=== PATIENT | female | born 1965 | race Caucasian/White ===

== ENCOUNTER 2016-10-16 12:29 | Emergency (ER) | payer MEDICARE, OTHER ==
--- NOTE | 2016-10-16 12:41 | ED ---
SOB HPI - General Chief Complaint: Shortness of Breath Stated Complaint: Syncope Time Seen by Provider: 10/16/16 12:39 Source: patient, EMS Mode of arrival: EMS Limitations: no limitations - History of Present Illness Initial Comments: 51-year-old female presents via EMS. She is at a [facility] she felt dizzy for down to her buttocks but did not pass out. She has no headaches no current dizziness she did not take her blood pressure medicine when she awoke she states one about an hour ago. She is on the Catapres losartan as well as another. She has no current headache dizziness blurry vision double vision chest pain or shortness of breath at the time she states she did feel short of breath but is now feeling better. She has a history of COPD. The patient's ability to answer she appears to know her history she is somewhat guarded and is very simple and her answers. She only indicates she wants to go home back to [facility] she is or 5 days apparently because of depression. - Related Data Home Medications Medication Instructions Recorded Confirmed cloNIDine HCL 0.3 mg PO TID 02/11/16 10/16/16 Losartan Potassium [Cozaar] 100 mg PO DAILY 03/26/16 10/16/16 amLODIPine BESYLATE [Norvasc] 5 mg PO DAILY 05/13/16 10/16/16 HYDROcodone/APAP 7.5-325MG [[place] 1 tab PO BID PRN 09/19/16 10/16/16 7.5-325] diphenhydrAMINE [Benadryl] 50 mg PO HS PRN 10/16/16 10/16/16 Allergies Allergy/AdvReac Type Severity Reaction Status Date / Time latex Allergy Rash/Hives Verified 10/16/16 12:36 levofloxacin [From Levaquin] Allergy Rash/Hives Verified 10/16/16 12:36 Penicillins Allergy Rash/Hives Verified 10/16/16 12:36 propoxyphene Allergy Unknown Verified 10/16/16 12:36 Quinolones Allergy Rash/Hives Verified 10/16/16 12:36 Sulfa (Sulfonamide Allergy Unknown Verified 10/16/16 12:36 Antibiotics) Iodinated Contrast Media - AdvReac Unknown Verified 10/16/16 12:36 Oral and Review of Systems ROS Statement: Those systems with pertinent positive or pertinent negative responses have been documented in the HPI. ROS Other: All systems not noted in ROS Statement are negative. Constitutional: Denies: fever, chills Eyes: Denies: eye pain ENT: Denies: ear pain, throat pain Respiratory: Denies: cough Cardiovascular: Denies: chest pain Endocrine: Denies: fatigue Gastrointestinal: Denies: abdominal pain, nausea, vomiting, diarrhea Genitourinary: Denies: urgency, dysuria, frequency Skin: Denies: rash Neurological: Denies: headache, weakness, numbness, paresthesias, confusion, abnormal gait, vertigo Psychiatric: Denies: anxiety, depression Past Medical History Past Medical History: Hypertension, Respiratory Disorder, Sleep Apnea/CPAP/BIPAP Additional Past Medical History / Comment(s): head injury in the past History of Any Multi-Drug Resistant Organisms: None Reported Past Surgical History: Section, Uterine Ablation Additional Past Surgical History / Comment(s): eye surgery, lithotripsy Past Anesthesia/Blood Transfusion Reactions: No Reported Reaction Past Psychological History: Bipolar, Depression, Schizophrenia Smoking Status: Current every day smoker Past Alcohol Use History: None Reported Past Drug Use History: None Reported Additional Drug Use History / Comment(s): Pt's. UDS is positive for opiates and methamphetamines. - Past Family History Mother Family Medical History: Unable to Obtain Father Family Medical History: Unable to Obtain General Exam Limitations: no limitations General appearance: alert, in no apparent distress Head exam: Present: atraumatic Eye exam: Present: PERRL, EOMI ENT exam: Present: normal oropharynx, mucous membranes moist, TM's normal bilaterally Respiratory exam: Present: normal lung sounds bilaterally Cardiovascular Exam: Present: normal rhythm, normal heart sounds GI/Abdominal exam: Present: soft. Absent: tenderness, guarding Neurological exam: Present: alert, CN II-XII intact Psychiatric exam: Present: normal affect, normal mood Skin exam: Present: warm, dry Course Vital Signs 10/16/16 10/16/16 12:32 12:43 Temperature 97.4 F L Pulse Rate 108 H Respiratory 22 18 Rate Blood Pressure 178/89 O2 Sat by Pulse 96 Oximetry Medical Decision Making - Medical Decision Making Patient appears to be been dizzy from not taking her blood pressure pill her initial blood pressure was 170s to 180s. Is now down to 148 systolic she feels well she would like to go home her lab work is satisfactory chest x-ray shows a chronic right middle lobe scarring or infiltrate. She states she's believe she had a CAT scan in the past we have offered to do the CAT scan here she wants to go home with told her to be sure to discuss this with Dr. Parr. - Lab Data Result diagrams: 10/16/16 13:05 10/16/16 13:05 Lab Results 10/16/16 10/16/16 10/16/16 Range/Units 13:05 13:05 13:05 WBC 10.1 (3.8-10.6) k/uL RBC 5.35 (3.80-5.40) m/uL Hgb 17.2 H (11.4-16.0) gm/dL Hct 52.4 H (34.0-46.0) % MCV 97.8 (80.0-100.0) fL MCH 32.1 (25.0-35.0) pg MCHC 32.8 (31.0-37.0) g/dL RDW 13.4 (11.5-15.5) % Plt Count 317 (150-450) k/uL Neutrophils % 71 % Lymphocytes % 22 % Monocytes % 4 % Eosinophils % 1 % Basophils % 1 % Neutrophils # 7.2 (1.3-7.7) k/uL Lymphocytes # 2.2 (1.0-4.8) k/uL Monocytes # 0.4 (0-1.0) k/uL Eosinophils # 0.1 (0-0.7) k/uL Basophils # 0.1 (0-0.2) k/uL PT (9.0-12.0) sec INR (<1.1) APTT (22.0-30.0) sec Sodium 143 (137-145) mmol/L Potassium 4.5 (3.5-5.1) mmol/L Chloride 106 (98-107) mmol/L Carbon Dioxide 26 (22-30) mmol/L Anion Gap 11 mmol/L BUN 8 (7-17) mg/dL Creatinine 0.66 (0.52-1.04) mg/dL Est GFR (MDRD) Af Amer >60 (>60 ml/min/1.73 sqM) Est GFR (MDRD) Non-Af >60 (>60 ml/min/1.73 sqM) Glucose 121 H (74-99) mg/dL Calcium 9.8 (8.4-10.2) mg/dL Total Bilirubin 0.6 (0.2-1.3) mg/dL AST 22 (14-36) U/L ALT 29 (9-52) U/L Alkaline Phosphatase 103 (38-126) U/L Total Creatine Kinase 90 (30-135) U/L CK-MB (CK-2) 1.9 (0.0-2.4) ng/mL CK-MB (CK-2) Rel Index 2.1 Troponin I <0.012 (0.000-0.034) ng/mL Total Protein 7.4 (6.3-8.2) g/dL Albumin 4.2 (3.5-5.0) g/dL 10/16/16 Range/Units 13:05 WBC (3.8-10.6) k/uL RBC (3.80-5.40) m/uL Hgb (11.4-16.0) gm/dL Hct (34.0-46.0) % MCV (80.0-100.0) fL MCH (25.0-35.0) pg MCHC (31.0-37.0) g/dL RDW (11.5-15.5) % Plt Count (150-450) k/uL Neutrophils % % Lymphocytes % % Monocytes % % Eosinophils % % Basophils % % Neutrophils # (1.3-7.7) k/uL Lymphocytes # (1.0-4.8) k/uL Monocytes # (0-1.0) k/uL Eosinophils # (0-0.7) k/uL Basophils # (0-0.2) k/uL PT 11.1 (9.0-12.0) sec INR 1.1 (<1.1) APTT 25.5 (22.0-30.0) sec Sodium (137-145) mmol/L Potassium (3.5-5.1) mmol/L Chloride (98-107) mmol/L Carbon Dioxide (22-30) mmol/L Anion Gap mmol/L BUN (7-17) mg/dL Creatinine (0.52-1.04) mg/dL Est GFR (MDRD) Af Amer (>60 ml/min/1.73 sqM) Est GFR (MDRD) Non-Af (>60 ml/min/1.73 sqM) Glucose (74-99) mg/dL Calcium (8.4-10.2) mg/dL Total Bilirubin (0.2-1.3) mg/dL AST (14-36) U/L ALT (9-52) U/L Alkaline Phosphatase (38-126) U/L Total Creatine Kinase (30-135) U/L CK-MB (CK-2) (0.0-2.4) ng/mL CK-MB (CK-2) Rel Index Troponin I (0.000-0.034) ng/mL Total Protein (6.3-8.2) g/dL Albumin (3.5-5.0) g/dL - EKG Data -: EKG Interpreted by Me 10/16/16 12:40 EKG 10/16/2016 1236 ventricular rate 103 bpm, ME interval 170 ms, QRS duration 80 ms, QT interval 356 ms sinus tachycardia 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 Just some minor T ST-T changes and flattening. - Radiology Data Radiology results: report reviewed Mild cardiomegaly. Mild pulmonary fibrotic changes. There is chronic right middle lobe infiltrate and atelectasis that is significantly different than but appears to be overall slightly increased compared to old exam is back in 2011 clinical significance of this is not clear Disposition Clinical Impression: Dizziness, Hypertension, Pulmonary infiltrate in right lung on chest x-ray Disposition: HOME SELF-CARE Condition: Fair Instructions: Hypertension (ED) Additional Instructions: Take medications regularly, low-salt diet, follow-up with Dr. Kendrick regarding chronic right middle lobe infiltrate Referrals: Nico Parr MD [Primary Care Provider] - 1-2 days Time of Disposition: 14:09
[2016-10-16 13:13] LABS: Basophils # (A) 0.1 k/uL (0-0.2); Basophils % (A) 1 %; CH 32.8; CHCM 33.7; Eosinophils # (A) 0.1 k/uL (0-0.7); Eosinophils % (A) 1 %; HCT 52.4 % (34.0-46.0); HDW 2.39; HGB 17.2 gm/dL (11.4-16.0); Luc # (Auto) 0.13; Luc % (Auto) 1; Lymphocytes # (A) 2.2 k/uL (1.0-4.8); Lymphocytes % (A) 22 %; MCH 32.1 pg (25.0-35.0); MCHC 32.8 g/dL (31.0-37.0); MCV 97.8 fL (80.0-100.0); Mean Platelet Volume 7.9; Monocytes # (A) 0.4 k/uL (0-1.0); Monocytes % (A) 4 %; Neutrophils # (A) 7.2 k/uL (1.3-7.7); Neutrophils % (A) 71 %; RBC 5.35 m/uL (3.80-5.40); RDW 13.4 % (11.5-15.5); WBC 10.1 k/uL (3.8-10.6); WBC (Perox) 9.89
[2016-10-16 13:22] LABS: INR 1.1 (<1.1); Partial Thromboplastin Time 25.5 sec (22.0-30.0); Prothrombin Time 11.1 sec (9.0-12.0)
[2016-10-16 13:24] LABS: ALT 29 U/L (9-52); AST 22 U/L (14-36); Alkaline Phosphatase 103 U/L (38-126); Anion Gap 11 mmol/L; Blood Urea Nitrogen 8 mg/dL (7-17); Calcium 9.8 mg/dL (8.4-10.2); Carbon Dioxide 26 mmol/L (22-30); Chloride 106 mmol/L (98-107); Glucose 121 mg/dL (74-99); Non-African American GFR(MDRD) >60 (>60 ml/min/1.73 sqM); Sodium 143 mmol/L (137-145); Total Bilirubin 0.6 mg/dL (0.2-1.3); Total Protein 7.4 g/dL (6.3-8.2)
[2016-10-16 13:27] LABS: Creatine Kinase 90 U/L (30-135)
--- NOTE | 2016-10-16 13:31 | XR ---
EXAMINATION TYPE: XR chest 2V DATE OF EXAM: 10/16/2016 1:20 PM COMPARISON: 09/19/2016 HISTORY: Chest pain TECHNIQUE: Frontal and lateral views of the chest are obtained. FINDINGS: Heart is enlarged. There is coarsening of interstitial markings. There is no pleural effus ion. There are no hilar masses. There are chest leads. Bony thorax is intact. There is increased dens ity over the heart on the lateral view of the chest thought to be related to some consolidation and a telectasis in the right middle lobe at the right cardiac border. IMPRESSION: Mild cardiomegaly. Mild pulmonary fibrotic changes. There is a chronic right middle lobe infiltrate and atelectasis that is not significantly different than 07/16/2016 but appears to be ove rall slowly increasing compared to old exams back to 2011. The clinical significance of this is not c lear.
[2016-10-16 13:35] LABS: Potassium 4.5 mmol/L (3.5-5.1)
[2016-10-16 13:40] LABS: Creatine Kinase MB 1.9 ng/mL (0.0-2.4); Troponin I <0.012 ng/mL (0.000-0.034)
[2016-10-16 14:20] VITALS: BP 157/86; PULSE 73; RESP 16; TEMP 98.1
[2016-10-17 07:38] LABS: Glucose,Whole Blood 121 mg/dL (75-99)
== END 2016-10-16 14:28 | disposition home or self-care (01) ==
LOC: EC 12:29
DX: R42 Dizziness and giddiness (principal); R91.8 Other nonspecific abnormal finding of lung field; I10 Essential (primary) hypertension; F17.200 Nicotine dependence, unspecified, uncomplicated; G47.30 Sleep apnea, unspecified; Z99.89 Dependence on other enabling machines and devices; Z79.899 Other long term (current) drug therapy; Z88.0 Allergy status to penicillin; Z88.1 Allergy status to other antibiotic agents; Z88.2 Allergy status to sulfonamides; Z91.040 Latex allergy status
CPT/HCPCS: 36415; 71020; 80053; 82550; 82553; 84484; 85025; 85610; 85730; 93005; 99285

== ENCOUNTER 2016-10-20 12:10 | Emergency (ER) | payer MEDICARE, OTHER ==
[2016-10-20] MEDS ORDERED: methylPREDNISolone SOD SUCCI 125 MG/2 ML VIAL IV STA (12:20)
[2016-10-20] MEDS ORDERED: diphenhydrAMINE 50 MG/ML 1 ML VIAL IVP STA (12:20)
[2016-10-20] MEDS ORDERED: RX INFO: IV CONTRAST WAS GIVEN 1 EACH MISC MISCELLANE PRN (12:20)
--- NOTE | 2016-10-20 12:23 | ED ---
SOB HPI - General Chief Complaint: Shortness of Breath Stated Complaint: MARINA Time Seen by Provider: 10/20/16 12:16 Source: patient, EMS Mode of arrival: EMS Limitations: no limitations - History of Present Illness Initial Comments: Patient complains of chest pain and shortness of breath which began this morning. She has no belly pain. She has no lightheadedness. She has no dizziness. She has no neck pain or stiffness. She has no change in vision or hearing. She has not taken any medication for her symptoms. The pain is in the middle of the chest. It is nonradiating. There are no exacerbating or relieving factors. She denies any recent long plane or car rides. She has had no sick contacts or travel anywhere. - Related Data Home Medications Medication Instructions Recorded Confirmed cloNIDine HCL 0.3 mg PO TID 02/11/16 10/20/16 Losartan Potassium [Cozaar] 100 mg PO DAILY 03/26/16 10/20/16 amLODIPine BESYLATE [Norvasc] 5 mg PO DAILY 05/13/16 10/20/16 HYDROcodone/APAP 7.5-325MG [[place] 1 tab PO BID PRN 09/19/16 10/20/16 7.5-325] diphenhydrAMINE [Benadryl] 50 mg PO HS PRN 10/16/16 10/20/16 Allergies Allergy/AdvReac Type Severity Reaction Status Date / Time latex Allergy Rash/Hives Verified 10/20/16 12:22 levofloxacin [From Levaquin] Allergy Rash/Hives Verified 10/20/16 12:22 Penicillins Allergy Rash/Hives Verified 10/20/16 12:22 propoxyphene Allergy Unknown Verified 10/20/16 12:22 Quinolones Allergy Rash/Hives Verified 10/20/16 12:22 Sulfa (Sulfonamide Allergy Unknown Verified 10/20/16 12:22 Antibiotics) Iodinated Contrast Media - AdvReac Unknown Verified 10/20/16 12:22 Oral and Review of Systems ROS Statement: Those systems with pertinent positive or pertinent negative responses have been documented in the HPI. ROS Other: All systems not noted in ROS Statement are negative. Past Medical History Past Medical History: Hypertension, Respiratory Disorder, Sleep Apnea/CPAP/BIPAP Additional Past Medical History / Comment(s): head injury in the past History of Any Multi-Drug Resistant Organisms: None Reported Past Surgical History: Section, Uterine Ablation Additional Past Surgical History / Comment(s): eye surgery, lithotripsy Past Anesthesia/Blood Transfusion Reactions: No Reported Reaction Past Psychological History: Bipolar, Depression, Schizophrenia Smoking Status: Current every day smoker Past Alcohol Use History: None Reported Past Drug Use History: None Reported Additional Drug Use History / Comment(s): Pt's. UDS is positive for opiates and methamphetamines. - Past Family History Mother Family Medical History: Unable to Obtain Father Family Medical History: Unable to Obtain General Exam Limitations: no limitations General appearance: alert, in no apparent distress Head exam: Present: atraumatic, normocephalic, normal inspection Eye exam: Present: normal appearance, PERRL, EOMI. Absent: scleral icterus, conjunctival injection, periorbital swelling ENT exam: Present: normal exam, mucous membranes moist Neck exam: Present: normal inspection. Absent: tenderness, meningismus, lymphadenopathy Respiratory exam: Present: normal lung sounds bilaterally. Absent: respiratory distress, wheezes, rales, rhonchi, stridor Cardiovascular Exam: Present: regular rate, normal rhythm, normal heart sounds. Absent: systolic murmur, diastolic murmur, rubs, gallop, clicks GI/Abdominal exam: Present: soft, normal bowel sounds. Absent: distended, tenderness, guarding, rebound, rigid Extremities exam: Present: normal inspection, full ROM, normal capillary refill. Absent: tenderness, pedal edema, joint swelling, calf tenderness Back exam: Present: normal inspection Neurological exam: Present: alert, oriented X3, CN II-XII intact Psychiatric exam: Present: normal affect, normal mood Skin exam: Present: warm, dry, intact, normal color. Absent: rash Course Vital Signs 10/20/16 10/20/16 12:15 13:13 Temperature 97.9 F Pulse Rate 85 100 Respiratory 20 18 Rate Blood Pressure 141/69 164/87 O2 Sat by Pulse 97 98 Oximetry Medical Decision Making - Medical Decision Making Patient is complaining of chest pain. The differential includes pulmonary embolus and, acute coronary syndrome, pneumothorax or pneumonia. I ordered a CAT scan of the chest as well as laboratory studies. However patient decided that she does not want any workup and is choosing to leave AGAINST MEDICAL ADVICE. She is alert and oriented 3, capable of making her own medical decisions. I explained to the patient the serious risk of , however she refused to stay. 10/20/16 12:23 Twelve-lead EKG obtained, interpreted by me as showing ventricular rate 105 bpm , normal RI interval and QRS complex is, no ST elevation or depression, interpreted by me as sinus tachycardia. Disposition Clinical Impression: Chest pain Disposition: Left Against Medical Advice Condition: Good Time of Disposition: 13:27
[2016-10-20 13:16] VITALS: BP 164/87; PULSE 100; RESP 18
[2016-10-20] MEDS ORDERED: cloNIDine HCL 0.1 MG TAB PO STA (13:16)
[2016-10-20] MEDS ORDERED: LORazepam 2 MG/ML SYRINGE IV STA (13:17)
[2016-10-20 13:30] VITALS: TEMP 97.8
[2016-10-20 13:43] LABS: Basophils # (A) 0.1 k/uL (0-0.2); Basophils % (A) 1 %; CH 32.6; CHCM 33.2; Eosinophils # (A) 0.2 k/uL (0-0.7); Eosinophils % (A) 2 %; HDW 2.26; HGB 17.3 gm/dL (11.4-16.0); Luc # (Auto) 0.13; Luc % (Auto) 1; Lymphocytes # (A) 1.9 k/uL (1.0-4.8); Lymphocytes % (A) 22 %; MCH 32.8 pg (25.0-35.0); MCHC 33.4 g/dL (31.0-37.0); MCV 98.4 fL (80.0-100.0); Mean Platelet Volume 7.3; Monocytes # (A) 0.6 k/uL (0-1.0); Monocytes % (A) 7 %; Neutrophils % (A) 67 %; RBC 5.28 m/uL (3.80-5.40); RDW 13.1 % (11.5-15.5); WBC 8.9 k/uL (3.8-10.6); WBC (Perox) 8.78
[2016-10-20 13:50] LABS: INR 1.1 (<1.1); Partial Thromboplastin Time 25.4 sec (22.0-30.0); Prothrombin Time 11.1 sec (9.0-12.0)
== END 2016-10-20 13:29 | disposition left against medical advice (07) ==
LOC: EC 12:10 → EEVIPCON 12:10 → EC 13:29
DX: R07.9 Chest pain, unspecified (principal); Z79.899 Other long term (current) drug therapy; Z88.0 Allergy status to penicillin; Z88.2 Allergy status to sulfonamides; Z88.8 Allergy status to other drugs, medicaments and biological substances; Z88.1 Allergy status to other antibiotic agents; Z91.041 Radiographic dye allergy status; Z91.040 Latex allergy status; I10 Essential (primary) hypertension; G47.30 Sleep apnea, unspecified; F17.200 Nicotine dependence, unspecified, uncomplicated
CPT/HCPCS: 36415; 83880; 85025; 85610; 85730; 93005; 99285

== ENCOUNTER 2016-10-21 10:58 | Emergency (ER) | payer MEDICARE, OTHER ==
[2016-10-21 11:04] VITALS: TEMP 98
--- NOTE | 2016-10-21 11:40 | ED ---
General Adult HPI - General Chief complaint: Chest Pain Stated complaint: MARINA, CHEST PAIN, DIZZINESS Time Seen by Provider: 10/21/16 11:17 Source: patient, RN notes reviewed, old records reviewed Mode of arrival: wheelchair Limitations: no limitations - History of Present Illness Initial comments: Complaint history of present illness this is a 51-year-old female who was brought to the emergency room from her [facility] area because of complaint of shortness of breath and chest pain. Patient's been in emergency room several times this week. With similar complaints. Yesterday's notes report that the patient signed out AGAINST MEDICAL ADVICE. She states she did that because she can't lay down flat. Patient reports the pain is in the chest that the left side of the neck. Nausea but no sweats. Not reproducible. Sometimes it comes and lasts an hour and then gone. Currently chest pain-free. Reports that she is short of breath. States that she thinks she was told she had COPD in the past. - Related Data Home Medications Medication Instructions Recorded Confirmed cloNIDine HCL 0.3 mg PO TID 02/11/16 10/21/16 Losartan Potassium [Cozaar] 100 mg PO DAILY 03/26/16 10/21/16 amLODIPine BESYLATE [Norvasc] 5 mg PO DAILY 05/13/16 10/21/16 HYDROcodone/APAP 7.5-325MG [[place] 1 tab PO BID PRN 09/19/16 10/21/16 7.5-325] diphenhydrAMINE [Benadryl] 50 mg PO HS PRN 10/16/16 10/21/16 Allergies Allergy/AdvReac Type Severity Reaction Status Date / Time latex Allergy Rash/Hives Verified 10/21/16 11:22 levofloxacin [From Levaquin] Allergy Rash/Hives Verified 10/21/16 11:22 Penicillins Allergy Rash/Hives Verified 10/21/16 11:22 propoxyphene Allergy Unknown Verified 10/21/16 11:22 Quinolones Allergy Rash/Hives Verified 10/21/16 11:22 Sulfa (Sulfonamide Allergy Unknown Verified 10/21/16 11:22 Antibiotics) Iodinated Contrast Media - AdvReac Unknown Verified 10/21/16 11:22 Oral and Review of Systems ROS Statement: Those systems with pertinent positive or pertinent negative responses have been documented in the HPI. Review of systems. No visual acuity changes or headache she has discomfort when she hasn't into her chest up to her left side of her neck. Currently chest pain-free. When she has pain she is nauseated but denies being diaphoretic. No upset stomach no GI/ problems. No diarrhea. No significant change in any other activities. All systems were reviewed. Past medical problems bipolarschizophrenia. Hypertension, respiratory disorder which the patient characterizes his COPD. Says she has sleep apnea and does not use her CPAP machine. Reportedly per chart has had a head injury in the past which she can't remember. Also kidney stones. Surgeries , uterine ablation, eye surgery and lithotripsy. Family history mother had leukemia. Father had heart disease. Rations ALLERGIES include latex, Levaquin, penicillin, Darvocet, sulfa. Smoker. ROS Other: All systems not noted in ROS Statement are negative. Past Medical History Past Medical History: Hypertension, Respiratory Disorder, Sleep Apnea/CPAP/BIPAP Additional Past Medical History / Comment(s): head injury in the past History of Any Multi-Drug Resistant Organisms: None Reported Past Surgical History: Section, Uterine Ablation Additional Past Surgical History / Comment(s): eye surgery, lithotripsy Past Anesthesia/Blood Transfusion Reactions: No Reported Reaction Past Psychological History: Bipolar, Depression, Schizophrenia Smoking Status: Current every day smoker Past Alcohol Use History: None Reported Past Drug Use History: None Reported Additional Drug Use History / Comment(s): Pt's. UDS is positive for opiates and methamphetamines. - Past Family History Mother Family Medical History: Unable to Obtain Father Family Medical History: Unable to Obtain General Exam - General Exam Comments Initial Comments: General: The patient is awake and alert, in no distress, and does not appear acutely ill. Currently chest pain-free. Currently only complaining of some shortness of breath. Patient reports she has COPD and she smokes. Strongly encouraged stop her smoking. The patient's vital signs show temperature 98.0 pulse 97 respiratory rate 16 pulse ox 94% on room air upon arrival and then 98% while in emergency room being interviewed. A pressure 143/83. Mildly elevated systolic diastolic noted. The patient is mildly stressed. She'll be seen by her family physician. Eye: Pupils are equal, round and reactive to light, extra-ocular movements are intact ; there is normal conjunctiva bilaterally. No signs of icterus. Ears, nose, mouth and throat: There are moist mucous membranes and no oral lesions. Neck: The neck is supple, there is no tenderness . Cardiovascular: There is a regular rate and rhythm. No murmur, rub or gallop is appreciated. Respiratory: Lungs are clear to auscultation, respirations are non-labored, breath sounds are equal. No wheezes, stridor, rales, or rhonchi. Deep breathing does not cause increased discomfort. Gastrointestinal: Soft, non-distended, non-tender abdomen without masses or organomegaly noted. There is no rebound or guarding present. No CVA tenderness. Bowel sounds are unremarkable. Back: There is no tenderness to palpation in the midline. There is no obvious deformity. Patient picks and scratches herself until she believes multiple spots on the back especially the left scapular region. Musculoskeletal: Normal ROM, no tenderness, minimal edema There is no calf tenderness or swelling. Sensation intact. Pulses equal bilaterally 2+. Neurological: CN II-XII intact, There are no obvious motor or sensory deficits. Coordination appears grossly intact. Speech is normal. No evidence of a neuro deficits. No complaints at this time of dizziness. Skin: Patient has self-inflicted abrasions and areas where she scratched herself and bled arms and back. Psychiatric: History of bipolar disorder and schizophrenia. Follows up with [facility]. Denies any depression or suicidal thoughts this time. Limitations: no limitations Course Vital Signs 10/21/16 10/21/16 11:01 11:10 Temperature 98.0 F Pulse Rate 97 Pulse Rate [ 81 Conference Planner ] Respiratory 16 18 Rate Blood Pressure 143/83 O2 Sat by Pulse 94 L Oximetry EKG Findings - EKG Comments: EKG Findings:: EKG was done and reviewed at 11:40 AM showing normal sinus rhythm with a possible age undetermined anteroseptal injury. Otherwise rate 85 , IA interval was 186 QRS 88 QT [address]Tc [address] No [address] ST elevation no ectopy. This EKG was compared to one done just 24 hours ago and they're similar. Medical Decision Making - Medical Decision Making Medical decision making; patient's white count 8.9 hemoglobin; hematocrit of 52 , potassium 4.8 with a BUN 11 creatinine 0.78 GFR greater than 60. Glucose 149. Urine clean no signs of infection. Troponin less than 0.012. Chest x-ray was done and reviewed by radiologist his final impression is heart size is mildly enlarged with pulmonary venous congestion. Hyperinflation compatible with COPD. As read by Dr. rosa Willett - Lab Data Result diagrams: 10/21/16 11:41 10/21/16 11:41 Lab Results 10/21/16 10/21/16 10/21/16 Range/Units 11:41 11:41 11:41 WBC 8.9 (3.8-10.6) k/uL RBC 5.30 (3.80-5.40) m/uL Hgb 17.0 H (11.4-16.0) gm/dL Hct 52.2 H (34.0-46.0) % MCV 98.4 (80.0-100.0) fL MCH 32.0 (25.0-35.0) pg MCHC 32.5 (31.0-37.0) g/dL RDW 13.0 (11.5-15.5) % Plt Count 283 (150-450) k/uL Neutrophils % 73 % Lymphocytes % 18 % Monocytes % 6 % Eosinophils % 2 % Basophils % 1 % Neutrophils # 6.5 (1.3-7.7) k/uL Lymphocytes # 1.6 (1.0-4.8) k/uL Monocytes # 0.5 (0-1.0) k/uL Eosinophils # 0.1 (0-0.7) k/uL Basophils # 0.1 (0-0.2) k/uL PT (9.0-12.0) sec INR (<1.1) APTT (22.0-30.0) sec D-Dimer (<0.60) mg/L FEU Sodium 141 (137-145) mmol/L Potassium 4.8 (3.5-5.1) mmol/L Chloride 106 (98-107) mmol/L Carbon Dioxide 23 (22-30) mmol/L Anion Gap 12 mmol/L BUN 11 (7-17) mg/dL Creatinine 0.78 (0.52-1.04) mg/dL Est GFR (MDRD) Af Amer >60 (>60 ml/min/1.73 sqM) Est GFR (MDRD) Non-Af >60 (>60 ml/min/1.73 sqM) Glucose 149 H (74-99) mg/dL Calcium 9.7 (8.4-10.2) mg/dL Magnesium 1.8 (1.6-2.3) mg/dL Total Bilirubin 0.7 (0.2-1.3) mg/dL AST 27 (14-36) U/L ALT 33 (9-52) U/L Alkaline Phosphatase 101 (38-126) U/L Total Creatine Kinase 95 (30-135) U/L CK-MB (CK-2) 2.0 (0.0-2.4) ng/mL CK-MB (CK-2) Rel Index 2.1 Troponin I <0.012 (0.000-0.034) ng/mL Total Protein 7.6 (6.3-8.2) g/dL Albumin 4.2 (3.5-5.0) g/dL Urine Color Urine Appearance (Clear) Urine pH (5.0-8.0) Ur Specific [place] (1.001-1.035) Urine Protein (Negative) Urine Glucose (UA) (Negative) Urine Ketones (Negative) Urine Blood (Negative) Urine Nitrate (Negative) Urine Bilirubin (Negative) Urine Urobilinogen (<2.0) mg/dL Ur Leukocyte Esterase (Negative) 10/21/16 10/21/16 Range/Units 11:41 11:41 WBC (3.8-10.6) k/uL RBC (3.80-5.40) m/uL Hgb (11.4-16.0) gm/dL Hct (34.0-46.0) % MCV (80.0-100.0) fL MCH (25.0-35.0) pg MCHC (31.0-37.0) g/dL RDW (11.5-15.5) % Plt Count (150-450) k/uL Neutrophils % % Lymphocytes % % Monocytes % % Eosinophils % % Basophils % % Neutrophils # (1.3-7.7) k/uL Lymphocytes # (1.0-4.8) k/uL Monocytes # (0-1.0) k/uL Eosinophils # (0-0.7) k/uL Basophils # (0-0.2) k/uL PT 13.2 H (9.0-12.0) sec INR 1.3 (<1.1) APTT 25.8 (22.0-30.0) sec D-Dimer 0.21 (<0.60) mg/L FEU Sodium (137-145) mmol/L Potassium (3.5-5.1) mmol/L Chloride (98-107) mmol/L Carbon Dioxide (22-30) mmol/L Anion Gap mmol/L BUN (7-17) mg/dL Creatinine (0.52-1.04) mg/dL Est GFR (MDRD) Af Amer (>60 ml/min/1.73 sqM) Est GFR (MDRD) Non-Af (>60 ml/min/1.73 sqM) Glucose (74-99) mg/dL Calcium (8.4-10.2) mg/dL Magnesium (1.6-2.3) mg/dL Total Bilirubin (0.2-1.3) mg/dL AST (14-36) U/L ALT (9-52) U/L Alkaline Phosphatase (38-126) U/L Total Creatine Kinase (30-135) U/L CK-MB (CK-2) (0.0-2.4) ng/mL CK-MB (CK-2) Rel Index Troponin I (0.000-0.034) ng/mL Total Protein (6.3-8.2) g/dL Albumin (3.5-5.0) g/dL Urine Color Colorless Urine Appearance Clear (Clear) Urine pH 5.5 (5.0-8.0) Ur Specific [place] 1.001 (1.001-1.035) Urine Protein Negative (Negative) Urine Glucose (UA) Negative (Negative) Urine Ketones Negative (Negative) Urine Blood Negative (Negative) Urine Nitrate Negative (Negative) Urine Bilirubin Negative (Negative) Urine Urobilinogen <2.0 (<2.0) mg/dL Ur Leukocyte Esterase Negative (Negative) Disposition Clinical Impression: Chest pain Disposition: ADMITTED IP TO THIS [facility] Condition: Fair
[2016-10-21 11:59] LABS: Basophils # (A) 0.1 k/uL (0-0.2); Basophils % (A) 1 %; CH 32.9; CHCM 33.6; Eosinophils # (A) 0.1 k/uL (0-0.7); Eosinophils % (A) 2 %; HCT 52.2 % (34.0-46.0); HDW 2.28; Luc # (Auto) 0.08; Luc % (Auto) 1; Lymphocytes # (A) 1.6 k/uL (1.0-4.8); Lymphocytes % (A) 18 %; MCHC 32.5 g/dL (31.0-37.0); MCV 98.4 fL (80.0-100.0); Mean Platelet Volume 8.5; Monocytes # (A) 0.5 k/uL (0-1.0); Monocytes % (A) 6 %; Neutrophils # (A) 6.5 k/uL (1.3-7.7); Neutrophils % (A) 73 %; WBC 8.9 k/uL (3.8-10.6); WBC (Perox) 8.66
[2016-10-21 12:05] LABS: Appearance,Urine Clear (Clear); Bilirubin,Urine Negative (Negative); Glucose,Urine (UA) Negative (Negative); Ketones,Urine Negative (Negative); Leukocyte Esterase,Urine Negative (Negative); Nitrite,Urine Negative (Negative); PH, Urine 5.5 (5.0-8.0); Protein,Urine Negative (Negative); UA Billing (MACRO vs. MICRO) CHEM; Urobilinogen,Urine <2.0 mg/dL (<2.0)
--- NOTE | 2016-10-21 12:06 | XR ---
EXAMINATION TYPE: XR chest 2V DATE OF EXAM: 10/21/2016 12:01 PM COMPARISON: NONE HISTORY: Shortness of breath TECHNIQUE: Frontal and lateral views of the chest are obtained. FINDINGS: Scattered senescent parenchymal changes noted. Hyperinflation compatible with COPD. No evidence for infiltrate. No evidence for atelectasis. Heart size is mildly enlarged with pulmonary venous congestion. Mediastinal structures are stable and grossly unremarkable. No evidence for hilar prominence. Degenerative changes dorsal spine. IMPRESSION: 1. Heart size is mildly enlarged with pulmonary venous congestion.
[2016-10-21 12:13] LABS: ALT 33 U/L (9-52); AST 27 U/L (14-36); Alkaline Phosphatase 101 U/L (38-126); Anion Gap 12 mmol/L; Blood Urea Nitrogen 11 mg/dL (7-17); Calcium 9.7 mg/dL (8.4-10.2); Carbon Dioxide 23 mmol/L (22-30); Chloride 106 mmol/L (98-107); Glucose 149 mg/dL (74-99); Magnesium 1.8 mg/dL (1.6-2.3); Non-African American GFR(MDRD) >60 (>60 ml/min/1.73 sqM); Sodium 141 mmol/L (137-145); Total Bilirubin 0.7 mg/dL (0.2-1.3); Total Protein 7.6 g/dL (6.3-8.2)
[2016-10-21 12:19] LABS: Potassium 4.8 mmol/L (3.5-5.1)
[2016-10-21 12:20] VITALS: RESP 18
[2016-10-21 12:26] LABS: INR 1.3 (<1.1); Partial Thromboplastin Time 25.8 sec (22.0-30.0); Prothrombin Time 13.2 sec (9.0-12.0)
[2016-10-21 12:28] LABS: Creatine Kinase 95 U/L (30-135)
[2016-10-21 12:40] LABS: Troponin I <0.012 ng/mL (0.000-0.034)
[2016-10-21] MEDS ORDERED: cloNIDine HCL 0.1 MG TAB PO STA (12:47)
[2016-10-21 12:49] LABS: Specific Gravity,Urine 1.001 (1.001-1.035)
[2016-10-21] MEDS ORDERED: FUROSEMIDE 10 MG/ML 4 ML VIAL IV STA (12:52)
[2016-10-21] MEDS ORDERED: IPRATROPIUM-ALBUTEROL 3 ML NEB INHALATION STA (12:52)
[2016-10-21 13:23] VITALS: BP 166/85; PULSE 78
== END 2016-10-21 13:26 | disposition left against medical advice (07) ==
LOC: EC 10:58
DX: R07.9 Chest pain, unspecified (principal); R42 Dizziness and giddiness; R06.02 Shortness of breath; R11.0 Nausea; I10 Essential (primary) hypertension; J44.9 Chronic obstructive pulmonary disease, unspecified; Z79.899 Other long term (current) drug therapy; Z88.0 Allergy status to penicillin; Z88.2 Allergy status to sulfonamides; Z88.8 Allergy status to other drugs, medicaments and biological substances; Z88.1 Allergy status to other antibiotic agents; Z91.041 Radiographic dye allergy status; Z91.040 Latex allergy status; F17.200 Nicotine dependence, unspecified, uncomplicated; F31.9 Bipolar disorder, unspecified; F20.9 Schizophrenia, unspecified; G47.30 Sleep apnea, unspecified; S40.812A Abrasion of left upper arm, initial encounter; S40.811A Abrasion of right upper arm, initial encounter; Y33.XXXA Other specified events, undetermined intent, initial encounter
CPT/HCPCS: 36415; 71020; 80053; 81003; 82550; 82553; 83735; 84484; 85025; 85379; 85610; 85730; 87086; 93005; 99285

== ENCOUNTER → 2016-11-04 | Outpatient (CLI) | payer MEDICARE, OTHER ==
--- NOTE | 2016-11-05 08:39 | ECHOF ---
Referral Reason:R06.01 orhopnea MEASUREMENTS -------- HEIGHT: 154.9 cm WEIGHT: 106.6 kg BP: RVIDd: 3.7 cm (< 3.3) IVSd: 1.4 cm (0.6 - 1.1) LVIDd: 3.7 cm (3.9 - 5.3) LVPWd: 1.4 cm (0.6 - 1.1) IVSs: 2.1 cm LVIDs: 2.4 cm LVPWs: 2.0 cm LA Diam: 3.6 cm (2.7 - 3.8) Ao Diam: 2.6 cm (2.0 - 3.7) AV Cusp: 1.8 cm (1.5 - 2.6) LA Diam: 3.9 cm (2.7 - 3.8) MV EXCURSION: 13.275 mm (> 18.000) MV EF SLOPE: 68 mm/s (70 - 150) EPSS: 0.7 cm MV E Qasim: 0.78 m/s MV DecT: 144 ms MV A Qasim: 0.85 m/s MV E/A Ratio: 0.91 RAP: 5.00 mmHg RVSP: 43.77 mmHg FINDINGS -------- Sinus rhythm. This was a technically difficult study with suboptimal views. Pt. not compliant. There is moderate concentric left ventricular hypertrophy. Overall left ventricular systolic function is normal with, an EF between 55 - 60 %. The right ventricle is mildly enlarged. The left atrial size is normal. The right atrium is normal in size. Aortic valve is trileaflet and is mildly thickened. The mitral valve leaflets are mildly thickened. Mild mitral annular calcification present. There is trace mitral regurgitation. Mild tricuspid regurgitation present. There is mild pulmonary hypertension. The right ventricular systolic pressure, as measured by Doppler, is 43.77mmHg. The pulmonic valve was not well visualized. The aortic root size is normal. Echo free space may represent effusion or a pericardial fat pad. CONCLUSIONS -------- 1. Sinus rhythm. 2. The mitral valve leaflets are mildly thickened. 3. Mild mitral annular calcification present. 4. There is trace mitral regurgitation. 5. Mild tricuspid regurgitation present. 6. There is mild pulmonary hypertension. 7. The right ventricular systolic pressure, as measured by Doppler, is 43.77mmHg. 8. The pulmonic valve was not well visualized. 9. The aortic root size is normal. 10. Echo free space may represent effusion or a pericardial fat pad. 11. This was a technically difficult study with suboptimal views. 12. Pt. not compliant. 13. There is moderate concentric left ventricular hypertrophy. 14. Overall left ventricular systolic function is normal with, an EF between 55 - 60 %. 15. The right ventricle is mildly enlarged. 16. The left atrial size is normal. 17. The right atrium is normal in size. 18. Aortic valve is trileaflet and is mildly thickened. INSULATION MECHANIC: Katrina Post RDCS
== END | disposition home or self-care (01) ==
LOC: RADECHMAIN 12:38
PROVIDERS: ATTEND Internal Medicine
DX: I08.1 Rheumatic disorders of both mitral and tricuspid valves (principal); I27.2 Other secondary pulmonary hypertension; I51.7 Cardiomegaly
CPT/HCPCS: 93306

== ENCOUNTER 2016-11-13 17:50 | Emergency (ER) | payer MEDICARE, OTHER ==
[2016-11-13] MEDS ORDERED: IPRATROPIUM-ALBUTEROL 3 ML NEB INHALATION STA (17:54)
[2016-11-13] MEDS ORDERED: methylPREDNISolone SOD SUCCI 125 MG/2 ML VIAL IV STA (18:00)
--- NOTE | 2016-11-13 18:00 | ED ---
Chest Pain HPI - General Stated Complaint: Chest Pain Time Seen by Provider: 11/13/16 17:50 Source: patient, EMS, RN notes reviewed Mode of arrival: EMS - History of Present Illness Initial Comments: This is a 51-year-old female history of COPD who still smokes who states she's had some shortness of breath police over last couple days with yellow phlegm some chills the phlegm is moderately thick. Patient states that this prior to admission she passed out. She states she has chest tightness was 10/10 severity she was given nitroglycerin per EMS as well as aspirin the pain is now 8/10. She has no prior history of heart disease she does have hypertension. She does not use inhalers or updraft. MD Complaint: chest pain, other - Related Data Home Medications Medication Instructions Recorded Confirmed cloNIDine HCL 0.3 mg PO TID 02/11/16 11/13/16 Losartan Potassium [Cozaar] 100 mg PO DAILY 03/26/16 11/13/16 amLODIPine BESYLATE [Norvasc] 5 mg PO DAILY 05/13/16 11/13/16 HYDROcodone/APAP 7.5-325MG [[place] 1 tab PO BID PRN 09/19/16 11/13/16 7.5-325] diphenhydrAMINE [Benadryl] 50 mg PO HS PRN 10/16/16 11/13/16 Ipratropium-Albuterol Nebulize 3 ml INHALATION RT-Q6H PRN 11/13/16 11/13/16 [Duoneb 0.5 mg-3 mg/3 ml Soln] Previous Rx's Medication Instructions Recorded Azithromycin [Zithromax Z-pack] 250 mg PO DIRECTED #6 tab 11/13/16 predniSONE 20 mg PO BID #10 tab 11/13/16 Allergies Allergy/AdvReac Type Severity Reaction Status Date / Time latex Allergy Rash/Hives Verified 11/13/16 18:36 levofloxacin [From Levaquin] Allergy Rash/Hives Verified 11/13/16 18:36 Penicillins Allergy Rash/Hives Verified 11/13/16 18:36 propoxyphene Allergy Unknown Verified 11/13/16 18:36 Quinolones Allergy Rash/Hives Verified 11/13/16 18:36 Sulfa (Sulfonamide Allergy Unknown Verified 11/13/16 18:36 Antibiotics) Iodinated Contrast Media - AdvReac Unknown Verified 11/13/16 18:36 Oral and Review of Systems ROS Statement: Those systems with pertinent positive or pertinent negative responses have been documented in the HPI. ROS Other: All systems not noted in ROS Statement are negative. Past Medical History Past Medical History: Hypertension, Respiratory Disorder, Sleep Apnea/CPAP/BIPAP Additional Past Medical History / Comment(s): head injury in the past History of Any Multi-Drug Resistant Organisms: None Reported Past Surgical History: Section, Uterine Ablation Additional Past Surgical History / Comment(s): eye surgery, lithotripsy Past Anesthesia/Blood Transfusion Reactions: No Reported Reaction Past Psychological History: Bipolar, Depression, Schizophrenia Smoking Status: Current every day smoker Past Alcohol Use History: None Reported Past Drug Use History: None Reported Additional Drug Use History / Comment(s): Pt's. UDS is positive for opiates and methamphetamines. - Past Family History Mother Family Medical History: Unable to Obtain Father Family Medical History: Unable to Obtain General Exam - General Exam Comments Initial Comments: This is a well-developed well-nourished awake alert anxious appearing female General appearance: alert, anxious Head exam: Present: atraumatic, normocephalic, normal inspection Eye exam: Present: normal appearance, PERRL, EOMI. Absent: scleral icterus, conjunctival injection, periorbital swelling ENT exam: Present: normal exam, mucous membranes moist Neck exam: Present: normal inspection. Absent: tenderness, meningismus, lymphadenopathy Respiratory exam: Present: wheezes, decreased breath sounds. Absent: respiratory distress, rales, rhonchi, stridor Cardiovascular Exam: Present: regular rate, normal rhythm, normal heart sounds. Absent: systolic murmur, diastolic murmur, rubs, gallop, clicks GI/Abdominal exam: Present: soft, normal bowel sounds. Absent: distended, tenderness, guarding, rebound, rigid Extremities exam: Present: normal inspection, full ROM, normal capillary refill. Absent: tenderness, pedal edema, joint swelling, calf tenderness Back exam: Present: normal inspection Neurological exam: Present: alert, oriented X3, CN II-XII intact Psychiatric exam: Present: normal mood, flat affect Skin exam: Present: warm, dry, intact, normal color. Absent: rash Course Vital Signs 02/12/17 02/12/17 02/12/17 17:57 18:06 18:21 Temperature 98.6 F Pulse Rate 83 68 Respiratory 16 14 16 Rate Blood Pressure 139/83 147/89 O2 Sat by Pulse 96 97 Oximetry 11/13/16 11/13/16 18:30 19:50 Temperature 98.0 F Pulse Rate 67 76 Respiratory 16 Rate Blood Pressure 164/92 O2 Sat by Pulse 98 Oximetry - Reevaluation(s) Reevaluation #1: 11/13/16 18:00 We did discuss the risks of smoking and the need to quit smoking. This lasted approximately 3.1 minutes Chest Pain MDM - MDM Reevaluation patient reveals that she is improved in really much better no more chest pain. X-rays were reviewed there is evidence of a right posterior new infiltrate. I did a long discussion with the patient regarding the findings she does not want to be admitted she would rather be discharged and go home this is probably feasible. Patient will be discharged on appropriate medication she is a follow-up with her doctor return when necessary I did again discuss smoking with her she is to stop smoking Critical Care Time Critical Care Time: Yes Critical Care Time: 31 minutes of critical care time which includes initial presentation with history physical monitoring initially EMS run and discussed with paramedics. Reevaluation the patient response to therapy. Multiple discussions with the patient discharge orders and documentation Disposition Clinical Impression: Acute exacerbation of chronic obstructive airways disease, Adult respiratory distress syndrome, Atypical chest pain, Pneumonia, Smoking Disposition: HOME SELF-CARE Condition: Good Instructions: Pneumonia (ED), COPD (Chronic Obstructive Pulmonary Disease) (ED) , How to Stop Smoking (ED) Prescriptions: Azithromycin [Zithromax Z-pack] 250 mg PO DIRECTED #6 tab predniSONE 20 mg PO BID #10 tab
[2016-11-13 18:13] LABS: Basophils # (A) 0.1 k/uL (0-0.2); Basophils % (A) 1 %; CH 32.8; CHCM 34.1; Eosinophils # (A) 0.3 k/uL (0-0.7); Eosinophils % (A) 3 %; HCT 51.4 % (34.0-46.0); HDW 2.29; HGB 17.3 gm/dL (11.4-16.0); Luc # (Auto) 0.16; Luc % (Auto) 2; Lymphocytes # (A) 2.4 k/uL (1.0-4.8); Lymphocytes % (A) 24 %; MCH 32.5 pg (25.0-35.0); MCHC 33.7 g/dL (31.0-37.0); MCV 96.5 fL (80.0-100.0); Mean Platelet Volume 7.8; Monocytes # (A) 0.5 k/uL (0-1.0); Monocytes % (A) 5 %; Neutrophils # (A) 6.6 k/uL (1.3-7.7); Neutrophils % (A) 66 %; RBC 5.33 m/uL (3.80-5.40); RDW 12.8 % (11.5-15.5); WBC (Perox) 10.02
[2016-11-13 18:24] LABS: ALT 40 U/L (9-52); AST 26 U/L (14-36); Alkaline Phosphatase 82 U/L (38-126); Anion Gap 13 mmol/L; Blood Urea Nitrogen 12 mg/dL (7-17); Calcium 9.2 mg/dL (8.4-10.2); Carbon Dioxide 24 mmol/L (22-30); Chloride 104 mmol/L (98-107); Glucose 108 mg/dL (74-99); INR 1.3 (<1.1); Magnesium 1.7 mg/dL (1.6-2.3); Non-African American GFR(MDRD) >60 (>60 ml/min/1.73 sqM); Partial Thromboplastin Time 26.5 sec (22.0-30.0); Prothrombin Time 12.4 sec (9.0-12.0); Sodium 141 mmol/L (137-145); Total Bilirubin 0.3 mg/dL (0.2-1.3); Total Protein 6.8 g/dL (6.3-8.2)
[2016-11-13 18:45] LABS: Creatine Kinase 106 U/L (30-135)
[2016-11-13 18:48] LABS: Potassium 3.8 mmol/L (3.5-5.1)
--- NOTE | 2016-11-13 18:52 | XR ---
EXAMINATION TYPE: XR chest 2V DATE OF EXAM: 11/13/2016 6:39 PM COMPARISON: 10/21/2016 INDICATION: Chest pain and shortness of breath TECHNIQUE: Single frontal view of the chest is obtained. FINDINGS: The heart size is normal. The pulmonary vasculature is normal. Mild posterior medial right lower lobe infiltrate is present. IMPRESSION: 1. Developing posterior medial right lower lobe infiltrate. Correlate for pneumonia
[2016-11-13 18:56] LABS: Troponin I <0.012 ng/mL (0.000-0.034)
[2016-11-13] MEDS ORDERED: AZITHROMYCIN 500 MG TAB PO STA (20:12)
[2016-11-13 20:21] VITALS: BP 166/89; PULSE 72; RESP 18; TEMP 98.4
== END 2016-11-13 20:18 | disposition home or self-care (01) ==
LOC: EC 17:50
DX: J44.1 Chronic obstructive pulmonary disease with (acute) exacerbation (principal); J44.0 Chronic obstructive pulmonary disease with (acute) lower respiratory infection; J18.9 Pneumonia, unspecified organism; J80 Acute respiratory distress syndrome; F20.9 Schizophrenia, unspecified; F31.9 Bipolar disorder, unspecified; F17.200 Nicotine dependence, unspecified, uncomplicated; Z79.52 Long term (current) use of systemic steroids; Z79.899 Other long term (current) drug therapy; Z88.0 Allergy status to penicillin; Z88.1 Allergy status to other antibiotic agents; Z91.040 Latex allergy status; Z91.041 Radiographic dye allergy status; Z88.2 Allergy status to sulfonamides
CPT/HCPCS: 99291 ×2; 96374 ×2; 36415; 94640; 93005; 83880; 80053; 82550; 82553; 83735; 84484; 85025; 85610; 85730; 87040; 71020; J2930

== ENCOUNTER 2016-11-14 12:33 | Emergency (ER) | payer MEDICARE, OTHER ==
[2016-11-14 12:40] VITALS: TEMP 97
--- NOTE | 2016-11-14 12:58 | ED ---
Psych HPI - General Chief Complaint: Psychiatric Symptoms Stated Complaint: Suicidal Time Seen by Provider: 11/14/16 12:36 Source: patient, EMS Mode of arrival: EMS - History of Present Illness Initial Comments: She has a history of psych disorder and she has a cardiac today she is presenting with a suicidal ideation and she said she has financial problems and she is very depressed and feels like slicing S rest or taking her blood pressure pills to harm herself she denies any alcohol or street drugs she sees Dr. Rivera first for psych disorders she seen Dr. Rick couple days ago this according to the patient and she has been taken her psych meds regularly. Denies any headaches no chest pain or shortness of breath or abdominal pain no frequency urgency dysuria - Related Data Home Medications Medication Instructions Recorded Confirmed cloNIDine HCL 0.3 mg PO TID 02/11/16 11/14/16 Losartan Potassium [Cozaar] 100 mg PO DAILY 03/26/16 11/14/16 amLODIPine BESYLATE [Norvasc] 5 mg PO DAILY 05/13/16 11/14/16 HYDROcodone/APAP 7.5-325MG [[place] 1 tab PO BID PRN 09/19/16 11/14/16 7.5-325] diphenhydrAMINE [Benadryl] 50 mg PO HS PRN 10/16/16 11/14/16 Ipratropium-Albuterol Nebulize 3 ml INHALATION RT-Q6H PRN 11/13/16 11/14/16 [Duoneb 0.5 mg-3 mg/3 ml Soln] Previous Rx's Medication Instructions Recorded Azithromycin [Zithromax Z-pack] 250 mg PO DIRECTED #6 tab 11/13/16 predniSONE 20 mg PO BID #10 tab 11/13/16 Allergies Allergy/AdvReac Type Severity Reaction Status Date / Time latex Allergy Rash/Hives Verified 11/14/16 13:21 levofloxacin [From Levaquin] Allergy Rash/Hives Verified 11/14/16 13:21 Penicillins Allergy Rash/Hives Verified 11/14/16 13:21 propoxyphene Allergy Unknown Verified 11/14/16 13:21 Quinolones Allergy Rash/Hives Verified 11/14/16 13:21 Sulfa (Sulfonamide Allergy Unknown Verified 11/14/16 13:21 Antibiotics) Iodinated Contrast Media - AdvReac Unknown Verified 11/14/16 13:21 Oral and Review of Systems ROS Statement: Those systems with pertinent positive or pertinent negative responses have been documented in the HPI. ROS Other: All systems not noted in ROS Statement are negative. Past Medical History Past Medical History: Hypertension, Respiratory Disorder, Sleep Apnea/CPAP/BIPAP Additional Past Medical History / Comment(s): head injury in the past History of Any Multi-Drug Resistant Organisms: None Reported Past Surgical History: Section, Uterine Ablation Additional Past Surgical History / Comment(s): eye surgery, lithotripsy Past Anesthesia/Blood Transfusion Reactions: No Reported Reaction Past Psychological History: Anxiety, Bipolar, Depression, Schizophrenia Smoking Status: Current every day smoker Past Alcohol Use History: None Reported Past Drug Use History: None Reported Additional Drug Use History / Comment(s): Pt's. UDS is positive for opiates and methamphetamines. - Past Family History Mother Family Medical History: Unable to Obtain Father Family Medical History: Unable to Obtain General Exam - General Exam Comments Initial Comments: General: The patient is awake and alert, in no distress, and does not appear acutely ill. Skin: Skin is warm and dry and no rashes or lesions are noted. Eye: Pupils are equal, round and reactive to light, extra-ocular movements are intact; there is normal conjunctiva bilaterally. Ears, nose, mouth and throat: There are moist mucous membranes and no oral lesions. Neck: The neck is supple, there is no tenderness or JVD. Cardiovascular: There is a regular rate and rhythm. No murmur, rub or gallop is appreciated. Respiratory: To auscultation bilateral, no wheezing no rhonchi no distress respiratory becerra noticed Gastrointestinal: Soft, non-distended, non-tender abdomen without masses or organomegaly noted. There is no rebound or guarding present. Bowel sounds are unremarkable. Back: There is no tenderness to palpation in the midline. There is no obvious deformity. Musculoskeletal: Normal ROM, no tenderness, There is no pedal edema. There is no calf tenderness or swelling. No cords were appreciated. Neurological: CN II-XII intact, Cranial nerves III through XII are intact. There are no obvious motor or sensory deficits. Coordination appears grossly intact. Speech is normal. Psychiatric: Cooperative, flat affect, admits to suicidal ideation, feels like slicing her wrist or do overdosed with her blood pressure pills Limitations: no limitations Course Vital Signs 11/14/16 11/14/16 12:34 15:01 Temperature 97 F L Pulse Rate 101 H 103 H Respiratory 16 20 Rate Blood Pressure 186/105 159/70 O2 Sat by Pulse 96 95 Oximetry She was assessed by department of psychiatry they felt that she is safe to go home and considering that patient be discharged and she will follow-up with her psychiatrist as outpatient Disposition Clinical Impression: Schizophrenia Clinical Impression: (Ruled Out): Suicidal ideation Disposition: HOME SELF-CARE Condition: Good Instructions: Schizophrenia (ED) Referrals: Nico Parr MD [Primary Care Provider] - 1-2 days
[2016-11-14] MEDS ORDERED: NICOTINE 21MG/24HR PATCH TRANSDERM STA (14:29)
[2016-11-14 15:02] VITALS: BP 159/70; PULSE 103; RESP 20
== END 2016-11-14 15:23 | disposition home or self-care (01) ==
LOC: EC 12:33
DX: F20.9 Schizophrenia, unspecified (principal); R45.851 Suicidal ideations; I10 Essential (primary) hypertension; G47.30 Sleep apnea, unspecified; F41.9 Anxiety disorder, unspecified; F31.9 Bipolar disorder, unspecified; F17.200 Nicotine dependence, unspecified, uncomplicated; Z79.899 Other long term (current) drug therapy; Z88.0 Allergy status to penicillin; Z88.1 Allergy status to other antibiotic agents; Z91.040 Latex allergy status; Z91.041 Radiographic dye allergy status; Z88.2 Allergy status to sulfonamides; Z88.8 Allergy status to other drugs, medicaments and biological substances
CPT/HCPCS: 99284; 82075; S4990

== ENCOUNTER 2016-11-22 16:08 | Emergency (ER) | payer MEDICARE, OTHER ==
[2016-11-22 16:16] VITALS: TEMP 97.8
[2016-11-22] MEDS ORDERED: methylPREDNISolone SOD SUCCI 125 MG/2 ML VIAL IV STA (16:30)
[2016-11-22] MEDS ORDERED: IPRATROPIUM-ALBUTEROL 3 ML NEB INHALATION STA (16:30)
--- NOTE | 2016-11-22 16:33 | ED ---
Chest Pain HPI - General Chief Complaint: Chest Pain Stated Complaint: Pain Time Seen by Provider: 11/22/16 16:08 Source: patient, EMS, RN notes reviewed, old records reviewed Mode of arrival: EMS Limitations: no limitations - History of Present Illness Initial Comments: This is a 51-year-old female history of COPD who was recently maintains a smoker who presents with complaints of shortness of breath some midsternal chest pain. She is unclear exactly when it started. She denies any fevers chills or sweats she was brought in by EMS. MD Complaint: chest pain, other - Related Data Home Medications Medication Instructions Recorded Confirmed cloNIDine HCL 0.3 mg PO TID 02/11/16 11/22/16 Losartan Potassium [Cozaar] 100 mg PO DAILY 03/26/16 11/22/16 amLODIPine BESYLATE [Norvasc] 5 mg PO DAILY 05/13/16 11/22/16 HYDROcodone/APAP 7.5-325MG [[place] 1 tab PO BID PRN 09/19/16 11/22/16 7.5-325] diphenhydrAMINE [Benadryl] 50 mg PO HS PRN 10/16/16 11/22/16 Ipratropium-Albuterol Nebulize 3 ml INHALATION RT-Q6H PRN 11/13/16 11/22/16 [Duoneb 0.5 mg-3 mg/3 ml Soln] Cetirizine HCl 10 mg PO DAILY 11/22/16 11/22/16 fluPHENAZine DECANOATE [Prolixin 50 mg IM Q7D 11/22/16 11/22/16 Decanoate] Previous Rx's Medication Instructions Recorded Azithromycin [Zithromax Z-pack] 250 mg PO DIRECTED #6 tab 11/22/16 predniSONE 20 mg PO BID #10 tab 11/22/16 Allergies Allergy/AdvReac Type Severity Reaction Status Date / Time latex Allergy Rash/Hives Verified 11/22/16 16:16 levofloxacin [From Levaquin] Allergy Rash/Hives Verified 11/22/16 16:16 Penicillins Allergy Rash/Hives Verified 11/22/16 16:16 propoxyphene Allergy Unknown Verified 11/22/16 16:16 Quinolones Allergy Rash/Hives Verified 11/22/16 16:16 Sulfa (Sulfonamide Allergy Unknown Verified 11/22/16 16:16 Antibiotics) Iodinated Contrast Media - AdvReac Unknown Verified 11/22/16 16:16 Oral and Review of Systems ROS Statement: Those systems with pertinent positive or pertinent negative responses have been documented in the HPI. ROS Other: All systems not noted in ROS Statement are negative. EKG Findings - EKG Results: EKG: interpreted by KORY, sinus rhythm (Sinus rhythm rate of 89. Interval 198 QRS duration 80 daily since QTC of 376/457 red exodeviation poor R-wave progression no acute change seen with compared to an EKG dated 11/13/16) Past Medical History Past Medical History: Hypertension, Respiratory Disorder, Sleep Apnea/CPAP/BIPAP Additional Past Medical History / Comment(s): head injury in the past History of Any Multi-Drug Resistant Organisms: None Reported Past Surgical History: Section, Uterine Ablation Additional Past Surgical History / Comment(s): eye surgery, lithotripsy Past Anesthesia/Blood Transfusion Reactions: No Reported Reaction Past Psychological History: Anxiety, Bipolar, Depression, Schizophrenia Smoking Status: Current every day smoker Past Alcohol Use History: None Reported Past Drug Use History: None Reported Additional Drug Use History / Comment(s): Pt's. UDS is positive for opiates and methamphetamines. - Past Family History Mother Family Medical History: Unable to Obtain Father Family Medical History: Unable to Obtain General Exam - General Exam Comments Initial Comments: This is a well-developed well-nourished awake alert oriented history female Limitations: no limitations General appearance: alert, in no apparent distress Head exam: Present: atraumatic, normocephalic, normal inspection Eye exam: Present: normal appearance, PERRL, EOMI. Absent: scleral icterus, conjunctival injection, periorbital swelling ENT exam: Present: normal exam, mucous membranes moist Neck exam: Present: normal inspection. Absent: tenderness, meningismus, lymphadenopathy Respiratory exam: Present: wheezes, chest wall tenderness (Midsternal and xiphoid tenderness palpation), decreased breath sounds. Absent: respiratory distress, rales, rhonchi, stridor Cardiovascular Exam: Present: regular rate, normal rhythm, normal heart sounds. Absent: systolic murmur, diastolic murmur, rubs, gallop, clicks GI/Abdominal exam: Present: soft, normal bowel sounds. Absent: distended, tenderness, guarding, rebound, rigid Extremities exam: Present: normal inspection, full ROM, normal capillary refill , other (Nicotine stains seen on her left thumb and fingers). Absent: tenderness, pedal edema, joint swelling, calf tenderness Back exam: Present: normal inspection Neurological exam: Present: alert, oriented X3, CN II-XII intact Psychiatric exam: Present: flat affect Skin exam: Present: warm, dry, intact, normal color. Absent: rash Course Vital Signs 11/22/16 11/22/16 11/22/16 16:14 16:40 16:49 Temperature 97.8 F Pulse Rate 73 85 86 Respiratory 18 Rate Blood Pressure 130/73 O2 Sat by Pulse 97 Oximetry Chest Pain MDM - MDM I did review the x-ray report there is some question will evidence of an early infiltrate in the right lower lobe patient does not want to stay longer chest pains got she is breathing better she will be discharged. Disposition Clinical Impression: Chest wall syndrome, Costalchondritis, Acute exacerbation of chronic obstructive airways disease, Pneumonitis, Smoking Disposition: HOME SELF-CARE Condition: Good Instructions: Costochondritis (ED), How to Stop Smoking (ED), COPD (Chronic Obstructive Pulmonary Disease) (ED), Pneumonitis (ED) Prescriptions: Azithromycin [Zithromax Z-pack] 250 mg PO DIRECTED #6 tab predniSONE 20 mg PO BID #10 tab
[2016-11-22 17:01] VITALS: PULSE 86
[2016-11-22 17:04] LABS: Basophils # (A) 0.1 k/uL (0-0.2); Basophils % (A) 1 %; CH 33.1; CHCM 33.7; Eosinophils # (A) 0.2 k/uL (0-0.7); Eosinophils % (A) 2 %; HCT 52.2 % (34.0-46.0); HDW 2.25; HGB 17.3 gm/dL (11.4-16.0); Luc # (Auto) 0.11; Luc % (Auto) 1; Lymphocytes # (A) 2.3 k/uL (1.0-4.8); Lymphocytes % (A) 24 %; MCH 32.7 pg (25.0-35.0); MCHC 33.1 g/dL (31.0-37.0); MCV 98.7 fL (80.0-100.0); Mean Platelet Volume 8.6; Monocytes # (A) 0.5 k/uL (0-1.0); Monocytes % (A) 5 %; Neutrophils # (A) 6.3 k/uL (1.3-7.7); Neutrophils % (A) 67 %; RBC 5.29 m/uL (3.80-5.40); WBC 9.4 k/uL (3.8-10.6); WBC (Perox) 8.76
[2016-11-22 17:04] LABS: Appearance,Urine Clear (Clear); Bilirubin,Urine Negative (Negative); Glucose,Urine (UA) Negative (Negative); Ketones,Urine Negative (Negative); Leukocyte Esterase,Urine Negative (Negative); Nitrite,Urine Negative (Negative); Protein,Urine Negative (Negative); Specific Gravity,Urine 1.001 (1.001-1.035); UA Billing (MACRO vs. MICRO) CHEM; Urobilinogen,Urine <2.0 mg/dL (<2.0)
--- NOTE | 2016-11-22 17:07 | XR ---
EXAMINATION TYPE: XR chest 2V DATE OF EXAM: 11/22/2016 4:59 PM COMPARISON: 11/13/2016 HISTORY: 51-year-old female with chest pain and shortness of breath TECHNIQUE: Frontal and lateral views FINDINGS: Heart remains upper limits of normal in size. Similar diffuse interstitial prominence. No pleural eff usion seen. There is some focal right basilar density. IMPRESSION: Chronic changes but with focal right basilar density. Unable to determine if this relates to underpen etration or developing infiltrate. Dedicated PA view of the chest can be considered.
[2016-11-22 17:21] LABS: ALT 25 U/L (9-52); AST 33 U/L (14-36); Alkaline Phosphatase 87 U/L (38-126); Amylase <30 U/L (30-110); Anion Gap 8 mmol/L; Blood Urea Nitrogen 10 mg/dL (7-17); Calcium 9.8 mg/dL (8.4-10.2); Carbon Dioxide 25 mmol/L (22-30); Chloride 103 mmol/L (98-107); Glucose 120 mg/dL (74-99); Magnesium 1.7 mg/dL (1.6-2.3); Non-African American GFR(MDRD) >60 (>60 ml/min/1.73 sqM); Sodium 136 mmol/L (137-145); Total Bilirubin 1.1 mg/dL (0.2-1.3); Total Protein 7.6 g/dL (6.3-8.2)
[2016-11-22 17:22] LABS: INR 1.2 (<1.1); Partial Thromboplastin Time 26.2 sec (22.0-30.0); Prothrombin Time 11.5 sec (9.0-12.0)
[2016-11-22 17:27] LABS: Potassium 5.2 mmol/L (3.5-5.1)
[2016-11-22 17:33] LABS: Creatine Kinase 104 U/L (30-135)
[2016-11-22 17:46] LABS: Creatine Kinase MB 2.4 ng/mL (0.0-2.4); Troponin I <0.012 ng/mL (0.000-0.034)
[2016-11-22 17:55] VITALS: BP 160/73; RESP 16
== END 2016-11-22 17:41 | disposition home or self-care (01) ==
LOC: EC 16:08
DX: M94.0 Chondrocostal junction syndrome [Tietze] (principal); R07.1 Chest pain on breathing; J44.1 Chronic obstructive pulmonary disease with (acute) exacerbation; J18.9 Pneumonia, unspecified organism; F41.9 Anxiety disorder, unspecified; F31.9 Bipolar disorder, unspecified; F20.9 Schizophrenia, unspecified; F17.200 Nicotine dependence, unspecified, uncomplicated; Z79.899 Other long term (current) drug therapy; Z91.040 Latex allergy status; Z91.041 Radiographic dye allergy status; Z88.0 Allergy status to penicillin; Z88.2 Allergy status to sulfonamides; Z88.1 Allergy status to other antibiotic agents; Z88.8 Allergy status to other drugs, medicaments and biological substances
CPT/HCPCS: 99285; 96374; 36415; 94640; 93005; 83880; 80053; 82150; 82550; 82553; 83690; 83735; 84484; 85025; 85610; 85730; 81003; 71020; J2930

== ENCOUNTER 2016-11-23 12:49 | Inpatient (IN) | payer MEDICARE, MEDICAID ==
--- NOTE | 2016-11-23 13:04 | ED ---
General Adult HPI - General Stated complaint: Psych Eval Time Seen by Provider: 11/23/16 12:55 Source: RN notes reviewed - History of Present Illness Initial comments: 51-year-old female presents to the emergency department with a chief complaint of suicidal ideation. Patient states that she is a plan to either overdose on her blood pressure medication or slit her wrists. Patient states that she has not been hospitalized in a while. Patient states she has no homicidal thoughts. Patient denies any current health concerns. Patient states that she is not currently having any other complaints at this time.Patient denies any recent fever, chills, shortness of breath, chest pain, back pain, abdominal pain , nausea vomiting, numbness or tingling, dysuria or hematuria, constipation or diarrhea, headaches or visual changes, or any other current symptoms. - Related Data Home Medications Medication Instructions Recorded Confirmed cloNIDine HCL 0.3 mg PO TID 02/11/16 11/23/16 Losartan Potassium [Cozaar] 100 mg PO DAILY 03/26/16 11/23/16 amLODIPine BESYLATE [Norvasc] 5 mg PO DAILY 05/13/16 11/23/16 HYDROcodone/APAP 7.5-325MG [[place] 1 tab PO BID PRN 09/19/16 11/23/16 7.5-325] diphenhydrAMINE [Benadryl] 50 mg PO HS PRN 10/16/16 11/23/16 Ipratropium-Albuterol Nebulize 3 ml INHALATION RT-Q6H PRN 11/13/16 11/23/16 [Duoneb 0.5 mg-3 mg/3 ml Soln] Cetirizine HCl 10 mg PO DAILY 11/22/16 11/23/16 fluPHENAZine DECANOATE [Prolixin 50 mg IM Q7D 11/22/16 11/23/16 Decanoate] Previous Rx's Medication Instructions Recorded Azithromycin [Zithromax Z-pack] 250 mg PO DIRECTED #6 tab 11/22/16 predniSONE 20 mg PO BID #10 tab 11/22/16 Allergies Allergy/AdvReac Type Severity Reaction Status Date / Time latex Allergy Rash/Hives Verified 11/23/16 13:20 levofloxacin [From Levaquin] Allergy Rash/Hives Verified 11/23/16 13:20 Penicillins Allergy Rash/Hives Verified 11/23/16 13:20 propoxyphene Allergy Unknown Verified 11/23/16 13:20 Quinolones Allergy Rash/Hives Verified 11/23/16 13:20 Sulfa (Sulfonamide Allergy Unknown Verified 11/23/16 13:20 Antibiotics) Iodinated Contrast Media - AdvReac Unknown Verified 11/23/16 13:20 Oral and Review of Systems ROS Statement: Those systems with pertinent positive or pertinent negative responses have been documented in the HPI. ROS Other: All systems not noted in ROS Statement are negative. Past Medical History Past Medical History: Hypertension, Respiratory Disorder, Sleep Apnea/CPAP/BIPAP Additional Past Medical History / Comment(s): head injury in the past History of Any Multi-Drug Resistant Organisms: None Reported Past Surgical History: Section, Uterine Ablation Additional Past Surgical History / Comment(s): eye surgery, lithotripsy Past Anesthesia/Blood Transfusion Reactions: No Reported Reaction Past Psychological History: Anxiety, Bipolar, Depression, Schizophrenia Smoking Status: Current every day smoker Past Alcohol Use History: None Reported Past Drug Use History: None Reported Additional Drug Use History / Comment(s): Pt's. UDS is positive for opiates and methamphetamines. - Past Family History Mother Family Medical History: Unable to Obtain Father Family Medical History: Unable to Obtain General Exam General appearance: alert, in no apparent distress Neck exam: Present: normal inspection. Absent: tenderness, meningismus, lymphadenopathy Respiratory exam: Present: normal lung sounds bilaterally. Absent: respiratory distress, wheezes, rales, rhonchi, stridor Cardiovascular Exam: Present: regular rate, normal rhythm, normal heart sounds. Absent: systolic murmur, diastolic murmur, rubs, gallop, clicks Back exam: Present: normal inspection Neurological exam: Present: alert, oriented X3, CN II-XII intact. Absent: motor sensory deficit Psychiatric exam: Present: depressed, suicidal ideation. Absent: homicidal ideation Skin exam: Present: warm, dry, intact, normal color. Absent: rash Course Vital Signs 11/23/16 13:20 Temperature 97.1 F L Pulse Rate 99 Respiratory 17 Rate Blood Pressure 164/87 O2 Sat by Pulse 96 Oximetry Medical Decision Making - Medical Decision Making 51-year-old female presents emergency Department chief complaint of suicidal ideation. This time the patient does not appear to have any acute medical health concerns. The patient is cleared to be evaluated by psychiatry. This and the patient will be admitted to the psychiatric unit. Patient agreed with plan. - Lab Data Lab Results 11/23/16 Range/Units 13:02 Urine Color Yellow Urine Appearance Clear (Clear) Urine pH 5.0 (5.0-8.0) Ur Specific [place] 1.006 (1.001-1.035) Urine Protein Negative (Negative) Urine Glucose (UA) Negative (Negative) Urine Ketones Negative (Negative) Urine Blood Small H (Negative) Urine Nitrate Negative (Negative) Urine Bilirubin Negative (Negative) Urine Urobilinogen <2.0 (<2.0) mg/dL Ur Leukocyte Esterase Negative (Negative) Urine RBC <1 (0-5) /hpf Urine WBC 1 (0-5) /hpf Ur Squamous Epith Cells 1 (0-4) /hpf Urine Bacteria Rare H (None) /hpf Urine Mucus Rare H (None) /hpf Disposition Clinical Impression: Depression Disposition: TRANSFER TO PSYCH HOSP/UNIT Time of Disposition: 14:46
[2016-11-23 14:14] LABS: Appearance,Urine Clear (Clear); Bacteria,Urine Rare /hpf; Bilirubin,Urine Negative (Negative); Glucose,Urine (UA) Negative (Negative); Ketones,Urine Negative (Negative); Leukocyte Esterase,Urine Negative (Negative); Mucus,Urine Rare /hpf; Nitrite,Urine Negative (Negative); Particle Count 728; Protein,Urine Negative (Negative); RBC,Urine <1 /hpf (0-5); Specific Gravity,Urine 1.006 (1.001-1.035); Squamous Epithelial Cell,Urine 1 /hpf (0-4); UA Billing (MACRO vs. MICRO) MICRO; Urobilinogen,Urine <2.0 mg/dL (<2.0); WBC,Urine 1 /hpf (0-5)
[2016-11-23] MEDS ORDERED: NICOTINE 14MG/24HR PATCH TRANSDERM STA (14:59)
[2016-11-23] MEDS ORDERED: MAGNESIUM HYDROXIDE 2,400 MG/10 ML CUP PO PRN (15:52)
[2016-11-23] MEDS ORDERED: MAG HYDROX/AL HYDROX/SIMETH 30 ML CUP PO PRN (15:52)
[2016-11-23] MEDS ORDERED: ACETAMINOPHEN TAB 325 MG TAB PO PRN (15:52)
[2016-11-23] MEDS ORDERED: IPRATROPIUM-ALBUTEROL 3 ML NEB INHALATION PRN (15:55)
[2016-11-23] MEDS ORDERED: hydrOXYzine PAMOATE 25 MG CAP PO PRN (16:11)
[2016-11-23] MEDS: HYDROcodone/APAP 5-325MG 1 EACH TAB PO PRN (16:35)
[2016-11-23] MEDS: cloNIDine HCL 0.1 MG TAB PO SCH ×2 (16:35→20:49)
[2016-11-23 17:01] VITALS: BMI 42.3
[2016-11-24] MEDS: HYDROcodone/APAP 5-325MG 1 EACH TAB PO PRN (04:10)
[2016-11-24] MEDS: amLODIPine 5 MG TAB PO SCH (08:35)
[2016-11-24] MEDS: LORATADINE 10 MG TAB PO SCH (08:35)
[2016-11-24] MEDS: cloNIDine HCL 0.1 MG TAB PO SCH ×3 (08:35→18:40)
[2016-11-24] MEDS: LOSARTAN 50 MG TAB PO SCH (08:35)
[2016-11-24] MEDS: NICOTINE 14MG/24HR PATCH TRANSDERM SCH (08:36)
[2016-11-24 10:22] LABS: ALT 26 U/L (9-52); AST 22 U/L (14-36); Alkaline Phosphatase 67 U/L (38-126); Anion Gap 14 mmol/L; Blood Urea Nitrogen 14 mg/dL (7-17); Calcium 9.3 mg/dL (8.4-10.2); Carbon Dioxide 20 mmol/L (22-30); Chloride 107 mmol/L (98-107); Glucose 147 mg/dL (74-99); Non-African American GFR(MDRD) >60 (>60 ml/min/1.73 sqM); Potassium 4.1 mmol/L (3.5-5.1); Sodium 141 mmol/L (137-145); Total Bilirubin 0.6 mg/dL (0.2-1.3); Total Protein 6.6 g/dL (6.3-8.2)
[2016-11-24 10:37] LABS: Basophils # (A) 0.1 k/uL (0-0.2); Basophils % (A) 1 %; CH 31.8; CHCM 32.5; Eosinophils # (A) 0.1 k/uL (0-0.7); Eosinophils % (A) 1 %; HCT 52.7 % (34.0-46.0); HDW 2.19; HGB 17.2 gm/dL (11.4-16.0); Luc # (Auto) 0.19; Luc % (Auto) 2; Lymphocytes # (A) 3.5 k/uL (1.0-4.8); Lymphocytes % (A) 40 %; MCH 32.2 pg (25.0-35.0); MCHC 32.7 g/dL (31.0-37.0); MCV 98.4 fL (80.0-100.0); Monocytes # (A) 0.5 k/uL (0-1.0); Monocytes % (A) 5 %; Neutrophils # (A) 4.5 k/uL (1.3-7.7); Neutrophils % (A) 51 %; RBC 5.35 m/uL (3.80-5.40); WBC 8.8 k/uL (3.8-10.6)
--- NOTE | 2016-11-24 17:58 | HP ---
DATE OF ADMISSION: I did review the patient's records from [facility]. In addition I did interview the patient. HISTORY OF PRESENT ILLNESS: Patient is a 51-year-old female who is currently on court order for one year for treatment. Patient is receiving Social Security Disability benefits and has been living with a roommate (Iesha) for the last 7 months. Patient [facility] for suicidal ideation. Patient has extensive history of mental illness and poor compliance with medication; that is why she is on court order for treatment. She is on long-acting antipsychotic. When I saw the patient this morning, she said, "I'm not suicidal anymore and I want to be discharged." Patient denied any suicidal or homicide ideation. She denied any psychotic feature, but it seems that she is very guarded, suspicious, with paranoia, and very somatic preoccupied. She stated that she has been not sleeping for the last couple of weeks, as "my outpatient psychiatrist doesn't give me Ativan because I am on [place]." According to the patient, she did start taking [place] 2 months ago for arthritis. She denied any current substance abuse history. When I did confront the patient about her urine drug screen that came back positive for cocaine but was not positive for any opiate pain medication, she became very agitated and kept saying "I don't do drugs. I don't know who gave me the cocaine." Patient stated that she did try all the antidepressants, and "Nothing is working with me." According to the patient, she is feeling depressed, but not to the point that she is feeling hopeless or helpless because "I am having financial problems. I'm getting only $30 a month from my guardian and it's not enough." Her current psychotropic medication is Prolixin 150 mg IM injection once a week. ALLERGIES: 1. LATEX. 2. LEVAQUIN. 3. PENICILLIN. 4. SULFA. MEDICAL HISTORY: 1. Hypertension. 2. Sleep apnea, but she is not using CPAP machine. 3. Morbid obesity. PAST PSYCHIATRIC HISTORY: As I mentioned, she has a long history of mental illness with multiple psychiatric hospitalizations. Her last psychiatric hospitalization was here a couple of years ago, and due to poor compliance with medication, she is currently on treatment ordered by the probate court. Psychotropic medication tried on her includes trazodone, Lexapro, Latuda, Haldol Decanoate, Saphris, Risperdal Consta, Fanapt, Lamictal, Abilify, Tegretol, and it seems that most of the medications were discontinued, as the patient was always complaining that "nothing working with me." SUBSTANCE ABUSE HISTORY: As I mentioned before, she denied any current substance abuse history; however, it seems that she has been using cocaine; her urine drug screen was positive for cocaine. But patient denied any. There is past history of alcohol abuse. SOCIAL HISTORY: Patient was after 16 years of marriage. She has been for at least 10 or 11 years. She is the mother of 4 sons and 1 daughter. She is receiving Social Security Disability benefits and she has a guardian whose name is Rachana Tejada. Patient is currently living with a roommate. She stated that she has a very good relationship with her current roommate. MENTAL STATUS EXAMINATION: Patient is a morbidly obese female. Poor hygiene. Poor grooming. Body odor. She was staring at me. Very limited speech productivity. Very defensive. Does not have any insight to her addiction. She denied any current psychotic feature. She denied any current suicidal or homicide ideation. Her only complaint is that she has been not able to sleep since she does not have her Ativan. She was very somatic preoccupied and obsessive about how much [place] I have to put her on. She was oriented to person, place and time. Her thinking is very concrete. Her insight and judgment are very limited. Cognitive function: She scored 22/30 in the mini-mental status examination. INTELLECTUAL FUNCTION: Below average. STRENGTHS: Patient is on court order for treatment. WEAKNESSES: Extensive history of substance abuse with limited insight to it. Poor compliance with medication as prescribed. Extensive history of mental illness. IMPRESSION: 1. Schizophrenia, paranoid type, versus schizoaffective disorder, depressed. 2. Cocaine use disorder. 3. Poor compliance with treatment recommendations. TREATMENT PLAN: The patient was admitted to the mental health unit to stabilize her mood and to monitor her suicidal ideation. Currently she denies any suicidal ideation. She did agree to start Remeron or Mirtazapine to restore her sleep and also help her mood. I will continue her on Prolixin Decanoate 50 mg once a week. Will request a routine medical consultation. Social Work will meet with the patient to complete a psychosocial assessment. Length of stay 1 to 2 days with plan to discharge back to [facility].
--- NOTE | 2016-11-24 18:39 | CONS ---
DATE OF CONSULTATION: ADDENDUM: This is a continuation of my consult: Please include this dictation as a continuation of my previous consult dictation, include it in the same note: ASSESSMENT AND PLAN: 1. Elevated blood pressures and hypertension. The patient appears to have gestational hypertension or ( ) hypertension ( ) which is expected to come down within 12 weeks. Recommend to continue with Labetalol at home and patient ( ) measuring her pressure and if the patient becomes lightheaded or her blood pressure starts dropping down we may need to taper down her labetalol at that time and patient was asked to call either primary care physician or Dr. Cannon at that time. Patient does not have any signs or symptoms of eclampsia at this point of time. Patient was recommended to have her primary care physician ( ) I am recommending either Dr. Phillips or ( ) for that reason. 2. Status post section. Further management as per primary service. Patient is okay to discharge if she is ready to be discharged from [facility] on 100 b.i.d. of Labetalol. The patient was mildly tachycardic which at this point of time, improved with Labetalol itself. Thank you for letting me participate in this patient's care.
--- NOTE | 2016-11-24 19:09 | CONS ---
DATE OF CONSULTATION: REASON FOR CONSULTATION: Recommendations regarding antihypertensive and medical clearance. The patient is a 51-year-old female admitted to the psychiatric floor for management of severe depression and suicidal ideation. Patient is clinically doing well. The patient is on multiple antihypertensives. The patient's blood pressure is doing well. The patient is complaining of shortness of breath. Denied any orthopnea or PND. The patient denied any fever, chills. Patient denied any nausea or vomiting. The patient does have intertrigo for which patient will require Nystatin. Depression is being managed by primary service. Patient is definitely depressed when I evaluated the patient although patient does not have any signs or symptoms of COPD exacerbation. The patient is ( ) breathing treatments, I do not believe the patient will require any systemic steroids or inhalation steroids at this point of time. Her blood pressure remains stable and controlled on ( ). REVIEW OF SYSTEMS: CONSTITUTIONAL: No fever, no malaise, no fatigue. HEENT: No recent visual problems or hearing problems. Denied any sore throat. CARDIOVASCULAR: No chest pain, orthopnea, PND, no palpitations, no syncope. PULMONARY: No shortness of breath, no cough, no hemoptysis. GASTROINTESTINAL: No diarrhea, no nausea, no vomiting, no abdominal pain. Normoactive bowel sounds. NEUROLOGICAL: No headaches, no weakness, no numbness. HEMATOLOGICAL: Denies any bleeding or petechiae. GENITOURINARY: Denies any burning micturition, frequency, or urgency. MUSCULOSKELETAL/RHEUMATOLOGICAL: Denies any joint pain, swelling, or any muscle pain. ENDOCRINE: Denies any polyuria or polydipsia. PSYCHIATRY: As mentioned earlier. The rest of the 14 point review of systems is negative. Home medications include: 1. Clonidine. 2. Amlodipine. 3. Hydrocodone/acetaminophen. 4. ( ). 5. ( ). 6. ( ). 7. Azithromycin. Patient is complaining of cough without any sputum production. ALLERGIES: ALLERGIC TO LATEX, LEVOFLOXACIN AND PROPOXYPHENE, QUINOLONES, SULFA DRUGS, IODINATED CONTRAST. PAST MEDICAL HISTORY: Hypertension. Appears to have COPD and sleep apnea, uses CPAP machine ( ) section, ( ) surgery ( ). Depression. The patient does smoke 1/2 pack per day. Denied any alcohol abuse or any drug abuse. FAMILY HISTORY: Significant for hypertension in the family. PHYSICAL EXAMINATION: Temperature is 97.1, pulse of 99, respiratory rate of 17. Blood pressure is 130/75. Saturating at 96% on room air. PHYSICAL EXAMINATION: GENERAL: The patient is alert and oriented x3, not in any acute distress. Well developed, well nourished. HEENT: Pupils are round and equally reacting to light. EOMI. No scleral icterus. No conjunctival pallor. Normocephalic, atraumatic. No pharyngeal erythema. No thyromegaly. CARDIOVASCULAR: S1 and S2 present. No murmurs, rubs, or gallops. PULMONARY: Chest is clear to auscultation, no wheezing or crackles. ABDOMEN: Soft, nontender, nondistended, normoactive bowel sounds. No palpable organomegaly. MUSCULOSKELETAL: No joint swelling or deformity. EXTREMITIES: No cyanosis, clubbing, or pedal edema. NEUROLOGICAL: Gross neurological examination did not reveal any focal deficits. SKIN: The patient has intertrigo in the right groin area. LABORATORY DATA: UA essentially within normal limits. ASSESSMENT AND PLAN: 1. Hypertension, the patient blood pressure is well-controlled with the present regimen, recommend to continue the current medications. 2. Right groin intertrigo, recommend nystatin twice a day. The patient was consulted to keep it dry. 3. Chronic obstructive pulmonary disease without ( ) continue inhalational treatments. Patient is on prednisone p.o. twice a day 20 mg which can be continued. I do not believe patient has any acute bronchitis at this point of time. 4. Continued nicotine abuse, counselling was provided. 5. Sleep apnea. Patient can continue her CPAP machine. Thank you for letting me participate in this patient's care. Call us back if needed.
[2016-11-24] MEDS ORDERED: MIRTAZAPINE 15 MG TAB PO SCH (21:00)
[2016-11-24] MEDS: NYSTATIN 100,000 UNIT/GM POWD 15 GM TOPICAL SCH (21:37)
[2016-11-25] MEDS: cloNIDine HCL 0.1 MG TAB PO SCH ×2 (06:10→11:10)
[2016-11-25 06:52] VITALS: TEMP 97.7
[2016-11-25] MEDS: amLODIPine 5 MG TAB PO SCH (08:51)
[2016-11-25] MEDS: LORATADINE 10 MG TAB PO SCH (08:51)
[2016-11-25] MEDS: LOSARTAN 50 MG TAB PO SCH (08:51)
[2016-11-25] MEDS: NICOTINE 14MG/24HR PATCH TRANSDERM SCH (08:51)
[2016-11-25] MEDS: NYSTATIN 100,000 UNIT/GM POWD 15 GM TOPICAL SCH (08:51)
[2016-11-25 11:09] VITALS: BP 160/92; PULSE 97; RESP 16
[2016-11-25] MEDS: HYDROcodone/APAP 5-325MG 1 EACH TAB PO PRN (11:21)
--- NOTE | 2016-11-25 19:07 | DS ---
DATE OF ADMISSION: 11/23/2016 DATE OF DISCHARGE: 11/25/2016 Consult physician: Nikki. Consulting provider: Dr. Madison. Consult reason for medical management. Do you want consulting provider notified: He was already notified. DISCHARGE DIAGNOSES: 1. Schizoaffective disorder. 2. Cocaine use disorder. 3. History of polysubstance abuse disorder. 4. History of poor compliance with treatment. For brief summary of admission note: Patient was admitted to the mental health unit from the emergency room after she was presented with suicidal ideation. For complete history and physical examination, please refer to my dictation. HOSPITAL COURSE: Patient was seen for consultation and the assessment and plan stated that the patient has history of hypertension, and they did recommend to continue her on her clonidine. I did restart patient back on Prolixin or she is supposed to have her next injection on the , Prolixin Decanoate 50 mg. In one-to-one I did discuss with the patient her positive drug screen of cocaine and she gets very defensive and angry and she stated "I don't use any drugs. The only think I am using is [place] for back pain"; however, her urine drug screen was not positive for opiate. Patient was asking more than once to be on Ativan as needed especially for sleep; however, I had a lengthy discussion with her about her extensive history of substance abuse and I will not give her any habit-forming medication. When I saw the patient on the she said that she was not suicidal anymore and according to her, what triggered this was that she was not sleeping for a couple of days. In addition, the patient was on prednisone, as he had been on the steroid for her COPD, but the medical affairs manager stated that patient does not need any steroid and he said, I do not believe that the patient will require any more steroid or inhalation steroids at this point and he did recommend just to treat with simple inhaler. Patient is aware that she is on court order. She did not participate in any group therapy. She was staying in bed most of her stay, I did initiate Remeron or mirtazapine at bedtime to help her sleep and she was able to sleep six or seven hours and when I did discuss with her that I will give her prescription for Remeron she said, "I slept on my own" I tried to discuss with her that using any Benadryl for sleep or Ativan is not recommended. She did agree to take the prescription for Remeron. I did discuss her case with the team treatment and they stated that it seems that the patient did reach her base function level and she is ready to be discharged to the outpatient. On the mental status examination at the time of the discharge, patient was sitting quietly on her seat just staring to me, blunted affect. Speech is nonspontaneous but coherent. Thought process is tangential. She is reporting no homicidal or suicide ideation or plan. She does not feel hopeless or helpless. Denied any psychotic feature. No evidence of hypomania or joe. Insight and judgment are limited. PLAN: The patient will be discharged from the mental health unit today to return back home. [facility] will [facility] with [facility]. Patient was given one-month supply of Remeron 15 mg at bedtime. Patient Prolixin 50 mg decanoate is due on November 28. Patient condition at the discharge: stable.
[2016-11-29] MEDS ORDERED: fluPHENAZine DECANOATE 25 MG/ML 5ML MDV IM SCH (10:30)
== END 2016-11-25 12:35 | disposition home or self-care (01) | DRG 885 ==
LOC: EC 12:49 → 3MHU 15:03
PROVIDERS: ADMIT Psychiatry & Neurology Psychiatry; ATTEND Psychiatry & Neurology Psychiatry
DX: F25.9 Schizoaffective disorder, unspecified (principal); R45.851 Suicidal ideations; Z91.14 Patient's other noncompliance with medication regimen; I10 Essential (primary) hypertension; F32.9 Major depressive disorder, single episode, unspecified; F17.200 Nicotine dependence, unspecified, uncomplicated; F14.90 Cocaine use, unspecified, uncomplicated; G47.30 Sleep apnea, unspecified; J44.9 Chronic obstructive pulmonary disease, unspecified; L30.4 Erythema intertrigo; Z79.899 Other long term (current) drug therapy; Z82.49 Family history of ischemic heart disease and other diseases of the circulatory system; Z91.19 Patient's noncompliance with other medical treatment and regimen; Z88.0 Allergy status to penicillin; Z88.2 Allergy status to sulfonamides; Z88.1 Allergy status to other antibiotic agents; Z91.040 Latex allergy status
CPT/HCPCS: 80053; 80306; 81001; 82075; 84443; 85025; 94640; 99285

== ENCOUNTER 2016-12-03 16:42 | Emergency (ER) | payer MEDICARE, OTHER ==
[2016-12-03 16:50] VITALS: RESP 18
--- NOTE | 2016-12-03 17:55 | XR ---
EXAMINATION TYPE: XR chest 2V DATE OF EXAM: 12/03/2016 5:41 PM COMPARISON: 11/22/2016 INDICATION: Chest pain COPD TECHNIQUE: Frontal and lateral views of the chest are obtained. FINDINGS: The heart size is mildly prominent. The pulmonary vasculature is prominent. There is a right lower lobe infiltrate. This is well visualized on the lateral projection. IMPRESSION: 1. Right lower lobe infiltrate. Correlate for pneumonia.
--- NOTE | 2016-12-03 17:56 | ED ---
General Adult HPI - General Chief complaint: Chest Pain Stated complaint: Chest pain Time Seen by Provider: 12/03/16 16:44 Source: patient, family, EMS, RN notes reviewed, old records reviewed Mode of arrival: EMS Limitations: no limitations - History of Present Illness Initial comments: Chief complaint history of present illness this is a 51-year-old female with schizophrenia well-known emergency room for frequent visits for shortness of breath and chest pain. The patient reports she hadn't mid chest discomfort that increases with deep breathing and coughing. Denies any injury. No associated nausea vomiting or sweats. No radiation of pain. - Related Data Home Medications Medication Instructions Recorded Confirmed cloNIDine HCL 0.3 mg PO TID 02/11/16 12/03/16 Losartan Potassium [Cozaar] 100 mg PO DAILY 03/26/16 12/03/16 amLODIPine BESYLATE [Norvasc] 5 mg PO DAILY 05/13/16 12/03/16 Ipratropium-Albuterol Nebulize 3 ml INHALATION RT-Q6H PRN 11/13/16 12/03/16 [Duoneb 0.5 mg-3 mg/3 ml Soln] Cetirizine HCl 10 mg PO DAILY 11/22/16 12/03/16 fluPHENAZine DECANOATE [Prolixin 50 mg IM Q7D 11/22/16 12/03/16 Decanoate] Previous Rx's Medication Instructions Recorded Mirtazapine [Remeron] 15 mg PO HS 30 Days 11/25/16 Azithromycin [Zithromax Z-pack] 250 mg PO DIRECTED #6 tab 12/03/16 Allergies Allergy/AdvReac Type Severity Reaction Status Date / Time latex Allergy Rash/Hives Verified 12/03/16 16:52 levofloxacin [From Levaquin] Allergy Rash/Hives Verified 12/03/16 16:52 Penicillins Allergy Rash/Hives Verified 12/03/16 16:52 propoxyphene Allergy Unknown Verified 12/03/16 16:52 Quinolones Allergy Rash/Hives Verified 12/03/16 16:52 Sulfa (Sulfonamide Allergy Unknown Verified 12/03/16 16:52 Antibiotics) Iodinated Contrast Media - AdvReac Unknown Verified 12/03/16 16:52 Oral and Review of Systems ROS Statement: Those systems with pertinent positive or pertinent negative responses have been documented in the HPI. Review of systems. Denying any headache or visual acuity changes no chest pain at this time no GI/ problems no neuro deficits. All systems reviewed are otherwise negative. Past medical problems negative for COPD and she continues to smoke. Strongly encouraged to stop. Also hypertension, sleep apnea and does not use any CPAP machine. Previous head injury. Surgeries include a and uterine ablation. She's also had kidney stone lithotripsy and eye surgery. The patient 's psychological history significant for depression and bipolar disorder and schizophrenia. This is a he does smoke denies alcohol use. Ration the patient was in emergency room and she had a drug screen done was positive for opiates and amphetamines which she denies taking. ROS Other: All systems not noted in ROS Statement are negative. Past Medical History Past Medical History: Hypertension, Respiratory Disorder, Sleep Apnea/CPAP/BIPAP Additional Past Medical History / Comment(s): head injury in the past History of Any Multi-Drug Resistant Organisms: None Reported Past Surgical History: Section, Uterine Ablation Additional Past Surgical History / Comment(s): eye surgery, lithotripsy Past Anesthesia/Blood Transfusion Reactions: No Reported Reaction Past Psychological History: Anxiety, Bipolar, Depression, Schizophrenia Smoking Status: Current every day smoker Past Alcohol Use History: None Reported Past Drug Use History: None Reported Additional Drug Use History / Comment(s): Pt's. UDS is positive for opiates and methamphetamines. - Past Family History Mother Family Medical History: Unable to Obtain Father Family Medical History: Unable to Obtain General Exam - General Exam Comments Initial Comments: General: The patient is awake and alert, in no distress, and does not appear acutely ill. Complains of mid chest pain one spot increases with deep breathing and coughing. Denies injury. Denies nausea vomiting or sweats. No radiation of pain. Temp 97, pulse 81 respiratory rate 18 pulse ox 94% on room air blood pressure 143/84. Elevated systolic noted patient is going to be referred back to her family physician this week. Eye: Pupils are equal, round and reactive to light, extra-ocular movements are intact ; there is normal conjunctiva bilaterally. No signs of icterus. Ears, nose, mouth and throat: There are moist mucous membranes and no oral lesions. Neck: The neck is supple, there is no tenderness . Cardiovascular: There is a regular rate and rhythm. No murmur, rub or gallop is appreciated. Respiratory: , respirations are non-labored, breath sounds are equal. Occasional rales at the bases. Chest pain she is complaining of is easily reproduced by taking a deep breath or coughing. Chest wall examined no evidence of any rash shingles- like. Early shingles was discussed. Gastrointestinal: Soft, non-distended, non-tender abdomen without masses or organomegaly noted. There is no rebound or guarding present. No CVA tenderness. Bowel sounds are unremarkable. Back: There is no tenderness to palpation in the midline. There is no obvious deformity. No rashes noted. Patient does pick at her skin has multiple small open areas none of which per to be infected. Musculoskeletal: Normal ROM, no tenderness, There is no pedal edema. There is no calf tenderness or swelling. Sensation intact. Neurological: CN II-XII intact, There are no obvious motor or sensory deficits. Coordination appears grossly intact. Speech is normal. Denies any balance problems. No complaint of any focal or lateralizing problems Skin: Skin is warm and dry and no rashes or lesions are noted. Psychiatric: Past history includes bipolar disorder and schizophrenia. The patient is seeing a psychiatrist. Denies depression or suicidal thoughts this time. Limitations: no limitations Course Vital Signs 12/03/16 16:44 Temperature 97.4 F L Pulse Rate 81 Respiratory 18 Rate Blood Pressure 143/84 O2 Sat by Pulse 94 L Oximetry Medical Decision Making - Medical Decision Making S x-ray is done and reviewed by radiologist his impression is heart size is mildly prominent. Pulmonary vasculature is prominent. There is right lower lobe infiltrate. This is well visualized on the lateral projection. Impression right lower lobe infiltrate. Correlate for pneumonia. As read by Dr. Pepper Patient wants to leave now. We did discuss use of azithromycin and acute acquired pneumonia. She states she cannot take Levaquin which is why she is not being prescribed at this time. She develops a fever productive cough or worsening condition she is to return emergency room. Disposition Clinical Impression: Pneumonia Disposition: HOME SELF-CARE Condition: Fair Instructions: Costochondritis (ED), Bacterial Pneumonia (ED) Additional Instructions: Stop smoking. Increase fluids. Take azithromycin until complete. Prescriptions: Azithromycin [Zithromax Z-pack] 250 mg PO DIRECTED #6 tab Time of Disposition: 18:29
[2016-12-03] MEDS ORDERED: AZITHROMYCIN 250 MG TAB PO STA (18:09)
[2016-12-03 19:20] VITALS: BP 166/91; PULSE 88; TEMP 98.4
== END 2016-12-03 19:20 | disposition home or self-care (01) ==
LOC: EC 16:42
DX: J15.9 Unspecified bacterial pneumonia (principal); M94.0 Chondrocostal junction syndrome [Tietze]; I10 Essential (primary) hypertension; G47.30 Sleep apnea, unspecified; F41.9 Anxiety disorder, unspecified; F31.9 Bipolar disorder, unspecified; F20.9 Schizophrenia, unspecified; F17.200 Nicotine dependence, unspecified, uncomplicated; Z79.899 Other long term (current) drug therapy; Z91.040 Latex allergy status; Z88.1 Allergy status to other antibiotic agents; Z88.0 Allergy status to penicillin; Z88.8 Allergy status to other drugs, medicaments and biological substances; Z88.2 Allergy status to sulfonamides; Z91.041 Radiographic dye allergy status
CPT/HCPCS: 36415; 71020; 84484; 93005; 99285

== ENCOUNTER 2016-12-24 17:30 | Emergency (ER) | payer MEDICARE, OTHER ==
[2016-12-24] MEDS ORDERED: ASPIRIN 81 MG CHEW PO STA (17:48)
[2016-12-24] MEDS ORDERED: IPRATROPIUM-ALBUTEROL 3 ML NEB INHALATION STA (17:51)
[2016-12-24 18:27] LABS: Basophils # (A) 0.2 k/uL (0-0.2); Basophils % (A) 2 %; CH 32.4; CHCM 34.4; Eosinophils % (A) 0 %; HCT 51.2 % (34.0-46.0); HDW 2.22; HGB 17.4 gm/dL (11.4-16.0); Luc % (Auto) 2; Lymphocytes # (A) 1.5 k/uL (1.0-4.8); Lymphocytes % (A) 17 %; MCH 32.2 pg (25.0-35.0); MCV 94.5 fL (80.0-100.0); Mean Platelet Volume 8.2; Monocytes # (A) 0.7 k/uL (0-1.0); Monocytes % (A) 8 %; Neutrophils % (A) 71 %; RBC 5.42 m/uL (3.80-5.40); RDW 12.9 % (11.5-15.5); WBC 8.5 k/uL (3.8-10.6); WBC (Perox) 7.39
[2016-12-24 18:36] LABS: ALT 24 U/L (9-52); AST 19 U/L (14-36); Alkaline Phosphatase 125 U/L (38-126); Anion Gap 11 mmol/L; Blood Urea Nitrogen 12 mg/dL (7-17); Calcium 9.6 mg/dL (8.4-10.2); Carbon Dioxide 26 mmol/L (22-30); Chloride 103 mmol/L (98-107); Glucose 96 mg/dL (74-99); Non-African American GFR(MDRD) >60 (>60 ml/min/1.73 sqM); Potassium 4.2 mmol/L (3.5-5.1); Sodium 140 mmol/L (137-145); Total Bilirubin 0.4 mg/dL (0.2-1.3); Total Protein 7.6 g/dL (6.3-8.2)
[2016-12-24 18:44] LABS: INR 1.2 (<1.1); Prothrombin Time 11.6 sec (9.0-12.0)
[2016-12-24 18:45] LABS: Partial Thromboplastin Time 25.8 sec (22.0-30.0)
--- NOTE | 2016-12-24 18:46 | XR ---
EXAMINATION TYPE: XR chest 2V DATE OF EXAM: 12/24/2016 6:29 PM COMPARISON: 12/03/2016 HISTORY: Chest pain TECHNIQUE: Frontal and lateral views of the chest are obtained. FINDINGS: There is no heart failure nor confluent pneumonic infiltrate. There is probably some inter stitial infiltrate in the right lower lobe. There are no hilar masses. Mediastinum is normal. There a re chest leads. There is no sign of pleural effusion. IMPRESSION: There is mild interstitial density in the right lower lobe that could relate to mild pne umonia that is improved compared to previous exams. No heart failure.
[2016-12-24 19:02] LABS: Creatine Kinase 101 U/L (30-135)
[2016-12-24 19:15] LABS: Creatine Kinase MB 1.3 ng/mL (0.0-2.4); Troponin I <0.012 ng/mL (0.000-0.034)
--- NOTE | 2016-12-24 19:27 | ED ---
URI HPI - General Chief Complaint: Upper Respiratory Infection Stated Complaint: Chest Pain Time Seen by Provider: 12/24/16 17:39 Source: patient, EMS Mode of arrival: EMS Limitations: no limitations - History of Present Illness Initial Comments: This 51-year-old white female presents with a complaint of having a cough for the last 2 weeks. She states that she will have a reproducible bilateral chest pain which is described as a tightness. She's felt short of breath at times. She is brought up a whitish phlegm-type production. She was seen here approximately 2 weeks ago and diagnosed with a pneumonia. She did take some Zithromax and her symptoms did seem to improve but then reoccurred. She does still utilize tobacco and states that she smokes 3 cigars earlier today. She does have a history of COPD. She is here quite frequently and the staff knows her quite well due to the frequency of her ER visits for similar symptoms. No other complaints or modifying factors. No fevers or chills. - Related Data Home Medications Medication Instructions Recorded Confirmed cloNIDine HCL 0.3 mg PO TID 02/11/16 12/24/16 Losartan Potassium [Cozaar] 100 mg PO DAILY 03/26/16 12/24/16 amLODIPine BESYLATE [Norvasc] 5 mg PO DAILY 05/13/16 12/24/16 Ipratropium-Albuterol Nebulize 3 ml INHALATION RT-Q6H PRN 11/13/16 12/24/16 [Duoneb 0.5 mg-3 mg/3 ml Soln] Cetirizine HCl 10 mg PO DAILY 11/22/16 12/24/16 fluPHENAZine DECANOATE [Prolixin 50 mg IM Q7D 11/22/16 12/24/16 Decanoate] HYDROcodone/APAP 7.5-325MG [[place] 1 tab PO BID 12/24/16 12/24/16 7.5-325] Previous Rx's Medication Instructions Recorded Mirtazapine [Remeron] 15 mg PO HS 30 Days 11/25/16 Albuterol Sulfate [Proair Hfa] 2 puff INHALATION Q4H PRN #1 12/24/16 inhaler Doxycycline Hyclate [Vibramycin] 100 mg PO BID #20 cap 12/24/16 Allergies Allergy/AdvReac Type Severity Reaction Status Date / Time latex Allergy Rash/Hives Verified 12/03/16 16:52 levofloxacin [From Levaquin] Allergy Rash/Hives Verified 12/03/16 16:52 Penicillins Allergy Rash/Hives Verified 12/03/16 16:52 propoxyphene Allergy Unknown Verified 12/03/16 16:52 Quinolones Allergy Rash/Hives Verified 12/03/16 16:52 Sulfa (Sulfonamide Allergy Unknown Verified 12/03/16 16:52 Antibiotics) Iodinated Contrast Media - AdvReac Unknown Verified 12/03/16 16:52 Oral and Review of Systems ROS Statement: Those systems with pertinent positive or pertinent negative responses have been documented in the HPI. ROS Other: All systems not noted in ROS Statement are negative. Past Medical History Past Medical History: Hypertension, Respiratory Disorder, Sleep Apnea/CPAP/BIPAP Additional Past Medical History / Comment(s): head injury in the past History of Any Multi-Drug Resistant Organisms: None Reported Past Surgical History: Section, Uterine Ablation Additional Past Surgical History / Comment(s): eye surgery, lithotripsy Past Anesthesia/Blood Transfusion Reactions: No Reported Reaction Past Psychological History: Anxiety, Bipolar, Depression, Schizophrenia Smoking Status: Current every day smoker Past Alcohol Use History: None Reported Past Drug Use History: None Reported Additional Drug Use History / Comment(s): Pt's. UDS is positive for opiates and methamphetamines. - Past Family History Mother Family Medical History: Unable to Obtain Father Family Medical History: Unable to Obtain General Exam - General Exam Comments Initial Comments: GENERAL: The patient is well nourished and well hydrated. VITAL SIGNS: Heart rate, blood pressure, respiratory rate reviewed as recorded in nurse's notes. EYES: Pupils are round and reactive. Extraocular movements are intact. No conjunctival / lid redness or swelling. ENT: No external evidence of injury, swelling, or ecchymosis. Airway is patent. Throat is clear. NECK: Nontender. No swelling or evidence of injury. No subcutaneous emphysema. Trachea is midline. No thyroid mass. HEART: Regular rate and rhythm. Good peripheral pulses. LUNGS/CHEST: Occasional wheezing noted bilaterally. No ecchymosis, subcutaneous emphysema. There is mild tenderness on upon palpation of the chest wall. ABDOMEN: Abdomen soft without tenderness. No palpable masses or organomegaly. No peritoneal signs. No abdominal wall swelling or ecchymosis. EXTREMITIES: No extremity tenderness. Normal muscle tone and function. No thoracolumbar tenderness. NEUROLOGIC: Sensation is grossly intact. Cranial nerve exam reveals face is symmetrical, tongue is midline, speech is clear. SKIN: No abrasions or ecchymosis is noted. No induration or masses noted. PSYCHIATRIC: Alert and oriented. Appropriate behavior and judgment. Limitations: no limitations Course Vital Signs 12/24/16 12/24/16 12/24/16 17:32 18:06 18:15 Temperature 99.8 F H Pulse Rate 100 103 H 96 Respiratory 20 Rate Blood Pressure 145/94 O2 Sat by Pulse 95 Oximetry Medical Decision Making - Medical Decision Making The patient was seen and examined. All diagnostics were reviewed. The patient did have a EKG which shows a normal sinus rhythm at a rate of [address]-T wave changes noted. The ND interval is 184, QRS duration is 84, and the QTc interval is 467. The patient also had a chest x-ray which showed a mild interstitial density in the right lower lobe that could relate to mild pneumonia that is improved compared to previous exams. There is no evidence of heart failure. Is felt that she may have a slight degree of pneumonia. Overall , is felt as though she is stable for discharge. Her chest pain is reproducible and is quite atypical for any cardiac ischemic disease. She does have a slight temperature 99.8. She'll be placed on some antibiotics. Is felt as though she is stable for discharge and leaves in no severe distress. - Lab Data Result diagrams: 12/24/16 18:15 12/24/16 18:15 Lab Results 12/24/16 12/24/16 12/24/16 Range/Units 18:15 18:15 18:15 WBC 8.5 (3.8-10.6) k/uL RBC 5.42 H (3.80-5.40) m/uL Hgb 17.4 H (11.4-16.0) gm/dL Hct 51.2 H (34.0-46.0) % MCV 94.5 (80.0-100.0) fL MCH 32.2 (25.0-35.0) pg MCHC 34.0 (31.0-37.0) g/dL RDW 12.9 (11.5-15.5) % Plt Count 252 (150-450) k/uL Neutrophils % 71 % Lymphocytes % 17 % Monocytes % 8 % Eosinophils % 0 % Basophils % 2 % Neutrophils # 6.0 (1.3-7.7) k/uL Lymphocytes # 1.5 (1.0-4.8) k/uL Monocytes # 0.7 (0-1.0) k/uL Eosinophils # 0.0 (0-0.7) k/uL Basophils # 0.2 (0-0.2) k/uL PT (9.0-12.0) sec INR (<1.1) APTT (22.0-30.0) sec Sodium 140 (137-145) mmol/L Potassium 4.2 (3.5-5.1) mmol/L Chloride 103 (98-107) mmol/L Carbon Dioxide 26 (22-30) mmol/L Anion Gap 11 mmol/L BUN 12 (7-17) mg/dL Creatinine 0.74 (0.52-1.04) mg/dL Est GFR (MDRD) Af Amer >60 (>60 ml/min/1.73 sqM) Est GFR (MDRD) Non-Af >60 (>60 ml/min/1.73 sqM) Glucose 96 (74-99) mg/dL Calcium 9.6 (8.4-10.2) mg/dL Magnesium 2.0 (1.6-2.3) mg/dL Total Bilirubin 0.4 (0.2-1.3) mg/dL AST 19 (14-36) U/L ALT 24 (9-52) U/L Alkaline Phosphatase 125 (38-126) U/L Total Creatine Kinase 101 (30-135) U/L CK-MB (CK-2) 1.3 (0.0-2.4) ng/mL CK-MB (CK-2) Rel Index 1.3 Troponin I <0.012 (0.000-0.034) ng/mL NT-Pro-B Natriuret Pep pg/mL Total Protein 7.6 (6.3-8.2) g/dL Albumin 4.2 (3.5-5.0) g/dL 12/24/16 12/24/16 Range/Units 18:15 18:15 WBC (3.8-10.6) k/uL RBC (3.80-5.40) m/uL Hgb (11.4-16.0) gm/dL Hct (34.0-46.0) % MCV (80.0-100.0) fL MCH (25.0-35.0) pg MCHC (31.0-37.0) g/dL RDW (11.5-15.5) % Plt Count (150-450) k/uL Neutrophils % % Lymphocytes % % Monocytes % % Eosinophils % % Basophils % % Neutrophils # (1.3-7.7) k/uL Lymphocytes # (1.0-4.8) k/uL Monocytes # (0-1.0) k/uL Eosinophils # (0-0.7) k/uL Basophils # (0-0.2) k/uL PT 11.6 (9.0-12.0) sec INR 1.2 (<1.1) APTT 25.8 (22.0-30.0) sec Sodium (137-145) mmol/L Potassium (3.5-5.1) mmol/L Chloride (98-107) mmol/L Carbon Dioxide (22-30) mmol/L Anion Gap mmol/L BUN (7-17) mg/dL Creatinine (0.52-1.04) mg/dL Est GFR (MDRD) Af Amer (>60 ml/min/1.73 sqM) Est GFR (MDRD) Non-Af (>60 ml/min/1.73 sqM) Glucose (74-99) mg/dL Calcium (8.4-10.2) mg/dL Magnesium (1.6-2.3) mg/dL Total Bilirubin (0.2-1.3) mg/dL AST (14-36) U/L ALT (9-52) U/L Alkaline Phosphatase (38-126) U/L Total Creatine Kinase (30-135) U/L CK-MB (CK-2) (0.0-2.4) ng/mL CK-MB (CK-2) Rel Index Troponin I (0.000-0.034) ng/mL NT-Pro-B Natriuret Pep 119 pg/mL Total Protein (6.3-8.2) g/dL Albumin (3.5-5.0) g/dL Disposition Clinical Impression: Pneumonia, COPD (chronic obstructive pulmonary disease), Musculoskeletal chest pain, Tobacco abuse Disposition: HOME SELF-CARE Condition: Good Instructions: Bacterial Pneumonia (ED), COPD (Chronic Obstructive Pulmonary Disease) (ED), Chest Wall Pain (ED), How to Stop Smoking (ED) Additional Instructions: Please use your home nebulized treatments every 4 hours while home and utilize the inhaler when away from home. He also may take Tylenol if needed for any fever or pain. Prescriptions: Albuterol Sulfate [Proair Hfa] 2 puff INHALATION Q4H PRN #1 inhaler PRN Reason: Shortness Of Breath Or Wheezing Doxycycline Hyclate [Vibramycin] 100 mg PO BID #20 cap Referrals: Nico Parr MD [Primary Care Provider] - 1-2 days Time of Disposition: 19:33
[2016-12-24 20:23] VITALS: BP 150/92; PULSE 90; RESP 18; TEMP 98.1
== END 2016-12-24 20:28 | disposition home or self-care (01) ==
LOC: EC 17:30
DX: J18.9 Pneumonia, unspecified organism (principal); J44.9 Chronic obstructive pulmonary disease, unspecified; R07.89 Other chest pain; F17.290 Nicotine dependence, other tobacco product, uncomplicated; I10 Essential (primary) hypertension; F20.9 Schizophrenia, unspecified; F31.9 Bipolar disorder, unspecified; F41.9 Anxiety disorder, unspecified; G47.30 Sleep apnea, unspecified; Z99.89 Dependence on other enabling machines and devices; Z79.899 Other long term (current) drug therapy; Z91.040 Latex allergy status; Z88.0 Allergy status to penicillin; Z88.1 Allergy status to other antibiotic agents; Z88.2 Allergy status to sulfonamides
CPT/HCPCS: 36415; 71020; 80053; 82550; 82553; 83735; 83880; 84484; 85025; 85610; 85730; 87040; 93005; 94640; 99284

== ENCOUNTER 2016-12-27 14:45 | Observation (INO) | payer MEDICARE, OTHER ==
[2016-12-27] MEDS ORDERED: methylPREDNISolone SOD SUCCI 125 MG/2 ML VIAL IV STA (15:57)
[2016-12-27] MEDS ORDERED: IPRATROPIUM-ALBUTEROL 3 ML NEB INHALATION STA (15:57)
[2016-12-27] MEDS ORDERED: SODIUM CHLORIDE 0.9% 1,000 ML IV ONE (15:57)
[2016-12-27] MEDS ORDERED: KETOROLAC 30 MG/ML 1 ML VIAL IVP STA (16:13)
[2016-12-27 16:37] LABS: Appearance,Urine Clear (Clear); Bilirubin,Urine Negative (Negative); Glucose,Urine (UA) Negative (Negative); Ketones,Urine Trace (Negative); Leukocyte Esterase,Urine Negative (Negative); Mucus,Urine Rare /hpf; Nitrite,Urine Negative (Negative); PH, Urine 5.5 (5.0-8.0); Particle Count 1040; Protein,Urine Negative (Negative); RBC,Urine 5 /hpf (0-5); Specific Gravity,Urine 1.007 (1.001-1.035); Squamous Epithelial Cell,Urine 2 /hpf (0-4); UA Billing (MACRO vs. MICRO) MICRO; Urobilinogen,Urine <2.0 mg/dL (<2.0); WBC,Urine 1 /hpf (0-5)
[2016-12-27 17:26] LABS: Basophils # (A) 0.1 k/uL (0-0.2); Basophils % (A) 1 %; CH 32.3; CHCM 33.9; Eosinophils % (A) 1 %; HCT 54.9 % (34.0-46.0); HDW 2.32; HGB 18.4 gm/dL (11.4-16.0); Luc # (Auto) 0.19; Luc % (Auto) 3; Lymphocytes # (A) 2.5 k/uL (1.0-4.8); Lymphocytes % (A) 35 %; MCHC 33.5 g/dL (31.0-37.0); MCV 95.6 fL (80.0-100.0); Mean Platelet Volume 8.4; Monocytes # (A) 0.4 k/uL (0-1.0); Monocytes % (A) 5 %; Neutrophils % (A) 56 %; RBC 5.74 m/uL (3.80-5.40); RDW 12.9 % (11.5-15.5); WBC 7.2 k/uL (3.8-10.6); WBC (Perox) 7.23
[2016-12-27] MEDS ORDERED: fentaNYL (PF) 50 MCG/ML 2 ML AMP IV ONE (17:31)
[2016-12-27 17:34] LABS: INR 1.2 (<1.1); Partial Thromboplastin Time 24.6 sec (22.0-30.0); Prothrombin Time 11.8 sec (9.0-12.0)
[2016-12-27 17:35] LABS: ALT 34 U/L (9-52); AST 32 U/L (14-36); Alkaline Phosphatase 120 U/L (38-126); Anion Gap 10 mmol/L; Blood Urea Nitrogen 9 mg/dL (7-17); Calcium 9.5 mg/dL (8.4-10.2); Carbon Dioxide 24 mmol/L (22-30); Chloride 107 mmol/L (98-107); Glucose 96 mg/dL (74-99); Non-African American GFR(MDRD) >60 (>60 ml/min/1.73 sqM); Sodium 141 mmol/L (137-145); Total Protein 7.9 g/dL (6.3-8.2)
--- NOTE | 2016-12-27 17:40 | XR ---
EXAMINATION TYPE: XR chest 2V DATE OF EXAM: 12/27/2016 5:29 PM COMPARISON: 12/24/2016 HISTORY: Dyspnea and dizziness TECHNIQUE: Frontal and lateral views of the chest are obtained. FINDINGS: There is no focal air space opacity, pleural effusion, or pneumothorax seen. The cardiac silhouette size is within normal limits. The osseous structures are intact. IMPRESSION: No acute cardiopulmonary process.
[2016-12-27] MEDS ORDERED: NICOTINE 21MG/24HR PATCH TRANSDERM STA (17:49)
[2016-12-27] MEDS ORDERED: cloNIDine HCL 0.1 MG TAB PO STA (18:40)
[2016-12-27] MEDS ORDERED: MORPHINE SULFATE 4 MG/ML SYRINGE IV PRN ×2 (18:59→20:39)
[2016-12-27] MEDS ORDERED: ONDANSETRON 4 MG/2 ML VIAL IVP PRN (18:59)
[2016-12-27] MEDS ORDERED: ACETAMINOPHEN TAB 325 MG TAB PO PRN (18:59)
[2016-12-27] MEDS ORDERED: KETOROLAC 30 MG/ML 1 ML VIAL IVP PRN (18:59)
[2016-12-27] MEDS ORDERED: NALOXONE 0.4 MG/ML 1 ML VIAL IV PRN (18:59)
[2016-12-27] MEDS ORDERED: IBUPROFEN 400 MG TAB PO PRN (18:59)
[2016-12-27] MEDS ORDERED: IPRATROPIUM-ALBUTEROL 3 ML NEB INHALATION PRN (19:04)
[2016-12-27] MEDS ORDERED: ALBUTEROL NEBULIZED 2.5 MG/3 ML INHALATION PRN (19:04)
--- NOTE | 2016-12-27 19:06 | ED ---
General Adult HPI - General Chief complaint: Psychiatric Symptoms Stated complaint: difficulty breathing Source: patient Mode of arrival: wheelchair Limitations: no limitations - History of Present Illness Initial comments: 51-year-old female with multiple visits to this department this year presenting for evaluation of chest pain and shortness of breath. She states that 2 days ago she was diagnosed with pneumonia by her primary care physician and started on doxycycline. She states she continues to have her symptoms with the chest pain described as a tightness worse with coughing. There is also associated dizziness cough but she denies any fever. Severity scale (1-10): 10 - Related Data Home Medications Medication Instructions Recorded Confirmed cloNIDine HCL 0.3 mg PO TID 02/11/16 12/27/16 Losartan Potassium [Cozaar] 100 mg PO DAILY 03/26/16 12/27/16 amLODIPine BESYLATE [Norvasc] 5 mg PO DAILY 05/13/16 12/27/16 Ipratropium-Albuterol Nebulize 3 ml INHALATION RT-Q6H PRN 11/13/16 12/27/16 [Duoneb 0.5 mg-3 mg/3 ml Soln] Cetirizine HCl 10 mg PO DAILY 11/22/16 12/27/16 HYDROcodone/APAP 7.5-325MG [[place] 1 tab PO BID 12/24/16 12/27/16 7.5-325] Albuterol Sulfate [Proair Hfa] 2 puff INHALATION RT-Q4H PRN 12/27/16 12/27/16 Prolixin(Unknown Dose) 1 dose IM MO 12/27/16 12/27/16 Previous Rx's Medication Instructions Recorded Doxycycline Hyclate [Vibramycin] 100 mg PO BID #20 cap 12/24/16 Allergies Allergy/AdvReac Type Severity Reaction Status Date / Time latex Allergy Rash/Hives Verified 12/27/16 21:37 levofloxacin [From Levaquin] Allergy Rash/Hives Verified 12/27/16 21:37 Penicillins Allergy Rash/Hives Verified 12/27/16 21:37 propoxyphene Allergy Unknown Verified 12/27/16 21:37 Quinolones Allergy Rash/Hives Verified 12/27/16 21:37 Sulfa (Sulfonamide Allergy Unknown Verified 12/27/16 21:37 Antibiotics) Iodinated Contrast Media - AdvReac Unknown Verified 12/27/16 21:37 Oral and Review of Systems ROS Statement: Those systems with pertinent positive or pertinent negative responses have been documented in the HPI. ROS Other: All systems not noted in ROS Statement are negative. Constitutional: Denies: fever, chills Eyes: Denies: eye pain, eye discharge, vision change ENT: Denies: ear pain, throat pain, dental pain, hearing loss Respiratory: Reports: cough, dyspnea. Denies: wheezes, hemoptysis Cardiovascular: Reports: chest pain, dyspnea on exertion. Denies: palpitations , orthopnea Endocrine: Reports: fatigue. Denies: polydipsia, polyuria Gastrointestinal: Denies: abdominal pain, nausea, vomiting, diarrhea, constipation, hematemesis Genitourinary: Denies: urgency, dysuria Musculoskeletal: Reports: back pain (Chronic). Denies: arthralgia, myalgia Skin: Denies: rash, lesions Neurological: Denies: headache, weakness Psychiatric: Reports: homicidal thoughts (A week or 2 ago but not currently), suicidal thoughts (A week or 2 ago but not currently). Denies: anxiety, depression Past Medical History Past Medical History: Hypertension, Respiratory Disorder, Sleep Apnea/CPAP/BIPAP Additional Past Medical History / Comment(s): head injury in the past History of Any Multi-Drug Resistant Organisms: None Reported Past Surgical History: Section, Uterine Ablation Additional Past Surgical History / Comment(s): eye surgery, lithotripsy Past Anesthesia/Blood Transfusion Reactions: No Reported Reaction Past Psychological History: Anxiety, Bipolar, Depression, Schizophrenia Smoking Status: Current every day smoker Past Alcohol Use History: None Reported Past Drug Use History: None Reported Additional Drug Use History / Comment(s): Pt's. UDS is positive for opiates and methamphetamines. - Past Family History Mother Family Medical History: Unable to Obtain Father Family Medical History: Unable to Obtain General Exam Limitations: no limitations General appearance: alert, in no apparent distress Head exam: Present: atraumatic, normocephalic, normal inspection Eye exam: Present: normal appearance, PERRL, EOMI. Absent: scleral icterus, conjunctival injection, periorbital swelling ENT exam: Present: normal exam, mucous membranes moist Neck exam: Present: normal inspection. Absent: tenderness, meningismus, lymphadenopathy Respiratory exam: Present: normal lung sounds bilaterally. Absent: respiratory distress, wheezes, rales, rhonchi, stridor Cardiovascular Exam: Present: regular rate, normal rhythm, normal heart sounds. Absent: systolic murmur, diastolic murmur, rubs, gallop, clicks GI/Abdominal exam: Present: soft, normal bowel sounds. Absent: distended, tenderness, guarding, rebound, rigid Rectal exam: Present: deferred Extremities exam: Present: normal inspection, full ROM, normal capillary refill. Absent: tenderness, pedal edema, joint swelling, calf tenderness Back exam: Present: normal inspection Neurological exam: Present: alert, oriented X3, CN II-XII intact Psychiatric exam: Present: flat affect Skin exam: Present: warm, dry, intact, normal color. Absent: rash Course Vital Signs 12/27/16 12/27/16 12/27/16 15:06 15:47 16:10 Temperature 98.2 F Pulse Rate 101 H Pulse Rate [ 96 92 Pulse Oximetery ] Respiratory 16 16 16 Rate Blood Pressure 182/101 Blood Pressure 171/87 170/81 [Right Arm] O2 Sat by Pulse 96 99 99 Oximetry 12/27/16 12/27/16 12/27/16 16:15 16:18 16:26 Temperature Pulse Rate 96 Pulse Rate [ 90 92 Pulse Oximetery ] Respiratory 16 Rate Blood Pressure Blood Pressure 172/88 172/88 [Right Arm] O2 Sat by Pulse 99 96 Oximetry 12/27/16 12/27/16 12/27/16 16:27 16:36 17:00 Temperature 98.3 F Pulse Rate 91 Pulse Rate [ 92 96 Pulse Oximetery ] Respiratory 16 Rate Blood Pressure Blood Pressure 162/83 166/86 [Right Arm] O2 Sat by Pulse 94 L 94 L Oximetry 12/27/16 12/27/16 12/27/16 17:15 17:30 17:45 Temperature 98.3 F Pulse Rate Pulse Rate [ 98 100 96 Pulse Oximetery ] Respiratory 16 Rate Blood Pressure Blood Pressure 187/97 188/86 164/75 [Right Arm] O2 Sat by Pulse 97 94 L 94 L Oximetry 12/27/16 12/27/16 12/27/16 18:00 18:38 19:15 Temperature 98.6 F 98.2 F Pulse Rate 99 Pulse Rate [ 100 100 Pulse Oximetery ] Respiratory 20 Rate Blood Pressure 168/100 Blood Pressure 185/95 163/111 [Right Arm] O2 Sat by Pulse 93 L 95 99 Oximetry 12/27/16 19:57 Temperature 98.1 F Pulse Rate 83 Pulse Rate [ Pulse Oximetery ] Respiratory 20 Rate Blood Pressure 158/72 Blood Pressure [Right Arm] O2 Sat by Pulse 99 Oximetry EKG Findings - EKG Comments: EKG Findings:: EKG shows normal sinus rhythm with possible left atrial enlargement. Ventricular rate 98, KOREY 178, QRS 90, QT/QTC 378/42. Medical Decision Making - Medical Decision Making 51-year-old female with past psych history presenting for evaluation of chest pain shortness of breath. Although she was recently diagnosed with pneumonia and treated with doxycycline she continues to have her symptoms. She further states that week or 2 ago she had suicidal homicidal thoughts but has none currently. On physical examination she has clear lung sounds bilaterally and there are no significant abnormalities on exam. Patient does have a flat affect however and continues to state that she is in pain and having difficulty breathing despite any outward indication. We'll obtain EKG, chest x-ray, labs and provide IV fluid and aspirin. Labs revealed no significant abnormalities checks x-ray shows no acute process including being negative for pneumonia. The patient was reevaluated and continued to have a flat affect without any change in her physical exam. She was informed of these results and through shared decision making it was determined that she would be admitted for further evaluation. The PA for Dr. Madison accepted the admission with request for consults with cardiology and psych. Admission order placed and bed request submitted. - Lab Data Result diagrams: 12/27/16 16:59 12/27/16 16:59 Lab Results 12/27/16 12/27/16 12/27/16 Range/Units 16:00 16:00 16:59 WBC 7.2 (3.8-10.6) k/uL RBC 5.74 H (3.80-5.40) m/uL Hgb 18.4 H (11.4-16.0) gm/dL Hct 54.9 H (34.0-46.0) % MCV 95.6 (80.0-100.0) fL MCH 32.0 (25.0-35.0) pg MCHC 33.5 (31.0-37.0) g/dL RDW 12.9 (11.5-15.5) % Plt Count 266 (150-450) k/uL Neutrophils % 56 % Lymphocytes % 35 % Monocytes % 5 % Eosinophils % 1 % Basophils % 1 % Neutrophils # 4.0 (1.3-7.7) k/uL Lymphocytes # 2.5 (1.0-4.8) k/uL Monocytes # 0.4 (0-1.0) k/uL Eosinophils # 0.0 (0-0.7) k/uL Basophils # 0.1 (0-0.2) k/uL PT (9.0-12.0) sec INR (<1.1) APTT (22.0-30.0) sec D-Dimer (<0.60) mg/L FEU Sodium (137-145) mmol/L Potassium (3.5-5.1) mmol/L Chloride (98-107) mmol/L Carbon Dioxide (22-30) mmol/L Anion Gap mmol/L BUN (7-17) mg/dL Creatinine (0.52-1.04) mg/dL Est GFR (MDRD) Af Amer (>60 ml/min/1.73 sqM) Est GFR (MDRD) Non-Af (>60 ml/min/1.73 sqM) Glucose (74-99) mg/dL Plasma Lactic Acid Armaan (0.7-2.0) mmol/L Calcium (8.4-10.2) mg/dL Total Bilirubin (0.2-1.3) mg/dL AST (14-36) U/L ALT (9-52) U/L Alkaline Phosphatase (38-126) U/L Troponin I (0.000-0.034) ng/mL NT-Pro-B Natriuret Pep pg/mL Total Protein (6.3-8.2) g/dL Albumin (3.5-5.0) g/dL Urine Color Yellow Urine Appearance Clear (Clear) Urine pH 5.5 (5.0-8.0) Ur Specific [place] 1.007 (1.001-1.035) Urine Protein Negative (Negative) Urine Glucose (UA) Negative (Negative) Urine Ketones Trace H (Negative) Urine Blood Small H (Negative) Urine Nitrite Negative (Negative) Urine Bilirubin Negative (Negative) Urine Urobilinogen <2.0 (<2.0) mg/dL Ur Leukocyte Esterase Negative (Negative) Urine RBC 5 (0-5) /hpf Urine WBC 1 (0-5) /hpf Ur Squamous Epith Cells 2 (0-4) /hpf Urine Mucus Rare H (None) /hpf Influenza Type A RNA Not Detected (Not Detectd) Influenza Type B (PCR) Not Detected (Not Detectd) 12/27/16 12/27/16 12/27/16 Range/Units 16:59 16:59 16:59 WBC (3.8-10.6) k/uL RBC (3.80-5.40) m/uL Hgb (11.4-16.0) gm/dL Hct (34.0-46.0) % MCV (80.0-100.0) fL MCH (25.0-35.0) pg MCHC (31.0-37.0) g/dL RDW (11.5-15.5) % Plt Count (150-450) k/uL Neutrophils % % Lymphocytes % % Monocytes % % Eosinophils % % Basophils % % Neutrophils # (1.3-7.7) k/uL Lymphocytes # (1.0-4.8) k/uL Monocytes # (0-1.0) k/uL Eosinophils # (0-0.7) k/uL Basophils # (0-0.2) k/uL PT 11.8 (9.0-12.0) sec INR 1.2 (<1.1) APTT 24.6 (22.0-30.0) sec D-Dimer (<0.60) mg/L FEU Sodium 141 (137-145) mmol/L Potassium 5.0 (3.5-5.1) mmol/L Chloride 107 (98-107) mmol/L Carbon Dioxide 24 (22-30) mmol/L Anion Gap 10 mmol/L BUN 9 (7-17) mg/dL Creatinine 0.61 (0.52-1.04) mg/dL Est GFR (MDRD) Af Amer >60 (>60 ml/min/1.73 sqM) Est GFR (MDRD) Non-Af >60 (>60 ml/min/1.73 sqM) Glucose 96 (74-99) mg/dL Plasma Lactic Acid [place] 1.0 (0.7-2.0) mmol/L Calcium 9.5 (8.4-10.2) mg/dL Total Bilirubin 1.0 (0.2-1.3) mg/dL AST 32 (14-36) U/L ALT 34 (9-52) U/L Alkaline Phosphatase 120 (38-126) U/L Troponin I (0.000-0.034) ng/mL NT-Pro-B Natriuret Pep pg/mL Total Protein 7.9 (6.3-8.2) g/dL Albumin 4.3 (3.5-5.0) g/dL Urine Color Urine Appearance (Clear) Urine pH (5.0-8.0) Ur Specific [place] (1.001-1.035) Urine Protein (Negative) Urine Glucose (UA) (Negative) Urine Ketones (Negative) Urine Blood (Negative) Urine Nitrite (Negative) Urine Bilirubin (Negative) Urine Urobilinogen (<2.0) mg/dL Ur Leukocyte Esterase (Negative) Urine RBC (0-5) /hpf Urine WBC (0-5) /hpf Ur Squamous Epith Cells (0-4) /hpf Urine Mucus (None) /hpf Influenza Type A RNA (Not Detectd) Influenza Type B (PCR) (Not Detectd) 12/27/16 12/27/16 12/27/16 Range/Units 16:59 16:59 16:59 WBC (3.8-10.6) k/uL RBC (3.80-5.40) m/uL Hgb (11.4-16.0) gm/dL Hct (34.0-46.0) % MCV (80.0-100.0) fL MCH (25.0-35.0) pg MCHC (31.0-37.0) g/dL RDW (11.5-15.5) % Plt Count (150-450) k/uL Neutrophils % % Lymphocytes % % Monocytes % % Eosinophils % % Basophils % % Neutrophils # (1.3-7.7) k/uL Lymphocytes # (1.0-4.8) k/uL Monocytes # (0-1.0) k/uL Eosinophils # (0-0.7) k/uL Basophils # (0-0.2) k/uL PT (9.0-12.0) sec INR (<1.1) APTT (22.0-30.0) sec D-Dimer 0.35 (<0.60) mg/L FEU Sodium (137-145) mmol/L Potassium (3.5-5.1) mmol/L Chloride (98-107) mmol/L Carbon Dioxide (22-30) mmol/L Anion Gap mmol/L BUN (7-17) mg/dL Creatinine (0.52-1.04) mg/dL Est GFR (MDRD) Af Amer (>60 ml/min/1.73 sqM) Est GFR (MDRD) Non-Af (>60 ml/min/1.73 sqM) Glucose (74-99) mg/dL Plasma Lactic Acid Armaan (0.7-2.0) mmol/L Calcium (8.4-10.2) mg/dL Total Bilirubin (0.2-1.3) mg/dL AST (14-36) U/L ALT (9-52) U/L Alkaline Phosphatase (38-126) U/L Troponin I <0.012 (0.000-0.034) ng/mL NT-Pro-B Natriuret Pep 81 pg/mL Total Protein (6.3-8.2) g/dL Albumin (3.5-5.0) g/dL Urine Color Urine Appearance (Clear) Urine pH (5.0-8.0) Ur Specific [place] (1.001-1.035) Urine Protein (Negative) Urine Glucose (UA) (Negative) Urine Ketones (Negative) Urine Blood (Negative) Urine Nitrite (Negative) Urine Bilirubin (Negative) Urine Urobilinogen (<2.0) mg/dL Ur Leukocyte Esterase (Negative) Urine RBC (0-5) /hpf Urine WBC (0-5) /hpf Ur Squamous Epith Cells (0-4) /hpf Urine Mucus (None) /hpf Influenza Type A RNA (Not Detectd) Influenza Type B (PCR) (Not Detectd) Disposition Clinical Impression: Chest pain, Shortness of breath, History of suicidal ideation Disposition: ADMITTED IP TO THIS [facility] Decision to Admit Reason: Admit from EC Decision Date: 12/27/16 Decision Time: 19:06
[2016-12-27] MEDS ORDERED: fluPHENAZine DECANOATE 25 MG/ML 5ML MDV IM SCH (19:15)
[2016-12-27] MEDS: SODIUM CHLORIDE 0.9% 1,000 ML IV SCH (19:28)
[2016-12-27] MEDS ORDERED: DOXYCYCLINE 50 MG CAP PO SCH (21:00)
[2016-12-27] MEDS ORDERED: MIRTAZAPINE 15 MG TAB PO SCH (21:00)
[2016-12-27 21:15] VITALS: RESP 16
[2016-12-27] MEDS: cloNIDine HCL 0.1 MG TAB PO SCH (21:26)
[2016-12-27] MEDS ORDERED: HYDROcodone/APAP 7.5-325MG 1 EACH TAB PO PRN (21:43)
[2016-12-27] MEDS ORDERED: LORazepam 2 MG/ML SYRINGE IV PRN (21:44)
[2016-12-28] MEDS: SODIUM CHLORIDE 0.9% 1,000 ML IV SCH (05:40)
[2016-12-28] MEDS: cloNIDine HCL 0.1 MG TAB PO SCH (06:05)
[2016-12-28 06:24] LABS: Basophils % (A) 1 %; CHCM 33.7; Eosinophils % (A) 0 %; HCT 52.5 % (34.0-46.0); HDW 2.32; HGB 17.7 gm/dL (11.4-16.0); Luc % (Auto) 2; Lymphocytes # (A) 1.5 k/uL (1.0-4.8); Lymphocytes % (A) 24 %; MCHC 33.7 g/dL (31.0-37.0); MCV 95.1 fL (80.0-100.0); Mean Platelet Volume 8.7; Monocytes # (A) 0.3 k/uL (0-1.0); Monocytes % (A) 4 %; Neutrophils # (A) 4.4 k/uL (1.3-7.7); Neutrophils % (A) 70 %; RBC 5.52 m/uL (3.80-5.40); RDW 12.8 % (11.5-15.5); WBC 6.3 k/uL (3.8-10.6); WBC (Perox) 6.54
[2016-12-28 06:52] LABS: Anion Gap 13 mmol/L; Blood Urea Nitrogen 12 mg/dL (7-17); Carbon Dioxide 20 mmol/L (22-30); Chloride 106 mmol/L (98-107); Glucose 117 mg/dL (74-99); Non-African American GFR(MDRD) >60 (>60 ml/min/1.73 sqM); Potassium 4.9 mmol/L (3.5-5.1); Sodium 139 mmol/L (137-145)
[2016-12-28 07:49] VITALS: BP 147/83; PULSE 83; TEMP 98.6
[2016-12-28] MEDS ORDERED: amLODIPine 5 MG TAB PO SCH (09:00)
[2016-12-28] MEDS ORDERED: LOSARTAN 50 MG TAB PO SCH (09:00)
--- NOTE | 2017-01-06 22:59 | HP ---
Patient was neither seen by me or recommended to me.
== END 2016-12-28 08:40 | disposition left against medical advice (07) ==
LOC: EC 14:45 → 3OBS 18:59
PROVIDERS: ADMIT Internal Medicine; ATTEND Internal Medicine
DX: R07.9 Chest pain, unspecified (principal); R06.02 Shortness of breath; R42 Dizziness and giddiness; R05 Cough; I10 Essential (primary) hypertension; G47.30 Sleep apnea, unspecified; F17.200 Nicotine dependence, unspecified, uncomplicated; Z99.89 Dependence on other enabling machines and devices; F20.9 Schizophrenia, unspecified; Z79.899 Other long term (current) drug therapy; Z79.891 Long term (current) use of opiate analgesic; Z88.5 Allergy status to narcotic agent; Z88.0 Allergy status to penicillin; Z88.2 Allergy status to sulfonamides; Z88.1 Allergy status to other antibiotic agents; Z91.041 Radiographic dye allergy status; Z91.040 Latex allergy status; Z87.828 Personal history of other (healed) physical injury and trauma
CPT/HCPCS: 99285; 96374; 96375 ×2; 96361 ×2; 36415; 94640; 93005; 85379; 83880; 80053; 80048; 83605; 84484 ×2; 85025 ×2; 85610; 85730; 81001; 87040; 87086; 87502; 71020; G0378 ×2; S4990; J2270; J2930; J3010; J1885

== ENCOUNTER 2017-01-09 11:15 | Emergency (ER) | payer MEDICARE, OTHER ==
--- NOTE | 2017-01-09 12:08 | ED ---
General Adult HPI - General Chief complaint: Chest Pain Stated complaint: CHEST PAIN, MARINA, LEFT SIDE NUMBNESS, PAIN NECK Time Seen by Provider: 01/09/17 11:45 Source: patient, RN notes reviewed Mode of arrival: wheelchair - History of Present Illness Initial comments: This is a 51-year-old female who presents to the emergency department complaining of chest pain with deep inspiration. Patient states it's sharp in nature and only occurs when she takes a deep breath. Patient states the pain does not radiate anywhere. Patient denies any diaphoresis. Patient denies any nausea. Patient denies any vomiting. Patient states she also complained of some pain in her left trapezius muscles motion when she palpates it. Patient states she woke up with that pain. Patient states that sharp chest pain is not related to exertion. Patient states she does not notice it getting worse with walking or moving. Patient denies any fever chills or cough. Patient states she thought she might be a little short of breath. Patient denies any abdominal pain patient denies any headache patient denies numbness weakness. Patient states she has a stress test scheduled for tomorrow. Patient states she continues to smoke. - Related Data Home Medications Medication Instructions Recorded Confirmed cloNIDine HCL 0.3 mg PO TID 02/11/16 01/09/17 Losartan Potassium [Cozaar] 100 mg PO DAILY 03/26/16 01/09/17 amLODIPine BESYLATE [Norvasc] 5 mg PO DAILY 05/13/16 01/09/17 Ipratropium-Albuterol Nebulize 3 ml INHALATION RT-Q6H PRN 11/13/16 01/09/17 [Duoneb 0.5 mg-3 mg/3 ml Soln] Cetirizine HCl 10 mg PO DAILY 11/22/16 01/09/17 HYDROcodone/APAP 7.5-325MG [[place] 1 tab PO BID 12/24/16 01/09/17 7.5-325] Albuterol Sulfate [Proair Hfa] 2 puff INHALATION RT-Q4H PRN 12/27/16 01/09/17 Prolixin(Unknown Dose) 1 dose IM MO 12/27/16 01/09/17 Previous Rx's Medication Instructions Recorded Doxycycline Hyclate [Vibramycin] 100 mg PO BID #20 cap 12/24/16 Allergies Allergy/AdvReac Type Severity Reaction Status Date / Time latex Allergy Rash/Hives Verified 01/09/17 12:11 levofloxacin [From Levaquin] Allergy Rash/Hives Verified 01/09/17 12:11 Penicillins Allergy Rash/Hives Verified 01/09/17 12:11 propoxyphene Allergy Unknown Verified 01/09/17 12:11 Quinolones Allergy Rash/Hives Verified 01/09/17 12:11 Sulfa (Sulfonamide Allergy Unknown Verified 01/09/17 12:11 Antibiotics) Iodinated Contrast Media - AdvReac Unknown Verified 01/09/17 12:11 Oral and Review of Systems ROS Statement: Those systems with pertinent positive or pertinent negative responses have been documented in the HPI. ROS Other: All systems not noted in ROS Statement are negative. Past Medical History Past Medical History: Hypertension, Respiratory Disorder, Sleep Apnea/CPAP/BIPAP Additional Past Medical History / Comment(s): head injury in the past History of Any Multi-Drug Resistant Organisms: None Reported Past Surgical History: Section, Uterine Ablation Additional Past Surgical History / Comment(s): eye surgery, lithotripsy, OVARIAN CYST REMOVED RIGHT SIDE Past Anesthesia/Blood Transfusion Reactions: No Reported Reaction Past Psychological History: Anxiety, Bipolar, Depression, Schizophrenia Additional Psychological History / Comment(s): pt only states that she has depression Smoking Status: Current every day smoker Past Alcohol Use History: None Reported Past Drug Use History: None Reported Additional Drug Use History / Comment(s): Pt's. UDS is positive for opiates and methamphetamines. - Past Family History Mother Family Medical History: Unable to Obtain Father Family Medical History: Unable to Obtain General Exam - General Exam Comments Initial Comments: GENERAL: Patient is well-developed and well-nourished. Patient is nontoxic and well- hydrated and is in no distress. ENT: Neck is soft and supple. No significant lymphadenopathy is noted. Oropharynx is clear. Moist mucous membranes. Tenderness to the left trapezius muscle EYES: The sclera were anicteric and conjunctiva were pink and moist. Extraocular movements were intact and pupils were equal round and reactive to light. Eyelids were unremarkable. PULMONARY: Unlabored respirations. Good breath sounds bilaterally. No audible rales rhonchi or wheezing was noted. CARDIOVASCULAR: There is a regular rate and rhythm without any murmurs gallops or rubs. ABDOMEN: Soft and nontender with normal bowel sounds. SKIN: Skin is clear with no lesions or rashes and otherwise unremarkable. NEUROLOGIC: Patient is alert and oriented x3. Cranial nerves II through XII are grossly intact. Motor and sensory are also intact. Normal speech, volume and content. Symmetrical smile. MUSCULOSKELETAL: Normal extremities with adequate strength and full range of motion. No lower extremity swelling or edema. No calf tenderness. LYMPHATICS: No significant lymphadenopathy is noted Course Vital Signs 01/09/17 01/09/17 01/09/17 11:43 12:15 13:48 Temperature 97.9 F 98.9 F 98 F Pulse Rate 91 85 80 Pulse Rate [ 85 Brim Ironer Hand ] Respiratory 18 20 16 Rate Blood Pressure 129/74 129/71 118/78 O2 Sat by Pulse 99 94 L 97 Oximetry Medical Decision Making - Medical Decision Making EKG shows a normal sinus rhythm at 86 bpm [place] interval is 184 QRS is 90 QT interval 384 QTC is 459. Patient's EKG shows no ST segment elevation or depression. Patient's EKG is unchanged from previous EKGs. Chest x-ray showed no acute abnormality. - Lab Data Result diagrams: 01/09/17 12:45 01/09/17 12:45 Lab Results 01/09/17 01/09/17 01/09/17 Range/Units 12:42 12:45 12:45 WBC 11.9 H (3.8-10.6) k/uL RBC 5.38 (3.80-5.40) m/uL Hgb 17.2 H (11.4-16.0) gm/dL Hct 52.4 H (34.0-46.0) % MCV 97.2 (80.0-100.0) fL MCH 31.9 (25.0-35.0) pg MCHC 32.8 (31.0-37.0) g/dL RDW 13.6 (11.5-15.5) % Plt Count 311 (150-450) k/uL Neutrophils % 54 % Lymphocytes % 36 % Monocytes % 6 % Eosinophils % 1 % Basophils % 1 % Neutrophils # 6.5 (1.3-7.7) k/uL Lymphocytes # 4.3 (1.0-4.8) k/uL Monocytes # 0.7 (0-1.0) k/uL Eosinophils # 0.1 (0-0.7) k/uL Basophils # 0.1 (0-0.2) k/uL Sodium 143 (137-145) mmol/L Potassium 4.8 (3.5-5.1) mmol/L Chloride 107 (98-107) mmol/L Carbon Dioxide 24 (22-30) mmol/L Anion Gap 12 mmol/L BUN 12 (7-17) mg/dL Creatinine 0.72 (0.52-1.04) mg/dL Est GFR (MDRD) Af Amer >60 (>60 ml/min/1.73 sqM) Est GFR (MDRD) Non-Af >60 (>60 ml/min/1.73 sqM) Glucose 64 L (74-99) mg/dL Calcium 10.0 (8.4-10.2) mg/dL Total Bilirubin 0.7 (0.2-1.3) mg/dL AST 23 (14-36) U/L ALT 33 (9-52) U/L Alkaline Phosphatase 106 (38-126) U/L Troponin I (0.000-0.034) ng/mL Total Protein 7.8 (6.3-8.2) g/dL Albumin 4.3 (3.5-5.0) g/dL Urine Opiates Screen Not Detected (NotDetected) Ur Oxycodone Screen Not Detected (NotDetected) Urine Methadone Screen Not Detected (NotDetected) Ur Propoxyphene Screen Not Detected (NotDetected) Ur Barbiturates Screen Not Detected (NotDetected) U Tricyclic Antidepress Not Detected (NotDetected) Ur Phencyclidine Scrn Not Detected (NotDetected) Ur Amphetamines Screen Not Detected (NotDetected) U Methamphetamines Scrn Not Detected (NotDetected) U Benzodiazepines Scrn Not Detected (NotDetected) Urine Cocaine Screen Not Detected (NotDetected) U Marijuana (THC) Screen Not Detected (NotDetected) 01/09/17 Range/Units 12:45 WBC (3.8-10.6) k/uL RBC (3.80-5.40) m/uL Hgb (11.4-16.0) gm/dL Hct (34.0-46.0) % MCV (80.0-100.0) fL MCH (25.0-35.0) pg MCHC (31.0-37.0) g/dL RDW (11.5-15.5) % Plt Count (150-450) k/uL Neutrophils % % Lymphocytes % % Monocytes % % Eosinophils % % Basophils % % Neutrophils # (1.3-7.7) k/uL Lymphocytes # (1.0-4.8) k/uL Monocytes # (0-1.0) k/uL Eosinophils # (0-0.7) k/uL Basophils # (0-0.2) k/uL Sodium (137-145) mmol/L Potassium (3.5-5.1) mmol/L Chloride (98-107) mmol/L Carbon Dioxide (22-30) mmol/L Anion Gap mmol/L BUN (7-17) mg/dL Creatinine (0.52-1.04) mg/dL Est GFR (MDRD) Af Amer (>60 ml/min/1.73 sqM) Est GFR (MDRD) Non-Af (>60 ml/min/1.73 sqM) Glucose (74-99) mg/dL Calcium (8.4-10.2) mg/dL Total Bilirubin (0.2-1.3) mg/dL AST (14-36) U/L ALT (9-52) U/L Alkaline Phosphatase (38-126) U/L Troponin I <0.012 (0.000-0.034) ng/mL Total Protein (6.3-8.2) g/dL Albumin (3.5-5.0) g/dL Urine Opiates Screen (NotDetected) Ur Oxycodone Screen (NotDetected) Urine Methadone Screen (NotDetected) Ur Propoxyphene Screen (NotDetected) Ur Barbiturates Screen (NotDetected) U Tricyclic Antidepress (NotDetected) Ur Phencyclidine Scrn (NotDetected) Ur Amphetamines Screen (NotDetected) U Methamphetamines Scrn (NotDetected) U Benzodiazepines Scrn (NotDetected) Urine Cocaine Screen (NotDetected) U Marijuana (THC) Screen (NotDetected) Disposition Clinical Impression: Pleuritic chest pain Disposition: HOME SELF-CARE Condition: Good Instructions: Pleurisy (ED) Referrals: Nico Parr MD [Primary Care Provider] - 1-2 days Time of Disposition: 14:09
[2017-01-09] MEDS ORDERED: KETOROLAC 60 MG/2 ML VIAL IM STA (12:10)
[2017-01-09 13:05] LABS: Basophils # (A) 0.1 k/uL (0-0.2); Basophils % (A) 1 %; CH 32.4; CHCM 33.5; Eosinophils # (A) 0.1 k/uL (0-0.7); Eosinophils % (A) 1 %; HCT 52.4 % (34.0-46.0); HDW 2.22; HGB 17.2 gm/dL (11.4-16.0); Luc # (Auto) 0.26; Luc % (Auto) 2; Lymphocytes # (A) 4.3 k/uL (1.0-4.8); Lymphocytes % (A) 36 %; MCH 31.9 pg (25.0-35.0); MCHC 32.8 g/dL (31.0-37.0); MCV 97.2 fL (80.0-100.0); Mean Platelet Volume 7.8; Monocytes # (A) 0.7 k/uL (0-1.0); Monocytes % (A) 6 %; Neutrophils # (A) 6.5 k/uL (1.3-7.7); Neutrophils % (A) 54 %; RBC 5.38 m/uL (3.80-5.40); RDW 13.6 % (11.5-15.5); WBC 11.9 k/uL (3.8-10.6); WBC (Perox) 11.18
[2017-01-09 13:14] LABS: Anion Gap 12 mmol/L; Carbon Dioxide 24 mmol/L (22-30); Chloride 107 mmol/L (98-107); Glucose 64 mg/dL (74-99); Non-African American GFR(MDRD) >60 (>60 ml/min/1.73 sqM); Sodium 143 mmol/L (137-145); Total Bilirubin 0.7 mg/dL (0.2-1.3); Total Protein 7.8 g/dL (6.3-8.2)
[2017-01-09 13:29] LABS: AST 23 U/L (14-36); Blood Urea Nitrogen 12 mg/dL (7-17); Potassium 4.8 mmol/L (3.5-5.1)
[2017-01-09 13:30] LABS: ALT 33 U/L (9-52); Alkaline Phosphatase 106 U/L (38-126)
[2017-01-09 14:44] VITALS: BP 164/82; PULSE 91; RESP 18; TEMP 97.9
== END 2017-01-09 14:44 | disposition home or self-care (01) ==
LOC: EC 11:15
DX: R07.89 Other chest pain (principal); I10 Essential (primary) hypertension; F17.200 Nicotine dependence, unspecified, uncomplicated; Z91.040 Latex allergy status; Z88.0 Allergy status to penicillin; Z88.1 Allergy status to other antibiotic agents; Z88.2 Allergy status to sulfonamides; Z91.041 Radiographic dye allergy status; Z88.8 Allergy status to other drugs, medicaments and biological substances; Z79.899 Other long term (current) drug therapy
CPT/HCPCS: 36415; 80053; 80306; 84484; 85025; 93005; 99285

== ENCOUNTER 2017-01-14 16:34 | Emergency (ER) | payer MEDICARE, OTHER ==
[2017-01-14 16:47] VITALS: RESP 18; TEMP 98.7
[2017-01-14] MEDS ORDERED: cloNIDine HCL 0.1 MG TAB PO STA (17:24)
--- NOTE | 2017-01-14 17:27 | ED ---
General Adult HPI - General Chief complaint: Chest Pain Stated complaint: MARINA Chest Pain Time Seen by Provider: 01/14/17 17:00 Source: patient, EMS, RN notes reviewed Mode of arrival: EMS Limitations: no limitations - History of Present Illness Initial comments: This is a 51-year-old female presents emergency department stating she is having chest pain when I asked her when the chest pain started she states his been ongoing for weeks. Patient states she's been seen in the emergency department before for the same. Patient states she also gets short of breath after she walked 3 blocks. Patient states she still smoking. Patient states currently lying in bed she has no shortness of breath. Patient states the chest pain is same sharp chest pain she has had for the last few weeks. Patient denies any recent fever chills or cough. Patient denies abdominal pain patient denies any nausea vomiting diarrhea. Patient denies any calf pain patient denies any leg swelling. Patient states she is due for a blood pressure med at 6:00 is a Catapres 0.3 mg she denies any headache patient denies numbness weakness patient denies lightheadedness dizziness or near syncopal episode. - Related Data Home Medications Medication Instructions Recorded Confirmed cloNIDine HCL 0.3 mg PO TID 02/11/16 01/14/17 Losartan Potassium [Cozaar] 100 mg PO DAILY 03/26/16 01/14/17 amLODIPine BESYLATE [Norvasc] 5 mg PO DAILY 05/13/16 01/14/17 Ipratropium-Albuterol Nebulize 3 ml INHALATION RT-Q6H PRN 11/13/16 01/14/17 [Duoneb 0.5 mg-3 mg/3 ml Soln] Cetirizine HCl 10 mg PO DAILY 11/22/16 01/14/17 HYDROcodone/APAP 7.5-325MG [[place] 1 tab PO BID 12/24/16 01/14/17 7.5-325] Albuterol Sulfate [Proair Hfa] 2 puff INHALATION RT-Q4H PRN 12/27/16 01/14/17 Prolixin(Unknown Dose) 1 dose IM MO 12/27/16 01/14/17 Previous Rx's Medication Instructions Recorded Doxycycline Hyclate [Vibramycin] 100 mg PO BID #20 cap 12/24/16 Allergies Allergy/AdvReac Type Severity Reaction Status Date / Time latex Allergy Rash/Hives Verified 01/14/17 17:03 levofloxacin [From Levaquin] Allergy Rash/Hives Verified 01/14/17 17:03 Penicillins Allergy Rash/Hives Verified 01/14/17 17:03 propoxyphene Allergy Unknown Verified 01/14/17 17:03 Quinolones Allergy Rash/Hives Verified 01/14/17 17:03 Sulfa (Sulfonamide Allergy Unknown Verified 01/14/17 17:03 Antibiotics) Iodinated Contrast Media - AdvReac Unknown Verified 01/14/17 17:03 Oral and Review of Systems ROS Statement: Those systems with pertinent positive or pertinent negative responses have been documented in the HPI. ROS Other: All systems not noted in ROS Statement are negative. Past Medical History Past Medical History: Hypertension, Respiratory Disorder, Sleep Apnea/CPAP/BIPAP Additional Past Medical History / Comment(s): head injury in the past History of Any Multi-Drug Resistant Organisms: None Reported Past Surgical History: Section, Uterine Ablation Additional Past Surgical History / Comment(s): eye surgery, lithotripsy, OVARIAN CYST REMOVED RIGHT SIDE Past Anesthesia/Blood Transfusion Reactions: No Reported Reaction Past Psychological History: Anxiety, Bipolar, Depression, Schizophrenia Additional Psychological History / Comment(s): pt only states that she has depression Smoking Status: Current every day smoker Past Alcohol Use History: None Reported Past Drug Use History: None Reported Additional Drug Use History / Comment(s): Pt's. UDS is positive for opiates and methamphetamines. - Past Family History Mother Family Medical History: Unable to Obtain Father Family Medical History: Unable to Obtain General Exam - General Exam Comments Initial Comments: GENERAL: Patient is well-developed and well-nourished. Patient is nontoxic and well- hydrated and is in no acute distress. Patient's pulse ox is 96-97% on room air ENT: Neck is soft and supple. No significant lymphadenopathy is noted. Oropharynx is clear. Moist mucous membranes. Neck has full range of motion without eliciting any pain. EYES: The sclera were anicteric and conjunctiva were pink and moist. Extraocular movements were intact and pupils were equal round and reactive to light. Eyelids were unremarkable. PULMONARY: Unlabored respirations. Good breath sounds bilaterally. No audible rales rhonchi or wheezing was noted. CARDIOVASCULAR: There is a regular rate and rhythm without any murmurs gallops or rubs. ABDOMEN: Soft and nontender with normal bowel sounds. No palpable organomegaly was noted. There is no palpable pulsatile mass. SKIN: Skin is clear with no lesions or rashes and otherwise unremarkable. NEUROLOGIC: Patient is alert and oriented x3. Cranial nerves II through XII are grossly intact. Motor and sensory are also intact. Normal speech, volume and content. Symmetrical smile. MUSCULOSKELETAL: Normal extremities with adequate strength and full range of motion. No lower extremity swelling or edema. No calf tenderness. LYMPHATICS: No significant lymphadenopathy is noted PSYCHIATRIC: Normal psychiatric evaluation. Limitations: no limitations Course Vital Signs 01/14/17 16:39 Temperature 98.7 F Pulse Rate 89 Respiratory 18 Rate Blood Pressure 184/116 O2 Sat by Pulse 96 Oximetry Medical Decision Making - Medical Decision Making patient states this pain is been constant since her last ER visit 5 days ago and it is a sharp pain which is worsened with movement. EKG shows a normal sinus rhythm at 84 bpm [place] interval 168 QRSs 84 QT interval 388 QTC is 458 patient's EKG shows no ST segment elevation or depression or T- wave abdomen is noted. I compared it to an old EKG and there is no acute changes. Disposition Clinical Impression: Hypertension, Angina pectoris Disposition: HOME SELF-CARE Condition: Good Instructions: Chest Pain (ED) Referrals: Nico Parr MD [Primary Care Provider] - 1-2 days
[2017-01-14 17:37] VITALS: BP 179/99; PULSE 82
== END 2017-01-14 17:40 | disposition home or self-care (01) ==
LOC: EC 16:34
DX: I10 Essential (primary) hypertension (principal); I20.9 Angina pectoris, unspecified; F20.9 Schizophrenia, unspecified; F17.200 Nicotine dependence, unspecified, uncomplicated; Z79.899 Other long term (current) drug therapy; Z88.0 Allergy status to penicillin; Z88.1 Allergy status to other antibiotic agents; Z88.2 Allergy status to sulfonamides; Z88.5 Allergy status to narcotic agent; Z91.040 Latex allergy status; Z91.041 Radiographic dye allergy status
CPT/HCPCS: 93005; 99285

== ENCOUNTER 2017-01-24 17:59 | Emergency (ER) | payer MEDICARE, OTHER ==
[2017-01-24] MEDS ORDERED: ASPIRIN 81 MG CHEW PO STA (18:08)
[2017-01-24] MEDS ORDERED: cloNIDine HCL 0.1 MG TAB PO STA (18:21)
--- NOTE | 2017-01-24 18:25 | ED ---
Chest Pain HPI - General Chief Complaint: Chest Pain Stated Complaint: MARINA, Chest pain Time Seen by Provider: 01/24/17 18:06 Source: patient, EMS, RN notes reviewed Mode of arrival: EMS Limitations: no limitations - History of Present Illness Initial Comments: This a 51-year-old female presents emergency Department chief complaint of chest pain, shortness breath. Patient states symptoms started earlier today. Patient was seen at [facility] just prior to coming here. She states that she had lab work, CT. Patient states that she was discharged and she called EMS. Patient states she continues to smoke. Patient has a history of hypertension in hyperlipidemia. Patient has been seen multiple times and had multiple cardiac workups which have been benign. Patient states she is scheduled for cardiac cath and [address] Mercado. Patient states that nothing seems to make the pain feel better or worse. Patient has not taken her Catapres as she normally would. - Related Data Home Medications Medication Instructions Recorded Confirmed cloNIDine HCL 0.3 mg PO TID 02/11/16 01/14/17 Losartan Potassium [Cozaar] 100 mg PO DAILY 03/26/16 01/14/17 amLODIPine BESYLATE [Norvasc] 5 mg PO DAILY 05/13/16 01/14/17 Ipratropium-Albuterol Nebulize 3 ml INHALATION RT-Q6H PRN 11/13/16 01/14/17 [Duoneb 0.5 mg-3 mg/3 ml Soln] Cetirizine HCl 10 mg PO DAILY 11/22/16 01/14/17 HYDROcodone/APAP 7.5-325MG [[place] 1 tab PO BID 12/24/16 01/14/17 7.5-325] Albuterol Sulfate [Proair Hfa] 2 puff INHALATION RT-Q4H PRN 12/27/16 01/14/17 Prolixin(Unknown Dose) 1 dose IM MO 12/27/16 01/14/17 Previous Rx's Medication Instructions Recorded Doxycycline Hyclate [Vibramycin] 100 mg PO BID #20 cap 12/24/16 Allergies Allergy/AdvReac Type Severity Reaction Status Date / Time latex Allergy Rash/Hives Verified 01/24/17 19:19 levofloxacin [From Levaquin] Allergy Rash/Hives Verified 01/24/17 19:19 Penicillins Allergy Rash/Hives Verified 01/24/17 19:19 propoxyphene Allergy Unknown Verified 01/24/17 19:19 Quinolones Allergy Rash/Hives Verified 01/24/17 19:19 Sulfa (Sulfonamide Allergy Rash/Hives Verified 01/24/17 19:19 Antibiotics) Iodinated Contrast Media - AdvReac Rash/Hives Verified 01/24/17 19:19 Oral and Review of Systems ROS Statement: Those systems with pertinent positive or pertinent negative responses have been documented in the HPI. ROS Other: All systems not noted in ROS Statement are negative. EKG Findings - EKG Comments: EKG Findings:: EKG performed at 18:13 normal sinus rhythm with rate of 95, LA interval 198, QRS duration 98, QT/QTC 364/457 Past Medical History Past Medical History: Hypertension, Respiratory Disorder, Sleep Apnea/CPAP/BIPAP Additional Past Medical History / Comment(s): head injury in the past History of Any Multi-Drug Resistant Organisms: None Reported Past Surgical History: Section, Uterine Ablation Additional Past Surgical History / Comment(s): eye surgery, lithotripsy, OVARIAN CYST REMOVED RIGHT SIDE Past Anesthesia/Blood Transfusion Reactions: No Reported Reaction Past Psychological History: Anxiety, Bipolar, Depression, Schizophrenia Additional Psychological History / Comment(s): pt only states that she has depression Smoking Status: Current every day smoker Past Alcohol Use History: None Reported Past Drug Use History: None Reported Additional Drug Use History / Comment(s): Pt's. UDS is positive for opiates and methamphetamines. - Past Family History Mother Family Medical History: Unable to Obtain Father Family Medical History: Unable to Obtain General Exam General appearance: alert, in no apparent distress Head exam: Present: atraumatic, normocephalic, normal inspection Eye exam: Present: normal appearance, PERRL, EOMI. Absent: scleral icterus, conjunctival injection, periorbital swelling ENT exam: Present: normal oropharynx Neck exam: Present: normal inspection. Absent: tenderness, meningismus, lymphadenopathy Respiratory exam: Present: normal lung sounds bilaterally. Absent: respiratory distress, wheezes, rales, rhonchi, stridor Cardiovascular Exam: Present: regular rate, normal rhythm, normal heart sounds. Absent: systolic murmur, diastolic murmur, rubs, gallop, clicks Neurological exam: Present: alert Skin exam: Present: warm, dry, intact, normal color. Absent: rash Course Vital Signs 01/24/17 01/24/17 01/24/17 18:01 18:54 19:02 Temperature 98.4 F Pulse Rate 96 96 91 Respiratory 18 Rate Blood Pressure 197/99 O2 Sat by Pulse 96 Oximetry Chest Pain MDM - MDM 51-year-old female presents emergency department for chest pain shortness of breath. Patient is well-known emergency Department sent multiple cardiac workups. Patient was at [facility] just prior arrival here. Patient had a workup including troponin, x-ray and CT of the chest which was negative for acute PE. Patient had a negative troponin. There is no EKG changes here and his negative troponin. Patient is scheduled for cardiac cath 3 days secondary to recurrent chest pain. Patient will be discharged at this time and advised to follow-up. Disposition Clinical Impression: Chest pain Disposition: HOME SELF-CARE Condition: Stable Instructions: Chest Pain (ED) Additional Instructions: Please return to the Emergency Department if symptoms worsen or any other concerns. Time of Disposition: 19:22
[2017-01-24 18:32] LABS: Basophils % (A) 0 %; CH 32.4; Eosinophils % (A) 0 %; HDW 2.25; HGB 18.2 gm/dL (11.4-16.0); Luc # (Auto) 0.04; Luc % (Auto) 0; Lymphocytes # (A) 0.7 k/uL (1.0-4.8); Lymphocytes % (A) 8 %; MCH 34.2 pg (25.0-35.0); MCHC 35.8 g/dL (31.0-37.0); MCV 95.5 fL (80.0-100.0); Mean Platelet Volume 7.7; Monocytes # (A) 0.1 k/uL (0-1.0); Monocytes % (A) 2 %; Neutrophils % (A) 89 %; RBC 5.34 m/uL (3.80-5.40); RDW 12.7 % (11.5-15.5); WBC (Perox) 8.88
[2017-01-24 18:36] VITALS: RESP 18
[2017-01-24] MEDS ORDERED: ALBUTEROL NEBULIZED 2.5 MG/3 ML INHALATION STA (18:38)
[2017-01-24] MEDS ORDERED: ACETAMINOPHEN TAB 500 MG TAB PO STA (18:38)
[2017-01-24 18:39] LABS: INR 1.3 (<1.1); Partial Thromboplastin Time 27.4 sec (22.0-30.0); Prothrombin Time 12.4 sec (9.0-12.0)
[2017-01-24 18:47] LABS: ALT 21 U/L (9-52); AST 24 U/L (14-36); Alkaline Phosphatase 100 U/L (38-126); Anion Gap 12 mmol/L; Blood Urea Nitrogen 12 mg/dL (7-17); Calcium 9.9 mg/dL (8.4-10.2); Carbon Dioxide 21 mmol/L (22-30); Chloride 108 mmol/L (98-107); Glucose 188 mg/dL (74-99); Magnesium 1.8 mg/dL (1.6-2.3); Non-African American GFR(MDRD) >60 (>60 ml/min/1.73 sqM); Potassium 4.2 mmol/L (3.5-5.1); Sodium 141 mmol/L (137-145); Total Bilirubin 0.6 mg/dL (0.2-1.3); Total Protein 7.9 g/dL (6.3-8.2)
[2017-01-24 18:53] LABS: Creatine Kinase 84 U/L (30-135)
[2017-01-24 19:06] LABS: Creatine Kinase MB 1.3 ng/mL (0.0-2.4); Troponin I <0.012 ng/mL (0.000-0.034)
[2017-01-24 19:23] VITALS: BP 158/95; PULSE 92; TEMP 97.9
== END 2017-01-24 19:38 | disposition home or self-care (01) ==
LOC: EC 17:59
DX: R07.9 Chest pain, unspecified (principal); R06.02 Shortness of breath; I10 Essential (primary) hypertension; F20.9 Schizophrenia, unspecified; F31.9 Bipolar disorder, unspecified; F41.9 Anxiety disorder, unspecified; F17.200 Nicotine dependence, unspecified, uncomplicated; Z79.899 Other long term (current) drug therapy; Z88.0 Allergy status to penicillin; Z88.1 Allergy status to other antibiotic agents; Z88.2 Allergy status to sulfonamides; Z91.041 Radiographic dye allergy status; Z91.040 Latex allergy status
CPT/HCPCS: 36415; 80053; 82550; 82553; 83735; 84484; 85025; 85610; 85730; 93005; 94640; 99285

== ENCOUNTER 2017-01-27 06:59 | Day surgery (SDC) | payer MEDICARE, OTHER ==
[2017-01-25 08:56] VITALS: BMI 42.7
[~2017-01-27 06:59] MED LIST: ALPRAZolam 0.25 MG TAB PO PRN; ASPIRIN 325 MG TAB PO ONE; SODIUM CHLORIDE 0.9% 1,000 ML in EMPTY BAG 1 BAG IV ONE
[2017-01-27 07:25] VITALS: RESP 18
[2017-01-27] MEDS ORDERED: MIDAZOLAM 2 MG/2 ML VIAL IVP ONE (08:18)
[2017-01-27] MEDS ORDERED: fentaNYL (PF) 50 MCG/ML 2 ML AMP IV ONE (08:26)
[2017-01-27] MEDS ORDERED: LIDOCAINE 2% INJ 20 MG/ML SQ ONE (08:30)
[2017-01-27] MEDS ORDERED: hydrALAZINE HCL 20 MG/ML 1 ML VIAL IVP ONE ×2 (08:31)
[2017-01-27] MEDS ORDERED: ENALAPRILAT 1.25 MG/ML 1 ML VIAL IVP ONE (08:31)
[2017-01-27] MEDS: VERAPAMIL SYRINGE (5 MG/10 ML) INTRAARTER ONE ×2 (08:35→08:43)
[2017-01-27] MEDS ORDERED: HEPARIN SODIUM 1,000 UNIT/ML VIAL IV ONE (08:36)
[2017-01-27] MEDS ORDERED: IODIXANOL 320 MG/ML 100 ML INTRAARTER ONE (08:43)
[2017-01-27] MEDS ORDERED: RX INFO: IV CONTRAST WAS GIVEN 1 EACH MISC MISCELLANE PRN (08:59)
[2017-01-27] MEDS ORDERED: SODIUM CHLORIDE 0.9% 1,000 ML IV SCH (09:00)
[2017-01-27] MEDS ORDERED: NICOTINE 14MG/24HR PATCH TRANSDERM STA (09:29)
[2017-01-27] MEDS ORDERED: cloNIDine HCL 0.1 MG TAB PO STA (10:10)
[2017-01-27 13:18] VITALS: BP 125/72; PULSE 75; TEMP 98.2
--- NOTE | 2017-01-27 14:31 | CC ---
DATE OF SERVICE: 01/27/2017 PERFORMING PHYSICIAN: Clay Chang MD, Configuration Consultant. PROCEDURE PERFORMED: 1. Selective right and left coronary angiogram. 2. Left heart catheterization. INDICATION: This is a pleasant 51-year-old female patient with hypertension and significant history of smoking who was experiencing recurrent chest discomfort consistent with angina. As a matter of fact, she had multiple ER visits with chest discomfort. APPROACH: Right radial artery. COMPLICATION: None. LEVEL OF SEDATION: Moderate with a sedation length of one-half hour. PROCEDURE DESCRIPTION: After obtaining informed consent, the patient was brought to the Cardiac Resource Manager Forester. The right radial artery was cannulated using micropuncture technique, the micropuncture wire passed easily, then I placed a 6 [place] sheath in the right radial artery. Subsequently, I did selective right and left coronary angiogram using JR4 and JL3.5 catheters. I did left heart catheterization using JR4 which flowed into the LV across the aortic valve and I did pullback after flushing the catheter. The procedure was completed without any complication. SELECTIVE CORONARY ANGIOGRAM: 1. Right coronary artery is a large-caliber vessel and it is a dominant vessel. It is angiographically normal. It bifurcates into PDA and PLV branches; both are angiographically normal. 2. The left main is angiographically normal. It bifurcates into the left circumflex and left anterior descending artery. 3. The left circumflex is a large-caliber vessel. The left circumflex is angiographically normal as well. 4. Left anterior descending artery: The proximal LAD is angiographically normally. The mid LAD is normal and gives rise into 2 diagonal branches; both are angiographically normally. The LAD distally is angiographically normal. HEMODYNAMICS: The left ventricle end-diastolic pressure was 24 mmHg and no gradient was identified across the aortic valve. CONCLUSION: 1. Normal coronary angiogram. 2. Elevated left ventricular and diastolic pressure. POSTPROCEDURE MANAGEMENT: 1. Maximize medical treatment. 2. Follow up with the patient. 3. ( ).
--- NOTE | 2017-01-27 16:52 | LTR ---
January 27, 2017 RE: Smooth Funk Dear Dr. aPrr: Mrs. Smooth Funk underwent a heart catheterization which showed normal coronaries. I want to thank you for allowing me to participate in her care. Sincerely, SABRA QUARLES MD
== END 2017-01-27 13:00 | disposition home or self-care (01) ==
LOC: CATHCVL 06:59
PROVIDERS: ATTEND Internal Medicine Interventional Cardiology
DX: R07.9 Chest pain, unspecified (principal); I10 Essential (primary) hypertension; F17.210 Nicotine dependence, cigarettes, uncomplicated; Z79.899 Other long term (current) drug therapy; Z88.1 Allergy status to other antibiotic agents; Z91.040 Latex allergy status; Z88.0 Allergy status to penicillin; Z88.2 Allergy status to sulfonamides; Z91.09 Other allergy status, other than to drugs and biological substances
CPT/HCPCS: 93458; 99152; 99153; C1894; S4990; J2001; J2250; J0360; Q9967; J3010; J1644

== ENCOUNTER 2017-02-08 13:50 | Emergency (ER) | payer MEDICARE, OTHER ==
[2017-02-08 14:01] VITALS: BP 159/88; PULSE 84; TEMP 97.5
[2017-02-08 14:03] VITALS: RESP 20
[2017-02-08] MEDS ORDERED: IPRATROPIUM-ALBUTEROL 3 ML NEB INHALATION STA (14:36)
--- NOTE | 2017-02-08 14:48 | ED ---
SOB HPI - General Chief Complaint: Shortness of Breath Stated Complaint: Difficulty Breathing Time Seen by Provider: 02/08/17 13:56 Source: patient Mode of arrival: EMS Limitations: no limitations - History of Present Illness MD Complaint: shortness of breath - Related Data Home Medications Medication Instructions Recorded Confirmed cloNIDine HCL 0.3 mg PO TID 02/11/16 02/08/17 Losartan Potassium [Cozaar] 100 mg PO DAILY 03/26/16 02/08/17 amLODIPine BESYLATE [Norvasc] 5 mg PO DAILY 05/13/16 02/08/17 Albuterol Sulfate [Proair Hfa] 3 puff INHALATION RT-Q4H PRN 12/27/16 02/08/17 fluPHENAZine DECANOATE [Prolixin 50 mg IM Q7D 02/08/17 02/08/17 Decanoate] Allergies Allergy/AdvReac Type Severity Reaction Status Date / Time iodine Allergy Rash/Hives Verified 02/08/17 14:17 latex Allergy Rash/Hives Verified 02/08/17 14:17 levofloxacin [From Levaquin] Allergy Rash/Hives Verified 02/08/17 14:17 Penicillins Allergy Rash/Hives Verified 02/08/17 14:17 propoxyphene Allergy Unknown Verified 02/08/17 14:17 Quinolones Allergy Rash/Hives Verified 02/08/17 14:17 Sulfa (Sulfonamide Allergy Rash/Hives Verified 02/08/17 14:17 Antibiotics) Iodinated Contrast Media - AdvReac Rash/Hives Verified 02/08/17 14:17 Oral and Review of Systems ROS Statement: Those systems with pertinent positive or pertinent negative responses have been documented in the HPI. ROS Other: All systems not noted in ROS Statement are negative. Past Medical History Past Medical History: Hypertension, Respiratory Disorder, Sleep Apnea/CPAP/BIPAP Additional Past Medical History / Comment(s): head injury in the past History of Any Multi-Drug Resistant Organisms: None Reported Past Surgical History: Section, Uterine Ablation Additional Past Surgical History / Comment(s): eye surgery, lithotripsy, OVARIAN CYST REMOVED RIGHT SIDE Past Anesthesia/Blood Transfusion Reactions: No Reported Reaction Past Psychological History: Anxiety, Bipolar, Depression, Schizophrenia Additional Psychological History / Comment(s): pt only states that she has depression Smoking Status: Current every day smoker Past Alcohol Use History: None Reported Past Drug Use History: None Reported Additional Drug Use History / Comment(s): Pt's. UDS is positive for opiates and methamphetamines. 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
== END 2017-02-08 14:51 | disposition left against medical advice (07) ==
LOC: EC 13:50
DX: R06.02 Shortness of breath (principal); I10 Essential (primary) hypertension; F17.200 Nicotine dependence, unspecified, uncomplicated; Z53.21 Procedure and treatment not carried out due to patient leaving prior to being seen by health care provider; Z88.0 Allergy status to penicillin; Z91.040 Latex allergy status; Z88.1 Allergy status to other antibiotic agents; Z91.048 Other nonmedicinal substance allergy status; Z91.041 Radiographic dye allergy status; Z88.2 Allergy status to sulfonamides; Z88.8 Allergy status to other drugs, medicaments and biological substances; Z79.899 Other long term (current) drug therapy
CPT/HCPCS: 93005; 99285

== ENCOUNTER 2017-02-12 13:16 | Emergency (ER) | payer MEDICARE, OTHER ==
[2017-02-12] MEDS ORDERED: NICOTINE 7MG/24HR PATCH TRANSDERM STA (14:06)
[2017-02-12] MEDS ORDERED: ASPIRIN 325 MG TAB PO STA (14:06)
[2017-02-12 14:23] LABS: Basophils # (A) 0.1 k/uL (0-0.2); Basophils % (A) 1 %; CH 32.5; CHCM 33.8; Eosinophils # (A) 0.2 k/uL (0-0.7); Eosinophils % (A) 2 %; HCT 51.2 % (34.0-46.0); HDW 2.09; HGB 16.8 gm/dL (11.4-16.0); Luc # (Auto) 0.13; Luc % (Auto) 2; Lymphocytes # (A) 2.1 k/uL (1.0-4.8); Lymphocytes % (A) 26 %; MCH 31.7 pg (25.0-35.0); MCHC 32.9 g/dL (31.0-37.0); MCV 96.5 fL (80.0-100.0); Mean Platelet Volume 7.2; Monocytes # (A) 0.5 k/uL (0-1.0); Monocytes % (A) 7 %; Neutrophils # (A) 5.2 k/uL (1.3-7.7); Neutrophils % (A) 64 %; RDW 13.3 % (11.5-15.5); WBC 8.3 k/uL (3.8-10.6); WBC (Perox) 7.87
[2017-02-12] MEDS ORDERED: IPRATROPIUM-ALBUTEROL 3 ML NEB INHALATION STA (14:26)
--- NOTE | 2017-02-12 14:27 | ED ---
SOB HPI - General Chief Complaint: Shortness of Breath Stated Complaint: MARINA Source: EMS Mode of arrival: EMS - History of Present Illness Initial Comments: 51-year-old female with past medical history of hypertension, respiratory disorder, sleep apnea, , uterine ablation, lithotripsy, presenting for evaluation of shortness of breath and chest discomfort that started today. She underwent a cardiac catheterization on 01/27/[address] Marin which revealed no significant abnormalities. She states she feels like she can't catch her breath. Tried her inhaler (ventolin) with no relief. States she doesn't know how to use her nebulizer that she's had for 2 months. Further states productive cough with subjective fevers. - Related Data Home Medications Medication Instructions Recorded Confirmed cloNIDine HCL 0.3 mg PO TID 02/11/16 02/12/17 Losartan Potassium [Cozaar] 100 mg PO DAILY 03/26/16 02/12/17 amLODIPine BESYLATE [Norvasc] 5 mg PO DAILY 05/13/16 02/12/17 Albuterol Sulfate [Proair Hfa] 3 puff INHALATION RT-Q4H PRN 12/27/16 02/12/17 fluPHENAZine DECANOATE [Prolixin 50 mg IM MO 02/08/17 02/12/17 Decanoate] Allergies Allergy/AdvReac Type Severity Reaction Status Date / Time iodine Allergy Rash/Hives Verified 02/12/17 14:13 latex Allergy Rash/Hives Verified 02/12/17 14:13 levofloxacin [From Levaquin] Allergy Rash/Hives Verified 02/12/17 14:13 Penicillins Allergy Rash/Hives Verified 02/12/17 14:13 propoxyphene Allergy Unknown Verified 02/12/17 14:13 Quinolones Allergy Rash/Hives Verified 02/12/17 14:13 Sulfa (Sulfonamide Allergy Rash/Hives Verified 02/12/17 14:13 Antibiotics) Iodinated Contrast Media - AdvReac Rash/Hives Verified 02/12/17 14:13 Oral and Review of Systems ROS Statement: Those systems with pertinent positive or pertinent negative responses have been documented in the HPI. ROS Other: All systems not noted in ROS Statement are negative. Constitutional: Denies: fever, chills Eyes: Denies: eye pain, eye discharge, vision change ENT: Denies: ear pain, throat pain Respiratory: Reports: cough, dyspnea, wheezes. Denies: hemoptysis, stridor Cardiovascular: Reports: chest pain. Denies: palpitations, dyspnea on exertion , orthopnea, edema Endocrine: Denies: fatigue, polydipsia, polyuria Gastrointestinal: Denies: abdominal pain, nausea, vomiting Genitourinary: Denies: urgency, dysuria Musculoskeletal: Denies: back pain, arthralgia, myalgia Skin: Denies: rash, lesions Neurological: Denies: headache, weakness Psychiatric: Denies: anxiety, depression Hematological/Lymphatic: Denies: easy bleeding, easy bruising Past Medical History Past Medical History: Hypertension, Respiratory Disorder, Sleep Apnea/CPAP/BIPAP Additional Past Medical History / Comment(s): head injury in the past History of Any Multi-Drug Resistant Organisms: None Reported Past Surgical History: Section, Uterine Ablation Additional Past Surgical History / Comment(s): eye surgery, lithotripsy, OVARIAN CYST REMOVED RIGHT SIDE Past Anesthesia/Blood Transfusion Reactions: No Reported Reaction Past Psychological History: Anxiety, Bipolar, Depression, Schizophrenia Additional Psychological History / Comment(s): pt only states that she has depression Smoking Status: Current every day smoker Past Alcohol Use History: None Reported Past Drug Use History: None Reported Additional Drug Use History / Comment(s): Pt's. UDS is positive for opiates and methamphetamines. - Past Family History Mother Family Medical History: Cancer Father Family Medical History: Unable to Obtain General Exam General appearance: alert, in no apparent distress Head exam: Present: atraumatic, normocephalic, normal inspection Eye exam: Present: normal appearance, PERRL, EOMI. Absent: scleral icterus, conjunctival injection, periorbital swelling ENT exam: Present: normal exam, mucous membranes moist Neck exam: Present: normal inspection. Absent: tenderness, meningismus, lymphadenopathy Respiratory exam: Present: normal lung sounds bilaterally. Absent: respiratory distress, wheezes, rales, rhonchi, stridor Cardiovascular Exam: Present: regular rate, normal rhythm, normal heart sounds. Absent: systolic murmur, diastolic murmur, rubs, gallop, clicks GI/Abdominal exam: Present: soft, normal bowel sounds. Absent: distended, tenderness, guarding, rebound, rigid Rectal exam: Present: deferred Extremities exam: Present: normal inspection, full ROM, normal capillary refill. Absent: tenderness, pedal edema, joint swelling, calf tenderness Back exam: Present: normal inspection Neurological exam: Present: alert, oriented X3, CN II-XII intact Psychiatric exam: Present: normal affect, normal mood Skin exam: Present: warm, dry, intact, normal color. Absent: rash Course Vital Signs 02/12/17 02/12/17 02/12/17 13:18 15:00 15:30 Temperature 98.1 F Pulse Rate 92 80 76 Respiratory 16 18 Rate Blood Pressure 168/89 164/85 O2 Sat by Pulse 98 100 Oximetry 02/12/17 15:40 Temperature Pulse Rate 80 Respiratory Rate Blood Pressure O2 Sat by Pulse Oximetry Medical Decision Making - Medical Decision Making 51-year-old female presented for evaluation of shortness of breath with chest discomfort and productive cough that started today. Patient has been seen here multiple times for similar symptoms. She recently had a cardiac catheterization on 01/27/2017 which showed normal coronary arteries. Physical examination revealed no significant abnormalities including lung sounds clear to auscultation bilaterally. The remainder of her physical exam is benign. We' ll obtain labs, EKG, chest x-ray, and provide aspirin, IV fluid, and breathing treatments. Labs revealed no significant abnormalities and chest x-ray shows no acute process. On reevaluation the patient had normal breath sounds that she was feeling much better. She was given a by mouth challenge in the department and ate 2 sandwiches and a couple drinks. Pt has a HEART score of 2 with a risk of MACE at 0.9-1.7% given her clean heart cath less than a month ago and normal labs will discharge with instructions to follow up with her PCP but to return to this facility if her symptoms should worsen or persist. The patient's status was updated to her legal guardian, Rachana Lugo and she was informed that the patient was requesting to have a Service called for her transport home. The legal guardian stated that she lives very close and that she would be able to walk home without any problems. The patient was discharged from the department and acknowledged an understanding of this information without further questions - Lab Data Result diagrams: 02/12/17 14:11 02/12/17 14:11 Lab Results 02/12/17 02/12/17 02/12/17 Range/Units 14:11 14:11 14:11 WBC 8.3 (3.8-10.6) k/uL RBC 5.30 (3.80-5.40) m/uL Hgb 16.8 H (11.4-16.0) gm/dL Hct 51.2 H (34.0-46.0) % MCV 96.5 (80.0-100.0) fL MCH 31.7 (25.0-35.0) pg MCHC 32.9 (31.0-37.0) g/dL RDW 13.3 (11.5-15.5) % Plt Count 292 (150-450) k/uL Neutrophils % 64 % Lymphocytes % 26 % Monocytes % 7 % Eosinophils % 2 % Basophils % 1 % Neutrophils # 5.2 (1.3-7.7) k/uL Lymphocytes # 2.1 (1.0-4.8) k/uL Monocytes # 0.5 (0-1.0) k/uL Eosinophils # 0.2 (0-0.7) k/uL Basophils # 0.1 (0-0.2) k/uL Sodium 141 (137-145) mmol/L Potassium 4.4 (3.5-5.1) mmol/L Chloride 107 (98-107) mmol/L Carbon Dioxide 24 (22-30) mmol/L Anion Gap 10 mmol/L BUN 15 (7-17) mg/dL Creatinine 0.80 (0.52-1.04) mg/dL Est GFR (MDRD) Af Amer >60 (>60 ml/min/1.73 sqM) Est GFR (MDRD) Non-Af >60 (>60 ml/min/1.73 sqM) Glucose 85 (74-99) mg/dL Calcium 10.1 (8.4-10.2) mg/dL Troponin I (0.000-0.034) ng/mL NT-Pro-B Natriuret Pep 55 pg/mL 02/12/17 Range/Units 14:11 WBC (3.8-10.6) k/uL RBC (3.80-5.40) m/uL Hgb (11.4-16.0) gm/dL Hct (34.0-46.0) % MCV (80.0-100.0) fL MCH (25.0-35.0) pg MCHC (31.0-37.0) g/dL RDW (11.5-15.5) % Plt Count (150-450) k/uL Neutrophils % % Lymphocytes % % Monocytes % % Eosinophils % % Basophils % % Neutrophils # (1.3-7.7) k/uL Lymphocytes # (1.0-4.8) k/uL Monocytes # (0-1.0) k/uL Eosinophils # (0-0.7) k/uL Basophils # (0-0.2) k/uL Sodium (137-145) mmol/L Potassium (3.5-5.1) mmol/L Chloride (98-107) mmol/L Carbon Dioxide (22-30) mmol/L Anion Gap mmol/L BUN (7-17) mg/dL Creatinine (0.52-1.04) mg/dL Est GFR (MDRD) Af Amer (>60 ml/min/1.73 sqM) Est GFR (MDRD) Non-Af (>60 ml/min/1.73 sqM) Glucose (74-99) mg/dL Calcium (8.4-10.2) mg/dL Troponin I <0.012 (0.000-0.034) ng/mL NT-Pro-B Natriuret Pep pg/mL 02/12/17 14:19 Normal sinus rhythm with a ventricular rate of 75, KOREY 192, QRS 88, QT/QTC 418/ 466. Disposition Clinical Impression: Shortness of breath, Chest pain Disposition: HOME SELF-CARE Condition: Stable Instructions: Dyspnea (ED), Chest Pain (ED) Time of Disposition: 15:48
--- NOTE | 2017-02-12 14:29 | XR ---
EXAMINATION TYPE: XR chest 2V DATE OF EXAM: 02/12/2017 2:25 PM COMPARISON: 12/27/2016 HISTORY: Short of breath TECHNIQUE: Frontal and lateral views of the chest are obtained. FINDINGS: Heart is top normal in size. There is no gross heart failure. Lungs are clear of consolida tion. There is no pleural effusion. There are no hilar masses. Bony thorax appears intact. IMPRESSION: Mild cardiomegaly. No acute lung disease. No change.
[2017-02-12 14:35] LABS: Anion Gap 10 mmol/L; Blood Urea Nitrogen 15 mg/dL (7-17); Calcium 10.1 mg/dL (8.4-10.2); Carbon Dioxide 24 mmol/L (22-30); Chloride 107 mmol/L (98-107); Glucose 85 mg/dL (74-99); Non-African American GFR(MDRD) >60 (>60 ml/min/1.73 sqM); Potassium 4.4 mmol/L (3.5-5.1); Sodium 141 mmol/L (137-145)
[2017-02-12 15:09] VITALS: RESP 18
[2017-02-12 16:02] VITALS: BP 187/105; PULSE 89; TEMP 98
== END 2017-02-12 16:03 | disposition home or self-care (01) ==
LOC: EC 13:16
DX: R06.02 Shortness of breath (principal); R07.89 Other chest pain; R05 Cough; R50.9 Fever, unspecified; I10 Essential (primary) hypertension; F20.9 Schizophrenia, unspecified; F31.9 Bipolar disorder, unspecified; F41.9 Anxiety disorder, unspecified; F17.200 Nicotine dependence, unspecified, uncomplicated; Z79.899 Other long term (current) drug therapy; Z91.040 Latex allergy status; Z88.0 Allergy status to penicillin; Z88.1 Allergy status to other antibiotic agents; Z88.2 Allergy status to sulfonamides; Z91.041 Radiographic dye allergy status; Z88.8 Allergy status to other drugs, medicaments and biological substances; Z95.818 Presence of other cardiac implants and grafts
CPT/HCPCS: 36415; 94640; 93005; 83880; 80048; 84484; 85025; 71020; 99285; S4990

== ENCOUNTER 2017-02-14 10:18 | Emergency (ER) | payer MEDICARE, OTHER ==
[2017-02-14 10:42] VITALS: RESP 16
--- NOTE | 2017-02-14 10:59 | ED ---
Psych HPI - General Chief Complaint: Psychiatric Symptoms Stated Complaint: Mental Health Time Seen by Provider: 02/14/17 10:47 Source: patient Mode of arrival: ambulatory - History of Present Illness Initial Comments: This 51-year-old white female presents complaining of being depressed. She states that it started this morning. She is having suicidal ideations. She has a plan of cutting her wrists or overdosing on her medications. She does relate a long-standing history of depression. She denies any hallucinations. She states that she has been diagnosed with schizophrenia in the past as well. She is currently on psychiatric medications. She has not had any attempts at suicide today. She feels as though she would benefit from further psychiatric admission. She only has 1 medical complaint of having some lumps under her right axillary region. She saw her primary doctor yesterday and was prescribed antibiotics. No other complaints or modifying factors. During the ER course she relates that she is feeling much improved. She states that she no longer has any suicidal ideations or plan. She feels much better. There is no signs of depression noted on examination. She feels well enough to be discharged home. - Related Data Home Medications Medication Instructions Recorded Confirmed cloNIDine HCL 0.3 mg PO TID 02/11/16 02/14/17 Losartan Potassium [Cozaar] 100 mg PO DAILY 03/26/16 02/14/17 amLODIPine BESYLATE [Norvasc] 5 mg PO DAILY 05/13/16 02/14/17 Albuterol Sulfate [Proair Hfa] 3 puff INHALATION RT-Q4H PRN 12/27/16 02/14/17 fluPHENAZine DECANOATE [Prolixin 50 mg IM MO 02/08/17 02/14/17 Decanoate] Minocycline HCl [Minocin] 100 mg PO BID 02/14/17 02/14/17 Triamcinolone 0.1% Cream [Kenalog] 1 applicatio TOPICAL BID 02/14/17 02/14/17 Allergies Allergy/AdvReac Type Severity Reaction Status Date / Time iodine Allergy Rash/Hives Verified 02/14/17 11:37 latex Allergy Rash/Hives Verified 02/14/17 11:37 levofloxacin [From Levaquin] Allergy Rash/Hives Verified 02/14/17 11:37 Penicillins Allergy Rash/Hives Verified 02/14/17 11:37 propoxyphene Allergy Unknown Verified 02/14/17 11:37 Quinolones Allergy Rash/Hives Verified 02/14/17 11:37 Sulfa (Sulfonamide Allergy Rash/Hives Verified 02/14/17 11:37 Antibiotics) Iodinated Contrast Media - AdvReac Rash/Hives Verified 02/14/17 11:37 Oral and Review of Systems ROS Statement: Those systems with pertinent positive or pertinent negative responses have been documented in the HPI. ROS Other: All systems not noted in ROS Statement are negative. Past Medical History Past Medical History: Hypertension, Respiratory Disorder, Sleep Apnea/CPAP/BIPAP Additional Past Medical History / Comment(s): head injury in the past History of Any Multi-Drug Resistant Organisms: None Reported Past Surgical History: Section, Uterine Ablation Additional Past Surgical History / Comment(s): eye surgery, lithotripsy, OVARIAN CYST REMOVED RIGHT SIDE Past Anesthesia/Blood Transfusion Reactions: No Reported Reaction Past Psychological History: Anxiety, Bipolar, Depression, Schizophrenia Additional Psychological History / Comment(s): pt only states that she has depression Smoking Status: Current every day smoker Past Alcohol Use History: None Reported Past Drug Use History: None Reported Additional Drug Use History / Comment(s): Pt's. UDS is positive for opiates and methamphetamines. - Past Family History Mother Family Medical History: Cancer Father Family Medical History: Unable to Obtain General Exam - General Exam Comments Initial Comments: GENERAL: The patient is well nourished and well hydrated. VITAL SIGNS: Heart rate, blood pressure, respiratory rate reviewed as recorded in nurse's notes. EYES: Pupils are round and reactive. Extraocular movements are intact. No conjunctival / lid redness or swelling. ENT: No external evidence of injury, swelling, or ecchymosis. Airway is patent. Throat is clear. NECK: Nontender. No swelling or evidence of injury. No subcutaneous emphysema. Trachea is midline. No thyroid mass. HEART: Regular rate and rhythm. Good peripheral pulses. LUNGS/CHEST: Breath sounds clear and equal bilaterally. No rales, rhonchi, or wheezes. No ecchymosis, subcutaneous emphysema, or tenderness. ABDOMEN: Abdomen soft without tenderness. No palpable masses or organomegaly. No peritoneal signs. No abdominal wall swelling or ecchymosis. EXTREMITIES: No extremity tenderness. Normal muscle tone and function. No thoracolumbar tenderness. NEUROLOGIC: Sensation is grossly intact. Cranial nerve exam reveals face is symmetrical, tongue is midline, speech is clear. SKIN: There is minimal areas of erythema and slight swelling under the right axillary region. No induration or masses noted. PSYCHIATRIC: Alert and oriented. No apparent psychiatric distress. Limitations: no limitations Course Vital Signs 02/14/17 10:39 Temperature 98.1 F Pulse Rate 82 Respiratory 16 Rate Blood Pressure 148/79 Medical Decision Making - Medical Decision Making The patient was seen and examined. All diagnostics were reviewed. It is felt as though the patient is medically cleared for further psychiatric evaluation. The psychiatric team did evaluate the patient. The apparently relate that she oftentimes will come in depressed but then feels much better. They wanted to watch her in the ER for some time. Sure enough, she does end up feeling much improved. She is apparently very well known to the psychiatric team. She is known by myself as she's been here before multiple times. It is felt as though she is stable for discharge home and leaves in no distress. She no longer has any suicidal ideations and denies any plan. This is apparently a fairly normal course. Return parameters are discussed and she leaves in no distress. - Lab Data Lab Results 02/14/17 Range/Units 11:13 Urine Opiates Screen Not Detected (NotDetected) Ur Oxycodone Screen Not Detected (NotDetected) Urine Methadone Screen Not Detected (NotDetected) Ur Propoxyphene Screen Not Detected (NotDetected) Ur Barbiturates Screen Not Detected (NotDetected) U Tricyclic Antidepress Not Detected (NotDetected) Ur Phencyclidine Scrn Not Detected (NotDetected) Ur Amphetamines Screen Not Detected (NotDetected) U Methamphetamines Scrn Not Detected (NotDetected) U Benzodiazepines Scrn Not Detected (NotDetected) Urine Cocaine Screen Not Detected (NotDetected) U Marijuana (THC) Screen Not Detected (NotDetected) Disposition Clinical Impression: Depressed Disposition: HOME SELF-CARE Condition: Good Instructions: Depression (ED) Referrals: Nico Parr MD [Primary Care Provider] - 1-2 days Time of Disposition: 16:02
[2017-02-14] MEDS ORDERED: cloNIDine HCL 0.1 MG TAB PO STA (12:34)
[2017-02-14] MEDS ORDERED: NICOTINE 21MG/24HR PATCH TRANSDERM STA (12:35)
[2017-02-14 16:18] VITALS: BP 140/70; PULSE 78; TEMP 98
== END 2017-02-14 16:17 | disposition home or self-care (01) ==
LOC: EC 10:18
DX: F31.9 Bipolar disorder, unspecified (principal); R22.31 Localized swelling, mass and lump, right upper limb; I10 Essential (primary) hypertension; F20.9 Schizophrenia, unspecified; F41.9 Anxiety disorder, unspecified; F17.200 Nicotine dependence, unspecified, uncomplicated; Z79.899 Other long term (current) drug therapy; Z88.1 Allergy status to other antibiotic agents; Z88.2 Allergy status to sulfonamides; Z88.0 Allergy status to penicillin; Z91.041 Radiographic dye allergy status; Z88.8 Allergy status to other drugs, medicaments and biological substances; Z91.040 Latex allergy status
CPT/HCPCS: 82075; 80306; 99284; S4990

== ENCOUNTER 2017-02-16 12:19 | Emergency (ER) | payer MEDICARE, OTHER ==
[2017-02-16] MEDS ORDERED: NICOTINE 21MG/24HR PATCH TRANSDERM STA (12:59)
[2017-02-16 14:03] LABS: Basophils # (A) 0.1 k/uL (0-0.2); Basophils % (A) 1 %; CH 32.8; CHCM 34.8; Eosinophils # (A) 0.1 k/uL (0-0.7); Eosinophils % (A) 1 %; HCT 45.9 % (34.0-46.0); HDW 2.17; Luc # (Auto) 0.11; Luc % (Auto) 1; Lymphocytes % (A) 21 %; MCH 33.1 pg (25.0-35.0); MCHC 34.9 g/dL (31.0-37.0); MCV 94.6 fL (80.0-100.0); Mean Platelet Volume 7.7; Monocytes # (A) 0.6 k/uL (0-1.0); Monocytes % (A) 6 %; Neutrophils # (A) 6.8 k/uL (1.3-7.7); Neutrophils % (A) 70 %; RBC 4.85 m/uL (3.80-5.40); RDW 12.9 % (11.5-15.5); WBC 9.7 k/uL (3.8-10.6); WBC (Perox) 8.64
[2017-02-16 14:19] LABS: Acetaminophen <10.0 ug/mL; Alcohol <10 mg/dL; Anion Gap 10 mmol/L; Blood Urea Nitrogen 15 mg/dL (7-17); Calcium 9.5 mg/dL (8.4-10.2); Carbon Dioxide 24 mmol/L (22-30); Chloride 107 mmol/L (98-107); Glucose 107 mg/dL (74-99); Non-African American GFR(MDRD) >60 (>60 ml/min/1.73 sqM); Potassium 4.2 mmol/L (3.5-5.1); Salicylate <1.0 mg/dL; Sodium 141 mmol/L (137-145)
--- NOTE | 2017-02-16 15:39 | XR ---
EXAMINATION TYPE: XR chest 1V portable DATE OF EXAM: 02/16/2017 3:26 PM COMPARISON: Chest x-ray from 4 days ago. HISTORY: History of COPD presents with shortness of breath TECHNIQUE: Single AP portable frontal upright view of the chest is obtained. FINDINGS: There is no focal air space opacity, pleural effusion, or pneumothorax seen. Perhaps mild central vascular congestion on prior study is improved. The cardiac silhouette size is stable and mil dly enlarged. The osseous structures are intact. IMPRESSION: Mild cardiomegaly without acute pulmonary.
--- NOTE | 2017-02-16 16:00 | ED ---
General Adult HPI - General Chief complaint: Shortness of Breath Stated complaint: MARINA Source: EMS Mode of arrival: EMS Limitations: no limitations - History of Present Illness Initial comments: 51-year-old female presented for evaluation of shortness of breath. She states that she has been seen multiple times in the last week for shortness of breath but states this is different saying it is "more severe". She states that there is associated chest pain intermittently and she feels as though she can't take a deep breath. Upon further questioning about her shortness of breath and trying to differentiate how it is different than the other 3 visits in the last week she became frustrated and then stated that she was feeling suicidal. Further questioning reveals that she has also visited outside hospitals for similar type symptoms. - Related Data Home Medications Medication Instructions Recorded Confirmed cloNIDine HCL 0.3 mg PO TID 02/11/16 02/16/17 Losartan Potassium [Cozaar] 100 mg PO DAILY 03/26/16 02/16/17 amLODIPine BESYLATE [Norvasc] 5 mg PO DAILY 05/13/16 02/16/17 Albuterol Sulfate [Proair Hfa] 3 puff INHALATION RT-Q4H PRN 12/27/16 02/16/17 fluPHENAZine DECANOATE [Prolixin 50 mg IM MO 02/08/17 02/16/17 Decanoate] Minocycline HCl [Minocin] 100 mg PO BID 02/14/17 02/16/17 Triamcinolone 0.1% Cream [Kenalog] 1 applicatio TOPICAL BID 02/14/17 02/16/17 Allergies Allergy/AdvReac Type Severity Reaction Status Date / Time iodine Allergy Rash/Hives Verified 02/16/17 12:45 latex Allergy Rash/Hives Verified 02/16/17 12:45 levofloxacin [From Levaquin] Allergy Rash/Hives Verified 02/16/17 12:45 Penicillins Allergy Rash/Hives Verified 02/16/17 12:45 propoxyphene Allergy Unknown Verified 02/16/17 12:45 Quinolones Allergy Rash/Hives Verified 02/16/17 12:45 Sulfa (Sulfonamide Allergy Rash/Hives Verified 02/16/17 12:45 Antibiotics) Iodinated Contrast Media - AdvReac Rash/Hives Verified 02/16/17 12:45 Oral and Review of Systems ROS Statement: Those systems with pertinent positive or pertinent negative responses have been documented in the HPI. ROS Other: All systems not noted in ROS Statement are negative. Constitutional: Denies: fever, chills Eyes: Denies: eye pain, eye discharge, vision change ENT: Denies: ear pain, throat pain, dental pain, hearing loss Respiratory: Reports: dyspnea, wheezes. Denies: cough, hemoptysis, stridor Cardiovascular: Reports: chest pain. Denies: palpitations, dyspnea on exertion , orthopnea Endocrine: Denies: fatigue, polydipsia, polyuria Gastrointestinal: Denies: abdominal pain, nausea, vomiting, diarrhea, constipation, hematemesis, melena Genitourinary: Denies: urgency, dysuria Musculoskeletal: Denies: back pain, arthralgia, myalgia Skin: Denies: rash, lesions Neurological: Denies: headache, weakness Psychiatric: Denies: anxiety, depression Hematological/Lymphatic: Denies: easy bleeding, easy bruising Past Medical History Past Medical History: Hypertension, Respiratory Disorder, Sleep Apnea/CPAP/BIPAP Additional Past Medical History / Comment(s): head injury in the past History of Any Multi-Drug Resistant Organisms: None Reported Past Surgical History: Section, Uterine Ablation Additional Past Surgical History / Comment(s): eye surgery, lithotripsy, OVARIAN CYST REMOVED RIGHT SIDE Past Anesthesia/Blood Transfusion Reactions: No Reported Reaction Past Psychological History: Anxiety, Bipolar, Depression, Schizophrenia Additional Psychological History / Comment(s): pt only states that she has depression Smoking Status: Current every day smoker Past Alcohol Use History: None Reported Past Drug Use History: None Reported Additional Drug Use History / Comment(s): Pt's. UDS is positive for opiates and methamphetamines. - Past Family History Mother Family Medical History: Cancer Father Family Medical History: Unable to Obtain General Exam Limitations: no limitations General appearance: alert, in no apparent distress Head exam: Present: atraumatic, normocephalic, normal inspection Eye exam: Present: normal appearance, PERRL, EOMI. Absent: scleral icterus, conjunctival injection, periorbital swelling ENT exam: Present: normal exam, mucous membranes moist Neck exam: Present: normal inspection. Absent: tenderness, meningismus, lymphadenopathy Respiratory exam: Present: normal lung sounds bilaterally. Absent: respiratory distress, wheezes, rales, rhonchi, stridor Cardiovascular Exam: Present: regular rate, normal rhythm, normal heart sounds. Absent: systolic murmur, diastolic murmur, rubs, gallop, clicks GI/Abdominal exam: Present: soft, normal bowel sounds. Absent: distended, tenderness, guarding, rebound, rigid Rectal exam: Present: deferred Extremities exam: Present: normal inspection, full ROM, normal capillary refill. Absent: tenderness, pedal edema, joint swelling, calf tenderness Back exam: Present: normal inspection Neurological exam: Present: alert, oriented X3, CN II-XII intact Psychiatric exam: Present: flat affect. Absent: depressed, agitated, manic, homicidal ideation Skin exam: Present: warm, dry, intact, normal color. Absent: rash Course Vital Signs 02/16/17 02/16/17 12:20 16:07 Temperature 99.4 F 98.0 F Pulse Rate 86 77 Respiratory 16 18 Rate Blood Pressure 140/67 163/81 O2 Sat by Pulse 96 99 Oximetry Medical Decision Making - Medical Decision Making 51-year-old female with recent history of recurrent visits to this ED as well as outside hospitals presented for evaluation of shortness of breath and suicidal ideations. The threats of suicidal ideations only started after further investigation into her respiratory symptoms during which she became frustrated and stated that she was feeling suicidal. She has been seen by psych multiple times at this facility and has also had recurrent workups for cardiac and respiratory issues all of which have been negative. On physical examination she has normal vital signs and is in no apparent distress. Lungs are clear to auscultation bilaterally and cardiac exam is benign. Abdomen is soft and nontender without peritoneal signs of guarding, rigidity, or rebound. Labs were submitted for medical clearance and pH evaluation. All labs were resulted and then pH came to see her and they recommended from a psych standpoint that she be discharged with instructions to follow-up with her primary care physician. The patient was informed of all these results and that should be discharged and agreed with this plan of care. She was further advised to return to this facility if her symptoms should worsen or persist. - Lab Data Result diagrams: 02/16/17 13:48 02/16/17 13:48 Lab Results 02/16/17 02/16/17 02/16/17 Range/Units 12:44 13:48 13:48 WBC 9.7 (3.8-10.6) k/uL RBC 4.85 (3.80-5.40) m/uL Hgb 16.0 (11.4-16.0) gm/dL Hct 45.9 (34.0-46.0) % MCV 94.6 (80.0-100.0) fL MCH 33.1 (25.0-35.0) pg MCHC 34.9 (31.0-37.0) g/dL RDW 12.9 (11.5-15.5) % Plt Count 275 (150-450) k/uL Neutrophils % 70 % Lymphocytes % 21 % Monocytes % 6 % Eosinophils % 1 % Basophils % 1 % Neutrophils # 6.8 (1.3-7.7) k/uL Lymphocytes # 2.0 (1.0-4.8) k/uL Monocytes # 0.6 (0-1.0) k/uL Eosinophils # 0.1 (0-0.7) k/uL Basophils # 0.1 (0-0.2) k/uL Sodium 141 (137-145) mmol/L Potassium 4.2 (3.5-5.1) mmol/L Chloride 107 (98-107) mmol/L Carbon Dioxide 24 (22-30) mmol/L Anion Gap 10 mmol/L BUN 15 (7-17) mg/dL Creatinine 0.68 (0.52-1.04) mg/dL Est GFR (MDRD) Af Amer >60 (>60 ml/min/1.73 sqM) Est GFR (MDRD) Non-Af >60 (>60 ml/min/1.73 sqM) Glucose 107 H (74-99) mg/dL Calcium 9.5 (8.4-10.2) mg/dL Salicylates <1.0 mg/dL Urine Opiates Screen Not Detected (NotDetected) Ur Oxycodone Screen Not Detected (NotDetected) Urine Methadone Screen Not Detected (NotDetected) Ur Propoxyphene Screen Not Detected (NotDetected) Acetaminophen <10.0 ug/mL Ur Barbiturates Screen Not Detected (NotDetected) U Tricyclic Antidepress Not Detected (NotDetected) Ur Phencyclidine Scrn Not Detected (NotDetected) Ur Amphetamines Screen Not Detected (NotDetected) U Methamphetamines Scrn Not Detected (NotDetected) U Benzodiazepines Scrn Not Detected (NotDetected) Urine Cocaine Screen Not Detected (NotDetected) U Marijuana (THC) Screen Not Detected (NotDetected) Serum Alcohol <10 mg/dL Disposition Clinical Impression: Shortness of breath Disposition: HOME SELF-CARE Condition: Stable Instructions: Dyspnea (ED) Referrals: Nico Parr MD [Primary Care Provider] - 1-2 days Time of Disposition: 16:00
[2017-02-16 16:08] VITALS: BP 163/81; PULSE 77; RESP 18; TEMP 98
== END 2017-02-16 16:08 | disposition home or self-care (01) ==
LOC: EC 12:19
DX: R06.02 Shortness of breath (principal); R07.9 Chest pain, unspecified; R45.851 Suicidal ideations; I11.9 Hypertensive heart disease without heart failure; F17.200 Nicotine dependence, unspecified, uncomplicated; Z88.0 Allergy status to penicillin; Z88.1 Allergy status to other antibiotic agents; Z88.2 Allergy status to sulfonamides; Z88.8 Allergy status to other drugs, medicaments and biological substances; Z91.040 Latex allergy status; Z91.041 Radiographic dye allergy status; Z91.048 Other nonmedicinal substance allergy status; Z79.899 Other long term (current) drug therapy
CPT/HCPCS: 99285; 82075; 36415; 80048; 85025; 80306; 83520 ×2; 80320; 71010; S4990

== ENCOUNTER 2017-02-24 15:38 | Emergency (ER) | payer MEDICARE, OTHER ==
[2017-02-24 15:47] VITALS: BP 143/74; PULSE 92; RESP 18; TEMP 97.7
--- NOTE | 2017-02-24 16:09 | ED ---
General Adult HPI - General Chief complaint: Psychiatric Symptoms Stated complaint: Mental Health Time Seen by Provider: 02/24/17 15:56 Source: patient, police, RN notes reviewed, old records reviewed Mode of arrival: ambulatory Limitations: no limitations - History of Present Illness Initial comments: This is a 51-year-old female here for reduction of psychiatric illness. Patient coming in for evaluation of suicidal or homicidal thoughts, also asking for food. Patient is well-known to this facility for same, does have action plan. Patient still complains of just not feeling well, does feel unhappy, feel suicidal. Mainly hungry - Related Data Home Medications Medication Instructions Recorded Confirmed cloNIDine HCL 0.3 mg PO TID 02/11/16 02/24/17 Losartan Potassium [Cozaar] 100 mg PO DAILY 03/26/16 02/24/17 amLODIPine BESYLATE [Norvasc] 5 mg PO DAILY 05/13/16 02/24/17 Albuterol Sulfate [Proair Hfa] 1 - 2 puff INHALATION RT-Q4H PRN 12/27/16 fluPHENAZine DECANOATE [Prolixin 50 mg IM MO 02/08/17 02/24/17 Decanoate] Minocycline HCl [Minocin] 100 mg PO BID 02/14/17 02/24/17 Triamcinolone 0.1% Cream [Kenalog] 1 applic TOPICAL BID 02/14/17 02/24/17 Isosorbide Mononitrate ER [Imdur] 30 mg PO QAM 02/24/17 02/24/17 Nicotine 21Mg/24Hr Patch [Habitrol 1 patch TRANSDERM DAILY 02/24/17 02/24/17 21Mg/24Hr Patch] Allergies Allergy/AdvReac Type Severity Reaction Status Date / Time Iodinated Contrast Media - Allergy Rash/Hives Verified 02/24/17 16:26 Oral and latex Allergy Rash/Hives Verified 02/24/17 16:26 Penicillins Allergy Rash/Hives Verified 02/24/17 16:26 propoxyphene Allergy Unknown Verified 02/24/17 16:26 Quinolones Allergy Rash/Hives Verified 02/24/17 16:26 Sulfa (Sulfonamide Allergy Rash/Hives Verified 02/24/17 16:26 Antibiotics) Review of Systems ROS Statement: Those systems with pertinent positive or pertinent negative responses have been documented in the HPI. ROS Other: All systems not noted in ROS Statement are negative. Past Medical History Past Medical History: Hypertension, Respiratory Disorder, Sleep Apnea/CPAP/BIPAP Additional Past Medical History / Comment(s): head injury in the past History of Any Multi-Drug Resistant Organisms: None Reported Past Surgical History: Section, Uterine Ablation Additional Past Surgical History / Comment(s): eye surgery, lithotripsy, OVARIAN CYST REMOVED RIGHT SIDE Past Anesthesia/Blood Transfusion Reactions: No Reported Reaction Past Psychological History: Anxiety, Bipolar, Depression, Schizophrenia Additional Psychological History / Comment(s): pt only states that she has depression Smoking Status: Current every day smoker Past Alcohol Use History: None Reported Past Drug Use History: None Reported Additional Drug Use History / Comment(s): Pt's. UDS is positive for opiates and methamphetamines. - Past Family History Mother Family Medical History: Cancer Father Family Medical History: Unable to Obtain General Exam Limitations: no limitations General appearance: alert, in no apparent distress Head exam: Present: atraumatic, normocephalic, normal inspection Eye exam: Present: normal appearance, PERRL, EOMI. Absent: scleral icterus, conjunctival injection, periorbital swelling ENT exam: Present: normal exam, mucous membranes moist Neck exam: Present: normal inspection. Absent: tenderness, meningismus, lymphadenopathy Respiratory exam: Present: normal lung sounds bilaterally. Absent: respiratory distress, wheezes, rales, rhonchi, stridor Cardiovascular Exam: Present: regular rate, normal rhythm, normal heart sounds. Absent: systolic murmur, diastolic murmur, rubs, gallop, clicks GI/Abdominal exam: Present: soft, normal bowel sounds. Absent: distended, tenderness, guarding, rebound, rigid Extremities exam: Present: normal inspection, full ROM, normal capillary refill. Absent: tenderness, pedal edema, joint swelling, calf tenderness Back exam: Present: normal inspection Neurological exam: Present: alert, oriented X3, CN II-XII intact Psychiatric exam: Present: normal affect, normal mood Skin exam: Present: warm, dry, intact, normal color. Absent: rash Course Vital Signs 02/24/17 15:43 Temperature 97.7 F Pulse Rate 92 Respiratory 18 Rate Blood Pressure 143/74 O2 Sat by Pulse 96 Oximetry - Reevaluation(s) Reevaluation #1: 02/24/17 17:33 Medically clear for psychiatric evaluation Medical Decision Making - Medical Decision Making 51-year-old female seen and evaluated with psychiatry, patient can be discharged home - Lab Data Lab Results 02/24/17 Range/Units 18:30 Urine Opiates Screen Not Detected (NotDetected) Ur Oxycodone Screen Not Detected (NotDetected) Urine Methadone Screen Not Detected (NotDetected) Ur Propoxyphene Screen Not Detected (NotDetected) Ur Barbiturates Screen Not Detected (NotDetected) U Tricyclic Antidepress Not Detected (NotDetected) Ur Phencyclidine Scrn Not Detected (NotDetected) Ur Amphetamines Screen Not Detected (NotDetected) U Methamphetamines Scrn Not Detected (NotDetected) U Benzodiazepines Scrn Not Detected (NotDetected) Urine Cocaine Screen Detected H (NotDetected) U Marijuana (THC) Screen Not Detected (NotDetected) Disposition Clinical Impression: Psychosis, Depression, Schizo affective schizophrenia Disposition: HOME SELF-CARE Condition: Good Instructions: Mood Disorders (ED) Referrals: Nico Parr MD [Primary Care Provider] - 1-2 days
[2017-02-24] MEDS ORDERED: cloNIDine HCL 0.1 MG TAB PO STA (17:40)
[2017-02-24] MEDS ORDERED: NICOTINE 21MG/24HR PATCH TRANSDERM STA (17:41)
== END 2017-02-24 20:36 | disposition home or self-care (01) ==
LOC: EC 15:38
DX: F32.3 Major depressive disorder, single episode, severe with psychotic features (principal); F25.9 Schizoaffective disorder, unspecified; I10 Essential (primary) hypertension; F17.200 Nicotine dependence, unspecified, uncomplicated; Z88.0 Allergy status to penicillin; Z88.2 Allergy status to sulfonamides; Z88.1 Allergy status to other antibiotic agents; Z91.040 Latex allergy status; Z91.041 Radiographic dye allergy status; Z79.899 Other long term (current) drug therapy
CPT/HCPCS: 99285; 82075; 80306; S4990

== ENCOUNTER 2017-03-13 11:01 | Emergency (ER) | payer MEDICARE, OTHER ==
[2017-03-13] MEDS ORDERED: IPRATROPIUM-ALBUTEROL 3 ML NEB INHALATION STA (12:29)
--- NOTE | 2017-03-13 12:37 | ED ---
General Adult HPI - General Chief complaint: Shortness of Breath Stated complaint: Diff breathing, mental health Time Seen by Provider: 03/13/17 12:25 Source: patient, RN notes reviewed, old records reviewed Mode of arrival: ambulatory Limitations: no limitations - History of Present Illness Initial comments: Patient's a 51-year-old female who presents emergency room today with chief complaint of feeling suicidal. She states that she is thought about taking all her medications at home or cutting her wrists. Patient also admits that she feels short of breath. She states shortness of breath is same that she's had in the past. She states breathing treatments to help but she does not have them at home. She denies any other complaints or symptoms at this time. Patient denies any recent fever, chills, chest pain, back pain, abdominal pain, nausea or vomiting, numbness or tingling, dysuria or hematuria, constipation or diarrhea, headaches or visual changes, or any other complaints. - Related Data Home Medications Medication Instructions Recorded Confirmed cloNIDine HCL 0.3 mg PO TID 02/11/16 03/13/17 Losartan Potassium [Cozaar] 100 mg PO DAILY 03/26/16 03/13/17 amLODIPine BESYLATE [Norvasc] 5 mg PO DAILY 05/13/16 03/13/17 Albuterol Sulfate [Proair Hfa] 1 - 2 puff INHALATION RT-Q4H PRN 12/27/16 fluPHENAZine DECANOATE [Prolixin 50 mg IM MO 02/08/17 03/13/17 Decanoate] Minocycline HCl [Minocin] 100 mg PO BID 02/14/17 03/13/17 Triamcinolone 0.1% Cream [Kenalog] 1 applic TOPICAL BID 02/14/17 03/13/17 Isosorbide Mononitrate ER [Imdur] 30 mg PO QAM 02/24/17 03/13/17 Nicotine 21Mg/24Hr Patch [Habitrol 1 patch TRANSDERM DAILY 02/24/17 03/13/17 21Mg/24Hr Patch] Previous Rx's Medication Instructions Recorded Nystatin 100,000 Unit/gm Powd 1 applic TOPICAL TID 10 Days 03/13/17 [Mycostatin Powder] Allergies Allergy/AdvReac Type Severity Reaction Status Date / Time Iodinated Contrast Media - Allergy Rash/Hives Verified 03/13/17 13:06 Oral and latex Allergy Rash/Hives Verified 03/13/17 13:06 Penicillins Allergy Rash/Hives Verified 03/13/17 13:06 propoxyphene Allergy Unknown Verified 03/13/17 13:06 Quinolones Allergy Rash/Hives Verified 03/13/17 13:06 Sulfa (Sulfonamide Allergy Rash/Hives Verified 03/13/17 13:06 Antibiotics) Review of Systems ROS Statement: Those systems with pertinent positive or pertinent negative responses have been documented in the HPI. ROS Other: All systems not noted in ROS Statement are negative. Past Medical History Past Medical History: Hypertension, Respiratory Disorder, Sleep Apnea/CPAP/BIPAP Additional Past Medical History / Comment(s): head injury in the past History of Any Multi-Drug Resistant Organisms: None Reported Past Surgical History: Section, Uterine Ablation Additional Past Surgical History / Comment(s): eye surgery, lithotripsy, OVARIAN CYST REMOVED RIGHT SIDE Past Anesthesia/Blood Transfusion Reactions: No Reported Reaction Past Psychological History: Anxiety, Bipolar, Depression, Schizophrenia Additional Psychological History / Comment(s): pt only states that she has depression Smoking Status: Current every day smoker Past Alcohol Use History: None Reported Past Drug Use History: None Reported Additional Drug Use History / Comment(s): Pt's. UDS is positive for opiates and methamphetamines. - Past Family History Mother Family Medical History: Cancer Father Family Medical History: Unable to Obtain General Exam - General Exam Comments Initial Comments: General: The patient is awake and alert, in no distress, and does not appear acutely ill. Eye: Pupils are equal, round and reactive to light, extra-ocular movements are intact. No nystagmus. There is normal conjunctiva bilaterally. No signs of icterus. Ears, nose, mouth and throat: There are moist mucous membranes and no oral lesions. Neck: The neck is supple, there is no tenderness or JVD. Cardiovascular: There is a regular rate and rhythm. No murmur, rub or gallop is appreciated. Respiratory: Lungs are clear to auscultation, respirations are non-labored, breath sounds are equal. No wheezes, stridor, rales, or rhonchi Musculoskeletal: Normal ROM, no tenderness. Strength 5/5. Sensation intact. Pulses equal bilaterally 2+. Neurological: A&O x 3. CN II-XII intact, There are no obvious motor or sensory deficits. Coordination appears grossly intact. Speech is normal. Skin: Skin is warm and dry and no rashes or lesions are noted. Psychiatric: Cooperative. Limitations: no limitations Course Vital Signs 03/13/17 03/13/17 03/13/17 11:29 12:29 12:35 Temperature 98.1 F Pulse Rate 100 100 Respiratory 20 16 Rate Blood Pressure 143/73 O2 Sat by Pulse 98 Oximetry 03/13/17 03/13/17 03/13/17 12:44 13:34 14:52 Temperature 97.8 F Pulse Rate 108 H 97 92 Respiratory 18 Rate Blood Pressure 178/81 O2 Sat by Pulse 94 L 97 Oximetry Medical Decision Making - Medical Decision Making Patient's been seen here in the emergency room by mental health. They recommended the patient can follow up and be discharged home with [facility]. Patient does have active team in place. Patient does have rash underneath the breast bilaterally and into the groin consistent with infection. Will be treated. - Lab Data Lab Results 03/13/17 Range/Units 12:46 Urine Opiates Screen Not Detected (NotDetected) Ur Oxycodone Screen Not Detected (NotDetected) Urine Methadone Screen Not Detected (NotDetected) Ur Propoxyphene Screen Not Detected (NotDetected) Ur Barbiturates Screen Not Detected (NotDetected) U Tricyclic Antidepress Not Detected (NotDetected) Ur Phencyclidine Scrn Not Detected (NotDetected) Ur Amphetamines Screen Not Detected (NotDetected) U Methamphetamines Scrn Not Detected (NotDetected) U Benzodiazepines Scrn Not Detected (NotDetected) Urine Cocaine Screen Not Detected (NotDetected) U Marijuana (THC) Screen Not Detected (NotDetected) Disposition Clinical Impression: Mental health problem, Yeast infection Disposition: HOME SELF-CARE Condition: Stable Instructions: Skin Yeast Infection (ED) Additional Instructions: Please use medication as discussed. Please follow-up with the [facility] mental health as discussed here in the emergency room. Please follow-up with family doctor in the next 2 days of symptoms have not improved. Please return to emergency room if the symptoms increase or worsen or for any other concerns. Prescriptions: Nystatin 100,000 Unit/gm Powd [Mycostatin Powder] 1 applic TOPICAL TID 10 Days Referrals: Nico Parr MD [Primary Care Provider] - 1-2 days Time of Disposition: 14:59
[2017-03-13 14:53] VITALS: BP 178/81; PULSE 92; RESP 18; TEMP 97.8
== END 2017-03-13 15:07 | disposition home or self-care (01) ==
LOC: EC 11:01
DX: B37.2 Candidiasis of skin and nail (principal); F99 Mental disorder, not otherwise specified; R45.851 Suicidal ideations; R06.02 Shortness of breath; I10 Essential (primary) hypertension; F20.9 Schizophrenia, unspecified; F17.200 Nicotine dependence, unspecified, uncomplicated; Z79.899 Other long term (current) drug therapy; Z88.0 Allergy status to penicillin; Z88.1 Allergy status to other antibiotic agents; Z88.2 Allergy status to sulfonamides; Z88.5 Allergy status to narcotic agent; Z91.040 Latex allergy status; Z91.041 Radiographic dye allergy status
CPT/HCPCS: 80306; 82075; 94640; 99285

== ENCOUNTER 2017-03-19 14:17 | Emergency (ER) | payer MEDICARE, OTHER ==
[2017-03-19 14:31] VITALS: RESP 18
[2017-03-19] MEDS ORDERED: IPRATROPIUM-ALBUTEROL 3 ML NEB INHALATION STA (14:49)
--- NOTE | 2017-03-19 14:58 | ED ---
General Adult HPI - General Chief complaint: Chest Pain Stated complaint: chest pain Time Seen by Provider: 03/19/17 14:18 Source: patient, RN notes reviewed Mode of arrival: EMS Limitations: no limitations - History of Present Illness Initial comments: Patient is a pleasant 51-year-old female presenting to the emergency department with complaints of shortness of breath. Patient states source of breath is chronic for the past 6 months. Patient also has some sharp chest discomfort that is also been chronic over the past 6 months. Patient states she does not always have the discomfort however generally gets it at least a couple of times per week. Patient states the discomfort is mild. Patient states breathing is worse. Patient states breathing treatments usually helpful. Patient requests breathing treatment and to go home. - Related Data Home Medications Medication Instructions Recorded Confirmed cloNIDine HCL 0.3 mg PO TID 02/11/16 03/19/17 Losartan Potassium [Cozaar] 100 mg PO DAILY 03/26/16 03/19/17 amLODIPine BESYLATE [Norvasc] 5 mg PO DAILY 05/13/16 03/19/17 Albuterol Sulfate [Proair Hfa] 1 - 2 puff INHALATION RT-Q4H PRN 12/27/16 fluPHENAZine DECANOATE [Prolixin 50 mg IM MO 02/08/17 03/19/17 Decanoate] Triamcinolone 0.1% Cream [Kenalog] 1 applic TOPICAL BID 02/14/17 03/19/17 Isosorbide Mononitrate ER [Imdur] 30 mg PO QAM 02/24/17 03/19/17 Nicotine 21Mg/24Hr Patch [Habitrol 1 patch TRANSDERM DAILY 02/24/17 03/19/17 21Mg/24Hr Patch] Previous Rx's Medication Instructions Recorded Nystatin 100,000 Unit/gm Powd 1 applic TOPICAL TID 10 Days 03/13/17 [Mycostatin Powder] Allergies Allergy/AdvReac Type Severity Reaction Status Date / Time Iodinated Contrast Media - Allergy Rash/Hives Verified 03/19/17 14:32 Oral and latex Allergy Rash/Hives Verified 03/19/17 14:32 Penicillins Allergy Rash/Hives Verified 03/19/17 14:32 propoxyphene Allergy Unknown Verified 03/19/17 14:32 Quinolones Allergy Rash/Hives Verified 03/19/17 14:32 Sulfa (Sulfonamide Allergy Rash/Hives Verified 03/19/17 14:32 Antibiotics) Review of Systems ROS Statement: Those systems with pertinent positive or pertinent negative responses have been documented in the HPI. ROS Other: All systems not noted in ROS Statement are negative. Constitutional: Denies: fever Eyes: Denies: eye pain ENT: Denies: ear pain Respiratory: Reports: dyspnea. Denies: cough Cardiovascular: Reports: chest pain Endocrine: Denies: fatigue Gastrointestinal: Denies: abdominal pain Genitourinary: Denies: urgency Musculoskeletal: Denies: back pain Skin: Denies: rash Neurological: Denies: weakness Past Medical History Past Medical History: Hypertension, Respiratory Disorder, Sleep Apnea/CPAP/BIPAP Additional Past Medical History / Comment(s): head injury in the past History of Any Multi-Drug Resistant Organisms: None Reported Past Surgical History: Section, Uterine Ablation Additional Past Surgical History / Comment(s): eye surgery, lithotripsy, OVARIAN CYST REMOVED RIGHT SIDE Past Anesthesia/Blood Transfusion Reactions: No Reported Reaction Past Psychological History: Anxiety, Bipolar, Depression, Schizophrenia Smoking Status: Current every day smoker Past Alcohol Use History: None Reported Past Drug Use History: None Reported - Past Family History Mother Family Medical History: Cancer Father Family Medical History: Unable to Obtain General Exam Limitations: no limitations General appearance: alert, in no apparent distress Head exam: Present: atraumatic Eye exam: Present: normal appearance, PERRL ENT exam: Present: normal oropharynx Neck exam: Present: normal inspection Respiratory exam: Present: normal lung sounds bilaterally, chest wall tenderness Cardiovascular Exam: Present: regular rate, normal rhythm GI/Abdominal exam: Present: soft. Absent: tenderness Extremities exam: Present: pedal edema. Absent: calf tenderness Neurological exam: Present: alert Psychiatric exam: Present: normal affect, normal mood Skin exam: Present: normal color Course Vital Signs 03/19/17 03/19/17 03/19/17 14:20 15:29 15:39 Temperature 97.4 F L Pulse Rate 81 64 65 Respiratory 18 Rate Blood Pressure 149/83 O2 Sat by Pulse 97 Oximetry EKG Findings - EKG Comments: EKG Findings:: Normal sinus rhythm 71. First-degree AV block with FL of 204. QRS 86. QT 420. QTc 456. Normal axis. Septal Q waves. No acute ST change. Medical Decision Making - Medical Decision Making Patient reevaluated and resting comfortably in bed without complaint. Patient updated on results and need for follow-up. Patient is comfortable with discharge home if she receives a prescription for a handheld inhaler. - Radiology Data Radiology results: image reviewed (Chest x-ray shows mild cardiomegaly and small posterior pleural effusion.) Disposition Clinical Impression: Chronic chest pain Disposition: HOME SELF-CARE Condition: Stable Instructions: Chest Pain (ED) Additional Instructions: Please follow-up tomorrow with Dr. Parr. Return for fevers, difficulty breathing, swelling, worsening symptoms or other concerns. Referrals: Nico Parr MD [Primary Care Provider] - 1-2 days Time of Disposition: 15:54
--- NOTE | 2017-03-19 15:37 | XR ---
EXAMINATION TYPE: XR chest 2V DATE OF EXAM: 03/19/2017 COMPARISON: 02/16/2017 INDICATION: Chest pain short of breath TECHNIQUE: Frontal and lateral views of the chest are obtained. FINDINGS: The heart size is mildly prominent. The pulmonary vasculature is normal. Small posterior pleural effusions are present.. IMPRESSION: 1. Mild cardiomegaly 2. Small posterior pleural effusions.
[2017-03-19 16:10] VITALS: BP 154/95; PULSE 74; TEMP 97.6
== END 2017-03-19 15:54 | disposition home or self-care (01) ==
LOC: EC 14:17
DX: R07.89 Other chest pain (principal); R06.02 Shortness of breath; I10 Essential (primary) hypertension; F31.9 Bipolar disorder, unspecified; F41.9 Anxiety disorder, unspecified; F20.9 Schizophrenia, unspecified; F17.200 Nicotine dependence, unspecified, uncomplicated; Z79.899 Other long term (current) drug therapy; Z91.041 Radiographic dye allergy status; Z91.040 Latex allergy status; Z88.2 Allergy status to sulfonamides; Z88.1 Allergy status to other antibiotic agents; Z88.8 Allergy status to other drugs, medicaments and biological substances
CPT/HCPCS: 71020; 93005; 94640; 99285

== ENCOUNTER 2017-03-25 20:29 | Emergency (ER) | payer MEDICARE, OTHER ==
[2017-03-25 20:40] VITALS: TEMP 97.8
--- NOTE | 2017-03-25 22:11 | ED ---
General Adult HPI - General Chief complaint: Chest Pain Stated complaint: Chest Pain Time Seen by Provider: 03/25/17 21:10 Source: patient, EMS, RN notes reviewed Mode of arrival: EMS Limitations: no limitations - History of Present Illness Initial comments: Patient is a pleasant 51-year-old female presenting to the emergency department complaining of chest pain and shortness of breath. Patient states this is a chronic problem that has been present over 6 or 8 months. Patient states symptoms actually resolved at this time. Patient did have recent negative cardiac catheterization. Patient admits to not taking her clonidine appropriately. Patient requests clonidine - Related Data Home Medications Medication Instructions Recorded Confirmed cloNIDine HCL 0.3 mg PO TID 02/11/16 03/25/17 Losartan Potassium [Cozaar] 100 mg PO DAILY 03/26/16 03/25/17 amLODIPine BESYLATE [Norvasc] 5 mg PO DAILY 05/13/16 03/25/17 Albuterol Sulfate [Proair Hfa] 1 - 2 puff INHALATION RT-Q4H PRN 12/27/16 fluPHENAZine DECANOATE [Prolixin 50 mg IM MO 02/08/17 03/25/17 Decanoate] Triamcinolone 0.1% Cream [Kenalog] 1 applic TOPICAL BID 02/14/17 03/25/17 Isosorbide Mononitrate ER [Imdur] 30 mg PO QAM 02/24/17 03/25/17 Nicotine 21Mg/24Hr Patch [Habitrol 1 patch TRANSDERM DAILY 02/24/17 03/25/17 21Mg/24Hr Patch] Previous Rx's Medication Instructions Recorded Nystatin 100,000 Unit/gm Powd 1 applic TOPICAL TID 10 Days 03/13/17 [Mycostatin Powder] Allergies Allergy/AdvReac Type Severity Reaction Status Date / Time Iodinated Contrast Media - Allergy Rash/Hives Verified 03/25/17 20:40 Oral and latex Allergy Rash/Hives Verified 03/25/17 20:40 Penicillins Allergy Rash/Hives Verified 03/25/17 20:40 propoxyphene Allergy Unknown Verified 03/25/17 20:40 Quinolones Allergy Rash/Hives Verified 03/25/17 20:40 Sulfa (Sulfonamide Allergy Rash/Hives Verified 03/25/17 20:40 Antibiotics) Review of Systems ROS Statement: Those systems with pertinent positive or pertinent negative responses have been documented in the HPI. ROS Other: All systems not noted in ROS Statement are negative. Constitutional: Denies: fever Eyes: Denies: eye pain ENT: Denies: ear pain Respiratory: Reports: dyspnea. Denies: cough Cardiovascular: Reports: chest pain Endocrine: Denies: fatigue Gastrointestinal: Denies: abdominal pain Genitourinary: Denies: urgency Musculoskeletal: Denies: back pain Skin: Denies: rash Neurological: Denies: weakness Past Medical History Past Medical History: Hypertension, Respiratory Disorder, Sleep Apnea/CPAP/BIPAP Additional Past Medical History / Comment(s): head injury in the past History of Any Multi-Drug Resistant Organisms: None Reported Past Surgical History: Section, Uterine Ablation Additional Past Surgical History / Comment(s): eye surgery, lithotripsy, OVARIAN CYST REMOVED RIGHT SIDE Past Anesthesia/Blood Transfusion Reactions: No Reported Reaction Past Psychological History: Anxiety, Bipolar, Depression, Schizophrenia Smoking Status: Current every day smoker Past Alcohol Use History: None Reported Past Drug Use History: None Reported - Past Family History Mother Family Medical History: Cancer Father Family Medical History: Unable to Obtain General Exam Limitations: no limitations General appearance: alert, in no apparent distress Head exam: Present: atraumatic Eye exam: Present: normal appearance, PERRL ENT exam: Present: normal oropharynx Neck exam: Present: normal inspection Respiratory exam: Present: normal lung sounds bilaterally. Absent: chest wall tenderness Cardiovascular Exam: Present: regular rate, normal rhythm GI/Abdominal exam: Present: soft. Absent: tenderness Extremities exam: Present: normal inspection Neurological exam: Present: alert Psychiatric exam: Present: flat affect Skin exam: Present: normal color Course Vital Signs 03/25/17 03/25/17 03/25/17 20:31 21:10 21:32 Temperature 97.8 F Pulse Rate 93 78 Respiratory 20 18 Rate Blood Pressure 162/76 151/92 O2 Sat by Pulse 96 98 99 Oximetry EKG Findings - EKG Comments: EKG Findings:: Sinus rhythm at 84. First-degree AV block with a NV of 214. QRS 88. QT 404. QTC 477. Normal axis. Septal Q waves. No acute ST change. Previous EKG reviewed. Medical Decision Making - Medical Decision Making Patient states she is symptom-free at this time and requests discharge home. Patient does not want further evaluation. Disposition Clinical Impression: Chronic chest pain Disposition: HOME SELF-CARE Condition: Stable Instructions: Chest Pain (ED) Additional Instructions: Please follow-up Monday with Dr. Parr. Return for change or worsening symptoms or other concerns. Referrals: Nico Parr MD [Primary Care Provider] - 1-2 days Time of Disposition: 22:11
[2017-03-25 22:27] VITALS: BP 152/90; PULSE 84; RESP 16
== END 2017-03-25 22:27 | disposition home or self-care (01) ==
LOC: EC 20:29
DX: I44.0 Atrioventricular block, first degree (principal); R07.9 Chest pain, unspecified; R06.02 Shortness of breath; I10 Essential (primary) hypertension; F20.9 Schizophrenia, unspecified; F17.200 Nicotine dependence, unspecified, uncomplicated; Z79.899 Other long term (current) drug therapy; Z88.0 Allergy status to penicillin; Z88.1 Allergy status to other antibiotic agents; Z88.2 Allergy status to sulfonamides; Z88.5 Allergy status to narcotic agent; Z91.040 Latex allergy status; Z91.041 Radiographic dye allergy status
CPT/HCPCS: 93005; 99285

== ENCOUNTER 2017-03-26 08:35 | Emergency (ER) | payer MEDICARE, OTHER ==
[2017-03-26 09:05] VITALS: BP 178/84; RESP 18; TEMP 98.9
[2017-03-26] MEDS ORDERED: IPRATROPIUM-ALBUTEROL 3 ML NEB INHALATION STA (09:10)
[2017-03-26] MEDS ORDERED: cloNIDine HCL 0.1 MG TAB PO STA (09:10)
--- NOTE | 2017-03-26 09:18 | ED ---
General Adult HPI - General Chief complaint: Recheck/Abnormal Lab/Rx Stated complaint: high blood pressure Time Seen by Provider: 03/26/17 08:35 Source: patient, EMS, RN notes reviewed, old records reviewed Mode of arrival: EMS - History of Present Illness Initial comments: Social 51-year-old female who was here complaining of being high blood pressure medication feeling well. This is her seventh visit to the emergency department in less than 2 weeks. This does not include visit to the other emergency departments in town. She comes in by EMS today stating she needs her medication refill. She did give a prescription yesterday at [facility] for her prescription. Patient does admit to smoking and has not quite yet. She does states she has some difficulty breathing no fevers chills nausea vomiting sweats no chest pain. - Related Data Home Medications Medication Instructions Recorded Confirmed cloNIDine HCL 0.3 mg PO TID 02/11/16 03/25/17 Losartan Potassium [Cozaar] 100 mg PO DAILY 03/26/16 03/25/17 amLODIPine BESYLATE [Norvasc] 5 mg PO DAILY 05/13/16 03/25/17 Albuterol Sulfate [Proair Hfa] 1 - 2 puff INHALATION RT-Q4H PRN 12/27/16 fluPHENAZine DECANOATE [Prolixin 50 mg IM MO 02/08/17 03/25/17 Decanoate] Triamcinolone 0.1% Cream [Kenalog] 1 applic TOPICAL BID 02/14/17 03/25/17 Isosorbide Mononitrate ER [Imdur] 30 mg PO QAM 02/24/17 03/25/17 Nicotine 21Mg/24Hr Patch [Habitrol 1 patch TRANSDERM DAILY 02/24/17 03/25/17 21Mg/24Hr Patch] Previous Rx's Medication Instructions Recorded Nystatin 100,000 Unit/gm Powd 1 applic TOPICAL TID 10 Days 03/13/17 [Mycostatin Powder] Allergies Allergy/AdvReac Type Severity Reaction Status Date / Time Iodinated Contrast Media - Allergy Rash/Hives Verified 03/25/17 20:40 Oral and latex Allergy Rash/Hives Verified 03/25/17 20:40 Penicillins Allergy Rash/Hives Verified 03/25/17 20:40 propoxyphene Allergy Unknown Verified 03/25/17 20:40 Quinolones Allergy Rash/Hives Verified 03/25/17 20:40 Sulfa (Sulfonamide Allergy Rash/Hives Verified 03/25/17 20:40 Antibiotics) Review of Systems ROS Statement: Those systems with pertinent positive or pertinent negative responses have been documented in the HPI. ROS Other: All systems not noted in ROS Statement are negative. Past Medical History Past Medical History: Hypertension, Respiratory Disorder, Sleep Apnea/CPAP/BIPAP Additional Past Medical History / Comment(s): head injury in the past History of Any Multi-Drug Resistant Organisms: None Reported Past Surgical History: Section, Uterine Ablation Additional Past Surgical History / Comment(s): eye surgery, lithotripsy, OVARIAN CYST REMOVED RIGHT SIDE Past Anesthesia/Blood Transfusion Reactions: No Reported Reaction Past Psychological History: Anxiety, Bipolar, Depression, Schizophrenia Smoking Status: Current every day smoker Past Alcohol Use History: None Reported Past Drug Use History: None Reported - Past Family History Mother Family Medical History: Cancer Father Family Medical History: Unable to Obtain General Exam - General Exam Comments Initial Comments: This is a well-developed well-nourished awake alert oriented x 3 female Limitations: no limitations General appearance: alert Head exam: Present: atraumatic, normocephalic, normal inspection Eye exam: Present: normal appearance, PERRL, EOMI. Absent: scleral icterus, conjunctival injection, periorbital swelling ENT exam: Present: normal exam, mucous membranes moist Neck exam: Present: normal inspection. Absent: tenderness, meningismus, lymphadenopathy Respiratory exam: Present: normal lung sounds bilaterally, decreased breath sounds (Social decreased breath sounds no wheezes no consolidations). Absent: respiratory distress, wheezes, rales, rhonchi, stridor Cardiovascular Exam: Present: regular rate, normal rhythm, normal heart sounds. Absent: systolic murmur, diastolic murmur, rubs, gallop, clicks GI/Abdominal exam: Present: soft, normal bowel sounds. Absent: distended, tenderness, guarding, rebound, rigid Extremities exam: Present: normal inspection, full ROM, normal capillary refill. Absent: tenderness, pedal edema, joint swelling, calf tenderness Back exam: Present: normal inspection Neurological exam: Present: alert, oriented X3, CN II-XII intact Psychiatric exam: Present: normal mood Skin exam: Present: warm, dry, intact, normal color. Absent: rash Course Vital Signs 03/26/17 09:00 Temperature 98.9 F Pulse Rate 104 H Respiratory 18 Rate Blood Pressure 178/84 O2 Sat by Pulse 95 Oximetry - Reevaluation(s) Reevaluation #1: 03/26/17 09:16 I did discuss the need for smoking cessation with the patient including risks and benefits. This lasted 3.1 minutes I also did also read very to need to follow-up with her doctor considered using the 911 system for nonemergency transport Medical Decision Making - Medical Decision Making The patient will get her morning dose of clonidine and a DuoNeb she will be discharged is a follow-up with her doctor return when necessary Disposition Clinical Impression: Bronchospasm, Hypertension, Noncompliance, Smoking Disposition: HOME SELF-CARE Condition: Good Instructions: Hypertension (ED), How to Stop Smoking (ED), Effects of Smoking, Alcohol, and Medicines on (ED), Bronchospasm (ED) Additional Instructions: Failure prescriptions filled and follow-up with your doctor tomorrow Referrals: Nico Parr MD [Primary Care Provider] - 1-2 days
[2017-03-26 09:32] VITALS: PULSE 118
== END 2017-03-26 09:35 | disposition home or self-care (01) ==
LOC: EC 08:35
DX: J98.01 Acute bronchospasm (principal); I10 Essential (primary) hypertension; F20.9 Schizophrenia, unspecified; F31.9 Bipolar disorder, unspecified; F41.9 Anxiety disorder, unspecified; F17.200 Nicotine dependence, unspecified, uncomplicated; Z79.899 Other long term (current) drug therapy; Z88.0 Allergy status to penicillin; Z88.2 Allergy status to sulfonamides; Z91.040 Latex allergy status; Z91.041 Radiographic dye allergy status; Z88.8 Allergy status to other drugs, medicaments and biological substances
CPT/HCPCS: 99284

== ENCOUNTER 2017-04-02 10:00 | Emergency (ER) | payer MEDICARE, OTHER ==
[2017-04-02] MEDS ORDERED: DIPH,PERTUS(ACELL)TETVAC-LF 0.5 ML VIAL IM ONE (10:12)
--- NOTE | 2017-04-02 10:20 | ED ---
General Adult HPI - General Stated complaint: Stewart Time Seen by Provider: 04/02/17 10:04 Source: EMS, RN notes reviewed Mode of arrival: EMS Limitations: no limitations - History of Present Illness Initial comments: 51-year-old female presents emergency room chief complaint of stewart to the left hand. Patient's dates that she burned her hand 2 days ago on the stove when she was cooking pizza. Patient states that she thought that they should be seen. Patient states that she hasn't had any bleeding but they are tender. Patient does not recall her last tetanus. Patient denies any fever chills with this and the redness surrounding the area. Patient states that she is not currently having any other complaints at this time. Patient states that she was concerned due to the stewart and she did not know how to care for them at home. Patient also does suffer from chronic shortness of breath and hypertension when she was also concerned about. Patient states is exactly like normal. Patient denies any chest pain at this time. Patient denies any recent fever, chills, chest pain, back pain, abdominal pain, nausea vomiting, numbness or tingling, dysuria or hematuria, constipation or diarrhea, headaches or visual changes, or any other current symptoms. - Related Data Home Medications Medication Instructions Recorded Confirmed cloNIDine HCL 0.3 mg PO TID 02/11/16 04/01/17 Losartan Potassium [Cozaar] 100 mg PO DAILY 03/26/16 04/01/17 amLODIPine BESYLATE [Norvasc] 5 mg PO DAILY 05/13/16 04/01/17 Albuterol Sulfate [Proair Hfa] 1 - 2 puff INHALATION RT-Q4H PRN 12/27/16 fluPHENAZine DECANOATE [Prolixin 50 mg IM MO 02/08/17 04/01/17 Decanoate] Isosorbide Mononitrate ER [Imdur] 30 mg PO QAM 02/24/17 03/25/17 Previous Rx's Medication Instructions Recorded Bacitracin Oint 1 applic TOPICAL TID #1 tube 04/02/17 Allergies Allergy/AdvReac Type Severity Reaction Status Date / Time Iodinated Contrast Media - Allergy Rash/Hives Verified 04/02/17 10:14 Oral and latex Allergy Rash/Hives Verified 04/02/17 10:14 Penicillins Allergy Rash/Hives Verified 04/02/17 10:14 propoxyphene Allergy Unknown Verified 04/02/17 10:14 Quinolones Allergy Rash/Hives Verified 04/02/17 10:14 Sulfa (Sulfonamide Allergy Rash/Hives Verified 04/02/17 10:14 Antibiotics) Review of Systems ROS Statement: Those systems with pertinent positive or pertinent negative responses have been documented in the HPI. ROS Other: All systems not noted in ROS Statement are negative. Past Medical History Past Medical History: Hypertension, Respiratory Disorder, Sleep Apnea/CPAP/BIPAP Additional Past Medical History / Comment(s): head injury in the past History of Any Multi-Drug Resistant Organisms: None Reported Past Surgical History: Section, Uterine Ablation Additional Past Surgical History / Comment(s): eye surgery, lithotripsy, OVARIAN CYST REMOVED RIGHT SIDE Past Anesthesia/Blood Transfusion Reactions: No Reported Reaction Past Psychological History: Anxiety, Bipolar, Depression, Schizophrenia Smoking Status: Current every day smoker Past Alcohol Use History: None Reported Past Drug Use History: None Reported - Past Family History Mother Family Medical History: Cancer Father Family Medical History: Unable to Obtain General Exam Limitations: no limitations General appearance: alert, in no apparent distress Head exam: Present: atraumatic, normocephalic, normal inspection ENT exam: Present: normal exam, mucous membranes moist Neck exam: Present: normal inspection. Absent: tenderness, meningismus, lymphadenopathy Respiratory exam: Present: normal lung sounds bilaterally. Absent: respiratory distress, wheezes, rales, rhonchi, stridor Cardiovascular Exam: Present: regular rate, normal rhythm, normal heart sounds. Absent: systolic murmur, diastolic murmur, rubs, gallop, clicks Neurological exam: Present: alert, oriented X3 Psychiatric exam: Present: normal affect, normal mood Skin exam: Present: warm, dry, normal color. Absent: intact (Patient does appear to have second-degree stewart to the left hand in the first second and third digits at the tips. They're not circumferential. There is blisters noted. No sign of secondary infection.), rash Course Vital Signs 04/02/17 10:09 Temperature 97.8 F Pulse Rate 113 H Respiratory 18 Rate Blood Pressure 158/81 O2 Sat by Pulse 98 Oximetry Medical Decision Making - Medical Decision Making 51-year-old smoker presents for second-degree stewart to the left hand. At this time the areas were cleaned and soaked. At this time bacitracin bandages were placed. We did get the prescription for bacitracin for home to continued care of this. We did discuss follow-up with her doctor. Patient's blood pressure is mildly high and she seen her doctor tomorrow to get a refill of her medications. We did discuss all the patient's questions. We did discuss all return parameters. He stated he understood and they are in agreement plan. Patient was informed that she is hypertensive this was treated we discussed close follow-up with her doctor. Disposition Clinical Impression: Burn of finger, second degree, Hypertension Disposition: HOME SELF-CARE Condition: Stable Instructions: Second Degree Burn (ED) Additional Instructions: Please use medication as discussed. Please follow up with family doctor if symptoms have not improved over the next two days. Please return to the emergency room if your symptoms increase or worsen or for any other concerns. Prescriptions: Bacitracin Oint 1 applic TOPICAL TID #1 tube Referrals: Nico Parr MD [Primary Care Provider] - 1-2 days Time of Disposition: 10:45
[2017-04-02 10:24] VITALS: RESP 18
[2017-04-02] MEDS ORDERED: cloNIDine HCL 0.1 MG TAB PO STA (10:44)
[2017-04-02 11:11] VITALS: BP 147/82; PULSE 101; TEMP 98
== END 2017-04-02 11:11 | disposition home or self-care (01) ==
LOC: EC 10:00
DX: T23.242A Burn of second degree of multiple left fingers (nail), including thumb, initial encounter (principal); I10 Essential (primary) hypertension; F20.9 Schizophrenia, unspecified; F17.200 Nicotine dependence, unspecified, uncomplicated; Z23 Encounter for immunization; Z91.041 Radiographic dye allergy status; Z91.040 Latex allergy status; Z88.0 Allergy status to penicillin; Z88.2 Allergy status to sulfonamides; Z88.1 Allergy status to other antibiotic agents; Z88.8 Allergy status to other drugs, medicaments and biological substances; Z79.899 Other long term (current) drug therapy; X15.0XXA Contact with hot stove (kitchen), initial encounter; Y93.G3 Activity, cooking and baking
CPT/HCPCS: 16020; 90471; 90715; 99284

== ENCOUNTER 2017-04-18 07:13 | Emergency (ER) | payer MEDICARE, OTHER ==
[2017-04-18 07:23] VITALS: BP 196/89; PULSE 69; RESP 20; TEMP 98.2
[2017-04-18] MEDS ORDERED: cloNIDine HCL 0.1 MG TAB PO STA (08:18)
--- NOTE | 2017-04-18 08:28 | ED ---
General Adult HPI - General Chief complaint: Recheck/Abnormal Lab/Rx Stated complaint: Difficulty Breathing Time Seen by Provider: 04/18/17 08:03 Source: patient, RN notes reviewed Mode of arrival: EMS Limitations: no limitations - History of Present Illness Initial comments: Patient is a 51-year-old female who presents emergency room today with a chief complaint of elevated blood pressure at home. She does admit that theACT tingling comes daily to give her medication. States she lost until yesterday when was given to her. Patient was worried that they recommended coming today. She states she noticed her blood pressure was elevated. She denies any other complaints or associated symptoms. Patient denies any recent fever, chills, shortness of breath, chest pain, back pain, abdominal pain, nausea or vomiting, numbness or tingling, dysuria or hematuria, constipation or diarrhea, headaches or visual changes, or any other complaints. - Related Data Home Medications Medication Instructions Recorded Confirmed cloNIDine HCL 0.3 mg PO TID 02/11/16 04/18/17 Losartan Potassium [Cozaar] 100 mg PO DAILY 03/26/16 04/18/17 amLODIPine BESYLATE [Norvasc] 5 mg PO DAILY 05/13/16 04/18/17 Albuterol Sulfate [Proair Hfa] 1 - 2 puff INHALATION RT-Q4H PRN 12/27/16 fluPHENAZine DECANOATE [Prolixin 50 mg IM MO 02/08/17 04/18/17 Decanoate] Isosorbide Mononitrate ER [Imdur] 30 mg PO QAM 02/24/17 04/18/17 Previous Rx's Medication Instructions Recorded Bacitracin Oint 1 applic TOPICAL TID #1 tube 04/02/17 Allergies Allergy/AdvReac Type Severity Reaction Status Date / Time Iodinated Contrast- Oral and Allergy Rash/Hives Verified 04/18/17 07:33 IV Dye latex Allergy Rash/Hives Verified 04/18/17 07:33 Penicillins Allergy Rash/Hives Verified 04/18/17 07:33 propoxyphene Allergy Unknown Verified 04/18/17 07:33 Quinolones Allergy Rash/Hives Verified 04/18/17 07:33 Sulfa (Sulfonamide Allergy Rash/Hives Verified 04/18/17 07:33 Antibiotics) Review of Systems ROS Statement: Those systems with pertinent positive or pertinent negative responses have been documented in the HPI. ROS Other: All systems not noted in ROS Statement are negative. Past Medical History Past Medical History: Hypertension, Respiratory Disorder, Sleep Apnea/CPAP/BIPAP Additional Past Medical History / Comment(s): head injury in the past History of Any Multi-Drug Resistant Organisms: None Reported Past Surgical History: Section, Heart Catheterization, Uterine Ablation Additional Past Surgical History / Comment(s): eye surgery, lithotripsy, OVARIAN CYST REMOVED RIGHT SIDE Past Anesthesia/Blood Transfusion Reactions: No Reported Reaction Past Psychological History: Anxiety, Bipolar, Depression, Schizophrenia Smoking Status: Current every day smoker Past Alcohol Use History: None Reported Past Drug Use History: None Reported - Past Family History Mother Family Medical History: Cancer Father Family Medical History: Unable to Obtain General Exam - General Exam Comments Initial Comments: General: The patient is awake and alert, in no distress, and does not appear acutely ill. Eye: Pupils are equal, round and reactive to light, extra-ocular movements are intact. No nystagmus. There is normal conjunctiva bilaterally. No signs of icterus. Ears, nose, mouth and throat: There are moist mucous membranes and no oral lesions. Neck: The neck is supple, there is no tenderness or JVD. Cardiovascular: There is a regular rate and rhythm. No murmur, rub or gallop is appreciated. Respiratory: Lungs are clear to auscultation, respirations are non-labored, breath sounds are equal. No wheezes, stridor, rales, or rhonchi. Musculoskeletal: Normal ROM, no tenderness. Strength 5/5. Sensation intact. Pulses equal bilaterally 2+. Neurological: A&O x 3. CN II-XII intact, There are no obvious motor or sensory deficits. Coordination appears grossly intact. Speech is normal. Skin: Skin is warm and dry and no rashes or lesions are noted. Psychiatric: Cooperative,Flat affect. Limitations: no limitations Course Vital Signs 04/18/17 07:20 Temperature 98.2 F Pulse Rate 69 Respiratory 20 Rate Blood Pressure 196/89 O2 Sat by Pulse 94 L Oximetry Medical Decision Making - Medical Decision Making Given dose of clonidine here in the emergency room discharged home Disposition Clinical Impression: HTN (hypertension) Disposition: HOME SELF-CARE Condition: Good Instructions: Chronic Hypertension (ED) Additional Instructions: Please use medication as discussed. Please follow-up with family doctor in the next 2 days of symptoms have not improved. Please return to emergency room if the symptoms increase or worsen or for any other concerns. Referrals: Nico Parr MD [Primary Care Provider] - 1-2 days Time of Disposition: 08:27
== END 2017-04-18 08:34 | disposition home or self-care (01) ==
LOC: EC 07:13
DX: I10 Essential (primary) hypertension (principal); F20.9 Schizophrenia, unspecified; F31.9 Bipolar disorder, unspecified; F41.9 Anxiety disorder, unspecified; F17.200 Nicotine dependence, unspecified, uncomplicated; Z79.899 Other long term (current) drug therapy; Z91.041 Radiographic dye allergy status; Z91.040 Latex allergy status; Z88.0 Allergy status to penicillin; Z88.2 Allergy status to sulfonamides; Z88.8 Allergy status to other drugs, medicaments and biological substances; Z87.09 Personal history of other diseases of the respiratory system; Z95.818 Presence of other cardiac implants and grafts
CPT/HCPCS: 99285

== ENCOUNTER 2017-04-23 12:35 | Emergency (ER) | payer MEDICARE, OTHER ==
[2017-04-23] MEDS ORDERED: cloNIDine HCL 0.1 MG TAB PO STA (12:46)
[2017-04-23 13:52] VITALS: BP 189/91; PULSE 58; RESP 16
--- NOTE | 2017-04-23 13:58 | ED ---
General Adult HPI - General Chief complaint: Recheck/Abnormal Lab/Rx Stated complaint: MARINA, Chest Pain Time Seen by Provider: 04/23/17 12:42 Source: patient, EMS, RN notes reviewed, old records reviewed Mode of arrival: EMS Limitations: no limitations - History of Present Illness Initial comments: Chief complaint history of present illness is a 51-year-old female well-known emergency room. The patient comes in very frequently with a request for her clonidine. The patient's blood pressures usually elevated complains chest discomfort and shortness of breath. Blood pressure was elevated upon arrival to emergency room she was given Catapres 0.3 which is her normal dose which is taking 3 times a day. Patient reports all discomforts go away when she takes her pill. - Related Data Home Medications Medication Instructions Recorded Confirmed cloNIDine HCL 0.3 mg PO TID 02/11/16 04/23/17 Losartan Potassium [Cozaar] 100 mg PO DAILY 03/26/16 04/23/17 amLODIPine BESYLATE [Norvasc] 5 mg PO DAILY 05/13/16 04/23/17 Albuterol Sulfate [Proair Hfa] 1 - 2 puff INHALATION RT-Q4H PRN 12/27/16 fluPHENAZine DECANOATE [Prolixin 50 mg IM MO 02/08/17 04/23/17 Decanoate] Isosorbide Mononitrate ER [Imdur] 30 mg PO QAM 02/24/17 04/23/17 Previous Rx's Medication Instructions Recorded Bacitracin Oint 1 applic TOPICAL TID #1 tube 04/02/17 Allergies Allergy/AdvReac Type Severity Reaction Status Date / Time Iodinated Contrast- Oral and Allergy Rash/Hives Verified 04/23/17 12:43 IV Dye latex Allergy Rash/Hives Verified 04/23/17 12:43 Penicillins Allergy Rash/Hives Verified 04/23/17 12:43 propoxyphene Allergy Unknown Verified 04/23/17 12:43 Quinolones Allergy Rash/Hives Verified 04/23/17 12:43 Sulfa (Sulfonamide Allergy Rash/Hives Verified 04/23/17 12:43 Antibiotics) Review of Systems ROS Statement: Those systems with pertinent positive or pertinent negative responses have been documented in the HPI. review of systems patient has schizophrenia. Chronically complains of discomfort to the chest and shortness of breath. She takes medications as listed. No recent injury. Stat EKG was done which showed normal sinus rhythm same as previous EKGs without acute changes. Lungs are clear to auscultation. No abdominal pain. Patient denies depression or suicidal thoughts. Past medical problems significant for hypertension, respiratory disorder, sleep apnea. Previous head injury. Surgeries heart catheterization uterine ablation , eye surgery and C-sections. Family history noncontributory. The patient's ALLERGIES include IV dye, latex, penicillin, propoxyphene, quinolones, sulfa drugs. Patient is a very heavy smoker causing calluses to her fingers. Strongly encouraged to stop. Denies alcohol use. ROS Other: All systems not noted in ROS Statement are negative. Past Medical History Past Medical History: Hypertension, Respiratory Disorder, Sleep Apnea/CPAP/BIPAP Additional Past Medical History / Comment(s): head injury in the past History of Any Multi-Drug Resistant Organisms: None Reported Past Surgical History: Section, Heart Catheterization, Uterine Ablation Additional Past Surgical History / Comment(s): eye surgery, lithotripsy, OVARIAN CYST REMOVED RIGHT SIDE Past Anesthesia/Blood Transfusion Reactions: No Reported Reaction Past Psychological History: Anxiety, Bipolar, Depression, Schizophrenia Smoking Status: Current every day smoker Past Alcohol Use History: None Reported Past Drug Use History: None Reported - Past Family History Mother Family Medical History: Cancer Father Family Medical History: Unable to Obtain General Exam - General Exam Comments Initial Comments: General: The patient is awake and alert, recurrent complaint of shortness of breath and chest discomfort. Vital signs shows temperature 98.5 pulse 71 respiratory rate 20 pulse ox 95% room air blood pressure 190/94 Eye: Pupils are equal, round and reactive to light, extra-ocular movements are intact ; there is normal conjunctiva bilaterally. No signs of icterus. Ears, nose, mouth and throat: There are moist mucous membranes and no oral lesions. Neck: The neck is supple, there is no tenderness .. Cardiovascular: There is a regular rate and rhythm. No murmur, rub or gallop is appreciated.patient denies any chest pain at this time. EKG was done which did not show any acute changes or ischemic changes. It was similar to EKG done several weeks ago. Patient was given Catapres 0.3 by mouth. Respiratory: Lungs are clear to auscultation, respirations are non-labored, breath sounds are equal. No wheezes, stridor, rales, or rhonchi.no complaint of shortness of breath on physical examination. Gastrointestinal: Soft, non-distended, non-tender abdomen without masses or organomegaly noted. There is no rebound or guarding present. No CVA tenderness. Bowel sounds are unremarkable. Back: There is no tenderness to palpation in the midline. There is no obvious deformity. Musculoskeletal: no complaint of upper or lower extremity pain or problems. Mild edema distally. Neurological: no complaint of or any evidence of any gross neurological deficits. Skin: Skin is warm and dry and no rashes or lesions are noted. Psychiatric: history of schizophrenia. Denying depression or suicidal thoughts. Limitations: no limitations Course Vital Signs 04/23/17 04/23/17 04/23/17 12:38 13:06 13:50 Temperature 98.5 F Pulse Rate 71 70 58 L Respiratory 20 18 16 Rate Blood Pressure 198/94 201/105 189/91 O2 Sat by Pulse 95 95 96 Oximetry Medical Decision Making - Medical Decision Making patient received Catapres 0.3 by mouth. No complaint chest pain or shortness of breath. The patient's guardian did call the hospital. She has not want Soumya to receive the things she normally requests including a taxicab ride home and a sandwich upon arrival to emergency room. EMS reports that she had called them earlier in the day but changed her mind, told them they may need to come back later. Disposition Clinical Impression: Schizophrenia, History of hypertension Disposition: HOME SELF-CARE Condition: Stable Instructions: Hypertension (ED) Additional Instructions: Continue with home medications. Contact follow-up family physician. Referrals: Nico Parr MD [Primary Care Provider] - 1-2 days Time of Disposition: 13:58
[2017-04-23 13:59] VITALS: TEMP 98.4
== END 2017-04-23 14:02 | disposition home or self-care (01) ==
LOC: EC 12:35
DX: F20.9 Schizophrenia, unspecified (principal); I10 Essential (primary) hypertension; F17.200 Nicotine dependence, unspecified, uncomplicated; Z79.899 Other long term (current) drug therapy; Z88.0 Allergy status to penicillin; Z88.1 Allergy status to other antibiotic agents; Z88.2 Allergy status to sulfonamides; Z88.5 Allergy status to narcotic agent; Z91.040 Latex allergy status; Z91.041 Radiographic dye allergy status
CPT/HCPCS: 93005; 99285

== ENCOUNTER 2017-05-08 08:31 | Emergency (ER) | payer MEDICARE, OTHER ==
[2017-05-08 08:39] VITALS: TEMP 97.8
[2017-05-08 08:58] VITALS: BP 199/122; PULSE 78; RESP 20
--- NOTE | 2017-05-08 09:16 | ED ---
General Adult HPI - General Chief complaint: Chest Pain Stated complaint: Hypertension Time Seen by Provider: 05/08/17 08:42 Source: patient, RN notes reviewed Mode of arrival: wheelchair Limitations: no limitations - History of Present Illness Initial comments: Patient is a 51-year-old female returning to the emergency department requesting blood pressure medication. Patient states she took her blood pressure at home this morning and it was high. Patient admits she did not yet take her blood pressure medication. Patient states she is supposed to go to the act team at 10:00 for her medication. Patient states she likes to come here instead because she likes are medication better. Patient requests clonidine. Patient states she does have chest discomfort and shortness of breath however states this is her chronic chest discomfort and shortness of breath that she does have daily. No change in her chronic chest discomfort or shortness of breath. - Related Data Home Medications Medication Instructions Recorded Confirmed cloNIDine HCL 0.3 mg PO TID 02/11/16 04/23/17 Losartan Potassium [Cozaar] 100 mg PO DAILY 03/26/16 04/23/17 amLODIPine BESYLATE [Norvasc] 5 mg PO DAILY 05/13/16 04/23/17 Albuterol Sulfate [Proair Hfa] 1 - 2 puff INHALATION RT-Q4H PRN 12/27/16 fluPHENAZine DECANOATE [Prolixin 50 mg IM MO 02/08/17 04/23/17 Decanoate] Isosorbide Mononitrate ER [Imdur] 30 mg PO QAM 02/24/17 04/23/17 Previous Rx's Medication Instructions Recorded Bacitracin Oint 1 applic TOPICAL TID #1 tube 04/02/17 Allergies Allergy/AdvReac Type Severity Reaction Status Date / Time Iodinated Contrast- Oral and Allergy Rash/Hives Verified 05/08/17 09:09 IV Dye latex Allergy Rash/Hives Verified 05/08/17 09:09 Penicillins Allergy Rash/Hives Verified 05/08/17 09:09 propoxyphene Allergy Unknown Verified 05/08/17 09:09 Quinolones Allergy Rash/Hives Verified 05/08/17 09:09 Sulfa (Sulfonamide Allergy Rash/Hives Verified 05/08/17 09:09 Antibiotics) Review of Systems ROS Statement: Those systems with pertinent positive or pertinent negative responses have been documented in the HPI. ROS Other: All systems not noted in ROS Statement are negative. Constitutional: Denies: fever Eyes: Denies: eye pain ENT: Denies: ear pain Respiratory: Reports: dyspnea. Denies: cough Cardiovascular: Reports: chest pain Endocrine: Denies: fatigue Gastrointestinal: Denies: abdominal pain Genitourinary: Denies: dysuria Musculoskeletal: Denies: back pain Skin: Denies: rash Neurological: Denies: weakness Past Medical History Past Medical History: Hypertension, Respiratory Disorder, Sleep Apnea/CPAP/BIPAP Additional Past Medical History / Comment(s): head injury in the past History of Any Multi-Drug Resistant Organisms: None Reported Past Surgical History: Section, Heart Catheterization, Uterine Ablation Additional Past Surgical History / Comment(s): eye surgery, lithotripsy, OVARIAN CYST REMOVED RIGHT SIDE Past Anesthesia/Blood Transfusion Reactions: No Reported Reaction Past Psychological History: Anxiety, Bipolar, Depression, Schizophrenia Smoking Status: Current every day smoker Past Alcohol Use History: None Reported Past Drug Use History: None Reported - Past Family History Mother Family Medical History: Cancer Father Family Medical History: Unable to Obtain General Exam Limitations: no limitations General appearance: alert, in no apparent distress, other (Poor hygiene) Head exam: Present: atraumatic Eye exam: Present: normal appearance, PERRL ENT exam: Present: normal oropharynx Neck exam: Present: normal inspection Respiratory exam: Present: normal lung sounds bilaterally Cardiovascular Exam: Present: regular rate, normal rhythm Expanded Peripheral pulses: 2+: Radial (R), Radial (L), Dorsalis Pedis (R), Dorsalis Pedis (L) GI/Abdominal exam: Present: soft. Absent: tenderness Extremities exam: Present: normal inspection. Absent: pedal edema, calf tenderness Neurological exam: Present: alert Psychiatric exam: Present: flat affect Skin exam: Present: normal color Course Vital Signs 05/08/17 05/08/17 08:36 08:57 Temperature 97.8 F Pulse Rate 77 78 Respiratory 18 20 Rate Blood Pressure 226/107 199/122 O2 Sat by Pulse 97 98 Oximetry - Reevaluation(s) Reevaluation #1: 05/08/17 09:12 Repeat blood pressure 194/91. Patient is advised to go to the act team for her blood pressure medication. EKG Findings - EKG Comments: EKG Findings:: Normal sinus rhythm 68. GA 190. QRS 80. QT 432. QTC 459. Normal axis. Septal Q waves. No acute ST change. Disposition Clinical Impression: Hypertension Disposition: HOME SELF-CARE Condition: Stable Instructions: Chest Pain (ED), Hypertension (ED) Additional Instructions: Please head to the act team to get your medication. Return for worsening or change in symptoms. Referrals: Nico Parr MD [Primary Care Provider] - 1-2 days Time of Disposition: 09:16
== END 2017-05-08 09:26 | disposition home or self-care (01) ==
LOC: EC 08:31
DX: I10 Essential (primary) hypertension (principal); R07.89 Other chest pain; R06.02 Shortness of breath; Z79.899 Other long term (current) drug therapy; Z91.040 Latex allergy status; Z91.041 Radiographic dye allergy status; Z88.0 Allergy status to penicillin; Z88.2 Allergy status to sulfonamides; Z88.1 Allergy status to other antibiotic agents; Z88.8 Allergy status to other drugs, medicaments and biological substances
CPT/HCPCS: 99284

== ENCOUNTER 2017-05-11 03:39 | Emergency (ER) | payer MEDICARE, OTHER ==
[2017-05-11] MEDS ORDERED: cloNIDine HCL 0.1 MG TAB PO STA (04:09)
--- NOTE | 2017-05-11 04:09 | ED ---
General Adult HPI - General Chief complaint: Recheck/Abnormal Lab/Rx Stated complaint: Hypertension Time Seen by Provider: 05/11/17 03:41 Source: patient, EMS, RN notes reviewed, old records reviewed Mode of arrival: EMS Limitations: no limitations - History of Present Illness Initial comments: This is a 51-year-old female the ER for evaluation of multiple complaints. Patient as well as his emergency room for similar complaints, patient complains of chest pain syncope and elevated blood pressure. Do not take her blood pressure tonight. Patient brought by EMS. - Related Data Home Medications Medication Instructions Recorded Confirmed cloNIDine HCL 0.3 mg PO TID 02/11/16 05/08/17 Losartan Potassium [Cozaar] 100 mg PO DAILY 03/26/16 05/08/17 amLODIPine BESYLATE [Norvasc] 5 mg PO DAILY 05/13/16 05/08/17 Albuterol Sulfate [Proair Hfa] 1 - 2 puff INHALATION RT-Q4H PRN 12/27/16 fluPHENAZine DECANOATE [Prolixin 50 mg IM MO 02/08/17 05/08/17 Decanoate] Atenolol 25 mg PO DAILY 05/08/17 05/08/17 Allergies Allergy/AdvReac Type Severity Reaction Status Date / Time Iodinated Contrast- Oral and Allergy Rash/Hives Verified 05/11/17 03:44 IV Dye latex Allergy Rash/Hives Verified 05/11/17 03:44 Penicillins Allergy Rash/Hives Verified 05/11/17 03:44 propoxyphene Allergy Unknown Verified 05/11/17 03:44 Quinolones Allergy Rash/Hives Verified 05/11/17 03:44 Sulfa (Sulfonamide Allergy Rash/Hives Verified 05/11/17 03:44 Antibiotics) Review of Systems ROS Statement: Those systems with pertinent positive or pertinent negative responses have been documented in the HPI. ROS Other: All systems not noted in ROS Statement are negative. Past Medical History Past Medical History: Hypertension, Respiratory Disorder, Sleep Apnea/CPAP/BIPAP Additional Past Medical History / Comment(s): head injury in the past History of Any Multi-Drug Resistant Organisms: None Reported Past Surgical History: Section, Heart Catheterization, Uterine Ablation Additional Past Surgical History / Comment(s): eye surgery, lithotripsy, OVARIAN CYST REMOVED RIGHT SIDE Past Anesthesia/Blood Transfusion Reactions: No Reported Reaction Past Psychological History: Anxiety, Bipolar, Depression, Schizophrenia Smoking Status: Current some day smoker Past Alcohol Use History: None Reported Past Drug Use History: None Reported - Past Family History Mother Family Medical History: Cancer Father Family Medical History: Unable to Obtain General Exam Limitations: no limitations General appearance: alert, in no apparent distress Head exam: Present: atraumatic, normocephalic, normal inspection Eye exam: Present: normal appearance, PERRL, EOMI. Absent: scleral icterus, conjunctival injection, periorbital swelling ENT exam: Present: normal exam, mucous membranes moist Neck exam: Present: normal inspection. Absent: tenderness, meningismus, lymphadenopathy Respiratory exam: Present: normal lung sounds bilaterally. Absent: respiratory distress, wheezes, rales, rhonchi, stridor Cardiovascular Exam: Present: regular rate, normal rhythm, normal heart sounds. Absent: systolic murmur, diastolic murmur, rubs, gallop, clicks GI/Abdominal exam: Present: soft, normal bowel sounds. Absent: distended, tenderness, guarding, rebound, rigid Extremities exam: Present: normal inspection, full ROM, normal capillary refill. Absent: tenderness, pedal edema, joint swelling, calf tenderness Back exam: Present: normal inspection Neurological exam: Present: alert, oriented X3, CN II-XII intact Psychiatric exam: Present: normal affect, normal mood Skin exam: Present: warm, dry, intact, normal color. Absent: rash Course Vital Signs 05/11/17 03:40 Temperature 97.6 F Pulse Rate 70 Respiratory 20 Rate Blood Pressure 192/77 O2 Sat by Pulse 96 Oximetry - Reevaluation(s) Reevaluation #1: 05/11/17 04:08 ACT team contated Medical Decision Making - Medical Decision Making 51 female and is emergency room, patient will be discharged home Disposition Clinical Impression: Chest pain, Hypertension Disposition: HOME SELF-CARE Condition: Good Instructions: Hypertension (ED) Referrals: Nico Parr MD [Primary Care Provider] - 1-2 days
[2017-05-11 05:07] VITALS: BP 165/76; PULSE 84; RESP 18; TEMP 97.9
== END 2017-05-11 05:06 | disposition home or self-care (01) ==
LOC: EC 03:39
DX: I10 Essential (primary) hypertension (principal); R07.9 Chest pain, unspecified; R55 Syncope and collapse; F20.9 Schizophrenia, unspecified; F17.200 Nicotine dependence, unspecified, uncomplicated; Z79.899 Other long term (current) drug therapy; Z88.0 Allergy status to penicillin; Z88.1 Allergy status to other antibiotic agents; Z88.5 Allergy status to narcotic agent; Z88.2 Allergy status to sulfonamides; Z91.040 Latex allergy status; Z91.041 Radiographic dye allergy status; Z95.818 Presence of other cardiac implants and grafts
CPT/HCPCS: 93005; 99284

== ENCOUNTER 2017-05-14 10:42 | Emergency (ER) | payer MEDICARE, OTHER ==
[2017-05-14 10:48] LABS: Glucose,Whole Blood 107 mg/dL (75-99)
[2017-05-14] MEDS ORDERED: SODIUM CHLORIDE 0.9% 1,000 ML IV STA ×2 (10:48)
--- NOTE | 2017-05-14 10:51 | ED ---
Syncope HPI - General Stated Complaint: Syncope Time Seen by Provider: 05/14/17 10:42 Source: patient, EMS, RN notes reviewed, old records reviewed Mode of arrival: EMS - History of Present Illness Initial Comments: Is a 51-year-old female with a history of multiple visits the emergency department for multiple reasons who is here today for states she passed out when she got up off her front porch with no injury sustained. She states she was unconscious for 2 minutes. She also complains of sharp midsternal chest pain it radiates to her back. She denies any fevers chills nausea vomiting sweats she does state her blood pressure is elevated and she needs a 0.3 mg clonidine. She does states she took her medications this morning. She is a smoker one half pack per day. No other complaints. MD Complaint: loss of consciousness, other - Related Data Home Medications Medication Instructions Recorded Confirmed cloNIDine HCL 0.3 mg PO TID 02/11/16 05/14/17 Losartan Potassium [Cozaar] 100 mg PO DAILY 03/26/16 05/14/17 amLODIPine BESYLATE [Norvasc] 5 mg PO DAILY 05/13/16 05/14/17 Albuterol Sulfate [Proair Hfa] 1 - 2 puff INHALATION RT-Q4H PRN 12/27/16 fluPHENAZine DECANOATE [Prolixin 50 mg IM MO 02/08/17 05/14/17 Decanoate] Atenolol 25 mg PO DAILY 05/08/17 05/14/17 Allergies Allergy/AdvReac Type Severity Reaction Status Date / Time Iodinated Contrast- Oral and Allergy Rash/Hives Verified 05/14/17 11:09 IV Dye latex Allergy Rash/Hives Verified 05/14/17 11:09 Penicillins Allergy Rash/Hives Verified 05/14/17 11:09 propoxyphene Allergy Unknown Verified 05/14/17 11:09 Quinolones Allergy Rash/Hives Verified 05/14/17 11:09 Sulfa (Sulfonamide Allergy Rash/Hives Verified 05/14/17 11:09 Antibiotics) Review of Systems ROS Statement: Those systems with pertinent positive or pertinent negative responses have been documented in the HPI. ROS Other: All systems not noted in ROS Statement are negative. Past Medical History Past Medical History: Hypertension, Respiratory Disorder, Sleep Apnea/CPAP/BIPAP Additional Past Medical History / Comment(s): head injury in the past History of Any Multi-Drug Resistant Organisms: None Reported Past Surgical History: Section, Heart Catheterization, Uterine Ablation Additional Past Surgical History / Comment(s): eye surgery, lithotripsy, OVARIAN CYST REMOVED RIGHT SIDE Past Anesthesia/Blood Transfusion Reactions: No Reported Reaction Past Psychological History: Anxiety, Bipolar, Depression, Schizophrenia Smoking Status: Current some day smoker Past Alcohol Use History: None Reported Past Drug Use History: None Reported - Past Family History Mother Family Medical History: Cancer Father Family Medical History: Unable to Obtain General Exam - General Exam Comments Initial Comments: Is a well-developed well-nourished awake alert oriented 3 female General appearance: alert Head exam: Present: atraumatic, normocephalic, normal inspection Eye exam: Present: normal appearance, PERRL, EOMI. Absent: scleral icterus, conjunctival injection, periorbital swelling ENT exam: Present: mucous membranes dry Neck exam: Present: normal inspection. Absent: tenderness, meningismus, lymphadenopathy Respiratory exam: Present: normal lung sounds bilaterally, chest wall tenderness (Reproducible tenderness palpation over the mid sternal costochondral costal sternal junction no step-off or crepitation.). Absent: respiratory distress, wheezes, rales, rhonchi, stridor Cardiovascular Exam: Present: regular rate, normal rhythm, normal heart sounds. Absent: systolic murmur, diastolic murmur, rubs, gallop, clicks GI/Abdominal exam: Present: soft, normal bowel sounds, other (Obese abdomen). Absent: distended, tenderness, guarding, rebound, rigid, pulsatile mass Extremities exam: Present: normal inspection, full ROM, normal capillary refill. Absent: tenderness, pedal edema, joint swelling, calf tenderness Back exam: Present: normal inspection Neurological exam: Present: alert, oriented X3, CN II-XII intact Psychiatric exam: Present: normal affect, normal mood Skin exam: Present: warm, dry, intact, normal color. Absent: rash Course Vital Signs 05/14/17 05/14/17 11:09 12:02 Temperature 98 F Pulse Rate 71 65 Respiratory 18 18 Rate Blood Pressure 204/95 189/100 O2 Sat by Pulse 98 99 Oximetry EKG Findings - EKG Results: EKG: interpreted by KORY, [place] rhythm [place] [address] QRS duration 90 QT since QTC of 448/458 poor R-wave progression no acute ST-T wave changes seen at this time) Medical Decision Making - Medical Decision Making Is refusing to stay for the results of her testing that was performed. Is awake alert oriented history she is able amulet without difficulty. She is demanding blood pressure medications and nicotine patch which she apparently has not gotten filled the prescription was written. Patient refuses a seen in the emergency department any longer. The findings with he did indeed happen or consistent with orthostatic hypotension and chest wall pain we did discuss smoking cessation for 3.1 minutes. - Lab Data Result diagrams: 05/14/17 12:00 05/14/17 12:00 Lab Results 05/14/17 05/14/17 05/14/17 Range/Units 10:47 12:00 12:00 WBC 7.5 (3.8-10.6) k/uL RBC 5.47 H (3.80-5.40) m/uL Hgb 17.4 H (11.4-16.0) gm/dL Hct 53.5 H (34.0-46.0) % MCV 97.8 (80.0-100.0) fL MCH 31.9 (25.0-35.0) pg MCHC 32.6 (31.0-37.0) g/dL RDW 13.3 (11.5-15.5) % Plt Count 313 (150-450) k/uL Neutrophils % 64 % Lymphocytes % 28 % Monocytes % 5 % Eosinophils % 1 % Basophils % 1 % Neutrophils # 4.8 (1.3-7.7) k/uL Lymphocytes # 2.1 (1.0-4.8) k/uL Monocytes # 0.4 (0-1.0) k/uL Eosinophils # 0.1 (0-0.7) k/uL Basophils # 0.1 (0-0.2) k/uL PT (9.0-12.0) sec INR (<1.2) APTT (22.0-30.0) sec Sodium 143 (137-145) mmol/L Potassium 5.0 (3.5-5.1) mmol/L Chloride 106 (98-107) mmol/L Carbon Dioxide 27 (22-30) mmol/L Anion Gap 10 mmol/L BUN 12 (7-17) mg/dL Creatinine 0.99 (0.52-1.04) mg/dL Est GFR (MDRD) Af Amer >60 (>60 ml/min/1.73 sqM) Est GFR (MDRD) Non-Af 59 (>60 ml/min/1.73 sqM) Glucose 98 (74-99) mg/dL POC Glucose (mg/dL) 107 H (75-99) mg/dL POC Glu [employer] Kitchen ID [place] Coyne Calcium 9.8 (8.4-10.2) mg/dL Magnesium 1.9 (1.6-2.3) mg/dL Total Bilirubin 0.4 (0.2-1.3) mg/dL AST 18 (14-36) U/L ALT 31 (9-52) U/L Alkaline Phosphatase 110 (38-126) U/L Total Protein 7.2 (6.3-8.2) g/dL Albumin 4.0 (3.5-5.0) g/dL 05/14/17 Range/Units 12:00 WBC (3.8-10.6) k/uL RBC (3.80-5.40) m/uL Hgb (11.4-16.0) gm/dL Hct (34.0-46.0) % MCV (80.0-100.0) fL MCH (25.0-35.0) pg MCHC (31.0-37.0) g/dL RDW (11.5-15.5) % Plt Count (150-450) k/uL Neutrophils % % Lymphocytes % % Monocytes % % Eosinophils % % Basophils % % Neutrophils # (1.3-7.7) k/uL Lymphocytes # (1.0-4.8) k/uL Monocytes # (0-1.0) k/uL Eosinophils # (0-0.7) k/uL Basophils # (0-0.2) k/uL PT 11.0 (9.0-12.0) sec INR 1.1 (<1.2) APTT 25.3 (22.0-30.0) sec Sodium (137-145) mmol/L Potassium (3.5-5.1) mmol/L Chloride (98-107) mmol/L Carbon Dioxide (22-30) mmol/L Anion Gap mmol/L BUN (7-17) mg/dL Creatinine (0.52-1.04) mg/dL Est GFR (MDRD) Af Amer (>60 ml/min/1.73 sqM) Est GFR (MDRD) Non-Af (>60 ml/min/1.73 sqM) Glucose (74-99) mg/dL POC Glucose (mg/dL) (75-99) mg/dL POC Glu [employer] Kitchen ID Calcium (8.4-10.2) mg/dL Magnesium (1.6-2.3) mg/dL Total Bilirubin (0.2-1.3) mg/dL AST (14-36) U/L ALT (9-52) U/L Alkaline Phosphatase (38-126) U/L Total Protein (6.3-8.2) g/dL Albumin (3.5-5.0) g/dL Disposition Clinical Impression: Syncope due to orthostatic hypotension, Chest wall pain, Noncompliance Disposition: Left Against Medical Advice Condition: Stable Referrals: Nico Parr MD [Primary Care Provider] - 1-2 days
[2017-05-14 11:15] VITALS: RESP 18; TEMP 98
[2017-05-14 12:03] VITALS: BP 189/100; PULSE 65
[2017-05-14] MEDS ORDERED: cloNIDine HCL 0.1 MG TAB PO STA (12:06)
[2017-05-14 12:18] LABS: Basophils # (A) 0.1 k/uL (0-0.2); Basophils % (A) 1 %; CHCM 33.9; Eosinophils # (A) 0.1 k/uL (0-0.7); Eosinophils % (A) 1 %; HCT 53.5 % (34.0-46.0); HDW 2.35; HGB 17.4 gm/dL (11.4-16.0); Luc # (Auto) 0.14; Luc % (Auto) 2; Lymphocytes # (A) 2.1 k/uL (1.0-4.8); Lymphocytes % (A) 28 %; MCH 31.9 pg (25.0-35.0); MCHC 32.6 g/dL (31.0-37.0); MCV 97.8 fL (80.0-100.0); Mean Platelet Volume 8.2; Monocytes # (A) 0.4 k/uL (0-1.0); Monocytes % (A) 5 %; Neutrophils # (A) 4.8 k/uL (1.3-7.7); Neutrophils % (A) 64 %; RBC 5.47 m/uL (3.80-5.40); RDW 13.3 % (11.5-15.5); WBC 7.5 k/uL (3.8-10.6); WBC (Perox) 7.47
[2017-05-14 12:25] LABS: INR 1.1 (<1.2); Partial Thromboplastin Time 25.3 sec (22.0-30.0)
--- NOTE | 2017-05-14 12:25 | XR ---
EXAMINATION TYPE: XR chest 2V DATE OF EXAM: 05/14/2017 COMPARISON: March 19 2017. HISTORY: Chest pain TECHNIQUE: Frontal and lateral views of the chest are obtained. FINDINGS: Cardiac silhouette is mildly enlarged and stable. No pneumothorax is identified. There are small bilateral pleural effusions. There is mild to moderate pulmonary vascular congestion. IMPRESSION: Mild to moderate CHF with small bilateral pleural effusions.
[2017-05-14 12:31] LABS: ALT 31 U/L (9-52); AST 18 U/L (14-36); Alkaline Phosphatase 110 U/L (38-126); Anion Gap 10 mmol/L; Blood Urea Nitrogen 12 mg/dL (7-17); Calcium 9.8 mg/dL (8.4-10.2); Carbon Dioxide 27 mmol/L (22-30); Chloride 106 mmol/L (98-107); Glucose 98 mg/dL (74-99); Magnesium 1.9 mg/dL (1.6-2.3); Non-African American GFR(MDRD) 59 (>60 ml/min/1.73 sqM); Sodium 143 mmol/L (137-145); Total Bilirubin 0.4 mg/dL (0.2-1.3); Total Protein 7.2 g/dL (6.3-8.2)
[2017-05-14 12:42] LABS: Creatine Kinase 64 U/L (30-135)
[2017-05-14 12:55] LABS: Creatine Kinase MB 1.2 ng/mL (0.0-2.4); Troponin I <0.012 ng/mL (0.000-0.034)
== END 2017-05-14 12:47 | disposition left against medical advice (07) ==
LOC: EC 10:42
DX: I95.1 Orthostatic hypotension (principal); R07.89 Other chest pain; F20.9 Schizophrenia, unspecified; I10 Essential (primary) hypertension; F17.200 Nicotine dependence, unspecified, uncomplicated; Z91.14 Patient's other noncompliance with medication regimen; Z91.041 Radiographic dye allergy status; Z91.040 Latex allergy status; Z88.0 Allergy status to penicillin; Z88.2 Allergy status to sulfonamides; Z88.8 Allergy status to other drugs, medicaments and biological substances; Z53.29 Procedure and treatment not carried out because of patient's decision for other reasons; Z79.899 Other long term (current) drug therapy
CPT/HCPCS: 36415; 71020; 80053; 82550; 82553; 83735; 84484; 85025; 85610; 85730; 93005; 99285

== ENCOUNTER 2017-05-15 04:10 | Emergency (ER) | payer MEDICARE, OTHER ==
[2017-05-15 04:15] VITALS: TEMP 98.4
[2017-05-15] MEDS ORDERED: cloNIDine HCL 0.1 MG TAB PO STA (04:29)
[2017-05-15 05:56] VITALS: BP 166/73; PULSE 78; RESP 16
--- NOTE | 2017-06-16 08:41 | ED ---
General Adult HPI - General Chief complaint: Recheck/Abnormal Lab/Rx Stated complaint: high bp Time Seen by Provider: 05/15/17 04:29 Source: patient Mode of arrival: EMS Limitations: no limitations - History of Present Illness Initial comments: This patient is a 51-year-old woman with history of hypertension who presents because she noted that her blood pressure was high. She states that she did not have her usual dose of clonidine. She denies having any symptoms other than the fact that she feels a little anxious. She is not having chest pain, dyspnea, headache or any neurologic symptoms. -: hour(s) Consistency: constant Improves with: none Worsens with: none Associated Symptoms: denies other symptoms Treatments Prior to Arrival: none - Related Data Home Medications Medication Instructions Recorded Confirmed cloNIDine HCL 0.3 mg PO TID 02/11/16 06/13/17 Losartan Potassium [Cozaar] 100 mg PO QAM 03/26/16 06/13/17 fluPHENAZine DECANOATE [Prolixin 50 mg IM MO 02/08/17 06/13/17 Decanoate] Atenolol 25 mg PO DAILY 05/08/17 06/13/17 Allergies Allergy/AdvReac Type Severity Reaction Status Date / Time diphenhydramine Allergy Itching Verified 06/13/17 08:24 [From Benadryl] Iodinated Contrast- Oral and Allergy Rash/Hives Verified 06/13/17 08:24 IV Dye latex Allergy Rash/Hives Verified 06/13/17 08:24 Penicillins Allergy Rash/Hives Verified 06/13/17 08:24 propoxyphene Allergy Unknown Verified 06/13/17 08:24 Quinolones Allergy Rash/Hives Verified 06/13/17 08:24 Sulfa (Sulfonamide Allergy Rash/Hives Verified 06/13/17 08:24 Antibiotics) Review of Systems ROS Statement: Those systems with pertinent positive or pertinent negative responses have been documented in the HPI. ROS Other: All systems not noted in ROS Statement are negative. Respiratory: Denies: cough, dyspnea Cardiovascular: Denies: chest pain, palpitations Gastrointestinal: Denies: abdominal pain Neurological: Denies: headache Psychiatric: Reports: anxiety Past Medical History Past Medical History: Hypertension, Respiratory Disorder, Sleep Apnea/CPAP/BIPAP Additional Past Medical History / Comment(s): head injury in the past History of Any Multi-Drug Resistant Organisms: None Reported Past Surgical History: Section, Heart Catheterization, Uterine Ablation Additional Past Surgical History / Comment(s): eye surgery, lithotripsy, OVARIAN CYST REMOVED RIGHT SIDE Past Anesthesia/Blood Transfusion Reactions: No Reported Reaction Past Psychological History: Anxiety, Bipolar, Depression, Schizophrenia Smoking Status: Current some day smoker Past Alcohol Use History: None Reported Past Drug Use History: None Reported - Past Family History Mother Family Medical History: Cancer Father Family Medical History: Unable to Obtain General Exam Limitations: no limitations General appearance: alert, in no apparent distress Head exam: Present: atraumatic, normocephalic Respiratory exam: Present: normal lung sounds bilaterally. Absent: respiratory distress, wheezes, rales, rhonchi, stridor Cardiovascular Exam: Present: regular rate, normal rhythm, normal heart sounds. Absent: systolic murmur, diastolic murmur, rubs, gallop GI/Abdominal exam: Present: soft. Absent: distended, tenderness, guarding, rebound, pulsatile mass Neurological exam: Present: alert, normal gait Skin exam: Present: warm, dry, intact, normal color. Absent: rash Course Vital Signs 05/15/17 05/15/17 04:11 05:56 Temperature 98.4 F 98.4 F Pulse Rate 83 78 Respiratory 18 16 Rate Blood Pressure 198/88 166/73 O2 Sat by Pulse 95 96 Oximetry Disposition Clinical Impression: Hypertension Disposition: Left Against Medical Advice Condition: Undetermined Referrals: Nico Parr MD [Primary Care Provider] - 1-2 days
== END 2017-05-15 06:42 | disposition left against medical advice (07) ==
LOC: EC 04:10
DX: I10 Essential (primary) hypertension (principal); F20.9 Schizophrenia, unspecified; F17.200 Nicotine dependence, unspecified, uncomplicated; Z79.899 Other long term (current) drug therapy; Z88.0 Allergy status to penicillin; Z88.1 Allergy status to other antibiotic agents; Z88.2 Allergy status to sulfonamides; Z88.5 Allergy status to narcotic agent; Z88.8 Allergy status to other drugs, medicaments and biological substances; Z91.040 Latex allergy status; Z91.041 Radiographic dye allergy status; Z95.818 Presence of other cardiac implants and grafts
CPT/HCPCS: 93005; 99284

== ENCOUNTER 2017-05-21 10:09 | Emergency (ER) | payer MEDICARE, OTHER ==
[2017-05-21] MEDS ORDERED: cloNIDine HCL 0.1 MG TAB PO STA (10:16)
--- NOTE | 2017-05-21 10:25 | ED ---
General Adult HPI - General Stated complaint: High Blood Pressure Time Seen by Provider: 05/21/17 10:09 Source: RN notes reviewed - History of Present Illness Initial comments: This is a 51-year-old female presents emergency apartment with multiple previous visits. Her complaint today is that she didn't have any more blood pressure medications she took her blood pressure was mildly elevated she came in. Patient denies any symptoms. Patient denies chest pain palpitations difficulty breathing shortness of breath per patient denies any fever chills or cough. Patient denies any abdominal pain patient denies nausea vomiting or diarrhea. Patient denies headache patient denies numbness weakness. Patient denies lightheadedness dizziness or near syncopal episode. - Related Data Home Medications Medication Instructions Recorded Confirmed cloNIDine HCL 0.3 mg PO TID 02/11/16 05/21/17 Losartan Potassium [Cozaar] 100 mg PO DAILY 03/26/16 05/21/17 Albuterol Sulfate [Proair Hfa] 1 - 2 puff INHALATION RT-Q4H PRN 12/27/16 fluPHENAZine DECANOATE [Prolixin 50 mg IM MO 02/08/17 05/21/17 Decanoate] Atenolol 25 mg PO DAILY 05/08/17 05/21/17 Previous Rx's Medication Instructions Recorded cloNIDine HCL [Catapres] 0.3 mg PO TID #6 tab 05/21/17 Allergies Allergy/AdvReac Type Severity Reaction Status Date / Time Iodinated Contrast- Oral and Allergy Rash/Hives Verified 05/21/17 10:16 IV Dye latex Allergy Rash/Hives Verified 05/21/17 10:16 Penicillins Allergy Rash/Hives Verified 05/21/17 10:16 propoxyphene Allergy Unknown Verified 05/21/17 10:16 Quinolones Allergy Rash/Hives Verified 05/21/17 10:16 Sulfa (Sulfonamide Allergy Rash/Hives Verified 05/21/17 10:16 Antibiotics) Review of Systems ROS Statement: Those systems with pertinent positive or pertinent negative responses have been documented in the HPI. ROS Other: All systems not noted in ROS Statement are negative. Past Medical History Past Medical History: Hypertension, Respiratory Disorder, Sleep Apnea/CPAP/BIPAP Additional Past Medical History / Comment(s): head injury in the past History of Any Multi-Drug Resistant Organisms: None Reported Past Surgical History: Section, Heart Catheterization, Uterine Ablation Additional Past Surgical History / Comment(s): eye surgery, lithotripsy, OVARIAN CYST REMOVED RIGHT SIDE Past Anesthesia/Blood Transfusion Reactions: No Reported Reaction Past Psychological History: Anxiety, Bipolar, Depression, Schizophrenia Smoking Status: Current some day smoker Past Alcohol Use History: None Reported Past Drug Use History: None Reported - Past Family History Mother Family Medical History: Cancer Father Family Medical History: Unable to Obtain General Exam - General Exam Comments Initial Comments: GENERAL: Patient is well-developed and well-nourished. Patient is nontoxic and well- hydrated and is in no acute distress. ENT: Neck is soft and supple. No significant lymphadenopathy is noted. Oropharynx is clear. Moist mucous membranes. Neck has full range of motion without eliciting any pain. EYES: The sclera were anicteric and conjunctiva were pink and moist. Extraocular movements were intact and pupils were equal round and reactive to light. Eyelids were unremarkable. PULMONARY: Unlabored respirations. Good breath sounds bilaterally. No audible rales rhonchi or wheezing was noted. CARDIOVASCULAR: There is a regular rate and rhythm without any murmurs gallops or rubs. ABDOMEN: Soft and nontender with normal bowel sounds. SKIN: She has some excoriations on her arms and neck from her scratching. NEUROLOGIC: Patient is alert and oriented 2. Cranial nerves II through XII are grossly intact. Motor and sensory are also intact. Normal speech, volume and content. Symmetrical smile. MUSCULOSKELETAL: Normal extremities with adequate strength and full range of motion. LYMPHATICS: No significant lymphadenopathy is noted PSYCHIATRIC: Normal psychiatric evaluation. Medical Decision Making - Medical Decision Making EKG shows normal sinus rhythm at 79 bpm AK interval 190 QRS is 90 QT interval 408 QTC is 467. Patient's EKG shows no ST segment elevation or depression or T wave abnormalities are noted. Disposition Clinical Impression: Medication refill, Hypertension Disposition: HOME SELF-CARE Condition: Good Instructions: Hypertension (ED) Prescriptions: cloNIDine HCL [Catapres] 0.3 mg PO TID #6 tab Referrals: Nico Parr MD [Primary Care Provider] - 1-2 days Time of Disposition: 10:24
[2017-05-21 10:55] VITALS: BP 172/81; PULSE 78; RESP 16; TEMP 98.2
== END 2017-05-21 10:30 | disposition home or self-care (01) ==
LOC: EEVIPCON 10:09 → EC 10:09
DX: I10 Essential (primary) hypertension (principal); F20.9 Schizophrenia, unspecified; F17.200 Nicotine dependence, unspecified, uncomplicated; Z91.041 Radiographic dye allergy status; Z91.040 Latex allergy status; Z88.0 Allergy status to penicillin; Z88.2 Allergy status to sulfonamides; Z88.8 Allergy status to other drugs, medicaments and biological substances; Z79.899 Other long term (current) drug therapy
CPT/HCPCS: 93005; 99284

== ENCOUNTER 2017-05-25 18:16 | Emergency (ER) | payer MEDICARE, OTHER ==
--- NOTE | 2017-05-25 18:52 | ED ---
General Adult HPI - General Chief complaint: Chest Pain Time Seen by Provider: 05/25/17 18:37 Source: patient, RN notes reviewed Mode of arrival: wheelchair Limitations: no limitations - History of Present Illness Initial comments: 51-year-old female presents to the emergency department with a chief complaint of cough. Patient states she's had a cough for the last 2 days when she coughs she notices some chest discomfort. Patient states she has little bit of shortness of breath with this as well. Patient states that she felt when she was coughing a little lightheaded as well. Patient states she does not know if she passed out at home or not. She did feel lightheaded while she was coughing. Patient states that this time is a sharp type pain when she coughs to her chest. Patient states that she feels as if she is mildly short of breath with the cough as well. Patient states she hasn't had any sputum production with this. Patient was concerned due to the cough causing pain so she thought that she should be evaluated. Patient does frequently come to the emergency department. Patient states she is still smoking. Patient denies any recent fever, chills, back pain, abdominal pain, nausea vomiting, numbness or tingling, dysuria or hematuria, constipation or diarrhea, headaches or visual changes, or any other current symptoms. - Related Data Home Medications Medication Instructions Recorded Confirmed cloNIDine HCL 0.3 mg PO TID 02/11/16 05/25/17 Losartan Potassium [Cozaar] 100 mg PO DAILY 03/26/16 05/25/17 Albuterol Sulfate [Proair Hfa] 1 - 2 puff INHALATION RT-Q4H PRN 12/27/16 fluPHENAZine DECANOATE [Prolixin 50 mg IM MO 02/08/17 05/21/17 Decanoate] Atenolol 25 mg PO DAILY 05/08/17 05/25/17 Previous Rx's Medication Instructions Recorded Azithromycin [Zithromax] 250 mg PO DIRECTED #6 tab 05/25/17 Allergies Allergy/AdvReac Type Severity Reaction Status Date / Time diphenhydramine Allergy Itching Verified 05/25/17 18:40 [From Benadryl] Iodinated Contrast- Oral and Allergy Rash/Hives Verified 05/25/17 18:40 IV Dye latex Allergy Rash/Hives Verified 05/25/17 18:40 Penicillins Allergy Rash/Hives Verified 05/25/17 18:40 propoxyphene Allergy Unknown Verified 05/25/17 18:40 Quinolones Allergy Rash/Hives Verified 05/25/17 18:40 Sulfa (Sulfonamide Allergy Rash/Hives Verified 05/25/17 18:40 Antibiotics) Review of Systems ROS Statement: Those systems with pertinent positive or pertinent negative responses have been documented in the HPI. ROS Other: All systems not noted in ROS Statement are negative. Past Medical History Past Medical History: Hypertension, Respiratory Disorder, Sleep Apnea/CPAP/BIPAP Additional Past Medical History / Comment(s): head injury in the past History of Any Multi-Drug Resistant Organisms: None Reported Past Surgical History: Section, Heart Catheterization, Uterine Ablation Additional Past Surgical History / Comment(s): eye surgery, lithotripsy, OVARIAN CYST REMOVED RIGHT SIDE Past Anesthesia/Blood Transfusion Reactions: No Reported Reaction Past Psychological History: Anxiety, Bipolar, Depression, Schizophrenia Smoking Status: Current some day smoker Past Alcohol Use History: None Reported Past Drug Use History: None Reported - Past Family History Mother Family Medical History: Cancer Father Family Medical History: Unable to Obtain General Exam Limitations: no limitations General appearance: alert, in no apparent distress ENT exam: Present: normal exam, mucous membranes moist Neck exam: Present: normal inspection. Absent: tenderness, meningismus, lymphadenopathy Respiratory exam: Present: normal lung sounds bilaterally. Absent: respiratory distress, wheezes, rales, rhonchi, stridor Cardiovascular Exam: Present: regular rate, normal rhythm, normal heart sounds. Absent: systolic murmur, diastolic murmur, rubs, gallop, clicks Neurological exam: Present: alert, oriented X3 Psychiatric exam: Present: normal affect, normal mood Skin exam: Present: warm, dry, intact, normal color. Absent: rash Course Vital Signs 05/25/17 05/25/17 18:28 18:43 Temperature 98.1 F Pulse Rate 77 69 Respiratory 20 20 Rate Blood Pressure 195/93 167/86 O2 Sat by Pulse 99 98 Oximetry EKG Findings - EKG Comments: EKG Findings:: normal sinus rhythm 71 bpm, normal axis, no atopy, no S-T depressions or elevations, Medical Decision Making - Medical Decision Making 51-year-old female presents emergency room chief complaint of cough that is causing her to have some chest discomfort and shortness of breath. She states that the cough seems to make her symptoms worse and she even had some lightheadedness when she was coughing episode today. Patient's chest x-ray shows pneumonia EKG is negative. This and we discussed follow-up with her doctor we discussed return parameters all the patient's questions. She stated that she understood and she is again plan. She will be discharged home. - Radiology Data Radiology results: report reviewed, image reviewed Disposition Clinical Impression: Chest wall pain, Right lower lobe pneumonia Disposition: HOME SELF-CARE Condition: Stable Instructions: Costochondritis (ED), Bacterial Pneumonia (ED) Additional Instructions: Please use medication as discussed. Please follow up with family doctor if symptoms have not improved over the next two days. Please return to the emergency room if your symptoms increase or worsen or for any other concerns. Prescriptions: Azithromycin [Zithromax] 250 mg PO DIRECTED #6 tab Referrals: Nico Parr MD [Primary Care Provider] - 1-2 days Time of Disposition: 19:11
--- NOTE | 2017-05-25 19:03 | XR ---
EXAMINATION TYPE: XR chest 2V DATE OF EXAM: 05/25/2017 COMPARISON: 1317 HISTORY: Shortness of breath TECHNIQUE: Frontal and lateral views of the chest are obtained. FINDINGS: Scattered senescent parenchymal changes noted. Hyperinflation compatible with COPD. There is a pulmonary venous congestion. The heart is at the upper limits of normal. No evidence for o vert failure. Mild increased density within the right middle lobe may reflect mild right middle lobe infiltrate. Mediastinal structures are stable and grossly unremarkable. No evidence for hilar prominence. Degenerative changes dorsal spine. IMPRESSION: 1. There is a pulmonary venous congestion. The heart is at the upper limits of normal. No evidence fo r overt failure. Mild increased density within the right middle lobe may reflect mild right middle lo be infiltrate.
[2017-05-25 19:24] VITALS: BP 168/87; PULSE 68; RESP 18; TEMP 98
== END 2017-05-25 19:20 | disposition home or self-care (01) ==
LOC: EC 18:16
DX: J18.1 Lobar pneumonia, unspecified organism (principal); R07.89 Other chest pain; R42 Dizziness and giddiness; I10 Essential (primary) hypertension; F20.9 Schizophrenia, unspecified; F17.200 Nicotine dependence, unspecified, uncomplicated; Z79.899 Other long term (current) drug therapy; Z88.0 Allergy status to penicillin; Z88.1 Allergy status to other antibiotic agents; Z88.2 Allergy status to sulfonamides; Z88.5 Allergy status to narcotic agent; Z88.8 Allergy status to other drugs, medicaments and biological substances; Z91.040 Latex allergy status; Z91.041 Radiographic dye allergy status
CPT/HCPCS: 71020; 93005; 99285

== ENCOUNTER 2017-05-27 12:55 | Emergency (ER) | payer MEDICARE, OTHER ==
[2017-05-27 13:08] VITALS: TEMP 98.4
--- NOTE | 2017-05-27 13:38 | ED ---
General Adult HPI - General Chief complaint: Recheck/Abnormal Lab/Rx Stated complaint: Hypertension Time Seen by Provider: 05/27/17 13:05 Source: patient, EMS, RN notes reviewed, old records reviewed, Caregiver Mode of arrival: EMS Limitations: no limitations - History of Present Illness Initial comments: 51-year-old female well-known to this emergency department presents for evaluation of hypertension. Patient did take her blood pressure at home and states that it was 2 or 30/130. She did not receive her antihypertensive medications which include Norvasc losartan and 0.3 of clonidine. She normally takes his medications in the morning, there are delivered to her by a surface. The cervix was late this morning and did not deliver medications Toprol once time. Patient also is complaining that she does not have food at home. Her bridge cart ran out of money and she will not have additional money for food until later in this week. Patient has no pain complaints. She was recently diagnosed with pneumonia and is planning on having her prescription filled on Monday. She states her cough is improving. Denies fever. Denies chest pain or shortness of breath. Patient's main complaint is elevated blood pressure, and being hungry. - Related Data Home Medications Medication Instructions Recorded Confirmed cloNIDine HCL 0.3 mg PO TID 02/11/16 05/25/17 Losartan Potassium [Cozaar] 100 mg PO DAILY 03/26/16 05/25/17 Albuterol Sulfate [Proair Hfa] 1 - 2 puff INHALATION RT-Q4H PRN 12/27/16 fluPHENAZine DECANOATE [Prolixin 50 mg IM MO 02/08/17 05/21/17 Decanoate] Atenolol 25 mg PO DAILY 05/08/17 05/25/17 Previous Rx's Medication Instructions Recorded Azithromycin [Zithromax] 250 mg PO DIRECTED #6 tab 05/25/17 Allergies Allergy/AdvReac Type Severity Reaction Status Date / Time diphenhydramine Allergy Itching Verified 05/25/17 18:40 [From Benadryl] Iodinated Contrast- Oral and Allergy Rash/Hives Verified 05/25/17 18:40 IV Dye latex Allergy Rash/Hives Verified 05/25/17 18:40 Penicillins Allergy Rash/Hives Verified 05/25/17 18:40 propoxyphene Allergy Unknown Verified 05/25/17 18:40 Quinolones Allergy Rash/Hives Verified 05/25/17 18:40 Sulfa (Sulfonamide Allergy Rash/Hives Verified 05/25/17 18:40 Antibiotics) Review of Systems ROS Statement: Those systems with pertinent positive or pertinent negative responses have been documented in the HPI. ROS Other: All systems not noted in ROS Statement are negative. Past Medical History Past Medical History: Hypertension, Respiratory Disorder, Sleep Apnea/CPAP/BIPAP Additional Past Medical History / Comment(s): head injury in the past History of Any Multi-Drug Resistant Organisms: None Reported Past Surgical History: Section, Heart Catheterization, Uterine Ablation Additional Past Surgical History / Comment(s): eye surgery, lithotripsy, OVARIAN CYST REMOVED RIGHT SIDE Past Anesthesia/Blood Transfusion Reactions: No Reported Reaction Past Psychological History: Anxiety, Bipolar, Depression, Schizophrenia Smoking Status: Current some day smoker Past Alcohol Use History: None Reported Past Drug Use History: None Reported - Past Family History Mother Family Medical History: Cancer Father Family Medical History: Unable to Obtain General Exam Limitations: no limitations General appearance: alert, in no apparent distress Head exam: Present: atraumatic, normocephalic Eye exam: Present: normal appearance, PERRL ENT exam: Present: normal exam, mucous membranes moist Neck exam: Present: normal inspection, full ROM. Absent: tenderness, meningismus Respiratory exam: Present: normal lung sounds bilaterally. Absent: respiratory distress, wheezes, rales Cardiovascular Exam: Present: regular rate, normal rhythm GI/Abdominal exam: Present: soft. Absent: distended, tenderness Extremities exam: Present: normal capillary refill, pedal edema (Trace). Absent : calf tenderness Back exam: Present: normal inspection, full ROM Neurological exam: Present: alert, oriented X3, CN II-XII intact. Absent: motor sensory deficit Psychiatric exam: Present: flat affect. Absent: depressed Skin exam: Present: warm, dry, intact. Absent: cyanosis, diaphoretic Course Vital Signs 05/27/17 12:59 Temperature 98.4 F Pulse Rate 93 Respiratory 20 Rate Blood Pressure 184/87 O2 Sat by Pulse 97 Oximetry Medical Decision Making - Medical Decision Making 51-year-old female presenting for evaluation of hypertension and lack of food at home. Patient's blood pressure medication was delivered late to her this afternoon she'll retake 60s in the morning. Blood pressure is initially elevated but down trending. Patient has no complaint headache, no chest pain, no abdominal pain. After reassurance about her blood pressure, she does state she has no food at home. Her guardian and called emergency department stating that she is not to be given food while in the emergency department as last time she was here she had a sandwich and as soon as she got home stated that she received food poisoning from our institution. She is well known to this department are there is no acute distress, physical exam is unremarkable. Nursing staff does contact the guardian letting her know that the patient's medications were delivered late and also that she is out of food. These issues will be handled by the guardian. Diagnosis: Chronic hypertension Disposition Clinical Impression: Chronic hypertension Disposition: HOME SELF-CARE Condition: Good Referrals: Nico Parr MD [Primary Care Provider] - 1-2 days Time of Disposition: 13:38
[2017-05-27 14:04] VITALS: BP 135/77; PULSE 73; RESP 16
== END 2017-05-27 14:20 | disposition home or self-care (01) ==
LOC: EC 12:55
DX: I10 Essential (primary) hypertension (principal); R05 Cough; F31.9 Bipolar disorder, unspecified; F41.9 Anxiety disorder, unspecified; F20.9 Schizophrenia, unspecified; F17.200 Nicotine dependence, unspecified, uncomplicated; Z79.899 Other long term (current) drug therapy; Z91.041 Radiographic dye allergy status; Z91.040 Latex allergy status; Z88.0 Allergy status to penicillin; Z88.2 Allergy status to sulfonamides; Z88.1 Allergy status to other antibiotic agents; Z88.8 Allergy status to other drugs, medicaments and biological substances
CPT/HCPCS: 99284

== ENCOUNTER 2017-05-31 07:12 | Emergency (ER) | payer MEDICARE, OTHER ==
[2017-05-31 07:19] VITALS: BP 191/102; PULSE 98; RESP 16; TEMP 97.8
[2017-05-31] MEDS ORDERED: LOSARTAN 50 MG TAB PO STA (07:39)
[2017-05-31] MEDS ORDERED: cloNIDine HCL 0.1 MG TAB PO STA (07:40)
--- NOTE | 2017-05-31 07:43 | ED ---
Recheck HPI - General Chief Complaint: Recheck/Abnormal Lab/Rx Stated Complaint: Hypertension Time Seen by Provider: 05/31/17 07:12 Source: patient, RN notes reviewed, old records reviewed Mode of arrival: EMS Limitations: no limitations - History of Present Illness Initial Comments: This is a 51-year-old female history of hypertension and noncompliance as well as tobacco abuse and other substance abuse who presents by EMS this way because her blood pressure is elevated. She states she did not get her medications yet this morning and early takes them in the morning. She states the act team brings him to her and didn't bring them yet. She has no headache dizziness blurry vision nausea vomiting chest pain or other symptoms to report. She does smoke she states she can't stop and advise in the past about smoking and admits risks. We did have another discussion this morning regarding this lasted 3.1 minutes. - Related Data Home Medications Medication Instructions Recorded Confirmed cloNIDine HCL 0.3 mg PO TID 02/11/16 05/31/17 Losartan Potassium [Cozaar] 100 mg PO QAM 03/26/16 05/31/17 fluPHENAZine DECANOATE [Prolixin 50 mg IM MO 02/08/17 05/31/17 Decanoate] Atenolol 25 mg PO DAILY 05/08/17 05/31/17 Allergies Allergy/AdvReac Type Severity Reaction Status Date / Time diphenhydramine Allergy Itching Verified 05/31/17 07:40 [From Benadryl] Iodinated Contrast- Oral and Allergy Rash/Hives Verified 05/31/17 07:40 IV Dye latex Allergy Rash/Hives Verified 05/31/17 07:40 Penicillins Allergy Rash/Hives Verified 05/31/17 07:40 propoxyphene Allergy Unknown Verified 05/31/17 07:40 Quinolones Allergy Rash/Hives Verified 05/31/17 07:40 Sulfa (Sulfonamide Allergy Rash/Hives Verified 05/31/17 07:40 Antibiotics) Review of Systems ROS Statement: Those systems with pertinent positive or pertinent negative responses have been documented in the HPI. ROS Other: All systems not noted in ROS Statement are negative. Past Medical History Past Medical History: Hypertension, Respiratory Disorder, Sleep Apnea/CPAP/BIPAP Additional Past Medical History / Comment(s): head injury in the past History of Any Multi-Drug Resistant Organisms: None Reported Past Surgical History: Section, Heart Catheterization, Uterine Ablation Additional Past Surgical History / Comment(s): eye surgery, lithotripsy, OVARIAN CYST REMOVED RIGHT SIDE Past Anesthesia/Blood Transfusion Reactions: No Reported Reaction Past Psychological History: Anxiety, Bipolar, Depression, Schizophrenia Smoking Status: Current some day smoker Past Alcohol Use History: None Reported Past Drug Use History: None Reported - Past Family History Mother Family Medical History: Cancer Father Family Medical History: Unable to Obtain General Exam - General Exam Comments Initial Comments: This is a well-developed well-nourished awake alert oriented 3 female she does have the smell of tobacco on her person. Limitations: no limitations General appearance: alert, in no apparent distress Head exam: Present: atraumatic, normocephalic, normal inspection Eye exam: Present: normal appearance, PERRL, EOMI. Absent: scleral icterus, conjunctival injection, periorbital swelling ENT exam: Present: normal exam, mucous membranes moist Neck exam: Present: normal inspection. Absent: tenderness, meningismus, lymphadenopathy Respiratory exam: Present: normal lung sounds bilaterally. Absent: respiratory distress, wheezes, rales, rhonchi, stridor Cardiovascular Exam: Present: regular rate, normal rhythm, normal heart sounds. Absent: systolic murmur, diastolic murmur, rubs, gallop, clicks GI/Abdominal exam: Absent: distended, tenderness, guarding, rebound, rigid Extremities exam: Present: normal inspection, full ROM, normal capillary refill. Absent: tenderness, pedal edema, joint swelling, calf tenderness Back exam: Present: normal inspection Neurological exam: Present: alert, oriented X3, CN II-XII intact Psychiatric exam: Present: normal affect (She does demonstrate her usual flat affect.), normal mood, flat affect Skin exam: Present: warm, dry, intact, normal color. Absent: rash Course Vital Signs 05/31/17 07:15 Temperature 97.8 F Pulse Rate 98 Respiratory 16 Rate Blood Pressure 191/102 O2 Sat by Pulse 95 Oximetry Medical Decision Making - Medical Decision Making No further workup is indicated at this time. Patient will receive her morning dose of medications and be discharged with follow-up with her physician or return when necessary Disposition Clinical Impression: Hypertension, Tobacco abuse Disposition: HOME SELF-CARE Condition: Good Instructions: Heart Healthy Diet (ED), Low Sodium Diet (ED), DASH Eating Plan ( ED), Chronic Hypertension (ED), How to Stop Smoking (ED) Referrals: Nico Parr MD [Primary Care Provider] - 1-2 days
[2017-05-31] MEDS: ATENOLOL 25 MG TAB PO STA ×2 (07:53)
[2017-05-31] MEDS ORDERED: amLODIPine 5 MG TAB PO STA (08:00)
== END 2017-05-31 08:06 | disposition home or self-care (01) ==
LOC: EC 07:12
DX: I10 Essential (primary) hypertension (principal); F31.9 Bipolar disorder, unspecified; F41.9 Anxiety disorder, unspecified; F20.9 Schizophrenia, unspecified; F17.200 Nicotine dependence, unspecified, uncomplicated; Z79.899 Other long term (current) drug therapy; Z88.0 Allergy status to penicillin; Z88.1 Allergy status to other antibiotic agents; Z88.2 Allergy status to sulfonamides; Z88.8 Allergy status to other drugs, medicaments and biological substances; Z91.040 Latex allergy status; Z91.041 Radiographic dye allergy status
CPT/HCPCS: 99284

== ENCOUNTER 2017-06-05 09:09 | Emergency (ER) | payer MEDICARE, OTHER ==
[2017-06-05] MEDS ORDERED: cloNIDine HCL 0.1 MG TAB PO STA (09:36)
[2017-06-05 09:41] VITALS: BP 192/88; PULSE 86; RESP 18; TEMP 98.3
--- NOTE | 2017-06-05 09:59 | ED ---
General Adult HPI - General Chief complaint: Recheck/Abnormal Lab/Rx Stated complaint: HTN Time Seen by Provider: 06/05/17 09:18 Source: patient, RN notes reviewed, old records reviewed Mode of arrival: EMS Limitations: no limitations - History of Present Illness Initial comments: Patient is a 51-year-old female who is well-known to the emergency room who presents today by EMS with a chief complaint of an elevated blood pressure. She states that the ACT team comes to give her medication. States they will not be there until approximately 11-12 AM this morning. She states that they give her blood pressure medication. She did check her blood pressure was elevated she says it was greater than 200/100. She states no other complaints or symptoms at this time. Patient denies any recent fever, chills, shortness of breath, chest pain, back pain, abdominal pain, nausea or vomiting, numbness or tingling, dysuria or hematuria, constipation or diarrhea, headaches or visual changes, or any other complaints. - Related Data Home Medications Medication Instructions Recorded Confirmed cloNIDine HCL 0.3 mg PO TID 02/11/16 06/05/17 Losartan Potassium [Cozaar] 100 mg PO QAM 03/26/16 06/05/17 fluPHENAZine DECANOATE [Prolixin 50 mg IM MO 02/08/17 06/05/17 Decanoate] Atenolol 25 mg PO DAILY 05/08/17 06/05/17 Allergies Allergy/AdvReac Type Severity Reaction Status Date / Time diphenhydramine Allergy Itching Verified 06/05/17 09:41 [From Benadryl] Iodinated Contrast- Oral and Allergy Rash/Hives Verified 06/05/17 09:41 IV Dye latex Allergy Rash/Hives Verified 06/05/17 09:41 Penicillins Allergy Rash/Hives Verified 06/05/17 09:41 propoxyphene Allergy Unknown Verified 06/05/17 09:41 Quinolones Allergy Rash/Hives Verified 06/05/17 09:41 Sulfa (Sulfonamide Allergy Rash/Hives Verified 06/05/17 09:41 Antibiotics) Review of Systems ROS Statement: Those systems with pertinent positive or pertinent negative responses have been documented in the HPI. ROS Other: All systems not noted in ROS Statement are negative. Past Medical History Past Medical History: Hypertension, Respiratory Disorder, Sleep Apnea/CPAP/BIPAP Additional Past Medical History / Comment(s): head injury in the past History of Any Multi-Drug Resistant Organisms: None Reported Past Surgical History: Section, Heart Catheterization, Uterine Ablation Additional Past Surgical History / Comment(s): eye surgery, lithotripsy, OVARIAN CYST REMOVED RIGHT SIDE Past Anesthesia/Blood Transfusion Reactions: No Reported Reaction Past Psychological History: Anxiety, Bipolar, Depression, Schizophrenia Smoking Status: Current some day smoker Past Alcohol Use History: None Reported Past Drug Use History: None Reported - Past Family History Mother Family Medical History: Cancer Father Family Medical History: Unable to Obtain General Exam - General Exam Comments Initial Comments: General: The patient is awake and alert, in no distress, and does not appear acutely ill. Eye: Pupils are equal, round and reactive to light, extra-ocular movements are intact. No nystagmus. There is normal conjunctiva bilaterally. No signs of icterus. Ears, nose, mouth and throat: There are moist mucous membranes and no oral lesions. Neck: The neck is supple, there is no tenderness or JVD. Cardiovascular: There is a regular rate and rhythm. No murmur, rub or gallop is appreciated. Respiratory: Lungs are clear to auscultation, respirations are non-labored, breath sounds are equal. No wheezes, stridor, rales, or rhonchi. Gastrointestinal: Soft, non-distended, non-tender abdomen without masses or organomegaly noted. There is no rebound or guarding present. No CVA tenderness. Bowel sounds are unremarkable. Musculoskeletal: Normal ROM, no tenderness. Strength 5/5. Sensation intact. Pulses equal bilaterally 2+. Neurological: A&O x 3. CN II-XII intact, There are no obvious motor or sensory deficits. Coordination appears grossly intact. Speech is normal. Skin: She does have small rash to the left and right forearm. Psychiatric: Cooperative, appropriate mood & affect, normal judgment. Limitations: no limitations Course Vital Signs 06/05/17 09:18 Temperature 98.3 F Pulse Rate 86 Respiratory 18 Rate Blood Pressure 192/88 O2 Sat by Pulse 98 Oximetry Medical Decision Making - Medical Decision Making Nursing staff did attempt to call patient's ACT team. Patient given her clonidine here in the emergency room. Patient asymptomatic otherwise. Will be discharged home. She does have a rash to the left and right forearm. Disposition Clinical Impression: HTN (hypertension) Disposition: HOME SELF-CARE Condition: Good Instructions: Chronic Hypertension (ED) Additional Instructions: Please follow-up with theACT team for the rest of your medications. Please follow-up with family doctor in the next 2 days of symptoms have not improved. Please return to emergency room if the symptoms increase or worsen or for any other concerns. Referrals: Nico Parr MD [Primary Care Provider] - 1-2 days Time of Disposition: 09:59
== END 2017-06-05 10:38 | disposition home or self-care (01) ==
LOC: EC 09:09
DX: I10 Essential (primary) hypertension (principal); F20.9 Schizophrenia, unspecified; F17.200 Nicotine dependence, unspecified, uncomplicated; Z91.041 Radiographic dye allergy status; Z91.040 Latex allergy status; Z88.0 Allergy status to penicillin; Z88.2 Allergy status to sulfonamides; Z88.8 Allergy status to other drugs, medicaments and biological substances; Z79.899 Other long term (current) drug therapy
CPT/HCPCS: 99283

== ENCOUNTER 2017-06-08 05:59 | Emergency (ER) | payer MEDICARE, OTHER ==
[2017-06-08] MEDS ORDERED: cloNIDine HCL 0.1 MG TAB PO STA (06:12)
[2017-06-08 06:13] VITALS: TEMP 97.9
[2017-06-08 06:51] VITALS: BP 190/86; PULSE 70; RESP 16
--- NOTE | 2017-06-08 06:51 | ED ---
Recheck HPI - General Chief Complaint: Recheck/Abnormal Lab/Rx Stated Complaint: chest pain Time Seen by Provider: 06/08/17 06:50 Source: patient Mode of arrival: ambulatory Limitations: no limitations - History of Present Illness Initial Comments: This patient is a 51-year-old woman with history of hypertension who complains that her blood pressure was elevated this morning. Patient states that she knows this because she is feeling a little bit jittery and states that shows feels this way when her blood pressure is high. Patient denies headache, change in vision, chest pain, dyspnea, palpitations or other symptoms. She states that she has not taken the clonidine that she usually takes. Complaint: other -: hour(s) Symptoms Since Prior Visit: no new symptoms Associated Symptoms: none - Related Data Home Medications Medication Instructions Recorded Confirmed cloNIDine HCL 0.3 mg PO TID 02/11/16 06/05/17 Losartan Potassium [Cozaar] 100 mg PO QAM 03/26/16 06/05/17 fluPHENAZine DECANOATE [Prolixin 50 mg IM MO 02/08/17 06/05/17 Decanoate] Atenolol 25 mg PO DAILY 05/08/17 06/05/17 Allergies Allergy/AdvReac Type Severity Reaction Status Date / Time diphenhydramine Allergy Itching Verified 06/05/17 09:41 [From Benadryl] Iodinated Contrast- Oral and Allergy Rash/Hives Verified 06/05/17 09:41 IV Dye latex Allergy Rash/Hives Verified 06/05/17 09:41 Penicillins Allergy Rash/Hives Verified 06/05/17 09:41 propoxyphene Allergy Unknown Verified 06/05/17 09:41 Quinolones Allergy Rash/Hives Verified 06/05/17 09:41 Sulfa (Sulfonamide Allergy Rash/Hives Verified 06/05/17 09:41 Antibiotics) Review of Systems ROS Statement: Those systems with pertinent positive or pertinent negative responses have been documented in the HPI. ROS Other: All systems not noted in ROS Statement are negative. Constitutional: Denies: fever Respiratory: Denies: cough, dyspnea Cardiovascular: Denies: chest pain, palpitations, orthopnea, edema Gastrointestinal: Denies: abdominal pain, vomiting, diarrhea Genitourinary: Denies: dysuria, hematuria Musculoskeletal: Denies: back pain Skin: Denies: rash Neurological: Denies: headache, weakness, numbness Past Medical History Past Medical History: Hypertension, Respiratory Disorder, Sleep Apnea/CPAP/BIPAP Additional Past Medical History / Comment(s): head injury in the past History of Any Multi-Drug Resistant Organisms: None Reported Past Surgical History: Section, Heart Catheterization, Uterine Ablation Additional Past Surgical History / Comment(s): eye surgery, lithotripsy, OVARIAN CYST REMOVED RIGHT SIDE Past Anesthesia/Blood Transfusion Reactions: No Reported Reaction Past Psychological History: Anxiety, Bipolar, Depression, Schizophrenia Smoking Status: Current some day smoker Past Alcohol Use History: None Reported Past Drug Use History: None Reported - Past Family History Mother Family Medical History: Cancer Father Family Medical History: Unable to Obtain General Exam Limitations: no limitations General appearance: alert, in no apparent distress Head exam: Present: atraumatic, normocephalic Eye exam: Present: normal appearance Respiratory exam: Present: normal lung sounds bilaterally. Absent: respiratory distress, wheezes, rales, rhonchi, stridor Cardiovascular Exam: Present: regular rate, normal rhythm, normal heart sounds. Absent: systolic murmur, diastolic murmur, rubs, gallop GI/Abdominal exam: Present: soft. Absent: tenderness, guarding, rebound Neurological exam: Present: alert, normal gait Skin exam: Present: warm, dry, intact, normal color. Absent: rash Course Vital Signs 06/08/17 06/08/17 06/08/17 06:11 06:33 06:51 Temperature 97.9 F Pulse Rate 82 71 70 Respiratory 18 18 16 Rate Blood Pressure 205/106 200/93 190/86 O2 Sat by Pulse 94 L 98 100 Oximetry Disposition Clinical Impression: Chronic hypertension Disposition: HOME SELF-CARE Condition: Fair Instructions: Hypertension (ED) Referrals: Nico Parr MD [Primary Care Provider] - 1-2 days
== END 2017-06-08 06:56 | disposition home or self-care (01) ==
LOC: EC 05:59
DX: I10 Essential (primary) hypertension (principal); F20.9 Schizophrenia, unspecified; F31.9 Bipolar disorder, unspecified; F17.200 Nicotine dependence, unspecified, uncomplicated; G47.30 Sleep apnea, unspecified; Z95.5 Presence of coronary angioplasty implant and graft; Z79.899 Other long term (current) drug therapy; Z99.89 Dependence on other enabling machines and devices; Z91.041 Radiographic dye allergy status; Z91.040 Latex allergy status; Z88.0 Allergy status to penicillin; Z88.1 Allergy status to other antibiotic agents; Z88.2 Allergy status to sulfonamides; Z88.8 Allergy status to other drugs, medicaments and biological substances
CPT/HCPCS: 99283; 99284

== ENCOUNTER 2017-06-09 07:10 | Emergency (ER) | payer MEDICARE, OTHER ==
[2017-06-09 07:20] VITALS: TEMP 98.2
[2017-06-09] MEDS ORDERED: cloNIDine HCL 0.1 MG TAB PO STA (07:52)
--- NOTE | 2017-06-09 07:56 | ED ---
General Adult HPI - General Chief complaint: Chest Pain Stated complaint: Hypertension Time Seen by Provider: 06/09/17 07:10 Source: patient, EMS, RN notes reviewed Mode of arrival: EMS - History of Present Illness Initial comments: This is a 51-year-old female who presents emergency Department complaining of her blood pressure being elevated. Patient states she supposed to take her blood pressure medications at 6 AM but the act team does not deliver them until 1011 so she did not take them. Patient states that the puppy why her blood pressures elevated. Patient denies any other complaint. Patient denied any chest pain nursing stated that she mentioned chest pain to them I asked her on 3 different occasions if she had chest pain she denied all 3 times per patient denies shortness of breath or difficulty breathing. Patient denies any palpations. Patient denies headache patient denied numbness weakness. Patient had any recent fever chills or cough. Patient denies abdominal pain patient denies nausea vomiting diarrhea. - Related Data Home Medications Medication Instructions Recorded Confirmed cloNIDine HCL 0.3 mg PO TID 02/11/16 06/09/17 Losartan Potassium [Cozaar] 100 mg PO QAM 03/26/16 06/09/17 fluPHENAZine DECANOATE [Prolixin 50 mg IM MO 02/08/17 06/09/17 Decanoate] Atenolol 25 mg PO DAILY 05/08/17 06/09/17 Allergies Allergy/AdvReac Type Severity Reaction Status Date / Time diphenhydramine Allergy Itching Verified 06/09/17 07:34 [From Benadryl] Iodinated Contrast- Oral and Allergy Rash/Hives Verified 06/09/17 07:34 IV Dye latex Allergy Rash/Hives Verified 06/09/17 07:34 Penicillins Allergy Rash/Hives Verified 06/09/17 07:34 propoxyphene Allergy Unknown Verified 06/09/17 07:34 Quinolones Allergy Rash/Hives Verified 06/09/17 07:34 Sulfa (Sulfonamide Allergy Rash/Hives Verified 06/09/17 07:34 Antibiotics) Review of Systems ROS Statement: Those systems with pertinent positive or pertinent negative responses have been documented in the HPI. ROS Other: All systems not noted in ROS Statement are negative. Past Medical History Past Medical History: Hypertension, Respiratory Disorder, Sleep Apnea/CPAP/BIPAP Additional Past Medical History / Comment(s): head injury in the past History of Any Multi-Drug Resistant Organisms: None Reported Past Surgical History: Section, Heart Catheterization, Uterine Ablation Additional Past Surgical History / Comment(s): eye surgery, lithotripsy, OVARIAN CYST REMOVED RIGHT SIDE Past Anesthesia/Blood Transfusion Reactions: No Reported Reaction Past Psychological History: Anxiety, Bipolar, Depression, Schizophrenia Smoking Status: Current every day smoker Past Alcohol Use History: None Reported Past Drug Use History: None Reported - Past Family History Mother Family Medical History: Cancer Father Family Medical History: Unable to Obtain General Exam - General Exam Comments Initial Comments: GENERAL: Patient is well-developed and well-nourished. Patient is nontoxic and well- hydrated and is in mild distress. ENT: Neck is soft and supple. No significant lymphadenopathy is noted. Oropharynx is clear. Moist mucous membranes. Neck has full range of motion without eliciting any pain. EYES: The sclera were anicteric and conjunctiva were pink and moist. Extraocular movements were intact and pupils were equal round and reactive to light. Eyelids were unremarkable. PULMONARY: Unlabored respirations. Good breath sounds bilaterally. No audible rales rhonchi or wheezing was noted. CARDIOVASCULAR: There is a regular rate and rhythm without any murmurs gallops or rubs. ABDOMEN: Soft and nontender with normal bowel sounds. No palpable organomegaly was noted. There is no palpable pulsatile mass. SKIN: Patient has a lot of areas of excoriated skin which appears to be from her itching when I asked her that she stated yes that is what it is from. NEUROLOGIC: Patient is alert and oriented x3. Cranial nerves II through XII are grossly intact. Motor and sensory are also intact. Normal speech, volume and content. Symmetrical smile. MUSCULOSKELETAL: Normal extremities with adequate strength and full range of motion. No lower extremity swelling or edema. No calf tenderness. Course Vital Signs 06/09/17 06/09/17 07:12 07:19 Temperature 98.2 F Pulse Rate 85 Respiratory 18 Rate Blood Pressure 183/87 183/110 O2 Sat by Pulse 97 96 Oximetry Medical Decision Making - Medical Decision Making EKG shows normal sinus rhythm at 87 bpm DE interval 190 QRS is 84 QT interval 408 QTC is 490. Patient's EKG shows no ST segment elevation or depression or T wave normalities are noted. Disposition Clinical Impression: Hypertension Disposition: HOME SELF-CARE Condition: Good Instructions: Hypertension (ED) Referrals: Nico Parr MD [Primary Care Provider] - 1-2 days Time of Disposition: 07:55
[2017-06-09 08:35] VITALS: BP 184/86; PULSE 84; RESP 20
== END 2017-06-09 08:30 | disposition home or self-care (01) ==
LOC: EC 07:10
DX: I10 Essential (primary) hypertension (principal); F20.9 Schizophrenia, unspecified; F17.200 Nicotine dependence, unspecified, uncomplicated; Z88.0 Allergy status to penicillin; Z88.2 Allergy status to sulfonamides; Z91.041 Radiographic dye allergy status; Z91.040 Latex allergy status; Z88.8 Allergy status to other drugs, medicaments and biological substances; Z79.899 Other long term (current) drug therapy
CPT/HCPCS: 93005; 99285

== ENCOUNTER 2017-06-10 11:54 | Emergency (ER) | payer MEDICARE, OTHER ==
[2017-06-10 12:06] VITALS: BP 215/93; PULSE 94; RESP 16; TEMP 98.2
[2017-06-10] MEDS ORDERED: cloNIDine HCL 0.1 MG TAB PO STA (12:20)
[2017-06-10] MEDS ORDERED: ATENOLOL 25 MG TAB PO STA (12:21)
[2017-06-10] MEDS ORDERED: LOSARTAN 50 MG TAB PO STA (12:21)
--- NOTE | 2017-06-10 12:34 | ED ---
General Adult HPI - General Chief complaint: Recheck/Abnormal Lab/Rx Stated complaint: Hypertension Time Seen by Provider: 06/10/17 11:54 Source: patient, EMS, RN notes reviewed, old records reviewed Mode of arrival: EMS Limitations: no limitations - History of Present Illness Initial comments: This is a 51-year-old female with a history of hypertension and chronic tobacco abuse who is here for another visit for complaints of elevated blood pressure. She called 911 and was brought in for evaluation she denies any shortness of breath fevers chills nausea vomiting sweats. This is her usual presentation she states is nothing different today than her usual presentation. She states they did not bring her medication when in fact the act team was try to contact her so they could bring her medication. - Related Data Home Medications Medication Instructions Recorded Confirmed cloNIDine HCL 0.3 mg PO TID 02/11/16 06/10/17 Losartan Potassium [Cozaar] 100 mg PO QAM 03/26/16 06/10/17 fluPHENAZine DECANOATE [Prolixin 50 mg IM MO 02/08/17 06/10/17 Decanoate] Atenolol 25 mg PO DAILY 05/08/17 06/10/17 Allergies Allergy/AdvReac Type Severity Reaction Status Date / Time diphenhydramine Allergy Itching Verified 06/10/17 12:03 [From Benadryl] Iodinated Contrast- Oral and Allergy Rash/Hives Verified 06/10/17 12:03 IV Dye latex Allergy Rash/Hives Verified 06/10/17 12:03 Penicillins Allergy Rash/Hives Verified 06/10/17 12:03 propoxyphene Allergy Unknown Verified 06/10/17 12:03 Quinolones Allergy Rash/Hives Verified 06/10/17 12:03 Sulfa (Sulfonamide Allergy Rash/Hives Verified 06/10/17 12:03 Antibiotics) Review of Systems ROS Statement: Those systems with pertinent positive or pertinent negative responses have been documented in the HPI. ROS Other: All systems not noted in ROS Statement are negative. Past Medical History Past Medical History: Hypertension, Respiratory Disorder, Sleep Apnea/CPAP/BIPAP Additional Past Medical History / Comment(s): head injury in the past History of Any Multi-Drug Resistant Organisms: None Reported Past Surgical History: Section, Heart Catheterization, Uterine Ablation Additional Past Surgical History / Comment(s): eye surgery, lithotripsy, OVARIAN CYST REMOVED RIGHT SIDE Past Anesthesia/Blood Transfusion Reactions: No Reported Reaction Past Psychological History: Anxiety, Bipolar, Depression, Schizophrenia Smoking Status: Current every day smoker Past Alcohol Use History: None Reported Past Drug Use History: None Reported - Past Family History Mother Family Medical History: Cancer Father Family Medical History: Unable to Obtain General Exam Limitations: no limitations General appearance: alert, in no apparent distress Head exam: Present: atraumatic, normocephalic, normal inspection Eye exam: Present: normal appearance, PERRL, EOMI. Absent: scleral icterus, conjunctival injection, periorbital swelling ENT exam: Present: normal exam, mucous membranes moist Neck exam: Present: normal inspection. Absent: tenderness, meningismus, lymphadenopathy Respiratory exam: Present: normal lung sounds bilaterally. Absent: respiratory distress, wheezes, rales, rhonchi, stridor Cardiovascular Exam: Present: regular rate, normal rhythm, normal heart sounds. Absent: systolic murmur, diastolic murmur, rubs, gallop, clicks GI/Abdominal exam: Absent: distended, tenderness, guarding, rebound, rigid Extremities exam: Present: normal inspection, full ROM, normal capillary refill. Absent: tenderness, pedal edema, joint swelling, calf tenderness Back exam: Present: normal inspection Neurological exam: Present: alert, oriented X3, CN II-XII intact Psychiatric exam: Present: normal mood, flat affect Skin exam: Present: warm, dry, intact, normal color. Absent: rash Course Vital Signs 06/10/17 12:03 Temperature 98.2 F Pulse Rate 94 Respiratory 16 Rate Blood Pressure 215/93 O2 Sat by Pulse 97 Oximetry - Reevaluation(s) Reevaluation #1: 06/10/17 12:32 We did again discuss smoking cessation and the risks and benefits thereof. Conversation totally lasted 3.1 minutes Medical Decision Making - Medical Decision Making Patient presents with her typical complaint in will be discharged after getting her oral medication the emergency department. The act team was made aware of this. Disposition Clinical Impression: Hypertension, Tobacco abuse Disposition: HOME SELF-CARE Condition: Good Instructions: Hypertension (ED), How to Stop Smoking (ED) Referrals: Nico Parr MD [Primary Care Provider] - 1-2 days
== END 2017-06-10 12:45 | disposition home or self-care (01) ==
LOC: EC 11:54
DX: I10 Essential (primary) hypertension (principal); F20.9 Schizophrenia, unspecified; F17.200 Nicotine dependence, unspecified, uncomplicated; Z79.899 Other long term (current) drug therapy; Z88.0 Allergy status to penicillin; Z88.1 Allergy status to other antibiotic agents; Z88.2 Allergy status to sulfonamides; Z88.5 Allergy status to narcotic agent; Z88.8 Allergy status to other drugs, medicaments and biological substances; Z91.040 Latex allergy status; Z91.041 Radiographic dye allergy status; Z95.818 Presence of other cardiac implants and grafts
CPT/HCPCS: 99283

== ENCOUNTER 2017-06-10 16:06 | Emergency (ER) | payer MEDICARE, OTHER ==
[2017-06-10 16:24] VITALS: RESP 20; TEMP 98.3
[2017-06-10 16:25] VITALS: BP 175/85; PULSE 80
--- NOTE | 2017-06-10 17:00 | ED ---
General Adult HPI - General Chief complaint: Recheck/Abnormal Lab/Rx Stated complaint: HTN Time Seen by Provider: 06/10/17 16:41 Source: patient, EMS, RN notes reviewed Mode of arrival: EMS Limitations: no limitations - History of Present Illness Initial comments: This a 51-year-old female well-known emergency department presents today chief complaint hypertension. Patient states that she needs her blood pressure medication which takes clonidine. Patient states she was seen here earlier today for similar problems. Patient is here with act team who has her medications. Patient is dispensed her medications daily. Patient denies any chest pain, shortness breath, fever, chills, headache or dizziness. She does complain of a rash which started over the week. She states it's very itchy she has tried some hydrocortisone cream no relief. Denies any new soaps or lotions or detergents. Denies any new medications. She states that nobody in her household has similar symptoms. - Related Data Home Medications Medication Instructions Recorded Confirmed cloNIDine HCL 0.3 mg PO TID 02/11/16 06/10/17 Losartan Potassium [Cozaar] 100 mg PO QAM 03/26/16 06/10/17 fluPHENAZine DECANOATE [Prolixin 50 mg IM MO 02/08/17 06/10/17 Decanoate] Atenolol 25 mg PO DAILY 05/08/17 06/10/17 Previous Rx's Medication Instructions Recorded Permethrin 5% Cream [Elimite] 1 applic TOPICAL ONCE #60 gram 06/10/17 Allergies Allergy/AdvReac Type Severity Reaction Status Date / Time diphenhydramine Allergy Itching Verified 06/10/17 16:08 [From Benadryl] Iodinated Contrast- Oral and Allergy Rash/Hives Verified 06/10/17 16:08 IV Dye latex Allergy Rash/Hives Verified 06/10/17 16:08 Penicillins Allergy Rash/Hives Verified 06/10/17 16:08 propoxyphene Allergy Unknown Verified 06/10/17 16:08 Quinolones Allergy Rash/Hives Verified 06/10/17 16:08 Sulfa (Sulfonamide Allergy Rash/Hives Verified 06/10/17 16:08 Antibiotics) Review of Systems ROS Statement: Those systems with pertinent positive or pertinent negative responses have been documented in the HPI. ROS Other: All systems not noted in ROS Statement are negative. Past Medical History Past Medical History: Hypertension, Respiratory Disorder, Sleep Apnea/CPAP/BIPAP Additional Past Medical History / Comment(s): head injury in the past History of Any Multi-Drug Resistant Organisms: None Reported Past Surgical History: Section, Heart Catheterization, Uterine Ablation Additional Past Surgical History / Comment(s): eye surgery, lithotripsy, OVARIAN CYST REMOVED RIGHT SIDE Past Anesthesia/Blood Transfusion Reactions: No Reported Reaction Past Psychological History: Anxiety, Bipolar, Depression, Schizophrenia Smoking Status: Current every day smoker Past Alcohol Use History: None Reported Past Drug Use History: None Reported - Past Family History Mother Family Medical History: Cancer Father Family Medical History: Unable to Obtain General Exam Limitations: no limitations General appearance: alert, in no apparent distress Head exam: Present: atraumatic, normocephalic, normal inspection Respiratory exam: Present: normal lung sounds bilaterally. Absent: respiratory distress, wheezes, rales, rhonchi, stridor Cardiovascular Exam: Present: regular rate, normal rhythm, normal heart sounds. Absent: systolic murmur, diastolic murmur, rubs, gallop, clicks Skin exam: Present: warm, dry, intact, normal color, rash (Erythematous macular and slightly papular rash with excoriations diffusely over her extremities primarily upper) Course Vital Signs 06/10/17 06/10/17 16:21 16:24 Temperature 98.3 F Pulse Rate 79 80 Respiratory 20 Rate Blood Pressure 189/107 175/85 O2 Sat by Pulse 99 Oximetry Medical Decision Making - Medical Decision Making 51-year-old female with a history of hypertension and is here for her medications. The erythematous here with [facility] act team who has her medications. Patient we given her medications as prescribed. Patient will be discharge at this time return parameters were discussed. Disposition Clinical Impression: Acute maculopapular rash, Hypertension Disposition: HOME SELF-CARE Condition: Stable Instructions: Hypertension (ED) Additional Instructions: Please return to the Emergency Department if symptoms worsen or any other concerns. Prescriptions: Permethrin 5% Cream [Elimite] 1 applic TOPICAL ONCE #60 gram Referrals: Nico Parr MD [Primary Care Provider] - 1-2 days Time of Disposition: 16:59
== END 2017-06-10 17:05 | disposition home or self-care (01) ==
LOC: EC 16:06
DX: I10 Essential (primary) hypertension (principal); R21 Rash and other nonspecific skin eruption; F17.200 Nicotine dependence, unspecified, uncomplicated; F20.9 Schizophrenia, unspecified; G47.30 Sleep apnea, unspecified; Z99.89 Dependence on other enabling machines and devices; Z95.5 Presence of coronary angioplasty implant and graft; Z79.899 Other long term (current) drug therapy; Z88.0 Allergy status to penicillin; Z88.1 Allergy status to other antibiotic agents; Z88.2 Allergy status to sulfonamides; Z88.8 Allergy status to other drugs, medicaments and biological substances; Z91.040 Latex allergy status; Z91.041 Radiographic dye allergy status
CPT/HCPCS: 99283

== ENCOUNTER 2017-06-13 00:50 | Emergency (ER) | payer MEDICARE, OTHER ==
--- NOTE | 2017-06-13 00:52 | ED ---
General Adult HPI - General Stated complaint: ABNORMAL LABS Time Seen by Provider: 06/13/17 00:51 Source: patient, EMS, RN notes reviewed Mode of arrival: EMS Limitations: no limitations - History of Present Illness Initial comments: Is a 51-year-old female presents emergency department via EMS for hypertension. Patient states she needs her clonidine dose she was given all of her doses today by [facility]. Patient denies any chest pain, headache, dizziness, nausea, vomiting diarrhea constipation. Patient states that she believes her blood pressure is too high. Patient denies any physical complaints at this time. - Related Data Home Medications Medication Instructions Recorded Confirmed cloNIDine HCL 0.3 mg PO TID 02/11/16 06/10/17 Losartan Potassium [Cozaar] 100 mg PO QAM 03/26/16 06/10/17 fluPHENAZine DECANOATE [Prolixin 50 mg IM MO 02/08/17 06/10/17 Decanoate] Atenolol 25 mg PO DAILY 05/08/17 06/10/17 Previous Rx's Medication Instructions Recorded Permethrin 5% Cream [Elimite] 1 applic TOPICAL ONCE #60 gram 06/10/17 Allergies Allergy/AdvReac Type Severity Reaction Status Date / Time diphenhydramine Allergy Itching Verified 06/10/17 16:08 [From Benadryl] Iodinated Contrast- Oral and Allergy Rash/Hives Verified 06/10/17 16:08 IV Dye latex Allergy Rash/Hives Verified 06/10/17 16:08 Penicillins Allergy Rash/Hives Verified 06/10/17 16:08 propoxyphene Allergy Unknown Verified 06/10/17 16:08 Quinolones Allergy Rash/Hives Verified 06/10/17 16:08 Sulfa (Sulfonamide Allergy Rash/Hives Verified 06/10/17 16:08 Antibiotics) Review of Systems ROS Statement: Those systems with pertinent positive or pertinent negative responses have been documented in the HPI. ROS Other: All systems not noted in ROS Statement are negative. Past Medical History Past Medical History: Hypertension, Respiratory Disorder, Sleep Apnea/CPAP/BIPAP Additional Past Medical History / Comment(s): head injury in the past History of Any Multi-Drug Resistant Organisms: None Reported Past Surgical History: Section, Heart Catheterization, Uterine Ablation Additional Past Surgical History / Comment(s): eye surgery, lithotripsy, OVARIAN CYST REMOVED RIGHT SIDE Past Anesthesia/Blood Transfusion Reactions: No Reported Reaction Past Psychological History: Anxiety, Bipolar, Depression, Schizophrenia Smoking Status: Current every day smoker Past Alcohol Use History: None Reported Past Drug Use History: None Reported - Past Family History Mother Family Medical History: Cancer Father Family Medical History: Unable to Obtain General Exam General appearance: alert, in no apparent distress Head exam: Present: atraumatic, normocephalic, normal inspection Respiratory exam: Present: normal lung sounds bilaterally. Absent: respiratory distress, wheezes, rales, rhonchi, stridor Cardiovascular Exam: Present: regular rate, normal rhythm, normal heart sounds. Absent: systolic murmur, diastolic murmur, rubs, gallop, clicks Neurological exam: Present: alert, oriented X3, CN II-XII intact Skin exam: Present: warm, dry, intact, normal color. Absent: rash Medical Decision Making - Medical Decision Making 31-year-old female presented for hypertension. Patient's blood pressure is minimally elevated. Patient has prescribed her medications and given all her doses by [facility]. She did have all of her doses today. Patient denies any chest pain or shortness of breath. Patient refuses EKG. Patient will be discharged at this time. Disposition Clinical Impression: Hypertension Disposition: HOME SELF-CARE Condition: Stable Instructions: Hypertension (ED) Additional Instructions: Please return to the Emergency Department if symptoms worsen or any other concerns. Referrals: Nico Parr MD [Primary Care Provider] - 1-2 days Time of Disposition: 00:52
[2017-06-13 00:55] VITALS: BP 168/97; PULSE 71; RESP 18; TEMP 98
== END 2017-06-13 00:57 | disposition home or self-care (01) ==
LOC: EC 00:50
DX: I10 Essential (primary) hypertension (principal); F20.9 Schizophrenia, unspecified; F31.9 Bipolar disorder, unspecified; F41.9 Anxiety disorder, unspecified; F17.200 Nicotine dependence, unspecified, uncomplicated; Z79.899 Other long term (current) drug therapy; Z91.041 Radiographic dye allergy status; Z91.040 Latex allergy status; Z88.0 Allergy status to penicillin; Z88.1 Allergy status to other antibiotic agents; Z88.2 Allergy status to sulfonamides; Z88.8 Allergy status to other drugs, medicaments and biological substances
CPT/HCPCS: 99283

== ENCOUNTER 2017-06-13 08:14 | Emergency (ER) | payer MEDICARE, OTHER ==
[2017-06-13 08:24] VITALS: RESP 20; TEMP 97.1
--- NOTE | 2017-06-13 08:56 | ED ---
General Adult HPI - General Chief complaint: Recheck/Abnormal Lab/Rx Stated complaint: Blood Pressure Time Seen by Provider: 06/13/17 08:43 Source: patient, EMS, RN notes reviewed, old records reviewed Mode of arrival: EMS - History of Present Illness Initial comments: Patient 51-year-old female who presents emergency room today by EMS, the chief complaint of elevated blood pressure. Patient received medication from the ACT team. Patient states her blood pressures been elevated this morning. She denies any complaints or symptoms. Patient denies any recent fever, chills, shortness of breath, chest pain, back pain, abdominal pain, nausea or vomiting, numbness or tingling, dysuria or hematuria, constipation or diarrhea, headaches or visual changes, or any other complaints. - Related Data Home Medications Medication Instructions Recorded Confirmed cloNIDine HCL 0.3 mg PO TID 02/11/16 06/13/17 Losartan Potassium [Cozaar] 100 mg PO QAM 03/26/16 06/13/17 fluPHENAZine DECANOATE [Prolixin 50 mg IM MO 02/08/17 06/13/17 Decanoate] Atenolol 25 mg PO DAILY 05/08/17 06/13/17 Allergies Allergy/AdvReac Type Severity Reaction Status Date / Time diphenhydramine Allergy Itching Verified 06/13/17 08:24 [From Benadryl] Iodinated Contrast- Oral and Allergy Rash/Hives Verified 06/13/17 08:24 IV Dye latex Allergy Rash/Hives Verified 06/13/17 08:24 Penicillins Allergy Rash/Hives Verified 06/13/17 08:24 propoxyphene Allergy Unknown Verified 06/13/17 08:24 Quinolones Allergy Rash/Hives Verified 06/13/17 08:24 Sulfa (Sulfonamide Allergy Rash/Hives Verified 06/13/17 08:24 Antibiotics) Review of Systems ROS Statement: Those systems with pertinent positive or pertinent negative responses have been documented in the HPI. ROS Other: All systems not noted in ROS Statement are negative. Past Medical History Past Medical History: Hypertension, Respiratory Disorder, Sleep Apnea/CPAP/BIPAP Additional Past Medical History / Comment(s): head injury in the past History of Any Multi-Drug Resistant Organisms: None Reported Past Surgical History: Section, Heart Catheterization, Uterine Ablation Additional Past Surgical History / Comment(s): eye surgery, lithotripsy, OVARIAN CYST REMOVED RIGHT SIDE Past Anesthesia/Blood Transfusion Reactions: No Reported Reaction Past Psychological History: Anxiety, Bipolar, Depression, Schizophrenia Smoking Status: Current every day smoker Past Alcohol Use History: None Reported Past Drug Use History: None Reported - Past Family History Mother Family Medical History: Cancer Father Family Medical History: Unable to Obtain General Exam - General Exam Comments Initial Comments: General: The patient is awake and alert, in no distress, and does not appear acutely ill. Eye: Pupils are equal, round and reactive to light, extra-ocular movements are intact. No nystagmus. There is normal conjunctiva bilaterally. No signs of icterus. Ears, nose, mouth and throat: There are moist mucous membranes and no oral lesions. Neck: The neck is supple, there is no tenderness or JVD. Cardiovascular: There is a regular rate and rhythm. No murmur, rub or gallop is appreciated. Respiratory: Lungs are clear to auscultation, respirations are non-labored, breath sounds are equal. No wheezes, stridor, rales, or rhonchi. Musculoskeletal: Normal ROM, no tenderness. Strength 5/5. Sensation intact. Pulses equal bilaterally 2+. Neurological: A&O x 3. CN II-XII intact, There are no obvious motor or sensory deficits. Coordination appears grossly intact. Speech is normal. Skin: Skin is warm and dry and no rashes or lesions are noted. Psychiatric: Cooperative, appropriate mood & affect, normal judgment. Course Vital Signs 06/13/17 08:21 Temperature 97.1 F L Pulse Rate 91 Respiratory 20 Rate Blood Pressure 215/120 O2 Sat by Pulse 97 Oximetry Medical Decision Making - Medical Decision Making Patient seen here in the emergency room. Her ACT team has been called they state that they are aware house to give her medication. Patient's blood pressure on repeat 169/85. Patient has no other complaints. She states blood pressure was high this morning she called EMS. This time case was discussed with her ACT team and they are on their way to give her her daily medications. Patient will be discharged. Disposition Clinical Impression: Blood pressure check Disposition: HOME SELF-CARE Condition: Good Instructions: Hypertension (ED) Additional Instructions: Please follow-up with family doctor in the next 2 days of symptoms have not improved. Please return to emergency room if the symptoms increase or worsen or for any other concerns. Referrals: Nico Parr MD [Primary Care Provider] - 1-2 days Time of Disposition: 08:56
[2017-06-13 08:59] VITALS: BP 169/85; PULSE 88
== END 2017-06-13 08:59 | disposition home or self-care (01) ==
LOC: EC 08:14
DX: I10 Essential (primary) hypertension (principal); F20.9 Schizophrenia, unspecified; F31.9 Bipolar disorder, unspecified; F41.9 Anxiety disorder, unspecified; F17.200 Nicotine dependence, unspecified, uncomplicated; Z79.899 Other long term (current) drug therapy; Z88.8 Allergy status to other drugs, medicaments and biological substances; Z88.0 Allergy status to penicillin; Z88.2 Allergy status to sulfonamides; Z88.1 Allergy status to other antibiotic agents; Z91.040 Latex allergy status; Z91.041 Radiographic dye allergy status
CPT/HCPCS: 99283

== ENCOUNTER 2017-06-18 10:44 | Emergency (ER) | payer MEDICARE, OTHER ==
[2017-06-18 11:02] VITALS: BP 205/104; PULSE 95; RESP 16; TEMP 98.9
[2017-06-18] MEDS ORDERED: cloNIDine HCL 0.1 MG TAB PO STA (11:05)
--- NOTE | 2017-06-18 11:05 | ED ---
General Adult HPI - General Chief complaint: Recheck/Abnormal Lab/Rx Stated complaint: High blood pressure Time Seen by Provider: 06/18/17 10:56 Source: patient, RN notes reviewed Mode of arrival: EMS Limitations: no limitations - History of Present Illness Initial comments: 51-year-old female presents to the emergency department with a chief complaint of hypertension. Patient states the accident has not arrived give her her medications. Her blood pressure is elevated. Patient states she just like her blood pressure medications and that she like to go home. Patient states when her blood pressure goes up she can tell so she took it and then she called the ambulance. Patient denies any chest pain or shortness of breath. Patient denies any fever chills with this. Patient states the acting does not normally bring her medications told them that she follows up her blood pressure is too high and she cannot wait this long. Patient denies any other symptoms at this time.Patient denies any recent fever, chills, shortness of breath, chest pain, back pain, abdominal pain, nausea vomiting, numbness or tingling, dysuria or hematuria, constipation or diarrhea, headaches or visual changes, or any other current symptoms. - Related Data Home Medications Medication Instructions Recorded Confirmed cloNIDine HCL 0.3 mg PO TID 02/11/16 06/18/17 Losartan Potassium [Cozaar] 100 mg PO QAM 03/26/16 06/18/17 fluPHENAZine DECANOATE [Prolixin 50 mg IM MO 02/08/17 06/18/17 Decanoate] Atenolol 25 mg PO DAILY 05/08/17 06/18/17 Allergies Allergy/AdvReac Type Severity Reaction Status Date / Time diphenhydramine Allergy Itching Verified 06/18/17 11:02 [From Benadryl] Iodinated Contrast- Oral and Allergy Rash/Hives Verified 06/18/17 11:02 IV Dye latex Allergy Rash/Hives Verified 06/18/17 11:02 Penicillins Allergy Rash/Hives Verified 06/18/17 11:02 propoxyphene Allergy Unknown Verified 06/18/17 11:02 Quinolones Allergy Rash/Hives Verified 06/18/17 11:02 Sulfa (Sulfonamide Allergy Rash/Hives Verified 06/18/17 11:02 Antibiotics) Review of Systems ROS Statement: Those systems with pertinent positive or pertinent negative responses have been documented in the HPI. ROS Other: All systems not noted in ROS Statement are negative. Past Medical History Past Medical History: Hypertension, Respiratory Disorder, Sleep Apnea/CPAP/BIPAP Additional Past Medical History / Comment(s): head injury in the past History of Any Multi-Drug Resistant Organisms: None Reported Past Surgical History: Section, Heart Catheterization, Uterine Ablation Additional Past Surgical History / Comment(s): eye surgery, lithotripsy, OVARIAN CYST REMOVED RIGHT SIDE Past Anesthesia/Blood Transfusion Reactions: No Reported Reaction Past Psychological History: Anxiety, Bipolar, Depression, Schizophrenia Smoking Status: Current every day smoker Past Alcohol Use History: None Reported Past Drug Use History: None Reported - Past Family History Mother Family Medical History: Cancer Father Family Medical History: Unable to Obtain General Exam Limitations: no limitations General appearance: alert, in no apparent distress ENT exam: Present: normal exam, mucous membranes moist Neck exam: Present: normal inspection. Absent: tenderness, meningismus, lymphadenopathy Respiratory exam: Present: normal lung sounds bilaterally. Absent: respiratory distress, wheezes, rales, rhonchi, stridor Cardiovascular Exam: Present: regular rate, normal rhythm, normal heart sounds. Absent: systolic murmur, diastolic murmur, rubs, gallop, clicks Neurological exam: Present: alert, oriented X3 Skin exam: Present: warm, dry, intact, normal color. Absent: rash Course Vital Signs 06/18/17 10:59 Temperature 98.9 F Pulse Rate 95 Respiratory 16 Rate Blood Pressure 205/104 O2 Sat by Pulse 95 Oximetry Medical Decision Making - Medical Decision Making 51-year-old female presents emergency Department chief complaint of hypertension. Patient's blood pressure medications were given however the patient left AGAINST MEDICAL ADVICE prior to us being in to evaluate this her blood pressure did improve. The nurse was able to educate her about the risks of leaving. Patient stated she understood but sleepy department without thoroughly continuing the evaluation. Patient is a found to have an elevated blood pressure on this ER visit. At this time patient is informed to follow-up with his family care doctor for continued monitoring. Disposition Clinical Impression: Hypertension Disposition: Left Against Medical Advice Referrals: Nico Parr MD [Primary Care Provider] - 1-2 days
[2017-06-18] MEDS ORDERED: cloNIDine HCL 0.2 MG TAB PO STA (12:07)
[2017-06-18] MEDS ORDERED: LOSARTAN 25 MG TAB PO STA (12:08)
[2017-06-18] MEDS ORDERED: LOSARTAN 50 MG TAB PO STA (12:08)
[2017-06-18] MEDS ORDERED: ATENOLOL 25 MG TAB PO STA (12:08)
== END 2017-06-18 12:57 | disposition left against medical advice (07) ==
LOC: EC 10:44
DX: I10 Essential (primary) hypertension (principal); F20.9 Schizophrenia, unspecified; F17.200 Nicotine dependence, unspecified, uncomplicated; Z88.0 Allergy status to penicillin; Z91.040 Latex allergy status; Z88.2 Allergy status to sulfonamides; Z88.8 Allergy status to other drugs, medicaments and biological substances; Z91.041 Radiographic dye allergy status; Z53.29 Procedure and treatment not carried out because of patient's decision for other reasons; Z79.899 Other long term (current) drug therapy
CPT/HCPCS: 99284

== ENCOUNTER 2017-06-18 15:21 | Emergency (ER) | payer MEDICARE, OTHER ==
[2017-06-18 15:59] VITALS: PULSE 91; RESP 20; TEMP 98.3
[2017-06-18] MEDS ORDERED: cloNIDine HCL 0.1 MG TAB PO STA (16:50)
--- NOTE | 2017-06-18 16:53 | ED ---
General Adult HPI - General Chief complaint: Recheck/Abnormal Lab/Rx Stated complaint: hypertension Time Seen by Provider: 06/18/17 16:48 Source: patient, RN notes reviewed Mode of arrival: EMS Limitations: no limitations - History of Present Illness Initial comments: 51 yo female presents to the ER with cc of hypertension. Patient suffers from chronic hypertension. She was seen here earlier today and left AMA before we could treat her hypertension. The patient has now returned. At this time we will give her clonidine. We did give her her daily prescription for her blood pressure medication earlier today. Patient denies any chest pain or any other symptoms with this. She states she is just concerned due to her elevated blood pressure.Patient denies any recent fever, chills, shortness of breath, chest pain, back pain, abdominal pain, nausea vomiting, numbness or tingling, dysuria or hematuria, constipation or diarrhea, headaches or visual changes, or any other current symptoms. - Related Data Home Medications Medication Instructions Recorded Confirmed cloNIDine HCL 0.3 mg PO TID 02/11/16 06/18/17 Losartan Potassium [Cozaar] 100 mg PO QAM 03/26/16 06/18/17 fluPHENAZine DECANOATE [Prolixin 50 mg IM MO 02/08/17 06/18/17 Decanoate] Atenolol 25 mg PO DAILY 05/08/17 06/18/17 Allergies Allergy/AdvReac Type Severity Reaction Status Date / Time diphenhydramine Allergy Itching Verified 06/18/17 15:59 [From Benadryl] Iodinated Contrast- Oral and Allergy Rash/Hives Verified 06/18/17 15:59 IV Dye latex Allergy Rash/Hives Verified 06/18/17 15:59 Penicillins Allergy Rash/Hives Verified 06/18/17 15:59 propoxyphene Allergy Unknown Verified 06/18/17 15:59 Quinolones Allergy Rash/Hives Verified 06/18/17 15:59 Sulfa (Sulfonamide Allergy Rash/Hives Verified 06/18/17 15:59 Antibiotics) Review of Systems ROS Statement: Those systems with pertinent positive or pertinent negative responses have been documented in the HPI. ROS Other: All systems not noted in ROS Statement are negative. Past Medical History Past Medical History: Hypertension, Respiratory Disorder, Sleep Apnea/CPAP/BIPAP Additional Past Medical History / Comment(s): head injury in the past History of Any Multi-Drug Resistant Organisms: None Reported Past Surgical History: Section, Heart Catheterization, Uterine Ablation Additional Past Surgical History / Comment(s): eye surgery, lithotripsy, OVARIAN CYST REMOVED RIGHT SIDE Past Anesthesia/Blood Transfusion Reactions: No Reported Reaction Past Psychological History: Anxiety, Bipolar, Depression, Schizophrenia Smoking Status: Current every day smoker Past Alcohol Use History: None Reported Past Drug Use History: None Reported - Past Family History Mother Family Medical History: Cancer Father Family Medical History: Unable to Obtain General Exam Limitations: no limitations General appearance: alert, in no apparent distress ENT exam: Present: normal exam, mucous membranes moist Neck exam: Present: normal inspection. Absent: tenderness, meningismus, lymphadenopathy Respiratory exam: Present: normal lung sounds bilaterally. Absent: respiratory distress, wheezes, rales, rhonchi, stridor Cardiovascular Exam: Present: regular rate, normal rhythm, normal heart sounds. Absent: systolic murmur, diastolic murmur, rubs, gallop, clicks Neurological exam: Present: alert Skin exam: Present: warm, dry, intact, normal color. Absent: rash Course Vital Signs 06/18/17 15:57 Temperature 98.3 F Pulse Rate 91 Respiratory 20 Rate Blood Pressure 222/96 O2 Sat by Pulse 99 Oximetry Medical Decision Making - Medical Decision Making 51-year-old female presents to the emergency Department chief complaint hypertension. This time blood pressure has improved. At this time the patient is informed to continue her home medications. We discussed return parameters and follow-up with the patient. She stated that she understood all cushions have been answered. She'll be discharged. Disposition Clinical Impression: Hypertension Disposition: HOME SELF-CARE Condition: Stable Instructions: Hypertension (ED) Additional Instructions: Please use medication as discussed. Please follow up with family doctor if symptoms have not improved over the next two days. Please return to the emergency room if your symptoms increase or worsen or for any other concerns. Referrals: Nico Parr MD [Primary Care Provider] - 1-2 days Time of Disposition: 17:26
[2017-06-18 17:26] VITALS: BP 176/86
== END 2017-06-18 17:57 | disposition home or self-care (01) ==
LOC: EC 15:21
DX: I10 Essential (primary) hypertension (principal); F20.9 Schizophrenia, unspecified; F17.200 Nicotine dependence, unspecified, uncomplicated; Z79.899 Other long term (current) drug therapy; Z88.0 Allergy status to penicillin; Z88.1 Allergy status to other antibiotic agents; Z88.2 Allergy status to sulfonamides; Z88.5 Allergy status to narcotic agent; Z88.8 Allergy status to other drugs, medicaments and biological substances; Z91.040 Latex allergy status; Z91.041 Radiographic dye allergy status; Z95.818 Presence of other cardiac implants and grafts
CPT/HCPCS: 99283; 99284

== ENCOUNTER 2017-06-20 07:07 | Emergency (ER) | payer MEDICARE, OTHER ==
[2017-06-20 07:25] VITALS: RESP 18; TEMP 97.9
[2017-06-20] MEDS ORDERED: LOSARTAN 50 MG TAB PO STA (07:33)
[2017-06-20] MEDS ORDERED: cloNIDine HCL 0.1 MG TAB PO STA (07:33)
--- NOTE | 2017-06-20 08:12 | ED ---
General Adult HPI - General Chief complaint: Recheck/Abnormal Lab/Rx Stated complaint: high BP Time Seen by Provider: 06/20/17 07:07 Source: patient, EMS, RN notes reviewed Mode of arrival: EMS Limitations: no limitations - History of Present Illness Initial comments: This is a 51-year-old female who presents emergency Department stating her blood pressures to high here patient is frequently in the ER for the same exact thing. Patient has a history of cocaine abuse. Patient denies any other complaint. Patient states her meds are not given to her to 11:00 so her blood pressure gets high so she calls any habits. Patient denies any chest pain difficulty breathing or shortness of breath patient denies headache patient denies numbness weakness. Patient denies any abdominal pain patient denies nausea vomiting diarrhea. Patient is already requesting to leave. - Related Data Home Medications Medication Instructions Recorded Confirmed cloNIDine HCL 0.3 mg PO TID 02/11/16 06/20/17 Losartan Potassium [Cozaar] 100 mg PO QAM 03/26/16 06/20/17 fluPHENAZine DECANOATE [Prolixin 50 mg IM MO 02/08/17 06/20/17 Decanoate] Atenolol 25 mg PO DAILY 05/08/17 06/20/17 Allergies Allergy/AdvReac Type Severity Reaction Status Date / Time diphenhydramine Allergy Itching Verified 06/20/17 07:21 [From Benadryl] Iodinated Contrast- Oral and Allergy Rash/Hives Verified 06/20/17 07:21 IV Dye latex Allergy Rash/Hives Verified 06/20/17 07:21 Penicillins Allergy Rash/Hives Verified 06/20/17 07:21 propoxyphene Allergy Unknown Verified 06/20/17 07:21 Quinolones Allergy Rash/Hives Verified 06/20/17 07:21 Sulfa (Sulfonamide Allergy Rash/Hives Verified 06/20/17 07:21 Antibiotics) Review of Systems ROS Statement: Those systems with pertinent positive or pertinent negative responses have been documented in the HPI. ROS Other: All systems not noted in ROS Statement are negative. Past Medical History Past Medical History: Hypertension, Respiratory Disorder, Sleep Apnea/CPAP/BIPAP Additional Past Medical History / Comment(s): head injury in the past History of Any Multi-Drug Resistant Organisms: None Reported Past Surgical History: Section, Heart Catheterization, Uterine Ablation Additional Past Surgical History / Comment(s): eye surgery, lithotripsy, OVARIAN CYST REMOVED RIGHT SIDE Past Anesthesia/Blood Transfusion Reactions: No Reported Reaction Past Psychological History: Anxiety, Bipolar, Depression, Schizophrenia Smoking Status: Current every day smoker Past Alcohol Use History: None Reported Past Drug Use History: None Reported - Past Family History Mother Family Medical History: Cancer Father Family Medical History: Unable to Obtain General Exam - General Exam Comments Initial Comments: GENERAL: Patient is well-developed and well-nourished. Patient is nontoxic and well- hydrated and is in no acute distress. ENT: Neck is soft and supple. No significant lymphadenopathy is noted. Oropharynx is clear. Moist mucous membranes. Neck has full range of motion without eliciting any pain. EYES: The sclera were anicteric and conjunctiva were pink and moist. Extraocular movements were intact and pupils were equal round and reactive to light. Eyelids were unremarkable. PULMONARY: Unlabored respirations. Good breath sounds bilaterally. No audible rales rhonchi or wheezing was noted. CARDIOVASCULAR: There is a regular rate and rhythm without any murmurs gallops or rubs. ABDOMEN: Soft and nontender with normal bowel sounds. No palpable organomegaly was noted. There is no palpable pulsatile mass. SKIN: Patient has multiple excoriations on her legs and arms and back according to EMS she has bedbugs in her house. NEUROLOGIC: Patient is alert and oriented x3. Cranial nerves II through XII are grossly intact. Motor and sensory are also intact. Normal speech, volume and content. Symmetrical smile. MUSCULOSKELETAL: Normal extremities with adequate strength and full range of motion. No lower extremity swelling or edema. No calf tenderness. LYMPHATICS: No significant lymphadenopathy is noted Limitations: no limitations Course Vital Signs 06/20/17 06/20/17 07:22 08:19 Temperature 97.9 F Pulse Rate 95 85 Respiratory 18 18 Rate Blood Pressure 200/88 174/84 O2 Sat by Pulse 99 97 Oximetry Medical Decision Making - Medical Decision Making I spoke with her public guardian and indicated to the public guardian that there needs to be a better system than allowing this patient to come in multiple times every single week of the year. Patient is not competent enough to indicate to us if there truly is a problem and because of the multiple visits I'm in fear that one day she will come in with a real problem and it will not be taken seriously. patient was given meds for htn Disposition Clinical Impression: Hypertension Disposition: HOME SELF-CARE Condition: Good Instructions: Hypertension (ED) Referrals: Nico Parr MD [Primary Care Provider] - 1-2 days Time of Disposition: 08:22
[2017-06-20 08:20] VITALS: BP 174/84; PULSE 85
== END 2017-06-20 08:31 | disposition home or self-care (01) ==
LOC: EC 07:07
DX: I10 Essential (primary) hypertension (principal); F20.9 Schizophrenia, unspecified; F31.9 Bipolar disorder, unspecified; F41.9 Anxiety disorder, unspecified; F17.200 Nicotine dependence, unspecified, uncomplicated; Z79.899 Other long term (current) drug therapy; Z91.041 Radiographic dye allergy status; Z91.040 Latex allergy status; Z88.0 Allergy status to penicillin; Z88.2 Allergy status to sulfonamides; Z88.8 Allergy status to other drugs, medicaments and biological substances
CPT/HCPCS: 99283

== ENCOUNTER 2017-06-21 05:08 | Emergency (ER) | payer MEDICARE, OTHER ==
[2017-06-21] MEDS ORDERED: cloNIDine HCL 0.1 MG TAB PO STA (06:47)
[2017-06-21] MEDS ORDERED: amLODIPine 5 MG TAB PO STA (06:48)
[2017-06-21] MEDS ORDERED: LOSARTAN 50 MG TAB PO STA (06:48)
[2017-06-21 06:49] VITALS: RESP 18; TEMP 97.9
--- NOTE | 2017-06-21 06:54 | ED ---
General Adult HPI - General Chief complaint: Recheck/Abnormal Lab/Rx Stated complaint: Hypertension Time Seen by Provider: 06/21/17 06:35 Source: patient, EMS, RN notes reviewed, old records reviewed Mode of arrival: EMS Limitations: no limitations - History of Present Illness Initial comments: This is a 51-year-old female the ER for evaluation of high blood pressure. Patient states she needs her blood pressure medication. States she is dispensed to her. She's concern for elevated blood pressure. Patient requesting to take will start clonidine and Catapres. Patient states that she gets his medications reliably be discharged home - Related Data Home Medications Medication Instructions Recorded Confirmed cloNIDine HCL 0.3 mg PO TID 02/11/16 06/20/17 Losartan Potassium [Cozaar] 100 mg PO QAM 03/26/16 06/20/17 fluPHENAZine DECANOATE [Prolixin 50 mg IM MO 02/08/17 06/20/17 Decanoate] Atenolol 25 mg PO DAILY 05/08/17 06/20/17 Allergies Allergy/AdvReac Type Severity Reaction Status Date / Time diphenhydramine Allergy Itching Verified 06/20/17 07:21 [From Benadryl] Iodinated Contrast- Oral and Allergy Rash/Hives Verified 06/20/17 07:21 IV Dye latex Allergy Rash/Hives Verified 06/20/17 07:21 Penicillins Allergy Rash/Hives Verified 06/20/17 07:21 propoxyphene Allergy Unknown Verified 06/20/17 07:21 Quinolones Allergy Rash/Hives Verified 06/20/17 07:21 Sulfa (Sulfonamide Allergy Rash/Hives Verified 06/20/17 07:21 Antibiotics) Review of Systems ROS Statement: Those systems with pertinent positive or pertinent negative responses have been documented in the HPI. ROS Other: All systems not noted in ROS Statement are negative. Past Medical History Past Medical History: Hypertension, Respiratory Disorder, Sleep Apnea/CPAP/BIPAP Additional Past Medical History / Comment(s): head injury in the past History of Any Multi-Drug Resistant Organisms: None Reported Past Surgical History: Section, Heart Catheterization, Uterine Ablation Additional Past Surgical History / Comment(s): eye surgery, lithotripsy, OVARIAN CYST REMOVED RIGHT SIDE Past Anesthesia/Blood Transfusion Reactions: No Reported Reaction Past Psychological History: Anxiety, Bipolar, Depression, Schizophrenia Smoking Status: Current every day smoker Past Alcohol Use History: None Reported Past Drug Use History: None Reported - Past Family History Mother Family Medical History: Cancer Father Family Medical History: Unable to Obtain General Exam Limitations: no limitations General appearance: alert, in no apparent distress Head exam: Present: atraumatic, normocephalic, normal inspection Eye exam: Present: normal appearance, PERRL, EOMI. Absent: scleral icterus, conjunctival injection, periorbital swelling ENT exam: Present: normal exam, mucous membranes moist Neck exam: Present: normal inspection. Absent: tenderness, meningismus, lymphadenopathy Respiratory exam: Present: normal lung sounds bilaterally. Absent: respiratory distress, wheezes, rales, rhonchi, stridor Cardiovascular Exam: Present: regular rate, normal rhythm, normal heart sounds. Absent: systolic murmur, diastolic murmur, rubs, gallop, clicks GI/Abdominal exam: Present: soft, normal bowel sounds. Absent: distended, tenderness, guarding, rebound, rigid Extremities exam: Present: normal inspection, full ROM, normal capillary refill. Absent: tenderness, pedal edema, joint swelling, calf tenderness Back exam: Present: normal inspection Neurological exam: Present: alert, oriented X3, CN II-XII intact Psychiatric exam: Present: normal affect, normal mood Skin exam: Present: warm, dry, intact, normal color. Absent: rash Course Vital Signs 06/21/17 06/21/17 06/21/17 05:32 06:15 06:43 Temperature 97.9 F Pulse Rate 78 87 78 Respiratory 18 18 Rate Blood Pressure 187/88 188/78 176/94 O2 Sat by Pulse 96 97 Oximetry Medical Decision Making - Medical Decision Making 51-year-old female D for medication refill, patient will be taking medications for blood pressure, requesting medications here, patient given medications and will be discharged home Disposition Clinical Impression: Psychosis, Medication refill, Hypertension Disposition: HOME SELF-CARE Condition: Good Referrals: Nico Parr MD [Primary Care Provider] - 1-2 days
[2017-06-21 07:16] VITALS: BP 115/71; PULSE 102
== END 2017-06-21 07:17 | disposition home or self-care (01) ==
LOC: EC 05:08
DX: F29 Unspecified psychosis not due to a substance or known physiological condition (principal); I10 Essential (primary) hypertension; F20.9 Schizophrenia, unspecified; F17.200 Nicotine dependence, unspecified, uncomplicated; Z88.0 Allergy status to penicillin; Z91.041 Radiographic dye allergy status; Z91.040 Latex allergy status; Z88.2 Allergy status to sulfonamides; Z88.8 Allergy status to other drugs, medicaments and biological substances; Z79.899 Other long term (current) drug therapy
CPT/HCPCS: 99284

== ENCOUNTER 2017-08-03 15:36 | Observation (INO) | payer MEDICARE, OTHER ==
--- NOTE | 2017-08-03 16:07 | ED ---
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 Patient's been having issues with her blood pressure for several weeks to months but has been worse recently. Patient's blood pressure was elevated over 240/100 at the halfway. Patient denies chest pain , shortness breath, headache or dizziness. Patient states caregiver stated that they did discuss this with Dr. Chang x ray service technician recommended the patient be brought to emergency department for evaluation and possible admission. - Related Data Home Medications Medication Instructions Recorded Confirmed cloNIDine HCL 0.3 mg PO TID 02/11/16 08/03/17 Losartan Potassium [Cozaar] 100 mg PO QAM 03/26/16 08/03/17 fluPHENAZine DECANOATE [Prolixin 50 mg IM MO 02/08/17 08/03/17 Decanoate] Atenolol 25 mg PO DAILY 05/08/17 08/03/17 Allergies Allergy/AdvReac Type Severity Reaction Status Date / Time diphenhydramine Allergy Itching Verified 08/03/17 16:05 [From Benadryl] Iodinated Contrast- Oral and Allergy Rash/Hives Verified 08/03/17 16:05 IV Dye latex Allergy Rash/Hives Verified 08/03/17 16:05 Penicillins Allergy Rash/Hives Verified 08/03/17 16:05 propoxyphene Allergy Unknown Verified 08/03/17 16:05 Quinolones Allergy Rash/Hives Verified 08/03/17 16:05 Sulfa (Sulfonamide Allergy Rash/Hives Verified 08/03/17 16:05 Antibiotics) Review of Systems ROS Statement: Those systems with pertinent positive or pertinent negative responses have been documented in the HPI. ROS Other: All systems not noted in ROS Statement are negative. Past Medical History Past Medical History: Hypertension, Respiratory Disorder, Sleep Apnea/CPAP/BIPAP Additional Past Medical History / Comment(s): head injury in the past History of Any Multi-Drug Resistant Organisms: None Reported Past Surgical History: Section, Heart Catheterization, Uterine Ablation Additional Past Surgical History / Comment(s): eye surgery, lithotripsy, OVARIAN CYST REMOVED RIGHT SIDE Past Anesthesia/Blood Transfusion Reactions: No Reported Reaction Past Psychological History: Anxiety, Bipolar, Depression, Schizophrenia Smoking Status: Current every day smoker Past Alcohol Use History: None Reported Past Drug Use History: None Reported - Past Family History Mother Family Medical History: Cancer Father Family Medical History: Unable to Obtain General Exam Limitations: no limitations General appearance: alert, in no apparent distress Neck exam: Present: normal inspection, full ROM. Absent: tenderness, meningismus, lymphadenopathy Respiratory exam: Present: normal lung sounds bilaterally. Absent: respiratory distress, wheezes, rales, rhonchi, stridor Cardiovascular Exam: Present: regular rate, normal rhythm, normal heart sounds. Absent: systolic murmur, diastolic murmur, rubs, gallop, clicks Neurological exam: Present: alert, oriented X3, CN II-XII intact, reflexes normal. Absent: motor sensory deficit Skin exam: Present: warm, dry, intact, normal color. Absent: rash Course Vital Signs 08/03/17 08/03/17 15:57 16:40 Temperature 97.0 F L Pulse Rate 72 73 Respiratory 18 18 Rate Blood Pressure 143/90 137/84 O2 Sat by Pulse 96 97 Oximetry Disposition Clinical Impression: Uncontrolled hypertension Disposition: ADMITTED IP TO THIS [facility] Condition: Stable Additional Instructions: Please return to the Emergency Department if symptoms worsen or any other concerns. Referrals: Perri Mcqueen MD [Primary Care Provider] - 1-2 days Time of Disposition: 16:07
[2017-08-03] MEDS ORDERED: ACETAMINOPHEN TAB 325 MG TAB PO PRN (17:07)
[2017-08-03] MEDS ORDERED: NALOXONE 0.4 MG/ML 1 ML VIAL IV PRN (17:07)
[2017-08-03] MEDS ORDERED: NICOTINE 21MG/24HR PATCH TRANSDERM STA (17:09)
[2017-08-03 17:31] LABS: Basophils # (A) 0.1 k/uL (0-0.2); Basophils % (A) 1 %; CH 31.3; Eosinophils # (A) 0.3 k/uL (0-0.7); Eosinophils % (A) 3 %; HCT 52.6 % (34.0-46.0); HGB 17.5 gm/dL (11.4-16.0); Luc # (Auto) 0.17; Luc % (Auto) 2; Lymphocytes # (A) 3.4 k/uL (1.0-4.8); Lymphocytes % (A) 33 %; MCH 31.7 pg (25.0-35.0); MCHC 33.3 g/dL (31.0-37.0); MCV 95.2 fL (80.0-100.0); Mean Platelet Volume 8.6; Monocytes # (A) 0.5 k/uL (0-1.0); Monocytes % (A) 5 %; Neutrophils % (A) 57 %; RBC 5.52 m/uL (3.80-5.40); WBC 10.4 k/uL (3.8-10.6); WBC (Perox) 10.68
[2017-08-03 17:44] LABS: Anion Gap 12 mmol/L; Blood Urea Nitrogen 14 mg/dL (7-17); Calcium 9.4 mg/dL (8.4-10.2); Carbon Dioxide 22 mmol/L (22-30); Chloride 99 mmol/L (98-107); Glucose 158 mg/dL (74-99); Non-African American GFR(MDRD) >60 (>60 ml/min/1.73 sqM); Potassium 4.3 mmol/L (3.5-5.1); Sodium 133 mmol/L (137-145)
[2017-08-03 19:49] VITALS: BMI 39.1
[2017-08-04 07:49] VITALS: RESP 20
[2017-08-04] MEDS ORDERED: LOSARTAN 50 MG TAB PO SCH (09:00)
[2017-08-04] MEDS ORDERED: ATENOLOL 25 MG TAB PO SCH (09:00)
[2017-08-04] MEDS: cloNIDine HCL 0.1 MG TAB PO SCH ×2 (09:24→14:54)
--- NOTE | 2017-08-04 13:39 | P.CRDCN ---
History of Present Illness Consult date: 08/04/17 History of present illness: This is a 51-year-old female has medical history significant for hypertension. She follows with Dr. Chang as an outpatient. We have been asked to see the patient in consultation for uncontrolled hypertension. Her current blood pressure medications include atenolol 25 mg daily, losartan 100 mg daily, clonidine 0.3 mg 3 times a day. [facility] [place] and states she takes her medications regularly as they are administered per staff. Blood pressure upon admission 143/90 with heart rate of 72. This morning was 164/88 before medication administration. At the time of my examination she is seen sitting in bed in no acute distress. She denies chest pain, shortness of breath , dizziness, palpitations or headache. She last saw Dr. Chang in the office and she was started on coreg 25 mg BID and hydrochlorothiazide 25 mg daily. There is no EKG for evaluation although she was also here on August 02 EKG from that time shows sinus mechanism with nonspecific septal T-wave abnormality. This is consistent with old EKGs. Lab data has been reviewed. She underwent cardiac catheterization December 2016 which revealed normal coronary arteries. Most recent echocardiogram was performed in November 2016 revealed normal LV systolic function with mild left ventricular hypertrophy. Review of Systems CONSTITUTIONAL: Denies fever. Denies chills. EYES: Denies blurred vision. Denies vision changes. Denies eye pain. EARS, NOSE, MOUTH & THROAT: Denies headache. Denies sore throat. Denies ear pain. CARDIOVASCULAR: Denies chest pain. Denies shortness of breath. Denies orthopnea. Denies PND. Denies palpitations. RESPIRATORY: Denies cough. GASTROINTESTINAL: Denies abdominal pain. Denies diarrhea. Denies constipation. Denies nausea. Denies vomitng. MUSCULOSKELETAL: Denies myalgias. INTEGUMENTARY: Denies pruitis. Denies rash. NEUROLOGIC: Denies numbness. Denies tingling. Denies weakness. PSYCHIATRIC: Denies anxiety. Denies depression. ENDOCRINE: Denies fatigue. Denies weight change. Denies polydipsia. Denies polyurina. GENITOURINARY: Denies burning, hematuria or urgency with micturation. HEMATOLOGIC: Denies history of anemia. Denies bleeding. Past Medical History Past Medical History: Hypertension, Respiratory Disorder, Sleep Apnea/CPAP/BIPAP Additional Past Medical History / Comment(s): head injury in the past History of Any Multi-Drug Resistant Organisms: None Reported Past Surgical History: Section, Heart Catheterization, Uterine Ablation Additional Past Surgical History / Comment(s): eye surgery, lithotripsy, OVARIAN CYST REMOVED RIGHT SIDE Past Anesthesia/Blood Transfusion Reactions: No Reported Reaction Past Psychological History: Anxiety, Bipolar, Depression, Schizophrenia Additional Psychological History / Comment(s): pt only states that she has depression Smoking Status: Never smoker Past Alcohol Use History: None Reported Past Drug Use History: None Reported Additional Drug Use History / Comment(s): Pt's. UDS is positive for opiates and methamphetamines. - Past Family History Mother Family Medical History: Cancer Father Family Medical History: Unable to Obtain Medications and Allergies Home Medications Medication Instructions Recorded Confirmed Type cloNIDine HCL 0.3 mg PO TID 02/11/16 08/03/17 History Losartan Potassium [Cozaar] 100 mg PO QAM 03/26/16 08/03/17 History fluPHENAZine DECANOATE [Prolixin 50 mg IM MO 02/08/17 08/03/17 History Decanoate] Atenolol 25 mg PO DAILY 05/08/17 08/03/17 History Allergies Allergy/AdvReac Type Severity Reaction Status Date / Time diphenhydramine Allergy Itching Verified 08/03/17 16:05 [From Benadryl] Iodinated Contrast- Oral and Allergy Rash/Hives Verified 08/03/17 16:05 IV Dye latex Allergy Rash/Hives Verified 08/03/17 16:05 Penicillins Allergy Rash/Hives Verified 08/03/17 16:05 propoxyphene Allergy Unknown Verified 08/03/17 16:05 Quinolones Allergy Rash/Hives Verified 08/03/17 16:05 Sulfa (Sulfonamide Allergy Rash/Hives Verified 08/03/17 16:05 Antibiotics) Physical Exam Vitals: Vital Signs Temp Pulse Pulse Resp BP BP Pulse Ox 08/04/17 08:00 76 20 08/04/17 07:00 97.9 F 76 20 164/88 91 L 08/03/17 23:00 97.8 F 63 18 117/69 92 L 08/03/17 19:23 97.4 F L 69 18 104/66 94 L 08/03/17 18:57 97.9 F 72 18 106/56 98 08/03/17 18:13 73 18 123/82 96 08/03/17 16:40 73 18 137/84 97 08/03/17 15:57 97.0 F L 72 18 143/90 96 Intake and Output 08/03/17 08/04/17 08/04/17 22:59 06:59 14:59 Intake Total 320 Balance 320 Intake: Oral 320 Other: Voiding Method Toilet # Voids 2 2 Weight 94 kg GENERAL: This is a 51-year-old female in no apparent distress at the time of my examination. Obese. HEENT: Head is atraumatic, normocephalic. Pupils are equal, round. Sclerae anicteric. Conjunctivae are clear. Mucous membranes of the mouth are moist. Neck is supple. There is no jugular venous distention. No carotid bruit is heard. Flat affect. LUNGS: Clear to auscultation no wheezes, rales or rhonchi. No chest wall tenderness is noted on palpation or with deep breathing. HEART: Regular rate and rhythm without murmurs, rubs or gallops. S1 and S2 heard. ABDOMEN: Soft, nontender. Bowel sounds are heard. No organomegaly noted. EXTREMITIES: Trace nonpitting edema right lower extremity. No edema left lower extremity. No calf tenderness noted. NEUROLOGIC: Patient is awake, alert and oriented x3. Results 08/03/17 17:15 08/03/17 17:15 CBC 08/03/17 Range/Units 17:15 WBC 10.4 (3.8-10.6) k/uL RBC 5.52 H (3.80-5.40) m/uL Hgb 17.5 H (11.4-16.0) gm/dL Hct 52.6 H (34.0-46.0) % Plt Count 275 (150-450) k/uL Comprehensive Metabolic Panel 08/03/17 Range/Units 17:15 Sodium 133 L (137-145) mmol/L Potassium 4.3 (3.5-5.1) mmol/L Chloride 99 (98-107) mmol/L Carbon Dioxide 22 (22-30) mmol/L BUN 14 (7-17) mg/dL Creatinine 0.69 (0.52-1.04) mg/dL Glucose 158 H (74-99) mg/dL Calcium 9.4 (8.4-10.2) mg/dL Current Medications Generic Name Dose Route Start Last Admin Trade Name Frejoe PRN Reason Stop Dose Admin Acetaminophen 650 mg 08/03/17 17:07 Tylenol Tab PO Q6HR PRN Mild Pain or Fever > 100.5 Atenolol 25 mg 08/04/17 09:00 08/04/17 07:40 Tenormin PO 25 mg DAILY MINDI Administration Clonidine 0.3 mg 08/04/17 09:30 08/04/17 09:24 Catapres PO 0.3 mg TID MINDI Administration Losartan Potassium 100 mg 08/04/17 09:00 08/04/17 07:40 Cozaar PO 100 mg QAM MINDI Administration Naloxone HCl 0.2 mg 08/03/17 17:07 Narcan IV Q2M PRN Opioid Reversal Intake and Output 08/03/17 08/04/17 08/04/17 22:59 06:59 14:59 Intake Total 320 Balance 320 Intake: Oral 320 Other: Voiding Method Toilet # Voids 2 2 Weight 94 kg 08/03/17 17:15 08/03/17 17:15 Assessment and Plan Assessment: ASSESSMENT 1. Essential hypertension, uncontrolled in the outpatient setting possibly secondary to noncompliance 2. Obesity 3. Chronic tobacco abuse PLAN Continue all current medications as previously ordered. I will add hydrochlorothiazide 25 mg daily to her regimen as well as recommended per Dr. Chang as an outpatient. Blood pressures since admission have been reasonable and unremarkable. From a cardiac perspective she is stable for discharge home to follow-up with Dr. Chang as an outpatient. She should continue taking her mentioned medications as prescribed. Lifestyle modifications are recommended and discussed the patient is resistant to tobacco cessation. Nurse Practitioner note has been reviewed, I agree with a documented findings and plan of care. Patient was seen and examined.
[2017-08-04 14:36] VITALS: BP 151/92; PULSE 73; TEMP 98.4
[2017-08-04] MEDS: HYDROCHLOROTHIAZIDE 25 MG TAB PO SCH ×2 (14:54→14:55)
[2017-08-04] MEDS ORDERED: cloNIDine HCL 0.1 MG TAB PO SCH (22:00)
--- NOTE | 2017-08-04 22:43 | P.HPIM ---
History of Present Illness H&P Date: 08/04/17 Chief Complaint: Elevated blood pressure Patient is a 51-year-old with a past medical history of hypertension was sent to Hospital from long term with uncontrolled blood pressure. Patient was found to have SBP greater than 250 MMAC and was sent to Hospital for further management. Patient does have some comprehensive issues. Patient has history of mental health issues and is currently in long term. Otherwise patient denied any chest pain or short of breath. No nausea vomiting or abdominal pain. No headache or dizziness. He is currently on clonidine, atenolol, losartan. Patient follows with Dr. Chang as an outpatient. Patient had normal coronaries. Status post cardiac In December 2016. Recent echocardiogram showed normal ejection fraction and left ventricular function. Patient is a poor historian due to underlying mental health issues. Review of Systems Constitutional: Patient denies any fever or chills . No generalized weakness or weight loss. Abdomen: Patient denied nausea vomiting and diarrhea and abdominal pain. Cardiovascular: Patient denies any chest pain or short of breath no palpitations. Respiratory: patient denied any cough is from production. No shortness of breath Neurologic: Patient denied any numbness or tingling headache. Musculoskeletal: Patient denies any complaints of joint swelling or deformity. Skin: Negative Psychiatric: Negative Endocrine: No heat or cold intolerance. No recent weight gain. Genitourinary: No dysuria or hematuria. All other 14 point ROS negative except the above Past Medical History Past Medical History: Hypertension, Respiratory Disorder, Sleep Apnea/CPAP/BIPAP Additional Past Medical History / Comment(s): head injury in the past History of Any Multi-Drug Resistant Organisms: None Reported Past Surgical History: Section, Heart Catheterization, Uterine Ablation Additional Past Surgical History / Comment(s): eye surgery, lithotripsy, OVARIAN CYST REMOVED RIGHT SIDE Past Anesthesia/Blood Transfusion Reactions: No Reported Reaction Past Psychological History: Anxiety, Bipolar, Depression, Schizophrenia Additional Psychological History / Comment(s): pt only states that she has depression Smoking Status: Never smoker Past Alcohol Use History: None Reported Past Drug Use History: None Reported Additional Drug Use History / Comment(s): Pt's. UDS is positive for opiates and methamphetamines. - Past Family History Mother Family Medical History: Cancer Father Family Medical History: Unable to Obtain Medications and Allergies Home Medications Medication Instructions Recorded Confirmed Type cloNIDine HCL 0.3 mg PO TID 02/11/16 08/03/17 History Losartan Potassium [Cozaar] 100 mg PO QAM 03/26/16 08/03/17 History fluPHENAZine DECANOATE [Prolixin 50 mg IM MO 02/08/17 08/03/17 History Decanoate] Atenolol 25 mg PO DAILY 05/08/17 08/03/17 History Hydrochlorothiazide [Hydrodiuril] 25 mg PO DAILY #30 tab 08/04/17 Rx Allergies Allergy/AdvReac Type Severity Reaction Status Date / Time diphenhydramine Allergy Itching Verified 08/03/17 16:05 [From Benadryl] Iodinated Contrast- Oral and Allergy Rash/Hives Verified 08/03/17 16:05 IV Dye latex Allergy Rash/Hives Verified 08/03/17 16:05 Penicillins Allergy Rash/Hives Verified 08/03/17 16:05 propoxyphene Allergy Unknown Verified 08/03/17 16:05 Quinolones Allergy Rash/Hives Verified 08/03/17 16:05 Sulfa (Sulfonamide Allergy Rash/Hives Verified 08/03/17 16:05 Antibiotics) Physical Exam Vitals: Vital Signs Temp Pulse Pulse Resp BP BP Pulse Ox 08/04/17 08:00 76 20 08/04/17 07:00 97.9 F 76 20 164/88 91 L 08/03/17 23:00 97.8 F 63 18 117/69 92 L 08/03/17 19:23 97.4 F L 69 18 104/66 94 L 08/03/17 18:57 97.9 F 72 18 106/56 98 08/03/17 18:13 73 18 123/82 96 08/03/17 16:40 73 18 137/84 97 08/03/17 15:57 97.0 F L 72 18 143/90 96 Intake and Output 08/03/17 08/04/17 08/04/17 22:59 06:59 14:59 Intake Total 320 Balance 320 Intake: Oral 320 Other: Voiding Method Toilet # Voids 2 2 Weight 94 kg PHYSICAL EXAMINATION: Patient is lying in the bed comfortably, no acute distress, awake alert and oriented.. HEENT: Normocephalic. Neck is supple. Pupils reactive. Nostrils clear. Oral cavity is moist. Ears reveal no drainage. Neck reveals no JVD, carotid bruits, or thyromegaly. CHEST EXAMINATION: Trachea is central. Symmetrical expansion. Lung caban clear to auscultation and percussion. CARDIAC: Normal S1, S2 with no gallops. No murmurs ABDOMEN: Soft. Bowel sounds normal. No organomegaly. No abdominal bruits. Extremities: reveal no edema. No clubbing or cyanosis Neurologically awake, alert, oriented x3 with well-coordinated movements. No focal deficits noted Skin: No rash or skin lesions. Psychiatric: Operative. Nonsuicidal Musculoskeletal: No joint swelling or deformity. Normal range of motion. Results CBC & Chem 7: 08/03/17 17:15 08/03/17 17:15 Labs: Abnormal Lab Results - Last 24 Hours (Table) 08/03/17 08/03/17 Range/Units 17:15 17:15 RBC 5.52 H (3.80-5.40) m/uL Hgb 17.5 H (11.4-16.0) gm/dL Hct 52.6 H (34.0-46.0) % Sodium 133 L (137-145) mmol/L Glucose 158 H (74-99) mg/dL Thrombosis Risk Factor Assmnt - Choose All That Apply Each Factor Represents 1 point: Age 41-60 years Thrombosis Risk Factor Assessment Total Risk Factor Score: 1 Thrombosis Risk Factor Assessment Level: Low Risk Assessment and Plan Assessment: Impression #1 hypertensive urgency on admission #2 medication noncompliance #3 depression/bipolar disorder history #4 mild hyponatremia Plan: Patient will be continued on current blood pressure medications including atenolol losartan and Catapres. Hydrochlorothiazide has been added. Patient was advised to follow with Dr. Marin as an outpatient. We will gradually titrate down Catapres as outpatient. Currently patient is requesting to be discharged.
--- NOTE | 2017-08-04 22:45 | P.DS ---
Providers Date of admission: 08/03/17 18:25 Expected date of discharge: 08/04/17 Attending physician: Blu Madison Consults: 08/03/17 17:08 Consult Physician Urgent Consulting Provider: Clay Chang Consult Reason/Comments: hypertension Do you want consulting provider notified?: Yes Primary care physician: Perri Mcqueen Hospital Course: Discharge diagnosis #1 hypertensive urgency on admission. Blood pressure controlled now #2 medication noncompliance #3 depression/bipolar disorder history #4 mild hyponatremia Hospital course Hospital course Patient is a 51-year-old with a past medical history of hypertension was sent to Hospital from [facility] with uncontrolled blood pressure. Patient was found to have SBP greater than 250 MMAC and was sent to Hospital for further management. Patient does have some comprehensive issues. Patient has history of mental health issues and is currently in [place] [facility]. Otherwise patient denied any chest pain or short of breath. No nausea vomiting or abdominal pain. No headache or dizziness. He is currently on clonidine, atenolol, losartan. Patient follows with Dr. Chang as an outpatient. Patient had normal coronaries. Status post cardiac In December 2016. Recent echocardiogram showed normal ejection fraction and left ventricular function. Patient is a poor historian due to underlying mental health issues. Patient was continued on current blood pressure medications including atenolol losartan and Catapres. Hydrochlorothiazide has been added. Patient was advised to follow with Dr. Marin as an outpatient. We will gradually titrate down Catapres as outpatient. Currently patient is requesting to be discharged. Patient is stable to be discharged at this time. Discharge physical examination was done Patient Condition at Discharge: Stable Plan - Discharge Summary New Discharge Prescriptions: New Hydrochlorothiazide [Hydrodiuril] 25 mg PO DAILY #30 tab Continue cloNIDine HCL 0.3 mg PO TID Losartan Potassium [Cozaar] 100 mg PO QAM fluPHENAZine DECANOATE [Prolixin Decanoate] 50 mg IM MO Atenolol 25 mg PO DAILY Discharge Medication List cloNIDine HCL 0.3 mg PO TID 02/11/16 [History] Losartan Potassium [Cozaar] 100 mg PO QAM 03/26/16 [History] fluPHENAZine DECANOATE [Prolixin Decanoate] 50 mg IM MO 02/08/17 [History] Atenolol 25 mg PO DAILY 05/08/17 [History] Hydrochlorothiazide [Hydrodiuril] 25 mg PO DAILY #30 tab 08/04/17 [Rx] Follow up Appointment(s)/Referral(s): Perri Mcqueen MD [Primary Care Provider] - 1-2 days Clay Chang MD [STAFF PHYSICIAN] - 2 Weeks Activity/Diet/Wound Care/Special Instructions: Please return to the Emergency Department if symptoms worsen or any other concerns. Discharge Disposition: HOME SELF-CARE
== END 2017-08-04 16:33 | disposition home or self-care (01) ==
LOC: EC 15:36 → 4MS4W 18:25
PROVIDERS: ADMIT Internal Medicine; ATTEND Internal Medicine
DX: I16.0 Hypertensive urgency (principal); I10 Essential (primary) hypertension; Z91.14 Patient's other noncompliance with medication regimen; F31.9 Bipolar disorder, unspecified; E87.1 Hypo-osmolality and hyponatremia; F17.200 Nicotine dependence, unspecified, uncomplicated; E66.9 Obesity, unspecified; Z68.39 Body mass index [BMI] 39.0-39.9, adult; F41.9 Anxiety disorder, unspecified; F20.9 Schizophrenia, unspecified; Z79.899 Other long term (current) drug therapy; Z88.0 Allergy status to penicillin; Z88.2 Allergy status to sulfonamides; Z88.8 Allergy status to other drugs, medicaments and biological substances; Z91.041 Radiographic dye allergy status; Z91.040 Latex allergy status; G47.30 Sleep apnea, unspecified; Z99.89 Dependence on other enabling machines and devices
CPT/HCPCS: 99284; 36415; 80048; 85025; G0378 ×2; S4990

== ENCOUNTER 2017-08-12 08:22 | Emergency (ER) | payer MEDICARE, OTHER ==
[2017-08-12] MEDS ORDERED: SODIUM CHLORIDE 0.9% 1,000 ML IV STA ×2 (08:29)
--- NOTE | 2017-08-12 08:34 | ED ---
Syncope HPI - General Chief Complaint: Syncope Stated Complaint: hypotension Time Seen by Provider: 08/12/17 08:29 Source: patient, EMS Mode of arrival: EMS Limitations: no limitations - History of Present Illness Initial Comments: Is a 51-year-old female with a fist to this emergency department who is here today for a syncopal episode. She was apparently getting up from a table she passed out briefly EMS was called she appeared be pale. The pressure 82/50 heart rate of 58. After 200 mL of fluid the pressure improved to 100/62 patient had no fevers chills nausea vomiting sweats she complains some left arm pain. No other complaints at this time. She was recently admitted for adjustment of her blood pressure medication. She had been coming in because of high blood pressure. The patient also states she's been having some difficulty with swallowing and has dry mouth. Complaint: loss of consciousness - Related Data Home Medications Medication Instructions Recorded Confirmed cloNIDine HCL 0.3 mg PO TID 02/11/16 08/05/17 Losartan Potassium [Cozaar] 100 mg PO QAM 03/26/16 08/05/17 fluPHENAZine DECANOATE [Prolixin 50 mg IM MO 02/08/17 08/05/17 Decanoate] Atenolol 25 mg PO DAILY 05/08/17 08/05/17 Previous Rx's Medication Instructions Recorded Hydrochlorothiazide [Hydrodiuril] 25 mg PO DAILY #30 tab 08/04/17 Allergies Allergy/AdvReac Type Severity Reaction Status Date / Time diphenhydramine Allergy Itching Verified 08/05/17 14:18 [From Benadryl] Iodinated Contrast- Oral and Allergy Rash/Hives Verified 08/05/17 14:18 IV Dye latex Allergy Rash/Hives Verified 08/05/17 14:18 Penicillins Allergy Rash/Hives Verified 08/05/17 14:18 propoxyphene Allergy Unknown Verified 08/05/17 14:18 Quinolones Allergy Rash/Hives Verified 08/05/17 14:18 Sulfa (Sulfonamide Allergy Rash/Hives Verified 08/05/17 14:18 Antibiotics) Review of Systems ROS Statement: Those systems with pertinent positive or pertinent negative responses have been documented in the HPI. ROS Other: All systems not noted in ROS Statement are negative. Past Medical History Past Medical History: Hypertension, Respiratory Disorder, Sleep Apnea/CPAP/BIPAP Additional Past Medical History / Comment(s): head injury in the past History of Any Multi-Drug Resistant Organisms: None Reported Past Surgical History: Section, Heart Catheterization, Uterine Ablation Additional Past Surgical History / Comment(s): eye surgery, lithotripsy, OVARIAN CYST REMOVED RIGHT SIDE Past Anesthesia/Blood Transfusion Reactions: No Reported Reaction Past Psychological History: Anxiety, Bipolar, Depression, Schizophrenia Smoking Status: Current every day smoker Past Alcohol Use History: None Reported Past Drug Use History: None Reported - Past Family History Mother Family Medical History: Cancer Father Family Medical History: Unable to Obtain General Exam - General Exam Comments Initial Comments: This is a well-developed well-nourished awake alert oriented 3 female Limitations: no limitations General appearance: alert, in no apparent distress Head exam: Present: atraumatic, normocephalic, normal inspection Eye exam: Present: normal appearance, PERRL, EOMI. Absent: scleral icterus, conjunctival injection, periorbital swelling ENT exam: Present: mucous membranes dry Neck exam: Present: normal inspection, full ROM, other (No stridor JVD or bruits ). Absent: tenderness, meningismus, lymphadenopathy Respiratory exam: Present: normal lung sounds bilaterally. Absent: respiratory distress, wheezes, rales, rhonchi, stridor Cardiovascular Exam: Present: regular rate, normal rhythm, normal heart sounds. Absent: systolic murmur, diastolic murmur, rubs, gallop, clicks GI/Abdominal exam: Present: soft, normal bowel sounds. Absent: distended, tenderness, guarding, rebound, rigid Extremities exam: Present: normal inspection, full ROM, normal capillary refill. Absent: tenderness, pedal edema, joint swelling, calf tenderness Back exam: Present: normal inspection Neurological exam: Present: alert, oriented X3, CN II-XII intact Psychiatric exam: Present: normal mood, flat affect Skin exam: Present: warm, dry, intact, normal color. Absent: rash Course Vital Signs 08/12/17 08/12/17 08/12/17 08:26 09:21 10:07 Temperature 97.7 F Pulse Rate 63 60 59 L Respiratory 18 18 16 Rate Blood Pressure 101/52 97/54 104/63 O2 Sat by Pulse 96 96 95 Oximetry 08/12/17 10:56 Temperature Pulse Rate 61 Respiratory 18 Rate Blood Pressure 132/74 O2 Sat by Pulse 95 Oximetry - Reevaluation(s) Reevaluation #1: 08/12/17 09:20 The patient has refused to have a chest x-ray done. She is willing to take responsibility for this. EKG Findings - EKG Results: EKG: interpreted by KORY, sinus rhythm (Sinus rhythm rate 61992 QRS 70 QT since QTC of 472/479 poor R-wave progression no acute ST-T wave changes) Medical Decision Making - Medical Decision Making Patient is much improved her blood pressure is improved after IV fluids the patient still refuses x-ray the patient will be discharged she presents with symptoms consistent with orthostatic etiology. - Lab Data Result diagrams: 08/12/17 08:55 08/12/17 08:55 Lab Results 08/12/17 08/12/17 08/12/17 Range/Units 08:55 08:55 08:55 WBC 9.1 (3.8-10.6) k/uL RBC 5.41 H (3.80-5.40) m/uL Hgb 17.1 H (11.4-16.0) gm/dL Hct 50.7 H (34.0-46.0) % MCV 93.8 (80.0-100.0) fL MCH 31.5 (25.0-35.0) pg MCHC 33.6 (31.0-37.0) g/dL RDW 14.1 (11.5-15.5) % Plt Count 286 (150-450) k/uL Neutrophils % 59 % Lymphocytes % 30 % Monocytes % 7 % Eosinophils % 1 % Basophils % 1 % Neutrophils # 5.4 (1.3-7.7) k/uL Lymphocytes # 2.7 (1.0-4.8) k/uL Monocytes # 0.7 (0-1.0) k/uL Eosinophils # 0.1 (0-0.7) k/uL Basophils # 0.1 (0-0.2) k/uL PT (9.0-12.0) sec INR (<1.2) APTT (22.0-30.0) sec Sodium 133 L (137-145) mmol/L Potassium 4.1 (3.5-5.1) mmol/L Chloride 96 L (98-107) mmol/L Carbon Dioxide 28 (22-30) mmol/L Anion Gap 9 mmol/L BUN 22 H (7-17) mg/dL Creatinine 0.88 (0.52-1.04) mg/dL Est GFR (MDRD) Af Amer >60 (>60 ml/min/1.73 sqM) Est GFR (MDRD) Non-Af >60 (>60 ml/min/1.73 sqM) Glucose 97 (74-99) mg/dL Calcium 9.9 (8.4-10.2) mg/dL Magnesium 1.8 (1.6-2.3) mg/dL Total Bilirubin 0.4 (0.2-1.3) mg/dL AST 23 (14-36) U/L ALT 41 (9-52) U/L Alkaline Phosphatase 74 (38-126) U/L Total Creatine Kinase 91 (30-135) U/L CK-MB (CK-2) 1.6 (0.0-2.4) ng/mL CK-MB (CK-2) Rel Index 1.8 Troponin I <0.012 (0.000-0.034) ng/mL Total Protein 7.1 (6.3-8.2) g/dL Albumin 4.0 (3.5-5.0) g/dL Urine Color Urine Appearance (Clear) Urine pH (5.0-8.0) Ur Specific Glide (1.001-1.035) Urine Protein (Negative) Urine Glucose (UA) (Negative) Urine Ketones (Negative) Urine Blood (Negative) Urine Nitrite (Negative) Urine Bilirubin (Negative) Urine Urobilinogen (<2.0) mg/dL Ur Leukocyte Esterase (Negative) 08/12/17 08/12/17 Range/Units 08:55 08:55 WBC (3.8-10.6) k/uL RBC (3.80-5.40) m/uL Hgb (11.4-16.0) gm/dL Hct (34.0-46.0) % MCV (80.0-100.0) fL MCH (25.0-35.0) pg MCHC (31.0-37.0) g/dL RDW (11.5-15.5) % Plt Count (150-450) k/uL Neutrophils % % Lymphocytes % % Monocytes % % Eosinophils % % Basophils % % Neutrophils # (1.3-7.7) k/uL Lymphocytes # (1.0-4.8) k/uL Monocytes # (0-1.0) k/uL Eosinophils # (0-0.7) k/uL Basophils # (0-0.2) k/uL PT 11.2 (9.0-12.0) sec INR 1.1 (<1.2) APTT 19.7 L (22.0-30.0) sec Sodium (137-145) mmol/L Potassium (3.5-5.1) mmol/L Chloride (98-107) mmol/L Carbon Dioxide (22-30) mmol/L Anion Gap mmol/L BUN (7-17) mg/dL Creatinine (0.52-1.04) mg/dL Est GFR (MDRD) Af Amer (>60 ml/min/1.73 sqM) Est GFR (MDRD) Non-Af (>60 ml/min/1.73 sqM) Glucose (74-99) mg/dL Calcium (8.4-10.2) mg/dL Magnesium (1.6-2.3) mg/dL Total Bilirubin (0.2-1.3) mg/dL AST (14-36) U/L ALT (9-52) U/L Alkaline Phosphatase (38-126) U/L Total Creatine Kinase (30-135) U/L CK-MB (CK-2) (0.0-2.4) ng/mL CK-MB (CK-2) Rel Index Troponin I (0.000-0.034) ng/mL Total Protein (6.3-8.2) g/dL Albumin (3.5-5.0) g/dL Urine Color Yellow Urine Appearance Clear (Clear) Urine pH 6.0 (5.0-8.0) Ur Specific Glide 1.010 (1.001-1.035) Urine Protein Negative (Negative) Urine Glucose (UA) Negative (Negative) Urine Ketones Negative (Negative) Urine Blood Negative (Negative) Urine Nitrite Negative (Negative) Urine Bilirubin Negative (Negative) Urine Urobilinogen <2.0 (<2.0) mg/dL Ur Leukocyte Esterase Negative (Negative) Disposition Clinical Impression: Syncope due to orthostatic hypotension, Vasovagal syncope, Dehydration Disposition: HOME SELF-CARE Condition: Good Instructions: Dehydration (ED) Referrals: Perri Mcqueen MD [Primary Care Provider] - 1-2 days
[2017-08-12 09:09] LABS: Appearance,Urine Clear (Clear); Bilirubin,Urine Negative (Negative); Glucose,Urine (UA) Negative (Negative); Ketones,Urine Negative (Negative); Leukocyte Esterase,Urine Negative (Negative); Nitrite,Urine Negative (Negative); Protein,Urine Negative (Negative); UA Billing (MACRO vs. MICRO) CHEM; Urobilinogen,Urine <2.0 mg/dL (<2.0)
[2017-08-12 09:10] LABS: Basophils # (A) 0.1 k/uL (0-0.2); Basophils % (A) 1 %; CH 31.9; CHCM 34.2; Eosinophils # (A) 0.1 k/uL (0-0.7); Eosinophils % (A) 1 %; HCT 50.7 % (34.0-46.0); HDW 2.05; HGB 17.1 gm/dL (11.4-16.0); Luc % (Auto) 2; Lymphocytes # (A) 2.7 k/uL (1.0-4.8); Lymphocytes % (A) 30 %; MCH 31.5 pg (25.0-35.0); MCHC 33.6 g/dL (31.0-37.0); MCV 93.8 fL (80.0-100.0); Mean Platelet Volume 8.7; Monocytes # (A) 0.7 k/uL (0-1.0); Monocytes % (A) 7 %; Neutrophils # (A) 5.4 k/uL (1.3-7.7); Neutrophils % (A) 59 %; RBC 5.41 m/uL (3.80-5.40); RDW 14.1 % (11.5-15.5); WBC 9.1 k/uL (3.8-10.6); WBC (Perox) 8.98
[2017-08-12 09:20] LABS: ALT 41 U/L (9-52); AST 23 U/L (14-36); Alkaline Phosphatase 74 U/L (38-126); Anion Gap 9 mmol/L; Blood Urea Nitrogen 22 mg/dL (7-17); Calcium 9.9 mg/dL (8.4-10.2); Carbon Dioxide 28 mmol/L (22-30); Chloride 96 mmol/L (98-107); Glucose 97 mg/dL (74-99); Magnesium 1.8 mg/dL (1.6-2.3); Non-African American GFR(MDRD) >60 (>60 ml/min/1.73 sqM); Potassium 4.1 mmol/L (3.5-5.1); Sodium 133 mmol/L (137-145); Total Bilirubin 0.4 mg/dL (0.2-1.3); Total Protein 7.1 g/dL (6.3-8.2)
[2017-08-12 09:23] LABS: INR 1.1 (<1.2); Prothrombin Time 11.2 sec (9.0-12.0)
[2017-08-12 09:41] LABS: Partial Thromboplastin Time 19.7 sec (22.0-30.0)
[2017-08-12 09:57] LABS: Creatine Kinase 91 U/L (30-135)
[2017-08-12 10:11] LABS: Creatine Kinase MB 1.6 ng/mL (0.0-2.4); Troponin I <0.012 ng/mL (0.000-0.034)
[2017-08-12 10:57] VITALS: RESP 18
[2017-08-12 11:13] VITALS: BP 124/78; PULSE 59; TEMP 97
== END 2017-08-12 11:45 | disposition home or self-care (01) ==
LOC: EC 08:22
DX: I95.1 Orthostatic hypotension (principal); E86.0 Dehydration; I10 Essential (primary) hypertension; F41.9 Anxiety disorder, unspecified; F17.200 Nicotine dependence, unspecified, uncomplicated; Z95.5 Presence of coronary angioplasty implant and graft; Z88.0 Allergy status to penicillin; Z88.2 Allergy status to sulfonamides; Z88.8 Allergy status to other drugs, medicaments and biological substances; Z91.040 Latex allergy status; Z91.041 Radiographic dye allergy status; Z79.899 Other long term (current) drug therapy
CPT/HCPCS: 36415; 80053; 81003; 82550; 82553; 83735; 84484; 85025; 85610; 85730; 93005; 96360; 96361; 99284

== ENCOUNTER 2017-08-19 12:36 | Emergency (ER) | payer MEDICARE, OTHER ==
[2017-08-19 12:44] VITALS: RESP 18
[2017-08-19 13:33] VITALS: BP 189/97; PULSE 73; TEMP 98
[2017-08-19] MEDS ORDERED: ONDANSETRON 4 MG/2 ML VIAL IVP STA (13:44)
[2017-08-19] MEDS ORDERED: NICOTINE 21MG/24HR PATCH TRANSDERM STA (13:58)
[2017-08-19] MEDS ORDERED: cloNIDine HCL 0.1 MG TAB PO STA (13:58)
--- NOTE | 2017-08-19 14:15 | ED ---
Chest Pain HPI - General Chief Complaint: Chest Pain Stated Complaint: SOB Time Seen by Provider: 08/19/17 13:44 Source: patient, EMS, RN notes reviewed Mode of arrival: EMS Limitations: no limitations - History of Present Illness Initial Comments: 51-year-old female well-known the emergency room presents today via EMS chief complaint shortness breath chest pain hypertension. Patient states that she has not had blood blood pressure medication since this morning. Patient states that pain started today. Patient states that shortness breath is intermittent but she is asking to smoke a cigarette this time. She states she smokes daily. Patient states she had an episode of nausea but no vomiting. - Related Data Home Medications Medication Instructions Recorded Confirmed cloNIDine HCL 0.3 mg PO TID 02/11/16 08/19/17 Losartan Potassium [Cozaar] 100 mg PO QAM 03/26/16 08/19/17 fluPHENAZine DECANOATE [Prolixin 50 mg IM MO 02/08/17 08/19/17 Decanoate] Carvedilol [Coreg] 12.5 mg PO BID 08/19/17 08/19/17 Triamcinolone 0.1% Cream [Kenalog] 1 applicatio TOPICAL BID 08/19/17 08/19/17 Allergies Allergy/AdvReac Type Severity Reaction Status Date / Time diphenhydramine Allergy Itching Verified 08/19/17 13:26 [From Benadryl] Iodinated Contrast- Oral and Allergy Rash/Hives Verified 08/19/17 13:26 IV Dye latex Allergy Rash/Hives Verified 08/19/17 13:26 Penicillins Allergy Rash/Hives Verified 08/19/17 13:26 propoxyphene Allergy Unknown Verified 08/19/17 13:26 Quinolones Allergy Rash/Hives Verified 08/19/17 13:26 Sulfa (Sulfonamide Allergy Rash/Hives Verified 08/19/17 13:26 Antibiotics) Review of Systems ROS Statement: Those systems with pertinent positive or pertinent negative responses have been documented in the HPI. ROS Other: All systems not noted in ROS Statement are negative. EKG Findings - EKG Comments: EKG Findings:: EKG performed at 12:46 normal sinus rhythm with a rate of 71 SC 190 QRS duration 86 QT/QTC 424/465 Past Medical History Past Medical History: Chest Pain / Angina, Hypertension, Respiratory Disorder, Sleep Apnea/CPAP/BIPAP Additional Past Medical History / Comment(s): head injury in the past History of Any Multi-Drug Resistant Organisms: None Reported Past Surgical History: Section, Heart Catheterization, Uterine Ablation Additional Past Surgical History / Comment(s): eye surgery, lithotripsy, OVARIAN CYST REMOVED RIGHT SIDE Past Anesthesia/Blood Transfusion Reactions: No Reported Reaction Past Psychological History: Anxiety, Bipolar, Depression, Schizophrenia Smoking Status: Current every day smoker Past Alcohol Use History: None Reported Past Drug Use History: None Reported - Past Family History Mother Family Medical History: Cancer Father Family Medical History: Unable to Obtain General Exam Limitations: no limitations General appearance: alert, in no apparent distress, obese ENT exam: Present: normal oropharynx Neck exam: Present: normal inspection, full ROM. Absent: tenderness, meningismus, lymphadenopathy Respiratory exam: Present: normal lung sounds bilaterally. Absent: respiratory distress, wheezes, rales, rhonchi, stridor Cardiovascular Exam: Present: regular rate, normal rhythm, normal heart sounds. Absent: systolic murmur, diastolic murmur, rubs, gallop, clicks Course Vital Signs 08/19/17 08/19/17 12:41 13:30 Temperature 97.5 F L 98.0 F Pulse Rate 75 73 Respiratory 18 18 Rate Blood Pressure 195/107 189/97 O2 Sat by Pulse 95 96 Oximetry Chest Pain MDM - MDM 51-year-old female presented for chest pain shortness with hypertension. Patient is requesting to leave AGAINST MEDICAL ADVICE secondary she to wanted smoke a cigarette. Patient was given nicotine patch and this was not good enough for her. Disposition Clinical Impression: Chest pain, Shortness of breath, Hypertension Disposition: Left Against Medical Advice Referrals: None,Stated [Primary Care Provider] - 1-2 days
== END 2017-08-19 14:14 | disposition left against medical advice (07) ==
LOC: EC 12:36
DX: R07.9 Chest pain, unspecified (principal); R06.02 Shortness of breath; I10 Essential (primary) hypertension; R11.0 Nausea; G47.30 Sleep apnea, unspecified; Z99.89 Dependence on other enabling machines and devices; F31.9 Bipolar disorder, unspecified; F20.9 Schizophrenia, unspecified; F17.210 Nicotine dependence, cigarettes, uncomplicated; Z79.899 Other long term (current) drug therapy; Z88.0 Allergy status to penicillin; Z88.2 Allergy status to sulfonamides; Z88.1 Allergy status to other antibiotic agents; Z91.040 Latex allergy status; Z91.041 Radiographic dye allergy status; Z88.8 Allergy status to other drugs, medicaments and biological substances
CPT/HCPCS: 93005; 99285; S4990

== ENCOUNTER 2017-10-07 14:38 | Emergency (ER) | payer MEDICARE, OTHER ==
[2017-10-07] MEDS ORDERED: ALBUTEROL NEBULIZED 2.5 MG/3 ML INHALATION STA (14:52)
--- NOTE | 2017-10-07 15:15 | ED ---
URI HPI - General Chief Complaint: Upper Respiratory Infection Stated Complaint: MARINA, COUGH Time Seen by Provider: 10/07/17 14:45 Source: EMS, RN notes reviewed, old records reviewed Mode of arrival: EMS Limitations: no limitations - History of Present Illness Initial Comments: This patient is a 51-year-old female presents emergency Department chief complaint of difficulty in breathing, and cough and upper respiratory infection for the past week. Patient reports that she currently lives in a residential. She is still smoking approximately 10 cigarettes a day. She isn't evaluated in the emergency department multiple times for similar complaints. She also complains of some chest discomfort. She denies any nausea or vomiting, denies any fever or chills. She states that she has no abdominal pain, epigastric tenderness or acid reflux like symptoms. Patient states that she has been taking her blood pressure medications as prescribed. - Related Data Home Medications Medication Instructions Recorded Confirmed cloNIDine HCL 0.3 mg PO TID 02/11/16 10/07/17 Losartan Potassium [Cozaar] 100 mg PO QAM 03/26/16 10/07/17 fluPHENAZine DECANOATE [Prolixin 50 mg IM TU 02/08/17 10/07/17 Decanoate] Carvedilol [Coreg] 12.5 mg PO BID 08/19/17 10/07/17 Triamcinolone 0.1% Cream [Kenalog] 1 applicatio TOPICAL BID 08/19/17 10/07/17 Ergocalciferol [Vitamin D2] 50,000 unit PO Q7D 09/19/17 10/07/17 Benzocaine/Menthol Lozeng [Cepacol 1 lozenge MUCOUS MEM Q4HR PRN 10/07/17 lozenge] Previous Rx's Medication Instructions Recorded Albuterol Inhaler [Ventolin Hfa 1 - 2 puff INHALATION Q6HR PRN #1 10/07/17 Inhaler] inhaler Fluticasone Nasal Wisner [Flonase 1 spray EA NOSTRIL DAILY #1 bottle 10/07/17 Nasal Wisner] methylPREDNISolone Dose Pack 4 mg PO DIRECTED #21 package 10/07/17 [Medrol Dose Pack] Allergies Allergy/AdvReac Type Severity Reaction Status Date / Time diphenhydramine Allergy Itching Verified 10/07/17 15:10 [From Benadryl] Iodinated Contrast- Oral and Allergy Rash/Hives Verified 10/07/17 15:10 IV Dye latex Allergy Rash/Hives Verified 10/07/17 15:10 Penicillins Allergy Rash/Hives Verified 10/07/17 15:10 propoxyphene Allergy Unknown Verified 10/07/17 15:10 Quinolones Allergy Rash/Hives Verified 10/07/17 15:10 Sulfa (Sulfonamide Allergy Rash/Hives Verified 10/07/17 15:10 Antibiotics) Review of Systems ROS Statement: Those systems with pertinent positive or pertinent negative responses have been documented in the HPI. ROS Other: All systems not noted in ROS Statement are negative. Past Medical History Past Medical History: Chest Pain / Angina, Hypertension, Respiratory Disorder, Sleep Apnea/CPAP/BIPAP Additional Past Medical History / Comment(s): head injury in the past History of Any Multi-Drug Resistant Organisms: None Reported Past Surgical History: Section, Heart Catheterization, Uterine Ablation Additional Past Surgical History / Comment(s): eye surgery, lithotripsy, OVARIAN CYST REMOVED RIGHT SIDE Past Anesthesia/Blood Transfusion Reactions: No Reported Reaction Past Psychological History: Anxiety, Bipolar, Depression, Schizophrenia Smoking Status: Current every day smoker Past Alcohol Use History: None Reported Past Drug Use History: None Reported - Past Family History Mother Family Medical History: Cancer Father Family Medical History: Unable to Obtain General Exam - General Exam Comments Initial Comments: This is a 51-year-old female. No distress. Limitations: no limitations General appearance: alert, in no apparent distress Head exam: Present: atraumatic, normocephalic, normal inspection Eye exam: Present: normal appearance, PERRL, EOMI. Absent: scleral icterus, conjunctival injection, periorbital swelling ENT exam: Present: normal exam Neck exam: Present: normal inspection. Absent: tenderness, meningismus, lymphadenopathy Respiratory exam: Present: normal lung sounds bilaterally. Absent: respiratory distress, wheezes, rales, rhonchi, stridor Cardiovascular Exam: Present: regular rate, normal rhythm, normal heart sounds. Absent: systolic murmur, diastolic murmur, rubs, gallop, clicks GI/Abdominal exam: Present: soft, normal bowel sounds. Absent: distended, tenderness, guarding, rebound, rigid Extremities exam: Present: normal inspection, full ROM, normal capillary refill. Absent: tenderness, pedal edema, joint swelling, calf tenderness Back exam: Present: normal inspection Neurological exam: Present: alert, oriented X3, CN II-XII intact, normal gait Psychiatric exam: Present: normal affect, normal mood Skin exam: Present: warm, dry, intact, normal color. Absent: rash Course Vital Signs 10/07/17 10/07/17 10/07/17 14:41 15:03 15:31 Temperature 99.0 F Pulse Rate 67 64 68 Respiratory 18 Rate Blood Pressure 128/78 O2 Sat by Pulse 99 Oximetry 10/07/17 17:20 Temperature 98.7 F Pulse Rate 72 Respiratory 20 Rate Blood Pressure 145/78 O2 Sat by Pulse 96 Oximetry Medical Decision Making - Medical Decision Making This patient is a 51-year-old female well-known to the emergency department to clean difficulty breathing and cough for the past week. Patient's vital signs are all stable. Patient otherwise appears well. She also complains of some chest discomfort. Patient's EKG was reviewed and normal. Negative troponin. Chest x-ray shows evidence of chronic changes, no acute abnormalities noted. Patient's lungs are clear auscultation. She did receive albuterol breathing treatment however does report that she feels better. She requests food before she is discharged. Discussed that patient likely has a mild bronchitis. Discharged with albuterol inhaler and Flonase, and steroid taper pack. Discussed following up with her primary care provider. She'll be discharged back to her residential. - Lab Data Result diagrams: 10/07/17 15:26 Lab Results 10/07/17 10/07/17 10/07/17 Range/Units 15:26 15:26 15:26 WBC 11.3 H (3.8-10.6) k/uL RBC 4.97 (3.80-5.40) m/uL Hgb 16.1 H (11.4-16.0) gm/dL Hct 46.9 H (34.0-46.0) % MCV 94.3 (80.0-100.0) fL MCH 32.4 (25.0-35.0) pg MCHC 34.3 (31.0-37.0) g/dL RDW 12.7 (11.5-15.5) % Plt Count 334 (150-450) k/uL Neutrophils % 53 % Lymphocytes % 38 % Monocytes % 5 % Eosinophils % 2 % Basophils % 1 % Neutrophils # 6.0 (1.3-7.7) k/uL Lymphocytes # 4.2 (1.0-4.8) k/uL Monocytes # 0.6 (0-1.0) k/uL Eosinophils # 0.2 (0-0.7) k/uL Basophils # 0.1 (0-0.2) k/uL Troponin I <0.012 (0.000-0.034) ng/mL Influenza Type A RNA Not Detected (Not Detectd) Influenza Type B (PCR) Not Detected (Not Detectd) 10/07/17 15:18 EKG shows normal sinus rhythm with septal infarct age undetermined. Injury of 65 bpm.. Interval 182 ms. QRS duration 82 ms. QT QTc is 450/460 ms. No evidence of ST elevation or T-wave inversion. EKG shows no acute abdomen or maladies compared to previous EKG. - Radiology Data Radiology results: report reviewed Chest x-ray shows chronic changes and mild cardiomegaly without any acute cardiopulmonary process. Disposition Clinical Impression: Cough, Bronchitis Disposition: HOME SELF-CARE Condition: Good Instructions: Upper Respiratory Infection (ED) Additional Instructions: Patient advised to use the albuterol inhaler and nasal spray as directed. Take [id number] decongestant medication such as Sudafed, Motrin and Tylenol. Patient should return to the emergency department if any alarming signs or symptoms occur. Prescriptions: Albuterol Inhaler [Ventolin Hfa Inhaler] 1 - 2 puff INHALATION Q6HR PRN #1 inhaler PRN Reason: Shortness Of Breath Fluticasone Nasal Wisner [Flonase Nasal Wisner] 1 spray EA NOSTRIL DAILY #1 bottle methylPREDNISolone Dose Pack [Medrol Dose Pack] 4 mg PO DIRECTED #21 package Referrals: None,Stated [Primary Care Provider] - 1-2 days Jody Lopez MD [STAFF PHYSICIAN] - 1-2 days Time of Disposition: 17:01
[2017-10-07 15:45] LABS: Basophils # (A) 0.1 k/uL (0-0.2); Basophils % (A) 1 %; Eosinophils # (A) 0.2 k/uL (0-0.7); Eosinophils % (A) 2 %; HCT 46.9 % (34.0-46.0); HGB 16.1 gm/dL (11.4-16.0); Lymphocytes # (A) 4.2 k/uL (1.0-4.8); Lymphocytes % (A) 38 %; MCH 32.4 pg (25.0-35.0); MCHC 34.3 g/dL (31.0-37.0); MCV 94.3 fL (80.0-100.0); Mean Platelet Volume 7.3; Monocytes # (A) 0.6 k/uL (0-1.0); Monocytes % (A) 5 %; Neutrophils % (A) 53 %; Platelet Count 334 k/uL (150-450); RBC 4.97 m/uL (3.80-5.40); RDW 12.7 % (11.5-15.5); WBC 11.3 k/uL (3.8-10.6)
--- NOTE | 2017-10-07 16:07 | XR ---
EXAMINATION TYPE: XR chest 2V DATE OF EXAM: 10/07/2017 COMPARISON: Chest x-ray September 19, 2017 and older studies HISTORY: Chest pain. TECHNIQUE: Frontal and lateral views of the chest are obtained. FINDINGS: There is chronic parenchymal change without suspicious new focal air space opacity, pleura l effusion, or pneumothorax seen. The cardiac silhouette size is stable and mildly enlarged. The o sseous structures are intact. IMPRESSION: Chronic changes and mild cardiomegaly without acute pulmonary process.
[2017-10-07 17:39] VITALS: BP 145/78; PULSE 72; RESP 20; TEMP 98.7
== END 2017-10-07 17:45 | disposition home or self-care (01) ==
LOC: EC 14:38
DX: J40 Bronchitis, not specified as acute or chronic (principal); I51.7 Cardiomegaly; R94.31 Abnormal electrocardiogram [ECG] [EKG]; I10 Essential (primary) hypertension; G47.30 Sleep apnea, unspecified; F20.9 Schizophrenia, unspecified; F17.200 Nicotine dependence, unspecified, uncomplicated; Z79.899 Other long term (current) drug therapy; Z88.0 Allergy status to penicillin; Z88.1 Allergy status to other antibiotic agents; Z88.2 Allergy status to sulfonamides; Z88.8 Allergy status to other drugs, medicaments and biological substances; Z91.040 Latex allergy status; Z91.041 Radiographic dye allergy status; Z99.89 Dependence on other enabling machines and devices; Z95.9 Presence of cardiac and vascular implant and graft, unspecified
CPT/HCPCS: 36415; 71046; 84484; 85025; 87502; 93005; 94640; 99285

== ENCOUNTER 2017-10-21 08:56 | Emergency (ER) | payer MEDICARE, OTHER ==
[2017-10-21] MEDS ORDERED: ONDANSETRON ODT 4 MG TAB PO STA (09:20)
[2017-10-21] MEDS ORDERED: cloNIDine HCL 0.1 MG TAB PO STA (09:20)
--- NOTE | 2017-10-21 09:22 | ED ---
General Adult HPI - General Stated complaint: Chest Pain Time Seen by Provider: 10/21/17 08:57 Source: RN notes reviewed, old records reviewed - History of Present Illness Initial comments: This is a 52-year-old female to the ER for evaluation regards to chest pain, patient as well as this establishment for multiple ER visits for similar, patient did call EMS today from [facility] where she lives, patient was complaining of chest pain. Patient does struggle with anxiety and hypertension , patient is a poor historian history isn't. Patient EMS and patient's facility - Related Data Home Medications Medication Instructions Recorded Confirmed cloNIDine HCL 0.3 mg PO TID 02/11/16 10/07/17 Losartan Potassium [Cozaar] 100 mg PO QAM 03/26/16 10/07/17 fluPHENAZine DECANOATE [Prolixin 50 mg IM TU 02/08/17 10/07/17 Decanoate] Carvedilol [Coreg] 12.5 mg PO BID 08/19/17 10/07/17 Triamcinolone 0.1% Cream [Kenalog] 1 applicatio TOPICAL BID 08/19/17 10/07/17 Ergocalciferol [Vitamin D2] 50,000 unit PO Q7D 09/19/17 10/07/17 Benzocaine/Menthol Lozeng [Cepacol 1 lozenge MUCOUS MEM Q4HR PRN 10/07/17 lozenge] Previous Rx's Medication Instructions Recorded Albuterol Inhaler [Ventolin Hfa 1 - 2 puff INHALATION Q6HR PRN #1 10/07/17 Inhaler] inhaler Fluticasone Nasal [place] [Flonase 1 spray EA NOSTRIL DAILY #1 bottle 10/07/17 Nasal [place]] methylPREDNISolone Dose Pack 4 mg PO DIRECTED #21 package 10/07/17 [Medrol Dose Pack] Allergies Allergy/AdvReac Type Severity Reaction Status Date / Time diphenhydramine Allergy Itching Verified 10/07/17 15:10 [From Benadryl] Iodinated Contrast- Oral and Allergy Rash/Hives Verified 10/07/17 15:10 IV Dye latex Allergy Rash/Hives Verified 10/07/17 15:10 Penicillins Allergy Rash/Hives Verified 10/07/17 15:10 propoxyphene Allergy Unknown Verified 10/07/17 15:10 Quinolones Allergy Rash/Hives Verified 10/07/17 15:10 Sulfa (Sulfonamide Allergy Rash/Hives Verified 10/07/17 15:10 Antibiotics) Review of Systems ROS Statement: Those systems with pertinent positive or pertinent negative responses have been documented in the HPI. ROS Other: All systems not noted in ROS Statement are negative. Past Medical History Past Medical History: Chest Pain / Angina, Hypertension, Respiratory Disorder, Sleep Apnea/CPAP/BIPAP Additional Past Medical History / Comment(s): head injury in the past History of Any Multi-Drug Resistant Organisms: None Reported Past Surgical History: Section, Heart Catheterization, Uterine Ablation Additional Past Surgical History / Comment(s): eye surgery, lithotripsy, OVARIAN CYST REMOVED RIGHT SIDE Past Anesthesia/Blood Transfusion Reactions: No Reported Reaction Past Psychological History: Anxiety, Bipolar, Depression, Schizophrenia Smoking Status: Current every day smoker Past Alcohol Use History: None Reported Past Drug Use History: None Reported - Past Family History Mother Family Medical History: Cancer Father Family Medical History: Unable to Obtain General Exam General appearance: alert, in no apparent distress Head exam: Present: atraumatic, normocephalic, normal inspection Eye exam: Present: normal appearance, PERRL, EOMI. Absent: scleral icterus, conjunctival injection, periorbital swelling ENT exam: Present: normal exam, mucous membranes moist Neck exam: Present: normal inspection. Absent: tenderness, meningismus, lymphadenopathy Respiratory exam: Present: normal lung sounds bilaterally. Absent: respiratory distress, wheezes, rales, rhonchi, stridor Cardiovascular Exam: Present: regular rate, normal rhythm, normal heart sounds. Absent: systolic murmur, diastolic murmur, rubs, gallop, clicks GI/Abdominal exam: Present: soft, normal bowel sounds. Absent: distended, tenderness, guarding, rebound, rigid Extremities exam: Present: normal inspection, full ROM, normal capillary refill. Absent: tenderness, pedal edema, joint swelling, calf tenderness Back exam: Present: normal inspection Neurological exam: Present: alert, oriented X3, CN II-XII intact Psychiatric exam: Present: normal affect, normal mood Skin exam: Present: warm, dry, intact, normal color. Absent: rash Course - Reevaluation(s) Reevaluation #1: 10/21/17 09:21 Patient currently with no complaints Medical Decision Making - Medical Decision Making 52 female the ER for evaluation of chest pain, anxiety, symptoms resolved, blood pressure elevated which is controlled at this time, patient will be discharged Disposition Clinical Impression: Chest pain, Uncontrolled hypertension, Psychosis, Anxiety Disposition: HOME SELF-CARE Condition: Good Instructions: Chest Pain (ED) Referrals: Perri Mcqueen MD [Primary Care Provider] - 1-2 days
[2017-10-21 09:23] VITALS: PULSE 65; RESP 18; TEMP 98.5
[2017-10-21 09:50] VITALS: BP 166/102
== END 2017-10-21 09:49 | disposition home or self-care (01) ==
LOC: EC 08:56
DX: R07.9 Chest pain, unspecified (principal); I10 Essential (primary) hypertension; F29 Unspecified psychosis not due to a substance or known physiological condition; F41.9 Anxiety disorder, unspecified; G47.30 Sleep apnea, unspecified; Z99.89 Dependence on other enabling machines and devices; F31.9 Bipolar disorder, unspecified; F20.9 Schizophrenia, unspecified; F17.200 Nicotine dependence, unspecified, uncomplicated; Z79.899 Other long term (current) drug therapy; Z88.0 Allergy status to penicillin; Z88.1 Allergy status to other antibiotic agents; Z88.2 Allergy status to sulfonamides; Z91.040 Latex allergy status; Z91.041 Radiographic dye allergy status; Z88.8 Allergy status to other drugs, medicaments and biological substances
CPT/HCPCS: 99285

== ENCOUNTER 2017-10-26 08:40 | Emergency (ER) | payer MEDICARE, OTHER ==
[2017-10-26 08:50] VITALS: BP 146/80; PULSE 71; RESP 16
[2017-10-26 08:51] VITALS: TEMP 97
== END 2017-10-26 09:10 ==
LOC: EC 08:40
DX: R42 Dizziness and giddiness (principal); I10 Essential (primary) hypertension
CPT/HCPCS: 99499

== ENCOUNTER 2017-11-15 10:07 | Emergency (ER) | payer MEDICARE, OTHER ==
[2017-11-15 10:13] VITALS: BP 162/98; PULSE 71; RESP 17; TEMP 97.5
--- NOTE | 2017-11-15 10:42 | ED ---
Chest Pain HPI - General Chief Complaint: Chest Pain Stated Complaint: Chest Pain/SOB Time Seen by Provider: 11/15/17 10:26 Source: patient Mode of arrival: EMS Limitations: no limitations - History of Present Illness Initial Comments: 52 years old female presented with the chest pain she said chest pain has resolved but she is concerned about her blood pressure which is hard to control his 162/98 then she said she feels okay now and she wants to go and smoke is why she just wants relief. No headaches no chest pain blood pressure is high no shortness of breath no abdominal pain no frequency urgency dysuria - Related Data Home Medications Medication Instructions Recorded Confirmed cloNIDine HCL 0.3 mg PO QID 02/11/16 11/15/17 Losartan Potassium [Cozaar] 100 mg PO QAM 03/26/16 11/15/17 fluPHENAZine DECANOATE [Prolixin 50 mg IM MO 02/08/17 11/15/17 Decanoate] Carvedilol [Coreg] 12.5 mg PO BID 08/19/17 11/15/17 Triamcinolone 0.1% Cream [Kenalog] 1 applicatio TOPICAL BID PRN 08/19/17 Ergocalciferol [Vitamin D2] 50,000 unit PO Q7D 09/19/17 11/15/17 Albuterol Inhaler [Ventolin Hfa 1 - 2 puff INHALATION RT-Q6H PRN 11/15/17 Inhaler] cloNIDine HCL [Catapres] 0.1 mg PO BID PRN 11/15/17 11/15/17 Previous Rx's Medication Instructions Recorded Fluticasone Nasal [place] [Flonase 1 spray EA NOSTRIL DAILY #1 bottle 10/07/17 Nasal [place]] Allergies Allergy/AdvReac Type Severity Reaction Status Date / Time diphenhydramine Allergy Itching Verified 11/15/17 10:12 [From Benadryl] Iodinated Contrast- Oral and Allergy Rash/Hives Verified 11/15/17 10:12 IV Dye latex Allergy Rash/Hives Verified 11/15/17 10:12 Penicillins Allergy Rash/Hives Verified 11/15/17 10:12 propoxyphene Allergy Unknown Verified 11/15/17 10:12 Quinolones Allergy Rash/Hives Verified 11/15/17 10:12 Sulfa (Sulfonamide Allergy Rash/Hives Verified 11/15/17 10:12 Antibiotics) Review of Systems ROS Statement: Those systems with pertinent positive or pertinent negative responses have been documented in the HPI. ROS Other: All systems not noted in ROS Statement are negative. EKG Findings - EKG Comments: EKG Findings:: EKG is normal sinus rhythm ventricular rate is 70 MO interval is 186 QRS duration is 88 QT/QTc is 416/449, degree of this EKG did not reveal any ST elevation or ST depression Past Medical History Past Medical History: Chest Pain / Angina, Hypertension, Respiratory Disorder, Sleep Apnea/CPAP/BIPAP Additional Past Medical History / Comment(s): head injury in the past History of Any Multi-Drug Resistant Organisms: None Reported Past Surgical History: Section, Heart Catheterization, Uterine Ablation Additional Past Surgical History / Comment(s): eye surgery, lithotripsy, OVARIAN CYST REMOVED RIGHT SIDE Past Anesthesia/Blood Transfusion Reactions: No Reported Reaction Past Psychological History: Anxiety, Bipolar, Depression, Schizophrenia Smoking Status: Current every day smoker Past Alcohol Use History: None Reported Past Drug Use History: None Reported - Past Family History Mother Family Medical History: Cancer Father Family Medical History: Unable to Obtain General Exam - General Exam Comments Initial Comments: General: The patient is awake and alert, in no distress, and does not appear acutely ill. Skin: Skin is warm and dry and no rashes or lesions are noted. Eye: Pupils are equal, round and reactive to light, extra-ocular movements are intact; there is normal conjunctiva bilaterally. Ears, nose, mouth and throat: There are moist mucous membranes and no oral lesions. Neck: The neck is supple, there is no tenderness or JVD. Cardiovascular: There is a regular rate and rhythm. No murmur, rub or gallop is appreciated. Respiratory: To auscultation bilateral, no rales or rhonchi noticed Gastrointestinal: Soft, non-distended, non-tender abdomen without masses or organomegaly noted. There is no rebound or guarding present. Bowel sounds are unremarkable. Back: There is no tenderness to palpation in the midline. There is no obvious deformity. Musculoskeletal: Normal ROM, no tenderness, There is no pedal edema. There is no calf tenderness or swelling. No cords were appreciated. Neurological: CN II-XII intact, Cranial nerves III through XII are intact. There are no obvious motor or sensory deficits. Coordination appears grossly intact. Speech is normal. Psychiatric: Cooperative, appropriate mood & affect, normal judgment. Limitations: no limitations Course Vital Signs 11/15/17 10:09 Temperature 97.5 F L Pulse Rate 71 Respiratory 17 Rate Blood Pressure 162/98 O2 Sat by Pulse 97 Oximetry She said she has no chest pain now in concern is her blood pressure but she wants to go smoke she do not want to stay for the investigations and she will follow-up with her doctor Tayla for her blood pressure Disposition Clinical Impression: Hypertension, Chest pain Disposition: Left Against Medical Advice Referrals: Perri Mcqueen MD [Primary Care Provider] - 1-2 days
== END 2017-11-15 10:41 | disposition left against medical advice (07) ==
LOC: EC 10:07
DX: R07.9 Chest pain, unspecified (principal); I10 Essential (primary) hypertension; G47.30 Sleep apnea, unspecified; Z99.89 Dependence on other enabling machines and devices; F17.200 Nicotine dependence, unspecified, uncomplicated; Z79.899 Other long term (current) drug therapy; Z88.0 Allergy status to penicillin; Z88.1 Allergy status to other antibiotic agents; Z88.2 Allergy status to sulfonamides; Z91.040 Latex allergy status; Z91.041 Radiographic dye allergy status; Z88.8 Allergy status to other drugs, medicaments and biological substances
CPT/HCPCS: 93005; 99285

== ENCOUNTER 2017-11-22 09:09 | Emergency (ER) | payer MEDICARE, OTHER ==
[2017-11-22 09:34] VITALS: RESP 16; TEMP 98
[2017-11-22] MEDS ORDERED: KETOROLAC 60 MG/2 ML VIAL IM STA (10:33)
--- NOTE | 2017-11-22 10:38 | ED ---
General Adult HPI - General Chief complaint: Fall Stated complaint: FALL DOWN 3 STEP, BACK AND REAR END PAIN Time Seen by Provider: 11/22/17 10:00 Source: patient, RN notes reviewed Mode of arrival: ambulatory Limitations: no limitations - History of Present Illness Initial comments: This is a 52-year-old female who presents emergency department stating that she fell outside today down 3 steps. Patient complains of left upper back pain. Patient has full range of motion she says of her shoulders and arms. Patient denies hurting her neck. Patient denies hitting her head patient denies any loss of consciousness or head injury. Patient's only complaint is upper back pain. Patient denies chest pain. Patient denies abdominal pain. Patient denies any lower extremity pain. - Related Data Home Medications Medication Instructions Recorded Confirmed cloNIDine HCL 0.3 mg PO QID 02/11/16 11/22/17 Losartan Potassium [Cozaar] 100 mg PO DAILY@1200 03/26/16 11/22/17 Ergocalciferol [Vitamin D2] 50,000 unit PO Q14D 09/19/17 11/22/17 cloNIDine HCL [Catapres] 0.1 mg PO BID PRN 11/15/17 11/22/17 Carvedilol [Coreg] 25 mg PO BID 11/22/17 11/22/17 Hydrochlorothiazide [Hydrodiuril] 25 mg PO DAILY 11/22/17 11/22/17 Previous Rx's Medication Instructions Recorded Ibuprofen [Motrin] 600 mg PO Q6HR PRN #20 tab 11/22/17 traMADol HCl [Ultram] 50 mg PO Q6H PRN #10 tab 11/22/17 Allergies Allergy/AdvReac Type Severity Reaction Status Date / Time diphenhydramine Allergy Itching Verified 11/22/17 10:56 [From Benadryl] Iodinated Contrast- Oral and Allergy Rash/Hives Verified 11/22/17 10:56 IV Dye latex Allergy Rash/Hives Verified 11/22/17 10:56 Penicillins Allergy Rash/Hives Verified 11/22/17 10:56 propoxyphene Allergy Unknown Verified 11/22/17 10:56 Quinolones Allergy Rash/Hives Verified 11/22/17 10:56 Sulfa (Sulfonamide Allergy Rash/Hives Verified 11/22/17 10:56 Antibiotics) Review of Systems ROS Statement: Those systems with pertinent positive or pertinent negative responses have been documented in the HPI. ROS Other: All systems not noted in ROS Statement are negative. Past Medical History Past Medical History: Chest Pain / Angina, Hypertension, Respiratory Disorder, Sleep Apnea/CPAP/BIPAP Additional Past Medical History / Comment(s): head injury in the past History of Any Multi-Drug Resistant Organisms: None Reported Past Surgical History: Section, Heart Catheterization, Uterine Ablation Additional Past Surgical History / Comment(s): eye surgery, lithotripsy, OVARIAN CYST REMOVED RIGHT SIDE Past Anesthesia/Blood Transfusion Reactions: No Reported Reaction Past Psychological History: Anxiety, Bipolar, Depression, Schizophrenia Smoking Status: Current every day smoker Past Alcohol Use History: None Reported Past Drug Use History: None Reported - Past Family History Mother Family Medical History: Cancer Father Family Medical History: Unable to Obtain General Exam - General Exam Comments Initial Comments: GENERAL Patient is well-developed and well-nourished. Patient is in mild distress. EYES Patient's pupils are equal and round. Extraocular motion is intact SKIN Unremarkable NEURO The patient is alert and oriented 3 PYSCH Patient has normal interpersonal interactions. MUSCULOSKELETAL Patient's left upper thorax is tender but there is no spinous process tenderness and no scapular tenderness is the portion of the back between the spine and the scapula is tender. No bruising swelling or redness is noted as no signs of injury on the patient's back Limitations: no limitations Course Vital Signs 11/22/17 09:32 Temperature 98.0 F Pulse Rate 71 Respiratory 16 Rate Blood Pressure 156/71 O2 Sat by Pulse 98 Oximetry Disposition Clinical Impression: Back contusion Disposition: HOME SELF-CARE Condition: Good Instructions: Fall Prevention for Older Adults (ED), Contusion in Adults (ED) Prescriptions: Ibuprofen [Motrin] 600 mg PO Q6HR PRN #20 tab PRN Reason: For pain traMADol HCl [Ultram] 50 mg PO Q6H PRN #10 tab PRN Reason: When necessary for pain Referrals: Perri Mcqueen MD [Primary Care Provider] - 1-2 days Time of Disposition: 11:26
--- NOTE | 2017-11-22 11:36 | XR ---
EXAMINATION TYPE: XR thoracic spine 2V DATE OF EXAM: 11/22/2017 COMPARISON: NONE HISTORY: 52-year-old female back pain after fall TECHNIQUE: 3 views FINDINGS: Small T12 ribs. All pedicles are visualized. There is rightward truncal shift and accentuated mid tho racic kyphosis. Mild to moderate endplate spondylosis especially in the mid thoracic spine. Vertebral body heights are maintained. Some limited visualization of upper most thoracic vertebral bodies due to overlying patient's shoulders. Alignment appears maintained to the extent visualized. IMPRESSION: Mild to moderate endplate spondylosis especially in the mid thoracic spine with accentuated thoracic kyphosis. No vertebral compression collapse or malalignment. Some limitation in visualization of the upper most thoracic vertebral bodies.
[2017-11-22 11:39] VITALS: BP 156/78; PULSE 90
== END 2017-11-22 11:37 | disposition home or self-care (01) ==
LOC: EC 09:09
DX: S20.222A Contusion of left back wall of thorax, initial encounter (principal); I10 Essential (primary) hypertension; G47.30 Sleep apnea, unspecified; F41.9 Anxiety disorder, unspecified; F17.200 Nicotine dependence, unspecified, uncomplicated; Z99.89 Dependence on other enabling machines and devices; Z79.899 Other long term (current) drug therapy; Z88.0 Allergy status to penicillin; Z88.1 Allergy status to other antibiotic agents; Z88.2 Allergy status to sulfonamides; Z88.5 Allergy status to narcotic agent; Z88.8 Allergy status to other drugs, medicaments and biological substances; Z91.040 Latex allergy status; Z91.041 Radiographic dye allergy status; W10.9XXA Fall (on) (from) unspecified stairs and steps, initial encounter; Y92.009 Unspecified place in unspecified non-institutional (private) residence as the place of occurrence of the external cause
CPT/HCPCS: 72070; 99283; 96372; J1885

== ENCOUNTER 2017-11-29 07:54 | Emergency (ER) | payer MEDICARE, OTHER ==
[2017-11-29 08:00] VITALS: BP 140/85; PULSE 70; RESP 18; TEMP 97.5
--- NOTE | 2017-11-29 08:27 | ED ---
URI HPI - General Chief Complaint: Upper Respiratory Infection Stated Complaint: SOB Time Seen by Provider: 11/29/17 08:15 Source: patient, EMS, RN notes reviewed Mode of arrival: EMS Limitations: no limitations - History of Present Illness Initial Comments: 52-year-old female presents emergency Department chief complaint cough congestion. Patient states that she bilaterally coughs daily because she smokes. Patient states that she was smoking this morning and started coughing. She states she feels better at this time. Patient has fever, chills, chest pain, shortness of breath. Patient states that her shortness breath that she had resolved. Patient denies any nausea vomiting diarrhea constipation. Patient to call her medications morning. - Related Data Home Medications Medication Instructions Recorded Confirmed cloNIDine HCL 0.3 mg PO QID 02/11/16 11/29/17 Losartan Potassium [Cozaar] 100 mg PO DAILY@1200 03/26/16 11/29/17 Ergocalciferol [Vitamin D2] 50,000 unit PO Q7D 09/19/17 11/29/17 cloNIDine HCL [Catapres] 0.1 mg PO BID PRN 11/15/17 11/29/17 Carvedilol [Coreg] 12.5 mg PO BID 11/29/17 11/29/17 Nystatin 100,000 Unit/gm Powd 1 applic TOPICAL BID PRN 11/29/17 11/29/17 [Mycostatin Powder] fluPHENAZine DECANOATE [Prolixin 25 mg IM Q7D 11/29/17 11/29/17 Decanoate] Allergies Allergy/AdvReac Type Severity Reaction Status Date / Time diphenhydramine Allergy Itching Verified 11/29/17 08:20 [From Benadryl] Iodinated Contrast- Oral and Allergy Rash/Hives Verified 11/29/17 08:20 IV Dye latex Allergy Rash/Hives Verified 11/29/17 08:20 Penicillins Allergy Rash/Hives Verified 11/29/17 08:20 propoxyphene Allergy Unknown Verified 11/29/17 08:20 Quinolones Allergy Rash/Hives Verified 11/29/17 08:20 Sulfa (Sulfonamide Allergy Rash/Hives Verified 11/29/17 08:20 Antibiotics) Review of Systems ROS Statement: Those systems with pertinent positive or pertinent negative responses have been documented in the HPI. ROS Other: All systems not noted in ROS Statement are negative. Past Medical History Past Medical History: Chest Pain / Angina, Hypertension, Respiratory Disorder, Sleep Apnea/CPAP/BIPAP Additional Past Medical History / Comment(s): head injury in the past History of Any Multi-Drug Resistant Organisms: None Reported Past Surgical History: Section, Heart Catheterization, Uterine Ablation Additional Past Surgical History / Comment(s): eye surgery, lithotripsy, OVARIAN CYST REMOVED RIGHT SIDE Past Anesthesia/Blood Transfusion Reactions: No Reported Reaction Past Psychological History: Anxiety, Bipolar, Depression, Schizophrenia Smoking Status: Current every day smoker Past Alcohol Use History: None Reported Past Drug Use History: None Reported - Past Family History Mother Family Medical History: Cancer Father Family Medical History: Unable to Obtain General Exam Limitations: no limitations General appearance: alert, in no apparent distress Head exam: Present: atraumatic, normocephalic, normal inspection Eye exam: Present: normal appearance, PERRL, EOMI. Absent: scleral icterus, conjunctival injection, periorbital swelling ENT exam: Present: normal exam, normal oropharynx, mucous membranes moist Neck exam: Present: normal inspection, full ROM. Absent: tenderness, meningismus, lymphadenopathy Respiratory exam: Present: normal lung sounds bilaterally. Absent: respiratory distress, wheezes, rales, rhonchi, stridor Cardiovascular Exam: Present: regular rate, normal rhythm, normal heart sounds. Absent: systolic murmur, diastolic murmur, rubs, gallop, clicks Course Vital Signs 11/29/17 07:58 Temperature 97.5 F L Pulse Rate 70 Respiratory 18 Rate Blood Pressure 140/85 O2 Sat by Pulse 97 Oximetry Medical Decision Making - Medical Decision Making 52-year-old female presented emergency department for cough congestion history of shortness breath. Patient's symptoms have resolved. Symptoms started when she is smoking. Patient is requesting to be discharged did offer chest x-ray, lab work she declines. They should vitals are stable. Disposition Clinical Impression: Upper respiratory infection Disposition: HOME SELF-CARE Condition: Stable Instructions: Upper Respiratory Infection (ED) Additional Instructions: Please return to the Emergency Department if symptoms worsen or any other concerns. Referrals: Perri Mcqueen MD [Primary Care Provider] - 1-2 days Time of Disposition: 08:27
== END 2017-11-29 08:32 | disposition home or self-care (01) ==
LOC: SUPCPDRO 07:54 → EC 07:54
DX: J06.9 Acute upper respiratory infection, unspecified (principal); I10 Essential (primary) hypertension; G47.30 Sleep apnea, unspecified; Z99.89 Dependence on other enabling machines and devices; F20.9 Schizophrenia, unspecified; F31.9 Bipolar disorder, unspecified; F41.9 Anxiety disorder, unspecified; F17.200 Nicotine dependence, unspecified, uncomplicated; Z79.899 Other long term (current) drug therapy; Z88.0 Allergy status to penicillin; Z88.1 Allergy status to other antibiotic agents; Z88.2 Allergy status to sulfonamides; Z91.040 Latex allergy status; Z91.041 Radiographic dye allergy status; Z88.8 Allergy status to other drugs, medicaments and biological substances
CPT/HCPCS: 99283

== ENCOUNTER 2017-12-06 10:34 | Emergency (ER) | payer MEDICARE, OTHER ==
[2017-12-06 10:46] VITALS: BP 160/79; PULSE 73; TEMP 98.7
[2017-12-06 11:29] VITALS: RESP 18
--- NOTE | 2017-12-06 11:30 | ED ---
General Adult HPI - General Chief complaint: Shortness of Breath Stated complaint: SOB Time Seen by Provider: 12/06/17 10:45 Source: patient, EMS, RN notes reviewed Mode of arrival: EMS Limitations: no limitations - History of Present Illness Initial comments: This a 52-year-old female who presents emergency Department stating she is thirsty and hungry she did mention she was short of breath but she is oxygenating 98-99% on room air and she is walking around the emergency department without any difficult to breathing. Patient comes emergency Department frequently with a variety of complaints per patient denies chest pain today. Patient denies any headache patient denies numbness weakness. Patient denies any abdominal pain. Patient denies any recent fever chills or cough. Patient's predominant complaint to me has been she's thirsty and hungry - Related Data Home Medications Medication Instructions Recorded Confirmed cloNIDine HCL 0.3 mg PO QID@06,12,18,00 02/11/16 12/06/17 Losartan Potassium [Cozaar] 100 mg PO DAILY@1200 03/26/16 12/06/17 Ergocalciferol [Vitamin D2] 50,000 unit PO Q14D 09/19/17 12/06/17 cloNIDine HCL [Catapres] 0.1 mg PO BID PRN 11/15/17 12/06/17 Carvedilol [Coreg] 12.5 mg PO BID@08,21 11/29/17 12/06/17 Hydrochlorothiazide 50 mg PO DAILY@0800 12/06/17 12/06/17 Allergies Allergy/AdvReac Type Severity Reaction Status Date / Time diphenhydramine Allergy Itching Verified 12/06/17 11:06 [From Benadryl] Iodinated Contrast- Oral and Allergy Rash/Hives Verified 12/06/17 11:06 IV Dye latex Allergy Rash/Hives Verified 12/06/17 11:06 Penicillins Allergy Rash/Hives Verified 12/06/17 11:06 propoxyphene Allergy Unknown Verified 12/06/17 11:06 Quinolones Allergy Rash/Hives Verified 12/06/17 11:06 Sulfa (Sulfonamide Allergy Rash/Hives Verified 12/06/17 11:06 Antibiotics) Review of Systems ROS Statement: Those systems with pertinent positive or pertinent negative responses have been documented in the HPI. ROS Other: All systems not noted in ROS Statement are negative. Past Medical History Past Medical History: Chest Pain / Angina, Hypertension, Respiratory Disorder, Sleep Apnea/CPAP/BIPAP Additional Past Medical History / Comment(s): head injury in the past History of Any Multi-Drug Resistant Organisms: None Reported Past Surgical History: Section, Heart Catheterization, Uterine Ablation Additional Past Surgical History / Comment(s): eye surgery, lithotripsy, OVARIAN CYST REMOVED RIGHT SIDE Past Anesthesia/Blood Transfusion Reactions: No Reported Reaction Past Psychological History: Anxiety, Bipolar, Depression, Schizophrenia Smoking Status: Current every day smoker Past Alcohol Use History: None Reported Past Drug Use History: None Reported - Past Family History Mother Family Medical History: Cancer Father Family Medical History: Unable to Obtain General Exam - General Exam Comments Initial Comments: GENERAL: Patient is well-developed and well-nourished. Patient is nontoxic and well- hydrated and is in no acute distress. ENT: Neck is soft and supple. No significant lymphadenopathy is noted. Oropharynx is clear. Moist mucous membranes. Neck has full range of motion without eliciting any pain. EYES: The sclera were anicteric and conjunctiva were pink and moist. Extraocular movements were intact and pupils were equal round and reactive to light. Eyelids were unremarkable. PULMONARY: Unlabored respirations. Good breath sounds bilaterally. No audible rales rhonchi or wheezing was noted. CARDIOVASCULAR: There is a regular rate and rhythm without any murmurs gallops or rubs. ABDOMEN: Soft and nontender with normal bowel sounds. No palpable organomegaly was noted. There is no palpable pulsatile mass. SKIN: Skin is clear with no lesions or rashes and otherwise unremarkable. NEUROLOGIC: Patient is alert and oriented 2 Cranial nerves II through XII are grossly intact. Motor and sensory are also intact. Normal speech, volume and content. Symmetrical smile. MUSCULOSKELETAL: Normal extremities with adequate strength and full range of motion. No lower extremity swelling or edema. No calf tenderness. LYMPHATICS: No significant lymphadenopathy is noted Limitations: no limitations Course Vital Signs 12/06/17 12/06/17 10:43 11:28 Temperature 98.7 F Pulse Rate 73 Respiratory 16 18 Rate Blood Pressure 160/79 O2 Sat by Pulse 98 Oximetry Medical Decision Making - Medical Decision Making Patient states she has to take Catapres at noon that is why her blood pressures mildly elevated. Patient oxygenates 98-99% whether she is walking or sitting in bed both without oxygen Disposition Clinical Impression: Dyspnea Disposition: HOME SELF-CARE Instructions: Dyspnea (ED) Referrals: Perri Mcqueen MD [Primary Care Provider] - 1-2 days Time of Disposition: 11:31
== END 2017-12-06 11:40 | disposition home or self-care (01) ==
LOC: EC 10:34
DX: R06.00 Dyspnea, unspecified (principal); I10 Essential (primary) hypertension; G47.30 Sleep apnea, unspecified; Z99.89 Dependence on other enabling machines and devices; F17.200 Nicotine dependence, unspecified, uncomplicated; Z95.5 Presence of coronary angioplasty implant and graft; Z79.02 Long term (current) use of antithrombotics/antiplatelets; Z79.899 Other long term (current) drug therapy; Z88.8 Allergy status to other drugs, medicaments and biological substances; Z91.041 Radiographic dye allergy status; Z91.040 Latex allergy status; Z88.0 Allergy status to penicillin; Z88.1 Allergy status to other antibiotic agents; Z88.2 Allergy status to sulfonamides
CPT/HCPCS: 99285

== ENCOUNTER 2017-12-10 10:18 | Emergency (ER) | payer MEDICARE, OTHER ==
[2017-12-10] MEDS ORDERED: LOSARTAN 50 MG TAB PO STA (12:18)
[2017-12-10] MEDS ORDERED: cloNIDine HCL 0.1 MG TAB PO STA (12:18)
--- NOTE | 2017-12-10 12:22 | ED ---
General Adult HPI - General Chief complaint: Urogenital Stated complaint: Hypertensive, female gu Time Seen by Provider: 12/10/17 12:08 Source: patient, RN notes reviewed Mode of arrival: ambulatory Limitations: no limitations - History of Present Illness Initial comments: 52-year-old female presents to the emergency department with a chief complaint that her cervix may be falling out. She states she was going to the bathroom last night she felt a bulge in the vaginal area and she had to push her cervix back in. She states she has not felt this both symptoms. She states that she has had 5 children and she does not have an [facility] [facility]. She denies any vaginal discharge she denies any vaginal bleeding. She denies any pain with it. She states was just concerned due to the protrusion so she thought that she should be seen. Patient denies any recent fever, chills, shortness of breath, chest pain, back pain, abdominal pain, nausea vomiting, numbness or tingling, dysuria or hematuria, constipation or diarrhea, headaches or visual changes, or any other current symptoms. - Related Data Home Medications Medication Instructions Recorded Confirmed cloNIDine HCL 0.3 mg PO QID@06,,18,00 02/11/16 12/10/17 Losartan Potassium [Cozaar] 100 mg PO DAILY@1200 03/26/16 12/10/17 Ergocalciferol [Vitamin D2] 50,000 unit PO Q14D 09/19/17 12/10/17 cloNIDine HCL [Catapres] 0.1 mg PO BID PRN 11/15/17 12/10/17 Carvedilol [Coreg] 12.5 mg PO BID@08,21 11/29/17 12/10/17 Hydrochlorothiazide 50 mg PO DAILY@0800 12/06/17 12/10/17 Allergies Allergy/AdvReac Type Severity Reaction Status Date / Time diphenhydramine Allergy Itching Verified 12/10/17 11:49 [From Benadryl] Iodinated Contrast- Oral and Allergy Rash/Hives Verified 12/10/17 11:49 IV Dye latex Allergy Rash/Hives Verified 12/10/17 11:49 Penicillins Allergy Rash/Hives Verified 12/10/17 11:49 propoxyphene Allergy Unknown Verified 12/10/17 11:49 Quinolones Allergy Rash/Hives Verified 12/10/17 11:49 Sulfa (Sulfonamide Allergy Rash/Hives Verified 12/10/17 11:49 Antibiotics) Review of Systems ROS Statement: Those systems with pertinent positive or pertinent negative responses have been documented in the HPI. ROS Other: All systems not noted in ROS Statement are negative. Past Medical History Past Medical History: Chest Pain / Angina, Hypertension, Respiratory Disorder, Sleep Apnea/CPAP/BIPAP Additional Past Medical History / Comment(s): head injury in the past History of Any Multi-Drug Resistant Organisms: None Reported Past Surgical History: Section, Heart Catheterization, Uterine Ablation Additional Past Surgical History / Comment(s): eye surgery, lithotripsy, OVARIAN CYST REMOVED RIGHT SIDE Past Anesthesia/Blood Transfusion Reactions: No Reported Reaction Past Psychological History: Anxiety, Bipolar, Depression, Schizophrenia Smoking Status: Current every day smoker Past Alcohol Use History: None Reported Past Drug Use History: None Reported - Past Family History Mother Family Medical History: Cancer Father Family Medical History: Unable to Obtain General Exam Limitations: no limitations General appearance: alert, in no apparent distress ENT exam: Present: normal exam, mucous membranes moist Neck exam: Present: normal inspection. Absent: tenderness, meningismus, lymphadenopathy Respiratory exam: Present: normal lung sounds bilaterally. Absent: respiratory distress, wheezes, rales, rhonchi, stridor Cardiovascular Exam: Present: regular rate, normal rhythm, normal heart sounds. Absent: systolic murmur, diastolic murmur, rubs, gallop, clicks GI/Abdominal exam: Present: soft, normal bowel sounds. Absent: distended, tenderness, guarding, rebound, rigid External exam: Present: normal external exam Speculum exam: Present: normal speculum exam By manual exam: Present: normal by manual exam Extremities exam: Present: normal inspection, full ROM, normal capillary refill. Absent: tenderness, pedal edema, joint swelling, calf tenderness Skin exam: Present: warm, dry, intact, normal color. Absent: rash Course Vital Signs 12/10/17 10:47 Temperature 98.1 F Pulse Rate 72 Respiratory 18 Rate Blood Pressure 120/69 O2 Sat by Pulse 98 Oximetry Medical Decision Making - Medical Decision Making 52-year-old female presents we did suspicion for possible uterine prolapse and the importance of following up with [facility]. 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 We discuss return parameters and all questions. The patient is requesting her noon Meds we will give these prior to discharge. Patient is in agreement this plan. All questions have been answered. She'll be discharged. Disposition Clinical Impression: Uterine prolapse Disposition: HOME SELF-CARE Condition: Stable Instructions: Uterine Prolapse (ED) Additional Instructions: Please use medication as discussed. Please follow up with family doctor if symptoms have not improved over the next two days. Please return to the emergency room if your symptoms increase or worsen or for any other concerns. Referrals: Perri Mcqueen MD [Primary Care Provider] - 1-2 days Treva Barrios MD [STAFF PHYSICIAN] - 1-2 days Time of Disposition: 12:21
[2017-12-10 12:33] VITALS: BP 141/94; PULSE 69; RESP 17; TEMP 98.4
== END 2017-12-10 12:57 | disposition home or self-care (01) ==
LOC: EC 10:18
DX: N81.4 Uterovaginal prolapse, unspecified (principal); I10 Essential (primary) hypertension; G47.30 Sleep apnea, unspecified; F41.9 Anxiety disorder, unspecified; F17.200 Nicotine dependence, unspecified, uncomplicated; Z99.89 Dependence on other enabling machines and devices; Z79.899 Other long term (current) drug therapy; Z88.0 Allergy status to penicillin; Z88.1 Allergy status to other antibiotic agents; Z88.2 Allergy status to sulfonamides; Z88.5 Allergy status to narcotic agent; Z88.8 Allergy status to other drugs, medicaments and biological substances; Z91.041 Radiographic dye allergy status
CPT/HCPCS: 99283

== ENCOUNTER 2017-12-14 11:15 | Emergency (ER) | payer MEDICARE, OTHER ==
[2017-12-14 11:36] VITALS: BP 156/88; PULSE 71; RESP 18; TEMP 98.1
== END 2017-12-14 12:30 | disposition left against medical advice (07) ==
LOC: EC 11:15
CPT/HCPCS: 99499

== ENCOUNTER 2017-12-26 12:57 | Emergency (ER) | payer MEDICARE, OTHER ==
[2017-12-26 15:07] LABS: Basophils # (A) 0.1 k/uL (0-0.2); Basophils % (A) 1 %; Eosinophils # (A) 0.2 k/uL (0-0.7); Eosinophils % (A) 2 %; HCT 46.9 % (34.0-46.0); HGB 15.8 gm/dL (11.4-16.0); Lymphocytes # (A) 3.5 k/uL (1.0-4.8); Lymphocytes % (A) 36 %; MCH 31.8 pg (25.0-35.0); MCHC 33.6 g/dL (31.0-37.0); MCV 94.5 fL (80.0-100.0); Mean Platelet Volume 8.6; Monocytes # (A) 0.4 k/uL (0-1.0); Monocytes % (A) 4 %; Neutrophils # (A) 5.6 k/uL (1.3-7.7); Neutrophils % (A) 57 %; Platelet Count 263 k/uL (150-450); RBC 4.96 m/uL (3.80-5.40); RDW 12.2 % (11.5-15.5); WBC 9.9 k/uL (3.8-10.6)
[2017-12-26 15:16] LABS: ALT 25 U/L (9-52); AST 23 U/L (14-36); Albumin 4.2 g/dL (3.5-5.0); Alkaline Phosphatase 68 U/L (38-126); Anion Gap 11 mmol/L; Blood Urea Nitrogen 14 mg/dL (7-17); Carbon Dioxide 26 mmol/L (22-30); Chloride 95 mmol/L (98-107); Glucose 170 mg/dL (74-99); Potassium 3.7 mmol/L (3.5-5.1); Sodium 132 mmol/L (137-145); Total Bilirubin 0.5 mg/dL (0.2-1.3)
--- NOTE | 2017-12-26 15:21 | ED ---
Syncope HPI - General Chief Complaint: Syncope Stated Complaint: Syncope-revisit Time Seen by Provider: 12/26/17 14:46 Source: patient Mode of arrival: ambulatory Limitations: no limitations - History of Present Illness Initial Comments: 52 yoF presenting from a alf after an episode of syncope. Patient states she felt light headed and dizzy when she had a syncopal episode from standing. She states she hit the back of her head. She says it was witnessed. She currently denies any symptoms. Denies chest pain, shortness of breath, or anticoagulant usage. Denies any other symptoms preceding the event. EKG shows NSR at a rate of 78 bpm. No arrhythmia, ST elevation, or ST depression noted. Similar to EKG from 11/15/17. Patient's laboratory workup was unremarkable. Her CXR showed no acute process. she was asymptomatic in the ED. [place] syncope rule applied and the patient is low risk. No further emergent workup indicated. The patient was given return to ED instructions. They were instructed to follow up with their primary care provider. Stable for discharge at this time. - Related Data Home Medications Medication Instructions Recorded Confirmed cloNIDine HCL 0.3 mg PO QID@06,12,18,00 02/11/16 12/26/17 Losartan Potassium [Cozaar] 100 mg PO DAILY@1200 03/26/16 12/26/17 Ergocalciferol [Vitamin D2] 50,000 unit PO Q14D 09/19/17 12/26/17 cloNIDine HCL [Catapres] 0.1 mg PO BID PRN 11/15/17 12/26/17 Carvedilol [Coreg] 12.5 mg PO BID@08,21 11/29/17 12/26/17 Hydrochlorothiazide 50 mg PO DAILY@0800 12/06/17 12/26/17 fluPHENAZine DECANOATE [Prolixin 50 mg IM Q7D 12/14/17 12/26/17 Decanoate] Allergies Allergy/AdvReac Type Severity Reaction Status Date / Time diphenhydramine Allergy Itching Verified 12/26/17 14:52 [From Benadryl] Iodinated Contrast- Oral and Allergy Rash/Hives Verified 12/26/17 14:52 IV Dye latex Allergy Rash/Hives Verified 12/26/17 14:52 Penicillins Allergy Rash/Hives Verified 12/26/17 14:52 propoxyphene Allergy Unknown Verified 12/26/17 14:52 Quinolones Allergy Rash/Hives Verified 12/26/17 14:52 Sulfa (Sulfonamide Allergy Rash/Hives Verified 12/26/17 14:52 Antibiotics) Review of Systems ROS Statement: Those systems with pertinent positive or pertinent negative responses have been documented in the HPI. Review of Systems Constitutional: Denies fever, chills Eyes: Denies change in vision, Denies pain Ears, nose, mouth, throat: Denies headaches, Denies sore throat Cardiovascular: Denies chest pain. Denies palpitations Respiratory: Denies shortness of breath, Denies cough Gastrointestinal: Denies abdominal pain. Denies nausea, vomiting, diarrhea. Genitourinary: Denies hematuria, Denies infections Musculoskeletal: Denies pain, Denies swelling Integumentary: Denies rash Neurological: Denies headache, focal weakness, focal numbness. Positive syncope Psychiatric: Denies anxiety, Denies depression Hematologic/Lymphatic: Denies easy bleeding or bruising ROS Other: All systems not noted in ROS Statement are negative. Past Medical History Past Medical History: Chest Pain / Angina, Hypertension, Respiratory Disorder, Sleep Apnea/CPAP/BIPAP Additional Past Medical History / Comment(s): head injury in the past, cyst on right kidney History of Any Multi-Drug Resistant Organisms: None Reported Past Surgical History: Section, Heart Catheterization, Uterine Ablation Additional Past Surgical History / Comment(s): eye surgery, lithotripsy, OVARIAN CYST REMOVED RIGHT SIDE Past Anesthesia/Blood Transfusion Reactions: No Reported Reaction Past Psychological History: Anxiety, Bipolar, Depression, Schizophrenia Smoking Status: Current every day smoker Past Alcohol Use History: None Reported Past Drug Use History: None Reported - Past Family History Mother Family Medical History: Cancer Father Family Medical History: Unable to Obtain General Exam - General Exam Comments Initial Comments: General: Awake, alert, No acute Distress HENT: Normocephalic. Atraumatic Eyes: PERRL. EOMI. No scleral icterus. No injected conjunctiva Neck: Full ROM Chest/Lungs: Clear to auscultation bilaterally. No wheezing, rhonchi, or rales Cardiac: Regular rate, rhythm. No murmurs or rubs Abdomen/GI: [Soft, nontender, nondistended. No rebound, guarding, or rigidity. Musculoskeletal: Full ROM Skin: Warm, dry, intact Neurologic: A/Ox3, no weakness, no sensory deficit, no abdnormal gait, no coordination deficit Psychiatric: Flat affect. Limitations: no limitations Course Vital Signs 12/26/17 12/26/17 13:54 16:34 Temperature 98.4 F 98 F Pulse Rate 80 78 Respiratory 20 16 Rate Blood Pressure 137/88 130/86 O2 Sat by Pulse 96 96 Oximetry Medical Decision Making - Medical Decision Making 52 yoF presenting after syncopal episode. On initial exam she is awake, alert, and in NAD. VSS. - Lab Data Result diagrams: 12/26/17 14:54 12/26/17 14:54 Lab Results 12/26/17 12/26/17 12/26/17 Range/Units 14:54 14:54 14:54 WBC 9.9 (3.8-10.6) k/uL RBC 4.96 (3.80-5.40) m/uL Hgb 15.8 (11.4-16.0) gm/dL Hct 46.9 H (34.0-46.0) % MCV 94.5 (80.0-100.0) fL MCH 31.8 (25.0-35.0) pg MCHC 33.6 (31.0-37.0) g/dL RDW 12.2 (11.5-15.5) % Plt Count 263 (150-450) k/uL Neutrophils % 57 % Lymphocytes % 36 % Monocytes % 4 % Eosinophils % 2 % Basophils % 1 % Neutrophils # 5.6 (1.3-7.7) k/uL Lymphocytes # 3.5 (1.0-4.8) k/uL Monocytes # 0.4 (0-1.0) k/uL Eosinophils # 0.2 (0-0.7) k/uL Basophils # 0.1 (0-0.2) k/uL PT (9.0-12.0) sec INR (<1.2) APTT (22.0-30.0) sec Sodium 132 L (137-145) mmol/L Potassium 3.7 (3.5-5.1) mmol/L Chloride 95 L (98-107) mmol/L Carbon Dioxide 26 (22-30) mmol/L Anion Gap 11 mmol/L BUN 14 (7-17) mg/dL Creatinine 0.73 (0.52-1.04) mg/dL Est GFR (CKD-EPI)AfAm >90 (>60 ml/min/1.73 sqM) Est GFR (CKD-EPI)NonAf >90 (>60 ml/min/1.73 sqM) Glucose 170 H (74-99) mg/dL Calcium 10.0 (8.4-10.2) mg/dL Total Bilirubin 0.5 (0.2-1.3) mg/dL AST 23 (14-36) U/L ALT 25 (9-52) U/L Alkaline Phosphatase 68 (38-126) U/L Total Creatine Kinase (30-135) U/L CK-MB (CK-2) (0.0-2.4) ng/mL CK-MB (CK-2) Rel Index Troponin I (0.000-0.034) ng/mL NT-Pro-B Natriuret Pep 184 pg/mL Total Protein 7.0 (6.3-8.2) g/dL Albumin 4.2 (3.5-5.0) g/dL Urine Color Urine Appearance (Clear) Urine pH (5.0-8.0) Ur Specific [place] (1.001-1.035) Urine Protein (Negative) Urine Glucose (UA) (Negative) Urine Ketones (Negative) Urine Blood (Negative) Urine Nitrite (Negative) Urine Bilirubin (Negative) Urine Urobilinogen (<2.0) mg/dL Ur Leukocyte Esterase (Negative) Urine RBC (0-5) /hpf Urine WBC (0-5) /hpf Ur Squamous Epith Cells (0-4) /hpf Amorphous Sediment (None) /hpf Urine Bacteria (None) /hpf 12/26/17 12/26/17 12/26/17 Range/Units 15:48 15:48 17:06 WBC (3.8-10.6) k/uL RBC (3.80-5.40) m/uL Hgb (11.4-16.0) gm/dL Hct (34.0-46.0) % MCV (80.0-100.0) fL MCH (25.0-35.0) pg MCHC (31.0-37.0) g/dL RDW (11.5-15.5) % Plt Count (150-450) k/uL Neutrophils % % Lymphocytes % % Monocytes % % Eosinophils % % Basophils % % Neutrophils # (1.3-7.7) k/uL Lymphocytes # (1.0-4.8) k/uL Monocytes # (0-1.0) k/uL Eosinophils # (0-0.7) k/uL Basophils # (0-0.2) k/uL PT 10.4 (9.0-12.0) sec INR 1.1 (<1.2) APTT 23.7 (22.0-30.0) sec Sodium (137-145) mmol/L Potassium (3.5-5.1) mmol/L Chloride (98-107) mmol/L Carbon Dioxide (22-30) mmol/L Anion Gap mmol/L BUN (7-17) mg/dL Creatinine (0.52-1.04) mg/dL Est GFR (CKD-EPI)AfAm (>60 ml/min/1.73 sqM) Est GFR (CKD-EPI)NonAf (>60 ml/min/1.73 sqM) Glucose (74-99) mg/dL Calcium (8.4-10.2) mg/dL Total Bilirubin (0.2-1.3) mg/dL AST (14-36) U/L ALT (9-52) U/L Alkaline Phosphatase (38-126) U/L Total Creatine Kinase 98 (30-135) U/L CK-MB (CK-2) 2.0 (0.0-2.4) ng/mL CK-MB (CK-2) Rel Index 2.0 Troponin I <0.012 (0.000-0.034) ng/mL NT-Pro-B Natriuret Pep pg/mL Total Protein (6.3-8.2) g/dL Albumin (3.5-5.0) g/dL Urine Color Colorless Urine Appearance Clear (Clear) Urine pH 5.0 (5.0-8.0) Ur Specific [place] 1.004 (1.001-1.035) Urine Protein Negative (Negative) Urine Glucose (UA) Negative (Negative) Urine Ketones Negative (Negative) Urine Blood Trace H (Negative) Urine Nitrite Negative (Negative) Urine Bilirubin Negative (Negative) Urine Urobilinogen <2.0 (<2.0) mg/dL Ur Leukocyte Esterase Negative (Negative) Urine RBC <1 (0-5) /hpf Urine WBC 1 (0-5) /hpf Ur Squamous Epith Cells 2 (0-4) /hpf Amorphous Sediment Rare H (None) /hpf Urine Bacteria Rare H (None) /hpf Disposition Clinical Impression: Syncope Disposition: HOME SELF-CARE Condition: Good Instructions: Syncope (ED) Referrals: Perri Mcqueen MD [Primary Care Provider] - 1-2 days
--- NOTE | 2017-12-26 16:03 | XR ---
EXAMINATION TYPE: XR chest 2V DATE OF EXAM: 12/26/2017 COMPARISON: 10/07/2017 HISTORY: Shortness of breath TECHNIQUE: Frontal and lateral views of the chest are obtained. FINDINGS: Scattered senescent parenchymal changes noted. Hyperinflation compatible with COPD. No evidence for infiltrate. No evidence for atelectasis. Heart size is stable. Mediastinal structures are stable and grossly unremarkable. No evidence for hilar prominence. Degenerative changes dorsal spine. IMPRESSION: 1. No evidence for acute pulmonary disease.
[2017-12-26 16:10] LABS: INR 1.1 (<1.2); Partial Thromboplastin Time 23.7 sec (22.0-30.0); Prothrombin Time 10.4 sec (9.0-12.0)
[2017-12-26 16:17] LABS: Creatine Kinase 98 U/L (30-135)
[2017-12-26 16:29] LABS: Troponin I <0.012 ng/mL (0.000-0.034)
[2017-12-26 16:35] VITALS: BP 130/86; PULSE 78; RESP 16; TEMP 98
[2017-12-26 17:15] LABS: Amorphous Sediment,Urine Rare /hpf; Appearance,Urine Clear (Clear); Bacteria,Urine Rare /hpf; Bilirubin,Urine Negative (Negative); Blood,Urine Trace (Negative); Color,Urine Colorless; Glucose,Urine (UA) Negative (Negative); Ketones,Urine Negative (Negative); Leukocyte Esterase,Urine Negative (Negative); Nitrite,Urine Negative (Negative); Protein,Urine Negative (Negative); RBC,Urine <1 /hpf (0-5); Specific Gravity,Urine 1.004 (1.001-1.035); Squamous Epithelial Cell,Urine 2 /hpf (0-4); Urobilinogen,Urine <2.0 mg/dL (<2.0); WBC,Urine 1 /hpf (0-5)
== END 2017-12-26 17:31 | disposition home or self-care (01) ==
LOC: EC 12:57
DX: R55 Syncope and collapse (principal); I10 Essential (primary) hypertension; G47.30 Sleep apnea, unspecified; F20.9 Schizophrenia, unspecified; F17.200 Nicotine dependence, unspecified, uncomplicated; Z99.89 Dependence on other enabling machines and devices; Z79.899 Other long term (current) drug therapy; Z88.0 Allergy status to penicillin; Z88.1 Allergy status to other antibiotic agents; Z88.2 Allergy status to sulfonamides; Z88.5 Allergy status to narcotic agent; Z88.8 Allergy status to other drugs, medicaments and biological substances; Z91.040 Latex allergy status; Z91.041 Radiographic dye allergy status
CPT/HCPCS: 36415; 71046; 80053; 81001; 82550; 82553; 83880; 84484; 85025; 85610; 85730; 99284

== ENCOUNTER 2017-12-30 14:06 | Emergency (ER) | payer MEDICARE, OTHER ==
[2017-12-30 14:16] VITALS: BP 170/79; PULSE 85; RESP 20; TEMP 98
[2017-12-30] MEDS ORDERED: IBUPROFEN 600 MG TAB PO STA (14:28)
--- NOTE | 2017-12-30 14:35 | ED ---
Lower Extremity Injury HPI - General Chief Complaint: Extremity Injury, Lower Stated Complaint: Ankle injury Time Seen by Provider: 12/30/17 14:18 Source: patient Mode of arrival: ambulatory Limitations: no limitations - History of Present Illness Initial Comments: 52-year-old female patient presents to the emergency department today with complaints of right ankle pain. Patient reports that this morning she was coming down the stairs when she twisted her ankle and fell down approximately 3 steps. States that she did strike her face on the wall. She states she did have some bleeding from both nostrils for about 5 minutes. She denies any current pain to the nose. She denies any loss of consciousness. She states her main concern is her right ankle. States that she is having difficulty ambulating due to the pain. She denies any numbness or tingling in the foot. She denies any previous injury to the ankle. Patient denies any headache, neck pain, back pain, chest pain, shortness of breath, dizziness, weakness, abdominal pain, nausea, vomiting, or difficulties with bowel movements or urination. - Related Data Home Medications Medication Instructions Recorded Confirmed cloNIDine HCL 0.3 mg PO QID@06,12,18,00 02/11/16 12/26/17 Losartan Potassium [Cozaar] 100 mg PO DAILY@1200 03/26/16 12/26/17 Ergocalciferol [Vitamin D2] 50,000 unit PO Q14D 09/19/17 12/26/17 cloNIDine HCL [Catapres] 0.1 mg PO BID PRN 11/15/17 12/26/17 Carvedilol [Coreg] 12.5 mg PO BID@08,21 11/29/17 12/26/17 Hydrochlorothiazide 50 mg PO DAILY@0800 12/06/17 12/26/17 fluPHENAZine DECANOATE [Prolixin 50 mg IM Q7D 12/14/17 12/26/17 Decanoate] Previous Rx's Medication Instructions Recorded Ibuprofen [Motrin] 600 mg PO Q8HR PRN #30 tab 12/30/17 Allergies Allergy/AdvReac Type Severity Reaction Status Date / Time diphenhydramine Allergy Itching Verified 12/30/17 14:15 [From Benadryl] Iodinated Contrast- Oral and Allergy Rash/Hives Verified 12/30/17 14:15 IV Dye latex Allergy Rash/Hives Verified 12/30/17 14:15 Penicillins Allergy Rash/Hives Verified 12/30/17 14:15 propoxyphene Allergy Unknown Verified 12/30/17 14:15 Quinolones Allergy Rash/Hives Verified 12/30/17 14:15 Sulfa (Sulfonamide Allergy Rash/Hives Verified 12/30/17 14:15 Antibiotics) Review of Systems ROS Statement: Those systems with pertinent positive or pertinent negative responses have been documented in the HPI. ROS Other: All systems not noted in ROS Statement are negative. Past Medical History Past Medical History: Chest Pain / Angina, Hypertension, Respiratory Disorder, Sleep Apnea/CPAP/BIPAP Additional Past Medical History / Comment(s): head injury in the past, cyst on right kidney History of Any Multi-Drug Resistant Organisms: None Reported Past Surgical History: Section, Heart Catheterization, Uterine Ablation Additional Past Surgical History / Comment(s): eye surgery, lithotripsy, OVARIAN CYST REMOVED RIGHT SIDE Past Anesthesia/Blood Transfusion Reactions: No Reported Reaction Past Psychological History: Anxiety, Bipolar, Depression, Schizophrenia Smoking Status: Current every day smoker Past Alcohol Use History: None Reported Past Drug Use History: None Reported - Past Family History Mother Family Medical History: Cancer Father Family Medical History: Unable to Obtain General Exam Limitations: no limitations General appearance: alert, in no apparent distress, other (This is a well- developed, well-nourished adult female patient in no acute distress. Vital signs upon presentation are temperature 98.0F, pulse 85, respirations 20, blood pressure 170/79, pulse ox 98% on room air.) Eye exam: Present: normal appearance, PERRL, EOMI. Absent: scleral icterus, conjunctival injection, periorbital swelling ENT exam: Present: normal exam, mucous membranes moist, other (Bilateral nares are patent. No evidence of dried blood at this time. There is some mild nasal bridge tenderness but no step-off or deformity noted. No evidence of septal hematoma.) Neck exam: Present: normal inspection, full ROM, other (Nontender, no step-off, no deformity to firm midline palpation of the posterior cervical spine. Full range of motion without pain or limitation.). Absent: tenderness, meningismus, lymphadenopathy Respiratory exam: Present: normal lung sounds bilaterally. Absent: respiratory distress, wheezes, rales, rhonchi, stridor Cardiovascular Exam: Present: regular rate, normal rhythm, normal heart sounds. Absent: systolic murmur, diastolic murmur, rubs, gallop, clicks Extremities exam: Present: full ROM, tenderness (Surrounding the right lateral malleolus), normal capillary refill, other (There is mild soft tissue swelling noted surrounding the right lateral malleolus. Skin is otherwise pink, warm, and dry. Cap refills less than 3 seconds. Pedal and posttibial pulses are 2+ and equal bilaterally.). Absent: normal inspection, pedal edema, joint swelling , calf tenderness Neurological exam: Present: alert, oriented X3, CN II-XII intact Psychiatric exam: Present: normal affect, normal mood Skin exam: Present: warm, dry, intact, normal color. Absent: rash Course Vital Signs 12/30/17 14:13 Temperature 98.0 F Pulse Rate 85 Respiratory 20 Rate Blood Pressure 170/79 O2 Sat by Pulse 98 Oximetry Procedures - Orthopedic Splinting/Casting Injury #1 Side: right Upper Extremity Immobilizer: sugar tong splint Lower Extremity Injury Location: short leg Lower Extremity Immobilizer: stirrup splint Medical Decision Making - Medical Decision Making 52-year-old female was admitted to the emergency department today complaining of right ankle pain after tripping and falling down the stairs this morning. Physical examination does reveal tenderness throughout in the right lateral malleolus. Neurovascular status is intact. Distal pulses are intact. X-ray did show a nondisplaced fibular shaft fracture on the right side. I did discuss findings with the patient. Did place her in a sugar tong splint. She is instructed to follow-up with orthopedics for reevaluation as soon as possible. She is given a prescription for ibuprofen and crutches. She is instructed to return here immediately for any new, worsening, or concerning symptoms. She verbalizes understanding and agrees with this plan. - Radiology Data Radiology results: report reviewed, image reviewed 3 views of the right ankle are obtained, AP view shows a nondisplaced linear lucency involving the lateral cortex of the distal fibular shaft, located approximately 7.5 cm cephalad to the tibial plafond. No other fracture or malalignment. The soft tissues show lateral soft tissue swelling. Impression by Dr. Ayan Youssef shows nondisplaced distal fibular shaft fracture. Disposition Clinical Impression: Right fibular fracture Disposition: HOME SELF-CARE Condition: Good Instructions: Leg Fracture (ED) Additional Instructions: Rest, ice, elevate the right leg. Follow-up with orthopedics for recheck as soon as possible. Return here immediately for any new, worsening, or concerning symptoms. Prescriptions: Ibuprofen [Motrin] 600 mg PO Q8HR PRN #30 tab PRN Reason: Pain Referrals: Perri Mcqueen MD [Primary Care Provider] - 1-2 days Geen Mcginnis MD [Medical Doctor] - 1-2 days Time of Disposition: 15:14
--- NOTE | 2017-12-30 14:57 | XR ---
PROCEDURE: XR ankle complete RT, 3 views DATE AND TIME: 12/30/2017 2:45 PM REFERRING PHYSICIAN: Cheryl France CLINICAL INDICATION: PHH, Pain TECHNIQUE: Department protocol. COMPARISON: None FINDINGS: The AP view shows a nondisplaced linear lucency involving the lateral cortex of the distal fibular shaft, located approximately 7.5 cm cephalad to the tibial plafond. No other fracture or malalignment. The soft tissues show lateral soft tissue swelling. IMPRESSION: NONDISPLACED DISTAL FIBULAR SHAFT FRACTURE.
== END 2017-12-30 15:43 | disposition home or self-care (01) ==
LOC: EC 14:06
DX: S82.831A Other fracture of upper and lower end of right fibula, initial encounter for closed fracture (principal); I10 Essential (primary) hypertension; F32.9 Major depressive disorder, single episode, unspecified; F20.9 Schizophrenia, unspecified; F17.200 Nicotine dependence, unspecified, uncomplicated; Z95.5 Presence of coronary angioplasty implant and graft; Z88.0 Allergy status to penicillin; Z88.2 Allergy status to sulfonamides; Z88.8 Allergy status to other drugs, medicaments and biological substances; Z91.040 Latex allergy status; Z91.041 Radiographic dye allergy status; Z79.02 Long term (current) use of antithrombotics/antiplatelets; Z79.899 Other long term (current) drug therapy; X50.1XXA Overexertion from prolonged static or awkward postures, initial encounter; W10.9XXA Fall (on) (from) unspecified stairs and steps, initial encounter; Y92.009 Unspecified place in unspecified non-institutional (private) residence as the place of occurrence of the external cause
CPT/HCPCS: 29515; 99283

== ENCOUNTER 2018-02-04 12:05 | Emergency (ER) | payer MEDICARE, OTHER ==
--- NOTE | 2018-02-04 12:15 | ED ---
Psych HPI - General Stated Complaint: Mental Health Time Seen by Provider: 02/04/18 12:10 Source: patient, EMS, RN notes reviewed Mode of arrival: EMS Limitations: no limitations - History of Present Illness Initial Comments: This a 52-year-old female presents emergency Department with chief complaint of depression, suicidal ideation. Patient states that she does not want to be 89 anymore. She states that she drinks several and butter knife. Patient was picked up from [facility] home. EMS reports that she's not been taking care of herself. Patient was recently treated for abscess to her back and was on IV antibiotics. Patient states it's been improving has had recent wound care sheet. Patient's states that she had chest pain or other day with the usual for her normal chest pain. Patient also states that she is due for her clonidine and which she normally takes. Patient denies any homicidal ideation or drug abuse no alcohol abuse - Related Data Home Medications Medication Instructions Recorded Confirmed cloNIDine HCL 0.3 mg PO QID@06,12,18,00 02/11/16 02/04/18 Losartan Potassium [Cozaar] 100 mg PO DAILY@1200 03/26/16 02/04/18 Ergocalciferol [Vitamin D2] 50,000 unit PO Q14D 09/19/17 02/04/18 cloNIDine HCL [Catapres] 0.1 mg PO BID PRN 11/15/17 02/04/18 Carvedilol [Coreg] 12.5 mg PO BID@08,21 11/29/17 02/04/18 Hydrochlorothiazide 50 mg PO DAILY@0800 12/06/17 02/04/18 fluPHENAZine DECANOATE [Prolixin 50 mg IM Q7D 12/14/17 02/04/18 Decanoate] Previous Rx's Medication Instructions Recorded Ibuprofen [Motrin] 600 mg PO Q8HR PRN #30 tab 12/30/17 Allergies Allergy/AdvReac Type Severity Reaction Status Date / Time diphenhydramine Allergy Itching Verified 02/04/18 12:19 [From Benadryl] Iodinated Contrast- Oral and Allergy Rash/Hives Verified 02/04/18 12:19 IV Dye latex Allergy Rash/Hives Verified 02/04/18 12:19 Penicillins Allergy Rash/Hives Verified 02/04/18 12:19 propoxyphene Allergy Unknown Verified 02/04/18 12:19 Quinolones Allergy Rash/Hives Verified 02/04/18 12:19 Sulfa (Sulfonamide Allergy Rash/Hives Verified 02/04/18 12:19 Antibiotics) Review of Systems ROS Statement: Those systems with pertinent positive or pertinent negative responses have been documented in the HPI. ROS Other: All systems not noted in ROS Statement are negative. Past Medical History Past Medical History: Chest Pain / Angina, Hypertension, Respiratory Disorder, Sleep Apnea/CPAP/BIPAP Additional Past Medical History / Comment(s): head injury in the past, cyst on right kidney History of Any Multi-Drug Resistant Organisms: None Reported Past Surgical History: Section, Heart Catheterization, Uterine Ablation Additional Past Surgical History / Comment(s): eye surgery, lithotripsy, OVARIAN CYST REMOVED RIGHT SIDE Past Anesthesia/Blood Transfusion Reactions: No Reported Reaction Past Psychological History: Anxiety, Bipolar, Depression, Schizophrenia Smoking Status: Current every day smoker Past Alcohol Use History: None Reported Past Drug Use History: None Reported - Past Family History Mother Family Medical History: Cancer Father Family Medical History: Unable to Obtain General Exam General appearance: alert, in no apparent distress Head exam: Present: atraumatic, normocephalic, normal inspection Eye exam: Present: normal appearance, PERRL, EOMI. Absent: scleral icterus, conjunctival injection, periorbital swelling ENT exam: Present: normal exam, mucous membranes moist Respiratory exam: Present: normal lung sounds bilaterally. Absent: respiratory distress, wheezes, rales, rhonchi, stridor Cardiovascular Exam: Present: regular rate, normal rhythm, normal heart sounds. Absent: systolic murmur, diastolic murmur, rubs, gallop, clicks GI/Abdominal exam: Present: soft, normal bowel sounds. Absent: distended, tenderness, guarding, rebound, rigid Neurological exam: Present: alert, oriented X3, CN II-XII intact, reflexes normal. Absent: motor sensory deficit Skin exam: Present: warm, dry, intact, normal color. Absent: rash Course Vital Signs 02/04/18 12:14 Temperature 98.0 F Pulse Rate 75 Respiratory 18 Rate Blood Pressure 157/90 O2 Sat by Pulse 95 Oximetry Medical Decision Making - Medical Decision Making 52-year-old male present emergency department for psychiatric evaluation. Patient was evaluated by EPS case discussed with on-call psychiatry and [facility] home. Patient is safe for discharge she will be care of [facility] home at this time. - Lab Data Lab Results 02/04/18 Range/Units 12:16 Urine Opiates Screen Not Detected (NotDetected) Ur Oxycodone Screen Not Detected (NotDetected) Urine Methadone Screen Not Detected (NotDetected) Ur Propoxyphene Screen Not Detected (NotDetected) Ur Barbiturates Screen Not Detected (NotDetected) U Tricyclic Antidepress Not Detected (NotDetected) Ur Phencyclidine Scrn Not Detected (NotDetected) Ur Amphetamines Screen Not Detected (NotDetected) U Methamphetamines Scrn Not Detected (NotDetected) U Benzodiazepines Scrn Not Detected (NotDetected) Urine Cocaine Screen Not Detected (NotDetected) U Marijuana (THC) Screen Not Detected (NotDetected) 02/04/18 14:01 EKG performed at 12:44 normal sinus rhythm with a rate of 72 UT 178 QRS 82 QT/ QTC 4:30/470 Disposition Clinical Impression: Depression Disposition: HOME SELF-CARE Condition: Stable Instructions: Depression (ED) Additional Instructions: Please return to the Emergency Department if symptoms worsen or any other concerns. Is patient prescribed a controlled substance at d/c from ED?: No Referrals: Perri Mcqueen MD [Primary Care Provider] - 1-2 days Time of Disposition: 14:02
[2018-02-04 12:20] VITALS: RESP 18; TEMP 98
[2018-02-04 12:43] LABS: Amphetamine Screen,Urine Not Detected (NotDetected); Barbiturate Screen,Urine Not Detected (NotDetected); Benzodiazepines Screen,Urine Not Detected (NotDetected); Cocaine Screen,Urine Not Detected (NotDetected); Methadone Screen, Urine Not Detected (NotDetected); Opiate Screen,Urine Not Detected (NotDetected); Oxycodone Screen, Urine Not Detected (NotDetected); Phencyclidine Screen,Urine Not Detected (NotDetected); Tricyclic Antidepressant,Urine Not Detected (NotDetected); Urn Cannabinoid Scrn Not Detected (NotDetected)
[2018-02-04 14:34] VITALS: BP 150/82; PULSE 71
== END 2018-02-04 14:33 | disposition home or self-care (01) ==
LOC: EC 12:05
DX: F32.9 Major depressive disorder, single episode, unspecified (principal); R07.9 Chest pain, unspecified; I10 Essential (primary) hypertension; F20.9 Schizophrenia, unspecified; F17.200 Nicotine dependence, unspecified, uncomplicated; G47.30 Sleep apnea, unspecified; Z99.89 Dependence on other enabling machines and devices; Z95.818 Presence of other cardiac implants and grafts; Z79.02 Long term (current) use of antithrombotics/antiplatelets; Z79.899 Other long term (current) drug therapy; Z88.8 Allergy status to other drugs, medicaments and biological substances; Z91.040 Latex allergy status; Z91.041 Radiographic dye allergy status; Z88.0 Allergy status to penicillin; Z88.5 Allergy status to narcotic agent; Z88.1 Allergy status to other antibiotic agents; Z88.2 Allergy status to sulfonamides
CPT/HCPCS: 80306; 82075; 93005; 99285

== ENCOUNTER 2018-02-07 14:06 | Emergency (ER) | payer MEDICARE, OTHER ==
[2018-02-07 14:20] VITALS: RESP 20
--- NOTE | 2018-02-07 14:32 | ED ---
General Adult HPI - General Chief complaint: Syncope Stated complaint: DIZZINESS, CHEST PAIN, MARINA Time Seen by Provider: 02/07/18 14:15 Source: patient, EMS, RN notes reviewed, old records reviewed Mode of arrival: EMS Limitations: no limitations - History of Present Illness Initial comments: This is a 52-year-old female well-known to this facility for evaluation. Patient coming in by EMS for evaluation of syncopal event. Patient was at court house today for [facility] evaluation, she did have a syncopal event and brought to the emergency room for evaluation. Patient has significant history of multiple syncopal events, with no significant cause found. Patient at this time is denying any complaints no headache chest pain shortness of breath or abdominal pain. Patient denies any drug or alcohol - Related Data Home Medications Medication Instructions Recorded Confirmed cloNIDine HCL 0.3 mg PO QID@06,,18,00 02/11/16 02/04/18 Losartan Potassium [Cozaar] 100 mg PO DAILY@1200 03/26/16 02/04/18 Ergocalciferol [Vitamin D2] 50,000 unit PO Q14D 09/19/17 02/04/18 cloNIDine HCL [Catapres] 0.1 mg PO BID PRN 11/15/17 02/04/18 Carvedilol [Coreg] 12.5 mg PO BID@08,21 11/29/17 02/04/18 Hydrochlorothiazide 50 mg PO DAILY@0800 12/06/17 02/04/18 fluPHENAZine DECANOATE [Prolixin 50 mg IM Q7D 12/14/17 02/04/18 Decanoate] Previous Rx's Medication Instructions Recorded Ibuprofen [Motrin] 600 mg PO Q8HR PRN #30 tab 12/30/17 Allergies Allergy/AdvReac Type Severity Reaction Status Date / Time diphenhydramine Allergy Itching Verified 02/04/18 12:19 [From Benadryl] Iodinated Contrast- Oral and Allergy Rash/Hives Verified 02/04/18 12:19 IV Dye latex Allergy Rash/Hives Verified 02/04/18 12:19 Penicillins Allergy Rash/Hives Verified 02/04/18 12:19 propoxyphene Allergy Unknown Verified 02/04/18 12:19 Quinolones Allergy Rash/Hives Verified 02/04/18 12:19 Sulfa (Sulfonamide Allergy Rash/Hives Verified 02/04/18 12:19 Antibiotics) Review of Systems ROS Statement: Those systems with pertinent positive or pertinent negative responses have been documented in the HPI. ROS Other: All systems not noted in ROS Statement are negative. Past Medical History Past Medical History: Chest Pain / Angina, Hypertension, Respiratory Disorder, Sleep Apnea/CPAP/BIPAP Additional Past Medical History / Comment(s): head injury in the past, cyst on right kidney History of Any Multi-Drug Resistant Organisms: None Reported Past Surgical History: Section, Heart Catheterization, Uterine Ablation Additional Past Surgical History / Comment(s): eye surgery, lithotripsy, OVARIAN CYST REMOVED RIGHT SIDE Past Anesthesia/Blood Transfusion Reactions: No Reported Reaction Past Psychological History: Anxiety, Bipolar, Depression, Schizophrenia Smoking Status: Current every day smoker Past Alcohol Use History: None Reported Past Drug Use History: None Reported - Past Family History Mother Family Medical History: Cancer Father Family Medical History: Unable to Obtain General Exam Limitations: no limitations General appearance: alert, in no apparent distress Head exam: Present: atraumatic, normocephalic, normal inspection Eye exam: Present: normal appearance, PERRL, EOMI. Absent: scleral icterus, conjunctival injection, periorbital swelling ENT exam: Present: normal exam, mucous membranes moist Neck exam: Present: normal inspection. Absent: tenderness, meningismus, lymphadenopathy Respiratory exam: Present: normal lung sounds bilaterally. Absent: respiratory distress, wheezes, rales, rhonchi, stridor Cardiovascular Exam: Present: regular rate, normal rhythm, normal heart sounds. Absent: systolic murmur, diastolic murmur, rubs, gallop, clicks GI/Abdominal exam: Present: soft, normal bowel sounds. Absent: distended, tenderness, guarding, rebound, rigid Extremities exam: Present: normal inspection, full ROM, normal capillary refill. Absent: tenderness, pedal edema, joint swelling, calf tenderness Back exam: Present: normal inspection Neurological exam: Present: alert, oriented X3, CN II-XII intact Psychiatric exam: Present: normal affect, normal mood Skin exam: Present: warm, dry, intact, normal color. Absent: rash Course Vital Signs 02/07/18 14:17 Temperature 98.1 F Pulse Rate 75 Respiratory 20 Rate Blood Pressure 121/68 O2 Sat by Pulse 96 Oximetry - Reevaluation(s) Reevaluation #1: 02/07/18 14:31 Patient asking to leave, states that she feels fine everything is okay Medical Decision Making - Medical Decision Making 52 female the ER for evaluation, syncopal event at [facility] today, EMS called by the patient bear, patient currently has no complaints. States her blood pressure muscle dropped low, currently asking for gum. Patient can be discharged home Disposition Clinical Impression: Syncope, Chest pain, Vasovagal syncope Disposition: HOME SELF-CARE Condition: Good Instructions: Syncope (ED) Is patient prescribed a controlled substance at d/c from ED?: No Referrals: Perri Mcqueen MD [Primary Care Provider] - 1-2 days
[2018-02-07 15:23] VITALS: BP 146/91; PULSE 78; TEMP 98.5
== END 2018-02-07 15:21 | disposition home or self-care (01) ==
LOC: EC 14:06
DX: R55 Syncope and collapse (principal); R07.9 Chest pain, unspecified; I10 Essential (primary) hypertension; F20.9 Schizophrenia, unspecified; F17.200 Nicotine dependence, unspecified, uncomplicated; G47.30 Sleep apnea, unspecified; Z99.89 Dependence on other enabling machines and devices; Z95.818 Presence of other cardiac implants and grafts; Z79.02 Long term (current) use of antithrombotics/antiplatelets; Z79.899 Other long term (current) drug therapy; Z88.8 Allergy status to other drugs, medicaments and biological substances; Z91.041 Radiographic dye allergy status; Z91.040 Latex allergy status; Z88.0 Allergy status to penicillin; Z88.5 Allergy status to narcotic agent; Z88.1 Allergy status to other antibiotic agents; Z88.2 Allergy status to sulfonamides
CPT/HCPCS: 99284

== ENCOUNTER 2018-03-29 23:21 | Observation (INO) | payer MEDICARE, OTHER ==
[2018-03-29] MEDS ORDERED: SODIUM CHLORIDE 0.9% 1,000 ML IV STA (23:37)
[2018-03-29] MEDS ORDERED: SODIUM CHLORIDE 0.9% 500 ML IV STA (23:37)
[2018-03-30 00:25] LABS: Basophils # (A) 0.1 k/uL (0-0.2); Basophils % (A) 1 %; Eosinophils # (A) 0.2 k/uL (0-0.7); Eosinophils % (A) 2 %; HCT 42.7 % (34.0-46.0); HGB 14.7 gm/dL (11.4-16.0); Lymphocytes # (A) 3.6 k/uL (1.0-4.8); Lymphocytes % (A) 33 %; MCH 33.1 pg (25.0-35.0); MCHC 34.4 g/dL (31.0-37.0); Mean Platelet Volume 7.9; Monocytes # (A) 0.7 k/uL (0-1.0); Monocytes % (A) 7 %; Neutrophils % (A) 56 %; Platelet Count 288 k/uL (150-450); RBC 4.44 m/uL (3.80-5.40); RDW 12.9 % (11.5-15.5); WBC 10.7 k/uL (3.8-10.6)
[2018-03-30 00:34] LABS: ALT 32 U/L (9-52); AST 19 U/L (14-36); Albumin 3.9 g/dL (3.5-5.0); Alkaline Phosphatase 76 U/L (38-126); Anion Gap 11 mmol/L; Blood Urea Nitrogen 14 mg/dL (7-17); Calcium 9.4 mg/dL (8.4-10.2); Carbon Dioxide 26 mmol/L (22-30); Chloride 97 mmol/L (98-107); Glucose 95 mg/dL (74-99); Magnesium 1.7 mg/dL (1.6-2.3); Potassium 3.4 mmol/L (3.5-5.1); Sodium 134 mmol/L (137-145); Total Bilirubin 0.2 mg/dL (0.2-1.3); Total Protein 6.6 g/dL (6.3-8.2)
[2018-03-30 00:44] LABS: Partial Thromboplastin Time 24.7 sec (22.0-30.0); Prothrombin Time 9.8 sec (9.0-12.0)
[2018-03-30 00:58] LABS: Creatine Kinase 80 U/L (30-135)
[2018-03-30 01:11] LABS: Creatine Kinase MB 1.5 ng/mL (0.0-2.4); Troponin I <0.012 ng/mL (0.000-0.034)
[2018-03-30] MEDS ORDERED: NITROGLYCERIN SL TABS 0.4 MG TAB SUBLINGUAL PRN (01:12)
--- NOTE | 2018-03-30 01:12 | ED ---
General Adult HPI - General Chief complaint: Recheck/Abnormal Lab/Rx Stated complaint: hypotensive Time Seen by Provider: 03/29/18 23:26 Source: patient, EMS Mode of arrival: EMS Limitations: no limitations - History of Present Illness Initial comments: 22 years old female comes from a halfway, presenting complaint is low blood pressure blood pressure was taken 3 times a day halfway he was 88/50, he is at time he was 72/59.She felt dizzy she'll hard time walking because of the dizziness. She denies any headaches no blurred vision no slurredno chest pain or shortness of breath no pleuritic chest pain - Related Data Home Medications Medication Instructions Recorded Confirmed cloNIDine HCL 0.3 mg PO TID 02/11/16 03/29/18 Losartan Potassium [Cozaar] 100 mg PO DAILY 03/26/16 03/29/18 Ergocalciferol [Vitamin D2] 50,000 unit PO Q14D 09/19/17 03/29/18 cloNIDine HCL [Catapres] 0.1 mg PO BID PRN 11/15/17 03/29/18 fluPHENAZine DECANOATE [Prolixin 50 mg IM Q7D 12/14/17 03/29/18 Decanoate] Carvedilol [Coreg] 25 mg PO BID 02/07/18 03/29/18 Ipratropium-Albuterol Nebulize 3 ml INHALATION RT-QID PRN 02/07/18 03/29/18 [Duoneb 0.5 mg-3 mg/3 ml Soln] Nystatin 100,000 Unit/gm Powd 1 applic TOPICAL BID 02/07/18 03/29/18 [Mycostatin Powder] Benzocaine/Menthol Lozeng [Cepacol 1 lozenge MUCOUS MEM Q4HR PRN 03/29/18 lozenge] Vortioxetine Hydrobromide 10 mg PO HS@1700 03/29/18 03/29/18 [Trintellix] Allergies Allergy/AdvReac Type Severity Reaction Status Date / Time diphenhydramine Allergy Itching Verified 03/29/18 23:37 [From Benadryl] Iodinated Contrast- Oral and Allergy Rash/Hives Verified 03/29/18 23:37 IV Dye latex Allergy Rash/Hives Verified 03/29/18 23:37 Penicillins Allergy Rash/Hives Verified 03/29/18 23:37 propoxyphene Allergy Unknown Verified 03/29/18 23:37 Quinolones Allergy Rash/Hives Verified 03/29/18 23:37 Sulfa (Sulfonamide Allergy Rash/Hives Verified 03/29/18 23:37 Antibiotics) Review of Systems ROS Statement: Those systems with pertinent positive or pertinent negative responses have been documented in the HPI. ROS Other: All systems not noted in ROS Statement are negative. Past Medical History Past Medical History: Chest Pain / Angina, Hypertension, Respiratory Disorder, Sleep Apnea/CPAP/BIPAP Additional Past Medical History / Comment(s): head injury in the past, cyst on right kidney History of Any Multi-Drug Resistant Organisms: None Reported Past Surgical History: Section, Heart Catheterization, Uterine Ablation Additional Past Surgical History / Comment(s): eye surgery, lithotripsy, OVARIAN CYST REMOVED RIGHT SIDE Past Anesthesia/Blood Transfusion Reactions: No Reported Reaction Past Psychological History: Anxiety, Bipolar, Depression, Schizophrenia Smoking Status: Current every day smoker Past Alcohol Use History: None Reported Past Drug Use History: None Reported - Past Family History Mother Family Medical History: Cancer Father Family Medical History: Unable to Obtain General Exam - General Exam Comments Initial Comments: General: The patient is awake and alert, in no distress, and does not appear acutely ill. Skin: Skin is warm and dry and no rashes or lesions are noted. Eye: Pupils are equal, round and reactive to light, extra-ocular movements are intact; there is normal conjunctiva bilaterally. Ears, nose, mouth and throat: There are moist mucous membranes and no oral lesions. Neck: The neck is supple, there is no tenderness or JVD. Cardiovascular: There is a regular rate and rhythm. No murmur, rub or gallop is appreciated. Respiratory: To auscultation bilateral, no wheezing no rhonchi no distress respiratory becerra noticed Gastrointestinal: Soft, non-distended, non-tender abdomen without masses or organomegaly noted. There is no rebound or guarding present. Bowel sounds are unremarkable. Back: There is no tenderness to palpation in the midline. There is no obvious deformity. Musculoskeletal: Normal ROM, no tenderness, There is no pedal edema. There is no calf tenderness or swelling. No cords were appreciated. Neurological: CN II-XII intact, Cranial nerves III through XII are intact. There are no obvious motor or sensory deficits. Coordination appears grossly intact. Speech is normal. Psychiatric: Cooperative, appropriate mood & affect, normal judgment. Limitations: no limitations Course Vital Signs 03/29/18 03/30/18 03/30/18 23:34 00:20 00:27 Temperature 98.0 F Pulse Rate 68 64 Pulse Rate [ 64 Field Associate ] Respiratory 18 18 Rate Blood Pressure 80/53 104/65 O2 Sat by Pulse 91 L 98 Oximetry EKG, CBC, CMP I is fine waited noticed that she was quite hypertensive in here began (for observation will titrate her dose downwards to make sure she is not orthostatic and she is not dizzy when she ambulates patient be admitted to Dr. Solorio EKG Findings - EKG Comments: EKG Findings:: EKG is normal sinus ventricular rate is 67 ME interval is 26 QRS duration is 90 QT/QTc is 460/46 review of this EKG does not reveal any ST elevation or ST depression Medical Decision Making - Lab Data Result diagrams: 03/30/18 00:01 03/30/18 00:01 Lab Results 03/30/18 03/30/18 03/30/18 Range/Units 00:01 00:01 00:01 WBC 10.7 H (3.8-10.6) k/uL RBC 4.44 (3.80-5.40) m/uL Hgb 14.7 (11.4-16.0) gm/dL Hct 42.7 (34.0-46.0) % MCV 96.0 (80.0-100.0) fL MCH 33.1 (25.0-35.0) pg MCHC 34.4 (31.0-37.0) g/dL RDW 12.9 (11.5-15.5) % Plt Count 288 (150-450) k/uL Neutrophils % 56 % Lymphocytes % 33 % Monocytes % 7 % Eosinophils % 2 % Basophils % 1 % Neutrophils # 6.0 (1.3-7.7) k/uL Lymphocytes # 3.6 (1.0-4.8) k/uL Monocytes # 0.7 (0-1.0) k/uL Eosinophils # 0.2 (0-0.7) k/uL Basophils # 0.1 (0-0.2) k/uL PT 9.8 (9.0-12.0) sec INR 1.0 (<1.2) APTT 24.7 (22.0-30.0) sec Sodium 134 L (137-145) mmol/L Potassium 3.4 L (3.5-5.1) mmol/L Chloride 97 L (98-107) mmol/L Carbon Dioxide 26 (22-30) mmol/L Anion Gap 11 mmol/L BUN 14 (7-17) mg/dL Creatinine 0.70 (0.52-1.04) mg/dL Est GFR (CKD-EPI)AfAm >90 (>60 ml/min/1.73 sqM) Est GFR (CKD-EPI)NonAf >90 (>60 ml/min/1.73 sqM) Glucose 95 (74-99) mg/dL Calcium 9.4 (8.4-10.2) mg/dL Magnesium 1.7 (1.6-2.3) mg/dL Total Bilirubin 0.2 (0.2-1.3) mg/dL AST 19 (14-36) U/L ALT 32 (9-52) U/L Alkaline Phosphatase 76 (38-126) U/L Total Protein 6.6 (6.3-8.2) g/dL Albumin 3.9 (3.5-5.0) g/dL Disposition Clinical Impression: Hypotension, Dizziness Disposition: ADMITTED IP TO THIS HOSP Condition: Good Referrals: [facility] [Primary Care Provider] - 1-2 days
[2018-03-30] MEDS ORDERED: IPRATROPIUM-ALBUTEROL 3 ML NEB INHALATION PRN (01:14)
[2018-03-30] MEDS ORDERED: BENZOCAINE/MENTHOL LOZENG 1 EACH LOZENGE MUCOUS MEM PRN (01:14)
--- NOTE | 2018-03-30 01:37 | XR ---
EXAMINATION TYPE: XR chest 2V DATE OF EXAM: 03/30/2018 COMPARISON: 12/26/2017 HISTORY: Chest pain TECHNIQUE: Frontal and lateral views of the chest are obtained. FINDINGS: There is some coarsening of interstitial markings. Heart size is normal. There is no heart failure. There are chest leads. Costophrenic angles are clear. Bony thorax is intact. IMPRESSION: New pulmonary bilateral interstitial infiltrates compared to old exam. No gross heart fa ilure.
[2018-03-30] MEDS ORDERED: NICOTINE 14MG/24HR PATCH TRANSDERM STA (01:46)
[2018-03-30 02:59] VITALS: BMI 36.1
[2018-03-30] MEDS ORDERED: POTASSIUM CHLORIDE ER 20 MEQ TAB.ER PO STA (06:21)
--- NOTE | 2018-03-30 06:33 | P.HPIM ---
History of Present Illness H&P Date: 03/30/18 Chief Complaint: Symptomatic hypotension 52-year-old female with history of hypertension, and mentally challenged. Patient lives at the assisted and has been having low blood pressure readings all day for which she was sent to the hospital. Patient indicated that a week ago she has seen her sleep scientist however she has not reported to him syncope or dizziness. No changes were made to her medications. Patient admits to frequent syncopal attacks over the past 6 months usually when she is trying to stand up from a sitting or laying down position she will feel dizzy and will pass out for unknown duration of time no injuries has been sustained thus far. She also reported some chest pain, usually when she she is laying down doing nothing this is associated with shortness of breath sometimes otherwise no heart racing and noted no dizziness no sweating and no nausea no vomiting associated with this. Usually pain will go away after she takes her medications usually pain will last for couple hours she has not mentioned to them that to anyone and no workup has been done before. Otherwise patient denies any vision or hearing changes she denies any trouble breathing at this time she denies any abdominal pain or changes in her bowel or urinary habits she denies any GI bleeding. Patient feels fine now laying down in her bed she has received a bolus of 1 L normal saline in the ED due to hypotension. Patient admitted for further care and monitoring After doing chart review seems like she has multiple visits to the emergency department with complaint of chest pain. She seems to have anginal chest pain and received left heart cath in December 2016 which showed no significant coronary artery disease and the report read clean cath. 2-D echocardiogram done in 2017 showed left ventricular ejection fraction of 55-60%, however it did suggest some changes related to uncontrolled hypertension Review of Systems Pertinent positives as noted in HPI. All other systems were reviewed and are negative Past Medical History Past Medical History: Chest Pain / Angina, Hypertension, Respiratory Disorder, Sleep Apnea/CPAP/BIPAP Additional Past Medical History / Comment(s): head injury in the past, cyst on right kidney History of Any Multi-Drug Resistant Organisms: None Reported Past Surgical History: Section, Heart Catheterization, Uterine Ablation Additional Past Surgical History / Comment(s): eye surgery, lithotripsy, OVARIAN CYST REMOVED RIGHT SIDE Past Anesthesia/Blood Transfusion Reactions: No Reported Reaction Past Psychological History: Anxiety, Bipolar, Depression, Schizophrenia Additional Psychological History / Comment(s): pt only states that she has depression Smoking Status: Current every day smoker Past Alcohol Use History: None Reported Past Drug Use History: None Reported - Past Family History Mother Family Medical History: Cancer Father Family Medical History: Unable to Obtain Medications and Allergies Home Medications Medication Instructions Recorded Confirmed Type cloNIDine HCL 0.3 mg PO TID 02/11/16 03/29/18 History Losartan Potassium [Cozaar] 100 mg PO DAILY 03/26/16 03/29/18 History Ergocalciferol [Vitamin D2] 50,000 unit PO Q14D 09/19/17 03/29/18 History cloNIDine HCL [Catapres] 0.1 mg PO BID PRN 11/15/17 03/29/18 History fluPHENAZine DECANOATE [Prolixin 50 mg IM Q7D 12/14/17 03/29/18 History Decanoate] Carvedilol [Coreg] 25 mg PO BID 02/07/18 03/29/18 History Ipratropium-Albuterol Nebulize 3 ml INHALATION RT-QID PRN 02/07/18 03/29/18 History [Duoneb 0.5 mg-3 mg/3 ml Soln] Nystatin 100,000 Unit/gm Powd 1 applic TOPICAL BID 02/07/18 03/29/18 History [Mycostatin Powder] Benzocaine/Menthol Lozeng [Cepacol 1 lozenge MUCOUS MEM Q4HR PRN 03/29/18 History lozenge] Vortioxetine Hydrobromide 10 mg PO HS@1700 03/29/18 03/29/18 History [Trintellix] Allergies Allergy/AdvReac Type Severity Reaction Status Date / Time diphenhydramine Allergy Itching Verified 03/29/18 23:37 [From Benadryl] Iodinated Contrast- Oral and Allergy Rash/Hives Verified 03/29/18 23:37 IV Dye latex Allergy Rash/Hives Verified 03/29/18 23:37 Penicillins Allergy Rash/Hives Verified 03/29/18 23:37 propoxyphene Allergy Unknown Verified 03/29/18 23:37 Quinolones Allergy Rash/Hives Verified 03/29/18 23:37 Sulfa (Sulfonamide Allergy Rash/Hives Verified 03/29/18 23:37 Antibiotics) Physical Exam Vitals: Vital Signs Temp Pulse Pulse Resp BP BP Pulse Ox 03/30/18 03:15 96.8 F L 70 18 114/75 97 03/30/18 02:43 97.9 F 72 18 106/75 100 03/30/18 01:39 67 116/66 98 03/30/18 01:14 65 138/90 98 03/30/18 00:27 64 03/30/18 00:20 64 18 104/65 98 03/29/18 23:34 98.0 F 68 18 80/53 91 L Intake and Output 03/29/18 03/29/18 03/30/18 14:59 22:59 06:59 Other: Voiding Method Toilet Weight 92.5 kg Constitutional: No acute distress, patient seems to be apprehensive answers with very short sentences most of the times with yes and no, she does not respond most of the time to open and questions Eyes: Anicteric sclerae, moist conjunctiva, no lid-lag Pupils equal round reactive to light ENMT: NC/AT Oropharynx clear, no erythema, or exudates Neck: Supple, FROM, no masses, or JVD No carotid bruits No thyromegaly Lungs: Clear to auscultation Clear to percussion Normal respiratory effort, no accessory muscle use Cardiovascular: Heart regular in rate and rhythm, No murmurs, gallops, or rubs No peripheral edema Abdominal: Soft, obese Nontender, no guarding, rebound or rigidity Abdomen moving with respiration Normoactive bowel sounds No hepatomegaly, No splenomegaly No palpable mass No abdominal wall hernia noted Skin: Normal temperature, tone, texture, turgor No induration No subcutaneous nodules No rash, lesions No ulcers Extremities: No digital cyanosis No clubbing Pedal pulses intact and symmetrical Radial pulses intact and symmetrical No calf tenderness Psychiatric: Alert and oriented to person, place not oriented to time Patient looks paranoid Poor judgment Neuro Muscles Strength 5/5 in all 4 extremities Sensation to light touch grossly present throughout Cranial nerves II-XII grossly intact No focal sensory deficits Lymphatics: no palpable cervical or supraclavicular , or inguinal lymph nodes Results CBC & Chem 7: 03/30/18 00:01 03/30/18 00:01 Labs: Abnormal Lab Results - Last 24 Hours (Table) 03/30/18 03/30/18 Range/Units 00:01 00:01 WBC 10.7 H (3.8-10.6) k/uL Sodium 134 L (137-145) mmol/L Potassium 3.4 L (3.5-5.1) mmol/L Chloride 97 L (98-107) mmol/L Thrombosis Risk Factor Assmnt - Choose All That Apply Any of the Below Risk Factors Present?: Yes Each Factor Represents 1 point: Obesity (BMI >25) Thrombosis Risk Factor Assessment Total Risk Factor Score: 1 Thrombosis Risk Factor Assessment Level: Low Risk Assessment and Plan Assessment: 52-year-old female with history of hypertension. Patient is admitted under observation with expected length of stay of less than 48 hours for symptomatic hypotension. She lives at a assisted and her blood pressure been running low. Patient admitted for further care and investigation. She admitted to frequent attack of syncopes over the past 6 months After doing chart review seems like she has multiple visits to the emergency department with complaint of chest pain. She seems to have anginal chest pain and received left heart cath in December 2016 which showed no significant coronary artery disease and the report read clean cath. 2-D echocardiogram done in 2017 showed left ventricular ejection fraction of 55-60%, however it did suggest some changes related to uncontrolled hypertension Plan: #Symptomatic hypotension with dizziness #Orthostatic dizziness #Frequent attacks of syncope Patient was found to have low blood pressure Adjustments made to clonidine dose down to 0.2 mg 3 times a day Hold hydrochlorothiazide Continue losartan Continue Coreg Cardiology consult 2-D echocardiogram Cardiac monitoring #Hypokalemia replace by mouth Monitor levels #Tobacco smoking Nicotine replacement therapy DVT prophylaxis Heparin subcu 3 times a day Surrogate decision-maker: Public Guardian Treva Sams CODE STATUS: Full code Discussed with: Patient, ER Anticipated discharge: <[address]: Home A total of 50 minutes was spent on the care of this complex patient more than 50 % of the time was spent in counseling and care coordination.
[2018-03-30 07:21] LABS: Creatine Kinase 79 U/L (30-135)
[2018-03-30] MEDS ORDERED: CARVEDILOL 12.5 MG TAB PO SCH ×2 (07:30→09:00)
[2018-03-30 07:33] LABS: Creatine Kinase MB 1.6 ng/mL (0.0-2.4); Troponin I <0.012 ng/mL (0.000-0.034)
[2018-03-30] MEDS ORDERED: HEPARIN SODIUM,PORCINE 5,000 UNIT/ML 1 ML VIAL SQ SCH (08:00)
[2018-03-30] MEDS ORDERED: NYSTATIN 100,000 UNIT/GM POWD 15 GM TOPICAL SCH (09:00)
[2018-03-30] MEDS ORDERED: NICOTINE 21MG/24HR PATCH TRANSDERM SCH ×2 (09:00→14:13)
[2018-03-30] MEDS ORDERED: cloNIDine HCL 0.1 MG TAB PO SCH (09:00)
[2018-03-30] MEDS ORDERED: LOSARTAN 50 MG TAB PO SCH ×2 (09:00)
[2018-03-30] MEDS ORDERED: cloNIDine HCL 0.2 MG TAB PO SCH (09:00)
[2018-03-30] MEDS ORDERED: ALBUTEROL NEBULIZED 2.5 MG/3 ML INHALATION PRN (10:01)
[2018-03-30] MEDS ORDERED: DOXYCYCLINE MONOHYDRATE 100 MG CAPSULE PO SCH (10:15)
--- NOTE | 2018-03-30 10:22 | CONS ---
CONSULTATION CHIEF COMPLAINT: Hypotension. This is a 52-year-old lady with history of hypertension who is developmentally challenged and lives at a retirement. Was sent to the hospital because of hypotension. Patient has had syncopal events in the past, has had problems where her blood pressures were very high and very low. This time she was sent in because she felt somewhat dizzy and had a near syncopal event. Her blood pressures were low, initially and her medications were adjusted. She was given IV fluids following which she became symptom free. She had a cardiac catheterization in 2017 that revealed normal coronaries. Had an echocardiogram that showed normal LV function. She is somewhat noncompliant with medications. PAST MEDICAL HISTORY: Significant for hypertension, COPD. CURRENT MEDICATIONS: Include Catapres 0.3 t.i.d., losartan 100 q. daily, Catapres 0.1 b.i.d., Coreg 25 b.i.d., DuoNeb, Mycostatin. Allergies are as charted. FAMILY HISTORY: Negative for premature coronary artery disease. SOCIAL HISTORY: Significant for smoking. Past medical history is also significant for anxiety, bipolar mood disorder, and schizophrenia. REVIEW OF SYSTEMS: HEENT is unremarkable. CARDIAC: As described above. RESPIRATORY: As described above. GI: Negative. GENITOURINARY: Negative. ALLERGY/IMMUNOLOGY: Negative. SKIN: Negative. MUSCULOSKELETAL: Significant for arthritis. PSYCHOSOCIAL: Negative. ENDOCRINE: Negative. DERMATOLOGICAL: Negative. CONSTITUTIONAL: Negative. ONCOLOGICAL: Negative Rest of the system review is not relevant. PHYSICAL EXAM: She is comfortable at rest. Vital signs are stable. There is no jugular venous distention. Carotid upstroke is normal. There is no bruit. Chest exam reveals good air entry bilaterally. Heart exam reveals first and second heart sounds. No gallop. No murmur. No rub. Abdomen is soft, nontender. Exam of extremities did not reveal any edema. Peripheral pulses are felt. EKG shows sinus rhythm with poor R-wave progression. LABS: Show a hemoglobin of 14.7, platelet count is 288, potassium is 3.4, creatinine is 0.7, two sets of tropes are negative. ASSESSMENT: 1. Symptomatic hypotension. 2. History of hypertension. 3. Bipolar mood disorder. PLAN: Patient's hypertension is related to polypharmacy. I am going to cut down the dose of Catapres to 0.1 t.i.d., stop the IV fluids, ambulate her and see how she does. If she is doing well, she may be able to be discharged home either this afternoon or tomorrow morning. Thank you for allowing us to participate in this pleasant lady. HILLARY / JAMES: [id number] /
--- NOTE | 2018-03-30 11:45 | ECHOF ---
Referral Reason:syncope MEASUREMENTS -------- HEIGHT: 160.0 cm WEIGHT: 92.1 kg BP: 116/77 RVIDd: 3.3 cm (< 3.3) IVSd: 1.1 cm (0.6 - 1.1) LVIDd: 4.6 cm (3.9 - 5.3) LVPWd: 1.1 cm (0.6 - 1.1) IVSs: 1.7 cm LVIDs: 2.8 cm LVPWs: 1.6 cm LA Diam: 3.6 cm (2.7 - 3.8) LAESV Index (A-L): 14.70 ml/m Ao Diam: 2.6 cm (2.0 - 3.7) AV Cusp: 1.9 cm (1.5 - 2.6) MV EXCURSION: 13.883 mm (> 18.000) MV EF SLOPE: 62 mm/s (70 - 150) EPSS: 0.4 cm MV E Qasim: 0.97 m/s MV DecT: 265 ms MV A Qasim: 0.89 m/s MV E/A Ratio: 1.09 AV maxP.39 mmHg AV meanP.38 mmHg FINDINGS -------- Sinus rhythm. This was a technically adequate study. The left ventricular size is normal. There is borderline concentric left ventricular hypertrophy. Overall left ventricular systolic function is normal with, an EF between 55 - 60 %. The right ventricle is mildly enlarged. Normal LA size by volume 22+/-6 ml/m2. The right atrium is normal in size. The aortic valve was not well visualized. Mild mitral annular calcification present. The tricuspid valve appears structurally normal. There is no pulmonic regurgitation present. The aortic root size is normal. Normal inferior vena cava with normal inspiratory collapse consistent with estimated right atrial pre ssure of 5 mmHg. The inferior vena cava is mildly dilated. There is no pericardial effusion. CONCLUSIONS -------- 1. Sinus rhythm. 2. This was a technically adequate study. 3. The left ventricular size is normal. 4. There is borderline concentric left ventricular hypertrophy. 5. Overall left ventricular systolic function is normal with, an EF between 55 - 60 %. 6. The right ventricle is mildly enlarged. 7. Normal LA size by volume 22+/-6 ml/m2. 8. The right atrium is normal in size. 9. The aortic valve was not well visualized. 10. Mild mitral annular calcification present. 11. The tricuspid valve appears structurally normal. 12. There is no pulmonic regurgitation present. 13. The aortic root size is normal. 14. Normal inferior vena cava with normal inspiratory collapse consistent with estimated right atrial pressure of 5 mmHg. 15. The inferior vena cava is mildly dilated. 16. There is no pericardial effusion. CONFIGURATION SPECIALIST: Ally Lewis RDCS
[2018-03-30] MEDS ORDERED: IPRATROPIUM-ALBUTEROL 3 ML NEB INHALATION SCH (12:00)
[2018-03-30] MEDS ORDERED: ERGOCALCIFEROL 50,000 UNIT CAP PO SCH (12:00)
[2018-03-30] MEDS: cloNIDine HCL 0.1 MG TAB PO SCH ×2 (12:07→16:30)
[2018-03-30 12:23] VITALS: RESP 16
[2018-03-30 12:23] LABS: Creatine Kinase 68 U/L (30-135)
[2018-03-30 12:35] LABS: Creatine Kinase MB 1.1 ng/mL (0.0-2.4); Troponin I <0.012 ng/mL (0.000-0.034)
[2018-03-30 12:58] LABS: Appearance,Urine Cloudy (Clear); Bilirubin,Urine Negative (Negative); Blood,Urine Trace (Negative); Color,Urine Light Yellow; Glucose,Urine (UA) Negative (Negative); Ketones,Urine Negative (Negative); Leukocyte Esterase,Urine Negative (Negative); Mucus,Urine Rare /hpf; Nitrite,Urine Negative (Negative); Protein,Urine Negative (Negative); Specific Gravity,Urine 1.006 (1.001-1.035); Squamous Epithelial Cell,Urine 3 /hpf (0-4); Urobilinogen,Urine <2.0 mg/dL (<2.0); WBC,Urine 1 /hpf (0-5)
--- NOTE | 2018-03-30 16:06 | P.DS ---
Providers Date of admission: 03/30/18 01:12 Expected date of discharge: 03/30/18 Attending physician: Karl Granados MD Consults: 03/30/18 06:34 Consult Physician Routine Consulting Provider: Clay Chang Consult Reason/Comments: hypotension, report anginal chest pain, reoprts syncope Do you want consulting provider notified?: Yes Primary care physician: [facility] Course: Discharge diagnoses: Orthostatic dizziness Symptomatic hypotension with dizziness Acute bronchitis Hypokalemia Tobacco abuse Patient is a 52-year-old female with a history of hypertension, sleep apnea, and angina lives in a usp with a court appointed guardian who presented to the hospital at direction of the usp for having low blood pressures all day. In the emergency department she was found to have low blood pressures. On arrival to the emergency department she was found to have a systolic blood pressure in the 80s. Laboratory analysis revealed a slightly low potassium at 3.4 and a slightly elevated white blood cell count at 10.7. Chest x-ray showed possible interstitial infiltrates. She received 1 L of IV fluids and her blood pressure normalized. She was admitted for further care of her hypotension. She was seen by cardiology and medication adjustments were made. She underwent an echocardiogram which was within normal limits. She was monitored throughout the afternoon her blood pressure was going up. She actually developed some hypertension after getting upset and wanting to be discharged. With her blood pressure normalized and a normal echocardiogram she was determined stable for discharge home. She had also been started on doxycycline and prednisone for possible acute bronchitis. She was told to continue using her nebulizer at home. She'll follow-up with Dr. Sterling in 2 weeks and her PCP in 2-3 days. He was also given instructions to report her blood pressure and make a log to bring to Dr. Sterling's appointment. Medication changes: Coreg was decreased to 12.5 mg twice daily, clonidine was decreased to 0.2 mg 3 times daily, and Cozaar was decreased to 50 mg daily Patient seen and examined at bedside. She denies any more dizziness. Feeling well. No chest pain. Chronic shortness of breath is improved. Unsure if wheezing. Vital signs reviewed and stable. General: , no distress, appears at stated age Derm: warm, dry Head: atraumatic, normocephalic, symmetric Eyes: EOMI, no lid lag, anicteric sclera Mouth: no lip lesion, mucus membranes moist Cardiovascular: S1S2 reg, no murmur, positive posterior tibial pulse bilateral, Lungs: Faint wheeze bilateral , no accessory muscle use Abdominal: soft, nontender to palpation, no guarding, no appreciable organomegaly Ext: no gross muscle atrophy, no edema, no contractures Neuro: CN II-XI grossly intact, no focal neuro deficits Psych: Alert, oriented, LAD affect with delayed responses A total of 25 minutes of time were spent preparing this complex discharge summary . Patient Condition at Discharge: Good Plan - Discharge Summary New Discharge Prescriptions: New Carvedilol [Coreg*] 12.5 mg PO BID-W/MEALS #60 tab cloNIDine HCL [Catapres] 0.2 mg PO TID #90 tablet Doxycycline Monohydrate [Vibramycin] 100 mg PO DAILY #5 capsule Losartan [Cozaar] 50 mg PO DAILY #30 tab predniSONE 40 mg PO DAILY #10 tab Continue Ergocalciferol [Vitamin D2 (DRISDOL)] 50,000 unit PO Q14D fluPHENAZine DECANOATE [Prolixin Decanoate] 50 mg IM Q7D Nystatin 100,000 Unit/gm Powd [Mycostatin Powder] 1 applic TOPICAL BID Ipratropium-Albuterol Nebulize [Duoneb 0.5 mg-3 mg/3 ml Soln] 3 ml INHALATION RT-QID PRN PRN Reason: Shortness Of Breath Vortioxetine Hydrobromide [Trintellix] 10 mg PO HS@1700 Benzocaine/Menthol Lozeng [Cepacol lozenge] 1 lozenge MUCOUS MEM Q4HR PRN PRN Reason: Sore Throat Discontinued cloNIDine HCL 0.3 mg PO TID Losartan Potassium [Cozaar] 100 mg PO DAILY cloNIDine HCL [Catapres] 0.1 mg PO BID PRN PRN Reason: Blood Pressure - High Carvedilol [Coreg] 25 mg PO BID Discharge Medication List Ergocalciferol [Vitamin D2 (DRISDOL)] 50,000 unit PO Q14D 09/19/17 [History] fluPHENAZine DECANOATE [Prolixin Decanoate] 50 mg IM Q7D 12/14/17 [History] Ipratropium-Albuterol Nebulize [Duoneb 0.5 mg-3 mg/3 ml Soln] 3 ml INHALATION RT -QID PRN 02/07/18 [History] Nystatin 100,000 Unit/gm Powd [Mycostatin Powder] 1 applic TOPICAL BID 02/07/18 [History] Benzocaine/Menthol Lozeng [Cepacol lozenge] 1 lozenge MUCOUS MEM Q4HR PRN [History] Vortioxetine Hydrobromide [Trintellix] 10 mg PO HS@1700 03/29/18 [History] Carvedilol [Coreg*] 12.5 mg PO BID-W/MEALS #60 tab 03/30/18 [Rx] Doxycycline Monohydrate [Vibramycin] 100 mg PO DAILY #5 capsule 03/30/18 [Rx] Losartan [Cozaar] 50 mg PO DAILY #30 tab 03/30/18 [Rx] cloNIDine HCL [Catapres] 0.2 mg PO TID #90 tablet 03/30/18 [Rx] predniSONE 40 mg PO DAILY #10 tab 03/30/18 [Rx] Follow up Appointment(s)/Referral(s): [facility] [Primary Care Provider] - 1-2 days Sanchez Feliciano MD [STAFF PHYSICIAN] - 2 Weeks Activity/Diet/Wound Care/Special Instructions: regular diet activity as tolerated Take blood pressure once daily and make a log to bring with you to your doctors appointment Discharge Disposition: HOME SELF-CARE
[2018-03-30 16:43] VITALS: BP 175/101; PULSE 72; TEMP 98.5
[2018-03-30] MEDS ORDERED: NON-FORMULARY DRUG (Vortioxetine Hydrobromide [Trintellix] 10 MG) PO SCH (17:00)
[2018-04-02] MEDS ORDERED: fluPHENAZine DECANOATE 25 MG/ML 5ML MDV IM SCH (09:00)
== END 2018-03-30 17:09 | disposition home or self-care (01) ==
LOC: EEVIPCON 23:21 → EC 23:21 → 6SEL 03-30 01:12 → 3OBS 03-30 14:47
PROVIDERS: ADMIT Internal Medicine; ATTEND Internal Medicine
DX: I95.1 Orthostatic hypotension (principal); J44.0 Chronic obstructive pulmonary disease with (acute) lower respiratory infection; J20.9 Acute bronchitis, unspecified; I20.9 Angina pectoris, unspecified; I10 Essential (primary) hypertension; E87.6 Hypokalemia; F31.9 Bipolar disorder, unspecified; F20.9 Schizophrenia, unspecified; F89 Unspecified disorder of psychological development; F41.9 Anxiety disorder, unspecified; G47.30 Sleep apnea, unspecified; Z99.89 Dependence on other enabling machines and devices; E66.9 Obesity, unspecified; Z68.36 Body mass index [BMI] 36.0-36.9, adult; F17.200 Nicotine dependence, unspecified, uncomplicated; Z91.14 Patient's other noncompliance with medication regimen; M19.90 Unspecified osteoarthritis, unspecified site; Z79.899 Other long term (current) drug therapy; Z88.1 Allergy status to other antibiotic agents; Z91.041 Radiographic dye allergy status; Z91.040 Latex allergy status; Z88.0 Allergy status to penicillin; Z88.2 Allergy status to sulfonamides; Z88.8 Allergy status to other drugs, medicaments and biological substances; Z80.9 Family history of malignant neoplasm, unspecified; T50.905A Adverse effect of unspecified drugs, medicaments and biological substances, initial encounter
CPT/HCPCS: 96360 ×3; 99285 ×2; 36415; 94760; 93005; 93306; 80053; 82550; 82553; 83735; 84484; 85025; 85610; 85730; 81001; 71046; G0378; S4990

== ENCOUNTER 2018-03-31 19:23 | Emergency (ER) | payer MEDICARE, OTHER ==
[2018-03-31 19:34] VITALS: BP 183/85; PULSE 100; RESP 18; TEMP 98.1
--- NOTE | 2018-03-31 20:22 | ED ---
General Adult HPI - General Chief complaint: Chest Pain Stated complaint: Chest pain Time Seen by Provider: 03/31/18 19:53 Source: patient, EMS, RN notes reviewed, old records reviewed Mode of arrival: EMS Limitations: no limitations - History of Present Illness Initial comments: This is a 52-year-old female the ER for evaluation but this patient presents for evaluation regards to chest pain. Chest pain elevated blood pressure. Patient's poor strain history is a continued to be provided by patient's prior records and EMS - Related Data Home Medications Medication Instructions Recorded Confirmed Ergocalciferol [Vitamin D2 50,000 unit PO Q14D 09/19/17 03/29/18 (DRISDOL)] fluPHENAZine DECANOATE [Prolixin 50 mg IM Q7D 12/14/17 03/29/18 Decanoate] Ipratropium-Albuterol Nebulize 3 ml INHALATION RT-QID PRN 02/07/18 03/29/18 [Duoneb 0.5 mg-3 mg/3 ml Soln] Nystatin 100,000 Unit/gm Powd 1 applic TOPICAL BID 02/07/18 03/29/18 [Mycostatin Powder] Benzocaine/Menthol Lozeng [Cepacol 1 lozenge MUCOUS MEM Q4HR PRN 03/29/18 lozenge] Vortioxetine Hydrobromide 10 mg PO HS@1700 03/29/18 03/29/18 [Trintellix] Previous Rx's Medication Instructions Recorded Carvedilol [Coreg*] 12.5 mg PO BID-W/MEALS #60 tab 03/30/18 Doxycycline Monohydrate 100 mg PO DAILY #5 capsule 03/30/18 [Vibramycin] Losartan [Cozaar] 50 mg PO DAILY #30 tab 03/30/18 cloNIDine HCL [Catapres] 0.2 mg PO TID #90 tablet 03/30/18 predniSONE 40 mg PO DAILY #10 tab 03/30/18 Allergies Allergy/AdvReac Type Severity Reaction Status Date / Time diphenhydramine Allergy Itching Verified 03/31/18 19:33 [From Benadryl] Iodinated Contrast- Oral and Allergy Rash/Hives Verified 03/31/18 19:33 IV Dye latex Allergy Rash/Hives Verified 03/31/18 19:33 Penicillins Allergy Rash/Hives Verified 03/31/18 19:33 propoxyphene Allergy Unknown Verified 03/31/18 19:33 Quinolones Allergy Rash/Hives Verified 03/31/18 19:33 Sulfa (Sulfonamide Allergy Rash/Hives Verified 03/31/18 19:33 Antibiotics) Review of Systems ROS Statement: Those systems with pertinent positive or pertinent negative responses have been documented in the HPI. ROS Other: All systems not noted in ROS Statement are negative. Past Medical History Past Medical History: Chest Pain / Angina, Hypertension, Respiratory Disorder, Sleep Apnea/CPAP/BIPAP Additional Past Medical History / Comment(s): head injury in the past, cyst on right kidney History of Any Multi-Drug Resistant Organisms: None Reported Past Surgical History: Section, Heart Catheterization, Uterine Ablation Additional Past Surgical History / Comment(s): eye surgery, lithotripsy, OVARIAN CYST REMOVED RIGHT SIDE Past Anesthesia/Blood Transfusion Reactions: No Reported Reaction Past Psychological History: Anxiety, Bipolar, Depression, Schizophrenia Smoking Status: Current every day smoker Past Alcohol Use History: None Reported Past Drug Use History: None Reported - Past Family History Mother Family Medical History: Cancer Father Family Medical History: Unable to Obtain General Exam Limitations: no limitations General appearance: alert, in no apparent distress Head exam: Present: atraumatic, normocephalic, normal inspection Eye exam: Present: normal appearance, PERRL, EOMI. Absent: scleral icterus, conjunctival injection, periorbital swelling ENT exam: Present: normal exam, mucous membranes moist Neck exam: Present: normal inspection. Absent: tenderness, meningismus, lymphadenopathy Respiratory exam: Present: normal lung sounds bilaterally. Absent: respiratory distress, wheezes, rales, rhonchi, stridor Cardiovascular Exam: Present: regular rate, normal rhythm, normal heart sounds. Absent: systolic murmur, diastolic murmur, rubs, gallop, clicks GI/Abdominal exam: Present: soft, normal bowel sounds. Absent: distended, tenderness, guarding, rebound, rigid Extremities exam: Present: normal inspection, full ROM, normal capillary refill. Absent: tenderness, pedal edema, joint swelling, calf tenderness Back exam: Present: normal inspection Neurological exam: Present: alert, oriented X3, CN II-XII intact Psychiatric exam: Present: normal affect, normal mood Skin exam: Present: warm, dry, intact, normal color. Absent: rash Course Vital Signs 03/31/18 19:28 Temperature 98.1 F Pulse Rate 100 Respiratory 18 Rate Blood Pressure 183/85 O2 Sat by Pulse 97 Oximetry - Reevaluation(s) Reevaluation #1: 03/31/18 20:21 Medical record is reviewed and patient's well-known to facility Reevaluation #2: 03/31/18 20:21 Patient decided that she was feeling better and would like to be discharged home patient left without without for further evaluation EKG Findings - EKG Comments: EKG Findings:: EKG shows normal sinus rhythm rate of 100, MT 176, QRS 80, QTC 479 Medical Decision Making - Medical Decision Making 52 female the ER for chest pain. Chest pain high blood pressure. Patient eloped Disposition Clinical Impression: Chest pain Disposition: Left Against Medical Advice Condition: Undetermined Is patient prescribed a controlled substance at d/c from ED?: No Referrals: [facility] [Primary Care Provider] - 1-2 days
== END 2018-03-31 20:34 | disposition left against medical advice (07) ==
LOC: EC 19:23
DX: R07.9 Chest pain, unspecified (principal); R03.0 Elevated blood-pressure reading, without diagnosis of hypertension; G47.30 Sleep apnea, unspecified; F41.9 Anxiety disorder, unspecified; F31.9 Bipolar disorder, unspecified; F20.9 Schizophrenia, unspecified; F17.200 Nicotine dependence, unspecified, uncomplicated; Z99.89 Dependence on other enabling machines and devices; Z98.890 Other specified postprocedural states; Z79.899 Other long term (current) drug therapy; Z88.0 Allergy status to penicillin; Z88.1 Allergy status to other antibiotic agents; Z88.2 Allergy status to sulfonamides; Z88.5 Allergy status to narcotic agent; Z88.8 Allergy status to other drugs, medicaments and biological substances; Z91.041 Radiographic dye allergy status; Z91.048 Other nonmedicinal substance allergy status
CPT/HCPCS: 93005; 99285

== ENCOUNTER 2018-04-07 13:47 | Emergency (ER) | payer MEDICARE, OTHER ==
[2018-04-07 13:59] VITALS: TEMP 98.6
--- NOTE | 2018-04-07 14:03 | ED ---
General Adult HPI - General Chief complaint: Shortness of Breath Stated complaint: MARINA Time Seen by Provider: 04/07/18 13:47 Source: patient, EMS, RN notes reviewed Mode of arrival: EMS Limitations: no limitations - History of Present Illness Initial comments: This a 52-year-old female presents emergency Department complaining of difficulty breathing. When EMS arrived patient stated that she was short of breath and had sharp chest pain that lasts a few seconds. Patient states the chest pain went away quickly they did give her a breathing treatment and she is now in the emergency department stating that she feels absolutely fine and has no chest pain and is not having any difficulty breathing. The guardian was called at this time the guardian said it was okay to let her go home [facility] to [facility]. Patient did not want us to draw any blood or do any further workup and she was in no distress and had no complaints at this time. Again her chest patient told me lasted 2-3 seconds and it was sharp in nature at the time. - Related Data Home Medications Medication Instructions Recorded Confirmed Ergocalciferol [Vitamin D2 50,000 unit PO Q14D 09/19/17 03/29/18 (DRISDOL)] fluPHENAZine DECANOATE [Prolixin 50 mg IM Q7D 12/14/17 03/29/18 Decanoate] Ipratropium-Albuterol Nebulize 3 ml INHALATION RT-QID PRN 02/07/18 03/29/18 [Duoneb 0.5 mg-3 mg/3 ml Soln] Nystatin 100,000 Unit/gm Powd 1 applic TOPICAL BID 02/07/18 03/29/18 [Mycostatin Powder] Benzocaine/Menthol Lozeng [Cepacol 1 lozenge MUCOUS MEM Q4HR PRN 03/29/18 lozenge] Vortioxetine Hydrobromide 10 mg PO HS@1700 03/29/18 03/29/18 [Trintellix] Previous Rx's Medication Instructions Recorded Carvedilol [Coreg*] 12.5 mg PO BID-W/MEALS #60 tab 03/30/18 Doxycycline Monohydrate 100 mg PO DAILY #5 capsule 03/30/18 [Vibramycin] Losartan [Cozaar] 50 mg PO DAILY #30 tab 03/30/18 cloNIDine HCL [Catapres] 0.2 mg PO TID #90 tablet 03/30/18 predniSONE 40 mg PO DAILY #10 tab 03/30/18 Allergies Allergy/AdvReac Type Severity Reaction Status Date / Time diphenhydramine Allergy Itching Verified 03/31/18 19:33 [From Benadryl] Iodinated Contrast- Oral and Allergy Rash/Hives Verified 03/31/18 19:33 IV Dye latex Allergy Rash/Hives Verified 03/31/18 19:33 Penicillins Allergy Rash/Hives Verified 03/31/18 19:33 propoxyphene Allergy Unknown Verified 03/31/18 19:33 Quinolones Allergy Rash/Hives Verified 03/31/18 19:33 Sulfa (Sulfonamide Allergy Rash/Hives Verified 03/31/18 19:33 Antibiotics) Review of Systems ROS Statement: Those systems with pertinent positive or pertinent negative responses have been documented in the HPI. ROS Other: All systems not noted in ROS Statement are negative. Past Medical History Past Medical History: Chest Pain / Angina, Hypertension, Respiratory Disorder, Sleep Apnea/CPAP/BIPAP Additional Past Medical History / Comment(s): head injury in the past, cyst on right kidney History of Any Multi-Drug Resistant Organisms: None Reported Past Surgical History: Section, Heart Catheterization, Uterine Ablation Additional Past Surgical History / Comment(s): eye surgery, lithotripsy, OVARIAN CYST REMOVED RIGHT SIDE Past Anesthesia/Blood Transfusion Reactions: No Reported Reaction Past Psychological History: Anxiety, Bipolar, Depression, Schizophrenia Smoking Status: Current every day smoker Past Alcohol Use History: None Reported Past Drug Use History: None Reported - Past Family History Mother Family Medical History: Cancer Father Family Medical History: Unable to Obtain General Exam - General Exam Comments Initial Comments: GENERAL: Patient is well-developed and well-nourished. Patient is nontoxic and well- hydrated and is in no acute distress. ENT: Neck is soft and supple. No significant lymphadenopathy is noted. Oropharynx is clear. Moist mucous membranes. Neck has full range of motion without eliciting any pain EYES: The sclera were anicteric and conjunctiva were pink and moist. Extraocular movements were intact and pupils were equal round and reactive to light. Eyelids were unremarkable. PULMONARY: Unlabored respirations. Good breath sounds bilaterally. No audible rales rhonchi or wheezing was noted. CARDIOVASCULAR: There is a regular rate and rhythm without any murmurs gallops or rubs. ABDOMEN: Soft and nontender with normal bowel sounds. No palpable organomegaly was noted. There is no palpable pulsatile mass. SKIN: Skin is clear with no lesions or rashes and otherwise unremarkable. NEUROLOGIC: Patient is alert and oriented x3. Cranial nerves II through XII are grossly intact. Motor and sensory are also intact. Normal speech, volume and content. Symmetrical smile. MUSCULOSKELETAL: Normal extremities with adequate strength and full range of motion. No lower extremity swelling or edema. No calf tenderness. LYMPHATICS: No significant lymphadenopathy is noted PSYCHIATRIC: Normal psychiatric evaluation. Limitations: no limitations Course Vital Signs 04/07/18 13:49 Temperature 98.6 F Pulse Rate 80 Respiratory 18 Rate Blood Pressure 133/74 O2 Sat by Pulse 96 Oximetry Medical Decision Making - Medical Decision Making patient's EKG shows normal sinus rhythm at 81 bpm HI interval is 182 QRS is 92 QT interval 46 QTC is 471. Patient's EKG shows no ST segment elevation or depression there are no abnormalities when compared to an old EKG. I spoke with the patient a second time and she continued to insist she is not having any symptoms and she did not want have any further workup. After the nurse talked to the guardian tachycardia stated that if she didn't want anything done and she did not appear to be in any distress we could send the patient home.patient had no wheezing or shortness of no respiratory distress Disposition Clinical Impression: Shortness of breath Disposition: HOME SELF-CARE Instructions: Dyspnea (ED) Is patient prescribed a controlled substance at d/c from ED?: No Referrals: [facility] [Primary Care Provider] - 1-2 days Time of Disposition: 14:03
[2018-04-07 14:18] VITALS: BP 132/78; PULSE 81; RESP 16
== END 2018-04-07 14:16 | disposition home or self-care (01) ==
LOC: EC 13:47
DX: R06.02 Shortness of breath (principal); R07.9 Chest pain, unspecified; G47.30 Sleep apnea, unspecified; Z99.89 Dependence on other enabling machines and devices; F31.9 Bipolar disorder, unspecified; F20.9 Schizophrenia, unspecified; F17.200 Nicotine dependence, unspecified, uncomplicated; Z79.899 Other long term (current) drug therapy; Z88.0 Allergy status to penicillin; Z88.1 Allergy status to other antibiotic agents; Z88.2 Allergy status to sulfonamides; Z88.8 Allergy status to other drugs, medicaments and biological substances; Z91.040 Latex allergy status; Z91.041 Radiographic dye allergy status
CPT/HCPCS: 93005; 99285

== ENCOUNTER 2018-04-27 14:16 | Emergency (ER) | payer MEDICARE, OTHER ==
[2018-04-27 14:41] VITALS: BP 134/82; PULSE 69; RESP 18; TEMP 98.2
--- NOTE | 2018-04-27 15:04 | ED ---
General Adult HPI - General Chief complaint: Syncope Stated complaint: Syncope Time Seen by Provider: 04/27/18 14:52 Source: patient Mode of arrival: EMS - History of Present Illness Initial comments: This is a 52-year-old female to the ER for evaluation. Patient presents for evaluation regarding syncopal event. Patient states she's been up today with her medications taking medications as appropriate. She denies a chest pain no significant shortness of breath. No feelings of lightheadedness dizziness or headache at this time. No abdominal pain. No recent change in medications. No nausea vomiting or did diarrhea. - Related Data Home Medications Medication Instructions Recorded Confirmed Ergocalciferol [Vitamin D2 50,000 unit PO Q14D 09/19/17 04/27/18 (DRISDOL)] Vortioxetine Hydrobromide 10 mg PO HS@1700 03/29/18 04/27/18 [Trintellix] Hydrochlorothiazide [Hydrodiuril] 50 mg PO DAILY 04/07/18 04/27/18 Ibuprofen [Motrin] 600 mg PO Q8H PRN 04/07/18 04/27/18 Losartan [Cozaar] 50 mg PO DAILY 04/07/18 04/27/18 Magnesium Oxide [Mag-Ox] 400 mg PO DAILY 04/27/18 04/27/18 Potassium Chloride ER [K-Dur 20] 20 meq PO DAILY 04/27/18 04/27/18 Sodium Chloride Tab 1 gm PO DAILY 04/27/18 04/27/18 fluPHENAZine DECANOATE [Prolixin 50 mg IM Q7D 04/27/18 04/27/18 Decanoate] Previous Rx's Medication Instructions Recorded Carvedilol [Coreg*] 12.5 mg PO BID-W/MEALS #60 tab 03/30/18 cloNIDine HCL [Catapres] 0.2 mg PO TID #90 tablet 03/30/18 Allergies Allergy/AdvReac Type Severity Reaction Status Date / Time diphenhydramine Allergy Itching Verified 04/27/18 15:00 [From Benadryl] Iodinated Contrast- Oral and Allergy Rash/Hives Verified 04/27/18 15:00 IV Dye latex Allergy Rash/Hives Verified 04/27/18 15:00 Penicillins Allergy Rash/Hives Verified 04/27/18 15:00 propoxyphene Allergy Unknown Verified 04/27/18 15:00 Quinolones Allergy Rash/Hives Verified 04/27/18 15:00 Sulfa (Sulfonamide Allergy Rash/Hives Verified 04/27/18 15:00 Antibiotics) Review of Systems ROS Statement: Those systems with pertinent positive or pertinent negative responses have been documented in the HPI. ROS Other: All systems not noted in ROS Statement are negative. Past Medical History Past Medical History: Chest Pain / Angina, Hypertension, Respiratory Disorder, Sleep Apnea/CPAP/BIPAP Additional Past Medical History / Comment(s): head injury in the past, cyst on right kidney History of Any Multi-Drug Resistant Organisms: None Reported Past Surgical History: Section, Heart Catheterization, Uterine Ablation Additional Past Surgical History / Comment(s): eye surgery, lithotripsy, OVARIAN CYST REMOVED RIGHT SIDE Past Anesthesia/Blood Transfusion Reactions: No Reported Reaction Past Psychological History: Anxiety, Bipolar, Depression, Schizophrenia Smoking Status: Current every day smoker Past Alcohol Use History: None Reported Past Drug Use History: None Reported - Past Family History Mother Family Medical History: Cancer Father Family Medical History: Unable to Obtain General Exam General appearance: alert, in no apparent distress Head exam: Present: atraumatic, normocephalic, normal inspection Eye exam: Present: normal appearance, PERRL, EOMI. Absent: scleral icterus, conjunctival injection, periorbital swelling ENT exam: Present: normal exam, mucous membranes moist Neck exam: Present: normal inspection. Absent: tenderness, meningismus, lymphadenopathy Respiratory exam: Present: normal lung sounds bilaterally. Absent: respiratory distress, wheezes, rales, rhonchi, stridor Cardiovascular Exam: Present: regular rate, normal rhythm, normal heart sounds. Absent: systolic murmur, diastolic murmur, rubs, gallop, clicks GI/Abdominal exam: Present: soft, normal bowel sounds. Absent: distended, tenderness, guarding, rebound, rigid Extremities exam: Present: normal inspection, full ROM, normal capillary refill. Absent: tenderness, pedal edema, joint swelling, calf tenderness Back exam: Present: normal inspection Neurological exam: Present: alert, oriented X3, CN II-XII intact Psychiatric exam: Present: normal affect, normal mood Skin exam: Present: warm, dry, intact, normal color. Absent: rash Course Vital Signs 04/27/18 14:30 Temperature 98.2 F Pulse Rate 69 Respiratory 18 Rate Blood Pressure 134/82 - Reevaluation(s) Reevaluation #1: 04/27/18 15:03 Patient is well-known to this facility and ER records are significantly reviewed EKG Findings - EKG Comments: EKG Findings:: EKG shows sinus rhythm rate of 70, [place] 180, QRS 90, QTc 460 Disposition Clinical Impression: Vasovagal syncope Disposition: HOME SELF-CARE Condition: Good Instructions: Syncope (ED) Is patient prescribed a controlled substance at d/c from ED?: No Referrals: [facility] [Primary Care Provider] - 1-2 days
== END 2018-04-27 15:45 | disposition home or self-care (01) ==
LOC: EC 14:16
DX: R55 Syncope and collapse (principal); I10 Essential (primary) hypertension; G47.30 Sleep apnea, unspecified; Z99.89 Dependence on other enabling machines and devices; F31.9 Bipolar disorder, unspecified; F20.9 Schizophrenia, unspecified; F41.9 Anxiety disorder, unspecified; F17.200 Nicotine dependence, unspecified, uncomplicated; Z79.899 Other long term (current) drug therapy; Z88.2 Allergy status to sulfonamides; Z88.0 Allergy status to penicillin; Z91.041 Radiographic dye allergy status; Z91.040 Latex allergy status; Z88.8 Allergy status to other drugs, medicaments and biological substances; Z88.1 Allergy status to other antibiotic agents; Z95.818 Presence of other cardiac implants and grafts
CPT/HCPCS: 93005; 99284

== ENCOUNTER 2018-06-01 10:49 | Emergency (ER) | payer MEDICARE, OTHER ==
[2018-06-01] MEDS ORDERED: SODIUM CHLORIDE 0.9% 1,000 ML IV STA (11:10)
--- NOTE | 2018-06-01 11:13 | ED ---
General Adult HPI - General Chief complaint: Abdominal Pain Stated complaint: abd pain, SOB Time Seen by Provider: 06/01/18 10:58 Source: patient, RN notes reviewed, old records reviewed Mode of arrival: wheelchair Limitations: no limitations - History of Present Illness Initial comments: Patient's a 52-year-old female presenting to the emergency room today with a chief complaint of right lower quadrant pain. Patient states that it started last night approximately midnight. Patient does admit to pain it's worse when she releases pressure on the right lower quadrant. Patient denies any other complaints or symptoms. Patient denies any recent fever, chills, shortness of breath, chest pain, back pain, nausea or vomiting, headaches or visual changes, or any other complaints. - Related Data Home Medications Medication Instructions Recorded Confirmed Ergocalciferol [Vitamin D2 50,000 unit PO Q14D 09/19/17 06/01/18 (DRISDOL)] Vortioxetine Hydrobromide 10 mg PO HS@1700 03/29/18 06/01/18 [Trintellix] Hydrochlorothiazide [Hydrodiuril] 50 mg PO DAILY 04/07/18 06/01/18 Ibuprofen [Motrin] 600 mg PO Q8H PRN 04/07/18 06/01/18 Losartan [Cozaar] 50 mg PO DAILY 04/07/18 06/01/18 Magnesium Oxide [Mag-Ox] 400 mg PO DAILY 04/27/18 06/01/18 Potassium Chloride ER [K-Dur 20] 20 meq PO DAILY 04/27/18 06/01/18 Sodium Chloride Tab 1 gm PO DAILY 04/27/18 06/01/18 fluPHENAZine DECANOATE [Prolixin 50 mg IM Q7D 04/27/18 06/01/18 Decanoate] Previous Rx's Medication Instructions Recorded Carvedilol [Coreg*] 12.5 mg PO BID-W/MEALS #60 tab 03/30/18 cloNIDine HCL [Catapres] 0.2 mg PO TID #90 tablet 03/30/18 Allergies Allergy/AdvReac Type Severity Reaction Status Date / Time diphenhydramine Allergy Itching Verified 06/01/18 10:59 [From Benadryl] Iodinated Contrast- Oral and Allergy Rash/Hives Verified 06/01/18 10:59 IV Dye latex Allergy Rash/Hives Verified 06/01/18 10:59 Penicillins Allergy Rash/Hives Verified 06/01/18 10:59 propoxyphene Allergy Unknown Verified 06/01/18 10:59 Quinolones Allergy Rash/Hives Verified 06/01/18 10:59 Sulfa (Sulfonamide Allergy Rash/Hives Verified 06/01/18 10:59 Antibiotics) Review of Systems ROS Statement: Those systems with pertinent positive or pertinent negative responses have been documented in the HPI. ROS Other: All systems not noted in ROS Statement are negative. Past Medical History Past Medical History: Chest Pain / Angina, Hypertension, Respiratory Disorder, Sleep Apnea/CPAP/BIPAP Additional Past Medical History / Comment(s): head injury in the past, cyst on right kidney History of Any Multi-Drug Resistant Organisms: None Reported Past Surgical History: Section, Heart Catheterization, Uterine Ablation Additional Past Surgical History / Comment(s): eye surgery, lithotripsy, OVARIAN CYST REMOVED RIGHT SIDE Past Anesthesia/Blood Transfusion Reactions: No Reported Reaction Past Psychological History: Anxiety, Bipolar, Depression, Schizophrenia Smoking Status: Current every day smoker Past Alcohol Use History: None Reported Past Drug Use History: None Reported - Past Family History Mother Family Medical History: Cancer Father Family Medical History: Unable to Obtain General Exam - General Exam Comments Initial Comments: General: The patient is awake and alert, in no distress, and does not appear acutely ill. Eye: extra-ocular movements are intact. No nystagmus. There is normal conjunctiva bilaterally. No signs of icterus. Ears, nose, mouth and throat: There are moist mucous membranes and no oral lesions. Neck: The neck is supple, there is no tenderness or JVD. Cardiovascular: There is a regular rate and rhythm. No murmur, rub or gallop is appreciated. Respiratory: Lungs are clear to auscultation, respirations are non-labored, breath sounds are equal. No wheezes, stridor, rales, or rhonchi. Gastrointestinal: Abdomen soft on palpation. Patient does have tenderness right lower quadrant. No rebound, guarding or CVA tenderness. Musculoskeletal: Normal ROM, no tenderness. Sensation intact. Neurological: A&O x 3. CN II-XII intact, There are no obvious motor or sensory deficits. Coordination appears grossly intact. Speech is normal. Skin: Skin is warm and dry and no rashes or lesions are noted. Psychiatric: Cooperative, appropriate mood & affect, normal judgment. Limitations: no limitations Course Vital Signs 06/01/18 10:53 Temperature 98.2 F Pulse Rate 77 Respiratory 18 Rate Blood Pressure 125/90 O2 Sat by Pulse 96 Oximetry Medical Decision Making - Medical Decision Making Patient reexamined at this time shows no signs of distress. She is resting comfortable. She is requesting to leave at this time. Patient states that she passed flatulence a few times here in the emergency room and is feeling much better. Denies any abdominal pain at this time. Patient's labs have been reviewed. All further labs have returned. No signs of infection. Negative CRP and negative lactic acid. No elevated white count. Vitals are stable. Patient will be discharged home. She is advised following up with family doctor as needed returning for any other concerns. - Lab Data Result diagrams: 06/01/18 11:35 06/01/18 11:35 Lab Results 06/01/18 06/01/18 06/01/18 Range/Units 11:35 11:35 11:35 WBC 9.5 (3.8-10.6) k/uL RBC 5.05 (3.80-5.40) m/uL Hgb 16.5 H (11.4-16.0) gm/dL Hct 48.5 H (34.0-46.0) % MCV 96.0 (80.0-100.0) fL MCH 32.7 (25.0-35.0) pg MCHC 34.1 (31.0-37.0) g/dL RDW 12.7 (11.5-15.5) % Plt Count 387 (150-450) k/uL Neutrophils % 55 % Lymphocytes % 33 % Monocytes % 7 % Eosinophils % 2 % Basophils % 1 % Neutrophils # 5.2 (1.3-7.7) k/uL Lymphocytes # 3.1 (1.0-4.8) k/uL Monocytes # 0.7 (0-1.0) k/uL Eosinophils # 0.2 (0-0.7) k/uL Basophils # 0.1 (0-0.2) k/uL Sodium 132 L (137-145) mmol/L Potassium 3.9 (3.5-5.1) mmol/L Chloride 95 L (98-107) mmol/L Carbon Dioxide 31 H (22-30) mmol/L Anion Gap 6 mmol/L BUN 15 (7-17) mg/dL Creatinine 0.60 (0.52-1.04) mg/dL Est GFR (CKD-EPI)AfAm >90 (>60 ml/min/1.73 sqM) Est GFR (CKD-EPI)NonAf >90 (>60 ml/min/1.73 sqM) Glucose 69 L (74-99) mg/dL Plasma Lactic Acid Armaan 1.3 (0.7-2.0) mmol/L Calcium 9.7 (8.4-10.2) mg/dL Total Bilirubin 0.4 (0.2-1.3) mg/dL AST 19 (14-36) U/L ALT 24 (9-52) U/L Alkaline Phosphatase 58 (38-126) U/L C-Reactive Protein <5.0 (<10.0) mg/L Total Protein 7.1 (6.3-8.2) g/dL Albumin 4.0 (3.5-5.0) g/dL Urine Color Urine Appearance (Clear) Urine pH (5.0-8.0) Ur Specific [place] (1.001-1.035) Urine Protein (Negative) Urine Glucose (UA) (Negative) Urine Ketones (Negative) Urine Blood (Negative) Urine Nitrite (Negative) Urine Bilirubin (Negative) Urine Urobilinogen (<2.0) mg/dL Ur Leukocyte Esterase (Negative) Urine HCG, Qual (Not Detectd) 06/01/18 06/01/18 Range/Units 12:35 12:35 WBC (3.8-10.6) k/uL RBC (3.80-5.40) m/uL Hgb (11.4-16.0) gm/dL Hct (34.0-46.0) % MCV (80.0-100.0) fL MCH (25.0-35.0) pg MCHC (31.0-37.0) g/dL RDW (11.5-15.5) % Plt Count (150-450) k/uL Neutrophils % % Lymphocytes % % Monocytes % % Eosinophils % % Basophils % % Neutrophils # (1.3-7.7) k/uL Lymphocytes # (1.0-4.8) k/uL Monocytes # (0-1.0) k/uL Eosinophils # (0-0.7) k/uL Basophils # (0-0.2) k/uL Sodium (137-145) mmol/L Potassium (3.5-5.1) mmol/L Chloride (98-107) mmol/L Carbon Dioxide (22-30) mmol/L Anion Gap mmol/L BUN (7-17) mg/dL Creatinine (0.52-1.04) mg/dL Est GFR (CKD-EPI)AfAm (>60 ml/min/1.73 sqM) Est GFR (CKD-EPI)NonAf (>60 ml/min/1.73 sqM) Glucose (74-99) mg/dL Plasma Lactic Acid Armaan (0.7-2.0) mmol/L Calcium (8.4-10.2) mg/dL Total Bilirubin (0.2-1.3) mg/dL AST (14-36) U/L ALT (9-52) U/L Alkaline Phosphatase (38-126) U/L C-Reactive Protein (<10.0) mg/L Total Protein (6.3-8.2) g/dL Albumin (3.5-5.0) g/dL Urine Color Colorless Urine Appearance Clear (Clear) Urine pH 5.5 (5.0-8.0) Ur Specific [place] 1.004 (1.001-1.035) Urine Protein Negative (Negative) Urine Glucose (UA) Negative (Negative) Urine Ketones Negative (Negative) Urine Blood Negative (Negative) Urine Nitrite Negative (Negative) Urine Bilirubin Negative (Negative) Urine Urobilinogen <2.0 (<2.0) mg/dL Ur Leukocyte Esterase Negative (Negative) Urine HCG, Qual Not Detected (Not Detectd) Disposition Clinical Impression: Abdominal pain Disposition: HOME SELF-CARE Condition: Good Instructions: Abdominal Pain (ED) Additional Instructions: Please follow-up with family doctor in the next 2 days of symptoms have not improved. Please return to emergency room if the symptoms increase or worsen or for any other concerns. Is patient prescribed a controlled substance at d/c from ED?: No Referrals: [facility] [Primary Care Provider] - 1-2 days Time of Disposition: 13:05
[2018-06-01 11:44] LABS: Basophils # (A) 0.1 k/uL (0-0.2); Basophils % (A) 1 %; Eosinophils # (A) 0.2 k/uL (0-0.7); Eosinophils % (A) 2 %; HCT 48.5 % (34.0-46.0); HGB 16.5 gm/dL (11.4-16.0); Lymphocytes # (A) 3.1 k/uL (1.0-4.8); Lymphocytes % (A) 33 %; MCH 32.7 pg (25.0-35.0); MCHC 34.1 g/dL (31.0-37.0); Mean Platelet Volume 7.2; Monocytes # (A) 0.7 k/uL (0-1.0); Monocytes % (A) 7 %; Neutrophils # (A) 5.2 k/uL (1.3-7.7); Neutrophils % (A) 55 %; Platelet Count 387 k/uL (150-450); RBC 5.05 m/uL (3.80-5.40); RDW 12.7 % (11.5-15.5); WBC 9.5 k/uL (3.8-10.6)
[2018-06-01 12:10] LABS: ALT 24 U/L (9-52); AST 19 U/L (14-36); Alkaline Phosphatase 58 U/L (38-126); Anion Gap 6 mmol/L; Blood Urea Nitrogen 15 mg/dL (7-17); C Reactive Protein <5.0 mg/L (<10.0); Calcium 9.7 mg/dL (8.4-10.2); Carbon Dioxide 31 mmol/L (22-30); Chloride 95 mmol/L (98-107); Glucose 69 mg/dL (74-99); Potassium 3.9 mmol/L (3.5-5.1); Sodium 132 mmol/L (137-145); Total Bilirubin 0.4 mg/dL (0.2-1.3); Total Protein 7.1 g/dL (6.3-8.2)
[2018-06-01 12:49] LABS: Appearance,Urine Clear (Clear); Bilirubin,Urine Negative (Negative); Blood,Urine Negative (Negative); Color,Urine Colorless; Glucose,Urine (UA) Negative (Negative); Ketones,Urine Negative (Negative); Leukocyte Esterase,Urine Negative (Negative); Nitrite,Urine Negative (Negative); PH, Urine 5.5 (5.0-8.0); Protein,Urine Negative (Negative); Specific Gravity,Urine 1.004 (1.001-1.035); Urobilinogen,Urine <2.0 mg/dL (<2.0)
[2018-06-01 13:25] VITALS: BP 179/100; PULSE 69; RESP 16; TEMP 98.6
== END 2018-06-01 17:30 | disposition home or self-care (01) ==
LOC: EC 10:49
DX: R10.31 Right lower quadrant pain (principal); R14.3 Flatulence; R06.02 Shortness of breath; F31.9 Bipolar disorder, unspecified; G47.30 Sleep apnea, unspecified; I10 Essential (primary) hypertension; F17.200 Nicotine dependence, unspecified, uncomplicated; Z32.02 Encounter for pregnancy test, result negative; Z95.5 Presence of coronary angioplasty implant and graft; Z79.899 Other long term (current) drug therapy; Z88.8 Allergy status to other drugs, medicaments and biological substances; Z91.041 Radiographic dye allergy status; Z91.040 Latex allergy status; Z88.0 Allergy status to penicillin; Z88.2 Allergy status to sulfonamides; Z88.1 Allergy status to other antibiotic agents
CPT/HCPCS: 36415; 80053; 81003; 81025; 83605; 85025; 86140; 96360; 96361; 99284

== ENCOUNTER 2018-07-07 10:26 | Emergency (ER) | payer MEDICARE, OTHER ==
[2018-07-07 10:30] VITALS: BP 164/89; PULSE 74; RESP 20; TEMP 97.8
--- NOTE | 2018-07-07 10:46 | ED ---
General Adult HPI - General Chief complaint: Recheck/Abnormal Lab/Rx Stated complaint: High blood pressure/side pain Time Seen by Provider: 07/07/18 10:33 Source: patient, RN notes reviewed Mode of arrival: wheelchair Limitations: no limitations - History of Present Illness Initial comments: Patient is a pleasant 52-year-old female presenting to the emergency Department with complaints of high blood pressure. Patient did take her clonidine this morning. Patient feels like she is more clonidine. Patient admits to always feeling like she needs extra blood pressure medicine. Patient states she likes are medication here than the stuff she is given outside of the hospital. Patient also admits to having a cough for the past couple days. Patient requests a pop. Patient states she did have abdominal discomfort however this has resolved. - Related Data Home Medications Medication Instructions Recorded Confirmed Ergocalciferol [Vitamin D2 50,000 unit PO Q14D 09/19/17 06/01/18 (DRISDOL)] Vortioxetine Hydrobromide 10 mg PO HS@1700 03/29/18 06/01/18 [Trintellix] Hydrochlorothiazide [Hydrodiuril] 50 mg PO DAILY 04/07/18 06/01/18 Ibuprofen [Motrin] 600 mg PO Q8H PRN 04/07/18 06/01/18 Losartan [Cozaar] 50 mg PO DAILY 04/07/18 06/01/18 Magnesium Oxide [Mag-Ox] 400 mg PO DAILY 04/27/18 06/01/18 Potassium Chloride ER [K-Dur 20] 20 meq PO DAILY 04/27/18 06/01/18 Sodium Chloride Tab 1 gm PO DAILY 04/27/18 06/01/18 fluPHENAZine DECANOATE [Prolixin 50 mg IM Q7D 04/27/18 06/01/18 Decanoate] Previous Rx's Medication Instructions Recorded Carvedilol [Coreg*] 12.5 mg PO BID-W/MEALS #60 tab 03/30/18 cloNIDine HCL [Catapres] 0.2 mg PO TID #90 tablet 03/30/18 Allergies Allergy/AdvReac Type Severity Reaction Status Date / Time diphenhydramine Allergy Itching Verified 07/07/18 10:30 [From Benadryl] Iodinated Contrast- Oral and Allergy Rash/Hives Verified 07/07/18 10:30 IV Dye latex Allergy Rash/Hives Verified 07/07/18 10:30 Penicillins Allergy Rash/Hives Verified 07/07/18 10:30 propoxyphene Allergy Unknown Verified 07/07/18 10:30 Quinolones Allergy Rash/Hives Verified 07/07/18 10:30 Sulfa (Sulfonamide Allergy Rash/Hives Verified 07/07/18 10:30 Antibiotics) Review of Systems ROS Statement: Those systems with pertinent positive or pertinent negative responses have been documented in the HPI. ROS Other: All systems not noted in ROS Statement are negative. Constitutional: Denies: fever Eyes: Denies: eye pain ENT: Denies: ear pain Respiratory: Reports: cough Cardiovascular: Denies: palpitations Endocrine: Denies: fatigue Gastrointestinal: Reports: abdominal pain (Resolved) Genitourinary: Denies: dysuria Musculoskeletal: Denies: back pain Skin: Denies: rash Past Medical History Past Medical History: Chest Pain / Angina, Hypertension, Respiratory Disorder, Sleep Apnea/CPAP/BIPAP Additional Past Medical History / Comment(s): head injury in the past, cyst on right kidney History of Any Multi-Drug Resistant Organisms: None Reported Past Surgical History: Section, Heart Catheterization, Uterine Ablation Additional Past Surgical History / Comment(s): eye surgery, lithotripsy, OVARIAN CYST REMOVED RIGHT SIDE Past Anesthesia/Blood Transfusion Reactions: No Reported Reaction Past Psychological History: Anxiety, Bipolar, Depression, Schizophrenia Smoking Status: Current every day smoker Past Alcohol Use History: None Reported Past Drug Use History: None Reported - Past Family History Mother Family Medical History: Cancer Father Family Medical History: Unable to Obtain General Exam Limitations: no limitations General appearance: alert, in no apparent distress Head exam: Present: atraumatic Eye exam: Present: normal appearance Neck exam: Present: normal inspection Respiratory exam: Present: normal lung sounds bilaterally Cardiovascular Exam: Present: regular rate, normal rhythm GI/Abdominal exam: Present: soft. Absent: tenderness Extremities exam: Present: normal inspection. Absent: pedal edema, calf tenderness Neurological exam: Present: alert Psychiatric exam: Present: flat affect Skin exam: Present: normal color Course Vital Signs 07/07/18 10:28 Temperature 97.8 F Pulse Rate 74 Respiratory 20 Rate Blood Pressure 164/89 O2 Sat by Pulse 96 Oximetry Medical Decision Making - Medical Decision Making Patient updated. Patient requests discharge. - Radiology Data Radiology results: image reviewed (Chest x-ray shows mild cardiac megaly.) Disposition Clinical Impression: Cough Disposition: HOME SELF-CARE Condition: Stable Instructions: Acute Cough (ED) Additional Instructions: Please do follow-up to primary care physician in the next day or 2 for recheck. Return for fevers, difficulty breathing, return of abdominal discomfort, worsening symptoms or other concerns. Is patient prescribed a controlled substance at d/c from ED?: No Referrals: [facility] [Primary Care Provider] - 1-2 days Time of Disposition: 11:10
--- NOTE | 2018-07-07 11:02 | XR ---
EXAMINATION TYPE: XR chest 2V DATE OF EXAM: 07/07/2018 HISTORY: cough. REFERENCE: Previous study dated 03/30/2018. FINDINGS: The lungs are clear. Pleural spaces are clear. The heart is mildly enlarged. IMPRESSION: MILD CARDIOMEGALY.
== END 2018-07-07 11:17 | disposition home or self-care (01) ==
LOC: EC 10:26
DX: R05 Cough (principal); I10 Essential (primary) hypertension; G47.30 Sleep apnea, unspecified; F31.9 Bipolar disorder, unspecified; F17.200 Nicotine dependence, unspecified, uncomplicated; Z79.899 Other long term (current) drug therapy; Z88.0 Allergy status to penicillin; Z88.1 Allergy status to other antibiotic agents; Z88.2 Allergy status to sulfonamides; Z88.8 Allergy status to other drugs, medicaments and biological substances; Z91.040 Latex allergy status; Z91.041 Radiographic dye allergy status; Z95.5 Presence of coronary angioplasty implant and graft
CPT/HCPCS: 71046; 99283

== ENCOUNTER 2018-08-03 10:55 | Emergency (ER) | payer MEDICARE, OTHER ==
--- NOTE | 2018-08-03 12:47 | XR ---
EXAMINATION TYPE: XR chest 2V DATE OF EXAM: 08/03/2018 COMPARISON: 07/07/2018 INDICATION: Cough, pain TECHNIQUE: Frontal and lateral views of the chest are obtained. FINDINGS: The heart size is normal. The pulmonary vasculature is prominent. The lungs are clear. IMPRESSION: 1. Correlate for volume overload
--- NOTE | 2018-08-03 13:28 | ED ---
SOB HPI - General Chief Complaint: Shortness of Breath Stated Complaint: poss pneumonia Time Seen by Provider: 08/03/18 12:15 Source: patient, RN notes reviewed Mode of arrival: ambulatory Limitations: no limitations - History of Present Illness Initial Comments: 52-year-old female presents emergency department for cough congestion. She states been coughing for 3 weeks. Denies any chest pain. Patient states that she saw PCP sent here to 4 Rule out pneumonia. Patient had no fever no chills denies any other complaints. - Related Data Home Medications Medication Instructions Recorded Confirmed Ergocalciferol [Vitamin D2 50,000 unit PO Q14D 09/19/17 08/03/18 (DRISDOL)] Vortioxetine Hydrobromide 10 mg PO HS@1700 03/29/18 08/03/18 [Trintellix] Hydrochlorothiazide [Hydrodiuril] 50 mg PO DAILY 04/07/18 08/03/18 Losartan [Cozaar] 50 mg PO DAILY 04/07/18 08/03/18 Ergocalciferol (Vitamin D2) 50,000 unit PO Q7DAYS 08/03/18 08/03/18 [Drisdol] Fluticasone/Umeclidin/Vilanter 1 puff INHALATION RT-DAILY 08/03/18 08/03/18 [Ana Olivera 100-62.5-25] Magnesium Oxide [Mag-Ox] 400 mg PO DAILY 08/03/18 08/03/18 Nystatin [Nystop] 1 applic TOPICAL BID 08/03/18 08/03/18 Potassium Chloride ER [K-Dur 20] 20 meq PO MOWEFR 08/03/18 08/03/18 Trihexyphenidyl HCl 5 mg PO BID 08/03/18 08/03/18 Previous Rx's Medication Instructions Recorded Carvedilol [Coreg*] 12.5 mg PO BID-W/MEALS #60 tab 03/30/18 cloNIDine HCL [Catapres] 0.2 mg PO TID #90 tablet 03/30/18 Furosemide [Lasix] 20 mg PO DAILY #3 tab 08/03/18 Allergies Allergy/AdvReac Type Severity Reaction Status Date / Time diphenhydramine Allergy Itching Verified 08/03/18 12:39 [From Benadryl] Iodinated Contrast- Oral and Allergy Rash/Hives Verified 08/03/18 12:39 IV Dye latex Allergy Rash/Hives Verified 08/03/18 12:39 Penicillins Allergy Rash/Hives Verified 08/03/18 12:39 propoxyphene Allergy Unknown Verified 08/03/18 12:39 Quinolones Allergy Rash/Hives Verified 08/03/18 12:39 Sulfa (Sulfonamide Allergy Rash/Hives Verified 08/03/18 12:39 Antibiotics) Review of Systems ROS Statement: Those systems with pertinent positive or pertinent negative responses have been documented in the HPI. ROS Other: All systems not noted in ROS Statement are negative. Past Medical History Past Medical History: Chest Pain / Angina, Hypertension, Respiratory Disorder, Sleep Apnea/CPAP/BIPAP Additional Past Medical History / Comment(s): head injury in the past, cyst on right kidney History of Any Multi-Drug Resistant Organisms: None Reported Past Surgical History: Section, Heart Catheterization, Uterine Ablation Additional Past Surgical History / Comment(s): eye surgery, lithotripsy, OVARIAN CYST REMOVED RIGHT SIDE Past Anesthesia/Blood Transfusion Reactions: No Reported Reaction Past Psychological History: Anxiety, Bipolar, Depression, Schizophrenia Smoking Status: Current every day smoker Past Alcohol Use History: None Reported Past Drug Use History: None Reported - Past Family History Mother Family Medical History: Cancer Father Family Medical History: Unable to Obtain General Exam Limitations: no limitations General appearance: alert, in no apparent distress Head exam: Present: atraumatic, normocephalic, normal inspection Eye exam: Present: normal appearance, PERRL, EOMI. Absent: scleral icterus, conjunctival injection, periorbital swelling ENT exam: Present: normal exam, mucous membranes moist Neck exam: Present: normal inspection, full ROM. Absent: tenderness, meningismus, lymphadenopathy Respiratory exam: Present: rales (Minimal). Absent: normal lung sounds bilaterally, respiratory distress, wheezes, rhonchi, stridor Cardiovascular Exam: Present: regular rate, normal rhythm, normal heart sounds. Absent: systolic murmur, diastolic murmur, rubs, gallop, clicks Course Vital Signs 08/03/18 11:43 Temperature 98.2 F Pulse Rate 81 Respiratory 18 Rate Blood Pressure 142/94 O2 Sat by Pulse 97 Oximetry Medical Decision Making - Medical Decision Making 52-year-old female presents for cough congestion. Patient has mild fluid overload though she is satting well in no respiratory distress no clinical signs of CHF. Patient we given 3 days of Lasix, counseling in detail greater than 3 minutes for smoking sensation. Return parameters were discussed. Close follow-up was discussed. Disposition Clinical Impression: Nicotine dependence, COPD (chronic obstructive pulmonary disease) Disposition: HOME SELF-CARE Condition: Stable Instructions: Chronic Cough (ED) Additional Instructions: Please return to the Emergency Department if symptoms worsen or any other concerns. Prescriptions: Furosemide [Lasix] 20 mg PO DAILY #3 tab Is patient prescribed a controlled substance at d/c from ED?: No Referrals: [facility] [Primary Care Provider] - 1-2 days
[2018-08-03] MEDS: IPRATROPIUM-ALBUTEROL 3 ML NEB INHALATION STA (13:50)
[2018-08-03] MEDS: FUROSEMIDE 40 MG TAB PO STA (14:16)
[2018-08-03 14:20] VITALS: BP 146/100; PULSE 76; RESP 18; TEMP 98
== END 2018-08-03 14:20 | disposition home or self-care (01) ==
LOC: EC 10:55
DX: J44.9 Chronic obstructive pulmonary disease, unspecified (principal); F17.200 Nicotine dependence, unspecified, uncomplicated; I10 Essential (primary) hypertension; G47.30 Sleep apnea, unspecified; Z99.89 Dependence on other enabling machines and devices; F31.9 Bipolar disorder, unspecified; F41.9 Anxiety disorder, unspecified; F20.9 Schizophrenia, unspecified; Z79.51 Long term (current) use of inhaled steroids; Z79.899 Other long term (current) drug therapy; Z88.0 Allergy status to penicillin; Z88.2 Allergy status to sulfonamides; Z88.1 Allergy status to other antibiotic agents; Z88.8 Allergy status to other drugs, medicaments and biological substances; Z91.040 Latex allergy status; Z91.041 Radiographic dye allergy status; Z95.818 Presence of other cardiac implants and grafts
CPT/HCPCS: 71046; 94640; 99285; 99406

== ENCOUNTER 2018-08-05 07:37 | Inpatient (IN) | payer MEDICARE, OTHER ==
[2018-08-05] MEDS ORDERED: ONDANSETRON 4 MG ODT STARTER PACK 2 TAB BTL PO STA (08:19)
--- NOTE | 2018-08-05 08:26 | ED ---
Nausea/Vomiting/Diarrhea HPI - General Chief complaint: Nausea/Vomiting/Diarrhea Stated complaint: vomiting,fever, shaky Time Seen by Provider: 08/05/18 08:06 Source: patient, RN notes reviewed, old records reviewed Mode of arrival: wheelchair Limitations: no limitations - History of Present Illness Initial comments: Patient is a 52-year-old female well-known to the emergency department today with chief complaint of nausea vomiting, chest pain, shortness of breath. Patient was seen in emergency for 2 days ago. The was diagnosed with fluid overload and was started on Lasix. She's been taking his medications per Patient states that she "wants to be admitted". Patient reports that she's had chills and shakiness. Patient states that she has had polyuria. - Related Data Home Medications Medication Instructions Recorded Confirmed Ergocalciferol [Vitamin D2 50,000 unit PO Q14D 09/19/17 08/03/18 (DRISDOL)] Vortioxetine Hydrobromide 10 mg PO HS@1700 03/29/18 08/03/18 [Trintellix] Hydrochlorothiazide [Hydrodiuril] 50 mg PO DAILY 04/07/18 08/03/18 Losartan [Cozaar] 50 mg PO DAILY 04/07/18 08/03/18 Ergocalciferol (Vitamin D2) 50,000 unit PO Q7DAYS 08/03/18 08/03/18 [Drisdol] Fluticasone/Umeclidin/Vilanter 1 puff INHALATION RT-DAILY 08/03/18 08/03/18 [Treleashvin Ellipta 100-62.5-25] Magnesium Oxide [Mag-Ox] 400 mg PO DAILY 08/03/18 08/03/18 Nystatin [Nystop] 1 applic TOPICAL BID 08/03/18 08/03/18 Potassium Chloride ER [K-Dur 20] 20 meq PO MOWEFR 08/03/18 08/03/18 Trihexyphenidyl HCl 5 mg PO BID 08/03/18 08/03/18 Previous Rx's Medication Instructions Recorded Carvedilol [Coreg*] 12.5 mg PO BID-W/MEALS #60 tab 03/30/18 cloNIDine HCL [Catapres] 0.2 mg PO TID #90 tablet 03/30/18 Furosemide [Lasix] 20 mg PO DAILY #3 tab 08/03/18 Allergies Allergy/AdvReac Type Severity Reaction Status Date / Time diphenhydramine Allergy Itching Verified 08/05/18 07:55 [From Benadryl] Iodinated Contrast- Oral and Allergy Rash/Hives Verified 08/05/18 07:55 IV Dye latex Allergy Rash/Hives Verified 08/05/18 07:55 Penicillins Allergy Rash/Hives Verified 08/05/18 07:55 propoxyphene Allergy Unknown Verified 08/05/18 07:55 Quinolones Allergy Rash/Hives Verified 08/05/18 07:55 Sulfa (Sulfonamide Allergy Rash/Hives Verified 08/05/18 07:55 Antibiotics) Review of Systems ROS Statement: Those systems with pertinent positive or pertinent negative responses have been documented in the HPI. ROS Other: All systems not noted in ROS Statement are negative. Past Medical History Past Medical History: Chest Pain / Angina, Hypertension, Respiratory Disorder, Sleep Apnea/CPAP/BIPAP Additional Past Medical History / Comment(s): head injury in the past, cyst on right kidney History of Any Multi-Drug Resistant Organisms: None Reported Past Surgical History: Section, Heart Catheterization, Uterine Ablation Additional Past Surgical History / Comment(s): eye surgery, lithotripsy, OVARIAN CYST REMOVED RIGHT SIDE Past Anesthesia/Blood Transfusion Reactions: No Reported Reaction Past Psychological History: Anxiety, Bipolar, Depression, Schizophrenia Smoking Status: Current every day smoker Past Alcohol Use History: None Reported Past Drug Use History: None Reported - Past Family History Mother Family Medical History: Cancer Father Family Medical History: Unable to Obtain General Exam - General Exam Comments Initial Comments: 52-year-old female. Alert and oriented. Patient appears in no acute distress. Limitations: no limitations General appearance: alert, in no apparent distress Head exam: Present: atraumatic, normocephalic, normal inspection Eye exam: Present: normal appearance, PERRL, EOMI. Absent: scleral icterus, conjunctival injection, periorbital swelling ENT exam: Present: normal exam, mucous membranes moist Neck exam: Present: normal inspection. Absent: tenderness, meningismus, lymphadenopathy Respiratory exam: Present: rales (Slight rales). Absent: normal lung sounds bilaterally, respiratory distress, wheezes, rhonchi, stridor Cardiovascular Exam: Present: regular rate, normal rhythm, normal heart sounds. Absent: systolic murmur, diastolic murmur, rubs, gallop, clicks GI/Abdominal exam: Present: soft, normal bowel sounds. Absent: distended, tenderness, guarding, rebound, rigid Back exam: Present: normal inspection Neurological exam: Present: alert, oriented X3, CN II-XII intact Psychiatric exam: Present: normal affect, normal mood Skin exam: Present: warm, dry, intact, normal color. Absent: rash Course Vital Signs 08/05/18 08/05/18 07:43 08:59 Temperature 97.7 F 98.1 F Pulse Rate 84 72 Respiratory 18 20 Rate Blood Pressure 140/94 153/103 O2 Sat by Pulse 94 L 94 L Oximetry - Reevaluation(s) Reevaluation #1: 08/05/18 08:25 Patient seen ambulating without difficulty to the bathroom and back into bed. Reevaluation #2: 08/05/18 09:31 Patient been up bathroom approximately 4 times since emergency department stay at this time. Medical Decision Making - Medical Decision Making 52-year-old female presents emergency department today with multiple complaints including dizziness, shakiness, shortness of breath, complains of chest pain. Patient reports that she isn't having vomiting episodes as well as polyuria. Patient was started on IV fluids labwork obtained. She was recently started on Lasix approximately 2 days ago for fluid overload and CHF. Patient was found to be hyponatremic with sodium of 113. Chloride was 69. Chest x-ray shows venous congestion and cardiomegaly. Patient was given 1 L normal saline bolus and started 100 and hour. When informed of hyponatremia Patient does report that she was supposed to be on sodium and potassium pills but she cannot take them because they're too big for her to swallow. Patient will be admitted this time for her multiple complaints and episodes of hyponatremia. Dr. Torres discussed the case with Dr. Bray. - Lab Data Result diagrams: 08/05/18 08:52 08/05/18 08:52 Lab Results 08/05/18 08/05/18 08/05/18 Range/Units 08:45 08:52 08:52 WBC 11.4 H (3.8-10.6) k/uL RBC 5.13 (3.80-5.40) m/uL Hgb 16.8 H (11.4-16.0) gm/dL Hct 46.2 H (34.0-46.0) % MCV 90.1 D (80.0-100.0) fL MCH 32.8 (25.0-35.0) pg MCHC 36.4 (31.0-37.0) g/dL RDW 11.7 (11.5-15.5) % Plt Count 323 (150-450) k/uL Neutrophils % 74 % Lymphocytes % 18 % Monocytes % 7 % Eosinophils % 1 % Basophils % 0 % Neutrophils # 8.3 H (1.3-7.7) k/uL Lymphocytes # 2.0 (1.0-4.8) k/uL Monocytes # 0.8 (0-1.0) k/uL Eosinophils # 0.1 (0-0.7) k/uL Basophils # 0.0 (0-0.2) k/uL Sodium 113 L* (137-145) mmol/L Potassium 3.1 L (3.5-5.1) mmol/L Chloride 69 L* (98-107) mmol/L Carbon Dioxide 30 (22-30) mmol/L Anion Gap 14 mmol/L BUN 7 (7-17) mg/dL Creatinine 0.45 L (0.52-1.04) mg/dL Est GFR (CKD-EPI)AfAm >90 (>60 ml/min/1.73 sqM) Est GFR (CKD-EPI)NonAf >90 (>60 ml/min/1.73 sqM) Glucose 113 H (74-99) mg/dL Calcium 9.7 (8.4-10.2) mg/dL Total Bilirubin 1.3 (0.2-1.3) mg/dL AST 63 H (14-36) U/L ALT 44 (9-52) U/L Alkaline Phosphatase 83 (38-126) U/L Troponin I (0.000-0.034) ng/mL NT-Pro-B Natriuret Pep pg/mL Total Protein 7.5 (6.3-8.2) g/dL Albumin 4.2 (3.5-5.0) g/dL Urine Color Yellow Urine Appearance Clear (Clear) Urine pH 6.5 (5.0-8.0) Ur Specific Webster 1.009 (1.001-1.035) Urine Protein 2+ H (Negative) Urine Glucose (UA) Negative (Negative) Urine Ketones Negative (Negative) Urine Blood Moderate H (Negative) Urine Nitrite Negative (Negative) Urine Bilirubin Negative (Negative) Urine Urobilinogen <2.0 (<2.0) mg/dL Ur Leukocyte Esterase Negative (Negative) Urine RBC 3 (0-5) /hpf Urine WBC 5 (0-5) /hpf Ur Squamous Epith Cells 2 (0-4) /hpf 08/05/18 08/05/18 Range/Units 08:52 08:52 WBC (3.8-10.6) k/uL RBC (3.80-5.40) m/uL Hgb (11.4-16.0) gm/dL Hct (34.0-46.0) % MCV (80.0-100.0) fL MCH (25.0-35.0) pg MCHC (31.0-37.0) g/dL RDW (11.5-15.5) % Plt Count (150-450) k/uL Neutrophils % % Lymphocytes % % Monocytes % % Eosinophils % % Basophils % % Neutrophils # (1.3-7.7) k/uL Lymphocytes # (1.0-4.8) k/uL Monocytes # (0-1.0) k/uL Eosinophils # (0-0.7) k/uL Basophils # (0-0.2) k/uL Sodium (137-145) mmol/L Potassium (3.5-5.1) mmol/L Chloride (98-107) mmol/L Carbon Dioxide (22-30) mmol/L Anion Gap mmol/L BUN (7-17) mg/dL Creatinine (0.52-1.04) mg/dL Est GFR (CKD-EPI)AfAm (>60 ml/min/1.73 sqM) Est GFR (CKD-EPI)NonAf (>60 ml/min/1.73 sqM) Glucose (74-99) mg/dL Calcium (8.4-10.2) mg/dL Total Bilirubin (0.2-1.3) mg/dL AST (14-36) U/L ALT (9-52) U/L Alkaline Phosphatase (38-126) U/L Troponin I <0.012 (0.000-0.034) ng/mL NT-Pro-B Natriuret Pep 822 pg/mL Total Protein (6.3-8.2) g/dL Albumin (3.5-5.0) g/dL Urine Color Urine Appearance (Clear) Urine pH (5.0-8.0) Ur Specific Webster (1.001-1.035) Urine Protein (Negative) Urine Glucose (UA) (Negative) Urine Ketones (Negative) Urine Blood (Negative) Urine Nitrite (Negative) Urine Bilirubin (Negative) Urine Urobilinogen (<2.0) mg/dL Ur Leukocyte Esterase (Negative) Urine RBC (0-5) /hpf Urine WBC (0-5) /hpf Ur Squamous Epith Cells (0-4) /hpf - Radiology Data Radiology results: report reviewed EKG shows normal sinus rhythm, possible left atrial enlargement. Cannot rule out anterior infarct as directed. Prolonged QT. Abnormal EKG noted. Patient' s heart rate is 72 bpm. GA interval is 196 ms. QRS ration 100 ms. QT QTc is 3478/523 ms. Disposition Clinical Impression: Chest pain, Hyponatremia, Dizziness Disposition: ADMITTED IP TO THIS HOSP Condition: Stable Referrals: [facility] [Primary Care Provider] - 1-2 days
[2018-08-05] MEDS: SODIUM CHLORIDE 0.9% 1,000 ML IV SCH ×3 (08:59→21:11)
[2018-08-05 09:05] LABS: Appearance,Urine Clear (Clear); Bilirubin,Urine Negative (Negative); Blood,Urine Moderate (Negative); Color,Urine Yellow; Glucose,Urine (UA) Negative (Negative); Ketones,Urine Negative (Negative); Leukocyte Esterase,Urine Negative (Negative); Nitrite,Urine Negative (Negative); PH, Urine 6.5 (5.0-8.0); Protein,Urine 2+ (Negative); RBC,Urine 3 /hpf (0-5); Specific Gravity,Urine 1.009 (1.001-1.035); Squamous Epithelial Cell,Urine 2 /hpf (0-4); Urobilinogen,Urine <2.0 mg/dL (<2.0); WBC,Urine 5 /hpf (0-5)
[2018-08-05 09:10] LABS: Basophils % (A) 0 %; Eosinophils # (A) 0.1 k/uL (0-0.7); Eosinophils % (A) 1 %; HCT 46.2 % (34.0-46.0); HGB 16.8 gm/dL (11.4-16.0); Lymphocytes % (A) 18 %; MCH 32.8 pg (25.0-35.0); MCHC 36.4 g/dL (31.0-37.0); MCV 90.1 fL (80.0-100.0); Mean Platelet Volume 6.8; Monocytes # (A) 0.8 k/uL (0-1.0); Monocytes % (A) 7 %; Neutrophils # (A) 8.3 k/uL (1.3-7.7); Neutrophils % (A) 74 %; Platelet Count 323 k/uL (150-450); RBC 5.13 m/uL (3.80-5.40); RDW 11.7 % (11.5-15.5); WBC 11.4 k/uL (3.8-10.6)
[2018-08-05 09:16] LABS: ALT 44 U/L (9-52); AST 63 U/L (14-36); Albumin 4.2 g/dL (3.5-5.0); Alkaline Phosphatase 83 U/L (38-126); Anion Gap 14 mmol/L; Blood Urea Nitrogen 7 mg/dL (7-17); Calcium 9.7 mg/dL (8.4-10.2); Carbon Dioxide 30 mmol/L (22-30); Glucose 113 mg/dL (74-99); Potassium 3.1 mmol/L (3.5-5.1); Total Bilirubin 1.3 mg/dL (0.2-1.3); Total Protein 7.5 g/dL (6.3-8.2)
--- NOTE | 2018-08-05 09:16 | XR ---
EXAMINATION TYPE: XR chest 2V DATE OF EXAM: 08/05/2018 HISTORY: Shortness of breath and cough. REFERENCE: Previous study dated 08/03/2018. FINDINGS: The heart is enlarged. The lungs are clear. Pleural spaces are clear. There is mild vascula r congestion without malathi edema. IMPRESSION: 1. CARDIOMEGALY. 2. MILD VASCULAR CONGESTION.
[2018-08-05 09:19] LABS: Chloride 69 mmol/L (98-107); Sodium 113 mmol/L (137-145)
[2018-08-05] MEDS ORDERED: SODIUM CHLORIDE 0.9% 1,000 ML IV ONE (09:30)
[2018-08-05] MEDS ORDERED: traMADol 50 MG TAB PO PRN (09:34)
[2018-08-05] MEDS ORDERED: IBUPROFEN 400 MG TAB PO PRN (09:34)
[2018-08-05] MEDS ORDERED: ACETAMINOPHEN TAB 325 MG TAB PO PRN (09:34)
[2018-08-05] MEDS ORDERED: oxyCODONE-APAP 5-325MG 1 EACH TAB PO PRN (09:34)
[2018-08-05] MEDS ORDERED: NALOXONE 0.4 MG/ML 1 ML VIAL IV PRN (09:34)
[2018-08-05] MEDS ORDERED: NICOTINE 21MG/24HR PATCH TRANSDERM STA (09:53)
[2018-08-05] MEDS ORDERED: POTASSIUM CHLORIDE ER 20 MEQ TAB.ER PO STA ×2 (10:14→13:35)
[2018-08-05] MEDS ORDERED: ERGOCALCIFEROL 50,000 UNIT CAP PO SCH (10:15)
[2018-08-05] MEDS ORDERED: cloNIDine HCL 0.2 MG TAB PO STA (10:33)
[2018-08-05] MEDS: cloNIDine HCL 0.2 MG TAB PO SCH ×2 (10:39→20:04)
[2018-08-05] MEDS: ONDANSETRON 4 MG/2 ML VIAL IVP PRN ×2 (12:15→20:04)
--- NOTE | 2018-08-05 13:38 | P.HPIM ---
History of Present Illness Patient is a 52-year-old female had multiple visits to ER in the past medical hospitalization for multiple nonspecific symptoms came in with similar nonspecific symptoms apart as per the patient of the symptoms has been going on for a month including chest pain lightheadedness, nausea vomiting. Nausea vomiting has been going on since yesterday. There is no evidence of vomiting here today. Patient has significant psychiatric issues does have staring look and flat affect. Upon questioning patient admits to drinking lots of water she doesn't specifically mention how much and a half a bottle of pop. Patient denied any fever chills dysuria. Patient was extensively evaluated in the past for her chest pain and other above-mentioned symptoms. Patient is found to be severely hyponatremic with a serum sodium of 113 during her previous hospital physician her sodium was bit low and the patient the was on diuretic therapy which is her thiazide which was subsequently discontinued. Patient had a recent ER visit and was given Lasix for possible pulmonary edema and the time. Patient is always thirsty because of which she drinks water a lot. Patient is on trihexyphenidyl l and SSRI both of which can cause SIADH. Review of Systems All other review of systems is negative except those mentioned above Past Medical History Past Medical History: Chest Pain / Angina, Hypertension, Respiratory Disorder, Sleep Apnea/CPAP/BIPAP Additional Past Medical History / Comment(s): head injury in the past, cyst on right kidney History of Any Multi-Drug Resistant Organisms: None Reported Past Surgical History: Section, Heart Catheterization, Uterine Ablation Additional Past Surgical History / Comment(s): eye surgery, lithotripsy, OVARIAN CYST REMOVED RIGHT SIDE Past Anesthesia/Blood Transfusion Reactions: No Reported Reaction Past Psychological History: Anxiety, Bipolar, Depression, Schizophrenia Smoking Status: Current every day smoker Past Alcohol Use History: None Reported Past Drug Use History: None Reported - Past Family History Mother Family Medical History: Cancer Father Family Medical History: Unable to Obtain Medications and Allergies Home Medications Medication Instructions Recorded Confirmed Type Ergocalciferol [Vitamin D2 50,000 unit PO Q14D 09/19/17 08/03/18 History (DRISDOL)] Vortioxetine Hydrobromide 10 mg PO HS@1700 03/29/18 08/03/18 History [Trintellix] Carvedilol [Coreg*] 12.5 mg PO BID-W/MEALS #60 tab 03/30/18 08/03/18 Rx cloNIDine HCL [Catapres] 0.2 mg PO TID #90 tablet 03/30/18 08/03/18 Rx Hydrochlorothiazide [Hydrodiuril] 50 mg PO DAILY 04/07/18 08/03/18 History Losartan [Cozaar] 50 mg PO DAILY 04/07/18 08/03/18 History Ergocalciferol (Vitamin D2) 50,000 unit PO Q7DAYS 08/03/18 08/03/18 History [Drisdol] Fluticasone/Umeclidin/Vilanter 1 puff INHALATION RT-DAILY 08/03/18 08/03/18 History [Trelegy Ellipta 100-62.5-25] Furosemide [Lasix] 20 mg PO DAILY #3 tab 08/03/18 Rx Magnesium Oxide [Mag-Ox] 400 mg PO DAILY 08/03/18 08/03/18 History Nystatin [Nystop] 1 applic TOPICAL BID 08/03/18 08/03/18 History Potassium Chloride ER [K-Dur 20] 20 meq PO MOWEFR 08/03/18 08/03/18 History Trihexyphenidyl HCl 5 mg PO BID 08/03/18 08/03/18 History Allergies Allergy/AdvReac Type Severity Reaction Status Date / Time diphenhydramine Allergy Itching Verified 08/05/18 07:55 [From Benadryl] Iodinated Contrast- Oral and Allergy Rash/Hives Verified 08/05/18 07:55 IV Dye latex Allergy Rash/Hives Verified 08/05/18 07:55 Penicillins Allergy Rash/Hives Verified 08/05/18 07:55 propoxyphene Allergy Unknown Verified 08/05/18 07:55 Quinolones Allergy Rash/Hives Verified 08/05/18 07:55 Sulfa (Sulfonamide Allergy Rash/Hives Verified 08/05/18 07:55 Antibiotics) Physical Exam Vitals: Vital Signs Temp Pulse Resp BP Pulse Ox 08/05/18 08:59 98.1 F 72 20 153/103 94 L 08/05/18 07:43 97.7 F 84 18 140/94 94 L Intake and Output 08/04/18 08/05/18 08/05/18 23:59 06:59 14:59 Other: Weight 104.326 kg PHYSICAL EXAMINATION: GENERAL: The patient is alert and oriented x3, not in any acute distress. Well developed, well nourished. Staring look flat affect HEENT: Pupils are round and equally reacting to light. EOMI. No scleral icterus. No conjunctival pallor. Normocephalic, atraumatic. No pharyngeal erythema. No thyromegaly. CARDIOVASCULAR: S1 and S2 present. No murmurs, rubs, or gallops. PULMONARY: Chest is clear to auscultation, no wheezing or crackles. ABDOMEN: Soft, nontender, nondistended, normoactive bowel sounds. No palpable organomegaly. MUSCULOSKELETAL: No joint swelling or deformity. EXTREMITIES: No cyanosis, clubbing, or pedal edema. NEUROLOGICAL: Gross neurological examination did not reveal any focal deficits. SKIN: No rashes. Results CBC & Chem 7: 08/05/18 08:52 08/05/18 08:52 Labs: Abnormal Lab Results - Last 24 Hours (Table) 08/05/18 08/05/18 08/05/18 Range/Units 08:45 08:52 08:52 WBC 11.4 H (3.8-10.6) k/uL Hgb 16.8 H (11.4-16.0) gm/dL Hct 46.2 H (34.0-46.0) % Neutrophils # 8.3 H (1.3-7.7) k/uL Sodium 113 L* (137-145) mmol/L Potassium 3.1 L (3.5-5.1) mmol/L Chloride 69 L* (98-107) mmol/L Creatinine 0.45 L (0.52-1.04) mg/dL Glucose 113 H (74-99) mg/dL Osmolality (280-301) mosm/kg AST 63 H (14-36) U/L Urine Protein 2+ H (Negative) Urine Blood Moderate H (Negative) 08/05/18 Range/Units 08:52 WBC (3.8-10.6) k/uL Hgb (11.4-16.0) gm/dL Hct (34.0-46.0) % Neutrophils # (1.3-7.7) k/uL Sodium (137-145) mmol/L Potassium (3.5-5.1) mmol/L Chloride (98-107) mmol/L Creatinine (0.52-1.04) mg/dL Glucose (74-99) mg/dL Osmolality 226 L* (280-301) mosm/kg AST (14-36) U/L Urine Protein (Negative) Urine Blood (Negative) Assessment and Plan Plan: -Hyponatremia: Appears to be UL because of hyponatremia secondary to either SIADH from medications are psychogenic polydipsia. Patient will be fluid restricted will continue with IV fluids will obtain serum osmolality, urine osmolality, TSH urine random sodium urine random creatinine and nephrology will be consulted. And clinically does not have any pulmonary edema -Nausea vomiting probably due to mild gastritis, patient will be started on Pepcid although there is no evidence nausea vomiting here. -Leukocytosis reactive without any signs or symptoms of infection. -Multiple symptoms of dizziness, chest pain for which patient was extensively evaluated in the past no further workup will be done at this time -Hypertension -Bipolar and schizophrenia: There is a problem with the her antipsychotic and SSRIs contributing to her hyponatremia, considering her significant psychiatric history patient will be resumed and continued on these medications unless nephrology recommend to discontinue these medications.
[2018-08-05 16:03] VITALS: BMI 43.4
[2018-08-05] MEDS: VORTIOXETINE HYDROBROMIDE 10 MG TABLET PO SCH (17:22)
[2018-08-05] MEDS: FAMOTIDINE 20 MG TAB PO SCH (20:04)
[2018-08-05 20:11] LABS: Potassium 3.1 mmol/L (3.5-5.1)
[2018-08-05] MEDS ORDERED: Potassium Replacement Protocol 1 EACH MISC MISCELLANE PRN (20:35)
[2018-08-05] MEDS: TRIHEXYPHENIDYL 2 MG TAB PO SCH (20:51)
[2018-08-05] MEDS: POTASSIUM BICARBONATE/CIT AC 20 MEQ TABLET.EFF NG-TUBE SCH (21:11)
[2018-08-06] MEDS: ONDANSETRON 4 MG/2 ML VIAL IVP PRN (04:20)
[2018-08-06 06:13] LABS: Basophils % (A) 0 %; Eosinophils % (A) 1 %; HCT 43.4 % (34.0-46.0); HGB 15.5 gm/dL (11.4-16.0); Lymphocytes # (A) 2.2 k/uL (1.0-4.8); Lymphocytes % (A) 30 %; MCHC 35.7 g/dL (31.0-37.0); MCV 92.3 fL (80.0-100.0); Monocytes # (A) 0.8 k/uL (0-1.0); Monocytes % (A) 12 %; Neutrophils # (A) 4.1 k/uL (1.3-7.7); Neutrophils % (A) 56 %; Platelet Count 301 k/uL (150-450); RDW 11.8 % (11.5-15.5); WBC 7.2 k/uL (3.8-10.6)
[2018-08-06 06:39] LABS: Anion Gap 8 mmol/L; Blood Urea Nitrogen 8 mg/dL (7-17); Calcium 9.1 mg/dL (8.4-10.2); Carbon Dioxide 34 mmol/L (22-30); Chloride 81 mmol/L (98-107); Glucose 78 mg/dL (74-99); Potassium 3.7 mmol/L (3.5-5.1); Sodium 123 mmol/L (137-145)
[2018-08-06] MEDS: cloNIDine HCL 0.2 MG TAB PO SCH ×3 (07:03→21:27)
[2018-08-06] MEDS: FAMOTIDINE 20 MG TAB PO SCH ×2 (07:03→21:27)
[2018-08-06] MEDS: NICOTINE 21MG/24HR PATCH TRANSDERM SCH (08:34)
[2018-08-06] MEDS ORDERED: POTASSIUM CHLORIDE ER 20 MEQ TAB.ER PO SCH (09:00)
[2018-08-06] MEDS: MAGNESIUM OXIDE 400 MG TAB PO SCH (09:15)
[2018-08-06] MEDS: TRIHEXYPHENIDYL 2 MG TAB PO SCH ×2 (09:19→21:18)
--- NOTE | 2018-08-06 09:54 | P.PN ---
Subjective 52-year-old female admitted for severe hyponatremia with a serum sodium of 113 which improved to 123 today. Patient's hyponatremia is probably due to psychogenic polydipsia with possible competent of SIADH from her psychiatric medications. Nephrology will evaluated the patient. Urinalysis molality is 123. Patient's kidney function is essentially within normal limits patient is presently on fluid restriction along with IV normal saline. Patient wanted to leave today wanted to go out and smoke. Patient has a legal guardian. TSH within normal limits. Urine random sodium is not available. Constitutional: Denied any fatigue denied any fever. Cardio vascular: denied any chest pain, palpitations Gastrointestinal denied any nausea vomiting Pulmonary: Denied any shortness of breath cough Neurologic denied any new focal deficits Objective - Vital Signs Vital signs: Vital Signs Temp 97.3 F L 08/06/18 08:20 Pulse 82 08/06/18 08:20 Resp 17 08/06/18 08:20 BP 115/79 08/06/18 08:20 Pulse Ox 93 L 08/06/18 08:20 Intake & Output 08/05/18 08/06/18 08/06/18 18:59 06:59 18:59 Intake Total 1000 2210 222 Output Total 300 Balance 1000 1910 222 Weight 104.326 kg 96.8 kg Intake: Intake, IV Titration 400 Amount Sodium Chloride 0.9% 1, 400 000 ml @ 999 mls/hr IV . Q1H1M ONE Rx#:[id number] Oral 1000 1810 222 Output: Urine 300 Other: Voiding Method Toilet Toilet # Voids 5 - Exam PHYSICAL EXAMINATION: GENERAL: The patient is alert and oriented x3, not in any acute distress. Well developed, well nourished. Staring look flat affect HEENT: Pupils are round and equally reacting to light. EOMI. No scleral icterus. No conjunctival pallor. Normocephalic, atraumatic. No pharyngeal erythema. No thyromegaly. CARDIOVASCULAR: S1 and S2 present. No murmurs, rubs, or gallops. PULMONARY: Chest is clear to auscultation, no wheezing or crackles. ABDOMEN: Soft, nontender, nondistended, normoactive bowel sounds. No palpable organomegaly. MUSCULOSKELETAL: No joint swelling or deformity. EXTREMITIES: No cyanosis, clubbing, or pedal edema. NEUROLOGICAL: Gross neurological examination did not reveal any focal deficits. SKIN: No rashes. - Labs CBC & Chem 7: 08/06/18 05:37 08/06/18 05:37 Labs: Abnormal Lab Results - Last 24 Hours (Table) 08/05/18 08/05/18 08/06/18 Range/Units 08:52 19:41 05:37 Sodium 117 L* 123 L (137-145) mmol/L Potassium 3.1 L (3.5-5.1) mmol/L Chloride 74 L* 81 L (98-107) mmol/L Carbon Dioxide 31 H 34 H (22-30) mmol/L Osmolality 226 L* (280-301) mosm/kg Assessment and Plan Plan: -Hyponatremia: Appears to be euvolemic hyponatremia secondary to either SIADH from medications and/or psychogenic polydipsia. Patient's serum creatinine improved nephrology will evaluated the patient. -Nausea vomiting probably due to mild gastritis, patient will be started on Pepcid although there is no evidence nausea vomiting here. -Leukocytosis reactive without any signs or symptoms of infection. -Multiple symptoms of dizziness, chest pain for which patient was extensively evaluated in the past no further workup will be done at this time -Hypertension -Bipolar and schizophrenia: There is a problem with the her antipsychotic and SSRIs contributing to her hyponatremia, considering her significant psychiatric history patient will be resumed and continued on these medications unless nephrology recommend to discontinue these medications.
[2018-08-06 12:16] VITALS: RESP 18
[2018-08-06] MEDS: SODIUM CHLORIDE 0.9% 1,000 ML IV SCH (16:03)
[2018-08-06] MEDS: VORTIOXETINE HYDROBROMIDE 10 MG TABLET PO SCH (17:22)
--- NOTE | 2018-08-06 18:04 | CONS ---
CONSULTATION REASON FOR CONSULT: Hyponatremia. HISTORY OF PRESENT ILLNESS: Patient is a 52-year-old female who was admitted to the hospital with complaints of weakness and not feeling well. She also had some nausea, vomiting and diarrhea prior to admission. Patient stated she was supposed to take Lasix at home for about 5 days prior to admission. At home she is maintained on Cozaar and HydroDIURIL as well. Serum sodium this admission when patient came into the hospital was 117 mEq/L. Patient is currently maintained on normal saline. Her sodium has increased to 123 today. Initial sodium was 113 mEq/L. Patient states she wants to go home. She also states that she has had low sodium levels previously. Review of her previous labs does not reveal any significant hyponatremia lately. Patient has underlying history of bipolar disorder. PAST MEDICAL HISTORY: 1. Schizophrenia. 2. Hypertension. 3. Obstructive sleep apnea. 4. History of head injury. 5. History of cyst on the right kidney. SOCIAL HISTORY: Positive for smoking. PAST SURGICAL HISTORY: 1. . 2. Cardiac catheterization. 3. Uterine ablation. 4. Lithotripsy. 5. Eye surgery. 6. Removal of an ovarian cyst on the right side. MEDICATIONS: Medications at home prior to admission included: 1. Drisdol. 2. Coreg. 3. Clonidine. 4. HydroDIURIL. 5. Cozaar. 6. Vitamin D2. 7. Lasix. 8. Magnesium. 9. K-Dur. ALLERGIES: INCLUDE: 1. PENICILLIN. 2. LATEX. 3. PROPOXYPHENE. 4. QUINOLONE. 5. SULFA. 6. IV DYE. 7. BENADRYL, which causes itching, when most of the other reactions are rash and hives. REVIEW OF SYSTEMS: As per HPI. Other systems negative. PHYSICAL EXAMINATION: Patient is comfortable, awake, not in any acute distress. Blood pressure is 129/84, heart rate 75 per minute. Patient is afebrile. EXAMINATION OF THE HEART: S1, S2. EXAMINATION OF LUNGS: Bilateral breath sounds are heard. ABDOMEN: Soft, non-tender. Examination of lower extremities shows no evidence of edema. [employer] exam is grossly intact. Patient is moving all 4 extremities. LABS: Sodium 123 this morning. Potassium 3.7, BUN 8, serum creatinine 0.6, hemoglobin 15.5. ASSESSMENT: 1. Hypovolemic hyponatremia, currently improved with normal saline. I will hold off on the thiazide diuretics as well. Upon discharge, patient should hold off on Lasix, too. 2. Hypokalemia, status post replacement. 3. Bipolar disorder. 4. Hypertension, currently on clonidine. PLAN: Maintain normal saline. Repeat a sodium this afternoon. If serum sodium is significantly improved, patient could be discharged. However, she needs to avoid thiazide diuretics upon discharge. MMODL / IJN: [id number] /
[2018-08-07] MEDS: SODIUM CHLORIDE 0.9% 1,000 ML IV SCH (01:38)
[2018-08-07] MEDS: ONDANSETRON 4 MG/2 ML VIAL IVP PRN (06:28)
[2018-08-07 06:29] LABS: Anion Gap 8 mmol/L; Blood Urea Nitrogen 12 mg/dL (7-17); Calcium 9.3 mg/dL (8.4-10.2); Carbon Dioxide 30 mmol/L (22-30); Chloride 92 mmol/L (98-107); Glucose 93 mg/dL (74-99); Potassium 3.6 mmol/L (3.5-5.1); Sodium 130 mmol/L (137-145)
[2018-08-07] MEDS: TRIHEXYPHENIDYL 2 MG TAB PO SCH (06:30)
[2018-08-07] MEDS: FAMOTIDINE 20 MG TAB PO SCH (08:26)
[2018-08-07] MEDS: MAGNESIUM OXIDE 400 MG TAB PO SCH (08:26)
[2018-08-07] MEDS: NICOTINE 21MG/24HR PATCH TRANSDERM SCH (08:27)
[2018-08-07] MEDS: cloNIDine HCL 0.2 MG TAB PO SCH (08:52)
[2018-08-07 10:01] VITALS: BP 130/85; PULSE 75; TEMP 98.3
--- NOTE | 2018-08-07 21:39 | PN ---
PROGRESS NOTE Patient is seen for followup for hyponatremia. Her serum sodium has improved to 130 today. Patient has been maintained on saline and she wants to go home. PHYSICAL EXAMINATION: On examination today, blood pressure was 130/85, heart rate 75 per minute. Patient is afebrile. She appears euvolemic with no evidence of edema in lower extremities. LABS: Show serum sodium of 130 from today, potassium 3.6. ASSESSMENT: 1. Hypovolemic hyponatremia, improving with normal saline. Continue off of Lasix and thiazide and repeat labs as outpatient. 2. Bipolar disorder. PLAN: The patient can be discharged and she will follow up as outpatient for hyponatremia. MMODL / IJN: [id number] /
--- NOTE | 2018-08-09 12:02 | CDI ---
Last Revision, September 2017 Documentation Clarification Form Date: 08/09/18 From: Jody Chauhan Phone: If you have a question regarding this query, please contact Bri Escamilla at [phone] between 8am and 5pm. Admit Date: 08/05/2018 10:10:00 AM Patient Name: Smooth Funk Visit Number: [id number] Discharge Date: 08/07/18 ATTENTION: The Clinical Documentation Specialists (CDI) and [facility] Coding Staff appreciate your assistance in clarifying documentation. Please respond to the clarification below the line at the bottom and electronically sign. The CDI & [facility] Coding staff will review the response and follow-up if needed. Please note: Queries are made part of the Legal Health Record. If you have any questions, please contact the author of this message via ITS. Blu Crockett MD CHF is documented in the ED note. Documentation states "She was recently started on Lasix approximately 2 days ago for fluid overload and CHF. History/Risk Factors: Patient has a history of hypertension and obstructive sleep apnea. Clinical Indicators: No edema. Mild vascular congestion. VS/Pulse OX: T. 97.7, P. 84, R. 18, BP 140/94, Pulse Ox. 94 BNP: 822 Echocardiogram Results: Not done Chest X Ray: 1. Cardiomegaly. 2. Mild vascular congestion Treatment: Patient was started on Lasix approximately 2 dayst ago. Patient was not on a diuretic during this admission. In your professional opinion, can you please clarify the acuity and type of CHF if known? Systolic Heart Failure: Acute Chronic Acute on Chronic Diastolic Heart Failure: Acute Chronic Acute on Chronic Systolic & Diastolic Heart Failure: Acute Chronic Acute on Chronic Heart Failure Unable to Determine Other, please specify No heart failure MTDD
[2018-08-12] MEDS ORDERED: ERGOCALCIFEROL 50,000 UNIT CAP PO SCH (09:00)
== END 2018-08-07 13:16 | disposition home or self-care (01) | DRG 641 ==
LOC: EC 07:37 → 3SCARD 10:10
PROVIDERS: ADMIT Hospitalist; ATTEND Hospitalist
DX: E87.1 Hypo-osmolality and hyponatremia (principal); F20.9 Schizophrenia, unspecified; D72.829 Elevated white blood cell count, unspecified; E87.6 Hypokalemia; F17.210 Nicotine dependence, cigarettes, uncomplicated; I10 Essential (primary) hypertension; F41.9 Anxiety disorder, unspecified; F32.9 Major depressive disorder, single episode, unspecified; G47.33 Obstructive sleep apnea (adult) (pediatric); K29.70 Gastritis, unspecified, without bleeding; N28.1 Cyst of kidney, acquired; R07.9 Chest pain, unspecified; R42 Dizziness and giddiness; Z87.828 Personal history of other (healed) physical injury and trauma; Z79.899 Other long term (current) drug therapy; Z88.0 Allergy status to penicillin; Z88.2 Allergy status to sulfonamides; Z88.8 Allergy status to other drugs, medicaments and biological substances; Z88.4 Allergy status to anesthetic agent; Z91.041 Radiographic dye allergy status; Z91.040 Latex allergy status
CPT/HCPCS: 36415; 71046; 80048; 80051; 80053; 81001; 82570; 83880; 83930; 83935; 84295; 84300; 84443; 84484; 85025; 93005; 94640; 96360; 99285; 99406

== ENCOUNTER 2018-09-12 18:21 | Emergency (ER) | payer MEDICARE, OTHER ==
--- NOTE | 2018-09-12 20:03 | ED ---
General Adult HPI - General Chief complaint: Recheck/Abnormal Lab/Rx Stated complaint: High BP Time Seen by Provider: 09/12/18 20:01 Source: patient, RN notes reviewed, old records reviewed Mode of arrival: wheelchair Limitations: no limitations - History of Present Illness Initial comments: This is a 52-year-old female the ER for evaluation. States she presents for evaluation regards to chest pain nausea vomiting elevated blood pressure. Patient has history of high blood pressure, history of underlying psychiatric illness. Patient won't this emergency room. Patient denies any other complaints or recent travel history sick contacts, patient's admits to all pain and all symptoms being chronic in nature. Denies any recent change in medications. No recent sick contacts hospital admissions. - Related Data Home Medications Medication Instructions Recorded Confirmed Ergocalciferol (Vitamin D2) 50,000 unit PO MO 08/03/18 09/12/18 [Drisdol] Trihexyphenidyl HCl 5 mg PO BID 08/03/18 09/12/18 Fluticasone/Umeclidin/Vilanter 1 puff INHALATION RT-DAILY 08/05/18 09/12/18 [Treleashvin Ellipta 100-62.5-25] Vortioxetine Hydrobromide 20 mg PO HS 08/05/18 09/12/18 [Trintellix] Carvedilol [Coreg] 25 mg PO BID 09/12/18 09/12/18 Hydrochlorothiazide 50 mg PO DAILY 09/12/18 09/12/18 Omeprazole 20 mg PO DAILY 09/12/18 09/12/18 amLODIPine [Norvasc] 2.5 mg PO DAILY 09/12/18 09/12/18 cloNIDine HCL [Catapres] 0.2 mg PO QID 09/12/18 09/12/18 Allergies Allergy/AdvReac Type Severity Reaction Status Date / Time diphenhydramine Allergy Itching Verified 09/12/18 20:37 [From Benadryl] Iodinated Contrast- Oral and Allergy Rash/Hives Verified 09/12/18 20:37 IV Dye latex Allergy Rash/Hives Verified 09/12/18 20:37 Penicillins Allergy Rash/Hives Verified 09/12/18 20:37 propoxyphene Allergy Unknown Verified 09/12/18 20:37 Quinolones Allergy Rash/Hives Verified 09/12/18 20:37 Sulfa (Sulfonamide Allergy Rash/Hives Verified 09/12/18 20:37 Antibiotics) Review of Systems ROS Statement: Those systems with pertinent positive or pertinent negative responses have been documented in the HPI. ROS Other: All systems not noted in ROS Statement are negative. Past Medical History Past Medical History: Chest Pain / Angina, Hypertension, Respiratory Disorder, Sleep Apnea/CPAP/BIPAP Additional Past Medical History / Comment(s): head injury in the past, cyst on right kidney History of Any Multi-Drug Resistant Organisms: None Reported Past Surgical History: Section, Heart Catheterization, Uterine Ablation Additional Past Surgical History / Comment(s): eye surgery, lithotripsy, OVARIAN CYST REMOVED RIGHT SIDE Past Anesthesia/Blood Transfusion Reactions: No Reported Reaction Past Psychological History: Anxiety, Bipolar, Depression, Schizophrenia Smoking Status: Current every day smoker Past Alcohol Use History: None Reported Past Drug Use History: None Reported - Past Family History Mother Family Medical History: Cancer Father Family Medical History: Unable to Obtain General Exam Limitations: no limitations General appearance: alert, in no apparent distress Head exam: Present: atraumatic, normocephalic, normal inspection Eye exam: Present: normal appearance, PERRL, EOMI. Absent: scleral icterus, conjunctival injection, periorbital swelling ENT exam: Present: normal exam, mucous membranes moist Neck exam: Present: normal inspection. Absent: tenderness, meningismus, lymphadenopathy Respiratory exam: Present: normal lung sounds bilaterally. Absent: respiratory distress, wheezes, rales, rhonchi, stridor Cardiovascular Exam: Present: regular rate, normal rhythm, normal heart sounds. Absent: systolic murmur, diastolic murmur, rubs, gallop, clicks GI/Abdominal exam: Present: soft, normal bowel sounds. Absent: distended, tenderness, guarding, rebound, rigid Extremities exam: Present: normal inspection, full ROM, normal capillary refill. Absent: tenderness, pedal edema, joint swelling, calf tenderness Back exam: Present: normal inspection Neurological exam: Present: alert, oriented X3, CN II-XII intact Psychiatric exam: Present: normal affect, normal mood Skin exam: Present: warm, dry, intact, normal color. Absent: rash Course Vital Signs 09/12/18 09/12/18 18:29 20:45 Temperature 97.8 F Pulse Rate 72 67 Respiratory 20 18 Rate Blood Pressure 112/80 125/66 O2 Sat by Pulse 98 98 Oximetry - Reevaluation(s) Reevaluation #1: 09/12/18 20:55 Medical record is reviewed Reevaluation #2: 09/12/18 20:55 Patient well-known to emergency room multiple hospital and ER visits for similar complaints Medical Decision Making - Medical Decision Making 52 female THIS emergency room, patient's blood pressure vital signs are normal here in the ER, patient would like to be discharged home Disposition Clinical Impression: Uncontrolled hypertension, Psychosis, Palpitations Disposition: HOME SELF-CARE Condition: Good Instructions: Hypertension (ED) Is patient prescribed a controlled substance at d/c from ED?: No Referrals: Iain Rodriguez MD [Primary Care Provider] - 1-2 days
[2018-09-12 20:46] VITALS: PULSE 67
[2018-09-12] MEDS ORDERED: SODIUM CHLORIDE 0.9% 1,000 ML IV STA ×2 (21:07)
[2018-09-12] MEDS ORDERED: SODIUM CHLORIDE 0.9% 500 ML 500 ML IV STA (21:07)
[2018-09-12 21:43] LABS: Basophils # (A) 0.1 k/uL (0-0.2); Basophils % (A) 1 %; Eosinophils # (A) 0.2 k/uL (0-0.7); Eosinophils % (A) 2 %; HCT 47.4 % (34.0-46.0); HGB 16.7 gm/dL (11.4-16.0); Lymphocytes # (A) 4.2 k/uL (1.0-4.8); Lymphocytes % (A) 35 %; MCHC 35.1 g/dL (31.0-37.0); Mean Platelet Volume 6.7; Monocytes # (A) 0.7 k/uL (0-1.0); Monocytes % (A) 5 %; Neutrophils # (A) 6.6 k/uL (1.3-7.7); Neutrophils % (A) 56 %; Platelet Count 308 k/uL (150-450); RBC 5.05 m/uL (3.80-5.40); RDW 12.4 % (11.5-15.5); WBC 11.9 k/uL (3.8-10.6)
[2018-09-12 21:55] LABS: Creatine Kinase 176 U/L (30-135)
[2018-09-12 21:59] LABS: ALT 34 U/L (9-52); AST 25 U/L (14-36); Albumin 4.2 g/dL (3.5-5.0); Alkaline Phosphatase 77 U/L (38-126); Anion Gap 12 mmol/L; Blood Urea Nitrogen 13 mg/dL (7-17); Calcium 9.9 mg/dL (8.4-10.2); Carbon Dioxide 29 mmol/L (22-30); Chloride 87 mmol/L (98-107); Glucose 99 mg/dL (74-99); Magnesium 1.6 mg/dL (1.6-2.3); Phosphorus 3.6 mg/dL (2.5-4.5); Potassium 3.6 mmol/L (3.5-5.1); Sodium 128 mmol/L (137-145); Total Bilirubin 0.5 mg/dL (0.2-1.3); Total Protein 7.4 g/dL (6.3-8.2)
[2018-09-12 22:08] LABS: Troponin I <0.012 ng/mL (0.000-0.034)
[2018-09-12 22:54] VITALS: BP 130/78; RESP 16; TEMP 97.9
== END 2018-09-12 22:55 | disposition home or self-care (01) ==
LOC: EC 18:21
DX: I10 Essential (primary) hypertension (principal); F29 Unspecified psychosis not due to a substance or known physiological condition; R00.2 Palpitations; R11.2 Nausea with vomiting, unspecified; R07.9 Chest pain, unspecified; F41.9 Anxiety disorder, unspecified; F32.9 Major depressive disorder, single episode, unspecified; F20.9 Schizophrenia, unspecified; F17.200 Nicotine dependence, unspecified, uncomplicated; G47.30 Sleep apnea, unspecified; Z99.89 Dependence on other enabling machines and devices; Z95.818 Presence of other cardiac implants and grafts; Z79.899 Other long term (current) drug therapy; Z88.8 Allergy status to other drugs, medicaments and biological substances; Z91.041 Radiographic dye allergy status; Z91.040 Latex allergy status; Z88.0 Allergy status to penicillin; Z88.5 Allergy status to narcotic agent; Z88.1 Allergy status to other antibiotic agents; Z88.2 Allergy status to sulfonamides
CPT/HCPCS: 36415; 80053; 82550; 82553; 83735; 84100; 84484; 85025; 93005; 96360; 99284

== ENCOUNTER 2018-12-31 09:49 | Emergency (ER) | payer MEDICARE, OTHER ==
[2018-12-31 10:00] VITALS: RESP 18; TEMP 97.8
[2018-12-31] MEDS ORDERED: SODIUM CHLORIDE 0.9% 500 ML 500 ML IV STA (10:13)
[2018-12-31] MEDS ORDERED: NYSTATIN 100,000UNIT/GM CREAM 30 GM TUBE TOPICAL STA (10:14)
[2018-12-31] MEDS ORDERED: FLUCONAZOLE 150 MG TAB PO STA (10:14)
[2018-12-31 10:58] LABS: Basophils # (A) 0.1 k/uL (0-0.2); Basophils % (A) 0 %; Eosinophils # (A) 0.1 k/uL (0-0.7); Eosinophils % (A) 1 %; HCT 45.8 % (34.0-46.0); HGB 15.5 gm/dL (11.4-16.0); Lymphocytes % (A) 14 %; MCH 31.5 pg (25.0-35.0); MCHC 33.9 g/dL (31.0-37.0); MCV 92.9 fL (80.0-100.0); Mean Platelet Volume 6.7; Monocytes # (A) 0.7 k/uL (0-1.0); Monocytes % (A) 5 %; Neutrophils # (A) 11.5 k/uL (1.3-7.7); Neutrophils % (A) 80 %; Platelet Count 432 k/uL (150-450); RBC 4.93 m/uL (3.80-5.40); RDW 12.2 % (11.5-15.5); WBC 14.4 k/uL (3.8-10.6)
--- NOTE | 2018-12-31 11:15 | XR ---
EXAMINATION TYPE: XR chest 2V DATE OF EXAM: 12/31/2018 COMPARISON: Chest x-ray August 05, 2018. HISTORY: Dizziness and weakness. TECHNIQUE: Frontal and lateral views of the chest are obtained. FINDINGS: There is no focal air space opacity, pleural effusion, or pneumothorax seen. The cardiac silhouette size remains enlarged. Some increased central markings are felt present more prominent fr om prior. The osseous structures are intact. IMPRESSION: Correlate for CHF exacerbation as there is cardiomegaly with suspected more prominent mi ld central vascular congestion.
--- NOTE | 2018-12-31 11:16 | ED ---
General Adult HPI - General Chief complaint: Dizziness Stated complaint: NEAR SYNCOPE Time Seen by Provider: 12/31/18 10:00 Source: patient, RN notes reviewed Mode of arrival: EMS Limitations: no limitations - History of Present Illness Initial comments: 53-year-old male with a past medical history of chest pain, hypertension, sleep apnea presents to the emergency department for multiple complaints. Patient states she feels lightheaded. Denies loss of consciousness. Denies room spinning. Patient states that she has chest pain for the past few days. She states that her heart feels like it is racing. She denies shortness of breath.Patient has no other complaints at this time including shortness of breath, abdominal pain, nausea or vomiting, headache, or visual changes. - Related Data Home Medications Medication Instructions Recorded Confirmed Ergocalciferol (Vitamin D2) 50,000 unit PO MO 08/03/18 12/31/18 [Drisdol] Vortioxetine Hydrobromide 20 mg PO HS 08/05/18 12/31/18 [Trintellix] Carvedilol [Coreg] 25 mg PO BID 09/12/18 12/31/18 Hydrochlorothiazide 50 mg PO DAILY 09/12/18 12/31/18 Omeprazole 20 mg PO DAILY 09/12/18 12/31/18 amLODIPine [Norvasc] 2.5 mg PO DAILY 09/12/18 12/31/18 cloNIDine HCL [Catapres] 0.2 mg PO QID 09/12/18 12/31/18 fluPHENAZine DECANOATE [Prolixin 50 mg IM WE 12/31/18 12/31/18 Decanoate] Allergies Allergy/AdvReac Type Severity Reaction Status Date / Time diphenhydramine Allergy Itching Verified 12/31/18 10:28 [From Benadryl] Iodinated Contrast- Oral and Allergy Rash/Hives Verified 12/31/18 10:28 IV Dye latex Allergy Rash/Hives Verified 12/31/18 10:28 Penicillins Allergy Rash/Hives Verified 12/31/18 10:28 propoxyphene Allergy Unknown Verified 12/31/18 10:28 Quinolones Allergy Rash/Hives Verified 12/31/18 10:28 Sulfa (Sulfonamide Allergy Rash/Hives Verified 12/31/18 10:28 Antibiotics) Review of Systems ROS Statement: Those systems with pertinent positive or pertinent negative responses have been documented in the HPI. ROS Other: All systems not noted in ROS Statement are negative. Past Medical History Past Medical History: Chest Pain / Angina, Hypertension, Respiratory Disorder, Sleep Apnea/CPAP/BIPAP Additional Past Medical History / Comment(s): head injury in the past, cyst on right kidney History of Any Multi-Drug Resistant Organisms: None Reported Past Surgical History: Section, Heart Catheterization, Uterine Ablation Additional Past Surgical History / Comment(s): eye surgery, lithotripsy, OVARIAN CYST REMOVED RIGHT SIDE Past Anesthesia/Blood Transfusion Reactions: No Reported Reaction Past Psychological History: Anxiety, Bipolar, Depression, Schizophrenia Smoking Status: Current every day smoker Past Alcohol Use History: None Reported Past Drug Use History: None Reported - Past Family History Mother Family Medical History: Cancer Father Family Medical History: Unable to Obtain General Exam Limitations: no limitations General appearance: alert, in no apparent distress Head exam: Present: atraumatic, normocephalic, normal inspection Eye exam: Present: normal appearance, PERRL, EOMI. Absent: scleral icterus, conjunctival injection, periorbital swelling ENT exam: Present: normal exam, mucous membranes moist Neck exam: Present: normal inspection, full ROM. Absent: tenderness, meningismus, lymphadenopathy Respiratory exam: Present: normal lung sounds bilaterally (CTAB). Absent: respiratory distress, wheezes, rales, rhonchi, stridor Cardiovascular Exam: Present: regular rate, normal rhythm, normal heart sounds. Absent: systolic murmur, diastolic murmur, rubs, gallop, clicks Neurological exam: Present: alert, oriented X3, CN II-XII intact Psychiatric exam: Present: normal affect, normal mood Course Vital Signs 12/31/18 09:53 Temperature 97.8 F Pulse Rate 92 Respiratory 18 Rate Blood Pressure 139/95 O2 Sat by Pulse 96 Oximetry - Reevaluation(s) Reevaluation #1: 12/31/18 11:15 Patient specifically requesting a cold and a chicken sandwich several times. Initially told patient that she cannot have these until we have her lab work back. However patient insisting that her dizziness is related to not having eaten and specifically wants a chicken sandwich. EKG Findings - EKG Comments: EKG Findings:: Normal sinus rhythm, ventricular rate 84, NV interval 22, QRS ratio 94, QTC 477 Medical Decision Making - Medical Decision Making 53-year-old female presents to the emergency department for multiple complaints including lightheadedness, chest pain, palpitations. On exam patient is concerned about getting a sandwich and Coke. Exam is unremarkable, lung sounds clear bilaterally. CBC unremarkable, white count 14.4 likely reactive. CMP does show a sodium of 125, patient given 500 mL's of normal saline. CMP otherwise unremarkable. Troponin negative. EKG shows a normal sinus rhythm with a ventricular rate of [address] elevation or depression. Chest x-ray initially showed possible CHF exacerbation however BNP is within normal limits, patient denying shortness of breath, and when compared to x-ray from 5 months ago it is similar. Patient requesting to leave multiple times. States she feels better and wants to go. Patient given sodium chloride pill however educated to follow up tomorrow to recheck her sodium. - Lab Data Result diagrams: 12/31/18 10:26 12/31/18 10:26 Lab Results 12/31/18 12/31/18 12/31/18 Range/Units 10:26 10:26 10:26 WBC 14.4 H (3.8-10.6) k/uL RBC 4.93 (3.80-5.40) m/uL Hgb 15.5 (11.4-16.0) gm/dL Hct 45.8 (34.0-46.0) % MCV 92.9 (80.0-100.0) fL MCH 31.5 (25.0-35.0) pg MCHC 33.9 (31.0-37.0) g/dL RDW 12.2 (11.5-15.5) % Plt Count 432 (150-450) k/uL Neutrophils % 80 % Lymphocytes % 14 % Monocytes % 5 % Eosinophils % 1 % Basophils % 0 % Neutrophils # 11.5 H (1.3-7.7) k/uL Lymphocytes # 2.0 (1.0-4.8) k/uL Monocytes # 0.7 (0-1.0) k/uL Eosinophils # 0.1 (0-0.7) k/uL Basophils # 0.1 (0-0.2) k/uL Sodium 125 L (137-145) mmol/L Potassium 3.7 (3.5-5.1) mmol/L Chloride 86 L (98-107) mmol/L Carbon Dioxide 24 (22-30) mmol/L Anion Gap 15 mmol/L BUN 8 (7-17) mg/dL Creatinine 0.55 (0.52-1.04) mg/dL Est GFR (CKD-EPI)AfAm >90 (>60 ml/min/1.73 sqM) Est GFR (CKD-EPI)NonAf >90 (>60 ml/min/1.73 sqM) Glucose 159 H (74-99) mg/dL Calcium 10.1 (8.4-10.2) mg/dL Total Bilirubin 0.8 (0.2-1.3) mg/dL AST 38 H (14-36) U/L ALT 33 (9-52) U/L Alkaline Phosphatase 80 (38-126) U/L Troponin I <0.012 (0.000-0.034) ng/mL NT-Pro-B Natriuret Pep pg/mL Total Protein 7.5 (6.3-8.2) g/dL Albumin 4.3 (3.5-5.0) g/dL 12/31/18 Range/Units 10:26 WBC (3.8-10.6) k/uL RBC (3.80-5.40) m/uL Hgb (11.4-16.0) gm/dL Hct (34.0-46.0) % MCV (80.0-100.0) fL MCH (25.0-35.0) pg MCHC (31.0-37.0) g/dL RDW (11.5-15.5) % Plt Count (150-450) k/uL Neutrophils % % Lymphocytes % % Monocytes % % Eosinophils % % Basophils % % Neutrophils # (1.3-7.7) k/uL Lymphocytes # (1.0-4.8) k/uL Monocytes # (0-1.0) k/uL Eosinophils # (0-0.7) k/uL Basophils # (0-0.2) k/uL Sodium (137-145) mmol/L Potassium (3.5-5.1) mmol/L Chloride (98-107) mmol/L Carbon Dioxide (22-30) mmol/L Anion Gap mmol/L BUN (7-17) mg/dL Creatinine (0.52-1.04) mg/dL Est GFR (CKD-EPI)AfAm (>60 ml/min/1.73 sqM) Est GFR (CKD-EPI)NonAf (>60 ml/min/1.73 sqM) Glucose (74-99) mg/dL Calcium (8.4-10.2) mg/dL Total Bilirubin (0.2-1.3) mg/dL AST (14-36) U/L ALT (9-52) U/L Alkaline Phosphatase (38-126) U/L Troponin I (0.000-0.034) ng/mL NT-Pro-B Natriuret Pep 244 pg/mL Total Protein (6.3-8.2) g/dL Albumin (3.5-5.0) g/dL - EKG Data -: EKG Interpreted by Me (and Dr Gan) Disposition Clinical Impression: Hyponatremia Disposition: HOME SELF-CARE Condition: Good Instructions (If sedation given, give patient instructions): Hyponatremia (ED) Additional Instructions: [facility] to recheck your sodium. Please return here for any worsening symptoms. Is patient prescribed a controlled substance at d/c from ED?: No Referrals: [facility] [Primary Care Provider] - 1-2 days Time of Disposition: 12:36
[2018-12-31 11:32] LABS: ALT 33 U/L (9-52); AST 38 U/L (14-36); Albumin 4.3 g/dL (3.5-5.0); Alkaline Phosphatase 80 U/L (38-126); Anion Gap 15 mmol/L; Blood Urea Nitrogen 8 mg/dL (7-17); Calcium 10.1 mg/dL (8.4-10.2); Carbon Dioxide 24 mmol/L (22-30); Chloride 86 mmol/L (98-107); Glucose 159 mg/dL (74-99); Sodium 125 mmol/L (137-145); Total Bilirubin 0.8 mg/dL (0.2-1.3); Total Protein 7.5 g/dL (6.3-8.2)
[2018-12-31 11:59] LABS: Potassium 3.7 mmol/L (3.5-5.1)
[2018-12-31] MEDS ORDERED: SODIUM BICARBONATE TAB 650 MG TAB PO STA (12:35)
[2018-12-31 13:11] VITALS: BP 140/82; PULSE 97
== END 2018-12-31 13:10 | disposition home or self-care (01) ==
LOC: EC 09:49
DX: E87.1 Hypo-osmolality and hyponatremia (principal); I10 Essential (primary) hypertension; G47.30 Sleep apnea, unspecified; Z99.89 Dependence on other enabling machines and devices; F20.9 Schizophrenia, unspecified; F31.9 Bipolar disorder, unspecified; F41.9 Anxiety disorder, unspecified; F17.200 Nicotine dependence, unspecified, uncomplicated; Z79.899 Other long term (current) drug therapy; Z88.0 Allergy status to penicillin; Z88.1 Allergy status to other antibiotic agents; Z88.2 Allergy status to sulfonamides; Z91.040 Latex allergy status; Z91.041 Radiographic dye allergy status; Z88.8 Allergy status to other drugs, medicaments and biological substances; Z95.818 Presence of other cardiac implants and grafts
CPT/HCPCS: 36415; 71046; 80053; 83880; 84484; 85025; 93005; 96360; 99285

== ENCOUNTER 2019-02-02 14:45 | Emergency (ER) | payer MEDICARE, OTHER ==
[2019-02-02 14:59] VITALS: RESP 18; TEMP 97.8
--- NOTE | 2019-02-02 15:24 | ED ---
Chest Pain HPI - General Chief Complaint: Chest Pain Stated Complaint: Nausea,dizzy Time Seen by Provider: 02/02/19 14:53 Source: patient, EMS Mode of arrival: EMS Limitations: no limitations - History of Present Illness Initial Comments: Patient is a 53-year-old female presenting for multiple complaints. Patient states that for the last month, she has been having intermittent nausea as well as chest pain that is on the left side radiating to the left arm. She states that she has had sweats as well as coughing and thinks she has pneumonia. She denies any fevers or chills or vomiting or diarrhea. She states that she had a cardiac cath last year as well as last month in both which were negative. She also states that she has been dizzy and lightheaded and his passed out although she denies any significant head trauma. - Related Data Home Medications Medication Instructions Recorded Confirmed Ergocalciferol (Vitamin D2) 50,000 unit PO MO 08/03/18 02/02/19 [Drisdol] Vortioxetine Hydrobromide 20 mg PO HS 08/05/18 02/02/19 [Trintellix] Carvedilol [Coreg] 25 mg PO BID 09/12/18 02/02/19 Hydrochlorothiazide 50 mg PO DAILY 09/12/18 02/02/19 Omeprazole 20 mg PO DAILY 09/12/18 02/02/19 amLODIPine [Norvasc] 2.5 mg PO DAILY 09/12/18 02/02/19 fluPHENAZine DECANOATE [Prolixin 50 mg IM WE 12/31/18 02/02/19 Decanoate] Hydrocortisone Cream 1 applic TOPICAL QID 02/02/19 02/02/19 [Hydrocortisone 2.5% Cream] Nystatin 100,000 Unit/gm Powd 1 applic TOPICAL TID PRN 02/02/19 02/02/19 [Mycostatin Powder] Trihexyphenidyl HCl 5 mg PO BID 02/02/19 02/02/19 cloNIDine HCL [Catapres] 0.2 mg PO TID 02/02/19 02/02/19 Allergies Allergy/AdvReac Type Severity Reaction Status Date / Time diphenhydramine Allergy Itching Verified 02/02/19 16:09 [From Benadryl] Iodinated Contrast- Oral and Allergy Rash/Hives Verified 02/02/19 16:09 IV Dye latex Allergy Rash/Hives Verified 02/02/19 16:09 Penicillins Allergy Rash/Hives Verified 02/02/19 16:09 propoxyphene Allergy Unknown Verified 02/02/19 16:09 Quinolones Allergy Rash/Hives Verified 02/02/19 16:09 Sulfa (Sulfonamide Allergy Rash/Hives Verified 02/02/19 16:09 Antibiotics) Review of Systems ROS Statement: Those systems with pertinent positive or pertinent negative responses have been documented in the HPI. Constitutional: Negative for chills, fatigue and fever. HENT: Negative for congestion. Respiratory: Negative for chest tightness, shortness of breath and wheezing. Positive for cough Cardiovascular: Positive for chest pain and negative for palpitations. Positive for syncope Gastrointestinal: Negative for abdominal pain. Negative for abdominal distention, diarrhea, nausea and vomiting. Genitourinary: Negative for dysuria. Musculoskeletal: Negative for back pain, neck pain and neck stiffness. Skin: Negative for color change. Neurological: Positive for dizziness, negative for speech difficulty, weakness and light-headedness. Psychiatric/Behavioral: Negative for agitation and confusion. Negative for anxiety ROS Other: All systems not noted in ROS Statement are negative. EKG Findings - EKG Comments: EKG Findings:: EKG shows normal sinus rhythm with a rate of 70 bpm, [place] interval 206, QRS 88, QTC 43. There are no significant ST depressions or elevations. Past Medical History Past Medical History: Chest Pain / Angina, Hypertension, Respiratory Disorder, Sleep Apnea/CPAP/BIPAP Additional Past Medical History / Comment(s): head injury in the past, cyst on right kidney History of Any Multi-Drug Resistant Organisms: None Reported Past Surgical History: Section, Heart Catheterization, Uterine Ablation Additional Past Surgical History / Comment(s): eye surgery, lithotripsy, OVARIAN CYST REMOVED RIGHT SIDE Past Anesthesia/Blood Transfusion Reactions: No Reported Reaction Past Psychological History: Anxiety, Bipolar, Depression, Schizophrenia Smoking Status: Current every day smoker Past Alcohol Use History: None Reported Past Drug Use History: None Reported - Past Family History Mother Family Medical History: Cancer Father Family Medical History: Unable to Obtain General Exam - General Exam Comments Initial Comments: Constitutional: Pt appears well-developed and well-nourished. No distress. Head: Normocephalic and atraumatic. Eyes: EOM are normal. Neck: Normal range of motion. Neck supple. Cardiovascular: Normal rate, regular rhythm, S1 normal, S2 normal and normal heart sounds. Exam reveals no gallop and no friction rub. No murmur heard. Pulmonary/Chest: Effort normal and breath sounds normal. No tachypnea and no bradypnea. No respiratory distress. No wheezes or rales noted. Abdominal: Soft. Bowel sounds are normal. Pt exhibits no shifting dullness, no distension, no pulsatile liver, no fluid wave, no abdominal bruit and no ascites. There is no rigidity, no rebound, no guarding, no tenderness at McBurney's point and negative Morfin's sign. There is no tenderness. Musculoskeletal: Normal range of motion. Neurological: Pt is alert and oriented to person, place, and time. No cranial nerve deficit. Skin: Skin is warm and dry. No rash noted. Pt is not diaphoretic. No erythema. No pallor. Psychiatric: Pt has a normal mood and affect. Pt behavior is normal. Thought content normal. Limitations: no limitations Course Vital Signs 02/02/19 02/02/19 14:49 15:49 Temperature 97.8 F Pulse Rate 72 Pulse Rate [ 73 Right Sitting Pulse Oximetery ] Pulse Rate [ 69 Right Standing Pulse Oximetery ] Pulse Rate [ 68 Right Supine Pulse Oximetery ] Respiratory 18 18 Rate Blood Pressure 145/87 Blood Pressure 129/93 [Left Arm Sitting] Blood Pressure 126/92 [Left Arm Standing] Blood Pressure 119/81 [Left Arm Supine] O2 Sat by Pulse 96 Oximetry Chest Pain MDM - MDM Cardiac evaluation was ordered on patient but the patient decided to leave his medical advice. Patient was unwilling to stay and have a discussion with physician. Physician was unable to talk the patient before she left AGAINST MEDICAL ADVICE. Disposition Clinical Impression: Chest pain Disposition: Left Against Medical Advice Condition: Good Instructions (If sedation given, give patient instructions): Chest Pain (ED) Referrals: [facility] [Primary Care Provider] - 1-2 days Time of Disposition: 19:30
[2019-02-02 15:52] VITALS: BP 119/81; PULSE 68
--- NOTE | 2019-02-02 15:56 | XR ---
EXAMINATION TYPE: XR chest 2V DATE OF EXAM: 02/02/2019 COMPARISON: NONE HISTORY: Dizziness TECHNIQUE: Frontal and lateral views of the chest are obtained. FINDINGS: There is no heart failure nor confluent pneumonic infiltrate. Costophrenic angles are jayden r. Bony thorax is intact. IMPRESSION: No active cardiopulmonary disease. No change.
[2019-02-02 15:58] LABS: Appearance,Urine Clear (Clear); Basophils # (A) 0.1 k/uL (0-0.2); Basophils % (A) 1 %; Bilirubin,Urine Negative (Negative); Blood,Urine Negative (Negative); Color,Urine Light Yellow; Eosinophils # (A) 0.1 k/uL (0-0.7); Eosinophils % (A) 1 %; Glucose,Urine (UA) Negative (Negative); HCT 45.9 % (34.0-46.0); HGB 15.5 gm/dL (11.4-16.0); Ketones,Urine Negative (Negative); Leukocyte Esterase,Urine Negative (Negative); Lymphocytes # (A) 3.5 k/uL (1.0-4.8); Lymphocytes % (A) 33 %; MCH 31.1 pg (25.0-35.0); MCHC 33.7 g/dL (31.0-37.0); MCV 92.3 fL (80.0-100.0); Mean Platelet Volume 7.5; Monocytes # (A) 0.6 k/uL (0-1.0); Monocytes % (A) 6 %; Neutrophils % (A) 57 %; Nitrite,Urine Negative (Negative); PH, Urine 5.5 (5.0-8.0); Platelet Count 401 k/uL (150-450); Protein,Urine Negative (Negative); RBC 4.97 m/uL (3.80-5.40); RDW 13.3 % (11.5-15.5); Specific Gravity,Urine 1.004 (1.001-1.035); Urobilinogen,Urine <2.0 mg/dL (<2.0); WBC 10.6 k/uL (3.8-10.6)
[2019-02-02 16:16] LABS: Partial Thromboplastin Time 24.8 sec (22.0-30.0); Prothrombin Time 10.7 sec (9.0-12.0)
[2019-02-02 16:41] LABS: ALT 33 U/L (9-52); AST 27 U/L (14-36); Albumin 4.3 g/dL (3.5-5.0); Alkaline Phosphatase 71 U/L (38-126); Anion Gap 8 mmol/L; Blood Urea Nitrogen 16 mg/dL (7-17); Carbon Dioxide 28 mmol/L (22-30); Chloride 90 mmol/L (98-107); Glucose 94 mg/dL (74-99); Magnesium 1.5 mg/dL (1.6-2.3); Potassium 3.8 mmol/L (3.5-5.1); Sodium 126 mmol/L (137-145); Total Bilirubin 0.6 mg/dL (0.2-1.3); Total Protein 7.3 g/dL (6.3-8.2)
== END 2019-02-02 16:29 | disposition left against medical advice (07) ==
LOC: EC 14:45
DX: R07.9 Chest pain, unspecified (principal); R11.0 Nausea; R42 Dizziness and giddiness; I10 Essential (primary) hypertension; G47.30 Sleep apnea, unspecified; F31.9 Bipolar disorder, unspecified; F17.200 Nicotine dependence, unspecified, uncomplicated; Z79.02 Long term (current) use of antithrombotics/antiplatelets; Z79.899 Other long term (current) drug therapy; Z88.8 Allergy status to other drugs, medicaments and biological substances; Z88.0 Allergy status to penicillin; Z88.2 Allergy status to sulfonamides; Z91.041 Radiographic dye allergy status; Z95.5 Presence of coronary angioplasty implant and graft; Z99.89 Dependence on other enabling machines and devices
CPT/HCPCS: 36415; 71046; 80053; 81003; 83735; 83880; 84484; 85025; 85610; 85730; 93005; 99285

== ENCOUNTER 2020-07-10 10:49 | Emergency (ER) | payer MEDICARE, OTHER ==
[2020-07-10 11:11] VITALS: RESP 16
--- NOTE | 2020-07-10 11:30 | ED ---
Psych HPI - General Chief Complaint: Psychiatric Symptoms Stated Complaint: Hallucinations Time Seen by Provider: 07/10/20 11:10 Source: patient, EMS, RN notes reviewed Mode of arrival: EMS Limitations: no limitations - History of Present Illness Initial Comments: 54-year-old female presents emergency department via EMS from [facility] for psychiatric evaluation. Patient has been petition by staff. Staff stated that she has been thinking resident's or other people, she is having delusional thoughts, hallucinations. They also state that she believes he will come into her house and she's been talking to her kids. Patient does have history of schizophrenia. Patient states that she's had no medication changes. Denies any physical complaints. Patient has appears or chills. Patient denies being suicidal or homicidal. - Related Data Home Medications Medication Instructions Recorded Confirmed Ergocalciferol (Vitamin D2) 50,000 unit PO MO 08/03/18 07/10/20 [Drisdol] Vortioxetine Hydrobromide 20 mg PO DAILY@0600 08/05/18 07/10/20 [Trintellix] Carvedilol [Coreg] 25 mg PO BID@0600,199909/12/18 07/10/20 Omeprazole 20 mg PO DAILY@0600 09/12/18 07/10/20 Trihexyphenidyl HCl 5 mg PO BID@0600,199902/02/19 07/10/20 cloNIDine HCL [Catapres] 0.2 mg PO TID@0600,1630,199902/02/19 07/10/20 Acetaminophen [Tylenol] 650 mg PO Q8H PRN 07/10/20 07/10/20 Docusate [Colace] 100 mg PO BID PRN 07/10/20 07/10/20 Furosemide [Lasix] 40 mg PO DAILY@0600 07/10/20 07/10/20 Ibuprofen [Motrin] 400 mg PO BID PRN 07/10/20 07/10/20 LORazepam [Ativan] 0.5 mg PO TID PRN 07/10/20 07/10/20 Loperamide HCl [Imodium A-D] 2 mg PO DAILY PRN 07/10/20 07/10/20 Magnesium Citrate Lemon Solution 150 ml PO DAILY@199907/10/20 07/10/20 Multivitamins, Thera [Multivitamin 1 tab PO DAILY@1630 07/10/20 07/10/20 (formulary)] Ondansetron HCl [Zofran] 4 mg PO BID PRN 07/10/20 07/10/20 Polyethylene Glycol 3350 [Clearlax] 17 gm PO DAILY@199907/10/20 07/10/20 Prune Juice 4 oz PO DAILY@0600 07/10/20 07/10/20 Sodium Chloride Tab 1 gm PO DAILY@0607/10/20 07/10/20 amLODIPine [Norvasc] 5 mg PO DAILY@0600 07/10/20 07/10/20 fluPHENAZine HCl [fluPHENAZine HCL] 10 mg PO HS@199907/10/20 07/10/20 Allergies Allergy/AdvReac Type Severity Reaction Status Date / Time diphenhydramine Allergy Itching Verified 07/10/20 11:41 [From Benadryl] Iodinated Contrast Media Allergy Rash/Hives Verified 07/10/20 11:41 latex Allergy Rash/Hives Verified 07/10/20 11:41 Penicillins Allergy Rash/Hives Verified 07/10/20 11:41 propoxyphene Allergy Unknown Verified 07/10/20 11:41 Quinolones Allergy Rash/Hives Verified 07/10/20 11:41 Sulfa (Sulfonamide Allergy Rash/Hives Verified 07/10/20 11:41 Antibiotics) Review of Systems ROS Statement: Those systems with pertinent positive or pertinent negative responses have been documented in the HPI. ROS Other: All systems not noted in ROS Statement are negative. Past Medical History Past Medical History: Chest Pain / Angina, Hypertension, Respiratory Disorder, Sleep Apnea/CPAP/BIPAP Additional Past Medical History / Comment(s): head injury in the past, cyst on right kidney History of Any Multi-Drug Resistant Organisms: None Reported Past Surgical History: Section, Heart Catheterization, Uterine Ablation Additional Past Surgical History / Comment(s): eye surgery, lithotripsy, OVARIAN CYST REMOVED RIGHT SIDE Past Anesthesia/Blood Transfusion Reactions: No Reported Reaction Past Psychological History: Anxiety, Bipolar, Depression, Schizophrenia Smoking Status: Current every day smoker Past Alcohol Use History: None Reported Past Drug Use History: None Reported - Past Family History Mother Family Medical History: Cancer Father Family Medical History: Unable to Obtain General Exam Limitations: no limitations General appearance: alert, in no apparent distress Head exam: Present: atraumatic, normocephalic, normal inspection Eye exam: Present: normal appearance, PERRL, EOMI. Absent: scleral icterus, conjunctival injection, periorbital swelling ENT exam: Present: normal exam, normal oropharynx, mucous membranes moist Neck exam: Present: normal inspection, full ROM. Absent: tenderness, meningismus, lymphadenopathy Respiratory exam: Present: normal lung sounds bilaterally. Absent: respiratory distress, wheezes, rales, rhonchi, stridor Cardiovascular Exam: Present: regular rate, normal rhythm, normal heart sounds. Absent: systolic murmur, diastolic murmur, rubs, gallop, clicks GI/Abdominal exam: Present: soft, normal bowel sounds. Absent: distended, tenderness, guarding, rebound, rigid Neurological exam: Present: alert, oriented X3, CN II-XII intact, reflexes normal. Absent: motor sensory deficit Skin exam: Present: warm, dry, intact, normal color. Absent: rash Course Vital Signs 07/10/20 11:06 Temperature 98.2 F Pulse Rate 71 Respiratory 16 Rate Blood Pressure 123/80 O2 Sat by Pulse 95 Oximetry Medical Decision Making - Medical Decision Making 54-year-old presented from for psychiatric evaluation patient is not suicidal or homicidal she was evaluated by EPS [facility] be [facility] as discussed with psychiatrist. - Lab Data Lab Results 07/10/20 Range/Units 11:28 Urine Opiates Screen Not Detected (NotDetected) Ur Oxycodone Screen Not Detected (NotDetected) Urine Methadone Screen Not Detected (NotDetected) Ur Propoxyphene Screen Not Detected (NotDetected) Ur Barbiturates Screen Not Detected (NotDetected) U Tricyclic Antidepress Not Detected (NotDetected) Ur Phencyclidine Scrn Not Detected (NotDetected) Ur Amphetamines Screen Not Detected (NotDetected) U Methamphetamines Scrn Not Detected (NotDetected) U Benzodiazepines Scrn Not Detected (NotDetected) Urine Cocaine Screen Not Detected (NotDetected) U Marijuana (THC) Screen Not Detected (NotDetected) Disposition Clinical Impression: Chronic schizophrenia Disposition: HOME SELF-CARE Condition: Stable Additional Instructions: Please return to the Emergency Department if symptoms worsen or any other concerns. Is patient prescribed a controlled substance at d/c from ED?: No Referrals: [facility] [Primary Care Provider] - 1-2 days Time of Disposition: 13:06
[2020-07-10 12:13] LABS: Amphetamine Screen,Urine Not Detected (NotDetected); Barbiturate Screen,Urine Not Detected (NotDetected); Benzodiazepines Screen,Urine Not Detected (NotDetected); Cocaine Screen,Urine Not Detected (NotDetected); Methadone Screen, Urine Not Detected (NotDetected); Opiate Screen,Urine Not Detected (NotDetected); Oxycodone Screen, Urine Not Detected (NotDetected); Phencyclidine Screen,Urine Not Detected (NotDetected); Tricyclic Antidepressant,Urine Not Detected (NotDetected); Urn Cannabinoid Scrn Not Detected (NotDetected)
[2020-07-10 13:31] VITALS: BP 154/74; PULSE 78; TEMP 97.8
== END 2020-07-10 13:30 | disposition home or self-care (01) ==
LOC: EC 10:49
DX: F20.9 Schizophrenia, unspecified (principal); F31.9 Bipolar disorder, unspecified; F41.9 Anxiety disorder, unspecified; I10 Essential (primary) hypertension; G47.33 Obstructive sleep apnea (adult) (pediatric); F17.200 Nicotine dependence, unspecified, uncomplicated; Z95.5 Presence of coronary angioplasty implant and graft; Z79.899 Other long term (current) drug therapy; Z99.89 Dependence on other enabling machines and devices; Z88.0 Allergy status to penicillin; Z88.2 Allergy status to sulfonamides; Z88.8 Allergy status to other drugs, medicaments and biological substances; Z91.040 Latex allergy status; Z91.041 Radiographic dye allergy status
CPT/HCPCS: 80306; 82075; 99285

== ENCOUNTER 2020-07-27 09:19 | Inpatient (IN) | payer MEDICARE, MEDICAID ==
[2020-07-27] MEDS ORDERED: cloNIDine HCL 0.2 MG TAB PO STA (10:03)
--- NOTE | 2020-07-27 10:38 | ED ---
Psych HPI - General Chief Complaint: Psychiatric Symptoms Stated Complaint: mental health Time Seen by Provider: 07/27/20 09:26 Source: patient Mode of arrival: ambulatory - History of Present Illness Initial Comments: Patient is a 54-year-old female, with a psych history, hypertension, COPD, well- known to the ER, presenting to the emergency department from her assisted living facility for refusing her medications for the past 3 days. Patient is stating that she believes "her pills tasted funny and that somebody is messing with them." She states she is also hearing voices. She denies any suicidal or homicidal ideations. She denies any pain anywhere, any fever or chills. She denies any dizziness, headache, blurry vision. She has no further complaints at this time. Upon arrival to the ER, her blood pressure is elevated at 199/108, rest of vitals are normal. - Related Data Home Medications Medication Instructions Recorded Confirmed Ergocalciferol (Vitamin D2) 50,000 unit PO MO 08/03/18 07/27/20 [Drisdol] Vortioxetine Hydrobromide 20 mg PO DAILY@0600 08/05/18 07/27/20 [Trintellix] Carvedilol [Coreg] 25 mg PO BID@06,199909/12/18 07/27/20 Omeprazole 20 mg PO DAILY@0600 09/12/18 07/27/20 Trihexyphenidyl HCl 5 mg PO TID@0600,163002/02/19 07/27/20 cloNIDine HCL [Catapres] 0.2 mg PO TID@0600,163002/02/19 07/27/20 Acetaminophen [Tylenol] 650 mg PO Q8H PRN 07/10/20 07/27/20 Docusate [Colace] 100 mg PO BID PRN 07/10/20 07/27/20 Furosemide [Lasix] 40 mg PO DAILY@0600 07/10/20 07/27/20 Ibuprofen [Motrin] 400 mg PO BID PRN 07/10/20 07/27/20 Loperamide HCl [Imodium A-D] 2 mg PO DAILY PRN 07/10/20 07/27/20 Magnesium Citrate Lemon Solution 150 ml PO DAILY@199907/10/20 07/27/20 Multivitamins, Thera [Multivitamin 1 tab PO DAILY@1630 07/10/20 07/27/20 (formulary)] Ondansetron HCl [Zofran] 4 mg PO BID PRN 07/10/20 07/27/20 Polyethylene Glycol 3350 [Clearlax] 17 gm PO DAILY@199907/10/20 07/27/20 Prune Juice 4 oz PO DAILY@0600 07/10/20 07/27/20 Sodium Chloride Tab 1 gm PO DAILY@0600 07/10/20 07/27/20 amLODIPine [Norvasc] 5 mg PO DAILY@0600 07/10/20 07/27/20 Magnesium Hydroxide [Milk of 2,400 mg PO DAILY PRN 07/27/20 07/27/20 Magnesia] clonazePAM [KlonoPIN] 1 mg PO HS@199907/27/20 07/27/20 fluPHENAZine decanoate [Prolixin 0 mg IM Q7D 07/27/20 07/27/20 Decanoate] guaiFENesin SYRUP 100MG/5ML 1 dose PO DIRECTED PRN 07/27/20 07/27/20 [Robitussin] Allergies Allergy/AdvReac Type Severity Reaction Status Date / Time propoxyphene Allergy Unknown Verified 07/27/20 09:42 risperidone Allergy Unknown Verified 07/27/20 09:42 diphenhydramine AdvReac Itching Verified 07/27/20 09:42 [From Benadryl] Iodinated Contrast Media AdvReac Rash/Hives Verified 07/27/20 09:42 latex AdvReac Rash/Hives Verified 07/27/20 09:42 Penicillins AdvReac Rash/Hives Verified 07/27/20 09:42 Quinolones AdvReac Rash/Hives Verified 07/27/20 09:42 Sulfa (Sulfonamide AdvReac Rash/Hives Verified 07/27/20 09:42 Antibiotics) Review of Systems ROS Statement: Those systems with pertinent positive or pertinent negative responses have been documented in the HPI. ROS Other: All systems not noted in ROS Statement are negative. Past Medical History Past Medical History: Chest Pain / Angina, Hypertension, Respiratory Disorder, Sleep Apnea/CPAP/BIPAP Additional Past Medical History / Comment(s): head injury in the past, cyst on right kidney History of Any Multi-Drug Resistant Organisms: None Reported Past Surgical History: Section, Heart Catheterization, Uterine Ablation Additional Past Surgical History / Comment(s): eye surgery, lithotripsy, OVARIAN CYST REMOVED RIGHT SIDE Past Anesthesia/Blood Transfusion Reactions: No Reported Reaction Past Psychological History: Anxiety, Bipolar, Depression, Schizophrenia Smoking Status: Current every day smoker Past Alcohol Use History: None Reported Past Drug Use History: None Reported - Past Family History Mother Family Medical History: Cancer Father Family Medical History: Unable to Obtain General Exam - General Exam Comments Initial Comments: GENERAL: Patient is well-developed and well-nourished. Patient is nontoxic and in no a cute distress. HEAD: Atraumatic, normocephalic. EYES: Pupils equal round and reactive to light, extraocular movements intact, sclera anicteric, conjunctiva are normal. Eyelids were unremarkable. ENT: TMs normal, nares patent, oropharynx clear without exudates. Moist mucous membranes. NECK: Normal range of motion, supple without lymphadenopathy or JVD. LUNGS: Unlabored respirations. Breath sounds clear to auscultation bilaterally and equal. No wheezes rales or rhonchi. HEART: Regular rate and rhythm without murmurs, rubs or gallops. ABDOMEN: Soft, nontender, normoactive bowel sounds. No guarding, no rebound. No masses appreciated. : Deferred MUSCULOSKELETAL: Normal extremities with adequate strength and normal range of motion, no pitting or edema. No clubbing or cyanosis. NEUROLOGICAL: Patient is alert and oriented x 3. Motor and sensory are also intact. Cranial nerves II through XII grossly intact. Symmetrical smile. Normal speech, normal gait. PSYCH: Seems very anxious SKIN: Warm, Dry, normal turgor, no rashes or lesions noted. Limitations: no limitations Course Vital Signs 07/27/20 07/27/20 09:27 10:39 Temperature 98.2 F Pulse Rate 88 89 Respiratory 18 18 Rate Blood Pressure 199/108 173/83 O2 Sat by Pulse 96 97 Oximetry Medical Decision Making - Medical Decision Making Patient is a 54-year-old female here with psych history, hypertension, presenting after refusing her medications for the last 3 days. She denies any suicidal or homicidal thoughts. Respiratory exam is unremarkable. Patient's blood pressure was elevated upon arrival, 199/108, I did give her 0.2 clonidine which did decrease her blood pressure 173/83. Patient was evaluated by CPS. Patient will be admitted to the psych unit. - Lab Data Lab Results 07/27/20 Range/Units 10:03 Urine Color Colorless Urine Appearance Clear (Clear) Urine pH 6.5 (5.0-8.0) Ur Specific [place] 1.003 (1.001-1.035) Urine Protein Negative (Negative) Urine Glucose (UA) Negative (Negative) Urine Ketones Negative (Negative) Urine Blood Negative (Negative) Urine Nitrite Negative (Negative) Urine Bilirubin Negative (Negative) Urine Urobilinogen <2.0 (<2.0) mg/dL Ur Leukocyte Esterase Negative (Negative) Urine Opiates Screen Not Detected (NotDetected) Ur Oxycodone Screen Not Detected (NotDetected) Urine Methadone Screen Not Detected (NotDetected) Ur Propoxyphene Screen Not Detected (NotDetected) Ur Barbiturates Screen Not Detected (NotDetected) U Tricyclic Antidepress Not Detected (NotDetected) Ur Phencyclidine Scrn Not Detected (NotDetected) Ur Amphetamines Screen Not Detected (NotDetected) U Methamphetamines Scrn Not Detected (NotDetected) U Benzodiazepines Scrn Not Detected (NotDetected) Urine Cocaine Screen Not Detected (NotDetected) U Marijuana (THC) Screen Not Detected (NotDetected) Disposition Clinical Impression: Acute anxiety Disposition: TRANSFER TO PSYCH HOSP/UNIT Condition: Stable Decision Date: 07/27/20 Decision Time: 13:32
[2020-07-27 10:39] LABS: Amphetamine Screen,Urine Not Detected (NotDetected); Barbiturate Screen,Urine Not Detected (NotDetected); Benzodiazepines Screen,Urine Not Detected (NotDetected); Cocaine Screen,Urine Not Detected (NotDetected); Methadone Screen, Urine Not Detected (NotDetected); Opiate Screen,Urine Not Detected (NotDetected); Oxycodone Screen, Urine Not Detected (NotDetected); Phencyclidine Screen,Urine Not Detected (NotDetected); Tricyclic Antidepressant,Urine Not Detected (NotDetected); Urn Cannabinoid Scrn Not Detected (NotDetected)
[2020-07-27 10:52] LABS: Appearance,Urine Clear (Clear); Bilirubin,Urine Negative (Negative); Blood,Urine Negative (Negative); Color,Urine Colorless; Glucose,Urine (UA) Negative (Negative); Ketones,Urine Negative (Negative); Leukocyte Esterase,Urine Negative (Negative); Nitrite,Urine Negative (Negative); PH, Urine 6.5 (5.0-8.0); Protein,Urine Negative (Negative); Specific Gravity,Urine 1.003 (1.001-1.035); Urobilinogen,Urine <2.0 mg/dL (<2.0)
[2020-07-27] MEDS ORDERED: ONDANSETRON 4 MG TAB PO PRN (13:58)
[2020-07-27] MEDS ORDERED: ACETAMINOPHEN TAB 325 MG TAB PO PRN (13:58)
[2020-07-27] MEDS ORDERED: DOCUSATE 100 MG CAP PO PRN (13:58)
[2020-07-27] MEDS ORDERED: IBUPROFEN 400 MG TAB PO PRN (13:58)
[2020-07-27] MEDS ORDERED: LOPERAMIDE 2 MG CAP PO PRN (13:58)
[2020-07-27] MEDS ORDERED: MAGNESIUM HYDROXIDE 2,400 MG/10 ML CUP PO PRN (13:58)
[2020-07-27] MEDS ORDERED: MAGNESIUM CITRATE 296 ML BOTTLE PO PRN (14:08)
[2020-07-27] MEDS ORDERED: ZIPRASIDONE 20 MG VIAL IM PRN (14:09)
[2020-07-27] MEDS ORDERED: LORazepam 1 MG TAB PO PRN (14:09)
[2020-07-27] MEDS ORDERED: LORazepam 2 MG/ML INJ IM PRN (14:12)
[2020-07-27] MEDS: NICOTINE 14MG/24HR PATCH TRANSDERM SCH (16:03)
[2020-07-27] MEDS: clonazePAM 1 MG TAB PO SCH (16:04)
[2020-07-27] MEDS: ERGOCALCIFEROL 50,000 UNIT CAP PO SCH (16:06)
[2020-07-27] MEDS: cloNIDine HCL 0.2 MG TAB PO SCH ×2 (16:07→20:18)
[2020-07-27] MEDS: MULTIVITAMINS, THERA 1 EACH TAB PO SCH (16:07)
[2020-07-27] MEDS: carvediloL 12.5 MG TAB PO SCH (20:11)
[2020-07-27] MEDS: polyethylene glycoL 3350 17 GM POWD.PACK PO SCH (20:11)
[2020-07-27] MEDS: TRIHEXYPHENIDYL 2 MG TAB PO SCH (20:19)
--- NOTE | 2020-07-28 03:54 | P.CONS ---
History of Present Illness - Reason for Consult Consult date: 07/28/20 - History of Present Illness Patient is a 54-year-old female with a PMH of hypertension and COPD who was sent to the emergency room from her assisted living facility after the patient refused to take her medications for several days. The patient had noted that she was hearing voices and that she believed someone was tampering with her medications. The patient was subsequently admitted to the mental health unit where she was seen and evaluated. The patient reported feeling somewhat the same and noted that she is "not able to think" though was not able to elaborate further on that. She denied any active complaints however. She denied chest pain, shortness of fever, chills, nausea, vomiting, abdominal pain, or diarrhea. The patient's urine toxicology in the emergency room was unremarkable along with a UA that was also unremarkable. Review of Systems Pertinent positives and negatives as discussed in HPI, a complete review of systems was performed and all other systems are negative. Past Medical History Past Medical History: Chest Pain / Angina, Hypertension, Respiratory Disorder, Sleep Apnea/CPAP/BIPAP Additional Past Medical History / Comment(s): head injury in the past, cyst on right kidney History of Any Multi-Drug Resistant Organisms: None Reported Past Surgical History: Section, Heart Catheterization, Uterine Ablation Additional Past Surgical History / Comment(s): eye surgery, lithotripsy, OVARIAN CYST REMOVED RIGHT SIDE Past Anesthesia/Blood Transfusion Reactions: No Reported Reaction Past Psychological History: Anxiety, Bipolar, Depression, Schizophrenia Additional Psychological History / Comment(s): pt only states that she has depression Smoking Status: Current every day smoker Past Alcohol Use History: None Reported Past Drug Use History: None Reported Additional Drug Use History / Comment(s): Pt's. UDS is positive for opiates and methamphetamines. - Past Family History Mother Family Medical History: Cancer Father Family Medical History: Unable to Obtain Medications and Allergies Home Medications Medication Instructions Recorded Confirmed Type Ergocalciferol (Vitamin D2) 50,000 unit PO MO 08/03/18 07/27/20 History [Drisdol] Vortioxetine Hydrobromide 20 mg PO DAILY@0600 08/05/18 07/27/20 History [Trintellix] Carvedilol [Coreg] 25 mg PO BID@0600,199909/12/18 07/27/20 History Omeprazole 20 mg PO DAILY@0600 09/12/18 07/27/20 History Trihexyphenidyl HCl 5 mg PO TID@0600,163,199902/02/19 07/27/20 History cloNIDine HCL [Catapres] 0.2 mg PO TID@0600,163,199902/02/19 07/27/20 History Acetaminophen [Tylenol] 650 mg PO Q8H PRN 07/10/20 07/27/20 History Docusate [Colace] 100 mg PO BID PRN 07/10/20 07/27/20 History Furosemide [Lasix] 40 mg PO DAILY@0600 07/10/20 07/27/20 History Ibuprofen [Motrin] 400 mg PO BID PRN 07/10/20 07/27/20 History Loperamide HCl [Imodium A-D] 2 mg PO DAILY PRN 07/10/20 07/27/20 History Magnesium Citrate Lemon Solution 150 ml PO DAILY@199907/10/20 07/27/20 History Multivitamins, Thera [Multivitamin 1 tab PO DAILY@162907/10/20 07/27/20 History (formulary)] Ondansetron HCl [Zofran] 4 mg PO BID PRN 07/10/20 07/27/20 History Polyethylene Glycol 3350 [Clearlax] 17 gm PO DAILY@199907/10/20 07/27/20 History Prune Juice 4 oz PO DAILY@0600 07/10/20 07/27/20 History Sodium Chloride Tab 1 gm PO DAILY@0600 07/10/20 07/27/20 History amLODIPine [Norvasc] 5 mg PO DAILY@0600 07/10/20 07/27/20 History Magnesium Hydroxide [Milk of 2,400 mg PO DAILY PRN 07/27/20 07/27/20 History Magnesia] clonazePAM [KlonoPIN] 1 mg PO HS@199907/27/20 07/27/20 History fluPHENAZine decanoate [Prolixin 0 mg IM Q7D 07/27/20 07/27/20 History Decanoate] guaiFENesin SYRUP 100MG/5ML 1 dose PO DIRECTED PRN 07/27/20 07/27/20 History [Robitussin] Allergies Allergy/AdvReac Type Severity Reaction Status Date / Time propoxyphene Allergy Unknown Verified 07/27/20 14:27 risperidone Allergy Unknown Verified 07/27/20 14:27 diphenhydramine AdvReac Itching Verified 07/27/20 14:27 [From Benadryl] Iodinated Contrast Media AdvReac Rash/Hives Verified 07/27/20 14:27 latex AdvReac Rash/Hives Verified 07/27/20 14:27 Penicillins AdvReac Rash/Hives Verified 07/27/20 14:27 Quinolones AdvReac Rash/Hives Verified 07/27/20 14:27 Sulfa (Sulfonamide AdvReac Rash/Hives Verified 07/27/20 14:27 Antibiotics) Physical Exam Vitals: Vital Signs Temp Pulse Pulse Resp BP BP BP 07/27/20 21:48 88 113/58 07/27/20 20:11 102 H 200/76 07/27/20 16:09 95 179/102 07/27/20 14:30 99.0 F 88 18 153/95 07/27/20 14:28 97.9 F 67 18 150/88 07/27/20 10:39 89 18 173/83 07/27/20 09:27 98.2 F 88 18 199/108 Pulse Ox 07/27/20 21:48 07/27/20 20:11 07/27/20 16:09 07/27/20 14:30 94 L 07/27/20 14:28 96 07/27/20 10:39 97 07/27/20 09:27 96 Intake and Output 07/27/20 07/27/20 07/28/20 14:59 22:59 06:59 Other: Weight 99.8 kg General: non toxic, no distress, appears at stated age, obese Derm: no unusual rashes/lesions no unusual ecchymoses, warm, dry Head: atraumatic, normocephalic, symmetric Eyes: EOMI, no lid lag, anicteric sclera, pupils equal round reactive to light ENT: Nose and ears atraumatic, no thrush, no pharyngeal erythema Neck: No thyromegaly, no cervical lymphadenopathy, trachea midline, supple Mouth: no lip lesion, mucus membranes moist Cardiovascular: S1S2 reg, no murmur, positive posterior tibial pulse bilateral, no edema, capillary refill less than 2 seconds Lungs: CTA bilateral, no rhonchi, no rales , no accessory muscle use Abdominal: soft, nontender to palpation, no guarding, no appreciable organomegaly, normal bowel sounds Ext: no gross muscle atrophy, muscle strength 5 out of 5 in all 4 extremities grossly, no contractures, Neuro: CN II-XI grossly intact, light touch intact all 4 extremities, finger to nose within normal limits, Psych: Alert, oriented, withdrawn affect Assessment and Plan Plan: Hypertension -Continue with home meds Psychosis -As per psychiatry Thank you for allowing us to participate in the care of this patient. We will follow peripherally. Do not hesitate to contact us with questions. Someone can be reached from the [facility] hospitalist group at all hours of the day at [phone].
[2020-07-28] MEDS ORDERED: SODIUM CHLORIDE TAB 1 GM TAB PO SCH (06:00)
[2020-07-28] MEDS ORDERED: PRUNE JUICE PO SCH (06:00)
[2020-07-28] MEDS ORDERED: FUROSEMIDE 40 MG TAB PO SCH (06:00)
[2020-07-28] MEDS ORDERED: PANTOPRAZOLE 40 MG TABLET PO SCH (06:00)
[2020-07-28] MEDS ORDERED: amLODIPine 5 MG TAB PO SCH (06:00)
[2020-07-28] MEDS: cloNIDine HCL 0.2 MG TAB PO SCH ×3 (08:11→20:23)
[2020-07-28] MEDS: carvediloL 12.5 MG TAB PO SCH ×2 (08:11→20:22)
[2020-07-28] MEDS: NICOTINE 14MG/24HR PATCH TRANSDERM SCH (08:12)
[2020-07-28] MEDS: TRIHEXYPHENIDYL 2 MG TAB PO SCH ×2 (08:13→20:22)
[2020-07-28 09:38] LABS: ALT 26 U/L (4-34); AST 33 U/L (14-36); African American GFR (CKD) >90 (>60 ml/min/1.73 sqM); Albumin 4.2 g/dL (3.5-5.0); Alkaline Phosphatase 103 U/L (38-126); Anion Gap 9 mmol/L; Blood Urea Nitrogen 10 mg/dL (7-17); Calcium 9.8 mg/dL (8.4-10.2); Carbon Dioxide 23 mmol/L (22-30); Chloride 103 mmol/L (98-107); Cholesterol 188 mg/dL (<200); Glucose 234 mg/dL (74-99); HDL Cholesterol 41 mg/dL (40-60); LDL Cholesterol,Calculated 127 mg/dL (0-99); Non-African American GFR(CKD) 84 (>60 ml/min/1.73 sqM); Potassium 4.3 mmol/L (3.5-5.1); Sodium 135 mmol/L (137-145); Total Bilirubin 0.6 mg/dL (0.2-1.3); Total Protein 7.5 g/dL (6.3-8.2); Triglycerides 99 mg/dL (<150)
[2020-07-28 09:47] LABS: Basophils # (A) 0.1 k/uL (0-0.2); Basophils % (A) 1 %; Eosinophils # (A) 0.1 k/uL (0-0.7); Eosinophils % (A) 1 %; HGB 18.2 gm/dL (11.4-16.0); Lymphocytes # (A) 2.1 k/uL (1.0-4.8); Lymphocytes % (A) 21 %; MCH 32.6 pg (25.0-35.0); MCHC 33.1 g/dL (31.0-37.0); MCV 98.6 fL (80.0-100.0); Monocytes # (A) 0.6 k/uL (0-1.0); Monocytes % (A) 6 %; Neutrophils # (A) 7.2 k/uL (1.3-7.7); Neutrophils % (A) 71 %; Platelet Count 320 k/uL (150-450); RBC 5.59 m/uL (3.80-5.40); RDW 13.1 % (11.5-15.5); WBC 10.2 k/uL (3.8-10.6)
[2020-07-28 09:51] LABS: HCT 55.1 % (34.0-46.0)
--- NOTE | 2020-07-28 12:49 | HP ---
HISTORY AND PHYSICAL DATE OF ADMISSION: 07/27/2020 DATE OF EVALUATION: 07/28/2020 IDENTIFYING DATA: Patient is 54, female, who has been living at [facility]. Patient has a public guardian and she is receiving social security disability. HISTORY OF PRESENT ILLNESS: Patient presented to the emergency room with delusional thinking that someone in her [facility] is going to harm her. Patient has been noncompliant with the medication for the last couple of days as she thinking that "They poisoned my medication." She claims that [place] is actually shutdown and they are being sued because "of negligence." She denied having any auditory hallucination. However, she stated that she is scared that someone will hurt her to the point that she did not shower for at least 4 or 5 days and she claims that the other resident in [facility] are watching her when she showered and they are stealing her identity then she said "I am just here until you find another place for me. I don't want to go back to [place]." The patient was refusing to answer a lot of question, saying "I rather not answer this question ""especially when it comes to her substance abuse history or her social history." Patient stated that she did remember me from 15 years ago. However, when I did tell her that she was here under my care in 2016, she get very agitated and irritable and said "I am not demented, I know that it was 15 years ago." She claims that she has been overwhelmed because "there is people outside your office talking about me. I can hear them." When I did ask her is this is auditory hallucination, she said no."I do see people." Patient was very somatic, preoccupied, complaining of nausea, headache, back pain, dizzy, lightheaded, saying "the nurse gave me very bad medication this morning, that is why I am having dizzy spells."" Despite that, she denied any auditory hallucination. She did report auditory hallucination to the ER physician. Patient stated that she did contact the [employer] at least twice over the last week due to her increased delusional thinking toward the [facility] facility. She was last seen by Dr. Dickerson at [facility] on July 20 and at that time, she was verbalizing persecutory delusional thinking in addition to visual hallucination. Patient was very paranoia and suspicious kept asking me more than once, if there is camera in my office recording her conversation Her current psychotropic medications according to the [facility]: 1. Prolixin Decanoate 50 mg IM every week. Her next injection is due on July 29. 2. Klonopin 1 mg at bedtime for sleep. 3. Artane 5 mg 1 tablets 3 times a day. 4. Trintellix 20 mg daily for anxiety and depression. MEDICAL HISTORY: Patient has been in and out of the ER so often over the last couple of months. Her current medical problem is hypertension, COPD, history of sleep apnea, history of closed head injury in the past. History of cyst on her right kidney. PAST SURGICAL HISTORY: section, cardiac catheterization, uterine ablation, eye surgery, ovarian cyst removed from the right side. ALLERGY:: RISPERDAL, BENADRYL, PROPOXYPHENE, SULFA, PENICILLIN, LATEX, IODINE. HOME MEDICATION: For her medical issue, vitamin D2, Coreg 20 mg twice a day, omeprazole, Catapres or clonidine 0.2 three times a day, Lasix 40 mg daily, Motrin 400 twice a day as needed, Imodium as needed, multivitamin, Zofran as needed, Norvasc 5 mg daily. PAST PSYCHIATRIC HISTORY: According to the patient, her last psych hospitalization was 15 years ago; however, according to our record, she was under my care in November 2016. At that time she was using [place], cocaine and she was admitted with delusional thinking. Patient has extensive history of mental illness with multiple inpatient psych hospitalization. Her last psych hospitalization was November 24, 2016. She has been seen at [facility] and she was with the ACT team for a couple of years before she was placed at [facility]. Patient has history of poor compliance with medication. Her previous psychotropic medications that she did try in the past including Latuda, Risperdal Consta, Haldol decanoate, Lamictal, phenotype, Abilify, Tegretol, according to her "nothing working." There is no previous suicidal attempt. SUBSTANCE ABUSE HISTORY: Currently, she denied any substance abuse history, but from the notes from [facility], it seems to me that she did fill the prescription for 90 tablets of lorazepam on 06/10/2020, but she stated that she quit taking it as it did not make her feel good and she did was imagining that people are shooting outside the facility. There is history of opiate use, cocaine use, but currently for the last couple of years according to her, she does not use any pain medication or cocaine. She said "Even I don't drink alcohol, just I smoked 2 or 3 packs a day." UDS negative SOCIAL HISTORY: Patient was for 18 years, ended by divorce 10 years ago. She is a mother of 5 grown-up children. 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 She is on social security disability and she has a public guardian and currently she is living at [facility]. FAMILY HISTORY OF PSYCHIATRIC ILLNESS: The patient said "I rather not answer this question." MENTAL STATUS EXAMINATION: At the time of this evaluation, patient is a morbidly obese female, wearing hospital gown. Poor grooming and poor hygiene. The patient was very delusional, very defensive. She denied having any suicidal or homicidal ideation. She denied any auditory or visual hallucination. However, she did verbalize a lot of persecutory delusional. Also, she was very somatic, preoccupied. Her speech is increased in productivity with loose of association. Her thinking is very concrete and illogical. Her insight and judgment are impaired. Cognitive function is grossly intact. INTELLECTUAL FUNCTION: Below average. STRENGTH: Patient is on supervised facility and she has been seen at [facility]. WEAKNESS: Extensive history of mental illness and poor compliance with medication. DIAGNOSES: 1. Schizophrenia, paranoid type, versus schizoaffective disorder, depressed. 2. Nicotine dependence. 3. History of cocaine and opiate use disorder, in remission. 4. Hypertension. 5. Morbid obesity. 6. Sleep apnea. 7. Vitamin D deficiency. 8. COPD. TREATMENT PLAN: The patient was admitted to the mental health unit on voluntary basis. I will restart her back on her outpatient medication that including Prolixin Decanoate 50 mg IM every week. Klonopin 1 mg at bedtime. Artane 5 mg 3 times a day. Trintellix 20 mg daily. I will add Abilify and gradually increase it to control her delusional thinking. Patient will be encouraged to start group therapy, will call in Internal Medicine for complete medical consultation. line worker is on the board for discharge planning. MMODL / IJN: [id number] / TIA
[2020-07-28] MEDS: MULTIVITAMINS, THERA 1 EACH TAB PO SCH (16:04)
[2020-07-28 17:00] LABS: Hemoglobin A1C 6.1 % (4.0-6.0)
[2020-07-28] MEDS: clonazePAM 1 MG TAB PO SCH (20:23)
[2020-07-28] MEDS: ARIPiprazole 15 MG TAB PO SCH (20:23)
[2020-07-28] MEDS: polyethylene glycoL 3350 17 GM POWD.PACK PO SCH (20:23)
[2020-07-29] MEDS: carvediloL 12.5 MG TAB PO SCH ×2 (07:50→20:26)
[2020-07-29] MEDS ORDERED: VORTIOXETINE HYDROBROMIDE 20 MG TABLET PO SCH (09:00)
[2020-07-29] MEDS: NICOTINE 14MG/24HR PATCH TRANSDERM SCH (09:21)
[2020-07-29] MEDS: cloNIDine HCL 0.2 MG TAB PO SCH ×3 (09:22→20:26)
[2020-07-29] MEDS: fluPHENAZine DECANOATE 25 MG/ML 5ML MDV IM SCH (09:24)
[2020-07-29] MEDS: amLODIPine 5 MG TAB PO SCH (09:55)
[2020-07-29] MEDS: TRIHEXYPHENIDYL 2 MG TAB PO SCH ×2 (09:55→20:44)
[2020-07-29] MEDS: FUROSEMIDE 40 MG TAB PO SCH (09:55)
[2020-07-29] MEDS: PANTOPRAZOLE 40 MG TABLET PO SCH (09:55)
[2020-07-29] MEDS: SODIUM CHLORIDE TAB 1 GM TAB PO SCH (09:55)
--- NOTE | 2020-07-29 10:52 | P.PN ---
Progress Note - Text Progress Note Date: 07/29/20 I reviewed medical records ,did interview patient and case was discussed in treatment team I reviewed medical consult ((Assessment and Plan Plan: Hypertension -Continue with home meds Psychosis -As per psychiatry) PATIENT IS REFUSING HER MEDICATIONS :refused Norvasc ,Lasix ,Klonopin and Abilify Slept 7 hours , no participation in any groups,no interaction with other patients TODAY VITALS: P:92,P:14,BP:155/70 INTERVAL : patient was walking in [place] and agreed to follow me to office, was very irritable demanding to be discharged saying "I signed voluntary admission and I want to leave today"when I tried to discuss her lack of compliance with medications ,she was very defensive ,agitated ,loud ,claimed that she does not need Lasix or Norvasc and she is not taking any other anti-psychotic medications ,also she asked me to put her on Prolixin tablet because "Injection did paralyse me" Mental status exam: Patient was wearing his own clothing, poor hygiene ,unkept,paranoia ,suspicious ,staring fixated look ,guarded and evasive ,denies any hallucinations but seems responding to internal cue,endorses persecutory delusion saying "someone is messing with my food and water,I think they put crack in it"irritable mood ,denies any suicidal or homicidal ideation,insight and judgment are limited ASSESSMENT :Schizoaffective disorder,hx of polysubstance use disorder PLAN: Patient continues to meet criteria for inpatient psychiatric admission for symptom stabilization ,as patient refusing her medications ,asked to be discharged ,RN will fill petition ,I will fill PC for involuntary status ,SW has to inform patient guardian,lorena Lopez ,had Prolixin Decanoate 50 mg IM today but refused abilify ,PRN [place] for agitation
[2020-07-29] MEDS: MULTIVITAMINS, THERA 1 EACH TAB PO SCH (16:04)
[2020-07-29] MEDS: ARIPiprazole 15 MG TAB PO SCH (20:23)
[2020-07-29] MEDS: clonazePAM 1 MG TAB PO SCH (20:23)
[2020-07-29] MEDS: polyethylene glycoL 3350 17 GM POWD.PACK PO SCH (20:28)
--- NOTE | 2020-07-30 09:07 | P.PN ---
Progress Note - Text Progress Note Date: 07/30/20 I reviewed medical records ,did interview patient and case was discussed in treatment team She refused to get her Vitals this morning Slept 1 hours , trouble falling asleep, no participation in any groups,no interaction with other patients YESTERDAY: refused all AM medications ,r at night she refused Coreg and Abilify LABS: Glucose: 234,A1c 6.1 ,LDL:high 127 INTERVAL : patient was laying in bed l and agreed to follow me to office, somatic preoccupied "I have upset stomach"i tried to discuss with her option oftaking Zofran PRN but she got agitated saying "Medications do not taste right ,the nurse messing up my medications ,same did happen at [facility]",patient is disorganized ,suspicious ,paranoia ,delusional ,I tried to debt counselor her regarding her compliance with medications but she insisted that "I DO NOT NEED ALL THESE MEDICATIONS",then started talking about her estranged sister and her children and she was tearful saying "I am trying to be distant from family to protect them ,I do not have any support" Mental status exam: Patient was wearing her own clothing, poor hygiene ,unkept,paranoia ,suspicious ,staring fixated look ,guarded and evasive ,denies any hallucinations but seems responding to internal cue,endorses persecutory delusion ,hyperverbal with loose of association,denies any suicidal or homicidal ideation,insight and judgment are impaired ASSESSMENT :Schizoaffective disorder versus Schizophrenia ,hx of polysubstance use disorder PLAN: Patient continues to meet criteria for inpatient psychiatric admission for symptom stabilization ,as patient refusing her medications ,her admission changed to involuntary admission ,had Prolixin Decanoate 50 mg IM 07/29 , continue Artane ,restart Trintellix ,PRN Geodon for agitation,SW on board for discharge planning Reconsult medical doctor regarding her blood Glucose
[2020-07-30] MEDS: amLODIPine 5 MG TAB PO SCH (09:09)
[2020-07-30] MEDS: carvediloL 12.5 MG TAB PO SCH ×2 (09:10→21:45)
[2020-07-30] MEDS: cloNIDine HCL 0.2 MG TAB PO SCH ×3 (09:10→21:45)
[2020-07-30] MEDS: PANTOPRAZOLE 40 MG TABLET PO SCH (09:12)
[2020-07-30] MEDS: SODIUM CHLORIDE TAB 1 GM TAB PO SCH (09:14)
[2020-07-30 09:16] LABS: Glucose,Whole Blood 195 mg/dL (75-99)
[2020-07-30] MEDS: TRIHEXYPHENIDYL 2 MG TAB PO SCH ×3 (09:19→22:20)
[2020-07-30] MEDS: FUROSEMIDE 40 MG TAB PO SCH (09:19)
[2020-07-30] MEDS: VORTIOXETINE HYDROBROMIDE 20 MG TABLET PO SCH (09:19)
[2020-07-30] MEDS: NICOTINE 14MG/24HR PATCH TRANSDERM SCH (09:19)
[2020-07-30] MEDS: MULTIVITAMINS, THERA 1 EACH TAB PO SCH (15:56)
[2020-07-30] MEDS: polyethylene glycoL 3350 17 GM POWD.PACK PO SCH (21:43)
[2020-07-30] MEDS: ARIPiprazole 15 MG TAB PO SCH (21:45)
[2020-07-31] MEDS: carvediloL 12.5 MG TAB PO SCH ×3 (07:40→16:30)
[2020-07-31] MEDS: ARIPiprazole 15 MG TAB PO SCH ×2 (07:41→20:24)
[2020-07-31] MEDS: VORTIOXETINE HYDROBROMIDE 20 MG TABLET PO SCH (08:22)
[2020-07-31] MEDS: TRIHEXYPHENIDYL 2 MG TAB PO SCH ×2 (08:22→20:24)
[2020-07-31] MEDS: PANTOPRAZOLE 40 MG TABLET PO SCH (08:23)
[2020-07-31] MEDS: FUROSEMIDE 40 MG TAB PO SCH (08:23)
[2020-07-31] MEDS: cloNIDine HCL 0.2 MG TAB PO SCH ×3 (08:23→20:24)
[2020-07-31] MEDS: NICOTINE 14MG/24HR PATCH TRANSDERM SCH (08:23)
[2020-07-31] MEDS: amLODIPine 5 MG TAB PO SCH (08:23)
[2020-07-31] MEDS: SODIUM CHLORIDE TAB 1 GM TAB PO SCH (08:23)
--- NOTE | 2020-07-31 08:46 | P.PN ---
Progress Note - Text Progress Note Date: 07/31/20 I reviewed medical records ,did interview patient and case was discussed in treatment team TODAY VITALS:P:90,BP:127/82 Slept 6 hours , was up at night, no participation in any groups,no interaction with other patients Refused all her night meds except Clonidine as well as this morning she refused all AM meds except Clonidine INTERVAL : patient was in [place] l and agreed to follow me to office, somatic preoccupied "I have low Sodium and I have to drink lot of pop or I will have seizure",illogical,bizarre ,suspicious ,paranoia and delusional as she said"I am not taking any med except clonidine and I do not want Nicotine patch ,I do not want to take heroin or cocaine " Mental status exam: Patient was wearing her own clothing, poor hygiene ,unkept,paranoia ,suspicious ,staring fixated look ,guarded and evasive ,denies any hallucinations but seems responding to internal cue,endorses persecutory delusion ,hyperverbal with loose of association,denies any suicidal or homicidal ideation,insight and judgment are impaired ASSESSMENT :Schizoaffective disorder versus Schizophrenia ,hx of polysubstance use disorder PLAN: Patient continues to meet criteria for inpatient psychiatric admission for symptom stabilization ,as patient refusing her medications ,her admission changed to involuntary admission ,had Prolixin Decanoate 50 mg IM 07/29 ,according to [facility] she has to be on weekly Prolixin Decanoate, continue Artane ,Trintellix for mood ,PRBuzz Cook for agitation,SW on board for discharge planning,waiting for probate court hearing
[2020-07-31] MEDS: MULTIVITAMINS, THERA 1 EACH TAB PO SCH (16:30)
[2020-07-31] MEDS: polyethylene glycoL 3350 17 GM POWD.PACK PO SCH (20:24)
[2020-08-01] MEDS: cloNIDine HCL 0.2 MG TAB PO SCH ×3 (07:49→20:21)
[2020-08-01] MEDS: carvediloL 12.5 MG TAB PO SCH ×3 (08:06→20:19)
[2020-08-01] MEDS: amLODIPine 5 MG TAB PO SCH (08:06)
[2020-08-01] MEDS: VORTIOXETINE HYDROBROMIDE 20 MG TABLET PO SCH (08:06)
[2020-08-01] MEDS: SODIUM CHLORIDE TAB 1 GM TAB PO SCH (08:06)
[2020-08-01] MEDS: PANTOPRAZOLE 40 MG TABLET PO SCH (08:06)
[2020-08-01] MEDS: NICOTINE 14MG/24HR PATCH TRANSDERM SCH (08:06)
[2020-08-01] MEDS: FUROSEMIDE 40 MG TAB PO SCH (08:06)
[2020-08-01] MEDS: TRIHEXYPHENIDYL 2 MG TAB PO SCH ×2 (08:06→20:18)
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
--- NOTE | 2020-08-01 11:18 | P.PN ---
Subjective Progress Note Date: 08/01/20 Principal diagnosis: SCHIZOAFFECTIVE DIS SUBJECTIVE:Who are you and are you going to give me covid? OBJECTIVE: Vital signs:heart rate is elevated at 142 but in general she is not cooperative with VSigns Labs:her blood sugar runs near 200 Staff report:she is refusing to take medications she slept about 6 hours last night,she is bizarre , disheveled, has to be encouraged to shower, suspicious illogical, paranoid and has not been attending groups Medications:Prolixin decanoate 50 mg given on 07 29, prn ativan Mental status:The patient is oriented x4 gait and station are normal eye contact good evidence of responding to voices or delusions:She was anxious about getting C ovid from me and insisted on leaving the door to the office open and sitting near the door so seemed a little over cautious behaviour:she was not aggressive but was hesitant to engage insight:she could not give me clear reasons she was here or what she might be trying to gain from her stay. She said that she has been in and out for most of her life but that it has been about 15 years since her last hospitalization. cognitive funtion:Her answers fit the questions but were brief and vague affect: flat ASSESSMENT:Her shot should be kicking in soon but she is still paranoid PLAN:No change Objective - Vital Signs Vital signs: Vital Signs Temp 98.1 F 07/28/20 06:50 Pulse 142 H 08/01/20 07:45 Resp 14 07/28/20 06:50 BP 118/74 07/31/20 20:28 Pulse Ox 94 L 07/27/20 14:30 - Labs CBC & Chem 7: 07/28/20 09:03 07/28/20 09:03
[2020-08-01] MEDS: MULTIVITAMINS, THERA 1 EACH TAB PO SCH (16:27)
[2020-08-01] MEDS: ARIPiprazole 15 MG TAB PO SCH (19:25)
[2020-08-01] MEDS: polyethylene glycoL 3350 17 GM POWD.PACK PO SCH (20:18)
[2020-08-02] MEDS: cloNIDine HCL 0.2 MG TAB PO SCH ×3 (07:34→20:21)
[2020-08-02] MEDS: PANTOPRAZOLE 40 MG TABLET PO SCH (07:35)
[2020-08-02] MEDS: carvediloL 12.5 MG TAB PO SCH ×3 (07:35→20:22)
[2020-08-02] MEDS: TRIHEXYPHENIDYL 2 MG TAB PO SCH ×2 (07:36→20:20)
[2020-08-02] MEDS: NICOTINE 14MG/24HR PATCH TRANSDERM SCH (07:36)
[2020-08-02] MEDS: VORTIOXETINE HYDROBROMIDE 20 MG TABLET PO SCH (07:36)
[2020-08-02] MEDS: FUROSEMIDE 40 MG TAB PO SCH (07:36)
[2020-08-02] MEDS: SODIUM CHLORIDE TAB 1 GM TAB PO SCH (07:36)
[2020-08-02] MEDS: amLODIPine 5 MG TAB PO SCH (07:36)
--- NOTE | 2020-08-02 13:32 | P.PN ---
Subjective Progress Note Date: 08/02/20 Principal diagnosis: SCHIZOAFFECTIVE DIS SUBJECTIVE:She began to review her need for "normal " medications by which she means non-psychiatric. Otherwise she said that everything was OK and she did not want to change anything, despite not sleeping well because she felt "funny" but she could not elaborate on what she meant. OBJECTIVE: Vital signs: temp refused resp 18 heart rate 100 blood pressure 145/98 Labs:nothing new STAFF REPORT:group report: does not attend she comes across on the unit as bizarre, blunted affect but calm, suspicious, she feels that people are lying to her, she denies suicidal or homicidal ideas MENTAL STATUS: Appearance: basic ADL'S adequate Gait and station:normal Speech:soft slow and not very productive Eye contact:poor Behavior: cooperative Affect:tense No evidence or acknowlegment of voices or delusions Orientation: good to person place and time MEDICATIONS:Abilify 15mg qhs Prolixin dec 50 mg given on 07/29 ASSESSMENT:patient is cooperative and still too anxious and suspicious PLAN: no change Objective - Vital Signs Vital signs: Vital Signs Temp 0 F L 08/01/20 19:51 Pulse 85 08/02/20 12:40 Resp 18 08/02/20 07:34 BP 145/98 08/02/20 12:40 Pulse Ox 95 08/02/20 07:34 Intake & Output 08/01/20 08/02/20 08/02/20 19:59 06:59 18:59 Weight 98.1 kg - Labs CBC & Chem 7: 07/28/20 09:03 07/28/20 09:03
[2020-08-02] MEDS: MULTIVITAMINS, THERA 1 EACH TAB PO SCH (16:38)
[2020-08-02] MEDS: ARIPiprazole 15 MG TAB PO SCH (18:29)
[2020-08-02] MEDS: polyethylene glycoL 3350 17 GM POWD.PACK PO SCH (20:14)
[2020-08-03] MEDS: cloNIDine HCL 0.2 MG TAB PO SCH ×3 (07:59→20:00)
[2020-08-03] MEDS: amLODIPine 5 MG TAB PO SCH (08:00)
[2020-08-03] MEDS: FUROSEMIDE 40 MG TAB PO SCH (08:00)
[2020-08-03] MEDS: carvediloL 12.5 MG TAB PO SCH ×2 (08:00→16:50)
[2020-08-03] MEDS: PANTOPRAZOLE 40 MG TABLET PO SCH (08:00)
[2020-08-03] MEDS: VORTIOXETINE HYDROBROMIDE 20 MG TABLET PO SCH ×2 (08:01→11:42)
[2020-08-03] MEDS: TRIHEXYPHENIDYL 2 MG TAB PO SCH ×3 (08:01→20:01)
[2020-08-03] MEDS: NICOTINE 14MG/24HR PATCH TRANSDERM SCH (08:01)
[2020-08-03] MEDS: SODIUM CHLORIDE TAB 1 GM TAB PO SCH ×3 (08:01→11:45)
[2020-08-03] MEDS: ERGOCALCIFEROL 50,000 UNIT CAP PO SCH (11:41)
--- NOTE | 2020-08-03 11:57 | P.PN ---
Progress Note - Text Progress Note Date: 08/03/20 Clinical Problems: schizophrenia, poor compliance with psychiatric treatment Interim history: I reviewed the medical record, interviewed the patient and discussed her treatment and treatment plan during team meeting. She is a 54-year-old female who has a history of a chronic and persistent mental illness. She presented to the unit voluntarily with history of increasing paranoia, paranoid delusional beliefs and auditory hallucinations. After admission to the unit refused to take her prescribed psychotropic medications and demanded to leave the unit. Dr. Adams initiated the involuntary process. This morning she met with her court appointed molding engineer and a community health program representative from [facility] and deferred the probate hearing. However, she continued to refuse to take psychotropic medications and demanded to be discharged. She would not agree to take her prescribed medications even though I explained the medications are part of her treatment plan. During team we discussed his situation and agreed to filed a demand for hearing and proceed with involuntary hospitalization. Mental status exam: She presented as a short and moderately obese female who is irritable and demanding. She made eye contact but did not appear to attend to concentrate on the interview. She had a labile facial expression. She was restless but not agitated or aggressive. Her speech was spontaneous and consistent with her mood. Her affect was irritable but not intense. She denied suicidal ideation or wishes. She did not express feeling hopeless, helpless or worthless. She expressed ideas reference, paranoid ideation and paranoid delusional thoughts. Her thinking was disorganized, incoherent and not goal directed. She denied hallucinations did not appear to be responding to internal stimuli during our interview. Assessment: She is refusing to comply with her treatment plan. She remains paranoid and delusional. Plan: Filed a demand for the probate hearing. continue her prescribed psychotropic medications including Abilify 15 mg at bedtime, Prolixin Decanoate 50 mg IM weekly, Artane 5 mg twice a day and Trintellix 20 mg daily. continue other medications including Norvasc 5 mg daily, Coreg 1525 mg twice a day,Catapres 0.2 mg 3 times a day, Lasix 40 mg daily Protonix 40 mg daily, MiraLAX 17 mg daily and sodium chloride tablets 1 mg daily. Encourage plaque compliance with both psychotropic and medical medications.
[2020-08-03] MEDS: MULTIVITAMINS, THERA 1 EACH TAB PO SCH (16:52)
[2020-08-03] MEDS: ARIPiprazole 15 MG TAB PO SCH (20:01)
[2020-08-03] MEDS: polyethylene glycoL 3350 17 GM POWD.PACK PO SCH (20:01)
[2020-08-04] MEDS: cloNIDine HCL 0.2 MG TAB PO SCH ×3 (07:04→20:14)
[2020-08-04] MEDS: PANTOPRAZOLE 40 MG TABLET PO SCH (08:47)
[2020-08-04] MEDS: carvediloL 12.5 MG TAB PO SCH ×2 (08:47→15:40)
[2020-08-04] MEDS: SODIUM CHLORIDE TAB 1 GM TAB PO SCH (08:50)
[2020-08-04] MEDS: amLODIPine 5 MG TAB PO SCH (08:53)
[2020-08-04] MEDS: FUROSEMIDE 40 MG TAB PO SCH (08:53)
[2020-08-04] MEDS: VORTIOXETINE HYDROBROMIDE 20 MG TABLET PO SCH (08:54)
[2020-08-04] MEDS: NICOTINE 14MG/24HR PATCH TRANSDERM SCH (08:54)
[2020-08-04] MEDS: TRIHEXYPHENIDYL 2 MG TAB PO SCH ×2 (08:54→20:14)
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
[2020-08-04] MEDS: MULTIVITAMINS, THERA 1 EACH TAB PO SCH (15:35)
[2020-08-04] MEDS: ARIPiprazole 15 MG TAB PO SCH (18:51)
[2020-08-04] MEDS: polyethylene glycoL 3350 17 GM POWD.PACK PO SCH (20:13)
[2020-08-05] MEDS: cloNIDine HCL 0.2 MG TAB PO SCH ×3 (06:14→20:01)
[2020-08-05] MEDS: FUROSEMIDE 40 MG TAB PO SCH (08:34)
[2020-08-05] MEDS: carvediloL 12.5 MG TAB PO SCH ×2 (08:34→17:23)
[2020-08-05] MEDS: NICOTINE 14MG/24HR PATCH TRANSDERM SCH (08:34)
[2020-08-05] MEDS: amLODIPine 5 MG TAB PO SCH (08:34)
[2020-08-05] MEDS: PANTOPRAZOLE 40 MG TABLET PO SCH (08:34)
[2020-08-05] MEDS: VORTIOXETINE HYDROBROMIDE 20 MG TABLET PO SCH (08:35)
[2020-08-05] MEDS: SODIUM CHLORIDE TAB 1 GM TAB PO SCH (08:35)
[2020-08-05] MEDS: TRIHEXYPHENIDYL 2 MG TAB PO SCH ×2 (08:35→19:58)
[2020-08-05] MEDS: fluPHENAZine DECANOATE 25 MG/ML 5ML MDV IM SCH (09:18)
--- NOTE | 2020-08-05 11:01 | P.PN ---
Progress Note - Text Progress Note Date: 08/05/20 Clinical Problems: Schizophrenia, hypertension, poor compliance with medical treatment, involuntary admission Interim history: I reviewed the medical record, interviewed the patient and discussed her treatment and treatment plan during team meeting. She has a probate hearing this morning. She continues to refuse Abilify, Artane, Coreg, Lasix and Norvasc. However, she took the 50 mg injection of Prolixin this morning. She continues to maintain that she does not require inpatient treatmen t. Treatment staff reported that she is less paranoid and irritable than on admission. Her diastolic blood pressure she stay ranged from 151-195 mmHg. The only antihypertensive she is compliant with his clonidine 0.2 mg 3 times a day. Mental status exam: She presented as a short mildly obese middle-aged female who was guarded and irritable. She made eye contact and appeared to att end to the interview. Her speech was spontaneous, stilted and loud. Her affect was irritable but not uncontrollable or inappropriate. Her thinking was concrete and associations were organized. She is no understanding of her illness or need for treatment. Assessment: She is less irritable than on admission but continues to refuse many of her oral medications but is compliant with the weekly injection of Prolixin Decanoate. Her hypertension is uncontrolled. Plan: Continue inpatient treatment. Continue Prolixin decanoate 50 mg daily. Encourage compliance with oral medications including Abilify, Artane, Coreg and Norvasc. Continue to monitor blood pressure. Social work to coordinate discharge and aftercare with community mental health. Encourage participation in therapeutic groups and activities. Evaluate clinical status response to treatment daily basis.
[2020-08-05 14:54] VITALS: BMI 40.8
[2020-08-05] MEDS: MULTIVITAMINS, THERA 1 EACH TAB PO SCH (15:07)
[2020-08-05] MEDS: polyethylene glycoL 3350 17 GM POWD.PACK PO SCH (19:58)
[2020-08-05] MEDS: ARIPiprazole 15 MG TAB PO SCH (19:58)
[2020-08-06] MEDS: cloNIDine HCL 0.2 MG TAB PO SCH ×3 (06:52→21:01)
[2020-08-06] MEDS: carvediloL 12.5 MG TAB PO SCH ×2 (09:21→16:25)
[2020-08-06] MEDS: amLODIPine 5 MG TAB PO SCH (09:21)
[2020-08-06] MEDS: LORazepam 1 MG TAB PO PRN ×2 (09:45→16:45)
[2020-08-06] MEDS: PANTOPRAZOLE 40 MG TABLET PO SCH (09:50)
[2020-08-06] MEDS: FUROSEMIDE 40 MG TAB PO SCH (09:51)
[2020-08-06] MEDS: NICOTINE 14MG/24HR PATCH TRANSDERM SCH (09:51)
[2020-08-06] MEDS: SODIUM CHLORIDE TAB 1 GM TAB PO SCH (09:52)
[2020-08-06] MEDS: TRIHEXYPHENIDYL 2 MG TAB PO SCH ×2 (09:52→20:06)
[2020-08-06] MEDS: VORTIOXETINE HYDROBROMIDE 20 MG TABLET PO SCH (09:52)
--- NOTE | 2020-08-06 11:14 | P.PN ---
Progress Note - Text Progress Note Date: 08/06/20 Clinical Problems: Schizophrenia, hypertension, poor compliance with medical treatment, involuntary admission Interim history: I reviewed the medical record, interviewed the patient and discussed her treatment and treatment plan during team meeting. Following her probate hearing yesterday she received a 30 day combined involuntary treatment order. She was acutely distressed this morning and preoccupied over her elevated blood pressure. Unlike every day since admission she agreed to take her prescribed antihypertensive medications. She continues to refuse to take Artane, Abilify, Lasix and Trintellix. Over the last 24 hours her diastolic blood pressure has ranged from 177-156 m mHg. She intermittently attends therapeutic groups and activities. She slept 5 hours last night. Mental status exam: She presented as a short moderately obese 54-year-old female who was acutely distressed. She was crying and perseverating that her blood pressure is elevated. She was less argumentative and did not expressed a belief that the antihypertensive medications we prescribed were different than those prescribed by her primary care provider. Her thinking was very concrete. She did not appear to be responding to internal stimuli. Assessment: She is showing more concerned about her physical health assigned that her psychosis may be resolving. Plan: Continue inpatient treatment. Continue Prolixin 50 mg IM weekly. Encourage compliance with all her prescribed medications in particular the antihypertensive medications. Continue to monitor vital signs. Encourage participation in therapeutic groups and activities. Evaluate clinical status response to treatment daily basis.
[2020-08-06] MEDS: MULTIVITAMINS, THERA 1 EACH TAB PO SCH (16:25)
[2020-08-06] MEDS: ARIPiprazole 15 MG TAB PO SCH (18:20)
[2020-08-06] MEDS: polyethylene glycoL 3350 17 GM POWD.PACK PO SCH (21:02)
[2020-08-07] MEDS: TRIHEXYPHENIDYL 2 MG TAB PO SCH ×2 (08:59→20:19)
[2020-08-07] MEDS: LORazepam 1 MG TAB PO PRN (09:00)
[2020-08-07] MEDS: VORTIOXETINE HYDROBROMIDE 20 MG TABLET PO SCH (09:01)
[2020-08-07] MEDS: carvediloL 12.5 MG TAB PO SCH ×2 (09:01→20:19)
[2020-08-07] MEDS: SODIUM CHLORIDE TAB 1 GM TAB PO SCH (09:01)
[2020-08-07] MEDS: cloNIDine HCL 0.2 MG TAB PO SCH ×3 (09:01→20:19)
[2020-08-07] MEDS: amLODIPine 5 MG TAB PO SCH (09:01)
[2020-08-07] MEDS: PANTOPRAZOLE 40 MG TABLET PO SCH (09:03)
[2020-08-07] MEDS: NICOTINE 14MG/24HR PATCH TRANSDERM SCH (09:04)
[2020-08-07] MEDS: FUROSEMIDE 40 MG TAB PO SCH (09:04)
--- NOTE | 2020-08-07 11:04 | P.PN ---
Progress Note - Text Progress Note Date: 08/07/20 Clinical Problems: Schizophrenia, hypertension, poor compliance with medical treatment, involuntary admission Interim history: I reviewed the medical record, interviewed the patient and discussed her treatment and treatment plan during team meeting. She was tearful intermittently during the interview as she complained about the supervision of her life. She does not believe she requires a guardian and believes that she can manage independently in the community. She remains opposed to returning to assisted living. She would not accept my explanation that we required to follow the decisions of the guardian. She repeatedly complained about the guardian and alleged that the municipal court judge has made recommendations to pose the decisions of the guardian. She is more compliant with prescribed medications. She resumed taking both Coreg and worthlessness in addition to clonidine and her hypertension is now under control. She also began taking Artane and Trintellix. She continues refused to take oral Abilify. Mental status exam: She presented as a casually groomed for moderately obese female who was pleasant on approach. She cried intermittently during interview. She made eye contact and attended to interview. The most prominent feature of the interview was the poor insight and thought disorganization. Her thinking was not fully coherent or organized. She denied hallucinations and did not appear to be responding to internal stimuli. She was much less irritable, paranoid or angry than on admission. Assessment: Her overall clinical condition has improved considerably since admission. She continued to have poor insight or understanding of her illness and her personal disabilities. Her compliance with prescribed medication has improved. She has a history of fluctuating recovery and would benefit from additional hospital days to assure that the improvement is stable. Plan: Plan for discharge on 08/10/2020. Continue safety precautions. Continue Prolixin 50 mg IM weekly. Continue other medications as prescribed. Encourage continued participation in therapeutic groups and activities. Evaluate clinical status response to treatment daily basis.
[2020-08-07] MEDS: MULTIVITAMINS, THERA 1 EACH TAB PO SCH (16:49)
[2020-08-07] MEDS: polyethylene glycoL 3350 17 GM POWD.PACK PO SCH (20:13)
[2020-08-07] MEDS: ARIPiprazole 15 MG TAB PO SCH (20:13)
[2020-08-08] MEDS: cloNIDine HCL 0.2 MG TAB PO SCH ×3 (07:41→20:08)
[2020-08-08] MEDS: amLODIPine 5 MG TAB PO SCH (07:41)
[2020-08-08] MEDS: carvediloL 12.5 MG TAB PO SCH ×2 (07:41→19:13)
[2020-08-08] MEDS: PANTOPRAZOLE 40 MG TABLET PO SCH (09:03)
[2020-08-08] MEDS: FUROSEMIDE 40 MG TAB PO SCH (09:04)
[2020-08-08] MEDS: TRIHEXYPHENIDYL 2 MG TAB PO SCH ×2 (11:28→21:10)
[2020-08-08] MEDS: VORTIOXETINE HYDROBROMIDE 20 MG TABLET PO SCH (11:28)
[2020-08-08] MEDS: SODIUM CHLORIDE TAB 1 GM TAB PO SCH (11:28)
[2020-08-08] MEDS: MULTIVITAMINS, THERA 1 EACH TAB PO SCH (15:51)
[2020-08-08] MEDS: ARIPiprazole 15 MG TAB PO SCH (19:50)
[2020-08-08] MEDS: polyethylene glycoL 3350 17 GM POWD.PACK PO SCH (20:07)
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
[2020-08-09] MEDS: FUROSEMIDE 40 MG TAB PO SCH (08:09)
[2020-08-09] MEDS: TRIHEXYPHENIDYL 2 MG TAB PO SCH ×2 (08:10→21:11)
[2020-08-09] MEDS: amLODIPine 5 MG TAB PO SCH (08:10)
[2020-08-09] MEDS: cloNIDine HCL 0.2 MG TAB PO SCH ×3 (08:10→21:11)
[2020-08-09] MEDS: SODIUM CHLORIDE TAB 1 GM TAB PO SCH (08:10)
[2020-08-09] MEDS: VORTIOXETINE HYDROBROMIDE 20 MG TABLET PO SCH (08:11)
[2020-08-09] MEDS: PANTOPRAZOLE 40 MG TABLET PO SCH (08:11)
[2020-08-09] MEDS: carvediloL 12.5 MG TAB PO SCH ×2 (08:11→19:36)
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
[2020-08-09] MEDS: MULTIVITAMINS, THERA 1 EACH TAB PO SCH (16:16)
[2020-08-09] MEDS: polyethylene glycoL 3350 17 GM POWD.PACK PO SCH (21:12)
[2020-08-10 07:11] VITALS: RESP 18; TEMP 97.8
[2020-08-10 08:32] VITALS: BP 158/86; PULSE 96
[2020-08-10] MEDS: FUROSEMIDE 40 MG TAB PO SCH (08:33)
[2020-08-10] MEDS: VORTIOXETINE HYDROBROMIDE 20 MG TABLET PO SCH (08:34)
[2020-08-10] MEDS: amLODIPine 5 MG TAB PO SCH (08:35)
[2020-08-10] MEDS: carvediloL 12.5 MG TAB PO SCH (08:35)
[2020-08-10] MEDS: cloNIDine HCL 0.2 MG TAB PO SCH (08:35)
[2020-08-10] MEDS: SODIUM CHLORIDE TAB 1 GM TAB PO SCH (08:35)
[2020-08-10] MEDS: TRIHEXYPHENIDYL 2 MG TAB PO SCH (08:36)
[2020-08-10] MEDS: PANTOPRAZOLE 40 MG TABLET PO SCH (08:39)
--- NOTE | 2020-08-10 12:33 | P.DS ---
Providers Date of admission: 07/27/20 13:33 Attending physician: Melchor Hubbard MD Consults: 07/27/20 14:09 Consult Physician Routine Consulting Provider: Ramo Physician Consult Reason/Comments: H&P and medical and HTN Do you want consulting provider notified?: Yes Primary care physician: [facility] - Discharge Diagnosis(es) (1) Schizophrenia Status: Chronic Priority: High (2) Poor compliance with medication Status: Acute Priority: High (3) Involuntary commitment Status: Acute Priority: Medium Hospital Course: HISTORY: She is a 54-year-old female who has a long history of chronic and persistent mental illness. She presented to unit involuntarily with history of increasing paranoia, paranoid delusional beliefs and auditory hallucinations. After admission to the unit she refused to take her prescribed psychotropic medication and demanded to leave the hospital. The attending psychiatrist initiated involuntary admission process. She has had multiple psychiatric hospitalization and is currently under the care of [facility] and living in an assisted living program due to the severity of her mental illness. HOSPITAL COURSE: We admitted her to the psychiatric unit initially under care of Dr. Adams. We provided a comprehensive biopsychosocial assessment. After admission, she refused her prescribed psychotropic medications. We initiated involuntary process on 08/03/2020 she met with her court appointed commercial attorney and deferred the probate hearing. The wardrobe image consultant hospitalist completed initial physical exam and medical history diagnosed hypertension with recommendation to continue her outpatient medications. In addition to refusing her psychotropic medication she was refusing her antihypertensive medications. Her blood pressure was uncontrolled until she resumed the antihypertensive that included Norvasc 5 mg daily, Lasix 40 mg daily, Coreg 25 mg twice a day and clonidine 0.2 mg 3 times a day. We restarted Prolixin Decanoate 50 mg IM weekly. After his second injection she became less paranoid and disorganized. She began to comply with her antihypertensive medication regimen. MENTAL STATUS ON DISCHARGE: At time of discharge she presented as a short marked obese middle-aged woman who was pleasant on approach. She made eye contact and attended to the interview. She had no prominent physical maladies. She had a blunted facial expression. She had slight psychomotor retardation but no abnormal involuntary movements. Her speech was spontaneous with decreased rate and rhythm. His affect was blunted but stable and appropriate. She denied suicidal ideation, wishes or homicidal ideation. She denied feeling hopeless, helpless or worthless. She did not express clear ideas reference or paranoid ideation. She did not talk about paranoid delusional beliefs that she expressed on admission. Her thinking was concrete but his associations were coherent, logical and goal directed. She did not appear to be responding to internal stimuli. DISPOSITION: Discharge back to perform an assisted living with follow-up through [facility]. [facility]2020 at 2 PM. Her discharge medications included Prolixin Decanoate 50 mg IM weekly. Patient Condition at Discharge: Stable Plan - Discharge Summary New Discharge Prescriptions: New Trihexyphenidyl [Artane] 5 mg PO BID #60 tab Continue Omeprazole 20 mg PO DAILY@0600 Carvedilol [Coreg] 25 mg PO BID@0600,1999 cloNIDine HCL [Catapres] 0.2 mg PO TID@0600,163,1999 Polyethylene Glycol 3350 [Clearlax] 17 gm PO DAILY@1999 Furosemide [Lasix] 40 mg PO DAILY@0600 amLODIPine [Norvasc] 5 mg PO DAILY@0600 Sodium Chloride Tab 1 gm PO DAILY@0600 Loperamide HCl [Imodium A-D] 2 mg PO DAILY PRN PRN Reason: Diarrhea Ibuprofen [Motrin] 400 mg PO BID PRN PRN Reason: Fever And/ Or Pain Acetaminophen [Tylenol] 650 mg PO Q8H PRN PRN Reason: Fever And/ Or Pain fluPHENAZine decanoate [Prolixin Decanoate] 0 mg IM Q7D #1 ml Vortioxetine Hydrobromide [Trintellix] 20 mg PO DAILY@0600 #30 tab Discontinued Trihexyphenidyl HCl 5 mg PO TID@0600,1630,1999 Prune Juice 4 oz PO DAILY@0600 Magnesium Citrate Lemon Solution 150 ml PO DAILY@1999 Ondansetron HCl [Zofran] 4 mg PO BID PRN PRN Reason: Nausea And Vomiting Docusate [Colace] 100 mg PO BID PRN PRN Reason: Constipation clonazePAM [KlonoPIN] 1 mg PO HS@2000 Magnesium Hydroxide [Milk of Magnesia] 2,400 mg PO DAILY PRN PRN Reason: Constipation No Action Ergocalciferol (Vitamin D2) [Drisdol] 50,000 unit PO MO Multivitamins, Thera [Multivitamin (formulary)] 1 tab PO DAILY@1630 guaiFENesin SYRUP 100MG/5ML [Robitussin] 1 dose PO DIRECTED PRN PRN Reason: Cough Discharge Medication List Ergocalciferol (Vitamin D2) [Drisdol] 50,000 unit PO MO 08/03/18 [History] Carvedilol [Coreg] 25 mg PO BID@0600,199909/12/18 [History] Omeprazole 20 mg PO DAILY@0600 09/12/18 [History] cloNIDine HCL [Catapres] 0.2 mg PO TID@0600,1630,199902/02/19 [History] Acetaminophen [Tylenol] 650 mg PO Q8H PRN 07/10/20 [History] Furosemide [Lasix] 40 mg PO DAILY@0600 07/10/20 [History] Ibuprofen [Motrin] 400 mg PO BID PRN 07/10/20 [History] Loperamide HCl [Imodium A-D] 2 mg PO DAILY PRN 07/10/20 [History] Multivitamins, Thera [Multivitamin (formulary)] 1 tab PO DAILY@1630 07/10/20 [History] Polyethylene Glycol 3350 [Clearlax] 17 gm PO DAILY@199907/10/20 [History] Sodium Chloride Tab 1 gm PO DAILY@0600 07/10/20 [History] amLODIPine [Norvasc] 5 mg PO DAILY@0600 07/10/20 [History] guaiFENesin SYRUP 100MG/5ML [Robitussin] 1 dose PO DIRECTED PRN 07/27/20 [History] Trihexyphenidyl [Artane] 5 mg PO BID #60 tab 08/10/20 [Rx] Vortioxetine Hydrobromide [Trintellix] 20 mg PO DAILY@0600 #30 tab 08/10/20 [Rx] fluPHENAZine decanoate [Prolixin Decanoate] 0 mg IM Q7D #1 ml 08/10/20 [Rx] Follow up Appointment(s)/Referral(s): [facility] [Outside] - 08/13/20 2:00 pm (08-13-20 @ 2:00 with Og at [place] 08-17-20 @ 8:[address] Velasquez by phone at [place]) [facility],Oksana Krueger [Primary Care Provider] - 1-2 days Patient Instructions/Handouts: How to Stop Smoking (DC), Schizophrenia (DC) Activity/Diet/Wound Care/Special Instructions: Activity and diet as tolerated. Avoid the use of street drugs and alcohol. Take all medications as prescribed. When you are in need of refills on your medications please contact your medical provider and/or outpatient psychiatrist to have this done. Please go to scheduled outpatient appointment for aftercare treatment. If symptoms return or become worse, call the crisis line at and/or go to the nearest emergency room for evaluation. Discharge Disposition: HOME SELF-CARE
== END 2020-08-10 09:32 | disposition home or self-care (01) | DRG 885 ==
LOC: EC 09:19 → 3MHU 13:33 → UNDODISIN 08-07 11:32
PROVIDERS: ADMIT Psychiatry & Neurology Psychiatry; ATTEND Psychiatry & Neurology Psychiatry
DX: F20.9 Schizophrenia, unspecified (principal); Z68.41 Body mass index [BMI] 40.0-44.9, adult; Z91.128 Patient's intentional underdosing of medication regimen for other reason; E55.9 Vitamin D deficiency, unspecified; E66.01 Morbid (severe) obesity due to excess calories; J44.9 Chronic obstructive pulmonary disease, unspecified; F14.11 Cocaine abuse, in remission; F11.11 Opioid abuse, in remission; F31.9 Bipolar disorder, unspecified; T46.1X6A Underdosing of calcium-channel blockers, initial encounter; T50.1X6A Underdosing of loop [high-ceiling] diuretics, initial encounter; T42.4X6A Underdosing of benzodiazepines, initial encounter; T43.596A Underdosing of other antipsychotics and neuroleptics, initial encounter; Z91.19 Patient's noncompliance with other medical treatment and regimen; F41.9 Anxiety disorder, unspecified; I10 Essential (primary) hypertension; G47.30 Sleep apnea, unspecified; F17.210 Nicotine dependence, cigarettes, uncomplicated; Z71.6 Tobacco abuse counseling; Z79.899 Other long term (current) drug therapy; Z87.448 Personal history of other diseases of urinary system; Z87.820 Personal history of traumatic brain injury; Z87.42 Personal history of other diseases of the female genital tract; Z86.69 Personal history of other diseases of the nervous system and sense organs; Z90.721 Acquired absence of ovaries, unilateral; Z98.890 Other specified postprocedural states; Z71.3 Dietary counseling and surveillance; Z98.891 History of uterine scar from previous surgery; Z88.0 Allergy status to penicillin; Z88.2 Allergy status to sulfonamides; Z88.8 Allergy status to other drugs, medicaments and biological substances; Z91.041 Radiographic dye allergy status; Y63.6 Underdosing and nonadministration of necessary drug, medicament or biological substance; Z91.040 Latex allergy status
CPT/HCPCS: 80053; 80061; 80306; 81003; 82075; 83036; 84443; 85025; 99285

== ENCOUNTER 2020-12-25 16:42 | Emergency (ER) | payer MEDICARE, MEDICAID ==
[2020-12-25 17:04] VITALS: RESP 20; TEMP 98.7
[2020-12-25] MEDS ORDERED: HYDROcodone/APAP 5-325MG 1 EACH TAB PO STA ×2 (17:08→17:09)
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
--- NOTE | 2020-12-25 18:05 | XR ---
Result: History: Back pain. Comparison: None available. Technique: 3 views of the lumbar spine. Findings: The bone mineralization is normal. Images of the lumbar spine demonstrate 5 lumbar-type vertebrae. There is no acute fracture or sublux ation. The vertebral body heights are preserved throughout the imaged lumbar spine. The vertebral e lements are in anatomic alignment. There is moderate disc and facet degenerative changes at L4-S1. T he sacroiliac joints are patent. Impression: Moderate degenerative changes without acute osseous abnormality.
--- NOTE | 2020-12-25 18:07 | XR ---
RESULT: HISTORY: pain TECHNIQUE: 2 views each of the bilateral hips were obtained. COMPARISON: None. FINDINGS: There is no acute fracture or dislocation. The bilateral hip joints are grossly preserved. IMPRESSION: No significant osseous abnormality.
--- NOTE | 2020-12-25 18:09 | XR ---
Result: Clinical History: Pain. Comparison: None available. Technique: 4 views each of the bilateral knees. Findings: Bone mineralization is appropriate for age. Right knee: No acute fracture or dislocation is seen. The visualized osseous structures are in anato shweta alignment. There is mild osteoarthritis of the medial compartment, otherwise preserved elsewhere. No significant knee joint effusion is seen. Left knee: No acute fracture or dislocation is seen. The visualized osseous structures are in anatom ic alignment. There is mild to moderate osteoarthritis of the medial compartment, otherwise preserve d elsewhere. No significant knee joint effusion is seen. Impression: Osteoarthritis without acute osseous abnormality.
--- NOTE | 2020-12-25 18:14 | XR ---
Result: Clinical History: Pain. Comparison: None available. Technique: 3 views each of the bilateral feet. FINDINGS: Right foot: No acute fracture or dislocation is seen. The visualized osseous structures are in anato shweta alignment. There is mild osteoarthritis of the medial midfoot and small plantar calcaneal entheso phyte. Left foot: No acute fracture or dislocation is seen. The visualized osseous structures are in anatom ic alignment. There is mild osteoarthritis of the medial midfoot and small plantar calcaneal entheso phyte. . IMPRESSION: Mild osteoarthritis without acute osseous abnormality.
[2020-12-25 18:59] VITALS: BP 144/79; PULSE 78
== END 2020-12-25 18:59 | disposition home or self-care (01) ==
LOC: EC 16:42
DX: M54.9 Dorsalgia, unspecified (principal); M79.605 Pain in left leg; M79.604 Pain in right leg; I10 Essential (primary) hypertension; F17.200 Nicotine dependence, unspecified, uncomplicated; F20.9 Schizophrenia, unspecified; F32.9 Major depressive disorder, single episode, unspecified; F41.9 Anxiety disorder, unspecified; G47.30 Sleep apnea, unspecified; Z88.0 Allergy status to penicillin; Z79.1 Long term (current) use of non-steroidal anti-inflammatories (NSAID)
CPT/HCPCS: 72100; 73521; 99283

== ENCOUNTER 2021-04-30 19:38 | Observation (INO) | payer MEDICARE, OTHER ==
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
[2021-04-30 21:17] LABS: Basophils # (A) 0.1 k/uL (0-0.2); Basophils % (A) 1 %; Eosinophils # (A) 0.2 k/uL (0-0.7); Eosinophils % (A) 2 %; Lymphocytes # (A) 3.2 k/uL (1.0-4.8); Lymphocytes % (A) 28 %; MCH 34.2 pg (25.0-35.0); MCHC 34.8 g/dL (31.0-37.0); MCV 98.5 fL (80.0-100.0); Mean Platelet Volume 7.9; Monocytes # (A) 0.7 k/uL (0-1.0); Monocytes % (A) 6 %; Neutrophils % (A) 62 %; Platelet Count 310 k/uL (150-450); RBC 5.57 m/uL (3.80-5.40); RDW 13.2 % (11.5-15.5); WBC 11.4 k/uL (3.8-10.6)
[2021-04-30 21:20] LABS: HCT 54.9 % (34.0-46.0); HGB 19.1 gm/dL (11.4-16.0)
[2021-04-30 21:24] LABS: ALT 27 U/L (4-34); AST 40 U/L (14-36); African American GFR (CKD) >90 (>60 ml/min/1.73 sqM); Albumin 4.5 g/dL (3.5-5.0); Alkaline Phosphatase 94 U/L (38-126); Anion Gap 12 mmol/L; Blood Urea Nitrogen 17 mg/dL (7-17); Calcium 10.2 mg/dL (8.4-10.2); Carbon Dioxide 21 mmol/L (22-30); Chloride 105 mmol/L (98-107); Glucose 196 mg/dL (74-99); Non-African American GFR(CKD) >90 (>60 ml/min/1.73 sqM); Potassium 3.1 mmol/L (3.5-5.1); Sodium 138 mmol/L (137-145); Total Bilirubin 0.8 mg/dL (0.2-1.3); Total Protein 7.7 g/dL (6.3-8.2)
[2021-04-30] MEDS ORDERED: POTASSIUM CHLORIDE ER 20 MEQ TAB.ER PO STA (21:29)
[2021-04-30] MEDS ORDERED: NALOXONE 0.4 MG/ML 1 ML VIAL IV PRN (21:47)
[2021-04-30] MEDS ORDERED: ACETAMINOPHEN TAB 325 MG TAB PO PRN (21:47)
[2021-04-30 23:34] LABS: Amorphous Sediment,Urine Rare /hpf; Appearance,Urine Clear (Clear); Bacteria,Urine Occasional /hpf; Bilirubin,Urine 1+ (Negative); Blood,Urine Negative (Negative); Color,Urine Yellow; Glucose,Urine (UA) Negative (Negative); Hyaline Casts,Urine 16 /lpf (0-2); Ketones,Urine 1+ (Negative); Leukocyte Esterase,Urine Negative (Negative); Mucus,Urine Few /hpf; Nitrite,Urine Negative (Negative); PH, Urine 5.5 (5.0-8.0); Protein,Urine 1+ (Negative); RBC,Urine 2 /hpf (0-5); Specific Gravity,Urine 1.026 (1.001-1.035); Squamous Epithelial Cell,Urine 4 /hpf (0-4); WBC,Urine 1 /hpf (0-5)
[2021-05-01 11:37] LABS: Basophils # (A) 0.1 k/uL (0-0.2); Basophils % (A) 1 %; Eosinophils # (A) 0.2 k/uL (0-0.7); Eosinophils % (A) 2 %; HCT 52.1 % (34.0-46.0); HGB 17.9 gm/dL (11.4-16.0); Lymphocytes # (A) 2.7 k/uL (1.0-4.8); Lymphocytes % (A) 28 %; MCH 33.9 pg (25.0-35.0); MCHC 34.3 g/dL (31.0-37.0); MCV 98.8 fL (80.0-100.0); Mean Platelet Volume 7.5; Monocytes # (A) 0.5 k/uL (0-1.0); Monocytes % (A) 5 %; Neutrophils % (A) 63 %; Platelet Count 273 k/uL (150-450); RBC 5.28 m/uL (3.80-5.40); RDW 13.3 % (11.5-15.5); WBC 9.7 k/uL (3.8-10.6)
[2021-05-01 12:43] LABS: African American GFR (CKD) >90 (>60 ml/min/1.73 sqM); Anion Gap 6 mmol/L; Blood Urea Nitrogen 11 mg/dL (7-17); Carbon Dioxide 25 mmol/L (22-30); Chloride 108 mmol/L (98-107); Glucose 104 mg/dL (74-99); Non-African American GFR(CKD) >90 (>60 ml/min/1.73 sqM); Potassium 3.8 mmol/L (3.5-5.1); Sodium 139 mmol/L (137-145)
[2021-05-01 14:01] VITALS: BP 137/72; PULSE 96; RESP 16; TEMP 98.2
--- NOTE | 2021-05-01 16:55 | P.HPIM ---
History of Present Illness H&P Date: 05/01/21 Chief Complaint: Brought in by law enforcement. Patient is a 55-year-old female with a known history of hypertension, obstructive sleep apnea, history of head injury, history of chest pain and cardiac catheterization with no PCI, anxiety/depression, bipolar disorder and schizophrenia and also currently everyday smoker was brought to the hospital by law enforcement for pickup order. Patient was brought to the hospital due to medication noncompliance. Patient has court ordered petition due to medication noncompliance. Patient has not been taking medications recently. Otherwise patient denies any complaints of suicidal or homicidal ideation. No hallucinations. Denied any chest pain or shortness breath. No nausea vomiting or abdominal pain. Patient states that she is having some dysuria. Denies any lower abdominal discomfort. No headache or dizziness or lightheadedness. Laboratory data showed WBC 11.4 hemoglobin 19.1 and platelets 310 Sodium 138 potassium 3.1 chloride 105 bicarb is 21 BUN 17 and creatinine 0.59 blood sugar is 196 AST 40 ALT 27 alk phos 94 and proBNP 65 Urinalysis showed 1+ ketones and 1+ protein and 1+ bilirubin and leukocyte esterase negative and WBCs 1 On admission blood pressure is 147/92 pulse is 105 respiration 20 temperature a febrile pulse ox is 95% on room air Review of Systems Constitutional: Patient denies any fever or chills . No generalized weakness or weight loss. Abdomen: Patient denied nausea vomiting and diarrhea and abdominal pain. Cardiovascular: Patient denies any chest pain or short of breath no palpitations. Respiratory: patient denied any cough or sputum production. No shortness of breath Neurologic: Patient denied any numbness or tingling headache. Musculoskeletal: Patient denies any complaints of joint swelling or deformity. Skin: Negative Psychiatric: Negative Endocrine: No heat or cold intolerance. No recent weight gain. Genitourinary: mild dysuria, no hematuria. All other 14 point ROS negative except the above Past Medical History Past Medical History: Chest Pain / Angina, Hypertension, Respiratory Disorder, Sleep Apnea/CPAP/BIPAP Additional Past Medical History / Comment(s): head injury in the past, cyst on right kidney History of Any Multi-Drug Resistant Organisms: None Reported Past Surgical History: Section, Heart Catheterization, Uterine Ablation Additional Past Surgical History / Comment(s): eye surgery, lithotripsy, OVARIAN CYST REMOVED RIGHT SIDE Past Anesthesia/Blood Transfusion Reactions: No Reported Reaction Past Psychological History: Anxiety, Bipolar, Depression, Schizophrenia Smoking Status: Current every day smoker Past Alcohol Use History: None Reported Past Drug Use History: None Reported - Past Family History Mother Family Medical History: Cancer Father Family Medical History: Unable to Obtain Medications and Allergies Home Medications Medication Instructions Recorded Confirmed Type Ergocalciferol (Vitamin D2) 1,250 mcg PO MO 08/03/18 04/30/21 History [Drisdol (50,000 Iu)] Carvedilol [Coreg] 25 mg PO BID 09/12/18 04/30/21 History Omeprazole 20 mg PO DAILY 09/12/18 04/30/21 History cloNIDine HCL [Catapres] 0.2 mg PO TID 02/02/19 04/30/21 History Acetaminophen [Tylenol] 650 mg PO Q8H PRN 07/10/20 04/30/21 History Furosemide [Lasix] 80 mg PO DAILY 07/10/20 04/30/21 History Ibuprofen [Motrin] 400 mg PO TID PRN 07/10/20 04/30/21 History Loperamide HCl [Imodium A-D] 2 mg PO DAILY PRN 07/10/20 04/30/21 History Multivitamins, Thera [Multivitamin 1 tab PO DAILY@1630 07/10/20 04/30/21 History (formulary)] Sodium Chloride Tab 1 gm PO DAILY 07/10/20 04/30/21 History amLODIPine [Norvasc] 5 mg PO DAILY 07/10/20 04/30/21 History Trihexyphenidyl [Artane] 5 mg PO BID #60 tab 08/10/20 04/30/21 Rx HYDROcodone/APAP 5-325MG [[place] 1 tab PO Q6H PRN 04/30/21 04/30/21 History 5-325] Magnesium Hydroxide [Milk of 2,400 mg PO DAILY PRN 04/30/21 04/30/21 History Magnesia] Phenyleph/Pramoxin/Glycr/W.pet 1 applic RECTAL TID PRN 04/30/21 04/30/21 History [Preparation H Cream] fluPHENAZine HCl 20 mg PO HS 04/30/21 04/30/21 History fluPHENAZine decanoate [Prolixin 50 mg IM Q7D@1200 04/30/21 04/30/21 History Decanoate] Allergies Allergy/AdvReac Type Severity Reaction Status Date / Time propoxyphene Allergy Unknown Verified 04/30/21 19:44 risperidone Allergy Unknown Verified 04/30/21 19:44 diphenhydramine AdvReac Itching Verified 04/30/21 19:44 [From Benadryl] Iodinated Contrast Media AdvReac Rash/Hives Verified 04/30/21 19:44 latex AdvReac Rash/Hives Verified 04/30/21 19:44 Penicillins AdvReac Rash/Hives Verified 04/30/21 19:44 Quinolones AdvReac Rash/Hives Verified 04/30/21 19:44 Sulfa (Sulfonamide AdvReac Rash/Hives Verified 04/30/21 19:44 Antibiotics) Physical Exam Vitals: Vital Signs Temp Pulse Pulse Resp BP BP Pulse Ox 05/01/21 09:37 95 05/01/21 08:00 98.1 F 102 H 18 120/70 88 L 05/01/21 00:28 97.9 F 87 14 141/77 86 L 04/30/21 22:40 97.8 F 91 14 138/91 95 04/30/21 22:27 77 16 101/71 98 04/30/21 19:41 98.3 F 105 H 20 147/92 95 Intake and Output 04/30/21 05/01/21 05/01/21 22:59 06:59 14:59 Output Total 400 Balance -400 Output: Urine 400 Other: Voiding Method Toilet Weight 91.943 kg PHYSICAL EXAMINATION: Patient is lying in the bed comfortably, no acute distress, awake alert and lauryn ented.. HEENT: Normocephalic. Neck is supple. Pupils reactive. Nostrils clear. Oral cavity is moist. Neck reveals no JVD, carotid bruits, or thyromegaly. CHEST EXAMINATION: Trachea is central. Symmetrical expansion. Lung caban clear to auscultation and percussion. CARDIAC: Normal S1, S2 with no gallops. No murmurs ABDOMEN: Soft. Bowel sounds normal. No organomegaly. No abdominal bruits. Extremities: reveal no edema. No clubbing or cyanosis Neurologically awake, alert, oriented x3 with well-coordinated movements. No focal deficits noted Skin: No rash or skin lesions. Psychiatric: Coperative. Nonsuicidal Musculoskeletal: No joint swelling or deformity. Normal range of motion. Results CBC & Chem 7: 05/01/21 11:24 05/01/21 11:24 Labs: Abnormal Lab Results - Last 24 Hours (Table) 04/30/21 04/30/21 04/30/21 Range/Units 20:43 20:43 23:03 WBC 11.4 H (3.8-10.6) k/uL RBC 5.57 H (3.80-5.40) m/uL Hgb 19.1 H* (11.4-16.0) gm/dL Hct 54.9 H (34.0-46.0) % Potassium 3.1 L (3.5-5.1) mmol/L Carbon Dioxide 21 L (22-30) mmol/L Glucose 196 H (74-99) mg/dL AST 40 H (14-36) U/L Urine Protein 1+ H (Negative) Urine Ketones 1+ H (Negative) Urine Bilirubin 1+ H (Negative) Amorphous Sediment Rare H (None) /hpf Urine Bacteria Occasional H (None) /hpf Hyaline Casts 16 H (0-2) /lpf Urine Mucus Few H (None) /hpf Thrombosis Risk Factor Assmnt - DVT/VTE Prophylaxis DVT/VTE Prophylaxis: Mechanical Prophylaxis ordered Assessment and Plan Assessment: Court ordered petition due to medication noncompliance Schizophrenia Hypertension uncontrolled Obstructive sleep apnea not on CPAP Previous history of cardiac catheterization no PCI History of lithotripsy Anxiety/depression, bipolar disorder Currently everyday smoker DVT prophylaxis early ambulation. Plan: Patient is being continued home blood pressure medications. Patient is currently at amlodipine 5 mg daily, Coreg 25 mg twice daily and clonidine 0.2 mg 3 times daily. Patient is also on Lasix 80 mg daily as per records. Patient has not been taking medications recently. Blood pressure is in 140s. Will start on medication with low dose. Urinalysis is negative for any infection. Gentle IV hydration and will start back on psychiatric medications. Continue with GI and DVT prophylaxis. Otherwise patient is medically stable to be transferred to inpatient psychiatric unit. Smoking cessation has been counseled. Time with Patient: Greater than 30
[2021-05-01] MEDS ORDERED: carvediloL 3.125 MG TAB PO SCH (17:30)
[2021-05-02] MEDS ORDERED: amLODIPine 5 MG TAB PO SCH (09:00)
== END 2021-05-01 20:33 ==
LOC: EC 19:38 → 4SSUR 21:47
PROVIDERS: ADMIT Hospitalist; ATTEND Hospitalist
DX: F20.9 Schizophrenia, unspecified (principal); Z91.14 Patient's other noncompliance with medication regimen; I10 Essential (primary) hypertension; G47.33 Obstructive sleep apnea (adult) (pediatric); F31.9 Bipolar disorder, unspecified; F41.9 Anxiety disorder, unspecified; D75.1 Secondary polycythemia; N39.0 Urinary tract infection, site not specified; F17.200 Nicotine dependence, unspecified, uncomplicated; Z71.6 Tobacco abuse counseling; Z79.899 Other long term (current) drug therapy; Z88.0 Allergy status to penicillin; Z88.8 Allergy status to other drugs, medicaments and biological substances; Z88.5 Allergy status to narcotic agent; Z88.1 Allergy status to other antibiotic agents; Z88.2 Allergy status to sulfonamides; Z91.041 Radiographic dye allergy status; Z91.040 Latex allergy status; Z87.828 Personal history of other (healed) physical injury and trauma; Z80.9 Family history of malignant neoplasm, unspecified
CPT/HCPCS: 99285; G0378 ×2; 36415; 80048; 80053; 81001; 82075; 83880; 85025

== ENCOUNTER 2021-05-01 20:45 | Inpatient (IN) | payer MEDICARE, MEDICAID ==
[2021-05-01] MEDS ORDERED: MAGNESIUM HYDROXIDE 2,400 MG/10 ML CUP PO PRN (21:22)
[2021-05-01] MEDS ORDERED: LORazepam 1 MG TAB PO PRN (21:22)
[2021-05-01] MEDS ORDERED: MAG HYDROX/AL HYDROX/SIMETH 30 ML CUP PO PRN (21:22)
[2021-05-01] MEDS ORDERED: [UNRECOGNIZED DRUG - OTHER] RECTAL PRN (21:27)
[2021-05-01] MEDS ORDERED: LOPERAMIDE 2 MG CAP PO PRN (21:27)
[2021-05-01] MEDS ORDERED: haloperidoL 5 MG TAB PO PRN (21:34)
[2021-05-01] MEDS ORDERED: LORazepam 2 MG/ML INJ IV PRN (21:34)
[2021-05-01] MEDS ORDERED: HALOPERIDOL LACTATE 5 MG/ML 1 ML VIAL IM PRN (21:34)
[2021-05-01] MEDS: cloNIDine HCL 0.1 MG TAB PO SCH (22:33)
[2021-05-01] MEDS ORDERED: LORazepam 2 MG/ML INJ IM PRN (23:06)
[2021-05-01 23:24] LABS: Appearance,Urine Turbid (Clear); Bacteria,Urine Many /hpf; Bilirubin,Urine Negative (Negative); Blood,Urine Trace (Negative); Color,Urine Yellow; Glucose,Urine (UA) Negative (Negative); Hyaline Casts,Urine 24 /lpf (0-2); Ketones,Urine Negative (Negative); Leukocyte Esterase,Urine Negative (Negative); Mucus,Urine Many /hpf; Nitrite,Urine Negative (Negative); PH, Urine 5.5 (5.0-8.0); Protein,Urine 1+ (Negative); RBC,Urine 6 /hpf (0-5); Specific Gravity,Urine 1.026 (1.001-1.035); Squamous Epithelial Cell,Urine 61 /hpf (0-4); WBC,Urine 4 /hpf (0-5)
[2021-05-02] MEDS: NICOTINE 14MG/24HR PATCH TRANSDERM SCH (08:10)
[2021-05-02] MEDS: TRIHEXYPHENIDYL 2 MG TAB PO SCH ×2 (08:10→20:42)
[2021-05-02] MEDS: carvediloL 3.125 MG TAB PO SCH ×2 (08:10→20:42)
[2021-05-02] MEDS: amLODIPine 5 MG TAB PO SCH (08:10)
[2021-05-02] MEDS: cloNIDine HCL 0.1 MG TAB PO SCH ×3 (08:10→21:05)
[2021-05-02] MEDS: PANTOPRAZOLE 40 MG TABLET PO SCH (08:10)
[2021-05-02 11:25] LABS: Urine Alcohol Negative (Negative); Urine Barbiturate Negative (Negative); Urine Cocaine Negative (Negative); Urine Methadone Negative (Negative); Urine Opiates Negative (Negative); Urine Phencyclidine Negative (Negative)
--- NOTE | 2021-05-02 13:28 | P.HP ---
Psychiatric H&P - . H&P Date: 05/02/21 History & Physical: Allergies Allergy/AdvReac Type Severity Reaction Status Date / Time propoxyphene Allergy Unknown Verified 05/02/21 03:44 risperidone Allergy Unknown Verified 05/02/21 03:44 diphenhydramine AdvReac Itching Verified 05/02/21 03:44 From Benadryl Iodinated Contrast Media AdvReac Rash/Hives Verified 05/02/21 03:44 latex AdvReac Rash/Hives Verified 05/02/21 03:44 Penicillins AdvReac Rash/Hives Verified 05/02/21 03:44 Quinolones AdvReac Rash/Hives Verified 05/02/21 03:44 Sulfa (Sulfonamide AdvReac Rash/Hives Verified 05/02/21 03:44 Antibiotics) Vital Signs Temp 98.2 F 05/01/21 21:00 Pulse 113 H 05/02/21 08:17 Resp 16 05/02/21 08:10 BP 147/88 05/02/21 08:17 Pulse Ox 95 05/01/21 21:00 Intake & Output 05/01/21 05/02/21 05/02/21 18:59 06:59 18:59 Weight 90.52 kg 90.52 kg Laboratory Last Values TSH 0.412 mIU/L (0.465-4.680) L 05/01/21 11:24 Free T4 1.93 ng/dL (0.78-2.19) 05/01/21 11:24 Urine Color Yellow 05/01/21 22:04 Urine Appearance Turbid (Clear) H 05/01/21 22:04 Urine pH 5.5 (5.0-8.0) 05/01/21 22:04 Ur Specific [place] 1.026 (1.001-1.035) 05/01/21 22:04 Urine Protein 1+ (Negative) H 05/01/21 22:04 Urine Glucose (UA) Negative (Negative) 05/01/21 22:04 Urine Ketones Negative (Negative) 05/01/21 22:04 Urine Blood Trace (Negative) H 05/01/21 22:04 Urine Nitrite Negative (Negative) 05/01/21 22:04 Urine Bilirubin Negative (Negative) 05/01/21 22:04 Urine Urobilinogen 4.0 mg/dL (<2.0) 05/01/21 22:04 Ur Leukocyte Esterase Negative (Negative) 05/01/21 22:04 Urine RBC 6 /hpf (0-5) H 05/01/21 22:04 Urine WBC 4 /hpf (0-5) 05/01/21 22:04 Ur Squamous Epith Cells 61 /hpf (0-4) H 05/01/21 22:04 Urine Bacteria Many /hpf (None) H 05/01/21 22:04 Hyaline Casts 24 /lpf (0-2) H 05/01/21 22:04 Urine Mucus Many /hpf (None) H 05/01/21 22:04 Urine Opiates Screen Negative ng/mL (Negative) 05/01/21 22:04 Urine Methadone Screen Negative ng/mL (Negative) 05/01/21 22:04 Ur Propoxyphene Screen Negative ng/mL (Negative) 05/01/21 22:04 Urine Barbiturates Negative ng/mL (Negative) 05/01/21 22:04 Ur Phencyclidine Scrn Negative ng/mL (Negative) 05/01/21 22:04 Ur Amphetamine Screen Negative ng/mL (Negative) 05/01/21 22:04 U Benzodiazepines Scrn Negative ng/mL (Negative) 05/01/21 22:04 Urine Cocaine Screen Negative ng/mL (Negative) 05/01/21 22:04 U Cannabinoids Screen Negative ng/mL (Negative) 05/01/21 22:04 Urine Alcohol Negative mg/dL (Negative) 05/01/21 22:04 05/02/21 13:05 IDENTIFYING DATA: Patient is a this is a 55-year-old female. She reported receiving Social Security benefits. Patient then says "I have several children HPI: Patient presented to the hospital by law enforcement for pickup order due to medication noncompliance and was described being paranoid. The patient was admitted on the medical floor for observation because she was found to have elevated blood pressure and hypokalemia. The patient was transferred into the psychiatric unit after being medically cleared. It should be noted the patient is a poor historian and difficult to engage. She states she does not want to go back to [facility]. She states " They messed with me ". Patient states "[employer] been after me for over 20 years. Patient states "I'm very smart woman ". then says " They took my money and my state ID " then says "I don't need psych medications, I'm not crazy ". Apparently the patient demonstrated having paranoia, bizarre loose initiation of thought process. Patient denies any suicidal or homicidal ideations intent or plan. At this time patient denies any auditory or visual hallucinations. Patient denies any flight of ideas racing thoughts and increased in goal directed behavior. It should be noted the patient was in this facility from 07/27/2020 to 08/10/2020. She was diagnosed with schizophrenia. She was discharged to [facility] on the Prolixin decanoate 50 mg weekly Trintellix 20 mg daily and Artane. PAST PSYCHIATRIC HISTORY: According to her records she has had multiple inpatient psychiatric admissions. She has been diagnosed with schizophrenia and bipolar disorder. There is a concern about possible schizoaffective disorder. According to her records she is ALLERGIC to Risperidone. The patient could not name all the medications that she tried before. She denies having any history of suicide attempts PMH: Hypertension, COPD, history of cardiac catheterization, sleep apnea, history of lithotripsy, most recently was treated for hypokalemia ALLERGIES: as per EMR CHEMICAL DEPENDENCY HISTORY: Patient reported smoking 1 pack of cigarettes daily. She denies drinking alcohol or using any illicit drugs. UDS was negative FAMILY PSYCHIATRIC/SUBSTANCE USE HISTORY: Could not be determined at this time due to lack of participation SOCIAL HISTORY: Patient was [place] patient states that she was living at [facility]. She reported being single. She states that she has several children. She states that she receives Social Security disability income. It should be noted the patient is difficult to engage , more details about her social history needs to be gathered over the course of her hospitalization. MENTAL STATUS EXAM: General Appearance: Patient appears to be matches stated age is alert. Difficult to engage. Patient appears to have poor hygiene and grooming. Behavior: Patient is seated without any agitated behavior. Speech: Patient's speech is fluent and nonpressured. Mood/Affect: Patient reports their mood is ' Fine" , affect is constricted but easily angered Suicidality/Homicidality: Patient denies having any homicidal ideation intent or plan. Denies any suicidal ideations intent or plan Perceptions: Patient denies any visual hallucinations and denies any auditory hallucinations Though content/process: Patient demonstrated having loose association of thought process. She also has paranoia Memory and concentration: AOX3, grossly intact for the purposes of this session. Can spell "WORLD" backwards Judgment and insight: poor STRENGTHS/WEAKNESSES: strength is that patient is undetermined. Weakness is that patient has poor judgment and is impulsive INTELLECT: average IMPRESSIONS: Schizophrenia Nicotine use disorder PLAN: -Patient is admitted accompanied by a pickup order. Patient has not signed medication consent and is placed in patient's chart. -Medications : Patient is refusing medications at this time. According to her records most recently she responded favorably to Prolixin Decanoate 50 mg. Please verify the last dose that she had received. -Ativan and Haldol PRN for agitation/aggression -Patient was informed of the risks, benefits and side effects of the medication and patient verbally consented to taking the medications. Patient signed med consent form and was placed in chart. -Internal Medicine consult to perform medical evaluation and physical. -NRT - nicotine patch -SW on board for discharge planning. Encourage patient to participate in groups to work on coping skills. ] 05/02/21 13:16 05/02/21 13:18
[2021-05-02 14:16] LABS: Hemoglobin A1C 5.7 % (4.0-6.0)
[2021-05-02] MEDS: MULTIVITAMINS, THERA 1 EACH TAB PO SCH (16:12)
[2021-05-02] MEDS: CIPROFLOXACIN HCL 500 MG TAB PO SCH (20:34)
--- NOTE | 2021-05-02 23:07 | P.CONS ---
History of Present Illness - History of Present Illness This is a pleasant 55 years old female with past medical history of schizophre chauncey, hypertension, sleep apnea, anxiety/bipolar and depression. Was referred to the hospital from the nogal for refusal to take medication she was admitted to the general medical floor yesterday and after stabilization transferred to the psychiatric unit TSH is low at 0.4 but normal free T4 at 1.9. And hemoglobin A1c normal at 5.7. Urine drug screen is negative. Patient was seen walking the hallway with no difficulty. Finding she denies chest pain or dyspnea or dizziness or palpitation. She was complaining of from dysuria and her urinalysis is showing evidence of infection. Patient was asking me to give her some Cipro because it worked for her before. Three-day dose of Cipro as provided for the patient. Review of Systems CONSTITUTIONAL: No fever, no malaise, no fatigue. HEENT: No recent visual problems or hearing problems. Denied any sore throat. CARDIOVASCULAR: No orthopnea, PND, no palpitations, no syncope. PULMONARY: No shortness of breath, no cough, no hemoptysis. GASTROINTESTINAL: No diarrhea, no nausea, no vomiting, no abdominal pain. Normoactive bowel sounds. NEUROLOGICAL: No headaches, no weakness, no numbness. HEMATOLOGICAL: Denies any bleeding or petechiae. GENITOURINARY: Denies any burning micturition, frequency, or urgency. MUSCULOSKELETAL/RHEUMATOLOGICAL: Denies any joint pain, swelling, or any muscle pain. ENDOCRINE: Denies any polyuria or polydipsia. Past Medical History Past Medical History: Chest Pain / Angina, Hypertension, Respiratory Disorder, Sleep Apnea/CPAP/BIPAP Additional Past Medical History / Comment(s): head injury in the past, cyst on right kidney History of Any Multi-Drug Resistant Organisms: None Reported Past Surgical History: Section, Heart Catheterization, Uterine Ablation Additional Past Surgical History / Comment(s): eye surgery, lithotripsy, OVARIAN CYST REMOVED RIGHT SIDE Past Anesthesia/Blood Transfusion Reactions: No Reported Reaction Smoking Status: Current every day smoker - Past Family History Mother Family Medical History: Cancer Father Family Medical History: Unable to Obtain Medications and Allergies Home Medications Medication Instructions Recorded Confirmed Type Ergocalciferol (Vitamin D2) 1,250 mcg PO MO 08/03/18 05/02/21 History [Drisdol (50,000 Iu)] Omeprazole 20 mg PO DAILY 09/12/18 05/02/21 History Acetaminophen [Tylenol] 650 mg PO Q8H PRN 07/10/20 05/02/21 History Ibuprofen [Motrin] 400 mg PO TID PRN 07/10/20 05/02/21 History Loperamide HCl [Imodium A-D] 2 mg PO DAILY PRN 07/10/20 05/02/21 History Multivitamins, Thera [Multivitamin 1 tab PO DAILY@1630 07/10/20 05/02/21 History (formulary)] amLODIPine [Norvasc] 5 mg PO DAILY 07/10/20 05/02/21 History Trihexyphenidyl [Artane] 5 mg PO BID #60 tab 08/10/20 05/02/21 Rx HYDROcodone/APAP 5-325MG [[place] 1 tab PO Q6H PRN 04/30/21 05/02/21 History 5-325] Magnesium Hydroxide [Milk of 2,400 mg PO DAILY PRN 04/30/21 05/02/21 History Magnesia] Phenyleph/Pramoxin/Glycr/W.pet 1 applic RECTAL TID PRN 04/30/21 05/02/21 History [Preparation H Cream] fluPHENAZine HCl 20 mg PO HS 04/30/21 05/02/21 History fluPHENAZine decanoate [Prolixin 50 mg IM Q7D@1200 04/30/21 05/02/21 History Decanoate] Carvedilol [Coreg] 3.125 mg PO BID #0 05/01/21 05/02/21 Rx cloNIDine HCL [Catapres] 0.1 mg PO TID #0 05/01/21 05/02/21 Rx Allergies Allergy/AdvReac Type Severity Reaction Status Date / Time propoxyphene Allergy Unknown Verified 05/02/21 03:44 risperidone Allergy Unknown Verified 05/02/21 03:44 diphenhydramine AdvReac Itching Verified 05/02/21 03:44 [From Benadryl] Iodinated Contrast Media AdvReac Rash/Hives Verified 05/02/21 03:44 latex AdvReac Rash/Hives Verified 05/02/21 03:44 Penicillins AdvReac Rash/Hives Verified 05/02/21 03:44 Quinolones AdvReac Rash/Hives Verified 05/02/21 03:44 Sulfa (Sulfonamide AdvReac Rash/Hives Verified 05/02/21 03:44 Antibiotics) Physical Exam Vitals: Vital Signs Temp Pulse Pulse Resp BP BP Pulse Ox 05/02/21 16:15 104 H 16 110/78 05/02/21 08:17 113 H 147/88 05/02/21 08:10 113 H 16 147/88 05/01/21 21:00 98.2 F 103 H 16 141/120 95 Intake and Output 05/02/21 05/02/21 05/02/21 06:59 14:59 22:59 Other: Weight 90.52 kg GENERAL: The patient is alert and oriented x3, not in any acute distress. Well developed, well nourished. HEENT: Pupils are round and equally reacting to light. EOMI. No scleral icterus. No conjunctival pallor. Normocephalic, atraumatic. No pharyngeal erythema. No thyromegaly. CARDIOVASCULAR: S1 and S2 present. No murmurs, rubs, or gallops. PULMONARY: Chest is clear to auscultation, no wheezing or crackles. ABDOMEN: Soft, nontender, nondistended, normoactive bowel sounds. No palpable organomegaly. MUSCULOSKELETAL: No joint swelling or deformity. EXTREMITIES: No cyanosis, clubbing, or pedal edema. NEUROLOGICAL: Gross neurological examination did not reveal any focal deficits. SKIN: No rashes. No petechiae Results Labs: Abnormal Lab Results - Last 24 Hours (Table) 05/01/21 05/01/21 Range/Units 11:24 22:04 TSH 0.412 L (0.465-4.680) mIU/L Urine Appearance Turbid H (Clear) Urine Protein 1+ H (Negative) Urine Blood Trace H (Negative) Urine RBC 6 H (0-5) /hpf Ur Squamous Epith Cells 61 H (0-4) /hpf Urine Bacteria Many H (None) /hpf Hyaline Casts 24 H (0-2) /lpf Urine Mucus Many H (None) /hpf Assessment and Plan Assessment: Schizophrenia, bipolar and other psychiatric illnesses, management as per psychiatry primary team Hypertension, continue same medication history of sleep apnea on CPAP/BiPAP, not an active issue Acute urinary tract infection with dysuria, start Cipro 3 day We recommend patient follow up with her PCP in one week after discharge Patient was instructed with the same w Thank you for consulting us, we will see the patient on as needed basis
[2021-05-03] MEDS: carvediloL 3.125 MG TAB PO SCH ×2 (08:49→22:11)
[2021-05-03] MEDS: NICOTINE 14MG/24HR PATCH TRANSDERM SCH (08:49)
[2021-05-03] MEDS: PANTOPRAZOLE 40 MG TABLET PO SCH (08:49)
[2021-05-03] MEDS: CIPROFLOXACIN HCL 500 MG TAB PO SCH ×2 (08:49→22:11)
[2021-05-03] MEDS: cloNIDine HCL 0.1 MG TAB PO SCH ×3 (08:49→22:11)
[2021-05-03] MEDS: amLODIPine 5 MG TAB PO SCH (08:49)
[2021-05-03] MEDS: TRIHEXYPHENIDYL 2 MG TAB PO SCH ×2 (08:49→22:11)
[2021-05-03] MEDS ORDERED: ERGOCALCIFEROL 1,250 MCG (50,000 IU) CAPSULE PO SCH (09:00)
[2021-05-03] MEDS ORDERED: flUPHENAZine 2.5 MG/ML (MDV) 10 ML VIAL IM PRN (10:06)
--- NOTE | 2021-05-03 11:29 | P.PN ---
Progress Note - Text Progress Note Date: 05/03/21 Interval History: Patient was seen wandering the hallways and was directable and agreeable to sp eak with principal technical writer in the office. Patient had a blank stare at principal technical writer and was very argumentative today. She was fairly paranoid believing that the staff was out to harm her and did not have her best interest in mind. She appears to have very poor insight and judgment and stopped taking her medications at [facility] including her long-acting injection. When asked why she stopped her medications she stated "because I don't need them". She states that her mood is "fine" however patient was fairly irritable/argumentative. She states that she is sleeping fairly at nighttime. She endorsed several delusions vaguely about her family and other people she has met in the past. At this time patient denies any suicidal or homical ideations, intent or plan. She made several bizarre statements to principal technical writer and believes that she is on a "fake court order" and does not believe that she has mental illness. Patient denies any auditory, visual hallucinations. Patient denies any side effects from the medications and has been compliant with meds. Mental Status Exam: General Appearance: Patient appears to be short in stature, overweight, stated age is alert, directable, and uncooperative. Behavior: Patient is calmly seated without any agitated behavior. Argumentative and uncooperative Speech: Patient's speech is fluent and nonpressured. [place]. Demanding. Mood/Affect: Mood is "fine", affect is incongruent and constricted. Suicidality/Homicidality: Patient denies having any suicidal or homicidal ideation intent or plan. Perceptions: Patient denies any visual hallucinations and denies any auditory hallucinations Though content/process: Very poor judgment and insight into her condition. Several delusions and bizarre statements. Argumentative. Memory and concentration: AOX3, grossly intact for the purposes of this session Judgment and insight: Poor Assessment Schizophrenia Nicotine use disorder Plan: -Patient continues to meet criteria for inpatient psychiatric admission for s ymptom stabilization and safety. Patient has not signed medication consent and was placed in patient's chart. -Medications: According to [facility] records, patient was last given her Prolixin dose in late November 2020. The plan will be to start patient back on Prolixin by mouth 2.5 mg twice a day for psychosis and if patient refuses by mouth that she is to receive IM as per court order. Trihexyphenidyl 5 mg twice a day for EPS prophylaxis. -When necessary Ativan and Prolixin for agitation/aggression. -NRT - nicotine patch -SW on board for discharge planning. Encouraged the patient to participate in milieu. Patient is currently on an active treatment order until 05/25/2021.
[2021-05-03] MEDS: flUPHENAZine 2.5 MG/ML (MDV) 10 ML VIAL IM PRN ×2 (12:01→22:11)
[2021-05-03] MEDS: MULTIVITAMINS, THERA 1 EACH TAB PO SCH (15:55)
[2021-05-04] MEDS: cloNIDine HCL 0.1 MG TAB PO SCH ×3 (08:18→20:37)
[2021-05-04] MEDS: PANTOPRAZOLE 40 MG TABLET PO SCH (09:31)
[2021-05-04] MEDS ORDERED: flUPHENAZine 2.5 MG/ML (MDV) 10 ML VIAL IM PRN (10:07)
[2021-05-04] MEDS: amLODIPine 5 MG TAB PO SCH (10:19)
[2021-05-04] MEDS: carvediloL 3.125 MG TAB PO SCH ×2 (10:19→20:38)
[2021-05-04] MEDS: TRIHEXYPHENIDYL 2 MG TAB PO SCH ×2 (10:20→20:38)
[2021-05-04] MEDS: NICOTINE 14MG/24HR PATCH TRANSDERM SCH (10:20)
[2021-05-04] MEDS: CIPROFLOXACIN HCL 500 MG TAB PO SCH ×2 (10:20→20:38)
--- NOTE | 2021-05-04 10:21 | P.PN ---
Progress Note - Text Progress Note Date: 05/04/21 Interval History: Patient was seen wandering the hallways and was directable and agreeable to sp laura with card writer hand in the office. Patient continues to have a blank/constricted affect and once again was upset with the card writer hand. She asked him several times why he believes that she is on a court order and brought in the court order paperwork. She claims that "this is fake" and continues to be refusing medications. She believes that she does not need any medications at this time. She appeared to be fairly impulsive today and hostile with card writer hand and ended the conversation early without answering any further questions about her symptoms and her sleep/appetite. Patient got up and walked out of the door when card writer hand was attempting to explain to patient the meaning of the court order in regards to her treatment. Mental Status Exam: General Appearance: Patient appears to be short in stature, overweight, stated age is alert, directable, and uncooperative. Behavior: Patient is calmly seated without any agitated behavior. Argumentative and uncooperative Speech: Patient's speech is fluent and nonpressured. [place]. Demanding. Mood/Affect: Mood is "ok", affect is incongruent and constricted. Suicidality/Homicidality: Patient denies having any suicidal or homicidal ideation intent or plan. Perceptions: Patient denies any visual hallucinations and denies any auditory hallucinations Though content/process: Very poor judgment and insight into her condition. Several delusions and bizarre statements. Argumentative. Memory and concentration: AOX3, grossly intact for the purposes of this session Judgment and insight: Chronically Poor Assessment Schizophrenia Nicotine use disorder Plan: -Patient continues to meet criteria for inpatient psychiatric admission for symptom stabilization and safety. Patient has not signed medication consent and was placed in patient's chart. -Medications: According to [facility] records, patient was last given her Prolixin dose in late November 2020. increase Prolixin by mouth 4 mg twice a day for psychosis and if patient refuses by mouth that she is to receive IM as per court order. Trihexyphenidyl 5 mg twice a day for EPS prophylaxis. -When necessary Ativan and Prolixin for agitation/aggression. -NRT - nicotine patch -SW on board for discharge planning. Encouraged the patient to participate in milieu. Patient is currently on an active treatment order until 05/25/2021.
[2021-05-04] MEDS: MULTIVITAMINS, THERA 1 EACH TAB PO SCH (15:34)
[2021-05-04] MEDS: ACETAMINOPHEN TAB 325 MG TAB PO PRN (15:35)
[2021-05-05] MEDS ORDERED: ONDANSETRON 4 MG TAB PO PRN (08:53)
--- NOTE | 2021-05-05 08:53 | P.PN ---
Progress Note - Text Progress Note Date: 05/05/21 Interval History: Patient was seen wandering the hallways and was directable and agreeable to sp laura with freelance writer in the office. Patient was insistent on seeing doctor first thing this morning and wanted to speak about her medications. She continues to state that she does not need antipsychotic meds and was vague about why she cannot take the meds. She has been refusing most of her medical meds and states "I dont want to ". She continues to have poor insight and judgment. She states that she slept throughout the night. Patient continues to have a blank/constricted affect. She appears to be less irritable and labile today. She is denying any AH or Vh or denies any suicidal or homicidal ideations, intent or plan. Mental Status Exam: General Appearance: Patient appears to be short in stature, overweight, stated age is alert, directable, and uncooperative Behavior: Patient is calmly seated without any agitated behavior. Argumentative and uncooperative, improving mildly Speech: Patient's speech is fluent and nonpressured. [place]. Demanding. Mood/Affect: Mood is "fine", affect is incongruent and constricted. Suicidality/Homicidality: Patient denies having any suicidal or homicidal ideation intent or plan. Perceptions: Patient denies any visual hallucinations and denies any auditory hallucinations Though content/process: Very poor judgment and insight into her condition. Several delusions and bizarre statements, improving mildly Memory and concentration: AOX3, grossly intact for the purposes of this session Judgment and insight: Chronically Poor Assessment Schizophrenia Nicotine use disorder Plan: -Patient continues to meet criteria for inpatient psychiatric admission for symptom stabilization and safety. Patient has not signed medication consent and was placed in patient's chart. -Medications: According to [facility] records, patient was last given her Prolixin dose in late November 2020. Prolixin by mouth 4 mg twice a day for psychosis and if patient refuses by mouth that she is to receive IM as per court order. Trihexyphenidyl 5 mg twice a day for EPS prophylaxis. add zofran prn for nausea/vomitting -When necessary Ativan and Prolixin for agitation/aggression. -NRT - nicotine patch -SW on board for discharge planning. Encouraged the patient to participate in milieu. Patient is currently on an active treatment order until 05/25/2021.
[2021-05-05] MEDS: cloNIDine HCL 0.1 MG TAB PO SCH ×3 (09:31→20:18)
[2021-05-05] MEDS: PANTOPRAZOLE 40 MG TABLET PO SCH (10:04)
[2021-05-05] MEDS: CIPROFLOXACIN HCL 500 MG TAB PO SCH ×2 (10:05→20:22)
[2021-05-05] MEDS: amLODIPine 5 MG TAB PO SCH (10:05)
[2021-05-05] MEDS: carvediloL 3.125 MG TAB PO SCH ×2 (10:05→20:22)
[2021-05-05] MEDS: NICOTINE 14MG/24HR PATCH TRANSDERM SCH (10:05)
[2021-05-05] MEDS: TRIHEXYPHENIDYL 2 MG TAB PO SCH ×2 (10:06→20:22)
[2021-05-05] MEDS: ACETAMINOPHEN TAB 325 MG TAB PO PRN ×2 (13:55→21:11)
[2021-05-05] MEDS: MULTIVITAMINS, THERA 1 EACH TAB PO SCH (15:43)
[2021-05-06] MEDS: ACETAMINOPHEN TAB 325 MG TAB PO PRN ×2 (06:56→15:36)
[2021-05-06] MEDS: PANTOPRAZOLE 40 MG TABLET PO SCH (08:33)
[2021-05-06] MEDS: cloNIDine HCL 0.1 MG TAB PO SCH ×3 (08:35→21:42)
[2021-05-06] MEDS: amLODIPine 5 MG TAB PO SCH (09:04)
[2021-05-06] MEDS: TRIHEXYPHENIDYL 2 MG TAB PO SCH ×2 (09:05→21:44)
[2021-05-06] MEDS: NICOTINE 14MG/24HR PATCH TRANSDERM SCH (09:05)
[2021-05-06] MEDS: carvediloL 3.125 MG TAB PO SCH ×2 (09:05→21:43)
[2021-05-06] MEDS ORDERED: fluPHENAZine DECANOATE 25 MG/ML 5ML MDV IM ONE (10:16)
--- NOTE | 2021-05-06 10:21 | P.PN ---
Progress Note - Text Progress Note Date: 05/06/21 Interval History: Patient was seen lying in her bed this morning and did not want to get up to s peak to writer producer. She was agreeable to speak to writer producer in her room however. She appeared to have improvement in her impulsivity and her irritability today. She claims that she is doing "fine" and is denying any complaints. She continues to be fixated on her medications and claims that she does not need to take them any longer. She also claims that the court order is "fake" and states that she does not know how they got the court order when she never appeared in court. She is denying any depression or anxiety today. She claims that she is able to sleep fairly throughout the night. She claims that she does not want to go to any groups. She is denying any AH or Vh or denies any suicidal or homicidal ideations, intent or plan. Mental Status Exam: General Appearance: Patient appears to be short in stature, overweight, stated age is alert, directable, and more cooperative today. Behavior: Patient is calmly seated without any agitated behavior. less argumentative, improving mildly Speech: Patient's speech is fluent and nonpressured. [place]. Demanding. Mood/Affect: Mood is "ok", affect is congruent and constricted. Suicidality/Homicidality: Patient denies having any suicidal or homicidal ideation intent or plan. Perceptions: Patient denies any visual hallucinations and denies any auditory hallucinations Though content/process: Very poor judgment and insight into her condition. [place]. Memory and concentration: AOX3, grossly intact for the purposes of this session Judgment and insight: Chronically Poor Assessment Schizophrenia Nicotine use disorder Plan: -Patient continues to meet criteria for inpatient psychiatric admission for symptom stabilization and safety. Patient has not signed medication consent and was placed in patient's chart. -Medications: Ordered Prolixin D 37.5 mg IM today and next dose to be given in 14 days. Prolixin by mouth 4 mg twice a day for psychosis and if patient refuses by mouth that she is to receive IM as per court order. Trihexyphenidyl 5 mg twice a day for EPS prophylaxis. add zofran prn for nausea/vomitting -When necessary Ativan and Prolixin for agitation/aggression. -NRT - nicotine patch -SW on board for discharge planning. Encouraged the patient to participate in milieu. Patient is currently on an active treatment order until 05/25/2021. likely discharge tomorrow vs. monday back to [place].
[2021-05-06] MEDS: MULTIVITAMINS, THERA 1 EACH TAB PO SCH (16:49)
[2021-05-06 21:44] VITALS: RESP 18
[2021-05-07] MEDS: ACETAMINOPHEN TAB 325 MG TAB PO PRN (06:40)
[2021-05-07] MEDS: amLODIPine 5 MG TAB PO SCH (06:50)
[2021-05-07] MEDS: cloNIDine HCL 0.1 MG TAB PO SCH (06:50)
[2021-05-07 06:52] VITALS: BP 177/102; PULSE 118; TEMP 96.8
[2021-05-07] MEDS: PANTOPRAZOLE 40 MG TABLET PO SCH (09:05)
[2021-05-07] MEDS: carvediloL 3.125 MG TAB PO SCH (09:05)
[2021-05-07] MEDS: NICOTINE 14MG/24HR PATCH TRANSDERM SCH (09:06)
[2021-05-07] MEDS: TRIHEXYPHENIDYL 2 MG TAB PO SCH (09:06)
--- NOTE | 2021-05-07 09:59 | P.DS ---
Providers Date of admission: 05/01/21 20:45 Expected date of discharge: 05/07/21 Attending physician: Tay Pulido MD Consults: 05/01/21 21:22 Consult Physician Routine Consulting Provider: Stevie Bray Consult Reason/Comments: For H & P for Medical Follow Up Do you want consulting provider notified?: Yes, Notify in am Primary care physician: Stated None - Discharge Diagnosis(es) (1) Schizophrenia Current Visit: Yes Status: Acute Priority: High (2) Nicotine dependence Current Visit: Yes Status: Acute Priority: Low Hospital Course: Admission HPI: Admission note was completed by Dr. Bagley "Patient is a this is a 55-year-old female. She reported receiving Social Security benefits. Patient then says "I have several children. Patient presented to the hospital by law enforcement for pickup order due to medication noncompliance and was described being paranoid. The patient was admitted on the medical floor for observation because she was found to have elevated blood pressure and hypokalemia. The patient was transferred into the psychiatric unit after being medically cleared. It should be noted the patient is a poor historian and difficult to engage. She states she does not want to go back to [facility]. She states " They messed with me ". Patient states "Aditi been after me for over 20 years. Patient states "I'm very smart woman ". then says " They took my money and my state ID " then says "I don't need psych medications, I'm not crazy ". Apparently the patient demonstrated having paranoia, bizarre loose initiation of thought process. Patient denies any suicidal or homicidal ideations intent or plan. At this time patient denies any auditory or visual hallucinations. Patient denies any flight of ideas racing thoughts and increased in goal directed behavior. It should be noted the patient was in this facility from 07/27/2020 to 08/10/2020. She was diagnosed with schizophrenia. She was discharged to [place] home on the Prolixin decanoate 50 mg weekly Trintellix 20 mg daily and Artane." Hospital course: Upon admission to the unit patient was initially irritable, psychotic and hostile. Patient was however admitted involuntarily and already on a court order which expires 25 May. Patient got along well with other patients on the unit and followed unit protocol. Patient was compliant with the medications and denied any side effects throughout hospital course. Patient was started on Prolixin by mouth 4 mg twice a day for psychosis and patient was given Prolixin D 37.5 mg IM on 05/06/2021 and will be due for her next dose on 05/20/2021. Patient was also on Artane 5 mg twice a day however did not take it while on the unit. Patient was reluctant to participate in group during the hospitalization. Patient was also seen by medical team for history and physical exam. Throughout the course of the hospitalization patient gradually improved with regards to psychosis, irritability and mood, sleep and return back to her baseline level of functioning. Patient has chronically poor insight into her mental illness and need for treatment. On the day of discharge patient denied any suicidal or homicidal ideations intent or plan denied any auditory or visual hallucinations. Patient endorsed wanting to live for her future The patient denied any access to guns or weapons. Patient denied any paranoia and did not endorse any delusions. Patient does not have a significant history of substance abuse however was counseled on abstaining from all substances including alcohol and marijuana. Patient was also counseled on the medications and need for regular compliance and was encouraged to follow-up with their outpatient appointment for mental health and also for primary care. tea tree farm worker reached at the patient's guardian to coordinate discharge for today back to [place] with [facility] follow-up. Mental status exam: General Appearance: Patient appears to be overweight, stated age is alert, directable and attempts to be cooperative. Patient is in no acute distress and has improved hygiene and grooming Behavior: Patient is calmly seated without any agitated behavior. Speech: Patient's speech is fluent and nonpressured. Mood/Affect: Patient reports their mood is "good", affect is congruent and constricted Suicidality/Homicidality: Patient denies having any suicidal or homicidal i deation intent or plan. Perceptions: Patient denies any auditory or visual hallucinations. Though content/process: There is no evidence of any delusional thought content and thought process is linear and goal-directed. Memory and concentration: AOX3, grossly intact for the purposes of this session. Can spell "WORLD" backwards correctly. Judgment and insight: chronically poor, however has improved with guarded prognosis Impression: Schizophrenia Nicotine dependence Plan: -Continue with discharge today as patient has improved and stabilized psychiatrically and is not currently an imminent threat to herself and/or others. Patient will remain at chronically elevated risk for harm to self and/or others due to her chronically poor insight and judgment. -Continue medications: Prolixin D 37.5 mg IM, first dose was given on 05/06/2021 and next dose will be due on 05/20/2021. Artane 5mg bid for eps prophylaxis -Patient was counseled on the need for medication compliance and appropriate follow-up at mental health and also primary care for medical issues. Patient verbalized understanding and agreed. -Social work to arrange with guardian patient's discharge today back to [place] with [facility] follow-up. Social work also to arrange for patients follow up appointments for psychiatric care along with follow up with primary care provider. -Patient counseled on abstaining from recreational drugs and marijuana and alcohol. Was informed/educated on the adverse effects on their physical and mental health. Patient verbally agreed and understood. -Patient was instructed to return to the hospital or seek immediate medical care if their psychiatric or medical symptoms do worsen or reoccur. Allergies Allergy/AdvReac Type Severity Reaction Status Date / Time propoxyphene Allergy Unknown Verified 05/02/21 03:44 risperidone Allergy Unknown Verified 05/02/21 03:44 diphenhydramine AdvReac Itching Verified 05/02/21 03:44 [From Benadryl] Iodinated Contrast Media AdvReac Rash/Hives Verified 05/02/21 03:44 latex AdvReac Rash/Hives Verified 05/02/21 03:44 Penicillins AdvReac Rash/Hives Verified 05/02/21 03:44 Quinolones AdvReac Rash/Hives Verified 05/02/21 03:44 Sulfa (Sulfonamide AdvReac Rash/Hives Verified 05/02/21 03:44 Antibiotics) Laboratory Results Estimated Ave Glu mg/dL 117 05/01/21 11:24 Hemoglobin A1c 5.7 % (4.0-6.0) 05/01/21 11:24 TSH 0.412 mIU/L (0.465-4.680) L 05/01/21 11:24 Free T4 1.93 ng/dL (0.78-2.19) 05/01/21 11:24 Urine Color Yellow 05/01/21 22:04 Urine Appearance Turbid (Clear) H 05/01/21 22:04 Urine pH 5.5 (5.0-8.0) 05/01/21 22:04 Ur Specific [place] 1.026 (1.001-1.035) 05/01/21 22:04 Urine Protein 1+ (Negative) H 05/01/21 22:04 Urine Glucose (UA) Negative (Negative) 05/01/21 22:04 Urine Ketones Negative (Negative) 05/01/21 22:04 Urine Blood Trace (Negative) H 05/01/21 22:04 Urine Nitrite Negative (Negative) 05/01/21 22:04 Urine Bilirubin Negative (Negative) 05/01/21 22:04 Urine Urobilinogen 4.0 mg/dL (<2.0) 05/01/21 22:04 Ur Leukocyte Esterase Negative (Negative) 05/01/21 22:04 Urine RBC 6 /hpf (0-5) H 05/01/21 22:04 Urine WBC 4 /hpf (0-5) 05/01/21 22:04 Ur Squamous Epith Cells 61 /hpf (0-4) H 05/01/21 22:04 Urine Bacteria Many /hpf (None) H 05/01/21 22:04 Hyaline Casts 24 /lpf (0-2) H 05/01/21 22:04 Urine Mucus Many /hpf (None) H 05/01/21 22:04 Urine Opiates Screen Negative ng/mL (Negative) 05/01/21 22:04 Urine Methadone Screen Negative ng/mL (Negative) 05/01/21 22:04 Ur Propoxyphene Screen Negative ng/mL (Negative) 05/01/21 22:04 Urine Barbiturates Negative ng/mL (Negative) 05/01/21 22:04 Ur Phencyclidine Scrn Negative ng/mL (Negative) 05/01/21 22:04 Ur Amphetamine Screen Negative ng/mL (Negative) 05/01/21 22:04 U Benzodiazepines Scrn Negative ng/mL (Negative) 05/01/21 22:04 Urine Cocaine Screen Negative ng/mL (Negative) 05/01/21 22:04 U Cannabinoids Screen Negative ng/mL (Negative) 05/01/21 22:04 Urine Alcohol Negative mg/dL (Negative) 05/01/21 22:04 Vital Signs Temp 96.8 F L 05/07/21 06:51 Pulse 118 H 05/07/21 06:51 Resp 18 05/07/21 06:51 BP 177/102 05/07/21 06:51 Pulse Ox 96 05/05/21 20:15 Patient Condition at Discharge: Stable Plan - Discharge Summary New Discharge Prescriptions: New Trihexyphenidyl [Artane] 5 mg PO BID 30 Days tab cloNIDine HCL [Catapres] 0.1 mg PO TID 30 Days tab carvediloL [Coreg] 3.125 mg PO BID 30 Days tab Nicotine 14Mg/24Hr Patch [Habitrol] 1 patch TRANSDERM DAILY 14 Days patch amLODIPine [Norvasc] 5 mg PO DAILY 30 Days tab Pantoprazole [Protonix] 40 mg PO AC-BRKFST 30 Days tablet.dr [place] Ergocalciferol (Vitamin D2) [Drisdol (50,000 Iu)] 1,250 mcg PO MO Multivitamins, Thera [Multivitamin (formulary)] 1 tab PO DAILY@1630 Phenyleph/Pramoxin/Glycr/W.pet [Preparation H Cream] 1 applic RECTAL TID PRN PRN Reason: Hemorrhoids Changed fluPHENAZine decanoate [Prolixin Decanoate] 37.5 mg IM Q14D #1 ml Discontinued Omeprazole 20 mg PO DAILY amLODIPine [Norvasc] 5 mg PO DAILY Loperamide HCl [Imodium A-D] 2 mg PO DAILY PRN PRN Reason: Diarrhea Ibuprofen [Motrin] 400 mg PO TID PRN PRN Reason: Fever And/ Or Pain Acetaminophen [Tylenol] 650 mg PO Q8H PRN PRN Reason: Fever And/ Or Pain Trihexyphenidyl [Artane] 5 mg PO BID #60 tab HYDROcodone/APAP 5-325MG [[place] 5-325] 1 tab PO Q6H PRN PRN Reason: Pain Carvedilol [Coreg] 3.125 mg PO BID #0 Magnesium Hydroxide [Milk of Magnesia] 2,400 mg PO DAILY PRN PRN Reason: Constipation fluPHENAZine HCl 20 mg PO HS cloNIDine HCL [Catapres] 0.1 mg PO TID #0 Discharge Medication List Ergocalciferol (Vitamin D2) [Drisdol (50,000 Iu)] 1,250 mcg PO MO 11/02/18 [History] Multivitamins, Thera [Multivitamin (formulary)] 1 tab PO DAILY@1630 07/10/20 [History] Phenyleph/Pramoxin/Glycr/W.pet [Preparation H Cream] 1 applic RECTAL TID PRN 04/30/21 [History] Nicotine 14Mg/24Hr Patch [Habitrol] 1 patch TRANSDERM DAILY 14 Days patch 05/07/21 [Rx] Pantoprazole [Protonix] 40 mg PO AC-BRKFST 30 Days tablet. 05/07/21 [Rx] Trihexyphenidyl [Artane] 5 mg PO BID 30 Days tab 05/07/21 [Rx] amLODIPine [Norvasc] 5 mg PO DAILY 30 Days tab 05/07/21 [Rx] carvediloL [Coreg] 3.125 mg PO BID 30 Days tab 05/07/21 [Rx] cloNIDine HCL [Catapres] 0.1 mg PO TID 30 Days tab 05/07/21 [Rx] fluPHENAZine decanoate [Prolixin Decanoate] 37.5 mg IM Q14D #1 ml 05/07/21 [Rx] Follow up Appointment(s)/Referral(s): [facility] [Outside] - 05/10/21 4:00 pm (05-10-21 @ 4:00 with [place] at [place] 05-12-21 @ 1:[address] Valdez at [facility]) [facility] [NON-STAFF] - 1 Week Patient Instructions/Handouts: How to Stop Smoking (DC), Schizophrenia (DC) Activity/Diet/Wound Care/Special Instructions: Activity and diet as tolerated. Avoid the use of street drugs and alcohol. Take all medications as prescribed. When you are in need of refills on your medications please contact your medical provider and/or outpatient psychiatrist to have this done. Please go to scheduled outpatient appointment for aftercare treatment. If symptoms return or become worse, call the crisis line at and/or go to the nearest emergency room for evaluation. Discharge Disposition: OTHER INSTITUTION NOT DEFINED
== END 2021-05-07 12:06 | disposition other institution (70) | DRG 885 ==
LOC: 3MHU 20:45
PROVIDERS: ADMIT Psychiatry & Neurology Psychiatry; ATTEND Psychiatry & Neurology Psychiatry
DX: F20.9 Schizophrenia, unspecified (principal); N39.0 Urinary tract infection, site not specified; E87.6 Hypokalemia; I10 Essential (primary) hypertension; F31.9 Bipolar disorder, unspecified; J44.9 Chronic obstructive pulmonary disease, unspecified; F17.210 Nicotine dependence, cigarettes, uncomplicated; Z88.5 Allergy status to narcotic agent; Z88.0 Allergy status to penicillin; Z88.2 Allergy status to sulfonamides; Z88.8 Allergy status to other drugs, medicaments and biological substances; Z91.14 Patient's other noncompliance with medication regimen; G47.30 Sleep apnea, unspecified; Z79.899 Other long term (current) drug therapy; Z87.828 Personal history of other (healed) physical injury and trauma
CPT/HCPCS: 36415; 80048; 80053; 80306; 81001; 82075; 83036; 83880; 84439; 84443; 85025

== ENCOUNTER 2021-05-07 20:28 | Inpatient (IN) | payer MEDICARE, MEDICAID ==
--- NOTE | 2021-05-07 21:00 | ED ---
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 The patient states however that she was just discharged today from the behavioral health unit, and believes that there was a mistake. She denies depression. Patient denies suicidal and homicidal ideation. Complaint: other -: hour(s) Associated Psychiatric Symptoms: none History of same: No Quality: constant Improves With: none Worsens With: none - Related Data Home Medications Medication Instructions Recorded Confirmed Ergocalciferol (Vitamin D2) 1,250 mcg PO MO 08/03/18 05/07/21 [Drisdol (50,000 Iu)] Multivitamins, Thera [Multivitamin 1 tab PO DAILY@1630 07/10/20 05/07/21 (formulary)] Phenyleph/Pramoxin/Glycr/W.pet 1 applic RECTAL TID PRN 04/30/21 05/07/21 [Preparation H Cream] Previous Rx's Medication Instructions Recorded Nicotine 14Mg/24Hr Patch [Habitrol] 1 patch TRANSDERM DAILY 14 Days 05/07/21 patch Pantoprazole [Protonix] 40 mg PO AC-BRKFST 30 Days 05/07/21 tablet. Trihexyphenidyl [Artane] 5 mg PO BID 30 Days tab 05/07/21 amLODIPine [Norvasc] 5 mg PO DAILY 30 Days tab 05/07/21 carvediloL [Coreg] 3.125 mg PO BID 30 Days tab 05/07/21 cloNIDine HCL [Catapres] 0.1 mg PO TID 30 Days tab 05/07/21 fluPHENAZine decanoate [Prolixin 37.5 mg IM Q14D #1 ml 05/07/21 Decanoate] Allergies Allergy/AdvReac Type Severity Reaction Status Date / Time propoxyphene Allergy Unknown Verified 05/07/21 20:37 risperidone Allergy Unknown Verified 05/07/21 20:37 diphenhydramine AdvReac Itching Verified 05/07/21 20:37 [From Benadryl] Iodinated Contrast Media AdvReac Rash/Hives Verified 05/07/21 20:37 latex AdvReac Rash/Hives Verified 05/07/21 20:37 Penicillins AdvReac Rash/Hives Verified 05/07/21 20:37 Quinolones AdvReac Rash/Hives Verified 05/07/21 20:37 Sulfa (Sulfonamide AdvReac Rash/Hives Verified 05/07/21 20:37 Antibiotics) Review of Systems ROS Statement: Those systems with pertinent positive or pertinent negative responses have been documented in the HPI. ROS Other: All systems not noted in ROS Statement are negative. Constitutional: Denies: fever, chills Respiratory: Denies: cough, dyspnea Cardiovascular: Denies: chest pain, palpitations Gastrointestinal: Denies: abdominal pain, vomiting, diarrhea Musculoskeletal: Denies: back pain Skin: Denies: rash Neurological: Denies: headache Psychiatric: Denies: depression, auditory hallucinations, visual hallucinations, homicidal thoughts, suicidal thoughts Past Medical History Past Medical History: Chest Pain / Angina, Hypertension, Respiratory Disorder, Sleep Apnea/CPAP/BIPAP Additional Past Medical History / Comment(s): head injury in the past, cyst on right kidney History of Any Multi-Drug Resistant Organisms: None Reported Past Surgical History: Section, Heart Catheterization, Uterine Ablation Additional Past Surgical History / Comment(s): eye surgery, lithotripsy, OVARIAN CYST REMOVED RIGHT SIDE Past Anesthesia/Blood Transfusion Reactions: No Reported Reaction Past Psychological History: Anxiety, Bipolar, Depression, Schizophrenia Smoking Status: Current every day smoker Past Alcohol Use History: None Reported Past Drug Use History: None Reported - Past Family History Mother Family Medical History: Cancer Father Family Medical History: Unable to Obtain General Exam General appearance: alert, in no apparent distress Head exam: Present: atraumatic, normocephalic Respiratory exam: Present: normal lung sounds bilaterally. Absent: respiratory distress, wheezes, rales, rhonchi, stridor Cardiovascular Exam: Present: regular rate, normal rhythm, normal heart sounds. Absent: systolic murmur, diastolic murmur, rubs, gallop Extremities exam: Present: normal inspection, normal capillary refill. Absent: pedal edema, calf tenderness Neurological exam: Present: alert Psychiatric exam: Present: normal affect, normal mood. Absent: depressed, agitated, anxious, flat affect, manic, homicidal ideation, suicidal ideation Skin exam: Present: warm, dry, intact, normal color. Absent: rash Course Vital Signs 05/07/21 20:32 Temperature 98 F Pulse Rate 82 Respiratory 18 Rate O2 Sat by Pulse 96 Oximetry Disposition Clinical Impression: Mood disorder Disposition: ADMITTED IP TO THIS HOSP Condition: Fair Is patient prescribed a controlled substance at d/c from ED?: No Referrals: None,Stated [Primary Care Provider] - 1-2 days
[2021-05-08] MEDS ORDERED: MAGNESIUM HYDROXIDE 2,400 MG/10 ML CUP PO PRN (00:25)
[2021-05-08] MEDS ORDERED: LORazepam 2 MG/ML INJ IM PRN (00:28)
[2021-05-08] MEDS ORDERED: haloperidoL 5 MG TAB PO PRN (00:29)
[2021-05-08] MEDS ORDERED: HALOPERIDOL LACTATE 5 MG/ML 1 ML VIAL IM PRN (00:29)
[2021-05-08] MEDS: ACETAMINOPHEN TAB 325 MG TAB PO PRN ×3 (07:18→19:33)
[2021-05-08] MEDS: cloNIDine HCL 0.1 MG TAB PO SCH ×3 (09:06→20:08)
[2021-05-08] MEDS: amLODIPine 5 MG TAB PO SCH (11:07)
[2021-05-08] MEDS: carvediloL 3.125 MG TAB PO SCH ×2 (11:07→16:46)
[2021-05-08] MEDS: PANTOPRAZOLE 40 MG TABLET PO SCH (11:07)
[2021-05-08] MEDS: TRIHEXYPHENIDYL 2 MG TAB PO SCH ×2 (11:08→20:08)
[2021-05-08] MEDS: NICOTINE 14MG/24HR PATCH TRANSDERM SCH (11:08)
[2021-05-08] MEDS: LORazepam 1 MG TAB PO PRN (20:55)
[2021-05-08] MEDS: MAG HYDROX/AL HYDROX/SIMETH 30 ML CUP PO PRN (21:19)
--- NOTE | 2021-05-09 00:57 | P.HP ---
Psychiatric H&P - . H&P Date: 05/08/21 History & Physical: IDENTIFYING Data: The patient is a 55-year-old female who currently lives with psychiatric history of schizophrenia, unemployed on SSD. The patient has been admitted to our inpatient psychiatric services after been transferred from [facility] ED. Patient was discharged from this unit yesterday and was brought back today after she was threatening to kill people at the assisted living facility where she was discharged. The patient has been admitted on involuntary basis to our service with been on court-ordered treatment. HISTORY OF PRESENT ILLNESS: As per ED note: The patient states however that she was just discharged today from the behavioral health unit and believes that there was a mistake. She denies depression. Patient denies suicidal and homicidal ideation. as reported, the patient was discharged yesterday with diagnosis of schizophrenia and discharge medications Prolixin dec. 37.5 mg with last dose given yesterday before discharge. The patient was seen today in bed, was very guarded and paranoid. she refused assessment I don't know you and I'm not supposed to talk psychiatrist. patient refused to answer questions and it turned her head to the other side of the bed. she only denies suicidal or homicidal ideation. The patient was brought back through the hospital after a few hours from discharge because she was getting into the staff at the [facility]. As noted during previous admission, the patient stated that she doesnt want to go back to [facility]. PAST PSYCHIATRIC HISTORY: Patient refused assessment and it didn't answer questions but according to previous records: According to her records she has had multiple inpatient psychiatric admissions. She has been diagnosed with schizophrenia and bipolar disorder. There is a concern about possible schizoaffective disorder. According to her records she is ALLERGIC to Risperidone. The patient could not name all the medications that she tried before. She denies having any history of suicide attempts SUBSTANCE ABUSE HISTORY: Patient refused assessment and it didn't answer questions but according to previous records, "Patient reported smoking 1 pack of cigarettes daily. She denies drinking alcohol or using any illicit drug" Social History: Patient refused assessment and it didn't answer questions but according to previous records, "Patient was [place] raised [place] patient states that she was living at [facility]. She reported being single. She states that she has several children. She states that she receives Social Security disability income. It should be noted the patient is difficult to engage , more details about her social history needs to be gathered over the course of her hospitalization." FAMILY HISTORY: Couldn't be obtained because the patient refused assessment and didn't answer questions. Medical History: Patient refused assessment and it didn't answer questions but according to previous records, "Hypertension, COPD, history of cardiac catheterization, sleep apnea" MENTAL STATUS EVALUATION: Appearance: Appears stated age, fairly groomed, disheveled, average body built, and no specific features. Gait/ posture: Seen lying in bed, with relaxed posture. Attitude and Behavior: not engaged, refused to participate in assessment, poor eye contact during course of interview. Motor Activity: decreased psychomotor activity. Speech: spontaneous, slow rate, rhythm, and articulation. Normal volume. Not pressured. Language: Articulating. Mood: not described Affect: Restricted. Thought process: poverty of thoughts Thought content: delusions, denies suicidal thoughts, denies homicidal thoughts, denies intentions, or plans. Perception: refused assessment but probably responding to internal stimuli Alertness: No impairment. Concentration: refused the assessment Orientation: refused assessment Insight regarding psychiatric condition: poor Judgment regarding daily activities and social situation: poor Impulse control: limited Strengths: stable General Medical condition. Housing. Challenges: Poor insight about mental illness. Impulsive. Allergies Allergy/AdvReac Type Severity Reaction Status Date / Time propoxyphene Allergy Unknown Verified 05/07/21 20:37 risperidone Allergy Unknown Verified 05/07/21 20:37 diphenhydramine AdvReac Itching Verified 05/07/21 20:37 [From Benadryl] Iodinated Contrast Media AdvReac Rash/Hives Verified 05/07/21 20:37 latex AdvReac Rash/Hives Verified 05/07/21 20:37 Penicillins AdvReac Rash/Hives Verified 05/07/21 20:37 Quinolones AdvReac Rash/Hives Verified 05/07/21 20:37 Sulfa (Sulfonamide AdvReac Rash/Hives Verified 05/07/21 20:37 Antibiotics) Vital Signs Temp 98 F 05/07/21 20:32 Pulse 107 H 05/08/21 16:50 Resp 16 05/08/21 01:15 BP 161/104 05/08/21 16:50 Pulse Ox 97 05/08/21 01:15 Intake & Output 05/07/21 05/08/21 05/08/21 18:59 06:59 18:59 Weight 90.718 kg Assessment: Schizophrenia. Nicotine use disorder. TREATMENT PLAN/RECOMMENDATIONS: Medical Decision making: The patient presented with psychotic and threatening behavior The patient at high risk to others if she is not in the inpatient setting. The patient's psychiatric symptoms are not stable and she needs further management of psychiatric medications and further planning for discharge. Therefore, inpatient level of care is needed. Continue the patient inpatient for safety. Continue the patient under 15 minutes safe check for safety. Continue treatment of psychotic and mood symptoms. The patient will also be provided with individual therapy, group therapy, substance abuse counseling, gain insight, and coping skills. Consider medical consultation if any acute medical issue arise. Medications: Cotinue Artane for EPS 5 mg BID Continue Prolixin Dec. 37.5 mg IM Q 2 weeks for psychosis and mood stabilization. Continue PRN psychiatric medications for agitation, severe psychotic symptoms an d anxiety. Continue non-psychiatric medications as per medical team. Prognosis is guarded, contingent on patient has been compliant with his medications and has been followed up closely with outpatient mental health provider after discharge. The patient will be assessed on daily basis, and will be discharged back to his outpatient mental health provider upon stabilization. EXPECTED LENGTH OF STAY: 5-7 days. 05/09/21 00:45
--- NOTE | 2021-05-09 01:46 | P.PN ---
Progress Note - Text Progress Note Date: 05/08/21 patient was not appropriate for evaluation at this time
[2021-05-09] MEDS: ACETAMINOPHEN TAB 325 MG TAB PO PRN ×2 (07:54→15:45)
[2021-05-09] MEDS: PANTOPRAZOLE 40 MG TABLET PO SCH (08:50)
[2021-05-09] MEDS: NICOTINE 14MG/24HR PATCH TRANSDERM SCH (08:51)
[2021-05-09] MEDS: TRIHEXYPHENIDYL 2 MG TAB PO SCH ×2 (08:51→21:15)
[2021-05-09] MEDS: carvediloL 3.125 MG TAB PO SCH ×2 (08:52→17:40)
[2021-05-09] MEDS: cloNIDine HCL 0.1 MG TAB PO SCH ×3 (08:52→21:15)
[2021-05-09] MEDS: amLODIPine 5 MG TAB PO SCH (08:52)
[2021-05-09] MEDS: LORazepam 1 MG TAB PO PRN (14:04)
[2021-05-09] MEDS: MAG HYDROX/AL HYDROX/SIMETH 30 ML CUP PO PRN (18:39)
--- NOTE | 2021-05-09 23:40 | P.PN ---
Progress Note - Text Progress Note Date: 05/09/21 Subjective: Patient was seen today as a cross coverage for Dr. Pulido. The patient was evaluated, chart reviewed, case discussed with the treatment team. Patient continues to present the same that she is very paranoid, guarded, and he refused assessment. Patient states "I will not talk to you, and then here only to talk to medical doctors not psychiatrist". No reports of behavioral problem, agitation, or aggression. Patient seems internally preoccupied. No report of suicidal or homicidal ideation, intent, or plan. Patient continues to take her psych medications as per nursing report. Objective: Vitals has been reviewed. Mental status examination; Appearance: Appears stated age, fairly groomed, disheveled, average body built, and no specific features. Gait/ posture: Seen lying in bed, with relaxed posture. Attitude and Behavior: not engaged, refused to participate in assessment, poor eye contact during course of interview. Motor Activity: decreased psychomotor activity. Speech: spontaneous, slow rate, rhythm, and articulation. Normal volume. Not pressured. Language: Articulating. Mood: not described Affect: Restricted. Thought process: poverty of thoughts Thought content: delusions, denies suicidal thoughts, denies homicidal thoughts, denies intentions, or plans. Perception: refused assessment but probably responding to internal stimuli Alertness: No impairment. Concentration: refused the assessment Orientation: refused assessment Insight regarding psychiatric condition: poor Judgment regarding daily activities and social situation: poor Impulse control: limited Assessment: Schizophrenia. Nicotine use disorder. Plan: Continue inpatient level of care due to need for further monitoring and stabilization. Precautions: Continue 15 minutes check for safety. Consider medical consultation if any acute medical issues arise. Provide the patient individual, group therapy, substance use disorder counseling to give better insight and learn coping skills. Medications: Cotinue Artane for EPS 5 mg BID Continue Prolixin Dec. 37.5 mg IM Q 2 weeks for psychosis and mood stabilization. Last dose 05/07/2021 NRT Continue as needed medications for psychiatric emergencies including psychosis, agitation and anxiety. Continue non-psychiatric medications for medical conditions as recommended by the medical team. Discharge patient to OUTPATIENT services upon a stabilization
[2021-05-10] MEDS: ACETAMINOPHEN TAB 325 MG TAB PO PRN (06:50)
[2021-05-10] MEDS: PANTOPRAZOLE 40 MG TABLET PO SCH (08:58)
[2021-05-10] MEDS: cloNIDine HCL 0.1 MG TAB PO SCH ×3 (08:59→23:45)
[2021-05-10] MEDS: amLODIPine 5 MG TAB PO SCH (08:59)
[2021-05-10] MEDS: carvediloL 3.125 MG TAB PO SCH ×2 (09:00→18:17)
[2021-05-10] MEDS: NICOTINE 14MG/24HR PATCH TRANSDERM SCH (09:00)
[2021-05-10] MEDS: TRIHEXYPHENIDYL 2 MG TAB PO SCH ×2 (09:00→23:45)
--- NOTE | 2021-05-10 09:52 | P.PN ---
Progress Note - Text Progress Note Date: 05/10/21 Interval History: Patient was seen wandering the hallways and was insistent on speaking with eugene lopez this morning in the office. She continues to have very poor insight into her condition and need for treatment. She spoke about her "medical meds" and states that they're "all wrong". She did not describe exactly which medication she was referring to however it didn't seem like the antihypertensives. She did not give a reason as to why she does not want to take them. She continues to state that she does not need Prolixin. She claims that she does not want to return back to [place]. She stated that she ordered "Gauri Aguayo" and states that she does not know why they called the police on her to bring her back to the hospital. She states that she is feeling "fine" however has an incongruent and blunted affect. She continues to be fairly argumentative and irritable with chart writer. She states that she slept fairly throughout the night. At this time patient denies any suicidal or homical ideations, intent or plan. Patient denies any auditory, visual hallucinations. Patient denies any side effects from the medications and has been compliant with meds. Mental Status Exam: General Appearance: Patient appears to be overweight, stated age is alert, cooperative and argumentative. Behavior: Patient is calmly seated without any agitated behavior. Her committed if. Speech: Patient's speech is fluent and nonpressured. Mood/Affect: Mood is okay", affect is incongruent and constricted. Suicidality/Homicidality: Patient denies having any suicidal or homicidal ideation intent or plan. Perceptions: Patient denies any visual hallucinations and denies any auditory hallucinations Though content/process: Poverty of content, guarded/evasive. Poor insight. Memory and concentration: AOX3, grossly intact for the purposes of this session Judgment and insight: Chronically poor insight and judgment Assessment Schizophrenia nicotine dependence Plan: -Patient continues to meet criteria for inpatient psychiatric admission for symptom stabilization and safety. Patient has not signed adult voluntary form and is currently on an active treatment order until may 25 2021 and was placed in patient's chart. -Medications: Patient received Prolixin Decanoate 37.5 mg on 05/06/2021 and will be due for her next dose on 05/20/2021. Artane 5 mg twice a day for EPS prophylaxis. -When necessary Ativan and Haldol for agitation/aggression. -NRT - nicotine patch -SW on board for discharge planning. Encouraged the patient to participate in milieu. We'll need to her redo the clinical certificate and file for renewal of court order. group care worker to contact guardian to prepare for disposition.
[2021-05-11] MEDS: ACETAMINOPHEN TAB 325 MG TAB PO PRN (06:55)
[2021-05-11] MEDS: PANTOPRAZOLE 40 MG TABLET PO SCH (07:35)
[2021-05-11] MEDS: TRIHEXYPHENIDYL 2 MG TAB PO SCH ×2 (07:35→20:50)
[2021-05-11] MEDS: cloNIDine HCL 0.1 MG TAB PO SCH (07:35)
[2021-05-11] MEDS: amLODIPine 5 MG TAB PO SCH (07:36)
[2021-05-11] MEDS: carvediloL 3.125 MG TAB PO SCH ×2 (07:36→16:37)
--- NOTE | 2021-05-11 09:47 | P.PN ---
Progress Note - Text Progress Note Date: 05/11/21 Interval History: Patient was seen wandering the hallways and agreeable to speak to underwriter solicitation director. She continues to have very poor insight into her condition and need for treatment and continues to persist that she needs to speak to her gaurdian that she states shes not able to get in touch with. She was demanding that underwriter solicitation director get on the phone with her gaurdian right away and plan her discharge today. She spoke about her "medical meds" and wanted her blood pressure meds changed and wants to take a higher dose of clonidine. She continues to state that she does not need Prolixin. She states that she is feeling "ok" however has an incongruent and blunted affect. She continues to be fairly argumentative and irritable with underwriter solicitation director however this is improving mildly. She states that she slept fairly throughout the night. At this time patient denies any suicidal or homical ideations, intent or plan. Patient denies any auditory, visual hallucinations. Patient denies any side effects from the medications and has been compliant with meds. Mental Status Exam: General Appearance: Patient appears to be overweight, stated age is alert, cooperative and argumentative, mildly improved Behavior: Patient is calmly seated without any agitated behavior. Speech: Patient's speech is fluent and nonpressured. Mood/Affect: Mood is "fine", affect is incongruent and constricted. Suicidality/Homicidality: Patient denies having any suicidal or homicidal ideation intent or plan. Perceptions: Patient denies any visual hallucinations and denies any auditory hallucinations Though content/process: Poverty of content, guarded/evasive. Poor insight. Memory and concentration: AOX3, grossly intact for the purposes of this session Judgment and insight: Chronically poor insight and judgment Assessment Schizophrenia nicotine dependence Plan: -Patient continues to meet criteria for inpatient psychiatric admission for symptom stabilization and safety. Patient has not signed adult voluntary form and is currently on an active treatment order until may 25 2021 and was placed in patient's chart. -Medications: Patient received Prolixin Decanoate 37.5 mg on 05/06/2021 and will be due for her next dose on 05/20/2021. Artane 5 mg twice a day for EPS prophylaxis. -increased clonidine to 0.2 mg bid for BP -When necessary Ativan and Haldol for agitation/aggression. -NRT - nicotine patch -SW on board for discharge planning. Encouraged the patient to participate in milieu. We'll need to her redo the clinical certificate and file for renewal of court order. feeder worker power unit operator to contact guardian to prepare for disposition and new senior living placement.
[2021-05-11] MEDS: cloNIDine HCL 0.2 MG TAB PO SCH ×3 (10:03→21:56)
--- NOTE | 2021-05-12 00:57 | P.PN ---
Progress Note - Text Progress Note Date: 05/11/21 patient was again in appropriate for evaluation , medicated and sleeping deeply
[2021-05-12] MEDS: ACETAMINOPHEN TAB 325 MG TAB PO PRN (07:35)
[2021-05-12] MEDS: cloNIDine HCL 0.2 MG TAB PO SCH ×2 (07:35→21:25)
[2021-05-12] MEDS: carvediloL 3.125 MG TAB PO SCH ×2 (07:36→16:18)
[2021-05-12] MEDS: PANTOPRAZOLE 40 MG TABLET PO SCH (07:36)
[2021-05-12] MEDS: TRIHEXYPHENIDYL 2 MG TAB PO SCH ×2 (07:37→21:24)
[2021-05-12] MEDS: amLODIPine 5 MG TAB PO SCH (07:37)
--- NOTE | 2021-05-12 09:28 | P.PN ---
Progress Note - Text Progress Note Date: 05/12/21 Interval History: Patient was seen wandering the hallways and agreeable to speak to documentation writer. She continues to have very poor insight into her condition and need for treatment. She continues to ask about discharge and states that she does not want to go [place] any longer and states "that place is horrible". She contiinues to persist that she needs to speak to her gaurdian that she states shes not able to get in touch with her. She states that the clonidine dose is good at this time. She continues to state that she does not need Prolixin or any other psych meds and states that she is not schizophrenic. She states that she is feeling "ok" however has an incongruent and blunted affect. She continues to be fairly argumentative and irritable with documentation writer however this is improving mildly. She states that she slept fairly throughout the night. At this time patient denies any suicidal or homical ideations, intent or plan. Patient denies any auditory, visual hallucinations. Patient denies any side effects from the medications and has been compliant with meds. Mental Status Exam: General Appearance: Patient appears to be overweight, stated age is alert, cooperative and argumentative, mildly improved Behavior: Patient is calmly seated without any agitated behavior. Speech: Patient's speech is fluent and nonpressured. Mood/Affect: Mood is "good", affect is incongruent and constricted. Suicidality/Homicidality: Patient denies having any suicidal or homicidal ideation intent or plan. Perceptions: Patient denies any visual hallucinations and denies any auditory hallucinations Though content/process: Poverty of content, guarded/evasive. Poor insight. Memory and concentration: AOX3, grossly intact for the purposes of this session Judgment and insight: Chronically poor insight and judgment Assessment Schizophrenia nicotine dependence Plan: -Patient continues to meet criteria for inpatient psychiatric admission for symptom stabilization and safety. Patient has not signed adult voluntary form and is currently on an active treatment order until may 25 2021 and was placed in patient's chart. -Medications: Received Prolixin Decanoate 37.5 mg on 05/06/2021 and will be due for her next dose on 05/20/2021. Artane 5 mg twice a day for EPS prophylaxis. -clonidine to 0.2 mg bid for BP -When necessary Ativan and Haldol for agitation/aggression. -NRT - nicotine patch -SW on board for discharge planning. Encouraged the patient to participate in milieu. We'll need to her redo the clinical certificate and file for renewal of court order. kettle worker to contact guardian to prepare for disposition and new senior care placement.
[2021-05-12 21:27] VITALS: RESP 16
[2021-05-13] MEDS: ACETAMINOPHEN TAB 325 MG TAB PO PRN (07:22)
[2021-05-13] MEDS: cloNIDine HCL 0.2 MG TAB PO SCH (08:29)
[2021-05-13] MEDS: PANTOPRAZOLE 40 MG TABLET PO SCH (08:44)
[2021-05-13] MEDS: carvediloL 3.125 MG TAB PO SCH (08:44)
[2021-05-13] MEDS: amLODIPine 5 MG TAB PO SCH (08:45)
[2021-05-13] MEDS: TRIHEXYPHENIDYL 2 MG TAB PO SCH (08:45)
[2021-05-13 09:58] VITALS: BP 145/86; PULSE 88; TEMP 97.5
--- NOTE | 2021-05-13 10:08 | P.DS ---
Providers Date of admission: 05/08/21 00:08 Expected date of discharge: 05/13/21 Attending physician: Tay Pulido MD Consults: 05/08/21 00:25 Consult Physician Routine Consulting Provider: Ramo Helms Consult Reason/Comments: h&p Do you want consulting provider notified?: Yes Primary care physician: Stated None - Discharge Diagnosis(es) (1) Schizophrenia Current Visit: Yes Status: Acute Priority: High (2) Nicotine dependence Current Visit: Yes Status: Acute Priority: Low Hospital Course: Admission HPI: Admission note was completed by freelance writer "The patient is a 55-year-old female who currently lives with psychiatric history of schizophrenia, unemployed on SSD. The patient has been admitted to our inpatient psychiatric services afte r been transferred from [facility] ED. Patient was discharged from this unit yesterday and was brought back today after she was threatening to kill people at the assisted living facility where she was discharged. The patient has been admitted on involuntary basis to our service with been on court-ordered treatment. The patient states however that she was just discharged today from the behavioral health unit and believes that there was a mistake. She denies depression. Patient denies suicidal and homicidal ideation. As reported, the patient was discharged yesterday with diagnosis of schizophrenia and discharge medications Prolixin dec. 37.5 mg with last dose given yesterday before discharge. The patient was seen today in bed, was very guarded and paranoid. she refused assessment I don't know you and I'm not supposed to talk psychiatrist. patient refused to answer questions and it turned her head to the other side of the bed. she only denies suicidal or homicidal ideation. The patient was brought back through the hospital after a few hours from discharge because she was getting into the staff at the assisted living facility. As noted during previous admission, the patient stated that she doesnt want to go back to [facility]. " Hospital course: Upon admission to the unit patient was initially aggressive and irritable. Patient was however already on a active treatment order. Patient got along well with other patients on the unit and followed unit protocol. Patient was compliant with the medications and denied any side effects throughout hospital course. Patient was started on her home medications which included Prolixin Decanoate and Artane however patient did not take any Artane on the unit. Patient was given her last Prolixin Decanoate IM injection of 37.5 mg last on 05/06/2021 will be due for her next dose on 05/20/2021. Patient spoke of her stressors however did not engage in any group activities on the unit. Patient was also seen by medical team for history and physical exam. Throughout the course of the hospitalization patient gradually improved with regards to mood, psychosis/agitation, sleep and return back to her baseline level of functioning. On the day of discharge patient denied any suicidal or homicidal ideations intent or plan denied any auditory or visual hallucinations. Patient endorsed w anting to live for her future and her family. The patient denied any access to guns or weapons. Patient denied any paranoia and did not endorse any delusions. Patient does not have a significant history of substance abuse however was counseled on abstaining from all substances including alcohol and marijuana. Patient's guardian, [facility] and social staff worker worked together to find patient placement at [facility] until guardian is able to find patient a more permanent placement. Patient was agreeable to this plan. Patient was also counseled on the medications and need for regular compliance and was encouraged to follow-up with their outpatient appointment for mental health and also for primary care. Mental status exam: General Appearance: Patient appears to be overweight, stated age is alert, directable, and cooperative. Patient is in no acute distress and has improved hygiene and grooming Behavior: Patient is calmly seated without any agitated behavior. Speech: Patient's speech is fluent and nonpressured. Mood/Affect: Patient reports their mood is "good", affect is congruent and euthymic. Suicidality/Homicidality: Patient denies having any suicidal or homicidal ideation intent or plan. Perceptions: Patient denies any auditory or visual hallucinations. Though content/process: There is no evidence of any delusional thought content and thought process is linear and goal-directed. [place] Memory and concentration: AOX3, grossly intact for the purposes of this session. Can spell "WORLD" backwards correctly. Judgment and insight: chronically poor, however has improved with guarded prognosis Impression: Schizophrenia Nicotine dependence Plan: -Continue with discharge today as patient has improved and stabilized psychiatrically and is not currently an imminent threat to herself and/or others. Patient will remain at chronically elevated risk for harm to self and/or others due to her impulsivity and chronically poor insight and judgment. -Continue medications: Patient received Prolixin Decanoate 37.5 mg IM on 05/06/21 will be due for her next dose on 05/20/2021. Discontinued Artane as patient has not been taking it and not complaining of EPS symptoms. -Patient was counseled on the need for medication compliance and appropriate follow-up at mental health and also primary care for medical issues. Patient verbalized understanding and agreed. -Social work to coordinate with guardian and H patient is discharged today to [facility] and patients guardian will further look for more permanent placement within the next coming weeks. Social work also to arrange for patients follow up appointments with [facility] for psychiatric care along with follow up with primary care provider. -Patient counseled on abstaining from recreational drugs and marijuana and alcohol. Was informed/educated on the adverse effects on their physical and mental health. Patient verbally agreed and understood. -Patient was instructed to return to the hospital or seek immediate medical care if their psychiatric or medical symptoms do worsen or reoccur. Allergies Allergy/AdvReac Type Severity Reaction Status Date / Time propoxyphene Allergy Unknown Verified 05/07/21 20:37 risperidone Allergy Unknown Verified 05/07/21 20:37 diphenhydramine AdvReac Itching Verified 05/07/21 20:37 [From Benadryl] Iodinated Contrast Media AdvReac Rash/Hives Verified 05/07/21 20:37 latex AdvReac Rash/Hives Verified 05/07/21 20:37 Penicillins AdvReac Rash/Hives Verified 05/07/21 20:37 Quinolones AdvReac Rash/Hives Verified 05/07/21 20:37 Sulfa (Sulfonamide AdvReac Rash/Hives Verified 05/07/21 20:37 Antibiotics) Vital Signs Temp 97.5 F L 05/13/21 09:15 Pulse 88 05/13/21 09:15 Resp 16 05/13/21 09:15 BP 145/86 05/13/21 09:15 Pulse Ox 96 05/13/21 09:15 Patient Condition at Discharge: Stable Plan - Discharge Summary New Discharge Prescriptions: New cloNIDine HCL [Catapres] 0.2 mg PO BID 30 Days tab Acetaminophen Tab [Tylenol] 650 mg PO Q6HR PRN 30 Days tab PRN Reason: Pain/Discomfort carvediloL [Coreg] 3.125 mg PO BID-W/MEALS 30 Days tab Ondansetron HCl [Zofran] 4 mg PO BID PRN #10 tab PRN Reason: Nausea And Vomiting Continue Phenyleph/Pramoxin/Glycr/W.pet [Preparation H Cream] 1 applic RECTAL TID PRN PRN Reason: Hemorrhoids Ergocalciferol (Vitamin D2) [Drisdol (50,000 Iu)] 1,250 mcg PO MO 30 Days cap Nicotine 14Mg/24Hr Patch [Habitrol] 1 patch TRANSDERM DAILY 14 Days patch Multivitamins, Thera [Multivitamin (formulary)] 1 tab PO DAILY@1630 30 Days tab amLODIPine [Norvasc] 5 mg PO DAILY 30 Days tab fluPHENAZine decanoate [Prolixin Decanoate] 37.5 mg IM Q14D #1 ml Pantoprazole [Protonix] 40 mg PO AC-BRKFST 30 Days tablet. Discontinued Trihexyphenidyl [Artane] 5 mg PO BID 30 Days tab cloNIDine HCL [Catapres] 0.1 mg PO TID 30 Days tab carvediloL [Coreg] 3.125 mg PO BID 30 Days tab Discharge Medication List Phenyleph/Pramoxin/Glycr/W.pet [Preparation H Cream] 1 applic RECTAL TID PRN 04/30/21 [History] Acetaminophen Tab [Tylenol] 650 mg PO Q6HR PRN 30 Days tab 05/13/21 [Rx] Ergocalciferol (Vitamin D2) [Drisdol (50,000 Iu)] 1,250 mcg PO MO 30 Days cap 05/13/21 [Rx] Multivitamins, Thera [Multivitamin (formulary)] 1 tab PO DAILY@1630 30 Days tab 05/13/21 [Rx] Nicotine 14Mg/24Hr Patch [Habitrol] 1 patch TRANSDERM DAILY 14 Days patch 05/13/21 [Rx] Ondansetron HCl [Zofran] 4 mg PO BID PRN #10 tab 05/13/21 [Rx] Pantoprazole [Protonix] 40 mg PO AC-BRKFST 30 Days tablet. 05/13/21 [Rx] amLODIPine [Norvasc] 5 mg PO DAILY 30 Days tab 05/13/21 [Rx] carvediloL [Coreg] 3.125 mg PO BID-W/MEALS 30 Days tab 05/13/21 [Rx] cloNIDine HCL [Catapres] 0.2 mg PO BID 30 Days tab 05/13/21 [Rx] fluPHENAZine decanoate [Prolixin Decanoate] 37.5 mg IM Q14D #1 ml 05/13/21 [Rx] Follow up Appointment(s)/Referral(s): [facility] [Outside] - 05/21/21 2:30 pm (05/21/2021 with GORDY Alcantara at 2:30 at [facility]) [facility] - 1 Week Patient Instructions/Handouts: How to Stop Smoking (DC), Psychotic Disorder (DC) Activity/Diet/Wound Care/Special Instructions: Activity and diet as tolerated. Avoid the use of street drugs and alcohol. Take all medications as prescribed. When you are in need of refills on your medications please contact your medical provider and/or outpatient psychiatrist to have this done. Please go to scheduled outpatient appointment for aftercare treatment. If symptoms return or become worse, call the crisis line at and/or go to the nearest emergency room for evaluation. Discharge Disposition: OTHER INSTITUTION NOT DEFINED
[2021-05-20] MEDS ORDERED: fluPHENAZine DECANOATE 25 MG/ML 5ML MDV IM SCH (09:00)
== END 2021-05-13 13:20 | disposition other institution (70) | DRG 885 ==
LOC: EC 20:28 → 3MHU 05-08 00:08
PROVIDERS: ADMIT Psychiatry & Neurology Psychiatry; ATTEND Psychiatry & Neurology Psychiatry
DX: F20.9 Schizophrenia, unspecified (principal); R45.851 Suicidal ideations; F17.200 Nicotine dependence, unspecified, uncomplicated; I10 Essential (primary) hypertension; F31.9 Bipolar disorder, unspecified; Z82.49 Family history of ischemic heart disease and other diseases of the circulatory system; Z82.5 Family history of asthma and other chronic lower respiratory diseases; Z87.828 Personal history of other (healed) physical injury and trauma
CPT/HCPCS: 82075

== ENCOUNTER 2021-05-18 14:19 | Inpatient (IN) | payer MEDICARE, MEDICAID ==
[2021-05-18] MEDS ORDERED: HALOPERIDOL LACTATE 5 MG/ML 1 ML VIAL IM STA (14:47)
[2021-05-18] MEDS ORDERED: LORazepam 2 MG/ML INJ IM STA (14:48)
[2021-05-18] MEDS ORDERED: diphenhydrAMINE 50 MG/ML 1 ML VIAL IM STA (14:48)
--- NOTE | 2021-05-18 14:51 | ED ---
General Adult HPI <Chito Mosqueda - Last Filed: 05/18/21 18:13> - General Source: patient, police Mode of arrival: wheelchair Limitations: no limitations <Rl Russo Godwin - Last Filed: 05/24/21 07:23> - General Chief complaint: Psychiatric Symptoms Stated complaint: supply chain vice president order Time Seen by Provider: 05/18/21 14:41 - History of Present Illness Initial comments: Dictation was produced using [employer] dictation software. please excuse any grammatical, word or spelling errors. Chief Complaint: 55-year-old female well-known to emergency department for multiple psychiatric issues. She is brought in by law enforcement for medical border History of Present Illness: Patient is a 55-year-old female she is well-known known to our emergency department. Patient was recently admitted to inpatient psychiatry for psychiatric illness. His history of schizophrenia. According to law enforcement who provides roll picker border there is a court document reporting that patient has not been compliant with her medications and her appointments. Patient continues to be paranoid. She states that everybody is a illegal. She reports that the service that we are providing is a legal and the police are illegal. Court documentation was reviewed. She was uncooperative with enforcement. She was handcuffed and brought to the ER. The ROS documented in this emergency department record has been reviewed and confirmed by me. Those systems with pertinent positive or negative responses have been documented in the HPI. All other systems are other negative and/or noncontributory. PHYSICAL EXAM: General Impression: Alert and oriented x3, not in acute distress, aggressive HEENT: Normocephalic atraumatic, extra-ocular movements intact, pupils equal and reactive to light bilaterally, mucous membranes moist. Cardiovascular: Heart regular rate and rhythm Chest: Able to complete full sentences, no retractions, no tachypnea Musculoskeletal: Pulses present and equal in all extremities, no peripheral edema Motor: no focal deficits noted Neurological: CN II-XII grossly intact, no focal motor or sensory deficits noted Skin: Intact with no visualized rashes Psych: Paranoid ED course: 55-year-old female with history of psychiatric illness, schizophrenia. She presents today for roll picker border. Allegedly she's been noncompliant with her medications and follow-up appointments. Vital signs upon arrival are within acceptable limits. Patient is uncooperative and showing signs of aggression. verbal de-escalation was performed by nurse with success. Patient is cooperative resting comfortably in the chair. Physical examination is benign. Patient medically cleared for EPS evaluation. signed out to oncoming physician pending eps recommendations. (Rl Russo) - Related Data Previous Rx's Medication Instructions Recorded Acetaminophen Tab [Tylenol] 650 mg PO Q4HR PRN tab 05/21/21 Ergocalciferol (Vitamin D2) 1,250 mcg PO MO 30 Days cap 05/21/21 [Drisdol (50,000 Iu)] Furosemide [Lasix] 80 mg PO DAILY@0800 30 Days tab 05/21/21 Multivitamins, Thera [Multivitamin 1 tab PO HS@2100 30 Days tab 05/21/21 (formulary)] Ondansetron [Zofran] 4 mg PO Q8HR PRN 5 Days tab 05/21/21 Pantoprazole [Protonix] 40 mg PO AC-BRKFST@0700 30 Days 05/21/21 tab Sodium Chloride Tab 1 gm PO DAILY@0800 30 Days tab 05/21/21 amLODIPine [Norvasc] 5 mg PO DAILY@0800 30 Days tab 05/21/21 carvediloL [Coreg] 3.125 mg PO BID@0800,2100 30 Days 05/21/21 tab cloNIDine HCL [Catapres] 0.2 mg PO BID 30 Days tab 05/21/21 fluPHENAZine decanoate [Prolixin 50 mg IM Q10D #1 ml 05/21/21 Decanoate] Allergies Allergy/AdvReac Type Severity Reaction Status Date / Time propoxyphene Allergy Unknown Verified 05/18/21 18:58 risperidone Allergy Unknown Verified 05/18/21 18:58 diphenhydramine AdvReac Itching Verified 05/18/21 18:58 [From Benadryl] Iodinated Contrast Media AdvReac Rash/Hives Verified 05/18/21 18:58 latex AdvReac Rash/Hives Verified 05/18/21 18:58 Penicillins AdvReac Rash/Hives Verified 05/18/21 18:58 Quinolones AdvReac Rash/Hives Verified 05/18/21 18:58 Sulfa (Sulfonamide AdvReac Rash/Hives Verified 05/18/21 18:58 Antibiotics) Review of Systems ROS Other: All systems not noted in ROS Statement are negative. <Chito Mosqueda - Last Filed: 05/18/21 18:13> ROS Other: All systems not noted in ROS Statement are negative. <Rl Russo - Last Filed: 05/24/21 07:23> ROS Statement: Those systems with pertinent positive or pertinent negative responses have been documented in the HPI. Past Medical History Past Medical History: Chest Pain / Angina, Hypertension, Respiratory Disorder, Sleep Apnea/CPAP/BIPAP Additional Past Medical History / Comment(s): head injury in the past, cyst on right kidney History of Any Multi-Drug Resistant Organisms: None Reported Past Surgical History: Section, Heart Catheterization, Uterine Ablation Additional Past Surgical History / Comment(s): eye surgery, lithotripsy, OVARIAN CYST REMOVED RIGHT SIDE Past Anesthesia/Blood Transfusion Reactions: No Reported Reaction Past Psychological History: Anxiety, Bipolar, Depression, Schizophrenia Smoking Status: Current every day smoker Past Alcohol Use History: None Reported Past Drug Use History: None Reported - Past Family History Mother Family Medical History: Cancer Father Family Medical History: Unable to Obtain <Rl Russo - Last Filed: 05/24/21 07:23> General Exam Limitations: no limitations <Rl Russo - Last Filed: 05/24/21 07:23> Course Vital Signs 05/18/21 14:25 Temperature 98.3 F Pulse Rate 98 Respiratory 20 Rate Blood Pressure 139/80 O2 Sat by Pulse 99 Oximetry Medical Decision Making <Chito Mosqueda - Last Filed: 05/18/21 18:13> - Medical Decision Making Patient had been brought in as a pickup order for psychiatric evaluation treatment. She will be admitted to this institution. I did complete a clinical certification on this patient. (Chito Mosqueda) Disposition Is patient prescribed a controlled substance at d/c from ED?: No Decision to Admit Reason: Admit from EC Decision Date: 05/18/21 Decision Time: 18:13 <Chito Mosqueda - Last Filed: 05/18/21 18:13> <Rl Russo - Last Filed: 05/24/21 07:23> Clinical Impression: Psychosis, Poor compliance with medication Disposition: ADMITTED IP TO THIS HOSP Condition: Stable
[2021-05-18] MEDS ORDERED: MAG HYDROX/AL HYDROX/SIMETH 30 ML CUP PO PRN (21:48)
[2021-05-18] MEDS ORDERED: MAGNESIUM HYDROXIDE 2,400 MG/10 ML CUP PO PRN (21:48)
[2021-05-18] MEDS ORDERED: LORazepam 1 MG TAB PO PRN (21:48)
[2021-05-18] MEDS ORDERED: HALOPERIDOL LACTATE 5 MG/ML 1 ML VIAL IM PRN (21:54)
[2021-05-18] MEDS ORDERED: LORazepam 2 MG/ML INJ IM PRN (21:55)
[2021-05-19] MEDS: haloperidoL 5 MG TAB PO SCH ×4 (01:50→20:09)
[2021-05-19] MEDS: cloNIDine HCL 0.1 MG TAB PO SCH ×4 (03:44→20:10)
[2021-05-19] MEDS: ACETAMINOPHEN TAB 325 MG TAB PO PRN ×2 (03:46→11:24)
[2021-05-19] MEDS: carvediloL 3.125 MG TAB PO SCH ×2 (08:34→16:13)
[2021-05-19] MEDS: PANTOPRAZOLE 40 MG TABLET PO SCH (08:34)
--- NOTE | 2021-05-19 09:15 | HP ---
HISTORY AND PHYSICAL DATE OF SERVICE: 05/19/2021 IDENTIFYING DATA: The patient is a 55-year-old female. She has been residing at [facility]. She apparently was brought to the ED as a result of a pick-up order relating to a court order for treatment. CHIEF COMPLAINT: The patient has been paranoid. She has been noncompliant with medications and appointments at [facility]. HISTORY OF PRESENTING ILLNESS: The patient was not able to provide any information. Her main statement that she repeated that several times was that she is on an "illegal court order and she needs to be discharged today." It is noteworthy that the patient has had a diagnosis of schizophrenia. This is her third psychiatric hospitalization in May. She was here May 01 with paranoid delusions and disorganized behavior. She was essentially discharged and readmitted May 08 for similar circumstances. She was paranoid. She had received Prolixin Decanoate 37.5 mg on May 07. There is no further information available that the patient provides. She did say that she lives at [facility] and that that is supposed to be "a secret that no one is supposed to know about." When I attempted to ask questions about her current functioning and issues related to any potential psychiatric symptoms, she declined to answer any questions. I refer the reader to the previous two admission notes and other medical records from her two recent hospitalizations, including history and physical examinations of Santana Yip and Kevyn. She is admitted for further evaluation. SUBSTANCE USE HISTORY: The only information I have at this time is that urine drug screen of May 01, 2021, was negative. PAST MEDICAL HISTORY: Chest pain/angina, hypertension, respiratory disorder, sleep apnea/CPAP/BiPAP. FAMILY AND SOCIAL HISTORY: Please refer to previous admission notes for any information. The only information I have is that she lives at [facility]. MENTAL STATUS EXAM: Patient gave fairly good eye contact. She did not respond to almost all of the questions asked. She was restless. She had clear thoughts. She had an intense affect. Her mood was dysphoric. She was moderately distressed. She appears to present with paranoid thinking. She voiced no thoughts of harm. She did not cooperate with formal cognitive testing though appeared to be oriented to the environment and current situation. ASSESSMENT: This 55-year-old female is diagnosed with schizophrenia and is readmitted for noncompliance. Strengths include her living circumstances at [facility]. Weakness includes poor insight. DIAGNOSIS: 1. Schizophrenia. 2. Chest pain/angina. 3. Hypertension. 4. Respiratory disorder. 5. Sleep apnea/CPAP/BiPAP. RECOMMENDATIONS: Patient will be admitted for comprehensive medical, psychiatric and psychosocial evaluation. We will engage the patient in individual and group therapeutic activities. My understanding is that she received Prolixin Decanoate 37.5 mg on May 07. We will get further input from [facility] and look at continuing her on Prolixin Decanoate. We will coordinate with Mental Health in regard to other treatment issues. We will focus on stabilization and discharge planning. INESL / DERICKN: [id number] / TIA
[2021-05-19] MEDS: FUROSEMIDE 40 MG TAB PO SCH (09:26)
[2021-05-19] MEDS: SODIUM CHLORIDE TAB 1 GM TAB PO SCH ×2 (09:26→12:45)
[2021-05-19] MEDS: TRIHEXYPHENIDYL 2 MG TAB PO SCH ×2 (09:26→20:09)
[2021-05-19] MEDS: NICOTINE 14MG/24HR PATCH TRANSDERM SCH (09:27)
[2021-05-19] MEDS: ONDANSETRON 4 MG TAB PO PRN (16:09)
[2021-05-19] MEDS: MULTIVITAMINS, THERA 1 EACH TAB PO SCH (20:10)
[2021-05-20] MEDS: ONDANSETRON 4 MG TAB PO PRN ×2 (03:43→07:20)
[2021-05-20] MEDS: PANTOPRAZOLE 40 MG TABLET PO SCH (07:17)
[2021-05-20] MEDS: ACETAMINOPHEN TAB 325 MG TAB PO PRN (07:19)
[2021-05-20] MEDS: FUROSEMIDE 40 MG TAB PO SCH (08:52)
[2021-05-20] MEDS: cloNIDine HCL 0.1 MG TAB PO SCH ×4 (08:52→22:19)
[2021-05-20] MEDS: SODIUM CHLORIDE TAB 1 GM TAB PO SCH ×2 (08:52→09:27)
[2021-05-20] MEDS: TRIHEXYPHENIDYL 2 MG TAB PO SCH ×2 (08:52→22:19)
[2021-05-20] MEDS: carvediloL 3.125 MG TAB PO SCH ×2 (08:52→16:02)
[2021-05-20] MEDS: NICOTINE 14MG/24HR PATCH TRANSDERM SCH (08:53)
[2021-05-20] MEDS: haloperidoL 5 MG TAB PO SCH ×3 (08:53→22:21)
--- NOTE | 2021-05-20 09:17 | P.PN ---
Progress Note - Text Progress Note Date: 05/20/21 Interval History: Patient was seen wandering the hallways and was insistent on speaking with eugene lopez today in the office. She continues to have very poor insight into her condition and need for treatment and continues to state that she is on a "fake court order". She claims that she did not have any problems at [facility] and wants to go back there. She spoke about being picked up by the police however states that "I don't know why they did that". She claims that a help desk operator called the shoe sticks repairer on her "for no reason". She spoke today about being a grandmother and a mother and started crying. She continues to be delusional and noncompliant with her medications. She continues to state that she does not need Prolixin or any other psych meds and states that she is not schizophrenic. She states that she is feeling "ok" however has an incongruent and blunted affect. She was fairly focused on discharge today. She states that she slept fairly throughout the night. At this time patient denies any suicidal or homical ideations, intent or plan. Patient denies any auditory, visual hallucinations. Patient denies any side effects from the medications and has been compliant with meds. Mental Status Exam: General Appearance: Patient appears to be overweight, stated age is alert, co operative and argumentative, mildly improved Behavior: Patient is calmly seated without any agitated behavior. Speech: Patient's speech is fluent and nonpressured. Mood/Affect: Mood is "ok", affect is incongruent and constricted. Suicidality/Homicidality: Patient denies having any suicidal or homicidal ideation intent or plan. Perceptions: Patient denies any visual hallucinations and denies any auditory hallucinations Though content/process: Poverty of content, guarded/evasive. Poor insight. Memory and concentration: AOX3, grossly intact for the purposes of this session Judgment and insight: Chronically poor insight and judgment Assessment Schizophrenia nicotine dependence Plan: -Patient continues to meet criteria for inpatient psychiatric admission for symptom stabilization and safety. Patient has not signed adult voluntary form and is currently on an active treatment order until may 25 2021 and was placed in patient's chart. -Medications: Received Prolixin Decanoate 37.5 mg on 05/06/2021 and will be due for her next dose today however will receive 50 mg IM. Artane 5 mg twice a day for EPS prophylaxis. -clonidine 0.2 mg bid for BP -When necessary Ativan and Haldol for agitation/aggression. -NRT - nicotine patch -SW on board for discharge planning. Encouraged the patient to participate in milieu. foundry worker apprentice to contact guardian to prepare for disposition and liokely return back to [facility].
[2021-05-20] MEDS ORDERED: fluPHENAZine DECANOATE 25 MG/ML 5ML MDV IM ONE (14:00)
[2021-05-20] MEDS: MULTIVITAMINS, THERA 1 EACH TAB PO SCH (22:19)
--- NOTE | 2021-05-21 02:42 | P.PN ---
Progress Note - Text Progress Note Date: 05/20/21 patient still having delusional thoughts of being poisoned , Paranoid. patient could not be medically interviewed at this time
[2021-05-21] MEDS: ONDANSETRON 4 MG TAB PO PRN ×2 (04:42→11:42)
[2021-05-21] MEDS: PANTOPRAZOLE 40 MG TABLET PO SCH (08:30)
[2021-05-21] MEDS: carvediloL 3.125 MG TAB PO SCH (08:30)
[2021-05-21] MEDS: SODIUM CHLORIDE TAB 1 GM TAB PO SCH (08:31)
[2021-05-21] MEDS: haloperidoL 5 MG TAB PO SCH (08:31)
[2021-05-21] MEDS: FUROSEMIDE 40 MG TAB PO SCH (08:31)
[2021-05-21] MEDS: NICOTINE 14MG/24HR PATCH TRANSDERM SCH (08:31)
[2021-05-21] MEDS: TRIHEXYPHENIDYL 2 MG TAB PO SCH (08:31)
[2021-05-21] MEDS: cloNIDine HCL 0.1 MG TAB PO SCH (08:31)
[2021-05-21 08:35] VITALS: BP 174/110; PULSE 100; RESP 20; TEMP 97.1
[2021-05-21] MEDS ORDERED: cloNIDine HCL 0.1 MG TAB PO STA (09:14)
--- NOTE | 2021-05-21 09:42 | P.DS ---
Providers Date of admission: 05/18/21 21:24 Expected date of discharge: 05/21/21 Attending physician: Tay Pulido MD Consults: 05/20/21 07:48 Consult Physician Routine Consulting Provider: Ramo Helms Consult Reason/Comments: Medical Management Do you want consulting provider notified?: Yes Primary care physician: Stated None - Discharge Diagnosis(es) (1) Schizophrenia Current Visit: Yes Status: Acute Priority: High (2) Nicotine dependence Current Visit: Yes Status: Acute Priority: Low Hospital Course: Admission HPI: Admission note was completed by Dr Levine "the patient is a 55-year-old female. She has been residing at [facility]. She apparently was brought to the ED as a result of a pickup order relating to a court order for treatment. The patient has been paranoid. She has been noncompliant with medications and appointments at [facility]. The patient was not able to provide any information. Her main statement that she repeated that several times was that she is on an "legal court order and she needs to be discharged today". It is noteworthy that the patient has had a diagnosis of schizophrenia. This is her third psychiatric hospitalization in May. She was here May 01 with paranoid delusions and disorganized behavior. She was essentially discharged and readmitted May 08 for similar circumstances. She was paranoid. She had received Prolixin Decanoate 37.5 mg on May 07. She is no further information available that the patient provides. She did say that she lives at [facility] and that that is supposed to be "a secret that no one is supposed to know about." When I attempted to ask questions about her current functioning and issues related to any potential psychiatric symptoms she declined to answer any questions. I refer the reader to previous to admission notes and other medical records from her 2 recent hospitalizations including history and physical examination of Dr. Pulido. She is admitted for further evaluation." Hospital course: Upon admission to the unit patient was initially uncooperative and hostile. Patient was however already on an active court order for treatment. Patient got along well with other patients on the unit and followed unit protocol. Patient was foer the most part noncompliant with the medications for her medical conditions. Patient was given Prolixin Decanoate 50 mg IM on 05/20/2021 and will be given her next dose of 50 mg IM on 05/31/2021 and should be given to 10 days thereafter. Patient spoke of her stressors however did not go to any groups. Patient was also seen by medical team for history and physical exam. Patient was restarted back on her blood pressure medications however she refused to take most of them except for clonidine. Throughout the course of the hospitalization patient gradually improved with regards to mood, dictation/aggression, Kos is, sleep and turn back to her baseline level of functioning and has chronically poo r insight and judgment. On the day of discharge patient denied any suicidal or homicidal ideations intent or plan denied any auditory or visual hallucinations. Patient endorsed wanting to live for her future and her family. The patient denied any access to guns or weapons. Patient denied any paranoia and did not endorse any delusions. Patient does not have a significant history of substance abuse was counseled on abstaining from all substances including alcohol and marijuana. Patient was also counseled on the medications and need for regular compliance and was encouraged to follow-up with their outpatient appointment for mental health and also for primary care. Prior to discharge, social welfare clerk and [facility] liaison work with patient's guardian for disposition back to [facility] for temporary placement until patient is found a new half-way by her guardian. Mental status exam: General Appearance: Patient appears to be overweight, short, stated age is alert, attempts to cooperate. Patient is in no acute distress and has improved hygiene and grooming Behavior: Patient is calmly seated without any agitated behavior. Speech: Patient's speech is fluent and nonpressured. Mood/Affect: Patient reports their mood is "good", affect is congruent and constricted Suicidality/Homicidality: Patient denies having any suicidal or homicidal ideation intent or plan. Perceptions: Patient denies any auditory or visual hallucinations. Though content/process: There is no evidence of any delusional thought content and thought process is linear and goal-directed. Rambles at times Memory and concentration: AOX3, grossly intact for the purposes of this session. Can spell "WORLD" backwards correctly. Judgment and insight: chronically poor, however has improved with guarded progno sis Impression: Schizophrenia Nicotine dependence Plan: -Continue with discharge today as patient has improved and stabilized psychiatrically and is not currently an imminent threat to herself and/or others. Patient will remain at chronically elevated risk for harm to self and/or others due to her impulsivity and chronically poor insight and judgment. -Continue medications: Patient received Prolixin Decanoate 50 mg IM on 05/20 and will be due to 10 days on 05/31/2021. -Patient was counseled on the need for medication compliance and appropriate follow-up at mental health and also primary care for medical issues. Patient verbalized understanding and agreed. -Social work to work with patient's guardian and [facility] liaison for discharge today back to [facility]. Social work also to arrange for patients follow up appointments with [facility] for psychiatric care along with follow up with primary care provider. -Patient counseled on abstaining from recreational drugs and marijuana and alcohol. Was informed/educated on the adverse effects on their physical and mental health. Patient verbally agreed and understood. -Patient was instructed to return to the hospital or seek immediate medical care if their psychiatric or medical symptoms do worsen or reoccur. Allergies Allergy/AdvReac Type Severity Reaction Status Date / Time propoxyphene Allergy Unknown Verified 05/18/21 18:58 risperidone Allergy Unknown Verified 05/18/21 18:58 diphenhydramine AdvReac Itching Verified 05/18/21 18:58 [From Benadryl] Iodinated Contrast Media AdvReac Rash/Hives Verified 05/18/21 18:58 latex AdvReac Rash/Hives Verified 05/18/21 18:58 Penicillins AdvReac Rash/Hives Verified 05/18/21 18:58 Quinolones AdvReac Rash/Hives Verified 05/18/21 18:58 Sulfa (Sulfonamide AdvReac Rash/Hives Verified 05/18/21 18:58 Antibiotics) Vital Signs Temp 97.1 F L 05/21/21 08:33 Pulse 100 05/21/21 08:33 Resp 20 05/21/21 08:33 BP 174/110 05/21/21 08:33 Pulse Ox 95 05/21/21 03:33 Patient Condition at Discharge: Stable Plan - Discharge Summary New Discharge Prescriptions: New Acetaminophen Tab [Tylenol] 650 mg PO Q4HR PRN tab PRN Reason: Pain/Discomfort Ondansetron [Zofran] 4 mg PO Q8HR PRN 5 Days tab PRN Reason: Nausea And Vomiting Continue Sodium Chloride Tab 1 gm PO DAILY@0800 30 Days tab Ergocalciferol (Vitamin D2) [Drisdol (50,000 Iu)] 1,250 mcg PO MO 30 Days cap Furosemide [Lasix] 80 mg PO DAILY@799 30 Days tab Changed carvediloL [Coreg] 3.125 mg PO BID@799,2099 30 Days tab amLODIPine [Norvasc] 5 mg PO DAILY@00 30 Days tab cloNIDine HCL [Catapres] 0.2 mg PO BID 30 Days tab Multivitamins, Thera [Multivitamin (formulary)] 1 tab PO HS@2099 30 Days tab fluPHENAZine decanoate [Prolixin Decanoate] 50 mg IM Q10D #1 ml Pantoprazole [Protonix] 40 mg PO AC-BRKFST@699 30 Days tab Discontinued Trihexyphenidyl HCl 5 mg PO BID@799,2099 Discharge Medication List Acetaminophen Tab [Tylenol] 650 mg PO Q4HR PRN tab 05/21/21 [Rx] Ergocalciferol (Vitamin D2) [Drisdol (50,000 Iu)] 1,250 mcg PO MO 30 Days cap 05/21/21 [Rx] Furosemide [Lasix] 80 mg PO DAILY@00 30 Days tab 05/21/21 [Rx] Multivitamins, Thera [Multivitamin (formulary)] 1 tab PO HS@2099 30 Days tab 05/21/21 [Rx] Ondansetron [Zofran] 4 mg PO Q8HR PRN 5 Days tab 05/21/21 [Rx] Pantoprazole [Protonix] 40 mg PO AC-BRKFST@699 30 Days tab 05/21/21 [Rx] Sodium Chloride Tab 1 gm PO DAILY@799 30 Days tab 05/21/21 [Rx] amLODIPine [Norvasc] 5 mg PO DAILY@799 30 Days tab 05/21/21 [Rx] carvediloL [Coreg] 3.125 mg PO BID@ 30 Days tab 05/21/21 [Rx] cloNIDine HCL [Catapres] 0.2 mg PO BID 30 Days tab 05/21/21 [Rx] fluPHENAZine decanoate [Prolixin Decanoate] 50 mg IM Q10D #1 ml 05/21/21 [Rx] Follow up Appointment(s)/Referral(s): [facility] [Outside] - 05/24/21 12:30 pm (05-24-21 @ 12:30 with CUSTOMER ASSISTANCE ASSOCIATE Kandis Langley at [facility] office) None,Stated [Primary Care Provider] - 1-2 days Activity/Diet/Wound Care/Special Instructions: Activity and diet as tolerated. Avoid the use of street drugs and alcohol. Take all medications as prescribed. When you are in need of refills on your medications please contact your medical provider and/or outpatient psychiatrist to have this done. Please go to scheduled outpatient appointment for aftercare treatment. If symptoms return or become worse, call the crisis line at and/or go to the nearest emergency room for evaluation. Discharge Disposition: OTHER INSTITUTION NOT DEFINED
[2021-05-24] MEDS ORDERED: ERGOCALCIFEROL 1,250 MCG (50,000 IU) CAPSULE PO SCH (09:00)
== END 2021-05-21 13:02 | disposition home or self-care (01) | DRG 885 ==
LOC: EC 14:19 → 3MHU 21:24
PROVIDERS: ADMIT Psychiatry & Neurology Psychiatry; ATTEND Psychiatry & Neurology Psychiatry
DX: F20.9 Schizophrenia, unspecified (principal); R45.851 Suicidal ideations; F17.210 Nicotine dependence, cigarettes, uncomplicated; F31.9 Bipolar disorder, unspecified; G47.30 Sleep apnea, unspecified; I10 Essential (primary) hypertension; Z87.828 Personal history of other (healed) physical injury and trauma; Z91.14 Patient's other noncompliance with medication regimen; Z91.19 Patient's noncompliance with other medical treatment and regimen; Z88.0 Allergy status to penicillin; Z88.2 Allergy status to sulfonamides; Z88.8 Allergy status to other drugs, medicaments and biological substances; Z88.1 Allergy status to other antibiotic agents; Z91.041 Radiographic dye allergy status; Z91.040 Latex allergy status
CPT/HCPCS: 82075; 99284

== ENCOUNTER 2021-06-18 17:10 | Inpatient (IN) | payer MEDICARE, MEDICAID ==
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
[2021-06-18] MEDS ORDERED: MAGNESIUM HYDROXIDE 2,400 MG/10 ML CUP PO PRN (20:17)
[2021-06-18] MEDS ORDERED: MAG HYDROX/AL HYDROX/SIMETH 30 ML CUP PO PRN (20:17)
[2021-06-18] MEDS ORDERED: LORazepam 1 MG TAB PO PRN (20:17)
[2021-06-18] MEDS ORDERED: LORazepam 2 MG/ML INJ IM PRN (20:23)
[2021-06-18] MEDS ORDERED: HALOPERIDOL LACTATE 5 MG/ML 1 ML VIAL IM PRN (20:23)
[2021-06-18] MEDS ORDERED: haloperidoL 5 MG TAB PO PRN (20:24)
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
[2021-06-19] MEDS: NICOTINE 14MG/24HR PATCH TRANSDERM SCH (07:57)
[2021-06-19] MEDS: PANTOPRAZOLE 40 MG TABLET PO SCH (07:57)
[2021-06-19] MEDS: amLODIPine 5 MG TAB PO SCH ×2 (07:57→07:59)
[2021-06-19] MEDS: carvediloL 3.125 MG TAB PO SCH ×2 (07:57→23:07)
[2021-06-19] MEDS: cloNIDine HCL 0.2 MG TAB PO PRN (07:59)
[2021-06-20] MEDS: PANTOPRAZOLE 40 MG TABLET PO SCH (07:44)
[2021-06-20] MEDS: carvediloL 3.125 MG TAB PO SCH ×2 (07:45→19:46)
[2021-06-20] MEDS: amLODIPine 5 MG TAB PO SCH (07:45)
[2021-06-20] MEDS: cloNIDine HCL 0.2 MG TAB PO PRN ×2 (07:46→19:46)
[2021-06-20] MEDS: NICOTINE 14MG/24HR PATCH TRANSDERM SCH (07:46)
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
[2021-06-20] MEDS: ACETAMINOPHEN TAB 325 MG TAB PO PRN (19:12)
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
[2021-06-21] MEDS: cloNIDine HCL 0.2 MG TAB PO PRN ×2 (07:45→21:17)
[2021-06-21] MEDS: carvediloL 3.125 MG TAB PO SCH ×2 (07:47→21:16)
[2021-06-21] MEDS: NICOTINE 14MG/24HR PATCH TRANSDERM SCH (07:47)
[2021-06-21] MEDS: PANTOPRAZOLE 40 MG TABLET PO SCH (07:47)
[2021-06-21] MEDS: amLODIPine 5 MG TAB PO SCH (07:47)
[2021-06-21 07:49] VITALS: RESP 16
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
[2021-06-22 06:12] VITALS: PULSE 91; TEMP 97.2
[2021-06-22] MEDS: ACETAMINOPHEN TAB 325 MG TAB PO PRN (06:22)
[2021-06-22] MEDS: PANTOPRAZOLE 40 MG TABLET PO SCH (08:28)
[2021-06-22] MEDS: amLODIPine 5 MG TAB PO SCH (08:28)
[2021-06-22] MEDS: NICOTINE 14MG/24HR PATCH TRANSDERM SCH (08:28)
[2021-06-22] MEDS: carvediloL 3.125 MG TAB PO SCH (08:28)
[2021-06-22 08:32] VITALS: BP 138/76
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
== END 2021-06-22 13:05 | disposition home or self-care (01) | DRG 885 ==
LOC: EC 17:10 → 3MHU 20:12
PROVIDERS: ADMIT Psychiatry & Neurology Psychiatry; ATTEND Psychiatry & Neurology Psychiatry
DX: F20.9 Schizophrenia, unspecified (principal); Z91.128 Patient's intentional underdosing of medication regimen for other reason; E66.3 Overweight; J44.9 Chronic obstructive pulmonary disease, unspecified; Z20.822 Contact with and (suspected) exposure to COVID-19; T50.906A Underdosing of unspecified drugs, medicaments and biological substances, initial encounter; F41.9 Anxiety disorder, unspecified; I10 Essential (primary) hypertension; G47.30 Sleep apnea, unspecified; S00.81XA Abrasion of other part of head, initial encounter; R45.87 Impulsiveness; Z68.37 Body mass index [BMI] 37.0-37.9, adult; Z71.6 Tobacco abuse counseling; F17.210 Nicotine dependence, cigarettes, uncomplicated; Z79.899 Other long term (current) drug therapy; Z87.820 Personal history of traumatic brain injury; Z98.891 History of uterine scar from previous surgery; Z87.42 Personal history of other diseases of the female genital tract; Z56.0 Unemployment, unspecified; Z87.448 Personal history of other diseases of urinary system; Z98.890 Other specified postprocedural states; Y04.0XXA Assault by unarmed brawl or fight, initial encounter; Z88.0 Allergy status to penicillin; Z88.2 Allergy status to sulfonamides; Z88.8 Allergy status to other drugs, medicaments and biological substances; Z91.041 Radiographic dye allergy status; Z91.040 Latex allergy status; Z80.9 Family history of malignant neoplasm, unspecified; Z82.49 Family history of ischemic heart disease and other diseases of the circulatory system; Z82.5 Family history of asthma and other chronic lower respiratory diseases
CPT/HCPCS: 82075; 87635; 99285